=== PATIENT | male | born 1960 | race Caucasian/White ===

== ENCOUNTER 2017-07-19 17:52 | Inpatient (IN) ==
--- NOTE | 2017-07-19 18:38 | Emergency Department Report ---
Medical Clearance HPI - General Chief complaint: Medical Clearance Stated complaint: Medical Clearance for Generations Time Seen by Provider: 07/19/17 18:32 Source: patient Mode of arrival: wheelchair Limitations: no limitations - History of Present Illness HPI Narrative: 56-year-old male presents to the emergency department with a chief complaint of needing medical clearance for evaluation for generations. Patient has been acting inappropriately sexually toward staff at his skilled nursing. Patient denies homicidal/suicidal ideation or plan. Patient denies self injury or self-harm. Patient denies any pain or discomfort. Patient has 0 complaints at this time. Patient symptoms have been persistent for the past several days at his care facility. No exacerbating or remitting factors. Home medications: Home Medications Medication Instructions Recorded Confirmed Aspirin *EC* [Ecotrin] 1 tab PO DAILY 07/19/17 07/19/17 Atorvastatin Calcium 20 mg PO 1800 07/19/17 07/19/17 Bisacodyl Supp [Dulcolax] 10 mg RECTALLY PRN PRN 07/19/17 07/19/17 Cholecalciferol [Vit. D-3] 1 tab PO DAILY 07/19/17 07/19/17 Clopidogrel Bisulfate [Clopidogrel] 75 mg PO DAILY 07/19/17 07/19/17 Docusate Sodium [Colace] 1 cap PO BID 07/19/17 07/19/17 Finasteride [Proscar] 5 mg PO 1800 07/19/17 07/19/17 Furosemide [Lasix] 1 tab PO DAILY 07/19/17 07/19/17 Gabapentin 300 mg PO BID 07/19/17 07/19/17 Hydrocodone/Acetaminophen 1 tab PO Q4H PRN 07/19/17 07/19/17 [Hydrocodon-Acetaminophen 5-325] Isosorbide Mononitrate ER [Imdur] 30 mg PO DAILY 07/19/17 07/19/17 Levothyroxine Sodium 125 mcg PO 0630 07/19/17 07/19/17 Losartan Potassium 25 mg PO DAILY 07/19/17 07/19/17 Mirabegron [Myrbetriq] 50 mg PO DAILY 07/19/17 07/19/17 Multivitamin [One Daily 1 each PO DAILY 07/19/17 07/19/17 Multivitamin] Ofloxacin [Ocuflox] 1 drop LEFT EYE TID 07/19/17 07/19/17 Polyethylene Glycol 3350 [Miralax] 17 gm PO DAILY 07/19/17 07/19/17 Potassium Chloride [K-Tab ER] 20 meq PO DAILY 07/19/17 07/19/17 Tamsulosin [Flomax] 0.4 mg PO 1800 07/19/17 07/19/17 Thiamine HCl 100 mg PO DAILY 07/19/17 07/19/17 raNITIdine HCl [Ranitidine HCl] 150 mg PO 1800 07/19/17 07/19/17 Allergies/Adverse reactions: Allergies Allergy/AdvReac Type Severity Reaction Status Date / Time No Known Allergies Allergy Verified 07/19/17 18:04 Review of Systems Constitutional: Denies: fever, chills Eyes: Denies: eye pain, vision change ENT: Denies: ear pain, throat pain Cardiovascular: Denies: chest pain, palpitations Respiratory: Denies: cough, dyspnea Gastrointestinal: Denies: abdominal pain, nausea, vomiting, diarrhea Genitourinary: Denies: urgency, dysuria Musculoskeletal: Denies: back pain, arthralgia Integumentary: Denies: erythema, rash Neurological: Denies: headache, numbness Psychiatric: Denies: anxiety, depression, suicidal thoughts, homicidal thoughts Endocrine: Denies: fatigue, heat or cold intolerance Hematological/Lymphatic: Denies: easy bleeding, easy bruising Allergic/Immunologic: Denies: facial swelling, urticaria PFSH Below knee amputation, cataracts Surgical History: Below knee amputation, cataract surgery Family History: Reviewed and noncontributory - Social History Smoking status: Never smoker Substance use type: does not use Alcohol intake frequency: does not drink Physical Exam - Limitations Limitations: no limitations - General General appearance: alert, in no apparent distress - Normal Exams: Head:: Normocephalic without trauma Eyes:: Pupils are PERRLA w/ EOMI, No scleral icterus, irritation, or foreign bodies noted ENMT:: No facial trauma, nasal exudates, pharyngeal erythema, or exudates are noted Dental: No fractured, loose, or missing teeth noted Neck:: Full range of motion, without adenopathy, JVD, bruits or thyromegaly Chest/Respirations:: Clear all feliciano, with good airflow, and symmetry bilaterally Cardiovascular:: Regular rate and rhythm, without murmur or gallop, Pulses 2+ all extremities, capillary refill, <2 seconds all extremities Abdomen:: Bowel sounds positive, soft, non-tender, non-distended, no hepatosplenomegaly, masses or bruits noted Lymphatic:: No lymphadenopathy, or lymphedema noted Musculoskeletal:: No tenderness, or deformity noted, good range of motion, all extremities Integumentary:: No rashes, hives, or bruising noted, hair and nails, without abnormality Neurological:: Patient is alert, and oriented, cranial nerves, motor/sensory/ cerebellar, exams w/o gross deficits, to observation Psychiatric:: Patient exhibits, appropriate attention, emotion and affect Course Vital Signs Temperature 97.7 F 07/19/17 18:04 Pulse Rate 100 07/19/17 18:04 Respiratory Rate 16 07/19/17 18:04 Blood Pressure 130/61 07/19/17 18:04 Pulse Oximetry 95 07/19/17 18:04 Temperature 97.0 F 07/19/17 19:31 Pulse Rate 95 07/19/17 19:31 Respiratory Rate 20 07/19/17 19:31 Blood Pressure 121/60 07/19/17 19:31 Pulse Oximetry 96 07/19/17 19:31 Medical Clearance - [facility] Narrative Medical decision making narrative: Patient is discussed with Malachi from [facility] [place] who asked that if we will inspect the patient's eyes and stump and if both do not exhibit any sign of infection then the physician in [facility] [place] will complete the medical clearance evaluation as emergency department is busy. Stump and eyes appear normal. Patient is accepted at [facility] [place]. Medical clearance will be performed and the [facility] [place] unit. Patient is transferred to [facility] at this time. - Differential Diagnosis Differential Diagnosis Narrative: Metabolic disorder, behavioral disorder, depression, anxiety Disposition Clinical Impression: BEHAVIORAL DISTURBANCE Disposition: 66 To [facility] Condition: Stable Time of Disposition: 18:32 (Admit. [facility]. ) - Seen By: physician
--- OUTSIDE RECORDS SUMMARY | 2017-07-19 19:18 | External Medical Summary | Continuity of Care Document ---
:1960 Author Organization [facility] Care Team Providers Name Role Phone ERINN PADILLA MD Unavailable Unavailable Insurance Providers Payer Name Policy Number Subscriber Name Relationship Medicare A And B [id number] BrittaErinn 18 Self / Same As Patient [facility] [id number] Erinn Callejas 18 Self / Same As Patient Advance Directives Directive Response Recorded Date/Time Advanced Directives Yes 03/07/17 12:17pm Type Durable Power of Consumer Experience Consultant 03/07/17 12:17pm Chief Complaint and Reason for Visit Chief Complaint Cardiac Complaint Reason for Visit Dyspnea Problems Active Problems Medical Problem Onset Date Status Congestive heart failure Unknown Acute Dyspnea 03/07/2017 Acute Medications Current Home Medications Medication Dose Units Route Directions Days/Qty Instructions Start Date Aripiprazole 5 Mg 2.5 Mg ORAL Bedtime 12/29/16 Aspirin 81 Mg 81 Mg ORAL Daily 12/29/16 Bisacodyl 10 Mg 10 Mg RECTAL Bedtime 12/29/16 Cholecalciferol 1,000 Unit ORAL Daily 12/29/16 1,000 Unit Clopidogrel 75 Mg ORAL Daily 12/29/16 Bisulfate 75 Mg Tamsulosin Hcl 0.4 0.4 Mg ORAL Twice A Day 12/29/16 Mg Isosorbide Dinitrate 60 Mg ORAL Daily@0712/29/16 40 Mg Levothyroxine Sodium 100 Mcg ORAL Daily@0712/29/16 100 Mcg Losartan Potassium 50 Mg ORAL Daily 12/29/16 (Cozaar) 50 Mg Multivitamin 1 Each 1 Tab ORAL Daily 12/29/16 Polyethylene Glycol 17 Gm ORAL Daily 12/29/16 3350 17 Gm Potassium Chloride 20 Meq ORAL Daily@1700 12/29/16 20 Meq Thiamine Hcl 100 Mg 100 Mg ORAL Daily 12/29/16 Tramadol Hcl 100 Mg 200 Mg ORAL Daily 12/29/16 Ranitidine Hcl 300 300 Mg ORAL Bedtime 12/29/16 Mg Sulfamethoxazole/Tri 1 Tab ORAL Twice A Day 14 Days 12/29/16 methoprim (Bactrim Ds 800MG/160MG) 1 Each Carvedilol (Coreg) 12.5 Mg ORAL Twice A Day 12/29/16 12.5 Mg With Meals Docusate Sodium 100 100 Mg ORAL Twice A Day 12/29/16 Mg Gabapentin 300 Mg ORAL Twice A Day 12/29/16 (Neurontin) 300 Mg Arginine/Glutamine/C 1 Each ORAL Twice A Day 12/29/16 alcium Hmb 1 Each Cephalexin 500 Mg 500 Mg ORAL Twice A Day 10 Days 12/29/16 Furosemide 20 Mg 20 Mg ORAL Bid@0800,1200 12/29/16 Ascorbic Acid 500 Mg 500 Mg ORAL Twice A Day 12/29/16 Acetaminophen/Hydroc 1 Tab ORAL Every 4HRS as 12/29/16 odone Bitart 1 Each needed for Pain Social History Query Response Start Date Stop Date Smoking Status Former smoker Hospital Discharge Instructions No hospital discharge instructions. Plan of Care Discharge Date 03/07/17 2:13pm Disposition 01 HOME OR SELF-CARE Condition at Discharge Stable Instructions/Education Provided Shortness of Breath (Dyspnea) (DC) Prescriptions See Medication Section Referrals ERINN PADILLA MD - Additional Instructions/Education Some of your test results may not be complete prior to your leaving the Emergency Department. The Emergency Department is not authorized to give test results over the phone. Please contact the doctor's office listed in this packet of information for your final results. Follow up with your primary care physician or return to the Emergency Department for worsening or worrisome symptoms. * Emergency Department phone number: [phone], x [phone]* MEDICAL RECORD If you need copies of your X-rays, call [phone]. If you need copies of your medical record, including lab results, a signed authorization for release of records will be required. A telephone call for release of Health Information is not allowed. BILLING Billing can sometimes be confusing and frustrating. To help avoid confusion in the future, please take a moment to acquaint yourself with the billing parties for services. SERVICE BILLING [facility] Emergency Room Services [facility] Physician Services [facility] X-rays [place] [facility] Patients will receive bills for services from the appropriate provider. If you have any questions about your [facility] bill, our staff will be happy to assist you. Please call [phone], and ask for the billing department. THANK YOU for choosing [facility] as your emergency care provider! Care Plan and Goals ~~Discharge Care Plan~~ Problem: Breathing difficulty Goal: Able to breathe without shortness of air and perform usual activities. Instructions: Take medication(s) as directed. Follow physician discharge instructions. Follow up with primary care physician as directed. Use inhalers as needed. Functional Status No functional status results. Allergies, Adverse Reactions, Alerts No known allergies. Immunizations No immunization records. Vital Signs Acute Vital Signs Vital Response Date/Time Pulse 107 bpm 03/07/2017 3:20pm Respirations 14 03/07/2017 3:20pm Height 5 ft 6 in Weight 168 lb Body Mass Index 27.0 kg/m^2 Results Laboratory Results Test Name Result Units Flags Reference Collection Result Comments Date/Time Date/Time White Blood Count 9.01 10^3uL 4.0-11.0 03/07/2017 03/07/2017 12:25pm 1:07pm Red Blood Count 4.38 10^6uL L 4.50-5.50 03/07/2017 03/07/2017 12:25pm 1:07pm Hemoglobin 13.5 g/dL 13.5-17.0 03/07/2017 03/07/2017 12:25pm 1:07pm Hematocrit 40.30 % 39.00-50.00 03/07/2017 03/07/2017 12:25pm 1:07pm Mean Corpuscular 92 FL 80-100 03/07/2017 03/07/2017 Volume 12:25pm 1:07pm Mean Corpuscular 30.8 PG 26.0-34.0 03/07/2017 03/07/2017 Hemoglobin 12:25pm 1:07pm Mean Corpuscular 33.5 g/dL 31.0-37.0 03/07/2017 03/07/2017 Hemoglobin Concent 12:25pm 1:07pm Red Cell 16.0 % H 11.8-15.6 03/07/2017 03/07/2017 Distribution Width 12:25pm 1:07pm Platelet Count 181 10^3uL 150-450 03/07/2017 03/07/2017 12:25pm 1:07pm Mean Platelet 10.4 FL H 6.0-9.5 03/07/2017 03/07/2017 Volume 12:25pm 1:07pm Neutrophils (%) 59 % 51-67 03/07/2017 03/07/2017 (Auto) 12:25pm 1:07pm Lymphocytes (%) 20 % 20-46 03/07/2017 03/07/2017 (Auto) 12:25pm 1:07pm Monocytes (%) 15 % H 3-11 03/07/2017 03/07/2017 (Auto) 12:25pm 1:07pm Eosinophils (%) 4 % 0-4 03/07/2017 03/07/2017 (Auto) 12:25pm 1:07pm Basophils (%) 1 % 0-2 03/07/2017 03/07/2017 (Auto) 12:25pm 1:07pm Neutrophils # 5.3 X10^3 03/07/2017 03/07/2017 (Auto) 12:25pm 1:07pm Lymphocytes # 1.8 X10^3 03/07/2017 03/07/2017 (Auto) 12:25pm 1:07pm Monocytes # (Auto) 1.4 X10^3 03/07/2017 03/07/2017 12:25pm 1:07pm Eosinophils # 0.4 10^3uL 03/07/2017 03/07/2017 (Auto) 12:25pm 1:07pm Basophils # (Auto) 0.1 10^3uL 03/07/2017 03/07/2017 12:25pm 1:07pm Sodium Level 139 mmol/L 135-150 03/07/2017 03/07/2017 12:25pm 1:16pm Potassium Level 4.5 mmol/L 3.5-5.1 03/07/2017 03/07/2017 12:25pm 1:16pm Chloride Level 100 mmol/L 98-108 03/07/2017 03/07/2017 12:25pm 1:16pm Carbon Dioxide 24 mmol/L 22-29 03/07/2017 03/07/2017 Level 12:25pm 1:16pm Anion Gap 19.3 MEQ/L H 3-15 03/07/2017 03/07/2017 12:25pm 1:16pm Blood Urea Nitrogen 26 mg/dL H 7-18 03/07/2017 03/07/2017 12:25pm 1:16pm Creatinine 1.51 mg/dL H 0.8-1.5 03/07/2017 03/07/2017 12:25pm 1:16pm BUN/Creatinine 17 10-03/07/2017 03/07/2017 Ratio 12:25pm 1:16pm Estimat Glomerular 58.3 03/07/2017 03/07/2017 Filtration Rate 12:25pm 1:16pm Estimated GFR 48.2 03/07/2017 03/07/2017 (Non- 12:25pm 1:16pm [place] Glucose Level 92 mg/dL 70-110 03/07/2017 03/07/2017 12:25pm 1:16pm Calculated 273 mosm/L L 280-300 03/07/2017 03/07/2017 Osmolality 12:25pm 1:16pm Calcium Level 9.3 mg/dL 8.8-10.8 03/07/2017 03/07/2017 12:25pm 1:16pm Calcium/Ionized 4.0 mg/dL 3.8-4.6 03/07/2017 03/07/2017 Calcium Ratio 12:25pm 1:16pm Total Bilirubin 0.7 mg/dL 0.1-1.0 03/07/2017 03/07/2017 12:25pm 1:16pm Alkaline 97 U/L 38-126 03/07/2017 03/07/2017 Phosphatase 12:25pm 1:16pm Aspartate Amino 30 U/L 15-37 03/07/2017 03/07/2017 Transf (AST/SGOT) 12:25pm 1:16pm Alanine 36 U/L 30-65 03/07/2017 03/07/2017 Aminotransferase 12:25pm 1:16pm (ALT/SGPT) Troponin I 0.080 ng/mL 0.010-0.080 03/07/2017 03/07/2017 12:25pm 1:29pm Total Protein 7.4 g/dL 6.4-8.5 03/07/2017 03/07/2017 12:25pm 1:16pm Albumin 4.2 g/dL 3.4-5.0 03/07/2017 03/07/2017 12:25pm 1:16pm Albumin/Globulin 1.312 1.1-1.8 03/07/2017 03/07/2017 Ratio 12:25pm 1:16pm Procedures No known history of procedures. Encounters Encounter Location Arrival/Admit Date Discharge/Depart Date Attending Provider Departed Aramis 03/07/17 12:06pm 03/07/17 2:13pm KELLY PAZ Emergency Room [facility] Recent Diagnosis
--- OUTSIDE RECORDS SUMMARY | 2017-07-19 19:19 | External Medical Summary | Continuity Of Care Document ---
:1960 Author Organization [facility] Address [address] [place] [address] Phone Care Team Providers Name Role Phone ARIANA CONTRERAS DO Unavailable AISHA HAILE MD Attending Provider OTIS HICKS MD Consulting Provider Results Lab Results Visit/Account #[id number] (December 29, 2016 12:11pm - January 01, 2017 7: 05pm) Test Result Date/Time 92309-4: COMPLETE BLOOD COUNT WITH DIFF WHITE BLOOD COUNT(4.0-11.0 10E3/UL) 10.7 10E3/UL December 29, 2016 3:15pm 7.7 10E3/UL December 31, 2016 5:27am 9.0 10E3/UL January 01, 2017 6:33am RED BLOOD COUNT(4.50-5.90 10E6/UL) 3.62 10E6/UL December 29, 2016 3:15pm 3.81 10E6/UL December 31, 2016 5:27am 4.07 10E6/UL January 01, 2017 6:33am HEMOGLOBIN(13.5-17.5 G/DL) 11.0 G/DL December 29, 2016 3:15pm 11.4 G/DL December 31, 2016 5:27am 12.0 G/DL January 01, 2017 6:33am HEMATOCRIT(41.0-53.0 %) 34.5 % December 29, 2016 3:15pm 36.1 % December 31, 2016 5:27am 38.5 % January 01, 2017 6:33am MEAN CORPUSCULAR VOLUME(82.0-100.0 FL) 95.3 FL December 29, 2016 3:15pm 94.8 FL December 31, 2016 5:27am 94.6 FL January 01, 2017 6:33am 70331-3: MEAN CORPUSCULAR HEMOGLOBIN(26.0-34.0 PG) 30.4 PG December 29, 2016 3:15pm 29.9 PG December 31, 2016 5:27am 29.5 PG January 01, 2017 6:33am MEAN CORPUSCULAR HGB CONC(31.5-36.5 G/DL) 31.9 G/DL December 29, 2016 3:15pm 31.6 G/DL December 31, 2016 5:27am 31.2 G/DL January 01, 2017 6:33am RED CELL DISTRIBUTION WIDTH(11.5-14.5 %) 19.3 % December 29, 2016 3:15pm 19.1 % December 31, 2016 5:27am 19.1 % January 01, 2017 6:33am 777-3: PLATELET COUNT(150-450 10E3/UL) 185 10E3/UL December 29, 2016 3:15pm 133 10E3/UL December 31, 2016 5:27am 154 10E3/UL January 01, 2017 6:33am MEAN PLATELET VOLUME(8.2-12.4 FL) 9.3 FL December 29, 2016 3:15pm 9.2 FL December 31, 2016 5:27am 9.5 FL January 01, 2017 6:33am 770-8: NEUTROPHILS % (AUTO)(40-70 %) 85 % December 29, 2016 3:15pm 59 % December 31, 2016 5:27am 53 % January 01, 2017 6:33am LYMPHOCYTES % (AUTO)(15-45 %) 7 % December 29, 2016 3:15pm 18 % December 31, 2016 5:27am 25 % January 01, 2017 6:33am 5905-5: MONOCYTES % (AUTO)(2-10 %) 3 % December 29, 2016 3:15pm 10 % December 31, 2016 5:27am 11 % January 01, 2017 6:33am 713-8: EOSINOPHILS % (AUTO)(0-6 %) 5 % December 29, 2016 3:15pm 12 % December 31, 2016 5:27am 10 % January 01, 2017 6:33am 706-2: BASOPHILS % (AUTO)(0-1 %) 0 % December 29, 2016 3:15pm 0 % December 31, 2016 5:27am 1 % January 01, 2017 6:33am 27407-3: IMMATURE GRANS % (AUTO)(0-0 %) 0 % December 29, 2016 3:15pm 1 % December 31, 2016 5:27am 1 % January 01, 2017 6:33am NUCLEATED RBCS (AUTO)(0-0 %) 0 % December 29, 2016 3:15pm 0 % December 31, 2016 5:27am 0 % January 01, 2017 6:33am 751-8: NEUTROPHILS # (AUTO)(2.5-7.5 10E3/UL) 9.1 10E3/UL December 29, 2016 3: 15pm 4.5 10E3/UL December 31, 2016 5:27am 4.8 10E3/UL January 01, 2017 6:33am 49447-2: LYMPHOCYTES # (AUTO)(1.0-4.0 10E3/UL) 0.7 10E3/UL December 29, 2016 3:15pm 1.4 10E3/UL December 31, 2016 5:27am 2.2 10E3/UL January 01, 2017 6:33am 742-7: MONOCYTES # (AUTO)(0.2-0.8 10E3/UL) 0.3 10E3/UL December 29, 2016 3: 15pm 0.8 10E3/UL December 31, 2016 5:27am 1.0 10E3/UL January 01, 2017 6:33am 711-2: EOSINOPHILS # (AUTO)(0.0-0.4 10E3/UL) 0.6 10E3/UL December 29, 2016 3: 15pm 0.9 10E3/UL December 31, 2016 5:27am 0.9 10E3/UL January 01, 2017 6:33am 704-7: BASOPHILS # (AUTO)(0.0-0.2 10E3/UL) 0.0 10E3/UL December 29, 2016 3: 15pm 0.0 10E3/UL December 31, 2016 5:27am 0.1 10E3/UL January 01, 2017 6:33am IMMATURE GRANS # (AUTO)(0.0-0.0 10E3/UL) 0.0 10E3/UL December 29, 2016 3:15pm 0.1 10E3/UL December 31, 2016 5:27am 0.1 10E3/UL January 01, 2017 6:33am DIFF TYPE AUTOMATED December 29, 2016 3:15pm AUTOMATED December 31, 2016 5:27am AUTOMATED January 01, 2017 6:33am UA WITH SCREEN FOR CULTURE 5778-6: COLOR,URINE LIGHT YELLOW December 30, 2016 10:54am 05378-9: CLARITY,URINE CLEAR December 30, 2016 10:54am GLUCOSE, URINE(NEGATIVE MG/DL) NEGATIVE MG/DL December 30, 2016 10:54am URINE BILIRUBIN(NEGATIVE) NEGATIVE December 30, 2016 10:54am KETONES,URINE(NEGATIVE MG/DL) NEGATIVE MG/DL December 30, 2016 10:54am URINE SPECIFIC GRAVITY(1.001-1.035) 1.013 December 30, 2016 10:54am 31767-5: URINE BLOOD(NEGATIVE) NEGATIVE December 30, 2016 10:54am 2756-5: URINE PH(5.0-9.0) 6.0 December 30, 2016 10:54am URINE PROTEIN(Less than 20 MG/DL) TRACE MG/DL December 30, 2016 10:54am 37065-0: URINE UROBILINOGEN(0.2-1.0 MG/DL) 0.2-1.0 MG/DL December 30, 2016 10 :54am URINE NITRITE(NEGATIVE) NEGATIVE December 30, 2016 10:54am 5799-2: LEUKOCYTE ESTERASE ,URINE(NEGATIVE) NEGATIVE December 30, 2016 10: 54am URINE RBCS(0-3 /HPF) 0-3 /HPF December 30, 2016 10:54am URINE WBCS(0-3 /HPF) 0-3 /HPF December 30, 2016 10:54am URINE EPITHELIAL CELLS(0-3 /HPF) 0-3 /HPF December 30, 2016 10:54am URINE HYALINE CASTS(0-3 /LPF) 0-3 /LPF December 30, 2016 10:54am URINE BACTERIA(NEGATIVE /HPF) NEGATIVE /HPF December 30, 2016 10:54am 630-4: URINE CULTURE NOT INDICATED December 30, 2016 10:54am URINE MICROSCOPIC REQUIRED YES December 30, 2016 10:54am 71455-2: COMPLETE METABOLIC PROFILE GLUCOSE(70-110 MG/DL) 86 MG/DL December 29, 2016 3:15pm BLOOD UREA NITROGEN(6-20 MG/DL) 32 MG/DL December 29, 2016 3:15pm CREATININE(0.50-1.20 MG/DL) 1.79 MG/DL December 29, 2016 3:15pm 12387-7: EST GLOMERULAR FILTRATION RATE(Greater than or equal to 60) 40 December 29, 2016 3:15pm Result Comments: If the patient is of -[place] descent/extraction multiply the eGFR value by 1.212 to obtain the actual eGFR. >=60 mg/dL Normal 30-59 mg/dL Moderate Kidney Disease 15-29 mg/dL Severe Kidney Disease <15 mg/dL Kidney Failure BUN CREATININE RATIO(10.0-20.0 RATIO) 18.0 RATIO December 29, 2016 3:15pm SODIUM(135-145 MMOL/L) 132 MMOL/L December 29, 2016 3:15pm POTASSIUM(3.6-5.0 MMOL/L) 4.1 MMOL/L December 29, 2016 3:15pm CHLORIDE(101-111 MMOL/L) 96 MMOL/L December 29, 2016 3:15pm CO2(21-31 MMOL/L) 24 MMOL/L December 29, 2016 3:15pm ANION GAP(8-18) 16 December 29, 2016 3:15pm OSMO CALCULATED(270.0-290.0) 270.7 December 29, 2016 3:15pm CALCIUM(8.5-10.5 MG/DL) 8.7 MG/DL December 29, 2016 3:15pm BILIRUBIN,TOTAL(0.1-1.2 MG/DL) 0.9 MG/DL December 29, 2016 3:15pm ALKALINE PHOSPHATASE(42-121 IU/L) 101 IU/L December 29, 2016 3:15pm ASPARTATE AMINO TRANSFERASE(10-42 IU/L) 51 IU/L December 29, 2016 3:15pm ALANINE AMINOTRANSFERASE(10-60 IU/L) 113 IU/L December 29, 2016 3:15pm TOTAL PROTEIN(6.4-8.2 G/DL) 8.0 G/DL December 29, 2016 3:15pm ALBUMIN(3.5-5.5 G/DL) 3.7 G/DL December 29, 2016 3:15pm GLOBULIN(2.4-3.6) 4.3 December 29, 2016 3:15pm ALBUMIN/GLOBULIN RATIO(0.9-1.8 RATIO) 0.9 RATIO December 29, 2016 3:15pm BASIC METABOLIC PANEL GLUCOSE(70-110 MG/DL) 94 MG/DL December 30, 2016 3:12am 110 MG/DL December 31, 2016 5:27am 82 MG/DL January 01, 2017 6:33am BLOOD UREA NITROGEN(6-20 MG/DL) 35 MG/DL December 30, 2016 3:12am 34 MG/DL December 31, 2016 5:27am 42 MG/DL January 01, 2017 6:33am CREATININE(0.50-1.20 MG/DL) 1.73 MG/DL December 30, 2016 3:12am 1.49 MG/DL December 31, 2016 5:27am 1.62 MG/DL January 01, 2017 6:33am 14738-3: EST GLOMERULAR FILTRATION RATE(Greater than or equal to 60) 41 December 30, 2016 3:12am Result Comments: If the patient is of -[place] descent/extraction multiply the eGFR value by 1.212 to obtain the actual eGFR. >=60 mg/dL Normal 30-59 mg/dL Moderate Kidney Disease 15-29 mg/dL Severe Kidney Disease <15 mg/dL Kidney Failure 49 December 31, 2016 5:27am Result Comments: If the patient is of -[place] descent/extraction multiply the eGFR value by 1.212 to obtain the actual eGFR. >=60 mg/dL Normal 30-59 mg/dL Moderate Kidney Disease 15-29 mg/dL Severe Kidney Disease <15 mg/dL Kidney Failure 44 January 01, 2017 6:33am Result Comments: If the patient is of -[place] descent/extraction multiply the eGFR value by 1.212 to obtain the actual eGFR. >=60 mg/dL Normal 30-59 mg/dL Moderate Kidney Disease 15-29 mg/dL Severe Kidney Disease <15 mg/dL Kidney Failure BUN CREATININE RATIO(10.0-20.0 RATIO) 20.0 RATIO December 30, 2016 3:12am 23.0 RATIO December 31, 2016 5:27am 26.0 RATIO January 01, 2017 6:33am SODIUM(135-145 MMOL/L) 133 MMOL/L December 30, 2016 3:12am 131 MMOL/L December 31, 2016 5:27am 131 MMOL/L January 01, 2017 6:33am POTASSIUM(3.6-5.0 MMOL/L) 4.2 MMOL/L December 30, 2016 3:12am 4.7 MMOL/L December 31, 2016 5:27am 4.6 MMOL/L January 01, 2017 6:33am CHLORIDE(101-111 MMOL/L) 97 MMOL/L December 30, 2016 3:12am 97 MMOL/L December 31, 2016 5:27am 93 MMOL/L January 01, 2017 6:33am CO2(21-31 MMOL/L) 26 MMOL/L December 30, 2016 3:12am 28 MMOL/L December 31, 2016 5:27am 30 MMOL/L January 01, 2017 6:33am ANION GAP(8-18) 14 December 30, 2016 3:12am 11 December 31, 2016 5:27am 13 January 01, 2017 6:33am OSMO CALCULATED(270.0-290.0) 274.1 December 30, 2016 3:12am 270.9 December 31, 2016 5:27am 272.2 January 01, 2017 6:33am CALCIUM(8.5-10.5 MG/DL) 8.5 MG/DL December 30, 2016 3:12am 8.6 MG/DL December 31, 2016 5:27am 9.1 MG/DL January 01, 2017 6:33am 62646-3: MAGNESIUM 37900-8: MAGNESIUM(1.8-2.5 MG/DL) 1.9 MG/DL December 31, 2016 5:27am 20676-6: [place] I 13864-7: CARDIAC TROPONIN I(0.01-0.04 NG/ML) 0.47 NG/ML December 29, 2016 3: 15pm Result Comments: REFERENCE RANGES: NEGATIVE < 0.04 NG/ML POSSIBLE MYCARDIAL INVOLVEMENT >/=0.04 NG/ML INTERPRET TROPONIN I RESULT IN LIGHT OF THE TOTAL CLINICAL PRESENTATION INCLUDING CLINICAL HISTORY. ANY CONDITION RESULTING IN MYOCARDIAL INJURY CAN POTENTIALLY ELEVATE TROPONIN I LEVELS ABOVE EXPECTED NORMAL RANGES. NOTE NEW REFERENCE RANGE 0.39 NG/ML December 29, 2016 8:54pm Result Comments: REFERENCE RANGES: NEGATIVE < 0.04 NG/ML POSSIBLE MYCARDIAL INVOLVEMENT >/=0.04 NG/ML INTERPRET TROPONIN I RESULT IN LIGHT OF THE TOTAL CLINICAL PRESENTATION INCLUDING CLINICAL HISTORY. ANY CONDITION RESULTING IN MYOCARDIAL INJURY CAN POTENTIALLY ELEVATE TROPONIN I LEVELS ABOVE EXPECTED NORMAL RANGES. NOTE NEW REFERENCE RANGE 0.37 NG/ML December 30, 2016 3:12am Result Comments: REFERENCE RANGES: NEGATIVE < 0.04 NG/ML POSSIBLE MYCARDIAL INVOLVEMENT >/=0.04 NG/ML INTERPRET TROPONIN I RESULT IN LIGHT OF THE TOTAL CLINICAL PRESENTATION INCLUDING CLINICAL HISTORY. ANY CONDITION RESULTING IN MYOCARDIAL INJURY CAN POTENTIALLY ELEVATE TROPONIN I LEVELS ABOVE EXPECTED NORMAL RANGES. NOTE NEW REFERENCE RANGE 30963-7: BETA NATRIURETIC PEPTIDE 49147-5: BETA NATRIURETIC PEPTIDE(0-100 PG/ML) 1892 PG/ML December 29, 2016 3 :15pm 88115-4: LIPID PROFILE TRIGLYCERIDES(35-160 MG/DL) 81 MG/DL December 30, 2016 3:12am CHOLESTEROL(0-200 MG/DL) 114 MG/DL December 30, 2016 3:12am LDL CHOLESTEROL,DIRECT(0-99 MG/DL) 75 MG/DL December 30, 2016 3:12am VLDL CHOLESTEROL(1-53 MG/DL) 16 MG/DL December 30, 2016 3:12am HDL CHOLESTEROL(29-71 MG/DL) 25 MG/DL December 30, 2016 3:12am CHOL/HDL RATIO(0.0-4.4 RATIO) 4.6 RATIO December 30, 2016 3:12am C REACTIVE PROTEIN C REACTIVE PROTEIN(5.0-10.0 MG/L) 119.5 MG/L December 30, 2016 3:12am FREE T4 FREE T4(0.58-1.64 NG/DL) 0.69 NG/DL December 30, 2016 3:12am THYROID STIMULATING HORMONE THYROID STIMULATING HORMONE(0.340-5.600 uIU/ML) 21.570 uIU/ML December 30, 2016 3:12am 59545-9: AMMONIA 43747-8: AMMONIA(10-35 uMOL/L) 21 uMOL/L December 31, 2016 5:27am 4092-3: VANCOMYCIN,TROUGH 4092-3: VANCOMYCIN,TROUGH(5.0-10.0 UG/ML) 26.9 UG/ML January 01, 2017 3:32pm Result Comments: For serious infections the IDSA recommends a target vancomycin trough level of 15-20 ug/ml. VANCOMYCIN,RANDOM VANCOMYCIN,RANDOM(UG/ML) 18.5 UG/ML December 31, 2016 5:27am ALCOHOL ALCOHOL(0.0-5.0 MG/DL) Less than 5.0 MG/DL December 29, 2016 3:15pm DRUGS OF ABUSE, URINE 11888-4: OPIATE SCREEN,URINE(NEGATIVE) PRESUMPTIVE POSITIVE December 30, 2016 10:54am 85358-6: BARBITURATES SCREEN, URINE(NEGATIVE) NEGATIVE December 30, 2016 10: 54am 00246-9: AMPHETAMINE SCREEN,URINE(NEGATIVE) NEGATIVE December 30, 2016 10: 54am BENZODIAZEPINES SCREEN,URINE(NEGATIVE) NEGATIVE December 30, 2016 10:54am COCAINE SCREEN, URINE(NEGATIVE) NEGATIVE December 30, 2016 10:54am CANNABINOID SCREEN,URINE(NEGATIVE) NEGATIVE December 30, 2016 10:54am Microbiology Results Visit/Account #[id number] (December 29, 2016 12:11pm - January 01, 2017 7: 05pm) Procedure Result BLOOD CULTURE BLOOD CULTURE Result Instance On December 29, 2016 3:15pm Source: BLOOD Special Result Comments: No growth Result Instance On December 29, 2016 3:26pm Source: BLOOD Special Result Comments: No growth Allergies and Adverse Reactions Allergies and Adverse Reactions Patient Unit Number: [id number] Agent Type Reaction Severity Status NO KNOWN ALLERGIES Drug Allergy Unknown Unknown Active Problem List Problem List Visit/Account #[id number] (December 29, 2016 12:11pm - January 01, 2017 7: 05pm) Acute Problems: Code/Condition Comments Documented Start Documented Resolved Code(s) Date Date Acute kidney injury ICD10: N17.9 Acute kidney injury ICD9: 584.9 Acute kidney injury SNOMED: [id number] Acute kidney injury Chronic Problems: Cardiomyopathy ICD10: I42.9 Cardiomyopathy ICD9: 425.4 Cardiomyopathy SNOMED: [id number] Cardiomyopathy Patient Unit Number: [id number] Chronic Problems: Code/Condition Comments Documented Start Documented Code(s) Date Resolved Date Atherosclerosis of left lower extremity with gangrene ICD10: I70.262 Atherosclerosis of left lower extremity with gangrene ICD9: 440.24 Atherosclerosis of left lower extremity with gangrene SNOMED: [id number] Atherosclerosis of left lower extremity with gangrene Plan of Care Plan Of Care Visit/Account #[id number] (December 29, 2016 12:11pm - January 01, 2017 7: 05pm) Patient Instructions Instructions Anemia DI for Heart Failure DI for Cardiomyopathy Atorvastatin Isosorbide Furosemide Losartan Vital Signs Vital Signs Visit/Account #[id number] (December 29, 2016 12:11pm - January 01, 2017 7: 05pm) Sign First Result Last Result Code(s) Blood Pressure 101/ 72 mm[Hg] On December 29, 2016 2:40pm 91/ 75 mm[Hg] On January 01, 2017 6:17pm 8480-6 BP Systolic Heart Rate/Pulse Pulse Rate (adult): 110 /min On December 29, 2016 2:40pm Pulse Rate (adult): 97 /min On January 01, 2017 6:17pm 8867-4 Heart Rate 8893-0 Pulse rate Respiratory Rate Respiratory Rate: 20 /min On December 29, 2016 2:40pm Respiratory Rate: 20 /min On January 01, 2017 6:17pm 9279-1 Respiratory rate Temperature in Fahrenheit Temperature (Fahrenheit): 99.8 [degF] On December 29, 2016 2:40pm Temperature (Fahrenheit): 97.0 [degF] On January 01, 2017 6: 17pm 8310-5 Body Temperature Functional Status Functional and Cognitive Status No Functional Status Data Medications Home Medications - Medications that the patient was taking prior to arrival at the hospital Visit/Account #[id number] (December 29, 2016 12:11pm - January 01, 2017 7: 05pm) Medication Route Sig/Schedule Precondition/Indication Comments/ Instructions Codes ECOTRIN(ASPIRIN) 81 MG TABLET.DR ORAL DAILY ECOTRIN (ASPIRIN) NDC: 22676870560 Dose: 81 MG COZAAR(LOSARTAN POTASSIUM) 50 MG TABLET ORAL DAILY Losartan Potassium 50 MG Oral Tablet [Cozaar] (RxNorm): 892387 Dose: 50 MG COZAAR (LOSARTAN POTASSIUM) NDC: 83571245505 Isordil(ISOSORBIDE DINITRATE) 40 MG TABLET ORAL 30 MIN BEFORE BKFST Isosorbide Dinitrate 40 MG Oral Tablet [Isordil] (RxNorm): 994289 Dose: 60 MG Isordil (ISOSORBIDE DINITRATE) NDC: 73040225011 PLAVIX(CLOPIDOGREL BISULFATE) 75 MG TAB ORAL DAILY clopidogrel 75 MG Oral Tablet [Plavix] (RxNorm): 828931 Dose: 75 MG PLAVIX (CLOPIDOGREL BISULFATE) NDC: 03743852309 SYNTHROID(LEVOTHYROXINE SODIUM) 0.1 MG TABLET ORAL 60 MIN BEFORE BKFST Levothyroxine Sodium 0.1 MG Oral Tablet [Synthroid] (RxNorm): 541566 Dose: 0.1 MG SYNTHROID (LEVOTHYROXINE SODIUM) NDC: 46482142122 Tramadol HCl ER(TraMADol HCL) 100 MG CPBP.25.75 ORAL DAILY 24 HR tramadol hydrochloride 100 MG Extended Release Oral Capsule (RxNorm): 3663952 Dose: 200 MG Tramadol HCl ER (TraMADol HCL) NDC: 05800160902 Vitamin D3(CHOLECALCIFEROL (VITAMIN D3)) 1000 UNIT CAPSULE ORAL DAILY Vitamin D3 (CHOLECALCIFEROL (VITAMIN D3)) NDC: 61757387124 Dose: 1000 UNIT Zantac(RaNITIdine HCL) 300 MG TABLET ORAL AT BEDTIME Ranitidine 300 MG Oral Tablet (RxNorm): 615214 Dose: 300 MG Zantac (RaNITIdine HCL) NDC: 28294347572 ABILIFY(ARIPiprazole) 5 MG TAB ORAL AT BEDTIME aripiprazole 5 MG Oral Tablet [Abilify] (RxNorm): 499746 Dose: 2.5 MG ABILIFY (ARIPiprazole) NDC: 47928408502 FLOMAX(TAMSULOSIN HCL) 0.4 MG CAP.ER.24H ORAL DAILY Tamsulosin hydrochloride 0.4 MG Oral Capsule [Flomax] (RxNorm): 625143 Dose: 0.4 MG FLOMAX (TAMSULOSIN HCL) NDC: 25175389470 VITAMIN B1(THIAMINE) 100 MG TABLET ORAL DAILY VITAMIN B1 (THIAMINE) NDC : 68405387166 Dose: 100 MG Vitamin C 500 Mg/15 Ml Liquid(VIT C/ASCORBATE CA/ASCORB SOD) 500 MG/15 ML LIQUID ORAL TWICE A DAY Vitamin C 500 Mg/15 Ml Liquid (VIT C/ASCORBATE CA /ASCORB SOD) NDC: 18497864635 Dose: 500 MG Jose(NUTRITIONAL SUPPLEMENT/FIBER) 1 PKT POWD.PACK ORAL TWICE A DAY Jose (NUTRITIONAL SUPPLEMENT/FIBER) NDC: 86798503436 Dose: 1 PKT DULCOLAX SUPP(BISACODYL) 10 MG SUPP.RECT RECTALLY DAILY Bisacodyl 10 MG Rectal Suppository [Dulcolax] (RxNorm): 330060 Dose: 10 MG DULCOLAX SUPP (BISACODYL) NDC: 00721929677 Coreg(CARVEDILOL) 12.5 MG TAB ORAL WITH BREAKFAST & SUPPER carvedilol 12.5 MG Oral Tablet [Coreg] (RxNorm): 800069 Dose: 12.5 MG Coreg (CARVEDILOL) NDC: 98665801691 COLACE(DOCUSATE SODIUM) 100 MG CAPSULE ORAL TWICE A DAY Docusate Sodium 100 MG Oral Capsule [Colace] (RxNorm): 2382787 Dose: 100 MG COLACE (DOCUSATE SODIUM) NDC: 42651243079 Neurontin(GABAPENTIN) 300 MG CAP ORAL TWICE A DAY gabapentin 300 MG Oral Capsule [Neurontin] (RxNorm): 050956 Dose: 300 MG Neurontin (GABAPENTIN) NDC: 50035598579 Glycolax(POLYETHYLENE GLYCOL) 17 GM POWDER ORAL DAILY POLYETHYLENE GLYCOL 3350 142 MG/ML Oral Solution [Miralax] (RxNorm): 875172 Dose: 17 GM Glycolax (POLYETHYLENE GLYCOL) NDC: 17356099428 DULCOLAX SUPP(BISACODYL) 10 MG SUPP.RECT RECTALLY DAILY Bisacodyl 10 MG Rectal Suppository [Dulcolax] (RxNorm): 692853 Dose: 10 MG DULCOLAX SUPP (BISACODYL) NDC: 60413672213 COREG(CARVEDILOL) 12.5 MG TAB ORAL WITH BREAKFAST & SUPPER carvedilol 12.5 MG Oral Tablet [Coreg] (RxNorm): 797224 Dose: 12.5 MG COREG (CARVEDILOL) NDC: 22787027877 COLACE(DOCUSATE SODIUM) 100 MG CAPSULE ORAL TWICE A DAY Docusate Sodium 100 MG Oral Capsule (RxNorm): 7982099 Dose: 100 MG COLACE (DOCUSATE SODIUM) NDC: 10133952449 GABAPENTIN(GABAPENTIN) 300 MG CAPSULE ORAL TWICE A DAY gabapentin 300 MG Oral Capsule (RxNorm): 429227 Dose: 300 MG GABAPENTIN (GABAPENTIN) NDC: 78313376018 Glycolax(POLYETHYLENE GLYCOL) 17 GM POWDER ORAL DAILY POLYETHYLENE GLYCOL 3350 142 MG/ML Oral Solution [Miralax] (RxNorm): 683186 Dose: 17 GM Glycolax (POLYETHYLENE GLYCOL) NDC: 84978930202 MULTIVITAMIN WITH MINERALS(MULTIVITAMINS/MINERALS) 1 TAB TABLET ORAL DAILY MULTIVITAMIN WITH MINERALS (MULTIVITAMINS/MINERALS) NDC: 43992995025 Dose: 1 TAB POTASSIUM CHLORIDE(POTASSIUM CHLORIDE) 20 MEQ TAB.ER.PRT ORAL DAILY Microencapsulated Potassium Chloride 20 MEQ Extended Release Oral Tablet (RxNorm ): 4688560 Dose: 20 MEQ POTASSIUM CHLORIDE (POTASSIUM CHLORIDE) NDC: 23506658346 Cephalexin(CEPHALEXIN MONOHYDRATE) 500 MG TABLET ORAL TWICE A DAY Cephalexin 500 MG Oral Tablet (RxNorm): 573255 Dose: 500 MG Cephalexin (CEPHALEXIN MONOHYDRATE) NDC: 66255481961 LASIX(FUROSEMIDE) 20 MG TABLET ORAL TWICE A DAY Furosemide 20 MG Oral Tablet [Lasix] (RxNorm): 372645 Dose: 20 MG LASIX (FUROSEMIDE) NDC: 09120444076 ASCORBIC ACID(ASCORBIC ACID) 250 MG TABLET ORAL TWICE A DAY Ascorbic Acid 250 MG Oral Tablet (RxNorm): 124194 Dose: 250 MG ASCORBIC ACID (ASCORBIC ACID) NDC: 67788601791 NORCO 5-325 TABLET(HYDROcodone BIT/ACETAMINOPHEN) 1 EACH TABLET ORAL Q4H PAIN Acetaminophen 325 MG / Hydrocodone Bitartrate 5 MG Oral Tablet (RxNorm) : 166692 Dose: 1 TAB NORCO 5-325 TABLET (HYDROcodone BIT/ACETAMINOPHEN) NDC: 89926673127 Lasix(FUROSEMIDE) 40 MG TAB ORAL DAILY Lasix (FUROSEMIDE) NDC: 51865086883 Dose: 40 MG COZAAR(LOSARTAN POTASSIUM) 25 MG TAB ORAL DAILY COZAAR (LOSARTAN POTASSIUM) NDC: 74806981863 Dose: 25 MG IMDUR ER(ISOSORBIDE MONONITRATE) 30 MG TAB ORAL DAILY 24 HR Isosorbide Mononitrate 30 MG Extended Release Oral Tablet (RxNorm): 565184 Dose: 30 MG IMDUR ER (ISOSORBIDE MONONITRATE) NDC: 42025816895 LIPITOR(ATORVASTATIN) 20 MG TAB ORAL AT BEDTIME atorvastatin 20 MG Oral Tablet [Lipitor] (RxNorm): 490916 Dose: 20 MG LIPITOR (ATORVASTATIN) NDC: 68193254119 Inpatient/Ordered Medications - Medications administered during hospital visit Visit/Account #[id number] (December 29, 2016 12:11pm - January 01, 2017 7: 05pm) Medication Route Sig/Schedule Precondition/Indication Comments/ Instructions Codes LASIX(FUROSEMIDE) 40 MG TAB ORAL BID@, Furosemide 40 MG Oral Tablet (RxNorm): 059385 Dose: 40 MG LASIX (FUROSEMIDE) NDC: 84301006579 ALDACTONE(SPIRONOLACTONE) 25 MG TAB ORAL DAILY Spironolactone 25 MG Oral Tablet (RxNorm): 372855 Dose: 12.5 MG ALDACTONE (SPIRONOLACTONE) NDC: 39181683291 COREG(CARVEDILOL) 3.125 MG TAB ORAL WITH BREAKFAST & SUPPER carvedilol 3.125 MG Oral Tablet [Coreg] (RxNorm): 890492 Dose: 3.125 MG COREG (CARVEDILOL) NDC: 57545993645 ECOTRIN(ASPIRIN) 81 MG TAB ORAL DAILY Aspirin 81 MG Delayed Release Oral Tablet (RxNorm): 539326 Dose: 81 MG ECOTRIN (ASPIRIN) NDC: 24335579939 PLAVIX(CLOPIDOGREL BISULFATE) 75 MG TAB ORAL DAILY clopidogrel 75 MG Oral Tablet [Plavix] (RxNorm): 490990 Dose: 75 MG PLAVIX (CLOPIDOGREL BISULFATE) NDC: 25776783435 SYNTHROID(LEVOTHYROXINE SODIUM) 0.1 MG TAB ORAL DAILY@06 Label Comments: Levothyroxine Sodium 0.1 MG Oral Tablet (RxNorm): 317576 Dose: 0.1 MG 0.1 RQ=999 MCG SYNTHROID (LEVOTHYROXINE SODIUM) NDC: 33674684887 MIRALAX(POLYETHYLENE GLYCOL) 17 GM POWDER ORAL DAILY Label Comments: POLYETHYLENE GLYCOL 3350 142 MG/ML Oral Solution [Miralax] (RxNorm): 247133 Dose: 17 GM DISSOLVE IN 8 OZ OF WATER MIRALAX (POLYETHYLENE GLYCOL) NDC: 41102242172 FLOMAX(TAMSULOSIN HCL) 0.4 MG CAP ORAL DAILY@17 Label Comments: Tamsulosin hydrochloride 0.4 MG Oral Capsule (RxNorm): 259975 Dose: 0.4 MG MAY INCREASE FALL RISK FLOMAX (TAMSULOSIN HCL) NDC: 11983393011 VITAMIN B1(THIAMINE HCL) 100 MG TAB ORAL DAILY Thiamine 100 MG Oral Tablet (RxNorm): 315994 Dose: 100 MG VITAMIN B1 (THIAMINE HCL) NDC: 35647605299 VITAMIN D(CHOLECALCIFEROL) 1000 UNIT TAB ORAL DAILY Cholecalciferol 1000 UNT Oral Tablet (RxNorm): 608248 Dose: 1000 UNIT VITAMIN D (CHOLECALCIFEROL) NDC: 52031458079 LOVENOX(ENOXAPARIN) 60 MG/0.6 ML INJECTION SUBCUTANEOUSLY NOW Label Comments: 0.6 ML Enoxaparin sodium 100 MG/ML Prefilled Syringe [Lovenox] ( RxNorm): 385344 Dose: 0.6 ML INJECT SC INTO ABDOMINAL WALL ONLY. DOSED AT 1 MG/KG BASED ON PT WEIGHT OF 64.4 KG AND LOVENOX (ENOXAPARIN ) NDC: 96357418486 ROUNDED PER PROTOCOL. COLACE(DOCUSATE SODIUM) 100 MG CAP ORAL TWICE A DAY Docusate Sodium 100 MG Oral Capsule (RxNorm): 8657660 Dose: 100 MG COLACE (DOCUSATE SODIUM) NDC: 54201252286 NORCO 5-325(HYDROcodone BIT/ACETAMINOPHEN) 1 TAB TAB ORAL Q4H PRN Reason: MODERATE PAIN Label Comments: Acetaminophen 325 MG / Hydrocodone Bitartrate 5 MG Oral Tablet (RxNorm): 360131 Dose: 0 TAB <<may be substituted for 5/500>> REC MAX DAILY DOSE ACETAMINOPHEN: 4000 MG/24 HR NORCO 5-325 ( HYDROcodone BIT/ACETAMINOPHEN) NDC: 41390853011 MAY INCREASE FALL RISK Special Dose Instructions: 1-2 TABS LOPRESSOR INJ(METOPROLOL TARTRATE) 5 MG/5 ML INJECTION INTRAVEN NOW Label Comments: 5 ML Metoprolol Tartrate 1 MG/ML Injection (RxNorm): 936986 Dose: 5 ML MAY INCREASE FALL RISK LOPRESSOR INJ (METOPROLOL TARTRATE) NDC: 59230636787 PEPCID(FAMOTIDINE) 40 MG TAB ORAL AT BEDTIME Label Comments: Famotidine 40 MG Oral Tablet (RxNorm): 767060 Dose: 40 MG FORMULARY SUBSTITUTION OF ZANTAC 300MG PEPCID (FAMOTIDINE) NDC: 51041268170 ABILIFY(ARIPiprazole) 5 MG TAB ORAL AT BEDTIME Label Comments: aripiprazole 5 MG Oral Tablet [Abilify] (RxNorm): 697121 Dose: 2.5 MG MAY INCREASE FALL RISK ABILIFY (ARIPiprazole) NDC: 25891704848 COREG(CARVEDILOL) 6.25 MG TAB ORAL WITH BREAKFAST & SUPPER carvedilol 6.25 MG Oral Tablet [Coreg] (RxNorm): 232848 Dose: 6.25 MG COREG (CARVEDILOL) NDC: 83724883523 LASIX(FUROSEMIDE) 40 MG TAB ORAL DAILY Furosemide 40 MG Oral Tablet ( RxNorm): 893340 Dose: 40 MG LASIX (FUROSEMIDE) NDC: 21813105505 COZAAR(LOSARTAN POTASSIUM) 25 MG TAB ORAL DAILY Label Comments: Losartan Potassium 25 MG Oral Tablet (RxNorm): 692558 Dose: 25 MG MAY INCREASE FALL RISK COZAAR (LOSARTAN POTASSIUM) NDC: 34734453639 IMDUR-ER(ISOSORBIDE MONONITRATE) 30 MG TAB ORAL DAILY 24 HR Isosorbide Mononitrate 30 MG Extended Release Oral Tablet (RxNorm): 016722 Dose: 30 MG IMDUR-ER (ISOSORBIDE MONONITRATE) NDC: 98437451613 LIPITOR(ATORVASTATIN) 20 MG TAB ORAL AT BEDTIME Label Comments: atorvastatin 20 MG Oral Tablet [Lipitor] (RxNorm): 299989 Dose: 20 MG TERATOGENIC. WOMEN SHOULD NOT HANDLE OR CRUSH. LIPITOR (ATORVASTATIN) NDC: 90415879600 LOVENOX(ENOXAPARIN) 30 MG/0.3 ML INJECTION SUBCUTANEOUSLY DAILY@06 Label Comments: 0.3 ML Enoxaparin sodium 100 MG/ML Prefilled Syringe [Lovenox] ( RxNorm): 085590 Dose: 0.3 ML INJECT SC INTO ABDOMINAL WALL ONLY. LOVENOX (ENOXAPARIN) NDC: 40863216998 IV Medication INTRAVEN BOWEN (Rate: 200 MLS/HR Duration: 1 HR) Clinical Indication: ABX non-surgical pt Label Comments: Carriers: REFRIGERATE Carriers: 200 ML Vancomycin 5 MG/ML Injection (RxNorm): 2916316 VANCOCIN 1 GM/200 ML PM(VANCOMYCIN/DEXTROSE,ISO-OSM) 1 GM/200 ML INJECTION VANCOCIN 1 GM/200 ML PM (VANCOMYCIN/DEXTROSE,ISO-OSM) NDC: 76943353302 Dose: 200 ML IV Medication INTRAVEN Q12H (Rate: 250 MLS/HR Duration: 1 HR) Clinical Indication: ABX non-surgical pt Label Comments: Additives: REFRIGERATE Additives: Expires 24 HRS after preparation Vancomycin 1000 MG Injection (RxNorm): 8049388 VANCOCIN(VANCOMYCIN HCL) 1000 MG INJECTION VANCOCIN (VANCOMYCIN HCL) NDC: 18815215938 Dose: 750 MG Carriers: Carriers: 250 ML Sodium Chloride 9 MG/ML Injection (RxNorm): 5817183 SODIUM CHLORIDE 250 ML INJECTION Dose: 250 ML (SODIUM CHLORIDE) NDC: 26428466569 LOVENOX(ENOXAPARIN) 40 MG/0.4 ML INJECTION SUBCUTANEOUSLY DAILY@06 Label Comments: 0.4 ML Enoxaparin sodium 100 MG/ML Prefilled Syringe [Lovenox] ( RxNorm): 061507 Dose: 0.4 ML INJECT SC INTO ABDOMINAL WALL ONLY. LOVENOX (ENOXAPARIN) NDC: 61646875647 IV Medication INTRAVEN Q12H (Rate: 250 MLS/HR Duration: 1 HR) Clinical Indication: ABX non-surgical pt Label Comments: Additives: REFRIGERATE Additives: Expires 24 HRS after preparation Vancomycin 1000 MG Injection (RxNorm): 5676986 VANCOCIN(VANCOMYCIN HCL) 1000 MG INJECTION VANCOCIN (VANCOMYCIN HCL) NDC: 64682127922 Dose: 750 MG Carriers: Carriers: 250 ML Sodium Chloride 9 MG/ML Injection (RxNorm): 2324353 SODIUM CHLORIDE 250 ML INJECTION Dose: 250 ML (SODIUM CHLORIDE) NDC: 62445161237 Discharge Medications - Medications that patient should continue to take. Review with physician Visit/Account #[id number] (December 29, 2016 12:11pm - January 01, 2017 7: 05pm) Medication Route Sig/Schedule Precondition/Indication Comments/ Instructions Codes ECOTRIN(ASPIRIN) 81 MG TABLET. ORAL DAILY ECOTRIN (ASPIRIN) NDC: 82138494014 Dose: 81 MG PLAVIX(CLOPIDOGREL BISULFATE) 75 MG TAB ORAL DAILY clopidogrel 75 MG Oral Tablet [Plavix] (RxNorm): 390844 Dose: 75 MG PLAVIX (CLOPIDOGREL BISULFATE) NDC: 64835584459 SYNTHROID(LEVOTHYROXINE SODIUM) 0.1 MG TABLET ORAL 60 MIN BEFORE BKFST Levothyroxine Sodium 0.1 MG Oral Tablet [Synthroid] (RxNorm): 182974 Dose: 0.1 MG SYNTHROID (LEVOTHYROXINE SODIUM) NDC: 31555268511 Tramadol HCl ER(TraMADol HCL) 100 MG CPBP.25.75 ORAL DAILY 24 HR tramadol hydrochloride 100 MG Extended Release Oral Capsule (RxNorm): 0581079 Dose: 200 MG Tramadol HCl ER (TraMADol HCL) NDC: 63429746843 Vitamin D3(CHOLECALCIFEROL (VITAMIN D3)) 1000 UNIT CAPSULE ORAL DAILY Vitamin D3 (CHOLECALCIFEROL (VITAMIN D3)) NDC: 69571057021 Dose: 1000 UNIT Zantac(RaNITIdine HCL) 300 MG TABLET ORAL AT BEDTIME Ranitidine 300 MG Oral Tablet (RxNorm): 657997 Dose: 300 MG Zantac (RaNITIdine HCL) NDC: 93226143402 ABILIFY(ARIPiprazole) 5 MG TAB ORAL AT BEDTIME aripiprazole 5 MG Oral Tablet [Abilify] (RxNorm): 643952 Dose: 2.5 MG ABILIFY (ARIPiprazole) NDC: 11308480406 FLOMAX(TAMSULOSIN HCL) 0.4 MG CAP.ER.24H ORAL DAILY Tamsulosin hydrochloride 0.4 MG Oral Capsule [Flomax] (RxNorm): 336528 Dose: 0.4 MG FLOMAX (TAMSULOSIN HCL) NDC: 78805771271 VITAMIN B1(THIAMINE) 100 MG TABLET ORAL DAILY VITAMIN B1 (THIAMINE) NDC : 89106788219 Dose: 100 MG Jose(NUTRITIONAL SUPPLEMENT/FIBER) 1 PKT POWD.PACK ORAL TWICE A DAY Jose (NUTRITIONAL SUPPLEMENT/FIBER) NDC: 86665705891 Dose: 1 PKT DULCOLAX SUPP(BISACODYL) 10 MG SUPP.RECT RECTALLY DAILY Bisacodyl 10 MG Rectal Suppository [Dulcolax] (RxNorm): 912101 Dose: 10 MG DULCOLAX SUPP (BISACODYL) NDC: 66842056426 COLACE(DOCUSATE SODIUM) 100 MG CAPSULE ORAL TWICE A DAY Docusate Sodium 100 MG Oral Capsule (RxNorm): 2610284 Dose: 100 MG COLACE (DOCUSATE SODIUM) NDC: 60984661826 GABAPENTIN(GABAPENTIN) 300 MG CAPSULE ORAL TWICE A DAY gabapentin 300 MG Oral Capsule (RxNorm): 986984 Dose: 300 MG GABAPENTIN (GABAPENTIN) NDC: 06896045140 Glycolax(POLYETHYLENE GLYCOL) 17 GM POWDER ORAL DAILY POLYETHYLENE GLYCOL 3350 142 MG/ML Oral Solution [Miralax] (RxNorm): 788927 Dose: 17 GM Glycolax (POLYETHYLENE GLYCOL) NDC: 39608870224 MULTIVITAMIN WITH MINERALS(MULTIVITAMINS/MINERALS) 1 TAB TABLET ORAL DAILY MULTIVITAMIN WITH MINERALS (MULTIVITAMINS/MINERALS) NDC: 53789490086 Dose: 1 TAB POTASSIUM CHLORIDE(POTASSIUM CHLORIDE) 20 MEQ TAB.ER.PRT ORAL DAILY Microencapsulated Potassium Chloride 20 MEQ Extended Release Oral Tablet (RxNorm ): 2250211 Dose: 20 MEQ POTASSIUM CHLORIDE (POTASSIUM CHLORIDE) NDC: 64978648372 ASCORBIC ACID(ASCORBIC ACID) 250 MG TABLET ORAL TWICE A DAY Ascorbic Acid 250 MG Oral Tablet (RxNorm): 923328 Dose: 250 MG ASCORBIC ACID (ASCORBIC ACID) NDC: 28016697542 NORCO 5-325 TABLET(HYDROcodone BIT/ACETAMINOPHEN) 1 EACH TABLET ORAL Q4H PAIN Acetaminophen 325 MG / Hydrocodone Bitartrate 5 MG Oral Tablet (RxNorm) : 611555 Dose: 1 TAB NORCO 5-325 TABLET (HYDROcodone BIT/ACETAMINOPHEN) NDC: 66810229085 Lasix(FUROSEMIDE) 40 MG TAB ORAL DAILY Lasix (FUROSEMIDE) NDC: 22917494806 Dose: 40 MG COZAAR(LOSARTAN POTASSIUM) 25 MG TAB ORAL DAILY COZAAR (LOSARTAN POTASSIUM) NDC: 98620408504 Dose: 25 MG IMDUR ER(ISOSORBIDE MONONITRATE) 30 MG TAB ORAL DAILY 24 HR Isosorbide Mononitrate 30 MG Extended Release Oral Tablet (RxNorm): 283845 Dose: 30 MG IMDUR ER (ISOSORBIDE MONONITRATE) NDC: 03611614280 LIPITOR(ATORVASTATIN) 20 MG TAB ORAL AT BEDTIME atorvastatin 20 MG Oral Tablet [Lipitor] (RxNorm): 688608 Dose: 20 MG LIPITOR (ATORVASTATIN) [facility]: [id number] History Of Encounters Encounters Visit/Account #[id number] (December 29, 2016 12:11pm - January 01, 2017 7: 05pm) Account Status Physican Of Reason For Visit Diagnosis Start Date/Time Stop Date/Time Record Visit IN AISHA HAILE MD SEPSIS Not Available Dec 29, 2016 12:11pm Jan 01, 2017 7:05pm History of Procedures Procedure List No procedures recorded. Discharge Instructions Discharge Instructions Visit/Account #[id number] (December 29, 2016 12:11pm - January 01, 2017 7: 05pm) DISCHARGE INSTRUCTIONS Physician Documentation PROVIDER INSTRUCTIONS Discharge Diet Low Salt, As Tolerated Discharge Activity/Weight Bearing Status As tolerated Equipment/Supplies Wheelchair Other Discharge Instructions Weigh patient every morning before breakfast and call Dr. Stevens if 2 pounds over his USUAL AM weight. He made need extra diuretic to avoid volume overload. Discharge Diet Low Salt, As Tolerated Equipment/Supplies Wheelchair Discharge Activity/Weight Bearing Status As tolerated Other Discharge Instructions Weigh patient every morning before breakfast and call Dr. Stevens if 2 pounds over his USUAL AM weight. He made need extra diuretic to avoid volume overload. CARE MANAGEMENT/HOME HEALTH Care Management shelter and PT and OT WOUND/INCISION/CATHETER CARE Incision/Wound Care See printed orders in packet. REASON TO CALL PROVIDER Notify Physician if: Fever over 100.5 degrees by mouth, increased shortness of breath or AM weight 2 pounds or more over USUAL morning weight. FOLLOW UP APPOINTMENTS Follow Up Appointment Date/Time: Please make follow up appt. with Dr. Stevens within the next 2 weeks. [phone]. Social History Social History No Social History Data. Immunizations Immunizations Patient Unit Number: [id number] Immunizations No immunizations recorded.
--- OUTSIDE RECORDS SUMMARY | 2017-07-19 19:19 | External Medical Summary | Continuity of Care Document ---
:1960 Author Organization [facility] Care Team Providers Name Role Phone ERINN PADILLA MD Unavailable Unavailable Insurance Providers Payer Name Policy Number Subscriber Name Relationship Medicare A And B [id number] BrittaErinn 18 Self / Same As Patient Advance Directives Directive Response Recorded Date/Time Advanced Directives Unknown 12/29/16 8:41am Type Durable Power of Financial Analyst Accountant 12/29/16 8:41am Chief Complaint and Reason for Visit Chief Complaint Genitourinary Complaint Reason for Visit Congestive heart failure Problems Active Problems Medical Problem Onset Date Status Congestive heart failure Unknown Acute Medications Current Home Medications Medication Dose [...] Response Start Date Stop Date Smoking Status Current every day smoker Hospital Discharge Instructions No hospital discharge instructions. Plan of Care Discharge Date 12/29/16 1:35pm Disposition 02 XFER SHT-TRM HOSP - ACUTE Condition at Discharge Stable Prescriptions See Medication Section Referrals ERINN PADILLA [...] worrisome symptoms. * Emergency Department phone number: [phone], x [phone]* MEDICAL RECORD If you need copies of your X-rays, call [phone] x [phone]. If you need copies of [...] services. SERVICE BILLING [facility] Emergency Room Services [facility] Physician Services [facility] X-rays [place] [facility] Patients will receive bills for services from the appropriate provider. If you have any questions about your [facility] bill, our staff will be happy to assist you. Please call [phone], and ask for the billing department. THANK YOU for choosing [facility] as your emergency care provider! Care Plan [...] Signs Acute Vital Signs Vital Response Date/Time Temperature (Fahrenheit) 98.2 12/29/2016 8:41am Pulse 124 bpm 12/29/2016 8:41am Respirations 20 12/29/2016 8:41am Height 5 ft 6 in Weight 146 lb Body Mass Index 23.0 kg/m^2 Results Laboratory Results Test Name Result Units Flags Reference Collection Result Comments Date/Time Date/Time White Blood Count 11.93 10^3uL H 4.0-11.0 12/29/2016 12/29/2016 9:20am 10:25am Red Blood Count 3.27 10^6uL L 4.50-5.50 12/29/2016 12/29/2016 9:20am 10:25am Hemoglobin 10.0 g/dL L 13.5-17.0 12/29/2016 12/29/2016 9:20am 10:25am Hematocrit 29.90 % L 39.00-50.00 12/29/2016 12/29/2016 9:20am 10:25am Mean Corpuscular 91 FL 80-100 12/29/2016 12/29/2016 Volume 9:20am 10:25am Mean Corpuscular 30.6 PG 26.0-34.0 12/29/2016 12/29/2016 Hemoglobin 9:20am 10:25am Mean Corpuscular 33.4 g/dL 31.0-37.0 12/29/2016 12/29/2016 Hemoglobin Concent 9:20am 10:25am Red Cell 18.6 % H 11.8-15.6 12/29/2016 12/29/2016 Distribution Width 9:20am 10:25am Platelet Count 188 10^3uL 150-450 12/29/2016 12/29/2016 9:20am 10:25am Mean Platelet 9.2 FL 6.0-9.5 12/29/2016 12/29/2016 Volume 9:20am 10:25am Differential Total 100 12/29/2016 12/29/2016 Cells Counted 9:20am 11:04am Segmented 81 % H 51-67 12/29/2016 12/29/2016 Neutrophils % 9:20am 11:04am Band Neutrophils % 4 % 0-6 12/29/2016 12/29/2016 9:20am 11:04am Lymphocytes % 2 % L 20-46 12/29/2016 12/29/2016 (Manual) 9:20am 11:04am Monocytes % 5 % 3-11 12/29/2016 12/29/2016 (Manual) 9:20am 11:04am Eosinophils % 8 % H 0-4 12/29/2016 12/29/2016 (Manual) 9:20am 11:04am Basophils % 0 % 0-2 12/29/2016 12/29/2016 (Manual) 9:20am 11:04am Metamyelocytes % 0 % 0-1 12/29/2016 12/29/2016 9:20am 11:04am Neutrophils # 9.7 # 12/29/2016 12/29/2016 9:20am 11:04am Absolute Band 0.4 # 12/29/2016 12/29/2016 Neutrophils 9:20am 11:04am Lymphocytes # 0.2 # 12/29/2016 12/29/2016 9:20am 11:04am Monocytes # 0.6 # 12/29/2016 12/29/2016 9:20am 11:04am Eosinophils # 0.9 # 12/29/2016 12/29/2016 9:20am 11:04am Basophils # 0.0 # 12/29/2016 12/29/2016 (Manual) 9:20am 11:04am Blood Morphology SEE NORMAL 12/29/2016 12/29/2016 Comment REFERENCE 9:20am 11:04am Polychromasia SLIGHT 12/29/2016 12/29/2016 9:20am 11:04am Anisocytosis MODERATE 12/29/2016 12/29/2016 9:20am 11:04am Prothrombin Time 16.2 SEC H 10.0-12.5 12/29/2016 12/29/2016 9:20am 10:24am Prothromb Time 1.5 H 0.8-1.4 12/29/2016 12/29/2016 International 9:20am 10:24am Ratio D-Dimer 4413 ng/mL *H 0-500 12/29/2016 12/29/2016 Results called to TYRESE Gu RN 9:20am 10:24am who read back the results. Called by Shayy Nowak at 1023 Volume Urine 10 mL 12/29/2016 12/29/2016 Centrifuged 9:22am 11:08am Urine Collection CATHETER 12/29/2016 12/29/2016 Type 9:22am 11:08am Urine Color Yellow 12/29/2016 12/29/2016 9:22am 9:48am Urine Clarity Clear 12/29/2016 12/29/2016 9:22am 9:48am Urine pH 7.0 5.0 - 8.0 12/29/2016 12/29/2016 9:22am 9:48am Urine Specific 1.020 1.005-1.030 12/29/2016 12/29/2016 [place] 9:22am 9:48am Urine Protein 1+ H Negative 12/29/2016 12/29/2016 9:22am 9:48am Urine Glucose (UA) Negative Negative 12/29/2016 12/29/2016 9:22am 9:48am Urine Blood Negative Negative 12/29/2016 12/29/2016 9:22am 9:48am Urine Ketones Negative Negative 12/29/2016 12/29/2016 9:22am 9:48am Urine Nitrite Negative Negative 12/29/2016 12/29/2016 9:22am 9:48am Urine Bilirubin Negative Negative 12/29/2016 12/29/2016 9:22am 9:48am Urine Urobilinogen 0.2 mg/dL 0.2-1.0 12/29/2016 12/29/2016 9:22am 9:48am Urine Leukocyte Negative Negative 12/29/2016 12/29/2016 Esterase 9:22am 9:48am Urine Microscopic 0-2 /HPF 12/29/2016 12/29/2016 RBC 9:22am 11:08am Urine WBC 0-2 /HPF 12/29/2016 12/29/2016 9:22am 11:08am Urine Bacteria None Seen /HPF 12/29/2016 12/29/2016 9:22am 11:08am Urine Mucus 1+ 12/29/2016 12/29/2016 9:22am 11:08am Sodium Level 138 mmol/L 135-150 12/29/2016 12/29/2016 9:20am 10:26am Potassium Level 4.8 mmol/L 3.5-5.1 12/29/2016 12/29/2016 9:20am 10:26am Chloride Level 102 mmol/L 98-108 12/29/2016 12/29/2016 9:20am 10:26am Carbon Dioxide 24 mmol/L 22-29 12/29/2016 12/29/2016 Level 9:20am 10:26am Anion Gap 17.1 MEQ/L H 3-15 12/29/2016 12/29/2016 9:20am 10:26am Blood Urea 35 mg/dL H 7-18 12/29/2016 12/29/2016 Nitrogen 9:20am 10:26am Creatinine 1.60 mg/dL H 0.8-1.5 12/29/2016 12/29/2016 9:20am 10:26am BUN/Creatinine 22 H 10-20 12/29/2016 12/29/2016 Ratio 9:20am 10:26am Estimat Glomerular 54.6 12/29/2016 12/29/2016 Filtration Rate 9:20am 10:26am Estimated GFR 45.1 12/29/2016 12/29/2016 (Non- 9:20am 10:26am [place] Glucose Level 88 mg/dL 70-110 12/29/2016 12/29/2016 9:20am 10:26am Calculated 274 mosm/L L 280-300 12/29/2016 12/29/2016 Osmolality 9:20am 10:26am Calcium Level 8.6 mg/dL L 8.8-10.8 12/29/2016 12/29/2016 9:20am 10:26am Calcium/Ionized 3.6 mg/dL L 3.8-4.6 12/29/2016 12/29/2016 Calcium Ratio 9:20am 10:26am Total Bilirubin 0.6 mg/dL 0.1-1.0 12/29/2016 12/29/2016 9:20am 10:26am Alkaline 120 U/L 38-126 12/29/2016 12/29/2016 Phosphatase 9:20am 10:26am Aspartate Amino 61 U/L H 15-37 12/29/2016 12/29/2016 Transf (AST/SGOT) 9:20am 10:26am Alanine 141 U/L H 30-65 12/29/2016 12/29/2016 Aminotransferase 9:20am 10:26am (ALT/SGPT) Total Creatine 63 U/L 55-170 12/29/2016 12/29/2016 Kinase 9:20am 10:26am Creatine Kinase MB 1.6 ng/mL 0.0-6.0 12/29/2016 12/29/2016 9:20am 10:55am Troponin I 0.478 ng/mL *H 0.010-0.080 12/29/2016 12/29/2016 Results called to TYRESE Gu RN 9:20am 10:55am who read back the results. Called by Shayy Nowak at 1054 RV-Thc-U-Type 84082 pg/mL H 0-125 12/29/2016 12/29/2016 Natriuretic 9:20am 10:55am <300 ng/mL - HF unlikely Peptide Age <50 years, NT-proBNP >450 pg/mL - HF Likely Age 50-75 yrs, NT-proBNP >900 pg/mL - HF Likely Age >75 yrs, NT-proBNP >1800 - HF likely Total Protein 7.6 g/dL 6.4-8.5 12/29/2016 12/29/2016 9:20am 10:26am Albumin 3.7 g/dL 3.4-5.0 12/29/2016 12/29/2016 9:20am 10:26am Albumin/Globulin 0.948 L 1.1-1.8 12/29/2016 12/29/2016 Ratio 9:20am 10:26am Thyroid 12.60 uIU/mL H 0.46-4.68 12/29/2016 12/29/2016 Stimulating 9:20am 10:55am Hormone (TSH) C-Reactive Protein 6.70 mg/dL H 0.0-0.9 12/29/2016 12/29/2016 9:20am 10:26am Lactic Acid Level 1.0 mmol/L 0.7-2.1 12/29/2016 12/29/2016 9:20am 10:25am Adenovirus (PCR) Negative Negative 12/29/2016 12/29/2016 9:35am 11:23am Coronavirus Type Negative Negative 12/29/2016 12/29/2016 229E (PCR) 9:35am 11:23am Coronavirus Type Negative Negative 12/29/2016 12/29/2016 HKU1 (PCR) 9:35am 11:23am Coronavirus Type Negative Negative 12/29/2016 12/29/2016 NL63 (PCR) 9:35am 11:23am Coronavirus Type Negative Negative 12/29/2016 12/29/2016 OC43 (PCR) 9:35am 11:23am Human Negative Negative 12/29/2016 12/29/2016 Metapneumovirus 9:35am 11:23am (PCR) Enterovirus/Rhinov Negative Negative 12/29/2016 12/29/2016 irus (PCR) 9:35am 11:23am Influenza Type A Negative Negative 12/29/2016 12/29/2016 (H1) (PCR) 9:35am 11:23am Influenza Virus Negative Negative 12/29/2016 12/29/2016 Type B (PCR) 9:35am 11:23am Parainfluenza Type Negative Negative 12/29/2016 12/29/2016 1 (PCR) 9:35am 11:23am Parainfluenza Type Negative Negative 12/29/2016 12/29/2016 2 (PCR) 9:35am 11:23am Parainfluenza Type Negative Negative 12/29/2016 12/29/2016 3 (PCR) 9:35am 11:23am Parainfluenza Type Negative Negative 12/29/2016 12/29/2016 4 (PCR) 9:35am 11:23am Respiratory Negative Negative 12/29/2016 12/29/2016 Syncytial Virus 9:35am 11:23am (PCR) Bordetella Negative Negative 12/29/2016 12/29/2016 parapertussis DNA 9:35am 11:23am (PCR) Chlamydophila Negative Negative 12/29/2016 12/29/2016 pneumoniae (PCR) 9:35am 11:23am Mycoplasma Negative Negative 12/29/2016 12/29/2016 pneumoniae (PCR) 9:35am 11:23am Procedures No known history of procedures. Encounters Encounter Location Arrival/Admit Date Discharge/Depart Date Attending Provider Departed [facility] 12/29/16 8:42am 12/29/16 1:35pm RICK, Emergency Room [facility] KIRSTEN Newman DO Registered Self 12/29/16 8:40am R[facility] KIRSTEN Newman DO Recent Diagnosis
[2017-07-19] MEDS ORDERED: BISACODYL 10 MG SUPPOSITORY RECTALLY PRN (20:32)
[2017-07-19] MEDS: HYDROCODONE/APAP 5mg/325mg TABLET PO PRN (20:48)
[2017-07-19] MEDS: OFLOXACIN 0.3% LEFT EYE SCH (21:00)
[2017-07-19] MEDS: EYE LEFT EYE SCH (21:00)
[2017-07-19] MEDS ORDERED: HALOPERIDOL 0.5 MG TABLET PO PRN (21:03)
[2017-07-19] MEDS ORDERED: LORazepam 0.5 MG TABLET PO PRN (21:03)
[2017-07-19] MEDS ORDERED: HALOPERIDOL 5 MG/ML INJECTION IM PRN (21:03)
[2017-07-19] MEDS: DOCUSATE SODIUM 100 MG CAPSULE PO SCH (21:30)
[2017-07-19] MEDS: GABAPENTIN 300 MG CAPSULE PO SCH (21:30)
[2017-07-20 01:20] VITALS: BMI 31.6
[2017-07-20] MEDS ORDERED: LEVOTHYROXINE 125 MCG TABLET PO SCH (06:30)
[2017-07-20] MEDS: DOCUSATE SODIUM 100 MG CAPSULE PO SCH ×2 (08:52→20:14)
[2017-07-20] MEDS: ASPIRIN *EC* 81 MG TABLET PO SCH (08:53)
[2017-07-20] MEDS: LOSARTAN 50 MG TABLET PO SCH (08:53)
[2017-07-20] MEDS: POLYETHYL GLYCOL 3350 17gm PACKET PO SCH (08:55)
[2017-07-20] MEDS: GABAPENTIN 300 MG CAPSULE PO SCH ×2 (08:55→20:14)
[2017-07-20] MEDS: OFLOXACIN 0.3% LEFT EYE SCH ×3 (08:56→20:14)
[2017-07-20] MEDS: EYE LEFT EYE SCH ×10 (08:56→20:15)
[2017-07-20] MEDS: PREDNISOLONE 1% LEFT EYE SCH ×4 (08:56→20:14)
[2017-07-20] MEDS: MULTI-VITAMIN PLAIN TABLET PO SCH (08:57)
[2017-07-20] MEDS ORDERED: ISOSORBIDE MONONITRATE ER 30 MG TABLET PO SCH (09:00)
[2017-07-20] MEDS: DICLOFENAC 0.1% LEFT EYE SCH ×3 (09:00→20:15)
[2017-07-20] MEDS: MIRABEGRON 25mg TABLET PO SCH (09:01)
[2017-07-20] MEDS: CLOPIDOGREL 75 MG TABLET PO SCH (09:01)
[2017-07-20] MEDS: FUROSEMIDE 40 MG TABLET PO SCH (09:02)
--- NOTE | 2017-07-20 09:28 | History & Physical Report ---
History of Present Illness Date: 07/20/17 Chief complaint: Increased behaviors HPI: Jhonatan is a pleasant 56 year old male with a known history of schizophrenia. He currently resides in [place], [place] at [facility]. He has resided there since December 2016. At baseline Johnatan is a very pleasant gentleman, however, it's reported by staff that recently over the past week he has had increase in strange behaviors. He has been talking with another female resident about getting in having sexual intercourse. On 07/16/17 he was found sitting on the edge of the female residents bed in the middle of the night. These behaviors were concerning and patient was sent for medical and psychiatric evaluation and treatment. He was seen in the emergency room last evening for medical clearance. CBC was normal. Chemistry panel reviewed. Sodium 140, potassium 3.9, BUN 24, creatinine 1.7 and glucose 143, otherwise unremarkable. TSH was found to be elevated at 11.5. Did contact correction facility report that patient creatinine is chronically elevated. Creatinine from April 2017 was 1.8. Urinalysis was obtained that was unremarkable. Once medically cleared. Patient was accepted to the [facility] for further psychiatric evaluation and treatment. He did undergo left cataract removal on 07/16/17 in the left eye. He has had no difficulty since that time. LLE stump was examined by nurse this morning just prior to my examination. She reports stump looks good without any skin concerns , erythema or open areas. Review of Systems Comprehensive ROS: completed and no additional positive findings except those as stated Review of systems: Jhonatan denies entire ROS during examination [facility] Patient Stated Medical History Hypertension COPD History of renal disease Sleep apnea Schizophrenia Depression History of CVA Cataracts Surgical History: Left above the knee amputation. cataract surgery- Left () Family History: Unknown - Social History Smoking status: Former smoker (quit 1 yr ago) Substance use type: does not use Alcohol intake frequency: does not drink Housing: correction Social history: Currently resides at [facility] facility Primary care provider, Dr. Mirza Stevens Medications Home Medications Medication Instructions Recorded Confirmed Type Aspirin *EC* [Ecotrin] 1 tab PO DAILY 07/19/17 07/19/17 History Atorvastatin Calcium 20 mg PO 1800 07/19/17 07/19/17 History Bisacodyl Supp [Dulcolax] 10 mg RECTALLY PRN PRN 07/19/17 07/19/17 History Cholecalciferol [Vit. D-3] 1 tab PO DAILY 07/19/17 07/19/17 History Clopidogrel Bisulfate [Clopidogrel] 75 mg PO DAILY 07/19/17 07/19/17 History Diclofenac [Voltaren] 1 drop LEFT EYE TID 07/19/17 07/19/17 History Docusate Sodium [Colace] 1 cap PO BID 07/19/17 07/19/17 History Finasteride [Proscar] 5 mg PO 1800 07/19/17 07/19/17 History Furosemide [Lasix] 1 tab PO DAILY 07/19/17 07/19/17 History Gabapentin 300 mg PO BID 07/19/17 07/19/17 History Hydrocodone/Acetaminophen 1 tab PO Q4H PRN 07/19/17 07/19/17 History [Hydrocodon-Acetaminophen 5-325] Isosorbide Mononitrate ER [Imdur] 30 mg PO DAILY 07/19/17 07/19/17 History Levothyroxine Sodium 125 mcg PO 0630 07/19/17 07/19/17 History Losartan Potassium 25 mg PO DAILY 07/19/17 07/19/17 History Mirabegron [Myrbetriq] 50 mg PO DAILY 07/19/17 07/19/17 History Multivitamin [One Daily 1 each PO DAILY 07/19/17 07/19/17 History Multivitamin] Nystatin Powder [Mycostatin] 1 applic TOP PRN PRN 07/19/17 07/19/17 History Ofloxacin [Ocuflox] 1 drop LEFT EYE TID 07/19/17 07/19/17 History Polyethylene Glycol 3350 [Miralax] 17 gm PO DAILY 07/19/17 07/19/17 History Potassium Chloride [K-Tab ER] 20 meq PO DAILY 07/19/17 07/19/17 History Sween 24 1 applic TOP DAILY 07/19/17 07/19/17 History Tamsulosin [Flomax] 0.4 mg PO 1800 07/19/17 07/19/17 History Thiamine HCl 100 mg PO DAILY 07/19/17 07/19/17 History Triple Antibiotic Ointment TOP BID 07/19/17 History prednisoLONE acetate [Prednisolone 1 drop LEFT EYE QID 07/19/17 07/19/17 History Acetate] raNITIdine HCl [Ranitidine HCl] 150 mg PO 1800 07/19/17 07/19/17 History Allergies Allergy/AdvReac Type Severity Reaction Status Date / Time No Known Allergies Allergy Verified 07/19/17 18:04 Exam Vital Signs: Temperature 98.0 F 07/20/17 08:00 Pulse Rate 104 H 07/20/17 08:00 Respiratory Rate 18 07/20/17 08:00 Blood Pressure 128/63 07/20/17 08:00 Pulse Oximetry 94 07/20/17 08:00 Height/Weight/BMI: Height 1.73 m Weight 94.3 kg Body Mass Index 31.6 - Constitutional Present: no acute distress, well nourished, well developed - Routine HEENT Exam Eye: Present: EOMI. Absent: conjunctivae pink, periorbital ecchymosis, periorbital swelling, periorbital tenderness ENT: Present: mucous membranes moist, dentition normal - Routine Neck Exam Present: full ROM - Routine Respiratory Exam Present: CTA bilaterally. Absent: wheezes - Routine Cardiovascular Exam Present: RRR, S1, S2. Absent: murmur - Routine Abdominal Exam Present: soft, normoactive bowel sounds, non distended. Absent: tenderness - Routine Extremities Exam Present: normal capillary refill Comments: LLE- stump was evaluated by nursing staff. Just prior to my examination. Nurse reports no skin conditions or concerns. No erythema, open areas or drainage. Left lower extremity prosthetic intact. - Routine Back/Spine/Pelvis Exam Back/Spine: Present: full ROM - Routine Skin Exam Present: intact, dry, warm - Routine Neurological Exam Present: alert, oriented X3, CN II-XII intact, moving all extremities - Routine Psychiatric Exam Present: normal affect, normal thought process Results - Labs CBC & Chem 7: 07/19/17 22:18 07/19/17 22:18 Assessment and Plan (1) Abnormal behavior Current visit: Yes Status: Acute Resuscitation Status: Full Code Assessment and Plan: Impression Abnormal behaviors Schizophrenia Major depressive disorder Recent cataract surgery Hypertension Hypothyroidism hyperlipidemia BPH Chronic renal disease COPD [place] Plan Agree with admission to [facility] unit under the care of Dr. Freire for further psychiatric evaluation and treatment. Recommend continuing eyedrops as ordered. Given recent cataract surgery. Did review her extensive old records. Patient does have chronic renal disease and this appears to be his baseline creatinine. Creatinine in April was 1.8. Will continue to follow. Nursing staff did report patient had difficulty voiding this morning. He does have known history of BPH. Bladder scan as needed. Continue on chronic Flomax and finasteride. Given elevation in TSH recommend increased Levothyroxine dose to 150mcg daily. This can be followed in the outpatient setting. Monitor blood pressure and continue on current regimen of Cozaar Overall patient appears to be medically stable. Recommend patient participate in unit activities. The hospitalist services will continue to follow patient medical management, stay on the [facility] unit. At time of discharge his medical care will return to primary care provider in [place], Dr. Mirza Stevens Sepsis Assessment - Evaluation Sepsis screening result: No Definite Risk Hospital Course Summary Disclaimer: The visit summary below is not to be considered part of the above Progress Note. Hospital Course: 07/20/17 - Initial admission Impression Abnormal behaviors Schizophrenia Major depressive disorder Recent cataract surgery Hypertension Hypothyroidism hyperlipidemia BPH Chronic renal disease COPD [place] Plan Agree with admission to [facility] unit under the care of Dr. Freire for further psychiatric evaluation and treatment. Recommend continuing eyedrops as ordered. Given recent cataract surgery. Did review her extensive old records. Patient does have chronic renal disease and this appears to be his baseline creatinine. Creatinine in April was 1.8. Will continue to follow. Nursing staff did report patient had difficulty voiding this morning. He does have known history of BPH. Bladder scan as needed. Continue on chronic Flomax and finasteride. Given elevation in TSH recommend increased Levothyroxine dose to 150mcg daily. This can be followed in the outpatient setting. Monitor blood pressure and continue on current regimen of Cozaar Overall patient appears to be medically stable. Recommend patient participate in unit activities. The hospitalist services will continue to follow patient medical management, stay on the [facility] unit. At time of discharge his medical care will return to primary care provider in [place], Dr. Mirza Stevens
[2017-07-20] MEDS ORDERED: INHALER ASSIST DEVICE (Optichamber) MC ONE (09:59)
[2017-07-20] MEDS: [UNRECOGNIZED DRUG - OTHER] TOP SCH (10:12)
[2017-07-20] MEDS: VITAMINS A TOP SCH (10:12)
--- NOTE | 2017-07-20 11:52 | 24 Hour Neuropsychiatic Eval ---
Date of Admission: 07/19/17 18:50 Chief complaint: "My thyroid is bad" History of Present Illness: HPI: 56 Y/O CM sent from [facility] for increasing bizarre behavior. PT reportedly had been talking to a female peer about getting and having intercourse. Staff reportedly the pt was seen in the middle of the night sitting on this residents bed. On face to face the pt states he is doing well. He states he does not remember being in a peers room and had no intention of harming anyone. He voices no concerns at this time. STRESSORS: Pt states staff at the senior living are accusing him of "touching" a peer which is stressful. PSYCH ROS: Pt states his mood is stable. He denies feeling depressed. He reports sleeping well and having a good appetite. He denies jonathan or psychosis. PT scored a 15 on the SLUMS. PAST PSYCH: Pt states he has never seen a psychiatrist and has never tried to harm himself. He carries a dx of Schizophrenia and MDD. [facility] Patient Stated Medical History Cerebrovascular Accident Yes Cataracts Yes Hypertension Yes Chronic Obstructive Pulmonary Yes Disease (COPD) Sleep Apnea Yes Other Respiratory Yes: HX ARDS Hx Renal Disease Yes Depression Yes Schizophrenia Yes Surgical History: Left above the knee amputation. cataract surgery- Left () - Social History Smoking status: Former smoker (quit 1 yr ago) Review of Systems - Musculoskeletal Musculoskeletal: Present: abnormal gait - Neurological Neurological: Present: abnormal gait - Psychiatric Psychiatric: Present: behavioral changes Mental Status Exam Vitals: Last Vital Signs Temp 98.0 F 07/20/17 08:00 Pulse 104 H 07/20/17 08:00 Resp 18 07/20/17 09:36 BP 128/63 07/20/17 08:00 Pulse Ox 94 07/20/17 08:00 Height: 1.73 m Weight: 94.3 kg - Mental Status Exam Muscle Strength/Tone: Normal Dressing: Casual Grooming: Good Attitude: Cooperative Motor Activity: Retardation Eye Contact: Fair Speech: Slowed Volume: Soft Rhythm: Dysarthric Orientation: Oriented to person, Oriented to place Mood: Neutral Affect: Relaxed Rate of Thoughts: Delayed Thought Organization: [place] Associations: Intact Abstract Reasoning: Poor abstract reasoning Thought Content: Normal Perception/Psychotic: Perception Normal Language: Naming Impaired Fund of Knowledge: Poor fund of knowledge Memory: Poor-immediate Suicidal Ideation: None Homicidal Ideation: None Insight: Poor Judgement: Poor Impulse Control: Poor - Laboratory Result Diagrams: 07/19/17 22:18 07/19/17 22:18 Laboratory Results - last 24 hr 07/19/17 07/19/17 07/20/17 22:18 22:18 03:21 WBC 8.0 RBC 4.58 Hgb 14.6 Hct 44.1 MCV 96.3 MCH 31.9 MCHC 33.1 RDW Std Deviation 49.6 Plt Count 132 MPV 10.4 Immature Gran % (Auto) 0.4 Neut % (Auto) 63.8 Lymph % (Auto) 24.7 [place] % (Auto) 8.0 Eos % (Auto) 2.6 Baso % (Auto) 0.5 Neut # 5.1 Lymph # 2.0 [place] # 0.6 Eos # 0.2 Baso # 0.0 Abs Immat Gran (auto) 0.03 Turbidity < 20 Sodium 140 Potassium 3.7 Chloride 102 Carbon Dioxide 26 Anion Gap 12 BUN 24.0 H Creatinine 1.7 H GFR Calculation 42 BUN/Creatinine Ratio 14 Glucose 143 H Calculated Osmolality 275 Calcium 9.0 Total Bilirubin 0.60 Icterus Index < 2 AST 28 ALT 46 Alkaline Phosphatase 99 Total Protein 7.3 Albumin 4.3 Globulin 3.0 Albumin/Globulin Ratio 1.4 Prealbumin 33.2 TSH 11.50 H Specimen Hemolysis < 15 Ur Collection Type Urine, clean catch Urine Color Yellow Urine Clarity Clear Urine pH 6.[address] [place] 1.015 Urine Protein Negative Urine Glucose (UA) Negative Urine Ketones Negative Urine Occult Blood Negative Urine Nitrate Negative Urine Bilirubin Negative Urine Urobilinogen 0.2 Ur Leukocyte Esterase Negative Urinalysis Comment Microscopic not ind. Assessment and Plan (1) Major neurocognitive disorder Problem details: with behavioral disturbance Current visit: Yes Status: Acute Continue to evaluate and stabilize. Will restart Abilify 5mg daily. Collateral from family
[2017-07-20] MEDS: HYDROCODONE/APAP 5mg/325mg TABLET PO PRN ×2 (12:39→17:00)
[2017-07-20] MEDS: FINASTERIDE 5 MG TABLET PO SCH (17:00)
[2017-07-20] MEDS: RANITIDINE 150 MG TABLET PO SCH (17:00)
[2017-07-20] MEDS: ATORVASTATIN 20 MG TABLET PO SCH (17:00)
[2017-07-20] MEDS: TAMSULOSIN 0.4 MG CAPSULE PO SCH (17:00)
[2017-07-21] MEDS: ISOSORBIDE MONONITRATE ER 30 MG TABLET PO SCH (06:12)
[2017-07-21] MEDS: LEVOTHYROXINE 150 MCG TABLET PO SCH (06:13)
[2017-07-21] MEDS: VITAMINS A TOP SCH (08:14)
[2017-07-21] MEDS: [UNRECOGNIZED DRUG - OTHER] TOP SCH (08:14)
[2017-07-21] MEDS: MIRABEGRON 25mg TABLET PO SCH (08:23)
[2017-07-21] MEDS: ARIPiprazole 5 MG TABLET PO SCH (08:23)
[2017-07-21] MEDS: ASPIRIN *EC* 81 MG TABLET PO SCH (08:23)
[2017-07-21] MEDS: GABAPENTIN 300 MG CAPSULE PO SCH ×2 (08:23→20:12)
[2017-07-21] MEDS: FUROSEMIDE 40 MG TABLET PO SCH (08:23)
[2017-07-21] MEDS: CLOPIDOGREL 75 MG TABLET PO SCH (08:23)
[2017-07-21] MEDS: DOCUSATE SODIUM 100 MG CAPSULE PO SCH ×2 (08:23→20:13)
[2017-07-21] MEDS: MULTI-VITAMIN PLAIN TABLET PO SCH (08:23)
[2017-07-21] MEDS: LOSARTAN 50 MG TABLET PO SCH (08:24)
[2017-07-21] MEDS: EYE LEFT EYE SCH ×10 (08:25→20:16)
[2017-07-21] MEDS: PREDNISOLONE 1% LEFT EYE SCH ×4 (08:25→20:13)
[2017-07-21] MEDS: POLYETHYL GLYCOL 3350 17gm PACKET PO SCH (08:25)
[2017-07-21] MEDS: OFLOXACIN 0.3% LEFT EYE SCH ×3 (08:26→20:16)
[2017-07-21] MEDS: DICLOFENAC 0.1% LEFT EYE SCH ×3 (08:27→20:15)
--- NOTE | 2017-07-21 10:34 | Neuropsych Progress Note ---
[facility] Subjective Date: 07/21/17 - Sujective/Severity of Illness Medications: Acetaminophen/Hydrocodone Bitart ([place] 5/325) 1 tab PO Q4H PRN PRN Reason: Pain Last Admin: 07/20/17 17:00 Dose: 1 tab Aripiprazole (Abilify) 5 mg PO DAILY [facility] Last Admin: 07/21/17 08:23 Dose: 5 mg Aspirin (Ecotrin) 81 mg PO DAILY [facility] Last Admin: 07/21/17 08:23 Dose: 81 mg Atorvastatin Calcium (Lipitor) 20 mg PO 1800 [facility] Last Admin: 07/20/17 17:00 Dose: 20 mg Bisacodyl (Dulcolax) 10 mg RECTALLY PRN PRN PRN Reason: Constipation Budesonide/Formoterol Fumarate (Symbicort Inhaler) 2 puff ORAL INH RTBID [facility] Last Admin: 07/21/17 06:44 Dose: 2 puff Cholecalciferol (Vit. D-3) 1,000 unit PO DAILY [facility] Last Admin: 07/21/17 08:23 Dose: 1,000 unit Clopidogrel Bisulfate (Plavix) 75 mg PO DAILY [facility] Last Admin: 07/21/17 08:23 Dose: 75 mg Diclofenac Sodium (Voltaren) 1 drop LEFT EYE TID [facility] Stop: 07/31/17 21:00 Last Admin: 07/21/17 08:27 Dose: 1 drop Docusate Sodium (Colace) 100 mg PO BID [facility] Last Admin: 07/21/17 08:23 Dose: 100 mg Finasteride (Proscar) 5 mg PO 1800 [facility] Last Admin: 07/20/17 17:00 Dose: 5 mg Furosemide (Lasix) 40 mg PO DAILY [facility] Last Admin: 07/21/17 08:23 Dose: 40 mg Gabapentin (Neurontin) 300 mg PO BID [facility] Last Admin: 07/21/17 08:23 Dose: 300 mg Haloperidol (Haldol) 0.5 mg PO Q6H PRN PRN Reason: Extreme agitation Haloperidol Lactate (Haldol) 0.5 mg IM Q6H PRN PRN Reason: Extreme agitation Isosorbide Mononitrate (Imdur) 30 mg PO ACB [facility] Last Admin: 07/21/17 06:12 Dose: 30 mg Levothyroxine Sodium (Synthroid) 150 mcg PO ACB [facility] Last Admin: 07/21/17 06:13 Dose: 150 mcg Lorazepam (Ativan) 0.5 mg PO Q6H PRN PRN Reason: Extreme agitation Lorazepam (Ativan Inj) 0.5 mg IM Q6H PRN PRN Reason: Extreme agitation Losartan Potassium (Cozaar) 25 mg PO DAILY [facility] Last Admin: 07/21/17 08:24 Dose: 25 mg Mirabegron (Myrbetriq) 50 mg PO DAILY [facility] Last Admin: 07/21/17 08:23 Dose: 50 mg Multivitamins (Theragran) 1 tab PO DAILY [facility] Last Admin: 07/21/17 08:23 Dose: 1 tab Nystatin (Mycostatin) 1 applic TP PRN PRN PRN Reason: Rash Ofloxacin (Ocuflox) 1 drop LEFT EYE TID [facility] Last Admin: 07/21/17 08:26 Dose: 1 drop Polyethylene Glycol (Miralax) 17 gm PO DAILY [facility] Last Admin: 07/21/17 08:25 Dose: 17 gm Potassium Chloride (K-Dur) 20 meq PO WB [facility] Last Admin: 07/21/17 08:23 Dose: 20 meq Prednisolone Acetate (Pred Forte) 1 drop LEFT EYE QID [facility] Stop: 07/30/17 21:00 Last Admin: 07/21/17 08:25 Dose: 1 drop Ranitidine HCl (Zantac) 150 mg PO 1800 [facility] Last Admin: 07/20/17 17:00 Dose: 150 mg Tamsulosin HCl (Flomax) 0.4 mg PO 1800 [facility] Last Admin: 07/20/17 17:00 Dose: 0.4 mg Thiamine HCl (Vitamin B-1) 100 mg PO DAILY [facility] Last Admin: 07/21/17 08:23 Dose: 100 mg Vitamin A/Vitamin D (Sween Cream) 1 applic TOP DAILY [facility] Last Admin: 07/21/17 08:14 Dose: 1 applic Subjective: Pt seen and chart examined. Nursing reports pt is doing well. Sleeping well and has a good appetite. no behaviors noted. On face to face the pt states he is doing well. mood is stable. Denies any S/I or psychosis. Tolerating meds Start Time: 10:00 Stop Time: 10:15 Mental Status Exam Vitals: Last Vital Signs Temp 97.6 F 07/21/17 08:57 Pulse 100 07/21/17 08:57 Resp 18 07/21/17 08:57 BP 129/66 07/21/17 08:57 Pulse Ox 93 07/21/17 08:57 Height: 1.73 m Weight: 94.3 kg - Mental Status Exam Muscle Strength/Tone: Normal Dressing: Casual Grooming: Good Attitude: Cooperative Motor Activity: Retardation Eye Contact: Fair Speech: Slowed Volume: Soft Rhythm: Dysarthric Orientation: Oriented to person, Oriented to place Mood: Neutral Rate of Thoughts: Delayed Thought Organization: [place] Associations: Intact Abstract Reasoning: Poor abstract reasoning Thought Content: Normal Perception/Psychotic: Perception Normal Language: Naming Impaired Fund of Knowledge: Poor fund of knowledge Memory: Poor-immediate Suicidal Ideation: None Homicidal Ideation: None Insight: Poor Judgement: Poor Impulse Control: Poor - Laboratory Result Diagrams: 07/19/17 22:18 07/19/17 22:18 Laboratory Results - last 24 hr 07/19/17 07/21/17 22:18 07:07 Hemoglobin A1c 5.3 L RPR Non-reactive Assessment and Plan (1) Major neurocognitive disorder Problem details: with behavioral disturbance Current visit: Yes Status: Acute Hospital Course Summary Disclaimer: The visit summary below is not to be considered part of the above Progress Note. Hospital Course: 07/20/17 - Initial admission Impression Abnormal behaviors Schizophrenia Major depressive disorder Recent cataract surgery Hypertension Hypothyroidism hyperlipidemia BPH Chronic renal disease COPD [place] Plan Agree with admission to [facility] under the care of Dr. Freire for further psychiatric evaluation and treatment. Recommend continuing eyedrops as ordered. Given recent cataract surgery. Did review her extensive old records. Patient does have chronic renal disease and this appears to be his baseline creatinine. Creatinine in April was 1.8. Will continue to follow. Nursing staff did report patient had difficulty voiding this morning. He does have known history of BPH. Bladder scan as needed. Continue on chronic Flomax and finasteride. Given elevation in TSH recommend increased Levothyroxine dose to 150mcg daily. This can be followed in the outpatient setting. Monitor blood pressure and continue on current regimen of Cozaar Overall patient appears to be medically stable. Recommend patient participate in unit activities. The hospitalist services will continue to follow patient medical management, stay on the [facility] unit. At time of discharge his medical care will return to primary care provider in [place], [place], Dr. Mirza Stevens 07/21/17 10:34 Pt doing well. Continue current care
[2017-07-21] MEDS ORDERED: ALBUTEROL 2.5mg/3ml (0.083%) NEB AEROSOL PRN (15:38)
--- NOTE | 2017-07-21 15:48 | Progress Note ---
<Alena Lucio - Last Filed: 07/21/17 15:44> Subjective: Mirza is seen today in follow up visit. He is up in the common area with his parents working a puzzle. RN reports that he is requesting a breathing treatment. Mirza tells me immediately "I can't breath!" He denies any chest pain or SOA. His eyes are tearing. He is not overly SOA on visible exam. He denies fever or chills. His mother reports that he does not appear ill over the last several days. Reports that we need to "be sure he doesn't have fluid around his heart." Neither pt nor his parents were not able to give me a reliable history. I have reviewed the records sent from the [facility]. There is a history of cardiomyopathy, but no formal HF diagnosis. He is on Lasix and Losartan- BNP on Jun 21 was 1071. He is not on a beta-clarita. EKG is abnormal with widened complex on admission- I am unclear if this is acute of chronic. He is not on breathing tx. at the [facility] that I can find. Unfortunately, the records sent were minimal, so unclear on past cardiac history. Objective Vital signs: Temperature 97.6 F 07/21/17 08:57 Pulse Rate 100 07/21/17 08:57 Respiratory Rate 18 07/21/17 08:57 Blood Pressure 129/66 07/21/17 08:57 Pulse Oximetry 93 07/21/17 08:57 Height/Weight/BMI: Height 1.73 m Weight 94.3 kg Body Mass Index 31.6 Comments: Abnormal EKG with wide QRS. - Constitutional Present: moderate distress, well nourished, well developed, cooperative - Routine HEENT Exam Head: Present: normocephalic, atraumatic Eye: Present: EOMI, PERRL, normal accommodation (Tearing bilateral eyes (recent cataract surgery)) ENT: Present: mucous membranes moist - Routine Respiratory Exam Present: dyspnea (Mild-mod SOA at rest.), wheezes, crackles (Scattered wheezes and crackles throughout. ) - Routine Cardiovascular Exam Present: RRR, S1, S2, no murmur - Routine Abdominal Exam Present: soft, non distended, non tender - Routine Extremities Exam Present: no edema, non tender, amputation (Left leg.) - Routine Musculoskeletal Exam Musculoskeletal: Present: no tenderness, no erythema, moving extremities well - Routine Skin Exam Present: intact, dry, warm - Routine Neurological Exam Present: alert, moving all extremities - Routine Psychiatric Exam Present: cooperative. Absent: good insight, good judgment Results - Labs CBC & Chem 7: 07/19/17 22:18 07/19/17 22:18 Assessment and Plan (1) Abnormal behavior Current visit: Yes Status: Acute DVT Prophylaxis: SCD's Resuscitation Status: Full Code Assessment and Plan: Impression Abnormal behaviors Schizophrenia Major depressive disorder Recent cataract surgery Hypertension Hypothyroidism hyperlipidemia BPH Chronic renal disease (baseline 1.8) COPD SABAS PVD Fluid overload, Cardiomyopathy, Likely HF. Left BKA amputation Acute respiratory distress. Plan 07/21/17 Patient appears in acute fluid overload. Obtain stat CXR, EKG, and BNP now. Give metolazone, KCL x 1 now to diurese. Other differential could be an acute viral illness- May need to add steroids if does not appear to be fluid. Add nebulizer tx. Continue Symbicort. CKD, Baseline 1.7- continue current meds. Monitor on Losartan and KCL. Continue Lasix. Order Echo for Saturday AM. Synthroid was increased due to TSH of 11. It was noted to be 24.54 on 06/21/17. Plan to recheck in 4 weeks for stability with increase in Synthroid dosing. Repeat labs in AM. - Time spent with patient 25 - 35 minutes Sepsis Assessment - Evaluation Sepsis screening result: No Definite Risk Hospital Course Summary Disclaimer: The visit summary below is not to be considered part of the above Progress Note. Hospital Course: 07/20/17 - Initial admission Impression Abnormal behaviors Schizophrenia Major depressive disorder Recent cataract surgery Hypertension Hypothyroidism hyperlipidemia BPH Chronic renal disease COPD SABAS PVD Plan Agree with admission to [facility] under the care of Dr. Freire for further psychiatric evaluation and treatment. Recommend continuing eyedrops as ordered. Given recent cataract surgery. Did review her extensive old records. Patient does have chronic renal disease and this appears to be his baseline creatinine. Creatinine in April was 1.8. Will continue to follow. Nursing staff did report patient had difficulty voiding this morning. He does have known history of BPH. Bladder scan as needed. Continue on chronic Flomax and finasteride. Given elevation in TSH recommend increased Levothyroxine dose to 150mcg daily. This can be followed in the outpatient setting. Monitor blood pressure and continue on current regimen of Cozaar Overall patient appears to be medically stable. Recommend patient participate in unit activities. The hospitalist services will continue to follow patient medical management, stay on the [facility]. At time of discharge his medical care will return to primary care provider in [place], [place], Dr. Mirza Stevens 07/21/17 10:34 Pt doing well. Continue current care 07/21/17 15:57 Patient appears in acute fluid overload. Obtain stat CXR, EKG, and BNP now. Give metolazone, KCL x 1 now to kaee. Other differential could be an acute viral illness- May need to add steroids if does not appear to be fluid. Add nebulizer tx. Continue Symbicort. CKD, Baseline 1.7- continue current meds. Monitor on Losartan and KCL. Continue Lasix. Order Echo for Saturday AM. Synthroid was increased due to TSH of 11. It was noted to be 24.54 on 06/21/17. Plan to recheck in 4 weeks for stability with increase in Synthroid dosing. Repeat labs in AM. <Julia Gomez - Last Filed: 07/21/17 17:23> Objective Vital signs: Temperature 97.8 F 07/21/17 16:00 Pulse Rate 80 07/21/17 16:00 Respiratory Rate 16 07/21/17 16:10 Blood Pressure 142/56 H 07/21/17 16:00 Pulse Oximetry 97 07/21/17 16:10 Height/Weight/BMI: Height 1.73 m Weight 94.3 kg Body Mass Index 31.6 Results - Labs CBC & Chem 7: 07/19/17 22:18 07/21/17 16:11 Assessment and Plan (1) Abnormal behavior Current visit: Yes Status: Acute Assessment and Plan: 07/21/2017-I reviewed this chart, the patient history, and the BIOLOGICAL PLANT OPERATOR's/PA's documented findings as above. We discussed and formulated the assessment and plan as above with the additions below.-Dr. Gomez The patient is seen at approximately 5 PM. He states he felt "weird" and "short of breath" this afternoon but those symptoms are gone now. He denies having any pain associated with the shortness of breath. He denies any chest pain. He states he is feeling okay now. He did get a breathing treatment and was given a dose of Zaroxolyn. Lab today shows a BNP of 950 which is decreased. BUN and creatinine are stable. Chest x-ray on my read looks fairly clear. There may be some mild pulmonary vascular congestion. Right base is not well seen on this chest x-ray. EKG on admission shows sinus rhythm with occasional PVCs. Possible left atrial enlargement. Markedly left axis deviation. And left bundle branch block. EKG today shows markedly left axis deviation. Right bundle branch block. Septal myocardial infarction, probably old. In market T-wave abnormality, consider lateral ischemia. On exam, the patient is in no acute distress. Neck is supple without JVD. Chest reveals some scattered expiratory wheezes. Cardiovascular reveals a regular rate and rhythm without murmur. Abdomen is soft and nontender. Extremities reveal a left [id number] amputation. Right lower extremity is free of edema. Skin is warm and dry and without rashes. Impression Dyspnea of uncertain etiology-resolved after breathing treatment and Zaroxolyn 1 Cardiomyopathy-notes in the chart showed the family has stated he has "one third " of his heart History of stroke COPD Hypertension EKG with with changes since admission, possible lateral ischemia but no chest discomfort Probable history of underlying coronary artery disease Chronic kidney disease is stable with creatinine of 1.6 today. Plan We'll check a troponin now and every 6 hours 2. The patient is already on aspirin, Plavix, Lipitor, isosorbide, and losartan. He is on daily Lasix. He received a one-time dose Zaroxolyn today. May need cardiology consultation. Await troponin. Recheck basic metabolic profile in the morning. Hospital Course Summary Disclaimer: The visit summary below is not to be considered part of the above Progress Note.
[2017-07-21] MEDS: RANITIDINE 150 MG TABLET PO SCH (18:08)
[2017-07-21] MEDS: ATORVASTATIN 20 MG TABLET PO SCH (18:08)
[2017-07-21] MEDS: TAMSULOSIN 0.4 MG CAPSULE PO SCH (18:08)
[2017-07-21] MEDS: FINASTERIDE 5 MG TABLET PO SCH (18:08)
[2017-07-21] MEDS: HYDROCODONE/APAP 5mg/325mg TABLET PO PRN (18:12)
[2017-07-22] MEDS: ISOSORBIDE MONONITRATE ER 30 MG TABLET PO SCH (07:03)
[2017-07-22] MEDS: LEVOTHYROXINE 150 MCG TABLET PO SCH (07:03)
[2017-07-22] MEDS: FUROSEMIDE 40 MG TABLET PO SCH (08:54)
[2017-07-22] MEDS: GABAPENTIN 300 MG CAPSULE PO SCH ×2 (08:54→20:39)
[2017-07-22] MEDS: ARIPiprazole 5 MG TABLET PO SCH (08:55)
[2017-07-22] MEDS: MIRABEGRON 25mg TABLET PO SCH (08:55)
[2017-07-22] MEDS: CLOPIDOGREL 75 MG TABLET PO SCH (08:55)
[2017-07-22] MEDS: ASPIRIN *EC* 81 MG TABLET PO SCH (08:55)
[2017-07-22] MEDS: MULTI-VITAMIN PLAIN TABLET PO SCH (08:55)
[2017-07-22] MEDS: DOCUSATE SODIUM 100 MG CAPSULE PO SCH ×2 (08:55→20:39)
[2017-07-22] MEDS: POLYETHYL GLYCOL 3350 17gm PACKET PO SCH (08:57)
--- NOTE | 2017-07-22 08:57 | Progress Note ---
<Jia Romero V - Last Filed: 07/22/17 08:43> Subjective: Jhonatan is seen this morning in follow up while in bed. He is initially sleeping with C-pap on however he easily awakens and removes it. He states that he is no longer feeling short of breath and he is "much better" today. Denies having chest pain, dizziness, shortness of breath or other pain. Room air sats 93-94%. Vitals otherwise normal. Stump without erythema or skin concerns. Objective Vital signs: Temperature 97.9 F 07/21/17 19:30 Pulse Rate 89 07/21/17 19:30 Respiratory Rate 16 07/21/17 19:46 Blood Pressure 135/67 07/21/17 19:30 Pulse Oximetry 94 07/21/17 19:30 Height/Weight/BMI: Height 1.73 m Weight 94.3 kg Body Mass Index 31.6 - Constitutional Present: no acute distress, well nourished, well developed - Routine HEENT Exam Eye: Present: EOMI ENT: Present: mucous membranes moist, dentition normal - Routine Respiratory Exam Present: CTA bilaterally. Absent: wheezes - Routine Cardiovascular Exam Present: RRR, S1, S2. Absent: murmur - Routine Abdominal Exam Present: soft, normoactive bowel sounds, non distended. Absent: tenderness - Routine Extremities Exam Present: normal capillary refill - Routine Back/Spine/Pelvis Exam Back/Spine: Present: full ROM - Routine Skin Exam Present: intact, dry, warm Comments: Stump without any breakdown or concerns - Routine Neurological Exam Present: alert, oriented X3, CN II-XII intact, moving all extremities - Routine Lymphatic Exam Lymphatic: Absent: adenopathy - Routine Psychiatric Exam Present: normal affect Results - Labs CBC & Chem 7: 07/22/17 04:34 07/22/17 04:34 Assessment and Plan (1) Abnormal behavior Current visit: Yes Status: Acute Assessment and Plan: 07/22/17 Impression Dyspnea of uncertain etiology-resolved after breathing treatment and Zaroxolyn 1 Cardiomyopathy-notes in the chart showed the family has stated he has "one third " of his heart History of stroke COPD Hypertension EKG with with changes since admission, possible lateral ischemia but no chest discomfort Probable history of underlying coronary artery disease Chronic kidney disease is stable (baseline Blow Molder 1.6-1.8) Plan Serial troponins yesterday remained negative. Jhonatan has no complaints of chest pain or shortness of breath today He continues on chronic meds including- Aspirin, Plavix, Lipitor, isosorbide, and losartan. Continue on daily Lasix. Will ask nursing staff to weight patient daily without prosthetic leg for weight consistency CKD- Blow Molder is at baseline. Continue to follow closely Will discuss further with attending, Dr Gomez Sepsis Assessment - Evaluation Sepsis screening result: No Definite Risk Hospital Course Summary Disclaimer: The visit summary below is not to be considered part of the above Progress Note. Hospital Course: 07/20/17 - Initial admission Impression Abnormal behaviors Schizophrenia Major depressive disorder Recent cataract surgery Hypertension Hypothyroidism hyperlipidemia BPH Chronic renal disease COPD SABAS PVD Plan Agree with admission to [facility] under the care of Dr. Freire for further psychiatric evaluation and treatment. Recommend continuing eyedrops as ordered. Given recent cataract surgery. Did review her extensive old records. Patient does have chronic renal disease and this appears to be his baseline creatinine. Creatinine in April was 1.8. Will continue to follow. Nursing staff did report patient had difficulty voiding this morning. He does have known history of BPH. Bladder scan as needed. Continue on chronic Flomax and finasteride. Given elevation in TSH recommend increased Levothyroxine dose to 150mcg daily. This can be followed in the outpatient setting. Monitor blood pressure and continue on current regimen of Cozaar Overall patient appears to be medically stable. Recommend patient participate in unit activities. The hospitalist services will continue to follow patient medical management, stay on the [facility]. At time of discharge his medical care will return to primary care provider in [place], [place], Dr. Mirza Stevens 07/21/17 10:34 Pt doing well. Continue current care 07/21/17 15:57 Patient appears in acute fluid overload. Obtain stat CXR, EKG, and BNP now. Give metolazone, KCL x 1 now to shobha. Other differential could be an acute viral illness- May need to add steroids if does not appear to be fluid. Add nebulizer tx. Continue Symbicort. CKD, Baseline 1.7- continue current meds. Monitor on Losartan and KCL. Continue Lasix. Order Echo for Saturday AM. Synthroid was increased due to TSH of 11. It was noted to be 24.54 on 06/21/17. Plan to recheck in 4 weeks for stability with increase in Synthroid dosing. Repeat labs in AM. 07/22/17 Plan Serial troponins yesterday remained negative. Jhonatan has no complaints of chest pain or shortness of breath today He continues on chronic meds including- Aspirin, Plavix, Lipitor, isosorbide, and losartan. Continue on daily Lasix. Will ask nursing staff to weight patient daily without prosthetic leg for weight consistency CKD- Blow Molder is at baseline. Continue to follow closely Will discuss further with attending, Dr Gomez <Julia Gomez - Last Filed: 07/22/17 15:21> Objective Vital signs: Temperature 97.4 F 07/22/17 08:00 Pulse Rate 89 07/22/17 08:00 Respiratory Rate 18 07/22/17 09:47 Blood Pressure 135/65 07/22/17 08:00 Pulse Oximetry 93 07/22/17 08:00 Height/Weight/BMI: Height 1.73 m Weight 94.3 kg Body Mass Index 31.6 Results - Labs CBC & Chem 7: 07/22/17 04:34 07/22/17 04:34 Assessment and Plan (1) Abnormal behavior Current visit: Yes Status: Acute Assessment and Plan: 07/22/2017-I reviewed this chart, the patient history, and the FOREIGN CLERK's/PA's documented findings as above. We discussed and formulated the assessment and plan as above with the additions below.-Dr. Gomez Patient states that he's feeling fine today. He states that he hasn't had any shortness of breath since the episode yesterday that resolved after her breathing treatment and a one-time dose of Zaroxolyn. He never had any chest pain. He states he slept fine with his usual CPAP last night. He denies any problems with dysphagia and denies any choking or coughing after he eats or drinks. He states he was not aware that he had any kidney problems until today. On exam he is alert and in no acute distress. He has mild slurred speech which is chronic. Chest reveals some mild coarse breath sounds. Cardiovascular reveals a regular rate and rhythm. Abdomen is soft, obese and nontender with positive bowel sounds. Right lower extremity is free of edema. He has a AMBER hose on. He has a left [id number] amputation. Continue with current medications. The patient was encouraged to let his nurses know if he should feel poorly in any way and especially if he has shortness of breath or chest discomfort. Dr. Stahl's nurse practitioner was notified of consult today regarding probable cardiomyopathy and changes on EKG. Troponins were negative 3. We'll likely get an echocardiogram tomorrow. Hospital Course Summary Disclaimer: The visit summary below is not to be considered part of the above Progress Note.
[2017-07-22] MEDS: OFLOXACIN 0.3% LEFT EYE SCH ×3 (09:00→20:39)
[2017-07-22] MEDS: [UNRECOGNIZED DRUG - OTHER] TOP SCH ×2 (09:00→22:15)
[2017-07-22] MEDS: EYE LEFT EYE SCH ×10 (09:00→20:41)
[2017-07-22] MEDS: PREDNISOLONE 1% LEFT EYE SCH ×4 (09:00→20:40)
[2017-07-22] MEDS: VITAMINS A TOP SCH ×2 (09:00→22:15)
[2017-07-22] MEDS: DICLOFENAC 0.1% LEFT EYE SCH ×3 (09:01→20:41)
[2017-07-22] MEDS: LOSARTAN 50 MG TABLET PO SCH (09:17)
--- NOTE | 2017-07-22 10:20 | Neuropsych Progress Note ---
[facility] Subjective Date: 07/22/17 - Sujective/Severity of Illness Medications: Acetaminophen/Hydrocodone Bitart (Birney 5/325) 1 tab PO Q4H PRN PRN Reason: Pain Last Admin: 07/21/17 18:12 Dose: 1 tab Albuterol Sulfate (Proventil Neb (0.083%)) 2.5 mg AEROSOL Q4H PRN PRN Reason: Shortness of air Last Admin: 07/21/17 16:10 Dose: 2.5 mg Aripiprazole (Abilify) 5 mg PO DAILY [facility] Last Admin: 07/22/17 08:55 Dose: 5 mg Aspirin (Ecotrin) 81 mg PO DAILY [facility] Last Admin: 07/22/17 08:55 Dose: 81 mg Atorvastatin Calcium (Lipitor) 20 mg PO 1800 [facility] Last Admin: 07/21/17 18:08 Dose: 20 mg Bisacodyl (Dulcolax) 10 mg RECTALLY PRN PRN PRN Reason: Constipation Budesonide/Formoterol Fumarate (Symbicort Inhaler) 2 puff ORAL INH RTBID [facility] Last Admin: 07/22/17 09:49 Dose: 2 puff Cholecalciferol (Vit. D-3) 1,000 unit PO DAILY [facility] Last Admin: 07/22/17 08:55 Dose: 1,000 unit Clopidogrel Bisulfate (Plavix) 75 mg PO DAILY [facility] Last Admin: 07/22/17 08:55 Dose: 75 mg Diclofenac Sodium (Voltaren) 1 drop LEFT EYE TID [facility] Stop: 07/31/17 21:00 Last Admin: 07/22/17 09:01 Dose: 1 drop Docusate Sodium (Colace) 100 mg PO BID [facility] Last Admin: 07/22/17 08:55 Dose: 100 mg Finasteride (Proscar) 5 mg PO 1800 [facility] Last Admin: 07/21/17 18:08 Dose: 5 mg Furosemide (Lasix) 40 mg PO DAILY [facility] Last Admin: 07/22/17 08:54 Dose: 40 mg Gabapentin (Neurontin) 300 mg PO BID [facility] Last Admin: 07/22/17 08:54 Dose: 300 mg Haloperidol (Haldol) 0.5 mg PO Q6H PRN PRN Reason: Extreme agitation Haloperidol Lactate (Haldol) 0.5 mg IM Q6H PRN PRN Reason: Extreme agitation Isosorbide Mononitrate (Imdur) 30 mg PO ACB [facility] Last Admin: 07/22/17 07:03 Dose: 30 mg Levothyroxine Sodium (Synthroid) 150 mcg PO ACB [facility] Last Admin: 07/22/17 07:03 Dose: 150 mcg Lorazepam (Ativan) 0.5 mg PO Q6H PRN PRN Reason: Extreme agitation Lorazepam (Ativan Inj) 0.5 mg IM Q6H PRN PRN Reason: Extreme agitation Losartan Potassium (Cozaar) 25 mg PO DAILY [facility] Last Admin: 07/22/17 09:17 Dose: 25 mg Mirabegron (Myrbetriq) 50 mg PO DAILY [facility] Last Admin: 07/22/17 08:55 Dose: 50 mg Multivitamins (Theragran) 1 tab PO DAILY [facility] Last Admin: 07/22/17 08:55 Dose: 1 tab Nystatin (Mycostatin) 1 applic TP PRN PRN PRN Reason: Rash Ofloxacin (Ocuflox) 1 drop LEFT EYE TID [facility] Last Admin: 07/22/17 09:00 Dose: 1 drop Polyethylene Glycol (Miralax) 17 gm PO DAILY [facility] Last Admin: 07/22/17 08:57 Dose: 17 gm Potassium Chloride (K-Dur) 20 meq PO WB [facility] Last Admin: 07/22/17 08:54 Dose: 20 meq Prednisolone Acetate (Pred Forte) 1 drop LEFT EYE QID [facility] Stop: 07/30/17 21:00 Last Admin: 07/22/17 09:00 Dose: 1 drop Ranitidine HCl (Zantac) 150 mg PO 1800 [facility] Last Admin: 07/21/17 18:08 Dose: 150 mg Tamsulosin HCl (Flomax) 0.4 mg PO 1800 [facility] Last Admin: 07/21/17 18:08 Dose: 0.4 mg Thiamine HCl (Vitamin B-1) 100 mg PO DAILY [facility] Last Admin: 07/22/17 08:55 Dose: 100 mg Vitamin A/Vitamin D (Sween Cream) 1 applic TOP DAILY [facility] Last Admin: 07/22/17 09:00 Dose: 1 applic Subjective: Pt seen and chart examined. Nursing reports pt is doing well. Sleeping well and has a good appetite. no behaviors noted. On face to face the pt states he is doing well. mood is stable and denies any S/I or psychosis. Tolerating meds. Spoke to patients mother who is concerned about weight gain with Abilify. She denies the pt has any hx of psychotic illness. Does report a hx of some PTSD from past trauma Start Time: 10:15 Stop Time: 10:30 Mental Status Exam Vitals: Last Vital Signs Temp 97.4 F 07/22/17 08:00 Pulse 89 07/22/17 08:00 Resp 18 07/22/17 09:47 BP 135/65 07/22/17 08:00 Pulse Ox 93 07/22/17 08:00 Height: 1.73 m Weight: 94.3 kg - Mental Status Exam Muscle Strength/Tone: Normal Dressing: Casual Grooming: Good Attitude: Cooperative Motor Activity: Retardation Eye Contact: Fair Speech: Slowed Volume: Soft Rhythm: Dysarthric Orientation: Oriented to person, Oriented to place Mood: Neutral Rate of Thoughts: Delayed Thought Organization: [place] Associations: Intact Abstract Reasoning: Poor abstract reasoning Thought Content: Normal Perception/Psychotic: Perception Normal Language: Naming Impaired Fund of Knowledge: Poor fund of knowledge Memory: Poor-immediate Suicidal Ideation: None Homicidal Ideation: None Insight: Poor Judgement: Poor Impulse Control: Poor - Laboratory Result Diagrams: 07/22/17 04:34 07/22/17 04:34 Laboratory Results - last 24 hr 07/19/17 07/21/17 07/21/17 22:18 16:10 16:11 WBC RBC Hgb Hct MCV MCH MCHC RDW Std Deviation Plt Count MPV Immature Gran % (Auto) Neut % (Auto) Lymph % (Auto) [place] % (Auto) Eos % (Auto) Baso % (Auto) Neut # Lymph # [place] # Eos # Baso # Abs Immat Gran (auto) Turbidity < 20 Sodium 142 Potassium 4.4 D Chloride 100 Carbon Dioxide 28 Anion Gap 14 BUN 27.0 H Creatinine 1.6 H GFR Calculation 45 BUN/Creatinine Ratio 17 Glucose 100 Calculated Osmolality 278 Calcium 9.4 Icterus Index < 2 Troponin I 0.085 B-Natriuretic Peptide 950 H Vitamin B12 429 Folate 9.7 Specimen Hemolysis < 15 < 15 07/21/17 07/22/17 07/22/17 21:56 04:34 04:34 WBC 8.5 RBC 4.69 Hgb 15.2 Hct 45.1 MCV 96.2 MCH 32.4 MCHC 33.7 RDW Std Deviation 50.2 Plt Count 141 MPV 10.6 Immature Gran % (Auto) 0.5 Neut % (Auto) 57.6 Lymph % (Auto) 26.4 [place] % (Auto) 11.3 H Eos % (Auto) 3.3 Baso % (Auto) 0.9 Neut # 4.9 Lymph # 2.2 P[place] # 1.0 H Eos # 0.3 Baso # 0.1 Abs Immat Gran (auto) 0.04 H Turbidity < 20 Sodium 140 Potassium 4.5 Chloride 100 Carbon Dioxide 26 Anion Gap 14 BUN 29.0 H Creatinine 1.7 H D GFR Calculation 42 BUN/Creatinine Ratio 17 Glucose 88 Calculated Osmolality 274 Calcium 9.4 Icterus Index < 2 Troponin I 0.087 0.088 B-Natriuretic Peptide 1070 H Vitamin B12 Folate Specimen Hemolysis < 15 < 15 Assessment and Plan (1) Major neurocognitive disorder Problem details: with behavioral disturbance Current visit: Yes Status: Acute Hospital Course Summary Disclaimer: The visit summary below is not to be considered part of the above Progress Note. Hospital Course: 07/20/17 - Initial admission Impression Abnormal behaviors Schizophrenia Major depressive disorder Recent cataract surgery Hypertension Hypothyroidism hyperlipidemia BPH Chronic renal disease COPD [place] [facility] Plan Agree with admission to [facility] under the care of Dr. Freire for further psychiatric evaluation and treatment. Recommend continuing eyedrops as ordered. Given recent cataract surgery. Did review her extensive old records. Patient does have chronic renal disease and this appears to be his baseline creatinine. Creatinine in April was 1.8. Will continue to follow. Nursing staff did report patient had difficulty voiding this morning. He does have known history of BPH. Bladder scan as needed. Continue on chronic Flomax and finasteride. Given elevation in TSH recommend increased Levothyroxine dose to 150mcg daily. This can be followed in the outpatient setting. Monitor blood pressure and continue on current regimen of Cozaar Overall patient appears to be medically stable. Recommend patient participate in unit activities. The hospitalist services will continue to follow patient medical management, stay on the [facility] unit. At time of discharge his medical care will return to primary care provider in [place], [place], Dr. Mirza Stevens 07/21/17 10:34 Pt doing well. Continue current care 07/21/17 15:57 Patient appears in acute fluid overload. Obtain stat CXR, EKG, and BNP now. Give metolazone, KCL x 1 now to diurese. Other differential could be an acute viral illness- May need to add steroids if does not appear to be fluid. Add nebulizer tx. Continue Symbicort. CKD, Baseline 1.7- continue current meds. Monitor on Losartan and KCL. Continue Lasix. Order Echo for Saturday AM. Synthroid was increased due to TSH of 11. It was noted to be 24.54 on 06/21/17. Plan to recheck in 4 weeks for stability with increase in Synthroid dosing. Repeat labs in AM. 07/22/17 Plan Serial troponins yesterday remained negative. Jhonatan has no complaints of chest pain or shortness of breath today He continues on chronic meds including- Aspirin, Plavix, Lipitor, isosorbide, and losartan. Continue on daily Lasix. Will ask nursing staff to weight patient daily without prosthetic leg for weight consistency CKD- Biomed Tech is at baseline. Continue to follow closely Will discuss further with attending, Dr Gomez 07/22/17 10:19 D/C [facility] due to concern for weight gain and no clear indication for it
--- NOTE | 2017-07-22 13:23 | Cardiology Consult Note ---
History of Present Illness Consult date: 07/22/17 <Amber Birmingham R 07/22/17 13:23> Requesting physician: Julia Gomez <Amber Birmingham 07/22/17 13:23> Chief complaint: Dyspnea <Amber Birmingham R 07/22/17 18:42> History of present illness: CC: Dyspnea/cardiomyopathy/EKG Changes Mr. Callejas is a 56-year-old male with a h/o schizophrenia who was recently admitted to the [facility] unit on 07/20/17 after increased behaviors that included sexual remarks towards female residents at [facility] where he has resided since December of 2016. Prior to his admission to [facility] he was sent to the ER for medical clearance were he was found to have a Cr. of 1.7 that was later found to be chronic with a baseline of 1.8. His TSH was also elevated at 11.5 and UA unremarkable. After being medically cleared he was admitted to [facility] for further psychiatric evaluation and treatment. Besides schizophrenia and hypothyroidism & CKD he also has a h/o stroke, COPD, HTN, cardiomyopathy, CAD with PCI, & PAD with LLE AKA. Yesterday had increased SOA with no SOA that was improved with his scheduled Lasix and a one time dose of metolazone. His CXR showed no acute cardiopulmonary abnormalities. At the time of his increased SOA an EKG was also obtained that showed possible ischemic changes from his admission EKG and troponins were drawn that have so far been negative. His medical history is limited d/t poor historian on patient and family reports and limited records from his facility. Though we are able to piece together some hx based on patient 's medications and what he and family are able to report. Patient states that he has had a coronary stent with one HC, but that he is unsure of what printed circuit boards inspector he has followed with in the past. D/t his extensive cardiac hx and changes on his EKG, we were consulted for cardiac evaluation and work up. Today denies any SOA, CP/pressure, diaphoresis, N/V. <Amber Birmingham 07/22/17 18:42> Review of Systems - Constitutional Constitutional: Absent: daytime sleepiness, fever(s), weakness <Amber Birmingham 07/22/17 18:42> - EENMT Eyes: Absent: blurry vision, other (Recent cataract removal) <Ecton, 07/22/17 18:42> - Cardiovascular Cardiovascular: Present: heart murmur. Absent: chest pain, palpitations, syncope, dyspnea on exertion, orthopnea, edema <[place]on, 07/22/17 18:42 > Vascular: Present: intermittent claudication <Ecton, 07/22/17 18:42> Cardiovascular Comments: L AKA <[place]on, 07/22/17 18:42> - Respiratory Respiratory: Absent: cough, dyspnea, dyspnea on exertion, wheezing, chest congestion <[place]on, 07/22/17 18:42> - Gastrointestinal Gastrointestinal: Absent: abdominal pain, change in bowel habits, dysphagia, nausea, vomiting <Ecton, 07/22/17 18:42> - Genitourinary Genitourinary: Absent: difficulty urinating, dysuria, flank pain <E[place]on, 07/22/17 18:42> - Integumentary/Breasts Integumentary: Absent: erythema, rash <Ecton, 07/22/17 18:42> - Neurological Neurological: Absent: dizziness, vertigo, weakness <E[place]on, 07/22/17 18:47> - Psychiatric Psychiatric: Present: behavioral changes <Ecton, 07/22/17 18:42> PFS Patient Stated Medical History Cerebrovascular Accident Yes Cataracts Yes Hypertension Yes Chronic Obstructive Pulmonary Yes Disease (COPD) Sleep Apnea Yes Other Respiratory Yes: HX ARDS Hx Renal Disease Yes Depression Yes Schizophrenia Yes <Jose C Stahl - 07/24/17 16:12> Patient Stated Medical History Cerebrovascular Accident Yes Cataracts Yes Hypertension Yes Chronic Obstructive Pulmonary Yes Disease (COPD) Sleep Apnea Yes Other Respiratory Yes: HX ARDS Hx Renal Disease Yes Depression Yes Schizophrenia Yes <Ecton, 07/22/17 18:42> Surgical History: Left above the knee amputation. cataract surgery- Left () <Ecton, 07/22/17 13:23> Family History: Patient does not know. <[place]cton, 07/22/17 18:42> - Social History Smoking status: Former smoker (quit 1 yr ago) <Amber Birmingham 07/22/17 13:23> Substance use type: does not use <Amber Birmingham 07/22/17 18:42> Alcohol intake frequency: does not drink <Amber Birmingham 07/22/17 18:42> Housing: correction <Amber Birmingham 07/22/17 18:42> Household members: caregiver, other <Amber Birmingham 07/22/17 18:42> service: No <Amber Birmingham 07/22/17 18:42> Current occupational status: disabled <Amber Birmingham 07/22/17 18:42> Current occupational exposures/hazards: No <Amber Birmingham 07/22/17 18:42> Does patient use chewing tobacco?: No <Amber Birmingham 07/22/17 18:42> Current residence: [place] <Amber Birmingham 07/22/17 18:42> Social history: Currently resides at [facility] Primary care provider, Dr. Mirza Stevens <Amber Birmingham 07/22/17 18:42> Medications Home Medications Medication Instructions Recorded Confirmed Type Aspirin *EC* [Ecotrin] 1 tab PO DAILY 07/19/17 07/19/17 History Atorvastatin Calcium 20 mg PO 1800 07/19/17 07/19/17 History Bisacodyl Supp [Dulcolax] 10 mg RECTALLY PRN PRN 07/19/17 07/19/17 History Cholecalciferol [Vit. D-3] 1 tab PO DAILY 07/19/17 07/19/17 History Clopidogrel Bisulfate [Clopidogrel] 75 mg PO DAILY 07/19/17 07/19/17 History Diclofenac [Voltaren] 1 drop LEFT EYE TID 07/19/17 07/19/17 History Docusate Sodium [Colace] 1 cap PO BID 07/19/17 07/19/17 History Finasteride [Proscar] 5 mg PO 1800 07/19/17 07/19/17 History Furosemide [Lasix] 1 tab PO DAILY 07/19/17 07/19/17 History Gabapentin 300 mg PO BID 07/19/17 07/19/17 History Hydrocodone/Acetaminophen 1 tab PO Q4H PRN 07/19/17 07/19/17 History [Hydrocodon-Acetaminophen 5-325] Isosorbide Mononitrate ER [Imdur] 30 mg PO DAILY 07/19/17 07/19/17 History Levothyroxine Sodium 125 mcg PO 0630 07/19/17 07/19/17 History Losartan Potassium 25 mg PO DAILY 07/19/17 07/19/17 History Mirabegron [Myrbetriq] 50 mg PO DAILY 07/19/17 07/19/17 History Multivitamin [One Daily 1 each PO DAILY 07/19/17 07/19/17 History Multivitamin] Nystatin Powder [Mycostatin] 1 applic TOP PRN PRN 07/19/17 07/19/17 History Ofloxacin [Ocuflox] 1 drop LEFT EYE TID 07/19/17 07/19/17 History Polyethylene Glycol 3350 [Miralax] 17 gm PO DAILY 07/19/17 07/19/17 History Potassium Chloride [K-Tab ER] 20 meq PO DAILY 07/19/17 07/19/17 History Sween 24 1 applic TOP DAILY 07/19/17 07/19/17 History Tamsulosin [Flomax] 0.4 mg PO 1800 07/19/17 07/19/17 History Thiamine HCl 100 mg PO DAILY 07/19/17 07/19/17 History Triple Antibiotic Ointment TOP BID 07/19/17 History prednisoLONE acetate [Prednisolone 1 drop LEFT EYE QID 07/19/17 07/19/17 History Acetate] raNITIdine HCl [Ranitidine HCl] 150 mg PO 1800 07/19/17 07/19/17 History <Jose C Stahl - 07/24/17 16:12> Allergies Allergy/AdvReac Type Severity Reaction Status Date / Time No Known Allergies Allergy Verified 07/19/17 18:04 <Jose C Stahl - 07/24/17 16:12> Exam Vital signs: Temperature 97.6 F 07/24/17 09:03 Pulse Rate 88 07/24/17 09:03 Respiratory Rate 16 07/24/17 11:17 Blood Pressure 106/54 07/24/17 09:03 Pulse Oximetry 93 07/24/17 09:03 <Jose C Stahl - 07/24/17 16:12> Temperature 97.4 F 07/22/17 08:00 Pulse Rate 89 07/22/17 08:00 Respiratory Rate 18 07/22/17 09:47 Blood Pressure 135/65 07/22/17 08:00 Pulse Oximetry 93 07/22/17 08:00 <Ecton, R 07/22/17 18:42> - Constitutional no acute distress, cooperative <Ecton, 07/22/17 18:42> - Routine HEENT Exam Head: Present: normocephalic <Ecton, 07/22/17 18:42> Eye: Present: EOMI <[place]on, 07/22/17 18:42> ENT: Present: mucous membranes moist <Ecton, 07/22/17 18:42> - Routine Neck Exam Absent: JVD, carotid bruit, lymphadenopathy <Ecton, 07/22/17 18:42> - Routine Respiratory Exam Present: CTA bilaterally. Absent: dyspnea, rhonchi, wheezes, crackles <Ecton, 07/22/17 18:42> - Routine Cardiovascular Exam Present: RRR, murmur (I/). Absent: gallop, rubs, JVD <Ecton, 07/22 18:42> - Routine Abdominal Exam Present: soft, normoactive bowel sounds, non distended, non tender <Ecton, 07/22/17 18:42> - Routine Extremities Exam Present: no edema (L AKA) <Ecton, 07/22/17 18:42> - Routine Skin Exam Present: intact, dry, warm. Absent: erythema, rash <Ecton, 07/22/17 18:42> - Routine Neurological Exam Present: alert, normal speech <[facility], 07/22/17 18:42> - Routine Psychiatric Exam Present: cooperative. Absent: normal thought process, good insight, good judgment <EctonAmber 07/22/17 18:47> Results 07/22/17 04:34 07/22/17 04:34 <Jose C Stahl - 07/24/17 16:12> Intake and Output 07/24/17 07/24/17 07/24/17 06:59 14:59 22:59 Other: Urine Appearance Clear Clear Urine Color Yellow Yellow Urine Odor Normal Normal Stool Color Brown Stool Consistency Soft Size of Bowel Movement Moderate # Voids 1 1 # Bowel Movements 1 <Veronica Stahlin - 07/24/17 16:12> Cardiac Enzymes 07/21/17 07/21/17 07/21/17 Range/Units 16:10 16:11 21:56 Troponin I 0.085 0.087 (0-0.12) ng/ml B-Natriuretic Peptide 950 H (0-175) pg/mL 07/22/17 Range/Units 04:34 Troponin I 0.088 (0-0.12) ng/ml B-Natriuretic Peptide 1070 H (0-175) pg/mL Coagulation 07/21/17 07/22/17 Range/Units 16:11 04:34 B-Natriuretic Peptide 950 H 1070 H (0-175) pg/mL CBC 07/22/17 Range/Units 04:34 WBC 8.5 (4.5-11.0) T/MM3 RBC 4.69 (4.50-5.90) M/MM3 Hgb 15.2 (13.5-17.5) GM/DL Hct 45.1 (41-53) % Plt Count 141 (130-400) T/MM3 Neut # 4.9 (1.8-7.7) T/MM3 Lymph # 2.2 (1-4.8) T/MM3 Piatt # 1.0 H (0-0.8) T/MM3 Eos # 0.3 (0-0.5) T/MM3 Baso # 0.1 (0-0.2) T/MM3 Comprehensive Metabolic Panel 07/21/17 07/22/17 Range/Units 16:11 04:34 Sodium 142 140 (134-144) MEQ/L Potassium 4.4 D 4.5 (3.6-5) MEQ/L Chloride 100 100 (98-107) MEQ/L Carbon Dioxide 28 26 (22-30) MEQ/L BUN 27.0 H 29.0 H (9-20) MG/DL Creatinine 1.6 H 1.7 H D (0.8-1.5) MG/DL Glucose 100 88 (75-110) MG/DL Calcium 9.4 9.4 (8.4-10.2) MG/DL Intake and Output 09/03/17 09/04/17 09/04/17 22:59 06:59 14:59 Output Total 251 / 251 Balance -251 / -251 Output: Urine 251 / 251 Other: Urine Appearance Clear Clear Clear Urine Color Yellow Yellow Pale Urine Odor Normal Normal Normal Stool Color Brown Stool Consistency Soft Size of Bowel Movement Moderate # Voids 1 1 1 # Bowel Movements 1 <ChazAmber perez R - 07/22/17 18:42> - Imaging and Cardiology Imaging & Cardiology Narrative: 07/22/17 18:03 Date of Exam: 07/21/17 Ordering Provider: Alena Lucio APRN Type of Exam(s): XR chest 1V Reason for Exam(s): SOA Indication: SOA PROCEDURE: XR chest 1V: Encounter: Initial Comparison: None FINDINGS: Left costophrenic angle is excluded from the [id number]. The lungs are clear. There is no abnormal airspace opacity, pleural effusion or pneumothorax identified. The heart size, pulmonary vasculature and mediastinum are within normal limits. No significant skeletal abnormality is seen. IMPRESSION: No acute cardiopulmonary abnormality. . 07/22/17 18:09 EKG 07/19: SR 80's RBBB EKG 07/21: SR 79 RBBB <Amber Birmingham R - 07/22/17 18:42> Assessment and Plan (1) Abnormal behavior Current visit: Yes Status: Acute (2) Major neurocognitive disorder Problem details: with behavioral disturbance Current visit: Yes Status: Acute (3) Hypothyroidism Current visit: Yes Status: Acute (4) History of stroke Current visit: Yes Status: Acute (5) Cardiomyopathy Current visit: Yes Status: Acute (6) COPD (chronic obstructive pulmonary disease) Current visit: Yes Status: Acute (7) HTN (hypertension) Current visit: Yes Status: Acute (8) CAD (coronary artery disease) Current visit: Yes Status: Acute (9) CKD (chronic kidney disease) Current visit: Yes Status: Acute (10) PAD (peripheral artery disease) Current visit: Yes Status: Acute (11) Hyperlipidemia Current visit: Yes Status: Acute (12) Acute dyspnea Current visit: Yes Status: Acute (13) Abnormal EKG Current visit: Yes Status: Acute <Jose C Stahl - 07/24/17 16:12> (1) Abnormal EKG Current visit: Yes Status: Acute EKG 07/19: SR 80's RBBB and EKG 07/21: SR 79 RBBB which had showed some possible T wave changes/ischemic changes. Troponins negative x3. Discussed and reviewed EKG 's with Dr. Stahl. Noted no changes between EKG's and that both only showed NSR with RBBB. (2) Acute dyspnea Current visit: Yes Status: Acute CXR stable. No noted increased edema. Improved with extra diuresing. Con't daily lasix and breathing tx. Ordering Echo tomorrow. (3) Cardiomyopathy Current visit: Yes Status: Acute BNP 07/22:1070. Con't current medication regimen statin, ASA, Imdur, Imdur & Cozaar. Echo ordered for tomorrow. (4) History of stroke Current visit: Yes Status: Acute Con't Plavix and ASA. (5) COPD (chronic obstructive pulmonary disease) Current visit: Yes Status: Acute Attending managing. On RA with scheduled albuterol neb tx and Symbicort. (6) Hypothyroidism Current visit: Yes Status: Acute TSH 07/19/17: 11. 50. Con't Synthroid 150mcg daily. Attending managing. (7) HTN (hypertension) Current visit: Yes Status: Acute BP's stable. Con't Cozaar 25mg daily. (8) CAD (coronary artery disease) Current visit: Yes Status: Acute S/p stent. Con't statin, ASA, Plavix & ARB. No BB, will con't to hold d/t COPD and recent respiratory distress. (9) CKD (chronic kidney disease) Current visit: Yes Status: Acute Last known baseline 1.8. Today's lab Cr. 1.7, BUN 29.0, K+4.5. Will add Mag to AM lab. Con't to monitor with daily lasix 40mg daily. (10) PAD (peripheral artery disease) Current visit: Yes Status: Acute Con't statin, ASA and Plavix. (11) Hyperlipidemia Current visit: Yes Status: Acute Con't Atorvastatin 20mg daily and daily ASA 81mg daily. (12) Abnormal behavior Current visit: Yes Status: Acute Improving. Treated for MDD and Schizophrenia per medical team. (13) Major neurocognitive disorder Problem details: with behavioral disturbance Current visit: Yes Status: Acute Treated for MDD and Schizophrenia per medical team. <Amber Birmingham R - 07/22/17 19:36> - Attestation Attestation Narrative: 07/24/17 16:12 Recommendation After examining the patient I agree with the above assessment. I am involved in the formulation of the patient's plan of care. <Jose C Stahl - 07/24/17 16:12> Hospital Course Summary Disclaimer: The visit summary below is not to be considered part of the above Progress Note. <Jose C Stahl - 07/24/17 16:12> The visit summary below is not to be considered part of the above Progress Note. <Amber Birmingham R - 07/22/17 13:23> Hospital Course: 07/20/17 - Initial admission Impression Abnormal behaviors Schizophrenia Major depressive disorder Recent cataract surgery Hypertension Hypothyroidism hyperlipidemia BPH Chronic renal disease COPD SABAS PVD Plan Agree with admission to [facility] under the care of Dr. Freire for further psychiatric evaluation and treatment. Recommend continuing eyedrops as ordered. Given recent cataract surgery. Did review her extensive old records. Patient does have chronic renal disease and this appears to be his baseline creatinine. Creatinine in April was 1.8. Will continue to follow. Nursing staff did report patient had difficulty voiding this morning. He does have known history of BPH. Bladder scan as needed. Continue on chronic Flomax and finasteride. Given elevation in TSH recommend increased Levothyroxine dose to 150mcg daily. This can be followed in the outpatient setting. Monitor blood pressure and continue on current regimen of Cozaar Overall patient appears to be medically stable. Recommend patient participate in unit activities. The hospitalist services will continue to follow patient medical management, stay on the [facility] unit. At time of discharge his medical care will return to primary care provider in [place] Dr. James Larzalere 07/21/17 10:34 Pt doing well. Continue current care 07/21/17 15:57 Patient appears in acute fluid overload. Obtain stat CXR, EKG, and BNP now. Give metolazone, KCL x 1 now to diurese. Other differential could be an acute viral illness- May need to add steroids if does not appear to be fluid. Add nebulizer tx. Continue Symbicort. CKD, Baseline 1.7- continue current meds. Monitor on Losartan and KCL. Continue Lasix. Order Echo for Saturday AM. Synthroid was increased due to TSH of 11. It was noted to be 24.54 on 06/21/17. Plan to recheck in 4 weeks for stability with increase in Synthroid dosing. Repeat labs in AM. 07/22/17 Plan Serial troponins yesterday remained negative. Jhonatan has no complaints of chest pain or shortness of breath today He continues on chronic meds including- Aspirin, Plavix, Lipitor, isosorbide, and losartan. Continue on daily Lasix. Will ask nursing staff to weight patient daily without prosthetic leg for weight consistency CKD- [employer] is at baseline. Continue to follow closely Will discuss further with attending, Dr Gomez 07/22/17 10:19 D/C Abilifporfirio due to concern for weight gain and no clear indication for it <Amber Birmingham R - 07/22/17 13:23> Sepsis Assessment - Evaluation Sepsis screening result: No Definite Risk <Amber Birmingham - 07/22/17 13:23>
--- NOTE | 2017-07-22 17:26 | XRay Report ---
Indication: SOA PROCEDURE: XR chest 1V: Encounter: Initial Comparison: None FINDINGS: Left costophrenic angle is excluded from the [id number]. The lungs are clear. There is no abnormal airspace opacity, pleural effusion or pneumothorax identified. The heart size, pulmonary vasculature and mediastinum are within normal limits. No significant skeletal abnormality is seen. IMPRESSION: No acute cardiopulmonary abnormality. .
[2017-07-22] MEDS: RANITIDINE 150 MG TABLET PO SCH (17:35)
[2017-07-22] MEDS: ATORVASTATIN 20 MG TABLET PO SCH (17:35)
[2017-07-22] MEDS: TAMSULOSIN 0.4 MG CAPSULE PO SCH (17:35)
[2017-07-22] MEDS: FINASTERIDE 5 MG TABLET PO SCH (17:35)
[2017-07-23] MEDS: LEVOTHYROXINE 150 MCG TABLET PO SCH (06:17)
[2017-07-23] MEDS: ISOSORBIDE MONONITRATE ER 30 MG TABLET PO SCH (06:17)
[2017-07-23] MEDS: MULTI-VITAMIN PLAIN TABLET PO SCH (10:03)
[2017-07-23] MEDS: DOCUSATE SODIUM 100 MG CAPSULE PO SCH ×2 (10:03→20:01)
[2017-07-23] MEDS: ASPIRIN *EC* 81 MG TABLET PO SCH (10:04)
[2017-07-23] MEDS: GABAPENTIN 300 MG CAPSULE PO SCH ×2 (10:04→20:01)
[2017-07-23] MEDS: MIRABEGRON 25mg TABLET PO SCH (10:04)
[2017-07-23] MEDS: LOSARTAN 50 MG TABLET PO SCH (10:05)
[2017-07-23] MEDS: OFLOXACIN 0.3% LEFT EYE SCH ×3 (10:06→20:01)
[2017-07-23] MEDS: EYE LEFT EYE SCH ×10 (10:06→20:02)
[2017-07-23] MEDS: DICLOFENAC 0.1% LEFT EYE SCH ×3 (10:08→20:02)
[2017-07-23] MEDS: POLYETHYL GLYCOL 3350 17gm PACKET PO SCH (10:08)
[2017-07-23] MEDS: PREDNISOLONE 1% LEFT EYE SCH ×4 (10:09→20:01)
[2017-07-23] MEDS: CLOPIDOGREL 75 MG TABLET PO SCH (10:09)
[2017-07-23] MEDS: [UNRECOGNIZED DRUG - OTHER] TOP SCH (10:10)
[2017-07-23] MEDS: VITAMINS A TOP SCH (10:10)
[2017-07-23] MEDS: FUROSEMIDE 40 MG TABLET PO SCH (10:14)
[2017-07-23] MEDS: BENZOCAINE 20% ORAL GEL (Max Strength) MM PRN ×2 (14:52→20:22)
--- NOTE | 2017-07-23 15:12 | Progress Note ---
Subjective: Jhonatan is seen this morning following request from the nursing staff. He has a area on the right lateral tongue that is uncomfortable. He reports it started last evening. He does use C-pap at night however does not feel this has affected the sore area. Otherwise he has no complaints of chest pain or shortness of breath. Objective Vital signs: Temperature 98.9 F 07/23/17 10:00 Pulse Rate 95 07/23/17 10:00 Respiratory Rate 22 07/23/17 10:00 Blood Pressure 127/65 07/23/17 10:00 Pulse Oximetry 100 07/23/17 10:00 Height/Weight/BMI: Height 1.73 m Weight 94.3 kg Body Mass Index 31.6 - Constitutional Present: well nourished, well developed - Routine HEENT Exam Eye: Present: EOMI ENT: Present: mucous membranes moist, dentition normal Comments: Small raised area of erythema to left lateral tongue. - Routine Respiratory Exam Present: CTA bilaterally. Absent: wheezes - Routine Cardiovascular Exam Present: RRR, S1, S2. Absent: murmur - Routine Abdominal Exam Present: soft, normoactive bowel sounds, non distended. Absent: tenderness - Routine Extremities Exam Present: normal capillary refill - Routine Skin Exam Present: dry, warm - Routine Neurological Exam Present: alert, oriented X3, CN II-XII intact - Routine Lymphatic Exam Lymphatic: Absent: adenopathy - Routine Psychiatric Exam Present: normal affect Results - Labs CBC & Chem 7: 07/22/17 04:34 07/22/17 04:34 Assessment and Plan (1) Abnormal behavior Current visit: Yes Status: Acute Assessment and Plan: 07/23/2017 Impression Dyspnea of uncertain etiology-resolved after breathing treatment and Zaroxolyn 1 Cardiomyopathy-notes in the chart showed the family has stated he has "one third " of his heart History of stroke COPD Hypertension EKG with with changes since admission, possible lateral ischemia but no chest discomfort Probable history of underlying coronary artery disease Chronic kidney disease is stable (baseline Nurse Discharge Planner 1.6-1.8) Plan- Will continue to monitor sore to right lateral tongue. Did order topical benzocaine to use for discomfort. Monitor for evidence of infection. No further episodes of dyspnea, or other cardiac concerns. Patient did have an echocardiogram that is pending. Cardiology read. Continue current medication regimen statin, ASA, Imdur, Imdur & Cozaar. Continue Lasix for gently Diuresis Encourage patient to participate in unit activities and provide a safe environment Sepsis Assessment - Evaluation Sepsis screening result: No Definite Risk Hospital Course Summary Disclaimer: The visit summary below is not to be considered part of the above Progress Note. Hospital Course: 07/20/17 - Initial admission Impression Abnormal behaviors Schizophrenia Major depressive disorder Recent cataract surgery Hypertension Hypothyroidism hyperlipidemia BPH Chronic renal disease COPD SABAS PVD Plan Agree with admission to [facility] under the care of Dr. Freire for further psychiatric evaluation and treatment. Recommend continuing eyedrops as ordered. Given recent cataract surgery. Did review her extensive old records. Patient does have chronic renal disease and this appears to be his baseline creatinine. Creatinine in April was 1.8. Will continue to follow. Nursing staff did report patient had difficulty voiding this morning. He does have known history of BPH. Bladder scan as needed. Continue on chronic Flomax and finasteride. Given elevation in TSH recommend increased Levothyroxine dose to 150mcg daily. This can be followed in the outpatient setting. Monitor blood pressure and continue on current regimen of Cozaar Overall patient appears to be medically stable. Recommend patient participate in unit activities. The hospitalist services will continue to follow patient medical management, stay on the [facility] unit. At time of discharge his medical care will return to primary care provider in [place], [place], Dr. Mirza Stevens 07/21/17 10:34 Pt doing well. Continue current care 07/21/17 15:57 Patient appears in acute fluid overload. Obtain stat CXR, EKG, and BNP now. Give metolazone, KCL x 1 now to diurese. Other differential could be an acute viral illness- May need to add steroids if does not appear to be fluid. Add nebulizer tx. Continue Symbicort. CKD, Baseline 1.7- continue current meds. Monitor on Losartan and KCL. Continue Lasix. Order Echo for Saturday AM. Synthroid was increased due to TSH of 11. It was noted to be 24.54 on 06/21/17. Plan to recheck in 4 weeks for stability with increase in Synthroid dosing. Repeat labs in AM. 07/22/17 Plan Serial troponins yesterday remained negative. Jhonatan has no complaints of chest pain or shortness of breath today He continues on chronic meds including- Aspirin, Plavix, Lipitor, isosorbide, and losartan. Continue on daily Lasix. Will ask nursing staff to weight patient daily without prosthetic leg for weight consistency CKD- Nurse Discharge Planner is at baseline. Continue to follow closely Will discuss further with attending, Dr Gomez 07/22/17 10:19 D/C Abilify due to concern for weight gain and no clear indication for it
--- NOTE | 2017-07-23 15:38 | Cardiology Progress Note ---
Subjective Principal diagnosis: abnormal EKG, acute dyspnea <Kylee Richards 07/23/17 15 :38> Interval history: Mirza is seen in follow up for his abnormal EKG and acute dyspnea <Kylee Richards 07/24/17 14:27> Exam Vital signs: Temperature 97.4 F 07/25/17 08:16 Pulse Rate 101 H 07/25/17 08:16 Respiratory Rate 20 07/25/17 08:16 Blood Pressure 131/66 07/25/17 08:16 Pulse Oximetry 93 07/25/17 08:16 <Jose C Stahl - 07/26/17 13:39> Temperature 98.9 F 07/23/17 10:00 Pulse Rate 95 07/23/17 10:00 Respiratory Rate 22 07/23/17 10:00 Blood Pressure 127/65 07/23/17 10:00 Pulse Oximetry 100 07/23/17 10:00 <Kylee Richards 07/23/17 15:38> - Constitutional no acute distress, well nourished, cooperative <Kylee Richards 07/24/17 14: 57> - Routine HEENT Exam Head: Present: normocephalic <Kylee Richarsd 07/24/17 14:57> ENT: Present: mucous membranes moist <SusieKylee 07/24/17 14:57> - Routine Neck Exam Absent: JVD, carotid bruit <SusieKylee 07/24/17 14:57> - Routine Chest/Breast/Axilla Exam Chest wall: Absent: tenderness <SusieKylee Newman 07/24/17 14:57> - Routine Respiratory Exam Present: CTA bilaterally. Absent: rales, wheezes <SusieKylee Newman 07/24/17 14:57> - Routine Cardiovascular Exam Present: RRR, no murmur <SusieKylee 07/24/17 14:57> - Routine Abdominal Exam Present: soft, normoactive bowel sounds <SusieKylee Newman 07/24/17 14:57> - Routine Extremities Exam Present: no edema <SusieKylee Trent 07/24/17 14:57> - Routine Skin Exam Present: intact, dry, warm <SusieKylee salomon Trent - 07/24/17 14:57> - Routine Neurological Exam Present: alert, oriented X3 <Kylee Richards - 07/24/17 14:57> - Routine Psychiatric Exam Present: normal affect, normal thought process <Kylee Richards - 07/24/17 14: 57> Progress Note-A&P (1) Abnormal behavior Status: Acute (2) Major neurocognitive disorder Problem details: with behavioral disturbance Status: Acute (3) Hypothyroidism Status: Acute (4) History of stroke Status: Acute (5) Cardiomyopathy Status: Acute (6) COPD (chronic obstructive pulmonary disease) Status: Acute (7) HTN (hypertension) Status: Acute (8) CAD (coronary artery disease) Status: Acute (9) CKD (chronic kidney disease) Status: Acute (10) PAD (peripheral artery disease) Status: Acute (11) Hyperlipidemia Status: Acute (12) Acute dyspnea Status: Acute (13) Abnormal EKG Status: Acute <Jose C Stahl - 07/26/17 13:39> (1) Acute dyspnea Status: Acute Assessment and plan: CXR stable. No noted increased edema. Improved with extra diuresing. Con't daily lasix and breathing tx. Ordering Echo tomorrow. (2) Cardiomyopathy Status: Acute Assessment and plan: BNP 07/22:1070. Con't current medication regimen statin, ASA, Imdur, Imdur & Cozaar. Echo report below. Date of Exam: 07/23/17 Type of Exam(s): US echo doppler complete DATE OF PROCEDURE July 23, 2017 This is a two-dimensional echo with spectral Doppler, color-flow and M-mode. It was obtained in a patient with cardiomyopathy. Left atrium is dilated. Left ventricular end-diastolic dimension is increased. Left ventricular wall thickness is increased. LV systolic function is reduced with septal and anterior akinesia with ejection fraction of 25%-30%. Right atrium is normal. Right ventricle is normal. Aortic root dimension is normal. Mitral valve is morphologically normal with mild mitral regurgitation. Aortic valve is a trileaflet structure with [id number] aortic insufficiency. Tricuspid valve shows mild tricuspid regurgitation with normal estimated pulmonary artery systolic pressure of 26. Pulmonary valve shows trace of pulmonary insufficiency. There is no pericardial effusion. IMPRESSION 1. Left ventricular dilation. 2. Left atrial dilation. 3. Concentric left ventricular hypertrophy. 4. Wall motion abnormalities as described above with ejection fraction of about 25%-30%. 5. Mild mitral regurgitation. 6. Efik-jk-ycxcgiwr aortic insufficiency. 7. Mild tricuspid regurgitation with normal estimated pulmonary artery systolic pressure of 26. 8. Trace of pulmonary insufficiency. (3) COPD (chronic obstructive pulmonary disease) Status: Acute Assessment and plan: Attending managing. On RA with scheduled albuterol neb tx and Symbicort. (4) History of stroke Status: Acute Assessment and plan: Con't Plavix and ASA. (5) Hypothyroidism Status: Acute (6) HTN (hypertension) Status: Acute Assessment and plan: BP's stable. Con't Cozaar 25mg daily. (7) CAD (coronary artery disease) Status: Acute Assessment and plan: S/p stent. Con't statin, ASA, Plavix & ARB. No BB, will con't to hold d/t COPD and recent respiratory distress. (8) CKD (chronic kidney disease) Status: Acute Assessment and plan: Last known baseline 1.8. Yesterday Cr. 1.7, BUN 29.0, K+4.5. Will add Mag to AM lab. Con't to monitor with daily lasix 40mg daily. (9) PAD (peripheral artery disease) Status: Acute (10) Hyperlipidemia Status: Acute (11) Abnormal behavior Status: Acute (12) Major neurocognitive disorder Problem details: with behavioral disturbance Status: Acute (13) Abnormal EKG Status: Acute Assessment and plan: EKG 07/19: SR 80's RBBB and EKG 07/21: SR 79 RBBB which had showed some possible T wave changes/ischemic changes. Troponins negative x3. Discussed and reviewed EKG 's with Dr. Stahl. Noted no changes between EKG's and that both only showed NSR with RBBB. <Kylee Richards - 07/26/17 13:30> - Time Spent With Patient Total time spent is greater than 50% in coordination of care (as documented) at patient's floor/unit and/or counseling patient: <Jose C Stahl - 07/26/17 13:39> Total time spent is greater than 50% in coordination of care (as documented) at patient's floor/unit and/or counseling patient: <Kylee Richards - 07/23/17 15:38> less than 15 minutes <Kylee Richards - 07/26/17 13:31> - Attestation Attestation Narrative: Recommendation After examining the patient I agree with the above assessment. I am involved in the formulation of the patient's plan of care. <Jose C Stahl - 07/26/17 13:39> Sepsis Assessment - Evaluation Sepsis screening result: No Definite Risk <Kylee Richards - 07/23/17 15:38> Hospital Course Summary Disclaimer: The visit summary below is not to be considered part of the above Progress Note. <Jose C Stahl - 07/26/17 13:39> The visit summary below is not to be considered part of the above Progress Note. <Kylee Richards - 07/23/17 15:38> Hospital Course: 07/20/17 - Initial admission Impression Abnormal behaviors Schizophrenia Major depressive disorder Recent cataract surgery Hypertension Hypothyroidism hyperlipidemia BPH Chronic renal disease COPD SABAS PVD Plan Agree with admission to [facility] under the care of Dr. Freire for further psychiatric evaluation and treatment. Recommend continuing eyedrops as ordered. Given recent cataract surgery. Did review her extensive old records. Patient does have chronic renal disease and this appears to be his baseline creatinine. Creatinine in April was 1.8. Will continue to follow. Nursing staff did report patient had difficulty voiding this morning. He does have known history of BPH. Bladder scan as needed. Continue on chronic Flomax and finasteride. Given elevation in TSH recommend increased Levothyroxine dose to 150mcg daily. This can be followed in the outpatient setting. Monitor blood pressure and continue on current regimen of Cozaar Overall patient appears to be medically stable. Recommend patient participate in unit activities. The hospitalist services will continue to follow patient medical management, stay on the [facility] unit. At time of discharge his medical care will return to primary care provider in [place], Dr. Mirza Stevens 07/21/17 10:34 Pt doing well. Continue current care 07/21/17 15:57 Patient appears in acute fluid overload. Obtain stat CXR, EKG, and BNP now. Give metolazone, KCL x 1 now to diurese. Other differential could be an acute viral illness- May need to add steroids if does not appear to be fluid. Add nebulizer tx. Continue Symbicort. CKD, Baseline 1.7- continue current meds. Monitor on Losartan and KCL. Continue Lasix. Order Echo for Saturday AM. Synthroid was increased due to TSH of 11. It was noted to be 24.54 on 06/21/17. Plan to recheck in 4 weeks for stability with increase in Synthroid dosing. Repeat labs in AM. 07/22/17 Plan Serial troponins yesterday remained negative. Jhonatan has no complaints of chest pain or shortness of breath today He continues on chronic meds including- Aspirin, Plavix, Lipitor, isosorbide, and losartan. Continue on daily Lasix. Will ask nursing staff to weight patient daily without prosthetic leg for weight consistency CKD- [place] Bander is at baseline. Continue to follow closely Will discuss further with attending, Dr Gomez 07/22/17 10:19 D/C Abilify due to concern for weight gain and no clear indication for it 07/23/17 Cardiology EKG 07/19: SR 80's RBBB and EKG 07/21: SR 79 RBBB which had showed some possible T wave changes/ischemic changes. Troponins negative x3. Discussed and reviewed EKG 's with Dr. Stahl. Noted no changes between EKG's and that both only showed NSR with RBBB. Acute dyspnea: CXR stable. No noted increased edema. Improved with extra diuresing. Con't daily lasix and breathing tx. Ordering Echo tomorrow. Cardiomyopathy BNP 07/22:1070. Con't current medication regimen statin, ASA, Imdur, Imdur & Cozaar. See Echo report HTN BP's stable. Con't Cozaar 25mg daily. CAD (coronary artery disease) S/p stent. Con't statin, ASA, Plavix & ARB. No BB, will con't to hold d/t COPD and recent respiratory distress. PAD (peripheral artery disease) Con't statin, ASA and Plavix. Hyperlipidemia Con't Atorvastatin 20mg daily and daily ASA 81mg daily. <Kylee Richards - 07/24/17 14:27>
--- NOTE | 2017-07-23 17:11 | Neuropsych Progress Note ---
[facility] Subjective Date: 07/23/17 - Sujective/Severity of Illness Medications: Acetaminophen/Hydrocodone Bitart ([place] 5/325) 1 tab PO Q4H PRN PRN Reason: Pain Last Admin: 07/21/17 18:12 Dose: 1 tab Albuterol Sulfate (Proventil Neb (0.083%)) 2.5 mg AEROSOL Q4H PRN PRN Reason: Shortness of air Last Admin: 07/21/17 16:10 Dose: 2.5 mg Aspirin (Ecotrin) 81 mg PO DAILY [facility] Last Admin: 07/23/17 10:04 Dose: 81 mg Atorvastatin Calcium (Lipitor) 20 mg PO 1800 [facility] Last Admin: 07/22/17 17:35 Dose: 20 mg Benzocaine (Orajel) 1 applic MM QID PRN PRN Reason: Pain Last Admin: 07/23/17 14:52 Dose: 1 applic Bisacodyl (Dulcolax) 10 mg RECTALLY PRN PRN PRN Reason: Constipation Budesonide/Formoterol Fumarate (Symbicort Inhaler) 2 puff ORAL INH RTBID [facility] Last Admin: 07/23/17 10:42 Dose: 2 puff Cholecalciferol (Vit. D-3) 1,000 unit PO DAILY [facility] Last Admin: 07/23/17 10:03 Dose: 1,000 unit Clopidogrel Bisulfate (Plavix) 75 mg PO DAILY [facility] Last Admin: 07/23/17 10:09 Dose: 75 mg Diclofenac Sodium (Voltaren) 1 drop LEFT EYE TID [facility] Stop: 07/31/17 21:00 Last Admin: 07/23/17 14:52 Dose: 1 drop Docusate Sodium (Colace) 100 mg PO BID [facility] Last Admin: 07/23/17 10:03 Dose: 100 mg Finasteride (Proscar) 5 mg PO 1800 [facility] Last Admin: 07/22/17 17:35 Dose: 5 mg Furosemide (Lasix) 40 mg PO DAILY [facility] Last Admin: 07/23/17 10:14 Dose: 40 mg Gabapentin (Neurontin) 300 mg PO BID [facility] Last Admin: 07/23/17 10:04 Dose: 300 mg Haloperidol (Haldol) 0.5 mg PO Q6H PRN PRN Reason: Extreme agitation Haloperidol Lactate (Haldol) 0.5 mg IM Q6H PRN PRN Reason: Extreme agitation Isosorbide Mononitrate (Imdur) 30 mg PO ACB [facility] Last Admin: 07/23/17 06:17 Dose: 30 mg Levothyroxine Sodium (Synthroid) 150 mcg PO ACB [facility] Last Admin: 07/23/17 06:17 Dose: 150 mcg Lorazepam (Ativan) 0.5 mg PO Q6H PRN PRN Reason: Extreme agitation Lorazepam (Ativan Inj) 0.5 mg IM Q6H PRN PRN Reason: Extreme agitation Losartan Potassium (Cozaar) 25 mg PO DAILY [facility] Last Admin: 07/23/17 10:05 Dose: 25 mg Mirabegron (Myrbetriq) 50 mg PO DAILY [facility] Last Admin: 07/23/17 10:04 Dose: 50 mg Multivitamins (Theragran) 1 tab PO DAILY [facility] Last Admin: 07/23/17 10:03 Dose: 1 tab Nystatin (Mycostatin) 1 applic TP PRN PRN PRN Reason: Rash Ofloxacin (Ocuflox) 1 drop LEFT EYE TID [facility] Last Admin: 07/23/17 14:50 Dose: 1 drop Polyethylene Glycol (Miralax) 17 gm PO DAILY [facility] Last Admin: 07/23/17 10:08 Dose: 17 gm Potassium Chloride (K-Dur) 20 meq PO WB [facility] Last Admin: 07/23/17 10:04 Dose: 20 meq Prednisolone Acetate (Pred Forte) 1 drop LEFT EYE QID [facility] Stop: 07/30/17 21:00 Last Admin: 07/23/17 17:08 Dose: 1 drop Ranitidine HCl (Zantac) 150 mg PO 1800 [facility] Last Admin: 07/22/17 17:35 Dose: 150 mg Tamsulosin HCl (Flomax) 0.4 mg PO 1800 [facility] Last Admin: 07/22/17 17:35 Dose: 0.4 mg Thiamine HCl (Vitamin B-1) 100 mg PO DAILY [facility] Last Admin: 07/23/17 10:04 Dose: 100 mg Vitamin A/Vitamin D (Sween Cream) 1 applic TOP DAILY [facility] Last Admin: 07/23/17 10:10 Dose: 1 applic Subjective: Pt seen and chart examined. Nursing reports pt is doing well. Sleeping well and has a good appetite. No behaviors noted. On face to face the pt states he is doing well. Mood stable. Denies S/I or psychosis. Tolerating meds Start Time: 16:30 Stop Time: 16:45 Mental Status Exam Vitals: Last Vital Signs Temp 97.8 F 07/23/17 15:56 Pulse 91 07/23/17 15:56 Resp 20 07/23/17 15:56 BP 123/63 07/23/17 15:56 Pulse Ox 96 07/23/17 15:56 Height: 1.73 m Weight: 94.3 kg - Mental Status Exam Muscle Strength/Tone: Normal Dressing: Casual Grooming: Good Attitude: Cooperative Motor Activity: Retardation Eye Contact: Fair Speech: Slowed Volume: Soft Rhythm: Dysarthric Orientation: Oriented to person, Oriented to place Mood: Neutral Rate of Thoughts: Delayed Thought Organization: [place] Associations: Intact Abstract Reasoning: Poor abstract reasoning Thought Content: Normal Perception/Psychotic: Perception Normal Language: Naming Impaired Fund of Knowledge: Poor fund of knowledge Memory: Poor-immediate Suicidal Ideation: None Homicidal Ideation: None Insight: Poor Judgement: Poor Impulse Control: Poor - Laboratory Result Diagrams: 07/22/17 04:34 07/22/17 04:34 Laboratory Results - last 24 hr 07/19/17 07/23/17 22:18 07:05 Magnesium 2.2 Triglycerides 498 H Cholesterol 160 LDL Cholesterol, Calc 34.4 L VLDL Cholesterol 99.6 H HDL Cholesterol 26 L Cholesterol/HDL Ratio 6.2 H Assessment and Plan (1) Major neurocognitive disorder Problem details: with behavioral disturbance Current visit: Yes Status: Acute Hospital Course Summary Disclaimer: The visit summary below is not to be considered part of the above Progress Note. Hospital Course: 07/20/17 - Initial admission Impression Abnormal behaviors Schizophrenia Major depressive disorder Recent cataract surgery Hypertension Hypothyroidism hyperlipidemia BPH Chronic renal disease COPD [place] PVD Plan Agree with admission to [facility] under the care of Dr. Freire for further psychiatric evaluation and treatment. Recommend continuing eyedrops as ordered. Given recent cataract surgery. Did review her extensive old records. Patient does have chronic renal disease and this appears to be his baseline creatinine. Creatinine in April was 1.8. Will continue to follow. Nursing staff did report patient had difficulty voiding this morning. He does have known history of BPH. Bladder scan as needed. Continue on chronic Flomax and finasteride. Given elevation in TSH recommend increased Levothyroxine dose to 150mcg daily. This can be followed in the outpatient setting. Monitor blood pressure and continue on current regimen of Cozaar Overall patient appears to be medically stable. Recommend patient participate in unit activities. The hospitalist services will continue to follow patient medical management, stay on the [facility] unit. At time of discharge his medical care will return to primary care provider in [place], [place], Dr. Mirza Stevens 07/21/17 10:34 Pt doing well. Continue current care 07/21/17 15:57 Patient appears in acute fluid overload. Obtain stat CXR, EKG, and BNP now. Give metolazone, KCL x 1 now to diurese. Other differential could be an acute viral illness- May need to add steroids if does not appear to be fluid. Add nebulizer tx. Continue Symbicort. CKD, Baseline 1.7- continue current meds. Monitor on Losartan and KCL. Continue Lasix. Order Echo for Saturday AM. Synthroid was increased due to TSH of 11. It was noted to be 24.54 on 06/21/17. Plan to recheck in 4 weeks for stability with increase in Synthroid dosing. Repeat labs in AM. 07/22/17 Plan Serial troponins yesterday remained negative. Jhonatan has no complaints of chest pain or shortness of breath today He continues on chronic meds including- Aspirin, Plavix, Lipitor, isosorbide, and losartan. Continue on daily Lasix. Will ask nursing staff to weight patient daily without prosthetic leg for weight consistency CKD- [employer] is at baseline. Continue to follow closely Will discuss further with attending, Dr Gomez 07/22/17 10:19 D/C Abilify due to concern for weight gain and no clear indication for it 07/23/17 17:10 Will continue to monitor as Abilify has been stopped
--- NOTE | 2017-07-23 17:25 | Echocardiogram ---
DATE OF PROCEDURE July 23, 2017 This is a two-dimensional echo with spectral Doppler, color-flow and M-mode. It was obtained in a patient with cardiomyopathy. Left atrium is dilated. Left ventricular end-diastolic dimension is increased. Left ventricular wall thickness is increased. LV systolic function is reduced with septal and anterior akinesia with ejection fraction of 25%-30%. Right atrium is normal. Right ventricle is normal. Aortic root dimension is normal. Mitral valve is morphologically normal with mild mitral regurgitation. Aortic valve is a trileaflet structure with [id number]-[id number]-[id number] aortic insufficiency. Tricuspid valve shows mild tricuspid regurgitation with normal estimated pulmonary artery systolic pressure of 26. Pulmonary valve shows trace of pulmonary insufficiency. There is no pericardial effusion. IMPRESSION 1. Left ventricular dilation. 2. Left atrial dilation. 3. Concentric left ventricular hypertrophy. 4. Wall motion abnormalities as described above with ejection fraction of about 25%-30%. 5. Mild mitral regurgitation. 6. Kfri-wk-utcvompn aortic insufficiency. 7. Mild tricuspid regurgitation with normal estimated pulmonary artery systolic pressure of 26. 8. Trace of pulmonary insufficiency. MTDD
[2017-07-23] MEDS: TAMSULOSIN 0.4 MG CAPSULE PO SCH (17:48)
[2017-07-23] MEDS: RANITIDINE 150 MG TABLET PO SCH (17:48)
[2017-07-23] MEDS: FINASTERIDE 5 MG TABLET PO SCH (17:48)
[2017-07-23] MEDS: ATORVASTATIN 20 MG TABLET PO SCH (17:48)
[2017-07-24] MEDS: BENZOCAINE 20% ORAL GEL (Max Strength) MM PRN (06:00)
[2017-07-24] MEDS: ISOSORBIDE MONONITRATE ER 30 MG TABLET PO SCH (06:00)
[2017-07-24] MEDS: LEVOTHYROXINE 150 MCG TABLET PO SCH (06:00)
[2017-07-24] MEDS: GABAPENTIN 300 MG CAPSULE PO SCH ×2 (08:53→20:05)
[2017-07-24] MEDS: POLYETHYL GLYCOL 3350 17gm PACKET PO SCH (08:53)
[2017-07-24] MEDS: DOCUSATE SODIUM 100 MG CAPSULE PO SCH ×2 (08:53→20:05)
[2017-07-24] MEDS: LOSARTAN 50 MG TABLET PO SCH (08:54)
[2017-07-24] MEDS: MULTI-VITAMIN PLAIN TABLET PO SCH (08:54)
[2017-07-24] MEDS: CLOPIDOGREL 75 MG TABLET PO SCH (08:54)
[2017-07-24] MEDS: MIRABEGRON 25mg TABLET PO SCH (08:54)
[2017-07-24] MEDS: FUROSEMIDE 40 MG TABLET PO SCH (08:54)
[2017-07-24] MEDS: ASPIRIN *EC* 81 MG TABLET PO SCH (08:54)
[2017-07-24] MEDS: EYE LEFT EYE SCH ×10 (08:55→20:06)
[2017-07-24] MEDS: PREDNISOLONE 1% LEFT EYE SCH ×4 (08:55→20:05)
[2017-07-24] MEDS: OFLOXACIN 0.3% LEFT EYE SCH ×3 (08:55→20:05)
[2017-07-24] MEDS: DICLOFENAC 0.1% LEFT EYE SCH ×3 (08:56→20:06)
[2017-07-24] MEDS: [UNRECOGNIZED DRUG - OTHER] TOP SCH (08:56)
[2017-07-24] MEDS: VITAMINS A TOP SCH (08:56)
[2017-07-24] MEDS: RANITIDINE 150 MG TABLET PO SCH (17:01)
[2017-07-24] MEDS: FINASTERIDE 5 MG TABLET PO SCH (17:01)
[2017-07-24] MEDS: TAMSULOSIN 0.4 MG CAPSULE PO SCH (17:01)
[2017-07-24] MEDS: ATORVASTATIN 20 MG TABLET PO SCH (17:01)
--- NOTE | 2017-07-24 17:13 | Neuropsych Progress Note ---
[facility] Subjective Date: 07/24/17 - Sujective/Severity of Illness Medications: Acetaminophen/Hydrocodone Bitart ([place] 5/325) 1 tab PO Q4H PRN PRN Reason: Pain Last Admin: 07/21/17 18:12 Dose: 1 tab Albuterol Sulfate (Proventil Neb (0.083%)) 2.5 mg AEROSOL Q4H PRN PRN Reason: Shortness of air Last Admin: 07/21/17 16:10 Dose: 2.5 mg Aspirin (Ecotrin) 81 mg PO DAILY [facility] Last Admin: 07/24/17 08:54 Dose: 81 mg Atorvastatin Calcium (Lipitor) 20 mg PO 1800 [facility] Last Admin: 07/24/17 17:01 Dose: 20 mg Benzocaine (Orajel) 1 applic MM QID PRN PRN Reason: Pain Last Admin: 07/24/17 06:00 Dose: 1 applic Bisacodyl (Dulcolax) 10 mg RECTALLY PRN PRN PRN Reason: Constipation Budesonide/Formoterol Fumarate (Symbicort Inhaler) 2 puff ORAL INH RTBID [facility] Last Admin: 07/23/17 19:45 Dose: 2 puff Cholecalciferol (Vit. D-3) 1,000 unit PO DAILY [facility] Last Admin: 07/24/17 08:54 Dose: 1,000 unit Clopidogrel Bisulfate (Plavix) 75 mg PO DAILY [facility] Last Admin: 07/24/17 08:54 Dose: 75 mg Diclofenac Sodium (Voltaren) 1 drop LEFT EYE TID [facility] Stop: 07/31/17 21:00 Last Admin: 07/24/17 14:56 Dose: 1 drop Docusate Sodium (Colace) 100 mg PO BID [facility] Last Admin: 07/24/17 08:53 Dose: 100 mg Finasteride (Proscar) 5 mg PO 1800 [facility] Last Admin: 07/24/17 17:01 Dose: 5 mg Furosemide (Lasix) 40 mg PO DAILY [facility] Last Admin: 07/24/17 08:54 Dose: 40 mg Gabapentin (Neurontin) 300 mg PO BID [facility] Last Admin: 07/24/17 08:53 Dose: 300 mg Haloperidol (Haldol) 0.5 mg PO Q6H PRN PRN Reason: Extreme agitation Haloperidol Lactate (Haldol) 0.5 mg IM Q6H PRN PRN Reason: Extreme agitation Isosorbide Mononitrate (Imdur) 30 mg PO ACB [facility] Last Admin: 07/24/17 06:00 Dose: 30 mg Levothyroxine Sodium (Synthroid) 150 mcg PO ACB [facility] Last Admin: 07/24/17 06:00 Dose: 150 mcg Lorazepam (Ativan) 0.5 mg PO Q6H PRN PRN Reason: Extreme agitation Lorazepam (Ativan Inj) 0.5 mg IM Q6H PRN PRN Reason: Extreme agitation Losartan Potassium (Cozaar) 25 mg PO DAILY [facility] Last Admin: 07/24/17 08:54 Dose: 25 mg Mirabegron (Myrbetriq) 50 mg PO DAILY [facility] Last Admin: 07/24/17 08:54 Dose: 50 mg Multivitamins (Theragran) 1 tab PO DAILY [facility] Last Admin: 07/24/17 08:54 Dose: 1 tab Nystatin (Mycostatin) 1 applic TP PRN PRN PRN Reason: Rash Ofloxacin (Ocuflox) 1 drop LEFT EYE TID [facility] Last Admin: 07/24/17 14:55 Dose: 1 drop Polyethylene Glycol (Miralax) 17 gm PO DAILY [facility] Last Admin: 07/24/17 08:53 Dose: 17 gm Potassium Chloride (K-Dur) 20 meq PO WB [facility] Last Admin: 07/24/17 08:54 Dose: 20 meq Prednisolone Acetate (Pred Forte) 1 drop LEFT EYE QID [facility] Stop: 07/30/17 21:00 Last Admin: 07/24/17 17:00 Dose: 1 drop Ranitidine HCl (Zantac) 150 mg PO 1800 [facility] Last Admin: 07/24/17 17:01 Dose: 150 mg Tamsulosin HCl (Flomax) 0.4 mg PO 1800 [facility] Last Admin: 07/24/17 17:01 Dose: 0.4 mg Thiamine HCl (Vitamin B-1) 100 mg PO DAILY [facility] Last Admin: 07/24/17 08:53 Dose: 100 mg Vitamin A/Vitamin D (Sween Cream) 1 applic TOP DAILY [facility] Last Admin: 07/24/17 08:56 Dose: 1 applic Subjective: Pt seen and chart examined. Nursing reports pt is doing well. Sleeping well and has a good appetite. No behaviors noted. On face to face the pt states he is doing well. He reports his mood is stable and he denies any S/I. Denies psychotic symptoms. Tolerating meds. Feels safe for D/C Start Time: 17:00 Stop Time: 17:15 Mental Status Exam Vitals: Last Vital Signs Temp 97.9 F 07/24/17 16:12 Pulse 92 07/24/17 16:12 Resp 16 07/24/17 16:12 BP 117/62 07/24/17 16:12 Pulse Ox 94 07/24/17 16:12 Height: 1.73 m Weight: 94.1 kg - Mental Status Exam Muscle Strength/Tone: Normal Dressing: Casual Grooming: Good Attitude: Cooperative Motor Activity: Retardation Eye Contact: Fair Speech: Slowed Volume: Soft Rhythm: Dysarthric Orientation: Oriented to person, Oriented to place Mood: Neutral Rate of Thoughts: Delayed Thought Organization: [place] Associations: Intact Abstract Reasoning: Poor abstract reasoning Thought Content: Normal Perception/Psychotic: Perception Normal Language: Naming Impaired Fund of Knowledge: Poor fund of knowledge Memory: Poor-immediate Suicidal Ideation: None Homicidal Ideation: None Insight: Poor Judgement: Poor Impulse Control: Poor - Laboratory Result Diagrams: 07/22/17 04:34 07/22/17 04:34 Assessment and Plan (1) Major neurocognitive disorder Problem details: with behavioral disturbance Current visit: Yes Status: Acute Hospital Course Summary Disclaimer: The visit summary below is not to be considered part of the above Progress Note. Hospital Course: 07/20/17 - Initial admission Impression Abnormal behaviors Schizophrenia Major depressive disorder Recent cataract surgery Hypertension Hypothyroidism hyperlipidemia BPH Chronic renal disease COPD S[place] PVD Plan Agree with admission to [facility] under the care of Dr. Freire for further psychiatric evaluation and treatment. Recommend continuing eyedrops as ordered. Given recent cataract surgery. Did review her extensive old records. Patient does have chronic renal disease and this appears to be his baseline creatinine. Creatinine in April was 1.8. Will continue to follow. Nursing staff did report patient had difficulty voiding this morning. He does have known history of BPH. Bladder scan as needed. Continue on chronic Flomax and finasteride. Given elevation in TSH recommend increased Levothyroxine dose to 150mcg daily. This can be followed in the outpatient setting. Monitor blood pressure and continue on current regimen of Cozaar Overall patient appears to be medically stable. Recommend patient participate in unit activities. The hospitalist services will continue to follow patient medical management, stay on the [facility] unit. At time of discharge his medical care will return to primary care provider in [place], Dr. Mirza Stevens 07/21/17 10:34 Pt doing well. Continue current care 07/21/17 15:57 Patient appears in acute fluid overload. Obtain stat CXR, EKG, and BNP now. Give metolazone, KCL x 1 now to diurese. Other differential could be an acute viral illness- May need to add steroids if does not appear to be fluid. Add nebulizer tx. Continue Symbicort. CKD, Baseline 1.7- continue current meds. Monitor on Losartan and KCL. Continue Lasix. Order Echo for Saturday AM. Synthroid was increased due to TSH of 11. It was noted to be 24.54 on 06/21/17. Plan to recheck in 4 weeks for stability with increase in Synthroid dosing. Repeat labs in AM. 07/22/17 Plan Serial troponins yesterday remained negative. Jhonatan has no complaints of chest pain or shortness of breath today He continues on chronic meds including- Aspirin, Plavix, Lipitor, isosorbide, and losartan. Continue on daily Lasix. 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 Continue to follow closely Will discuss further with attending, Dr Gomez 07/22/17 10:19 D/C Abilify due to concern for weight gain and no clear indication for it 07/23/17 Cardiology EKG 07/19: SR 80's RBBB and EKG 07/21: SR 79 RBBB which had showed some possible T wave changes/ischemic changes. Troponins negative x3. Discussed and reviewed EKG 's with Dr. Stahl. Noted no changes between EKG's and that both only showed NSR with RBBB. Acute dyspnea: CXR stable. No noted increased edema. Improved with extra diuresing. Con't daily lasix and breathing tx. Ordering Echo tomorrow. Cardiomyopathy BNP 07/22:1070. Con't current medication regimen statin, ASA, Imdur, Imdur & Cozaar. See Echo report HTN BP's stable. Con't Cozaar 25mg daily. CAD (coronary artery disease) S/p stent. Con't statin, ASA, Plavix & ARB. No BB, will con't to hold d/t COPD and recent respiratory distress. PAD (peripheral artery disease) Con't statin, ASA and Plavix. Hyperlipidemia Con't Atorvastatin 20mg daily and daily ASA 81mg daily. 07/24/17 17:12 PT doing well. Plan D/C for tomorrow
--- NOTE | 2017-07-24 17:21 | Discharge Instructions ---
Discharge Plan - Med Rec/Dispo Referrals/Follow Up: Mirza Stevens MD [Family Provider] - (Dr. Alber Stevens on [address] [place] [address]) Additional Instructions: Discharge Diagnosis: PTSD. Major Neurocognitive Disorder with Behavioral Disturbance Reasons for Admission: Demonstrating increased sexual behaviors, and symptoms of depression. IN CASE OF PSYCHIATRIC EMERGENCY, CONTACT [facility] STAFF AT [phone] ( available 24 hrs daily) Prescriptions: No Action Bisacodyl Supp [Dulcolax] 10 mg RECTALLY PRN PRN PRN Reason: Constipation Gabapentin 300 mg PO BID raNITIdine HCl [Ranitidine HCl] 150 mg PO 1800 Thiamine HCl 100 mg PO DAILY Levothyroxine Sodium 125 mcg PO 0630 Potassium Chloride [K-Tab ER] 20 meq PO DAILY Multivitamin [One Daily Multivitamin] 1 each PO DAILY Losartan Potassium 25 mg PO DAILY Furosemide [Lasix] 1 tab PO DAILY Tamsulosin [Flomax] 0.4 mg PO 1800 Cholecalciferol [Vit. D-3] 1 tab PO DAILY Atorvastatin Calcium 20 mg PO 1800 prednisoLONE acetate [Prednisolone Acetate] 1 drop LEFT EYE QID Diclofenac [Voltaren] 1 drop LEFT EYE TID Sween 24 1 applic TOP DAILY Triple Antibiotic Ointment TOP BID Hydrocodone/Acetaminophen [Hydrocodon-Acetaminophen 5-325] 1 tab PO Q4H PRN PRN Reason: Pain Ofloxacin [Ocuflox] 1 drop LEFT EYE TID Docusate Sodium [Colace] 1 cap PO BID Finasteride [Proscar] 5 mg PO 1800 Polyethylene Glycol 3350 [Miralax] 17 gm PO DAILY Mirabegron [Myrbetriq] 50 mg PO DAILY Isosorbide Mononitrate ER [Imdur] 30 mg PO DAILY Clopidogrel Bisulfate [Clopidogrel] 75 mg PO DAILY Aspirin *EC* [Ecotrin] 1 tab PO DAILY Nystatin Powder [Mycostatin] 1 applic TOP PRN PRN PRN Reason: Rash
--- NOTE | 2017-07-24 17:29 | Discharge Instructions ---
Discharge Plan - Med Rec/Dispo Referrals/Follow Up: Mirza Stevens MD [Family Provider] - (Dr. Alber Stevens on [address] [place] [address]) Additional Instructions: Discharge Diagnosis: PTSD. Major Neurocognitive Disorder with Behavioral Disturbance Reasons for Admission: Demonstrating increased sexual behaviors, and symptoms of depression. IN CASE OF PSYCHIATRIC EMERGENCY, CONTACT GENERATIONS STAFF AT [phone] ( available 24 hrs daily) Prescriptions: No Action Bisacodyl Supp [Dulcolax] 10 mg RECTALLY PRN PRN PRN Reason: Constipation Gabapentin 300 mg PO BID raNITIdine HCl [Ranitidine HCl] 150 mg PO 1800 Thiamine HCl 100 mg PO DAILY Levothyroxine Sodium 125 mcg PO 0630 Potassium Chloride [K-Tab ER] 20 meq PO DAILY Multivitamin [One Daily Multivitamin] 1 each PO DAILY Losartan Potassium 25 mg PO DAILY Furosemide [Lasix] 1 tab PO DAILY Tamsulosin [Flomax] 0.4 mg PO 1800 Cholecalciferol [Vit. D-3] 1 tab PO DAILY Atorvastatin Calcium 20 mg PO 1800 prednisoLONE acetate [Prednisolone Acetate] 1 drop LEFT EYE QID Diclofenac [Voltaren] 1 drop LEFT EYE TID Sween 24 1 applic TOP DAILY Triple Antibiotic Ointment TOP BID Hydrocodone/Acetaminophen [Hydrocodon-Acetaminophen 5-325] 1 tab PO Q4H PRN PRN Reason: Pain Ofloxacin [Ocuflox] 1 drop LEFT EYE TID Docusate Sodium [Colace] 1 cap PO BID Finasteride [Proscar] 5 mg PO 1800 Polyethylene Glycol 3350 [Miralax] 17 gm PO DAILY Mirabegron [Myrbetriq] 50 mg PO DAILY Isosorbide Mononitrate ER [Imdur] 30 mg PO DAILY Clopidogrel Bisulfate [Clopidogrel] 75 mg PO DAILY Aspirin *EC* [Ecotrin] 1 tab PO DAILY Nystatin Powder [Mycostatin] 1 applic TOP PRN PRN PRN Reason: Rash Discharge Instructions/Outpatient Orders: Final Provider Discharge Instructions Location: Determined By Patient - Disposition 04 To [facility] Home/Facility
--- NOTE | 2017-07-24 17:34 | Extended Care Facility Orders ---
Admission Orders Admit to:: Other Allergies/Adverse Reactions: Allergies No Known Allergies Allergy (Verified 07/19/17 18:04) Admitting Diagnosis: Unspec neuro cognitive disorder w/behavior disturb Admitting Physician: Deni Freire MD Attending Physician: Deni Freire MD Code Status: Full Code Anticiapted Length of Stay: greater than 30 days Rehab Potential: fair Rehab Prognosis: fair Diet: 07/20/17 Breakfast Regular Diet [DIET] Diet Modifications: 2000 Calories Other Diet Modifiers: CALCOUNT May use Facility Protocol or Standing Orders: Yes May have flu vaccine: Yes Evaluations/Treatment: as needed [facility] Certification: I certify that SNF services are required to be given on an Inpatient basis because of the patients need for ch[facility] care on a continuing basis for the condition(s) for which he/she received inpatient hospital services prior to his/her transfer to the SNF. SNF inpatient care is necessary for the following reasons Indication for [facility]: Not Applicable - Additional Information In Event of Arrest: Start CPR,call 911,send patient to the ER Resident is Aware of Diagnosis: Yes Referrals: Mirza Stevens MD [Family Provider] - (Dr. Alber Stevens on [address] [place] [address])
[2017-07-24 20:08] VITALS: RESP 20; O2SAT 93
[2017-07-25] MEDS: BENZOCAINE 20% ORAL GEL (Max Strength) MM PRN ×2 (03:00→04:48)
[2017-07-25] MEDS: LEVOTHYROXINE 150 MCG TABLET PO SCH (06:22)
[2017-07-25] MEDS: ISOSORBIDE MONONITRATE ER 30 MG TABLET PO SCH (06:22)
[2017-07-25] MEDS: DOCUSATE SODIUM 100 MG CAPSULE PO SCH (08:15)
[2017-07-25] MEDS: LOSARTAN 50 MG TABLET PO SCH (08:15)
[2017-07-25] MEDS: FUROSEMIDE 40 MG TABLET PO SCH (08:16)
[2017-07-25] MEDS: POLYETHYL GLYCOL 3350 17gm PACKET PO SCH (08:16)
[2017-07-25] MEDS: GABAPENTIN 300 MG CAPSULE PO SCH (08:16)
[2017-07-25] MEDS: MIRABEGRON 25mg TABLET PO SCH (08:16)
[2017-07-25] MEDS: ASPIRIN *EC* 81 MG TABLET PO SCH (08:16)
[2017-07-25 08:17] VITALS: BP 131/66; PULSE 101; TEMP 97.4
[2017-07-25] MEDS: PREDNISOLONE 1% LEFT EYE SCH ×2 (08:17→13:18)
[2017-07-25] MEDS: EYE LEFT EYE SCH ×4 (08:17→13:18)
[2017-07-25] MEDS: CLOPIDOGREL 75 MG TABLET PO SCH (08:17)
[2017-07-25] MEDS: OFLOXACIN 0.3% LEFT EYE SCH (08:17)
[2017-07-25] MEDS: [UNRECOGNIZED DRUG - OTHER] TOP SCH (08:18)
[2017-07-25] MEDS: VITAMINS A TOP SCH (08:18)
[2017-07-25] MEDS: MULTI-VITAMIN PLAIN TABLET PO SCH (08:18)
[2017-07-25] MEDS: DICLOFENAC 0.1% LEFT EYE SCH (08:19)
--- NOTE | 2017-07-25 11:04 | Discharge Instructions ---
Discharge Plan - Med Rec/Dispo Referrals/Follow Up: Lizzette Wilson [Provider Group] (Patient will be seen on rounds for Mental Health follow-up. ) Mirza Stevens MD [Family Provider] - (Dr. Alber Stevens on 08/05/17 at 11:00 am for Hosp. follow-up. [facility] [place] [address]) Additional Instructions: Discharge Diagnosis: PTSD. Major Neurocognitive Disorder with Behavioral Disturbance Reasons for Admission: Demonstrating increased sexual behaviors, and symptoms of depression. IN CASE OF PSYCHIATRIC EMERGENCY, CONTACT GENERATIONS STAFF AT [phone] ( available 24 hrs daily) Medical Consultation/follow up recommendations: 1. TSH was 11 (improving from previous, which was 24) - continue Synthroid at routine dose and f/u with PCP for a recheck/further adjustments. 2. He was dyspneic initially and responded well to nebulized albuterol. Echo showed an EF of 25-30%, LVH, mild valvular disease. Please f/u with risk investigator. 3. Albuterol was added PRN to his med list. 4. He continues on ofloxacin eye drops tid - please f/u with PCP regarding duration. Prescriptions: New Albuterol Neb (0.083%) [Proventil Neb (0.083%)] 2.5 mg AEROSOL Q4H PRN neb PRN Reason: Shortness Of Air Continue Bisacodyl Supp [Dulcolax] 10 mg RECTALLY PRN PRN PRN Reason: Constipation Gabapentin 300 mg PO BID raNITIdine HCl [Ranitidine HCl] 150 mg PO 1800 Thiamine HCl 100 mg PO DAILY Levothyroxine Sodium 125 mcg PO 0630 Potassium Chloride [K-Tab ER] 20 meq PO DAILY Multivitamin [One Daily Multivitamin] 1 each PO DAILY Losartan Potassium 25 mg PO DAILY Furosemide [Lasix] 1 tab PO DAILY Tamsulosin [Flomax] 0.4 mg PO 1800 Cholecalciferol [Vit. D-3] 1 tab PO DAILY Atorvastatin Calcium 20 mg PO 1800 prednisoLONE acetate [Prednisolone Acetate] 1 drop LEFT EYE QID Diclofenac [Voltaren] 1 drop LEFT EYE TID Sween 24 1 applic TOP DAILY Triple Antibiotic Ointment TOP BID Hydrocodone/Acetaminophen [Hydrocodon-Acetaminophen 5-325] 1 tab PO Q4H PRN PRN Reason: Pain Ofloxacin [Ocuflox] 1 drop LEFT EYE TID Docusate Sodium [Colace] 1 cap PO BID Finasteride [Proscar] 5 mg PO 1800 Polyethylene Glycol 3350 [Miralax] 17 gm PO DAILY Mirabegron [Myrbetriq] 50 mg PO DAILY Isosorbide Mononitrate ER [Imdur] 30 mg PO DAILY Clopidogrel Bisulfate [Clopidogrel] 75 mg PO DAILY Aspirin *EC* [Ecotrin] 1 tab PO DAILY Nystatin Powder [Mycostatin] 1 applic TOP PRN PRN PRN Reason: Rash Discharge Instructions/Outpatient Orders: Final Provider Discharge Instructions Location: Determined By Patient - Disposition 04 To [facility] Home/Facility
--- NOTE | 2017-08-26 11:59 | Neuropsychiatric Disch Summary ---
Discharge Information Date of admission: 07/19/17 18:50 Attending Physician: Deni Freire MD Primary care physician: Mirza Stevens MD Consults: 07/22/17 10:33 Physician Consult [CONS] Routine Consulting Provider: Jose C Stahl Reason For Exam: abnormal ekg, probable cardiomyopathy Ordering Provider has Notified Regulatory Compliance Manager: Yes Comment: INSTRUCTOR OF EDUCATION notified - Discharge Diagnosis (1) Major neurocognitive disorder Status: Acute - Laboratory Labs: 07/22/17 04:34 07/22/17 04:34 Date of Admission: 07/19/17 18:50 History of Present Illness: HPI: 56 Y/O CM sent from [facility] for increasing bizarre behavior. PT reportedly had been talking to a female peer about getting and having intercourse. Staff reportedly the pt was seen in the middle of the night sitting on this residents bed. On face to face the pt states he is doing well. He states he does not remember being in a peers room and had no intention of harming anyone. He voices no concerns at this time. STRESSORS: Pt states staff at the [facility] are accusing him of "touching" a peer which is stressful. PSYCH ROS: Pt states his mood is stable. He denies feeling depressed. He reports sleeping well and having a good appetite. He denies jonathan or psychosis. PT scored a 15 on the SLUMS. PAST PSYCH: Pt states he has never seen a psychiatrist and has never tried to harm himself. He carries a dx of Schizophrenia and MDD. Hospital Course This is a general summary of the patient's hospital course. For more details refer to the complete medical record. Hospital course: 07/20/17 - Initial admission Impression Abnormal behaviors Schizophrenia Major depressive disorder Recent cataract surgery Hypertension Hypothyroidism hyperlipidemia BPH Chronic renal disease COPD SABAS PVD Plan Agree with admission to [facility] under the care of Dr. Freire for further psychiatric evaluation and treatment. Recommend continuing eyedrops as ordered. Given recent cataract surgery. Did review her extensive old records. Patient does have chronic renal disease and this appears to be his baseline creatinine. Creatinine in April was 1.8. Will continue to follow. Nursing staff did report patient had difficulty voiding this morning. He does have known history of BPH. Bladder scan as needed. Continue on chronic Flomax and finasteride. Given elevation in TSH recommend increased Levothyroxine dose to 150mcg daily. This can be followed in the outpatient setting. Monitor blood pressure and continue on current regimen of Cozaar Overall patient appears to be medically stable. Recommend patient participate in unit activities. The hospitalist services will continue to follow patient medical management, stay on the [facility] unit. At time of discharge his medical care will return to primary care provider in [place], [place], Dr. Mirza Stevens 07/21/17 10:34 Pt doing well. Continue current care 07/21/17 15:57 Patient appears in acute fluid overload. Obtain stat CXR, EKG, and BNP now. Give metolazone, KCL x 1 now to diurese. Other differential could be an acute viral illness- May need to add steroids if does not appear to be fluid. Add nebulizer tx. Continue Symbicort. CKD, Baseline 1.7- continue current meds. Monitor on Losartan and KCL. Continue Lasix. Order Echo for Saturday AM. Synthroid was increased due to TSH of 11. It was noted to be 24.54 on 06/21/17. Plan to recheck in 4 weeks for stability with increase in Synthroid dosing. Repeat labs in AM. 07/22/17 Plan Serial troponins yesterday remained negative. Jhonatan has no complaints of chest pain or shortness of breath today He continues on chronic meds including- Aspirin, Plavix, Lipitor, isosorbide, and losartan. Continue on daily Lasix. 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 Continue to follow closely Will discuss further with attending, Dr Gomez 07/22/17 10:19 D/C Abilify due to concern for weight gain and no clear indication for it 07/23/17 Cardiology EKG 07/19: SR 80's RBBB and EKG 07/21: SR 79 RBBB which had showed some possible T wave changes/ischemic changes. Troponins negative x3. Discussed and reviewed EKG 's with Dr. Stahl. Noted no changes between EKG's and that both only showed NSR with RBBB. Acute dyspnea: CXR stable. No noted increased edema. Improved with extra diuresing. Con't daily lasix and breathing tx. Ordering Echo tomorrow. Cardiomyopathy BNP 07/22:1070. Con't current medication regimen statin, ASA, Imdur, Imdur & Cozaar. See Echo report HTN BP's stable. Con't Cozaar 25mg daily. CAD (coronary artery disease) S/p stent. Con't statin, ASA, Plavix & ARB. No BB, will con't to hold d/t COPD and recent respiratory distress. PAD (peripheral artery disease) Con't statin, ASA and Plavix. Hyperlipidemia Con't Atorvastatin 20mg daily and daily ASA 81mg daily. Time spent with patient: less than 15 minutes Discharge Plan - Med Rec/Dispo Referrals/Follow Up: Lizzette Wilson [Provider Group] (Patient will be seen on rounds for Mental Health follow-up. ) Mirza Stevens MD [Family Provider] - (Dr. Alber Stevens on 08/05/17 at 11:00 am for Hosp. follow-up. [address] [place] [address]) Additional Instructions: Discharge Diagnosis: PTSD. Major Neurocognitive Disorder with Behavioral Disturbance Reasons for Admission: Demonstrating increased sexual behaviors, and symptoms of depression. IN CASE OF PSYCHIATRIC EMERGENCY, CONTACT GENERATIONS STAFF AT [phone] ( available 24 hrs daily) Medical Consultation/follow up recommendations: 1. TSH was 11 (improving from previous, which was 24) - continue Synthroid at routine dose and f/u with PCP for a recheck/further adjustments. 2. He was dyspneic initially and responded well to nebulized albuterol. Echo showed an EF of 25-30%, LVH, mild valvular disease. Please f/u with press feeder broomcorn. 3. Albuterol was added PRN to his med list. 4. He continues on ofloxacin eye drops tid - please f/u with PCP regarding duration. Prescriptions: New Albuterol Neb (0.083%) [Proventil Neb (0.083%)] 2.5 mg AEROSOL Q4H PRN neb PRN Reason: Shortness Of Air Continue Bisacodyl Supp [Dulcolax] 10 mg RECTALLY PRN PRN PRN Reason: Constipation Gabapentin 300 mg PO BID raNITIdine HCl [Ranitidine HCl] 150 mg PO 1800 Thiamine HCl 100 mg PO DAILY Levothyroxine Sodium 125 mcg PO 0630 Potassium Chloride [K-Tab ER] 20 meq PO DAILY Multivitamin [One Daily Multivitamin] 1 each PO DAILY Losartan Potassium 25 mg PO DAILY Furosemide [Lasix] 1 tab PO DAILY Tamsulosin [Flomax] 0.4 mg PO 1800 Cholecalciferol [Vit. D-3] 1 tab PO DAILY Atorvastatin Calcium 20 mg PO 1800 prednisoLONE acetate [Prednisolone Acetate] 1 drop LEFT EYE QID Diclofenac [Voltaren] 1 drop LEFT EYE TID Sween 24 1 applic TOP DAILY Triple Antibiotic Ointment TOP BID Hydrocodone/Acetaminophen [Hydrocodon-Acetaminophen 5-325] 1 tab PO Q4H PRN PRN Reason: Pain Ofloxacin [Ocuflox] 1 drop LEFT EYE TID Docusate Sodium [Colace] 1 cap PO BID Finasteride [Proscar] 5 mg PO 1800 Polyethylene Glycol 3350 [Miralax] 17 gm PO DAILY Mirabegron [Myrbetriq] 50 mg PO DAILY Isosorbide Mononitrate ER [Imdur] 30 mg PO DAILY Clopidogrel Bisulfate [Clopidogrel] 75 mg PO DAILY Aspirin *EC* [Ecotrin] 1 tab PO DAILY Nystatin Powder [Mycostatin] 1 applic TOP PRN PRN PRN Reason: Rash Discharge Instructions/Outpatient Orders: Final Provider Discharge Instructions Location: Determined By Patient - Disposition 04 To [facility] Home/Facility
== END 2017-07-25 14:00 | DRG 885 ==
LOC: ED 17:52 → GEN 18:45
PROVIDERS: ADMIT Psychiatry & Neurology Psychiatry; ATTEND Psychiatry & Neurology Psychiatry

== ENCOUNTER 2018-03-06 12:14 | Inpatient (IN) ==
[2018-03-06 14:26] VITALS: BMI 35.0
[2018-03-06] MEDS ORDERED: ADENOSINE 6mg/2ml INJECTION IVP ONE ×2 (16:02→16:06)
[2018-03-06] MEDS ORDERED: HEPARIN - PHARMACY CONSULT MC ONE (16:17)
--- NOTE | 2018-03-06 16:29 | XRay Report ---
Indication: Rapid response PROCEDURE: XR chest 1V: Encounter: Initial Comparison: July 21, 2017 Findings: Hazy airspace opacities in both lungs, greater on the right. No lobar consolidation. No pneumothorax seen on this supine view. Cardiac silhouette is mildly enlarged. Mediastinal contours are grossly stable. Impression: 1. Mild pulmonary edema. 2. Mild enlargement of the cardiac silhouette could be due to cardiomegaly or pericardial effusion. .
--- NOTE | 2018-03-06 16:34 | Cardiology History & Physical ---
History of Present Illness Chief complaint: SOA HPI: Mirza is a 57 year old male who is known to Dr. Stahl's practice with a history of schizophrenia who resides at [facility]. He reports respiratory distress and severe SOA which he woke up with yesterday. He states he has been telling the staff and no one would believe him until today. He reports dizziness and near syncope but denies chest pain or pressure, palpitations, N/V. His history is gathered from patient's medications and what he and family are able to report. He states that he has had a coronary stent with one , but that he is unsure of what chair he has followed with in the past. Besides schizophrenia and hypothyroidism & CKD he also has a h/o stroke, COPD, HTN, cardiomyopathy, CAD with PCI, & PAD with SHANNON ANDUJAR. He is examined in his room on the Surgical unit where he is in mild distress, on O2 at 4L/NC, c/o SOA. He denies chest pain or palpitations despite HR in the 130-140s on monitor. Radial pulse is about half of rate of the rate on the monitor. He denies recent illness, fever chills, sore throat, cough, N/V/D, dysuria. Review of Systems - Constitutional Constitutional: Present: as per HPI - EENMT Eyes: Absent: change in vision Balance: Absent: vertigo Mouth/Throat: Present: as per HPI - Cardiovascular Cardiovascular: Present: dyspnea on exertion, orthopnea, edema. Absent: chest pain, palpitations Vascular: Present: pedal edema - Respiratory Respiratory: Present: dyspnea. Absent: cough - Gastrointestinal Gastrointestinal: Present: as per HPI. Absent: abdominal pain - Genitourinary Genitourinary: Present: as per HPI - Integumentary/Breasts Integumentary: Absent: rash - Neurological Neurological: Absent: dizziness - Endocrine Endocrine: Absent: palpitations PFSH Patient Stated Medical History Cerebrovascular Accident Yes: 5 years ago Cataracts Yes Dental Problems Yes Heart Murmur Yes Hypertension Yes Myocardial Infarction Yes Bronchitis Yes Chronic Obstructive Pulmonary Yes Disease (COPD) Sleep Apnea Yes Other Respiratory Yes: HX ARDS Gastroesophageal Reflux Yes Disease Hx Benign Prostatic Yes Hyperplasia Hx Renal Disease Yes Cellulitis Yes: left lower leg Other Infectious Yes: gangrene left lower leg Blood Transfusions Yes Depression Yes Schizophrenia Yes Surgical History: Left above the knee amputation. cataract surgery- Left () Family History: Mother - [place] - Social History Smoking status: Former smoker Substance use type: does not use Alcohol intake frequency: does not drink Housing: [facility]pc Household members: caregiver, other service: No Current occupational status: disabled Current occupational exposures/hazards: No Does patient use chewing tobacco?: No Current residence: [facility] Medications Home Medications Medication Instructions Recorded Confirmed Type Aspirin *EC* [Ecotrin] 1 tab PO DAILY 07/19/17 03/06/18 History Atorvastatin Calcium 20 mg PO 1800 07/19/17 03/06/18 History Clopidogrel Bisulfate [Clopidogrel] 75 mg PO DAILY 07/19/17 03/06/18 History Docusate Sodium [Colace] 1 cap PO BID 07/19/17 03/06/18 History Finasteride [Proscar] 5 mg PO 1800 07/19/17 03/06/18 History Furosemide [Lasix 40 mg Tab] 1 tab PO DAILY 07/19/17 03/06/18 History Gabapentin 300 mg PO BID 07/19/17 03/06/18 History Isosorbide Mononitrate ER [Imdur] 30 mg PO DAILY 07/19/17 03/06/18 History Levothyroxine Sodium 125 mcg PO [id number]@0630 07/19/17 03/06/18 History Losartan Potassium 25 mg PO DAILY 07/19/17 03/06/18 History Mirabegron [Myrbetriq] 50 mg PO DAILY 07/19/17 03/06/18 History Multivitamin [One Daily 1 each PO DAILY 07/19/17 03/06/18 History Multivitamin] Polyethylene Glycol 3350 [Miralax] 17 gm PO DAILY 07/19/17 03/06/18 History Potassium Chloride [K-Tab ER] 20 meq PO DAILY 07/19/17 03/06/18 History Tamsulosin [Flomax] 0.4 mg PO 1800 07/19/17 03/06/18 History raNITIdine HCl [Ranitidine HCl] 150 mg PO 1800 07/19/17 03/06/18 History Acetaminophen [Tylenol] 325 mg PO Q4H PRN 03/06/18 03/06/18 History Budesonide/Formoterol Fumarate 2 puff INH BID 03/06/18 03/06/18 History [Symbicort 160-4.5 Mcg Inhaler] Levothyroxine Tab [Synthroid] 250 mcg PO [id number]@0630 03/06/18 03/06/18 History Allergies Allergy/AdvReac Type Severity Reaction Status Date / Time No Known Allergies Allergy Verified 07/19/17 18:04 Exam Vital signs: Temperature 98.1 F 03/06/18 14:30 Pulse Rate 137 H 03/06/18 14:30 Respiratory Rate 24 03/06/18 14:30 Blood Pressure 123/76 03/06/18 14:30 Pulse Oximetry 97 03/06/18 14:30 - Constitutional mild distress, obese, cooperative - Routine HEENT Exam Head: Present: normocephalic ENT: Present: mucous membranes dry - Routine Neck Exam Absent: carotid bruit - Routine Chest/Breast/Axilla Exam Chest wall: Absent: tenderness - Routine Respiratory Exam Present: dyspnea, rales (bibasilar), diminished air movement. Absent: wheezes - Routine Cardiovascular Exam Present: RRR, no murmur - Routine Abdominal Exam Present: soft, normoactive bowel sounds - Routine Extremities Exam Present: edema - Routine Skin Exam Present: intact, dry, warm - Routine Neurological Exam Present: alert, oriented X3 - Routine Psychiatric Exam Present: normal affect Results 03/10/18 07:11 03/10/18 07:11 Cardiac Enzymes 03/06/18 Range/Units 15:02 Troponin I 0.239 H (0-0.12) ng/ml Intake and Output 03/06/18 03/06/18 03/06/18 06:59 14:59 22:59 Other: Weight 230 lb 9.656 oz Patient Weight 03/07/18 06:59 Weight 230 lb 9.656 oz - Imaging and Cardiology Imaging & Cardiology Narrative: Date of Exam: 03/06/18 Ordering Provider: Jose C Stahl MD Type of Exam(s): XR chest 1V Reason for Exam(s): Rapid response Indication: Rapid response PROCEDURE: XR chest 1V: Encounter: Initial Comparison: July 21, 2017 Findings: Hazy airspace opacities in both lungs, greater on the right. No lobar consolidation. No pneumothorax seen on this supine view. Cardiac silhouette is mildly enlarged. Mediastinal contours are grossly stable. Impression: 1. Mild pulmonary edema. 2. Mild enlargement of the cardiac silhouette could be due to cardiomegaly or pericardial effusion. 03/07/18 10:16 EKG interpretations - Dysrhythmias Sinus rhythms and dysrhythmias: sinus tachycardia (HR 172) - Blocks, axis, hypertrophy, ST abn AV and intraventricular conduction: left bundle branch block (fixed/intermittent , complete/incomplete) Hospital Course This is a general summary of the patient's hospital course. For more details refer to the complete medical record. Time spent with patient: 25 - 35 minutes Resuscitation Status: Full Code Assessment and Plan - Attestation Attestation Narrative: 03/10/18 16:25 Recommendation After examining the patient I agree with the above assessment. I am involved in the formulation of the patient's plan of care. - Assessment and Plan (1) NSTEMI (non-ST elevated myocardial infarction) Current visit: Yes Status: Acute Trend troponin 1) 0.239, 2) 0.236, 3)0.320 (2) SVT (supraventricular tachycardia) Current visit: Yes Status: Acute Amiodarone bolus and drip - EKG in am - Heparin drip (3) Acute dyspnea Current visit: Yes Status: Acute Presented from [facility] on 4l/NC - reduced to 3L/NC by RN - Reported acute dyspnea but O2 sats stable - Chest xray shows mild pulmonary edema - Bumex 3mg IVP then 0.5mg/ hr drip (4) Acute systolic CHF (congestive heart failure) Current visit: Yes Status: Acute Stat Echo: EF 10-15%, severe MR/ TR - Chest xray shows mild pulmonary edema - Bumex 3mg IVP then 0.5mg/ hr drip - BNP 95059 (5) Cardiomyopathy Current visit: No Status: Chronic Stat Echo: EF 10-15%, severe MR/ TR (6) HTN (hypertension) Current visit: No Status: Chronic (7) CAD (coronary artery disease) Current visit: No Status: Chronic (8) CKD (chronic kidney disease) Current visit: No Status: Chronic BUN 28/SCr 1.98 (base line 1.8) (9) Hyperlipidemia Current visit: No Status: Acute
[2018-03-06] MEDS: BUMETANIDE DRIP 25 MG in CONTAINER,EMPTY 100 ML IV SCH (17:04)
[2018-03-06] MEDS ORDERED: HEPARIN 1,000unit/ml INJECTION 10ml IVP ONE ×2 (17:04→22:04)
[2018-03-06] MEDS ORDERED: HEPARIN DRIP 20,000 UNIT/500 ML BAG IV SCH (17:05)
[2018-03-06] MEDS ORDERED: AMIODARONE 150 MG in NS 100 ML IV ONE (18:20)
[2018-03-06] MEDS ORDERED: ACETAMINOPHEN 325 MG TABLET PO PRN (18:27)
[2018-03-06] MEDS ORDERED: ONDANSETRON 4 MG/2 ML INJECTION IVP PRN (18:28)
[2018-03-06] MEDS ORDERED: AMIODARONE 450 MG in NS 250ml 250 ML IV SCH (18:30)
--- NOTE | 2018-03-06 18:49 | Pharmacy Consult ---
Pharmacy Consult-Heparin - Laboratory Information Heparin Plt Count 161 T/MM3 (130-400) 03/06/18 17:26 APTT Cancelled 03/06/18 17:30 - Consult Information HEPARIN CONSULT (Initial): Dx: Increased troponin Baseline PTT = Result drawn after heparin bolus given. Baseline platelet count = 161 T/mm3. PTT Target Range = 50-75 Will give Heparin Bolus of 6,000units, start Heparin Drip at 1200 units/hr (30ml /hr). Heparin 20,000 units in D5W 500ml. We will continue to monitor and make adjustments accordingly. Thank you.
[2018-03-07] MEDS: AMIODARONE 900 MG in NS 500ml 500 ML IV SCH (02:11)
[2018-03-07] MEDS: MIRABEGRON 25mg TABLET PO SCH (08:36)
[2018-03-07] MEDS: ASPIRIN *EC* 81 MG TABLET PO SCH (08:36)
[2018-03-07] MEDS: CLOPIDOGREL 75 MG TABLET PO SCH (08:36)
[2018-03-07] MEDS ORDERED: HEPARIN 1,000unit/ml INJECTION 10ml IVP ONE (09:00)
[2018-03-07] MEDS ORDERED: HEPARIN DRIP 20,000 UNIT/500 ML BAG IV SCH (09:00)
--- NOTE | 2018-03-07 09:00 | Pharmacy Consult ---
Pharmacy Consult-Heparin - Laboratory Information Heparin Plt Count 183 T/MM3 (130-400) 03/07/18 03:20 APTT 38.2 SEC (24-36) H 03/07/18 06:38 - Consult Information HEPARIN CONSULT (Recurring): PTT = 38.2 Sec. Platelet count = 183 T/mm3. Will adjust Heparin Drip to 1400 units/hr (35 ml/hr). Will recheck PTT and adjust regimen as needed. Thank you.
--- NOTE | 2018-03-07 10:39 | Cardiology Progress Note ---
<Kylee Richards M - Last Filed: 03/07/18 17:08> Subjective Principal diagnosis: SCHF, NSTEMI Interval history: Mirza is seen in follow up for SCHF and NSTEMI. He is in his room in CCU, on 2L/ NC, in no distress. He was transferred after rapid response was called due to VT / VF seen by RN on telemetry. With Dr. Stahl at the bedside he was given 6mg Adenosine, followed by 12mg Adenosine, sedated with Versed and Fentanyl and cardioverted with 360J into ST, HR 120-130s. He does not recall the episode and asks if his heart stopped. He denies chest pain, palpitations, dizziness or nausea. Exam Vital signs: Temperature 98.4 F 03/07/18 08:00 Pulse Rate 107 H 03/07/18 08:00 Respiratory Rate 27 H 03/07/18 08:00 Blood Pressure 115/64 03/07/18 08:00 Pulse Oximetry 98 03/07/18 08:00 Inpatient Medications: Generic Name Dose Route Start Last Admin Trade Name Freq PRN Reason Stop Dose Admin Acetaminophen 650 mg 03/06/18 18:27 Tylenol PO Q5H PRN Pain Aspirin 81 mg 03/07/18 09:00 03/07/18 08:36 Ecotrin PO 81 mg DAILY WILLAM Administration Clopidogrel Bisulfate 75 mg 03/07/18 09:00 03/07/18 08:36 Plavix PO 75 mg DAILY WILLAM Administration Bumetanide 25 mg/ IV Solution 100 mls @ 2 mls/hr 03/06/18 16:15 03/07/18 10: 00 IV 2 mls/hr Q24H WILLAM Infusion Amiodarone HCl 900 mg/ Sodium 500 mls @ 16.66 mls/hr 03/07/18 00:31 03/07/18 08:40 Chloride IV Infused .Q24H WILLAM Infusion 0.5 MG/MIN Heparin Sodium (Porcine) 20,000 unit in 500 mls @ 35 mls/hr 03/07/18 09:00 09:19 Heparin Drip IV Not Given .[id number] WILLAM Protocol 1,400 UNIT/HR Mirabegron 50 mg 03/07/18 09:00 03/07/18 08:36 Myrbetriq PO 50 mg DAILY WILLAM Administration Ondansetron HCl 4 mg 03/06/18 18:28 Zofran IVP Q6H PRN Nausea &/or vomiting Tramadol HCl 50 mg 03/06/18 18:28 Ultram PO Q6H PRN Pain Discontinued Medications Generic Name Dose Route Start Last Admin Trade Name Freq PRN Reason Stop Dose Admin Adenosine 6 mg 03/06/18 16:02 03/06/18 16:02 Adenocard IVP 03/06/18 16:03 6 mg O ONE Administration Adenosine 12 mg 03/06/18 16:06 03/06/18 16:06 Adenocard IVP 03/06/18 16:07 12 mg O ONE Administration Bumetanide 1 mg 03/06/18 16:09 03/06/18 18:08 Bumex 1 Mg/4 Ml Inj. IVP 03/06/18 16:10 1 mg O ONE Administration Bumetanide 1 mg 03/06/18 16:10 03/06/18 18:09 Bumex 1 Mg/4 Ml Inj. IVP 03/06/18 16:11 1 mg O ONE Administration Bumetanide 1 mg 03/06/18 16:11 03/06/18 16:11 Bumex 1 Mg/4 Ml Inj. IVP 03/06/18 16:12 1 mg O ONE Administration Heparin Sodium (Beef Lung) 6,000 unit 03/06/18 17:04 03/06/18 17:22 Heparin Bolus IVP 03/06/18 17:05 6,000 unit O ONE Administration Heparin Sodium (Beef Lung) 5,000 unit 03/06/18 22:04 03/06/18 22:10 Heparin Bolus IVP 03/06/18 22:05 5,000 unit O ONE Administration Heparin Sodium (Beef Lung) 2,000 unit 03/07/18 09:00 03/07/18 09:21 Heparin Bolus IVP 03/07/18 09:01 2,000 unit O ONE Administration Heparin Sodium (Porcine) 1 each 03/06/18 16:17 Pharmacy Consult - Heparin MC 03/06/18 16:18 ONE TIME ONE Heparin Sodium (Porcine) 20,000 unit in 500 mls @ 30 mls/hr 03/06/18 17:05 10:00 Heparin Drip IV 1,400 unit/hr .[id number] WILLAM 35 mls/hr Protocol Titration 1,200 UNIT/HR Amiodarone HCl 450 mg/ Sodium 250 mls @ 33.33 mls/hr 03/06/18 18:30 03/07/18 02:11 Chloride IV 03/07/18 00:30 Infused .[id number] WILLAM Infusion 1 MG/MIN Amiodarone HCl 150 mg/ Sodium 103 mls @ 618 mls/hr 03/06/18 18:20 03/06/18 19 :59 Chloride IV 03/06/18 18:29 Infused O ONE Infusion - Constitutional no acute distress, obese, cooperative - Routine HEENT Exam Head: Present: normocephalic ENT: Present: mucous membranes dry - Routine Neck Exam Absent: JVD, carotid bruit - Routine Chest/Breast/Axilla Exam Chest wall: Absent: tenderness - Routine Respiratory Exam Present: CTA bilaterally. Absent: dyspnea, rales, crackles - Routine Cardiovascular Exam Present: RRR, tachycardia - Routine Abdominal Exam Present: soft, normoactive bowel sounds - Routine Extremities Exam Present: edema - Routine Skin Exam Present: intact, dry, warm - Routine Psychiatric Exam Present: normal affect - Urinary Catheter Management Urethral Cath placed during this visit: yes Insertion date: 03/06/18 Insertion time: 16:15 Results 03/07/18 03:20 03/07/18 03:20 Cardiac Enzymes 03/06/18 03/06/18 03/07/18 Range/Units 15:02 21:00 03:20 Troponin I 0.239 H 0.236 H 0.320 H (0-0.12) ng/ml Coagulation 03/06/18 03/06/18 03/06/18 Range/Units 17:26 17:30 21:29 APTT 129.0 H* Cancelled 29.3 (24-36) SEC 03/07/18 Range/Units 06:38 APTT 38.2 H (24-36) SEC CBC 03/06/18 03/07/18 Range/Units 17:26 03:20 WBC 13.1 H (4.5-11.0) T/MM3 RBC 4.37 L (4.50-5.90) M/MM3 Hgb 14.3 (13.5-17.5) GM/DL Hct 44.0 (41-53) % Plt Count 161 183 (130-400) T/MM3 Comprehensive Metabolic Panel 03/07/18 Range/Units 03:20 Sodium 145 H (134-144) MEQ/L Potassium 4.5 (3.6-5) MEQ/L Chloride 103 (98-107) MEQ/L Carbon Dioxide 27 (22-30) MEQ/L BUN 36.0 H (9-20) MG/DL Creatinine 2.2 H (0.8-1.5) mg/dL Glucose 118 H (75-110) MG/DL Calcium 9.1 (8.4-10.2) MG/DL Intake and Output 03/06/18 03/07/18 03/07/18 22:59 06:59 14:59 Intake Total 663.253 / 105.511 2091.998 / 1090.998 528.116 / 528.116 Output Total 1430 / 1430 1074 / 1074 525 / 525 Balance -766.747 / -766.747 16.998 / 16.998 3.116 / 3.116 Intake: IV 183.253 / 183.253 490.998 / 490.998 178.116 / 178.116 Amiodarone 150 mg In Ns 100 ml 103 / 103 @ 618 mls/hr IV O ONE Rx#: [id number] Amiodarone 450 mg In NS 250ml 33.886 / 33.886 172.76 / 172.76 250 ml @ 1 MG/MIN 33.33 mls/hr IV .[id number] [facility] Rx#:[id number] Amiodarone 900 mg In NS 500ml 63.738 / 63.738 44.533 / 44.533 500 ml @ 0.5 MG/MIN 16.66 mls/ hr IV .Q24H WILLAM Rx#:[id number] Bumetanide Drip 25 mg In 7.867 / 7.867 18.000 / 18.000 8 / 8 Container,Empty 100 ml @ 2 mls/ hr IV Q24H [facility] Rx#:[id number] Heparin Drip 20,000 unit In 500 38.5 / 38.5 236.5 / 236.5 125.583 / 125.583 ml @ 1,200 UNIT/HR 30 mls/hr IV .[id number] WILLAM Rx#:[id number] Oral 480 / 480 600 / 600 350 / 350 Output: Urine Amount (Catheter) 1430 / 1430 1074 / 1074 525 / 525 Other: Urine Appearance Clear Clear Clear Urine Color Pale Yellow Pale Yellow Yellow Weight 220 lb 10.923 oz Patient Weight 03/08/18 06:59 Weight 220 lb 10.923 oz - Imaging and Cardiology Echo: pending Assessment and Plan - Assessment and Plan (1) V-tach Current visit: Yes Status: Acute (2) NSTEMI (non-ST elevated myocardial infarction) Current visit: Yes Status: Acute (3) SVT (supraventricular tachycardia) Current visit: Yes Status: Acute (4) Acute dyspnea Current visit: Yes Status: Acute (5) Acute systolic CHF (congestive heart failure) Current visit: Yes Status: Acute (6) Cardiomyopathy Current visit: No Status: Chronic (7) HTN (hypertension) Current visit: No Status: Chronic (8) CAD (coronary artery disease) Current visit: No Status: Chronic (9) CKD (chronic kidney disease) Current visit: No Status: Chronic (10) Hyperlipidemia Current visit: No Status: Acute - Assessment and Plan 03/06/18 NSTEMI (non-ST elevated myocardial infarction) - Trend troponin 1) 0.239, 2) 0.236, 3)0.320 VT/ SVT (supraventricular tachycardia) - Amiodarone bolus and drip - EKG in am - Heparin drip Acute dyspnea - Presented from [facility] on 4l/NC - reduced to 3L/NC by RN - Reported acute dyspnea but O2 sats stable - Chest xray shows mild pulmonary edema - Bumex 3mg IVP then 0.5mg/ hr drip Acute systolic CHF (congestive heart failure) - Stat Echo: EF 10-15%, severe MR/ TR - Chest xray shows mild pulmonary edema - Bumex 3mg IVP then 0.5mg/ hr drip - BNP [id number] Cardiomyopathy - Stat Echo: EF 10-15%, severe MR/ TR HTN (hypertension) CAD (coronary artery disease) CKD (chronic kidney disease) - BUN 28/SCr 1.98 (base line 1.8) Hyperlipidemia 03/07/18 - Continue Aspirin and Plavix - Resume home ARB - Add Coreg 3.125mg po BID - Continue home Atorvastatin - Left heart cath today due to sustained VTach - Will need BiV/ICD placement on Saturday Hospital Course Summary Disclaimer: The visit summary below is not to be considered part of the above Progress Note. <Jose C tSahl - Last Filed: 03/11/18 16:08> Exam Vital signs: Temperature 96.4 F L 03/11/18 15:31 Pulse Rate 98 03/11/18 15:31 Respiratory Rate 39 H 03/11/18 14:30 Blood Pressure 116/71 03/11/18 15:31 Pulse Oximetry 97 03/11/18 15:31 Inpatient Medications: Generic Name Dose Route Start Last Admin Trade Name Freq PRN Reason Stop Dose Admin Acetaminophen 325 - 650 mg 03/07/18 14:20 03/08/18 22:12 Tylenol PO 325 mg Q5H PRN Administration Pain Hydrocodone Bitart/Acetaminophen 1 - 2 tab 03/07/18 14:20 03/09/18 19:33 [place] 5/325 PO 1 tab Q5H PRN Administration Pain Al Hydroxide/Mg Hydroxide 30 ml 03/07/18 14:20 Maalox Plus PO Q3H PRN Indigestion Albuterol/Ipratropium 3 ml 03/10/18 11:00 03/11/18 10:37 Duoneb AEROSOL 3 ml RTQID WILLAM Administration Amiodarone HCl 200 mg 03/08/18 21:25 03/11/18 09:00 Pacerone PO 200 mg BID WILLAM Administration Aspirin 81 mg 03/07/18 09:00 03/11/18 09:00 Ecotrin PO 81 mg DAILY WILLAM Administration Atorvastatin Calcium 20 mg 03/08/18 21:00 03/10/18 20:14 Lipitor PO 20 mg HS WILLAM Administration Atropine Sulfate 0.5 mg 03/07/18 14:20 Atropine IVP Q5M PRN Bradycardia Bisacodyl 5 - 10 mg 03/07/18 14:20 Dulcolax PO DAILY PRN Constipation Bisacodyl 10 mg 03/07/18 14:20 Dulcolax RECTALLY DAILY PRN Constipation Budesonide/Formoterol Fumarate 2 puff 03/07/18 12:39 03/11/18 13:06 Symbicort Inhaler ORAL INH 2 puff BID WILLAM Administration Carvedilol 6.25 mg 03/10/18 16:37 03/11/18 08:59 Coreg PO 6.25 mg BIDWM WILLAM Administration Clopidogrel Bisulfate 75 mg 03/07/18 09:00 03/11/18 08:59 Plavix PO 75 mg DAILY [facility] Administration Docusate Sodium 100 mg 03/07/18 21:00 03/11/18 09:00 Colace PO 100 mg BID WILLAM Administration Docusate Sodium 100 mg 03/07/18 12:50 Colace PO BID PRN Heparin Sodium (Porcine) 5,000 units 03/11/18 09:00 03/11/18 09:00 Heparin Sq SQ 5,000 units Q12HR [facility] Administration Levothyroxine Sodium 250 mcg 03/08/18 06:30 03/09/18 06:09 Synthroid PO 250 mcg SUSA@0630 [facility] Administration Levothyroxine Sodium 125 mcg 03/10/18 06:30 03/11/18 05:46 Synthroid PO 125 mcg MOTUWETHFR@0630 [facility] Administration Lorazepam 0.5 - 1 mg 03/07/18 14:20 03/10/18 22:56 Ativan PO 1 mg Q4H PRN Administration Anxiety Lorazepam 0.5 - 1 mg 03/07/18 14:20 03/10/18 02:59 Ativan Inj IVP 0.5 mg Q4H PRN Administration Anxiety Magnesium Hydroxide 30 ml 03/07/18 14:20 Mom PO DAILY PRN Constipation Metoclopramide HCl 5 - 10 mg 03/07/18 14:20 Reglan IVP Q6H PRN Nausea &/or vomiting Minocycline HCl 100 mg 03/11/18 21:00 Minocin PO 03/18/18 20:59 BID [facility] Morphine Sulfate 2 - 4 mg 03/07/18 14:20 Morphine Sulfate Inj IVP Q5M PRN Angina Nitroglycerin 0.4 mg 03/07/18 14:20 Nitrostat SL Q5M PRN Angina Ondansetron HCl 4 mg 03/07/18 14:20 Zofran IVP Q6H PRN Nausea &/or vomiting Potassium Chloride 20 meq 03/09/18 14:33 03/11/18 08:59 K-Dur 20 Meq Tablet PO 20 meq WB [facility] Administration Promethazine HCl 12.5 - 25 mg 03/07/18 14:20 Phenergan Inj IVP Q6HR PRN Nausea &/or vomiting Ranitidine HCl 150 mg 03/07/18 18:00 03/10/18 20:15 Zantac PO 150 mg 1800 WILLAM Administration Sodium Chloride 10 - 80 ml 03/09/18 14:34 03/10/18 07:52 Iv Flush IV 20 ml PRN PRN Administration Flushing Sodium Chloride 10 ml 03/10/18 20:02 Iv Flush IV PRN PRN Flushing Tramadol HCl 50 mg 03/06/18 18:28 Ultram PO Q6H PRN Pain Discontinued Medications Generic Name Dose Route Start Last Admin Trade Name Freq PRN Reason Stop Dose Admin Acetaminophen 650 mg 03/06/18 18:27 Tylenol PO Q5H PRN Pain Adenosine 6 mg 03/06/18 16:02 03/06/18 16:02 Adenocard IVP 03/06/18 16:03 6 mg O ONE Administration Adenosine 12 mg 03/06/18 16:06 03/06/18 16:06 Adenocard IVP 03/06/18 16:07 12 mg O ONE Administration Atorvastatin Calcium 20 mg 03/07/18 18:00 03/10/18 21:34 Lipitor PO Not Given 1800 WILLAM Budesonide/Formoterol Fumarate 2 puff 03/07/18 21:00 Symbicort Inhaler ORAL INH BID WILLAM Bumetanide 1 mg 03/06/18 16:09 03/06/18 18:08 Bumex 1 Mg/4 Ml Inj. IVP 03/06/18 16:10 1 mg O ONE Administration Bumetanide 1 mg 03/06/18 16:10 03/06/18 18:09 Bumex 1 Mg/4 Ml Inj. IVP 03/06/18 16:11 1 mg O ONE Administration Bumetanide 1 mg 03/06/18 16:11 03/06/18 16:11 Bumex 1 Mg/4 Ml Inj. IVP 03/06/18 16:12 1 mg O ONE Administration Bumetanide 2 mg 03/07/18 21:00 03/10/18 21:33 Bumex 1 Mg/4 Ml Inj. IVP Not Given QID WILLAM Bumetanide 2 mg 03/08/18 15:00 03/09/18 04:06 Bumex 1 Mg/4 Ml Inj. IVP Not Given Q6HR WILLAM Bumetanide 1 mg 03/09/18 09:00 03/10/18 08:16 Bumex 1 Mg/4 Ml Inj. IVP 1 mg BID WILLAM Administration Bumetanide 1 mg 03/09/18 14:33 03/09/18 15:41 Bumex 1 Mg/4 Ml Inj. IVP 03/09/18 14:34 1 mg O ONE Administration Bumetanide 2 mg 03/10/18 16:07 03/10/18 20:15 Bumex 1 Mg Tab PO 2 mg [id number] WILLAM Administration Carvedilol 3.125 mg 03/07/18 10:53 03/10/18 07:52 Coreg PO 3.125 mg BIDWM WILLAM Administration Device 1 each 03/07/18 12:57 03/07/18 12:[address] [facility] 03/07/18 12:58 1 each O ONE Administration Heparin Sodium (Beef Lung) 6,000 unit 03/06/18 17:04 03/06/18 17:22 Heparin Bolus IVP 03/06/18 17:05 6,000 unit O ONE Administration Heparin Sodium (Beef Lung) 5,000 unit 03/06/18 22:04 03/06/18 22:10 Heparin Bolus IVP 03/06/18 22:05 5,000 unit O ONE Administration Heparin Sodium (Beef Lung) 2,000 unit 03/07/18 09:00 03/07/18 09:21 Heparin Bolus IVP 03/07/18 09:01 2,000 unit O ONE Administration Heparin Sodium (Porcine) 1 each 03/06/18 16:17 Pharmacy Consult - Heparin 03/06/18 16:18 ONE TIME ONE Heparin Sodium (Porcine) 5,000 units 03/09/18 09:00 03/09/18 21:31 Heparin Sq SQ 5,000 units Q12HR [facility] Administration Bumetanide 25 mg/ IV Solution 100 mls @ 2 mls/hr 03/06/18 16:15 03/07/18 18: 19 IV Not Given Q24H [facility] Heparin Sodium (Porcine) 20,000 unit in 500 mls @ 30 mls/hr 03/06/18 17:05 14:00 Heparin Drip IV Infused .[id number] [facility] Titration Protocol 1,200 UNIT/HR Amiodarone HCl 900 mg/ Sodium 500 mls @ 16.66 mls/hr 03/07/18 00:31 03/08/18 12:41 Chloride IV Not Given .Q24H WILLAM 0.5 MG/MIN Amiodarone HCl 450 mg/ Sodium 250 mls @ 33.33 mls/hr 03/06/18 18:30 03/07/18 02:11 Chloride IV 03/07/18 00:30 Infused .Q7H31M WILLAM Infusion 1 MG/MIN Amiodarone HCl 150 mg/ Sodium 103 mls @ 618 mls/hr 03/06/18 18:20 03/06/18 19 :59 Chloride IV 03/06/18 18:29 Infused O ONE Infusion Heparin Sodium (Porcine) 20,000 unit in 500 mls @ 35 mls/hr 03/07/18 09:00 09:19 Heparin Drip IV Not Given .[id number] WILLAM Protocol 1,400 UNIT/HR Sodium Chloride 1,000 mls @ 50 mls/hr 03/07/18 14:30 03/08/18 06:17 Normal Saline IV 03/08/18 00:30 50 mls/hr .Q20H WILLAM Infusion Cefazolin Sodium 1 g/ Sodium 100 mls @ 200 mls/hr 03/11/18 01:00 03/11/18 09: 37 Chloride IV 03/11/18 09:29 Infused Q8HR WILLAM Infusion Losartan Potassium 25 mg 03/07/18 11:00 03/08/18 12:50 Cozaar PO 25 mg DAILY WILLAM Administration Magnesium Hydroxide 30 ml 03/07/18 12:50 Mom PO DAILY PRN Constipation Mirabegron 50 mg 03/07/18 09:00 03/08/18 08:38 Myrbetriq PO 50 mg DAILY WILLAM Administration Morphine Sulfate 2 - 4 mg 03/07/18 14:20 Morphine Sulfate Inj IVP 03/08/18 14:19 Q2H PRN Pain Ondansetron HCl 4 mg 03/06/18 18:28 Zofran IVP Q6H PRN Nausea &/or vomiting Pharmacy Consult 1 each 03/11/18 15:34 Pharmacy Consult - Fall Risk 03/11/18 15:35 ONE TIME ONE Potassium Chloride 20 meq 03/08/18 21:23 03/08/18 22:08 K-Dur 20 Meq Tablet PO 03/08/18 21:24 20 meq O ONE Administration Tamsulosin HCl 0.4 mg 03/07/18 18:00 03/08/18 19:04 Flomax PO 0.4 mg 1800 WILLAM Administration - Urinary Catheter Management Urethral Cath placed during this visit: no Results 03/11/18 04:44 03/11/18 04:43 CBC 03/11/18 Range/Units 04:44 WBC 14.5 H (4.5-11.0) T/MM3 RBC 3.88 L (4.50-5.90) M/MM3 Hgb 12.8 L (13.5-17.5) GM/DL Hct 39.0 L (41-53) % Plt Count 140 (130-400) T/MM3 Neut # (Auto) Not performed Lymph # (Auto) Not performed Alfalfa # (Auto) Not performed Eos # (Auto) Not performed Baso # (Auto) Not performed Comprehensive Metabolic Panel 03/11/18 Range/Units 04:43 Sodium 137 (134-144) MEQ/L Potassium 4.3 (3.6-5) MEQ/L Chloride 96 L (98-107) MEQ/L Carbon Dioxide 27 (22-30) MEQ/L BUN 59.0 H* (9-20) MG/DL Creatinine 2.5 H D (0.8-1.5) mg/dL Glucose 133 H (75-110) MG/DL Calcium 8.7 (8.4-10.2) MG/DL Intake and Output 03/11/18 03/11/18 03/11/18 06:59 14:59 22:59 Intake Total 300 / 300 340 / 340 0 / 0 Output Total 302 / 302 299 / 299 Balance -2 / -2 41 / 41 0 / 0 Intake: IV 100 / 100 100 / 100 Cefazolin 1 g In Ns 100 ml @ 100 / 100 100 / 100 200 mls/hr IV Q8HR WILLAM Rx#: [id number] Oral 200 / 200 240 / 240 0 / 0 Output: Urine Amount (Catheter) 302 / 302 299 / 299 Other: Urine Appearance Clear Clear Urine Color Straw Straw Weight 94.3 kg Patient Weight 03/12/18 06:59 Weight 94.3 kg Assessment and Plan - Assessment and Plan (1) Cardiomyopathy Current visit: Yes Status: Chronic (2) HTN (hypertension) Current visit: Yes Status: Chronic (3) CAD (coronary artery disease) Current visit: Yes Status: Chronic (4) CKD (chronic kidney disease) Current visit: Yes Status: Chronic (5) Hyperlipidemia Current visit: Yes Status: Chronic (6) Acute dyspnea Current visit: No Status: Acute (7) Acute systolic CHF (congestive heart failure) Current visit: Yes Status: Acute (8) SVT (supraventricular tachycardia) Current visit: No Status: Acute (9) NSTEMI (non-ST elevated myocardial infarction) Current visit: Yes Status: Acute - Attestation Attestation Narrative: 03/11/18 16:08 Recommendation After examining the patient I agree with the above assessment. I am involved in the formulation of the patient's plan of care. Hospital Course Summary Disclaimer: The visit summary below is not to be considered part of the above Progress Note.
--- NOTE | 2018-03-07 11:46 | DC Cardioversion ---
DATE OF PROCEDURE March 06, 2018 The patient is a 57-year-old gentleman with cardiomyopathy who developed arrhythmias and this afternoon he decompensated with ventricular tachycardia and was referred for cardioversion. Due to the emergent nature of the procedure consent was not obtained. PROCEDURE 1. DC cardioversion of ventricular tachycardia into sinus. TECHNIQUE Conscious sedation was performed using Versed and fentanyl. Anterolateral Zoll pads were applied. 360 joules of energy was delivered and the patient converted from ventricular tachycardia into sinus tachycardia. He tolerated the procedure well with no complications. IMPRESSION 1. Successful DC cardioversion of ventricular tachycardia into sinus tachycardia. MTDD
--- NOTE | 2018-03-07 11:50 | Echocardiogram ---
DATE OF PROCEDURE March 06, 2018 This is a two-dimensional echo with spectral Doppler, color-flow and M-mode. It was obtained in a patient with congestive heart failure and ventricular tachycardia. Left atrium is dilated. Left ventricle is dilated. Left ventricle wall thickness is normal. LV systolic function is reduced with severe global hypokinesia with ejection fraction of about 10-15%. Right atrium is dilated. Right ventricle is normal. Aortic root dimension is normal. Mitral valve is morphologically normal with moderate to severe mitral regurgitation. Aortic valve is a trileaflet structure with mild aortic insufficiency and no stenosis. Tricuspid valve shows moderate to severe tricuspid regurgitation with estimated pulmonary artery systolic pressure of 62. Pulmonary valve shows mild pulmonary insufficiency. There is no pericardial effusion. IMPRESSION 1. Severe global hypokinesia with ejection fraction of 10-15%. 2. Biatrial dilation. 3. Right ventricular dilation. 4. Moderate to severe mitral regurgitation. 5. Moderate to severe tricuspid regurgitation with estimated pulmonary artery systolic pressure of 62. 6. Mild aortic insufficiency. 7. Mild pulmonary insufficiency. MTDD
[2018-03-07] MEDS: CARVEDILOL 3.125 MG TABLET PO SCH ×2 (12:25→18:11)
[2018-03-07] MEDS: LOSARTAN 50 MG TABLET PO SCH (12:25)
[2018-03-07] MEDS ORDERED: DOCUSATE SODIUM 100 MG CAPSULE PO PRN (12:50)
[2018-03-07] MEDS ORDERED: INHALER ASSIST DEVICE (Optichamber) MC ONE (12:57)
[2018-03-07] MEDS ORDERED: Verapamil 5 MG/2 ML VIAL ONE (13:27)
[2018-03-07] MEDS ORDERED: MIDAZOLAM 2mg/2ml INJECTION ONE (13:27)
[2018-03-07] MEDS ORDERED: FentaNYL 250 MCG/5 ML INJECTION ONE (13:28)
[2018-03-07] MEDS ORDERED: NITROGLYCERIN 50MG INJECTION IV ONE (13:28)
[2018-03-07] MEDS ORDERED: HEPARIN 1,000unit/ml INJECTION 10ml ONE (13:28)
[2018-03-07] MEDS ORDERED: NS 1,000 ML ONE (13:33)
[2018-03-07] MEDS ORDERED: HEPARIN 1,000 UNITS/500 ML PREMIX (*CVL ONLY*) IV ONE (14:04)
[2018-03-07] MEDS ORDERED: LIDOCAINE 1% (10mg/ml) 30ml SDV INJ ONE (14:05)
[2018-03-07] MEDS ORDERED: MAG-AL + SIM ORAL LIQUID 30ml PO PRN (14:20)
[2018-03-07] MEDS ORDERED: ATROPINE 1 MG/ML INJECTION IVP PRN (14:20)
[2018-03-07] MEDS ORDERED: METOCLOPRAMIDE 10mg/2ml INJECTION IVP PRN (14:20)
[2018-03-07] MEDS ORDERED: NITROGLYCERIN 0.4 MG SUBLINGUAL TABLET SL PRN (14:20)
[2018-03-07] MEDS ORDERED: BISACODYL 10 MG SUPPOSITORY RECTALLY PRN (14:20)
[2018-03-07] MEDS ORDERED: PROMETHAZINE 25 MG INJECTION IVP PRN (14:20)
[2018-03-07] MEDS ORDERED: MORPHINE SULFATE 4mg INJECTION IVP PRN ×2 (14:20)
[2018-03-07] MEDS ORDERED: NS 1,000 ML IV SCH (14:30)
[2018-03-07] MEDS ORDERED: FentaNYL 100 MCG/2 ML INJECTION IVP ONE (16:00)
--- NOTE | 2018-03-07 16:27 | Cardiac Catheterization Report ---
DATE OF PROCEDURE March 07, 2018 INDICATIONS The patient is a 57-year-old gentleman who was admitted with congestive heart failure and had sustained ventricular tachycardia requiring resuscitation and was referred for further evaluation by cardiac catheterization and possible intervention. INFORMED CONSENT Informed consent was obtained after explaining the procedure and the potential risks to the patient and mother who is the DPOA, who agreed to proceed with the procedure. PROCEDURE 1. Left heart catheterization. 2. Coronary angiography. 3. Measurement of the LVEDP by crossing the aortic valve and placing catheter in left ventricular cavity. TECHNIQUE He was prepped and draped in the usual sterile techniques. Conscious sedation was performed using Versed and fentanyl. 1% lidocaine was used for local anesthesia. Using modified Seldinger technique, arterial access was obtained into the right radial artery with placement of a 6-Czech arterial sheath. 3000 units of heparin, 300 mcg of nitroglycerin, and 2.5 mg of verapamil were given through the arterial sheath. Left ventricular end-diastolic pressure was 24 and there was no gradient across the aortic valve. CORONARY ANGIOGRAPHY Left main was free of significant lesions. Left anterior descending artery had minor irregularities but no significant lesions with calcification of the LAD and diagonals. Two diagonals were coming off of the LAD with calcification and no significant stenosis. Left circumflex artery had calcification with 30% proximal stenosis. Right coronary artery had minor irregularities but no significant lesions. The patient tolerated the procedure well with no complications. IMPRESSION 1. Mild coronary artery disease as described above. PLAN Continue medical management. CELESTINE
[2018-03-07] MEDS: RANITIDINE 150 MG TABLET PO SCH (18:10)
[2018-03-07] MEDS: TAMSULOSIN 0.4 MG CAPSULE PO SCH (18:10)
[2018-03-07] MEDS: ATORVASTATIN 20 MG TABLET PO SCH (18:11)
[2018-03-07] MEDS: BUMETANIDE DRIP 25 MG in CONTAINER,EMPTY 100 ML IV SCH ×2 (18:18→18:19)
[2018-03-07] MEDS: DOCUSATE SODIUM 100 MG CAPSULE PO SCH (21:04)
[2018-03-08] MEDS: LEVOTHYROXINE 125 MCG TABLET PO SCH (07:26)
[2018-03-08] MEDS: MIRABEGRON 25mg TABLET PO SCH (08:38)
[2018-03-08] MEDS: ASPIRIN *EC* 81 MG TABLET PO SCH (08:39)
[2018-03-08] MEDS: CLOPIDOGREL 75 MG TABLET PO SCH (08:39)
[2018-03-08] MEDS: CARVEDILOL 3.125 MG TABLET PO SCH ×2 (08:39→17:39)
[2018-03-08] MEDS: AMIODARONE 900 MG in NS 500ml 500 ML IV SCH (12:41)
[2018-03-08] MEDS: LOSARTAN 50 MG TABLET PO SCH (12:50)
[2018-03-08] MEDS: HYDROCODONE/APAP 5mg/325mg TABLET PO PRN ×2 (16:09→16:58)
[2018-03-08] MEDS: DOCUSATE SODIUM 100 MG CAPSULE PO SCH ×2 (16:17→20:50)
[2018-03-08] MEDS: TAMSULOSIN 0.4 MG CAPSULE PO SCH (19:04)
[2018-03-08] MEDS: RANITIDINE 150 MG TABLET PO SCH (19:04)
--- NOTE | 2018-03-08 21:11 | Cardiology Progress Note ---
<Pam Simental L - Last Filed: 03/08/18 21:46> Subjective Principal diagnosis: SCHF, NSTEMI Interval history: Mirza is seen in follow up for NSTEMI, SVT, sustained VT. He required cardioversion at bedside. Exam Vital signs: Temperature 98.1 F 03/08/18 12:00 Pulse Rate 98 03/08/18 15:00 Respiratory Rate 20 03/08/18 19:48 Blood Pressure 102/58 03/08/18 15:00 Pulse Oximetry 94 03/08/18 15:00 Inpatient Medications: Generic Name Dose Route Start Last Admin Trade Name Freq PRN Reason Stop Dose Admin Acetaminophen 650 mg 03/06/18 18:27 Tylenol PO Q5H PRN Pain Acetaminophen 325 - 650 mg 03/07/18 14:20 Tylenol PO Q5H PRN Pain Hydrocodone Bitart/Acetaminophen 1 - 2 tab 03/07/18 14:20 03/08/18 16:58 [place] 5/325 PO 1 tab Q5H PRN Administration Pain Al Hydroxide/Mg Hydroxide 30 ml 03/07/18 14:20 Maalox Plus PO Q3H PRN Indigestion Aspirin 81 mg 03/07/18 09:00 03/08/18 08:39 Ecotrin PO 81 mg DAILY WILLAM Administration Atorvastatin Calcium 20 mg 03/08/18 21:00 Lipitor PO HS WILLAM Atropine Sulfate 0.5 mg 03/07/18 14:20 Atropine IVP Q5M PRN Bradycardia Bisacodyl 5 - 10 mg 03/07/18 14:20 Dulcolax PO DAILY PRN Constipation Bisacodyl 10 mg 03/07/18 14:20 Dulcolax RECTALLY DAILY PRN Constipation Budesonide/Formoterol Fumarate 2 puff 03/07/18 12:39 03/08/18 19:47 Symbicort Inhaler ORAL INH 2 puff BID WILLAM Administration Bumetanide 2 mg 03/08/18 15:00 03/08/18 15:40 Bumex 1 Mg/4 Ml Inj. IVP 2 mg Q6HR WILLAM Administration Carvedilol 3.125 mg 03/07/18 10:53 03/08/18 17:39 Coreg PO 3.125 mg BIDWM WILLAM Administration Clopidogrel Bisulfate 75 mg 03/07/18 09:00 03/08/18 08:39 Plavix PO 75 mg DAILY WILLAM Administration Docusate Sodium 100 mg 03/07/18 21:00 03/08/18 20:50 Colace PO 100 mg BID WILLAM Administration Docusate Sodium 100 mg 03/07/18 12:50 Colace PO BID PRN Amiodarone HCl 900 mg/ Sodium 500 mls @ 16.66 mls/hr 03/07/18 00:31 03/08/18 12:41 Chloride IV Not Given .Q24H WILLAM 0.5 MG/MIN Levothyroxine Sodium 250 mcg 03/08/18 06:30 03/08/18 07:26 Synthroid PO 250 mcg SUSA@0630 WILLAM Administration Levothyroxine Sodium 125 mcg 03/10/18 06:30 Synthroid PO MOTUWETHFR@0630 WILLAM Lorazepam 0.5 - 1 mg 03/07/18 14:20 Ativan PO Q4H PRN Anxiety Lorazepam 0.5 - 1 mg 03/07/18 14:20 Ativan Inj IVP Q4H PRN Anxiety Losartan Potassium 25 mg 03/07/18 11:00 03/08/18 12:50 Cozaar PO 25 mg DAILY [facility] Administration Magnesium Hydroxide 30 ml 03/07/18 12:50 Mom PO DAILY PRN Constipation Magnesium Hydroxide 30 ml 03/07/18 14:20 Mom PO DAILY PRN Constipation Metoclopramide HCl 5 - 10 mg 03/07/18 14:20 Reglan IVP Q6H PRN Nausea &/or vomiting Mirabegron 50 mg 03/07/18 09:00 03/08/18 08:38 Myrbetriq PO 50 mg DAILY [facility] Administration Morphine Sulfate 2 - 4 mg 03/07/18 14:20 Morphine Sulfate Inj IVP Q5M PRN Angina Nitroglycerin 0.4 mg 03/07/18 14:20 Nitrostat SL Q5M PRN Angina Ondansetron HCl 4 mg 03/06/18 18:28 Zofran IVP Q6H PRN Nausea &/or vomiting Ondansetron HCl 4 mg 03/07/18 14:20 Zofran IVP Q6H PRN Nausea &/or vomiting Promethazine HCl 12.5 - 25 mg 03/07/18 14:20 Phenergan Inj IVP Q6HR PRN Nausea &/or vomiting Ranitidine HCl 150 mg 03/07/18 18:00 03/08/18 19:04 Zantac PO 150 mg 1800 WILLAM Administration Tamsulosin HCl 0.4 mg 03/07/18 18:00 03/08/18 19:04 Flomax PO 0.4 mg 1800 WILLAM Administration Tramadol HCl 50 mg 03/06/18 18:28 Ultram PO Q6H PRN Pain Discontinued Medications Generic Name Dose Route Start Last Admin Trade Name Freq PRN Reason Stop Dose Admin Adenosine 6 mg 03/06/18 16:02 03/06/18 16:02 Adenocard IVP 03/06/18 16:03 6 mg O ONE Administration Adenosine 12 mg 03/06/18 16:06 03/06/18 16:06 Adenocard IVP 03/06/18 16:07 12 mg O ONE Administration Atorvastatin Calcium 20 mg 03/07/18 18:00 03/07/18 18:11 Lipitor PO 20 mg 1800 WILLAM Administration Budesonide/Formoterol Fumarate 2 puff 03/07/18 21:00 Symbicort Inhaler ORAL INH BID WILLAM Bumetanide 1 mg 03/06/18 16:09 03/06/18 18:08 Bumex 1 Mg/4 Ml Inj. IVP 03/06/18 16:10 1 mg O ONE Administration Bumetanide 1 mg 03/06/18 16:10 03/06/18 18:09 Bumex 1 Mg/4 Ml Inj. IVP 03/06/18 16:11 1 mg O ONE Administration Bumetanide 1 mg 03/06/18 16:11 03/06/18 16:11 Bumex 1 Mg/4 Ml Inj. IVP 03/06/18 16:12 1 mg O ONE Administration Bumetanide 2 mg 03/07/18 21:00 03/08/18 08:35 Bumex 1 Mg/4 Ml Inj. IVP 2 mg QID WILLAM Administration Device 1 each 03/07/18 12:57 03/07/18 12:59 Optichamber MC 03/07/18 12:58 1 each O ONE Administration Heparin Sodium (Beef Lung) 6,000 unit 03/06/18 17:04 03/06/18 17:22 Heparin Bolus IVP 03/06/18 17:05 6,000 unit O ONE Administration Heparin Sodium (Beef Lung) 5,000 unit 03/06/18 22:04 03/06/18 22:10 Heparin Bolus IVP 03/06/18 22:05 5,000 unit O ONE Administration Heparin Sodium (Beef Lung) 2,000 unit 03/07/18 09:00 03/07/18 09:21 Heparin Bolus IVP 03/07/18 09:01 2,000 unit O ONE Administration Heparin Sodium (Porcine) 1 each 03/06/18 16:17 Pharmacy Consult - Heparin 03/06/18 16:18 ONE TIME ONE Bumetanide 25 mg/ IV Solution 100 mls @ 2 mls/hr 03/06/18 16:15 03/07/18 18: 19 IV Not Given Q24H WILLAM Heparin Sodium (Porcine) 20,000 unit in 500 mls @ 30 mls/hr 03/06/18 17:05 14:00 Heparin Drip IV Infused .[id number] WILLAM Titration Protocol 1,200 UNIT/HR Amiodarone HCl 450 mg/ Sodium 250 mls @ 33.33 mls/hr 03/06/18 18:30 03/07/18 02:11 Chloride IV 03/07/18 00:30 Infused .[id number] WILLAM Infusion 1 MG/MIN Amiodarone HCl 150 mg/ Sodium 103 mls @ 618 mls/hr 03/06/18 18:20 03/06/18 19 :59 Chloride IV 03/06/18 18:29 Infused O ONE Infusion Heparin Sodium (Porcine) 20,000 unit in 500 mls @ 35 mls/hr 03/07/18 09:00 09:19 Heparin Drip IV Not Given .[id number] WILLAM Protocol 1,400 UNIT/HR Sodium Chloride 1,000 mls @ 50 mls/hr 03/07/18 14:30 03/08/18 06:17 Normal Saline IV 03/08/18 00:30 50 mls/hr .Q20H WILLAM Infusion Morphine Sulfate 2 - 4 mg 03/07/18 14:20 Morphine Sulfate Inj IVP 03/08/18 14:19 Q2H PRN Pain - Routine HEENT Exam Head: Present: normocephalic Eye: Present: conjunctivae pink ENT: Present: mucous membranes moist - Routine Neck Exam Present: supple. Absent: carotid bruit - Routine Respiratory Exam Present: crackles - Routine Cardiovascular Exam Present: RRR, murmur (II/IV), tachycardia - Routine Abdominal Exam Present: soft, normoactive bowel sounds, non tender - Routine Extremities Exam Present: edema (3+ pitting), normal capillary refill, amputation (left AKA) - Routine Back/Spine/Pelvis Exam Back/Spine: Present: full ROM - Routine Skin Exam Present: intact, warm - Routine Neurological Exam Present: alert, oriented X3 - Urinary Catheter Management Urethral Cath placed during this visit: yes Insertion date: 03/06/18 Insertion time: 16:15 Results 03/08/18 04:34 03/08/18 04:34 CBC 03/08/18 Range/Units 04:34 WBC 11.8 H (4.5-11.0) T/MM3 RBC 4.13 L (4.50-5.90) M/MM3 Hgb 13.8 (13.5-17.5) GM/DL Hct 40.5 L (41-53) % Plt Count 145 (130-400) T/MM3 Neut # (Auto) 8.7 H (1.8-7.7) T/MM3 Lymph # (Auto) 1.8 (1-4.8) T/MM3 [place] # (Auto) 0.8 (0-0.8) T/MM3 Eos # (Auto) 0.4 (0-0.5) T/MM3 Baso # (Auto) 0.1 (0-0.2) T/MM3 Comprehensive Metabolic Panel 03/08/18 Range/Units 04:34 Sodium 141 (134-144) MEQ/L Potassium 3.4 L D (3.6-5) MEQ/L Chloride 100 (98-107) MEQ/L Carbon Dioxide 29 (22-30) MEQ/L BUN 38.0 H (9-20) MG/DL Creatinine 2.1 H (0.8-1.5) mg/dL Glucose 101 (75-110) MG/DL Calcium 8.5 (8.4-10.2) MG/DL Intake and Output 03/08/18 03/08/18 03/08/18 06:59 14:59 22:59 Intake Total 414.167 / 414.167 420 / 420 190 / 190 Output Total 910 / 910 1229 / 1229 375 / 375 Balance -495.833 / -495.833 -809 / -809 -185 / -185 Intake: IV 414.167 / 414.167 Ns 1,000 ml @ 50 mls/hr IV . 414.167 / 414.167 Q20H WILLAM Rx#:[id number] Oral 420 / 420 190 / 190 Output: Urine Amount (Catheter) 910 / 910 1229 / 1229 375 / 375 Other: Urine Appearance Clear Urine Color Pale Pale Yellow Yellow Weight 94.5 kg Patient Weight 03/09/18 06:59 Weight 94.5 kg - Imaging and Cardiology Echo: report reviewed Cardiac cath: report reviewed EKG results: image reviewed Imaging & Cardiology Narrative: ECHO IMPRESSION 1. Severe global hypokinesia with ejection fraction of 10-15%. 2. Biatrial dilation. 3. Right ventricular dilation. 4. Moderate to severe mitral regurgitation. 5. Moderate to severe tricuspid regurgitation with estimated pulmonary artery systolic pressure of 62. 6. Mild aortic insufficiency. 7. Mild pulmonary insufficiency. Assessment and Plan - Assessment and Plan (1) Cardiomyopathy Current visit: No Status: Chronic (2) HTN (hypertension) Current visit: No Status: Chronic (3) CAD (coronary artery disease) Current visit: No Status: Chronic (4) CKD (chronic kidney disease) Current visit: No Status: Chronic (5) Hyperlipidemia Current visit: No Status: Acute (6) Acute dyspnea Current visit: Yes Status: Acute (7) Acute systolic CHF (congestive heart failure) Current visit: Yes Status: Acute (8) SVT (supraventricular tachycardia) Current visit: Yes Status: Acute (9) NSTEMI (non-ST elevated myocardial infarction) Current visit: Yes Status: Acute (10) V-tach Current visit: Yes Status: Acute - Assessment and Plan 03/06/18 NSTEMI (non-ST elevated myocardial infarction) - Trend troponin 1) 0.239, 2) 0.236, 3)0.320 VT/ SVT (supraventricular tachycardia) - Amiodarone bolus and drip - EKG in am - Heparin drip Acute dyspnea - Presented from [facility] on 4l/NC - reduced to 3L/NC by RN - Reported acute dyspnea but O2 sats stable - Chest xray shows mild pulmonary edema - Bumex 3mg IVP then 0.5mg/ hr drip Acute systolic CHF (congestive heart failure) - Stat Echo: EF 10-15%, severe MR/ TR - Chest xray shows mild pulmonary edema - Bumex 3mg IVP then 0.5mg/ hr drip - BNP [id number] Cardiomyopathy - Stat Echo: EF 10-15%, severe MR/ TR HTN (hypertension) CAD (coronary artery disease) CKD (chronic kidney disease) - BUN 28/SCr 1.98 (base line 1.8) Hyperlipidemia 03/07/18 - Continue Aspirin and Plavix - Resume home ARB - Add Coreg 3.125mg po BID - Continue home Atorvastatin - Left heart cath today due to sustained VTach - Will need BiV/ICD placement on Saturday03/08/18 -continue Coreg 3.125mg bid, has maintained SR on tele today - PO amiodarone 200mg bid - Decrease bumex to 1mg IV bid, start in AM - K 3.4 today, replace with low dose due to elevated Cr and ARB, 20meq once - DC losartan due to hypotension and elevated Cr - bp borderline to hypotensive today, monitor closely - plan primary prevention device implant Saturday - repeat cxr, bnp, cmp and cbc in AM Hospital Course Summary Disclaimer: The visit summary below is not to be considered part of the above Progress Note. <Jose C Stahl - Last Filed: 03/12/18 08:09> Exam Vital signs: Temperature 96.5 F L 03/11/18 19:45 Pulse Rate 95 03/12/18 04:00 Respiratory Rate 22 03/12/18 03:06 Blood Pressure 104/71 03/12/18 03:06 Pulse Oximetry 97 03/12/18 03:06 Inpatient Medications: Generic Name Dose Route Start Last Admin Trade Name Freq PRN Reason Stop Dose Admin Acetaminophen 325 - 650 mg 03/07/18 14:20 03/08/18 22:12 Tylenol PO 325 mg Q5H PRN Administration Pain Hydrocodone Bitart/Acetaminophen 1 - 2 tab 03/07/18 14:20 03/11/18 19:26 [place] 5/325 PO 1 tab Q5H PRN Administration Pain Al Hydroxide/Mg Hydroxide 30 ml 03/07/18 14:20 Maalox Plus PO Q3H PRN Indigestion Albuterol Sulfate 2.5 mg 03/12/18 02:04 03/12/18 02:06 Proventil Neb (0.083%) AEROSOL 2.5 mg Q2HR PRN Administration Albuterol/Ipratropium 3 ml 03/10/18 11:00 03/12/18 07:50 Duoneb AEROSOL 3 ml RTQID WILLAM Administration Amiodarone HCl 200 mg 03/08/18 21:25 03/11/18 20:22 Pacerone PO 200 mg BID WILLAM Administration Aspirin 81 mg 03/07/18 09:00 03/11/18 09:00 Ecotrin PO 81 mg DAILY WILLAM Administration Atorvastatin Calcium 20 mg 03/08/18 21:00 03/11/18 21:39 Lipitor PO 20 mg HS WILLAM Administration Atropine Sulfate 0.5 mg 03/07/18 14:20 Atropine IVP Q5M PRN Bradycardia Bisacodyl 5 - 10 mg 03/07/18 14:20 Dulcolax PO DAILY PRN Constipation Bisacodyl 10 mg 03/07/18 14:20 Dulcolax RECTALLY DAILY PRN Constipation Budesonide/Formoterol Fumarate 2 puff 03/07/18 12:39 03/11/18 20:43 Symbicort Inhaler ORAL INH 2 puff BID [facility] Administration Carvedilol 6.25 mg 03/10/18 16:37 03/11/18 19:24 Coreg PO 6.25 mg BIDWM WILLAM Administration Clopidogrel Bisulfate 75 mg 03/07/18 09:00 03/11/18 08:59 Plavix PO 75 mg DAILY WILLAM Administration Docusate Sodium 100 mg 03/07/18 21:00 03/11/18 20:22 Colace PO 100 mg BID WILLAM Administration Docusate Sodium 100 mg 03/07/18 12:50 Colace PO BID PRN Heparin Sodium (Porcine) 5,000 units 03/11/18 09:00 03/11/18 20:22 Heparin Sq SQ 5,000 units Q12HR WILLAM Administration Levothyroxine Sodium 250 mcg 03/08/18 06:30 03/09/18 06:09 Synthroid PO 250 mcg SUSA@0630 WILLAM Administration Levothyroxine Sodium 125 mcg 03/10/18 06:30 03/12/18 06:07 Synthroid PO 125 mcg MOTUWETHFR@0630 WILLAM Administration Lorazepam 0.5 - 1 mg 03/07/18 14:20 03/10/18 22:56 Ativan PO 1 mg Q4H PRN Administration Anxiety Lorazepam 0.5 - 1 mg 03/07/18 14:20 03/12/18 03:30 Ativan Inj IVP 0.5 mg Q4H PRN Administration Anxiety Magnesium Hydroxide 30 ml 03/07/18 14:20 Mom PO DAILY PRN Constipation Metoclopramide HCl 5 - 10 mg 03/07/18 14:20 Reglan IVP Q6H PRN Nausea &/or vomiting Minocycline HCl 100 mg 03/11/18 21:00 03/11/18 20:22 Minocin PO 03/18/18 20:59 100 mg BID WILLAM Administration Morphine Sulfate 2 - 4 mg 03/07/18 14:20 Morphine Sulfate Inj IVP Q5M PRN Angina Nitroglycerin 0.4 mg 03/07/18 14:20 Nitrostat SL Q5M PRN Angina Ondansetron HCl 4 mg 03/07/18 14:20 Zofran IVP Q6H PRN Nausea &/or vomiting Promethazine HCl 12.5 - 25 mg 03/07/18 14:20 Phenergan Inj IVP Q6HR PRN Nausea &/or vomiting Ranitidine HCl 150 mg 03/07/18 18:00 03/11/18 19:24 Zantac PO 150 mg 1800 WILLAM Administration Sodium Chloride 10 - 80 ml 03/09/18 14:34 03/10/18 07:52 Iv Flush IV 20 ml PRN PRN Administration [place] Sodium Chloride 10 ml 03/10/18 20:02 Iv Flush IV PRN PRN [place] Tramadol HCl 50 mg 03/06/18 18:28 Ultram PO Q6H PRN Pain Discontinued Medications Generic Name Dose Route Start Last Admin Trade Name Freq PRN Reason Stop Dose Admin Acetaminophen 650 mg 03/06/18 18:27 Tylenol PO Q5H PRN Pain Adenosine 6 mg 03/06/18 16:02 03/06/18 16:02 Adenocard IVP 03/06/18 16:03 6 mg O ONE Administration Adenosine 12 mg 03/06/18 16:06 03/06/18 16:06 Adenocard IVP 03/06/18 16:07 12 mg O ONE Administration Atorvastatin Calcium 20 mg 03/07/18 18:00 03/10/18 21:34 Lipitor PO Not Given 1800 WILLAM Budesonide/Formoterol Fumarate 2 puff 03/07/18 21:00 Symbicort Inhaler ORAL INH BID WILLAM Bumetanide 1 mg 03/06/18 16:09 03/06/18 18:08 Bumex 1 Mg/4 Ml Inj. IVP 03/06/18 16:10 1 mg O ONE Administration Bumetanide 1 mg 03/06/18 16:10 03/06/18 18:09 Bumex 1 Mg/4 Ml Inj. IVP 03/06/18 16:11 1 mg O ONE Administration Bumetanide 1 mg 03/06/18 16:11 03/06/18 16:11 Bumex 1 Mg/4 Ml Inj. IVP 03/06/18 16:12 1 mg O ONE Administration Bumetanide 2 mg 03/07/18 21:00 03/10/18 21:33 Bumex 1 Mg/4 Ml Inj. IVP Not Given QID [facility] Bumetanide 2 mg 03/08/18 15:00 03/09/18 04:06 Bumex 1 Mg/4 Ml Inj. IVP Not Given Q6HR [facility] Bumetanide 1 mg 03/09/18 09:00 03/10/18 08:16 Bumex 1 Mg/4 Ml Inj. IVP 1 mg BID WILLAM Administration Bumetanide 1 mg 03/09/18 14:33 03/09/18 15:41 Bumex 1 Mg/4 Ml Inj. IVP 03/09/18 14:34 1 mg O ONE Administration Bumetanide 2 mg 03/10/18 16:07 03/10/18 20:15 Bumex 1 Mg Tab PO 2 mg [id number] WILLAM Administration Carvedilol 3.125 mg 03/07/18 10:53 03/10/18 07:52 Coreg PO 3.125 mg BIDWM [facility] Administration Device 1 each 03/07/18 12:57 03/07/18 12:59 Optichamber MC 03/07/18 12:58 1 each O ONE Administration Heparin Sodium (Beef Lung) 6,000 unit 03/06/18 17:04 03/06/18 17:22 Heparin Bolus IVP 03/06/18 17:05 6,000 unit O ONE Administration Heparin Sodium (Beef Lung) 5,000 unit 03/06/18 22:04 03/06/18 22:10 Heparin Bolus IVP 03/06/18 22:05 5,000 unit O ONE Administration Heparin Sodium (Beef Lung) 2,000 unit 03/07/18 09:00 03/07/18 09:21 Heparin Bolus IVP 03/07/18 09:01 2,000 unit O ONE Administration Heparin Sodium (Porcine) 1 each 03/06/18 16:17 Pharmacy Consult - Heparin 03/06/18 16:18 ONE TIME ONE Heparin Sodium (Porcine) 5,000 units 03/09/18 09:00 03/09/18 21:31 Heparin Sq SQ 5,000 units Q12HR WILLAM Administration Bumetanide 25 mg/ IV Solution 100 mls @ 2 mls/hr 03/06/18 16:15 03/07/18 18: 19 IV Not Given Q24H WILLAM Heparin Sodium (Porcine) 20,000 unit in 500 mls @ 30 mls/hr 03/06/18 17:05 14:00 Heparin Drip IV Infused .[id number] WILLAM Titration Protocol 1,200 UNIT/HR Amiodarone HCl 900 mg/ Sodium 500 mls @ 16.66 mls/hr 03/07/18 00:31 03/08/18 12:41 Chloride IV Not Given .Q24H WILLAM 0.5 MG/MIN Amiodarone HCl 450 mg/ Sodium 250 mls @ 33.33 mls/hr 03/06/18 18:30 03/07/18 02:11 Chloride IV 03/07/18 00:30 Infused .[id number] WILLAM Infusion 1 MG/MIN Amiodarone HCl 150 mg/ Sodium 103 mls @ 618 mls/hr 03/06/18 18:20 03/06/18 19 :59 Chloride IV 03/06/18 18:29 Infused O ONE Infusion Heparin Sodium (Porcine) 20,000 unit in 500 mls @ 35 mls/hr 03/07/18 09:00 09:19 Heparin Drip IV Not Given .[id number] WILLAM Protocol 1,400 UNIT/HR Sodium Chloride 1,000 mls @ 50 mls/hr 03/07/18 14:30 03/08/18 06:17 Normal Saline IV 03/08/18 00:30 50 mls/hr .Q20H WILLAM Infusion Cefazolin Sodium 1 g/ Sodium 100 mls @ 200 mls/hr 03/11/18 01:00 03/11/18 09: 37 Chloride IV 03/11/18 09:29 Infused Q8HR WILLAM Infusion Losartan Potassium 25 mg 03/07/18 11:00 03/08/18 12:50 Cozaar PO 25 mg DAILY WILLAM Administration Magnesium Hydroxide 30 ml 03/07/18 12:50 Mom PO DAILY PRN Constipation Mirabegron 50 mg 03/07/18 09:00 03/08/18 08:38 Myrbetriq PO 50 mg DAILY WILLAM Administration Morphine Sulfate 2 - 4 mg 03/07/18 14:20 Morphine Sulfate Inj IVP 03/08/18 14:19 Q2H PRN Pain Ondansetron HCl 4 mg 03/06/18 18:28 Zofran IVP Q6H PRN Nausea &/or vomiting Pharmacy Consult 1 each 03/11/18 15:34 Pharmacy Consult - Fall Risk 03/11/18 15:35 ONE TIME ONE Potassium Chloride 20 meq 03/08/18 21:23 03/08/18 22:08 K-Dur 20 Meq Tablet PO 03/08/18 21:24 20 meq O ONE Administration Potassium Chloride 20 meq 03/09/18 14:33 03/11/18 08:59 K-Dur 20 Meq Tablet PO 20 meq WB WILLAM Administration Tamsulosin HCl 0.4 mg 03/07/18 18:00 03/08/18 19:04 Flomax PO 0.4 mg 1800 WILLAM Administration - Urinary Catheter Management Urethral Cath placed during this visit: no Results 03/12/18 04:22 03/12/18 04:22 CBC 03/12/18 Range/Units 04:22 WBC 19.1 H (4.5-11.0) T/MM3 RBC 3.94 L (4.50-5.90) M/MM3 Hgb 12.9 L (13.5-17.5) GM/DL Hct 39.4 L (41-53) % Plt Count 146 (130-400) T/MM3 Comprehensive Metabolic Panel 03/12/18 Range/Units 04:22 Sodium 136 (134-144) MEQ/L Potassium 5.2 H D (3.6-5) MEQ/L Chloride 95 L (98-107) MEQ/L Carbon Dioxide 24 (22-30) MEQ/L BUN 84.0 H* (9-20) MG/DL Creatinine 3.3 H D (0.8-1.5) mg/dL Glucose 124 H (75-110) MG/DL Calcium 8.7 (8.4-10.2) MG/DL Intake and Output 03/11/18 03/12/18 03/12/18 22:59 06:59 14:59 Intake Total 410 / 410 290 / 290 Output Total 100 / 100 175 / 175 Balance 310 / 310 115 / 115 Intake: Oral 410 / 410 290 / 290 Output: Urine Amount (Catheter) 100 / 100 175 / 175 Other: Urine Appearance Cloudy Clear Urine Color Straw Dark Yellow Urine Odor Normal Assessment and Plan - Assessment and Plan (1) Cardiomyopathy Current visit: Yes Status: Chronic (2) HTN (hypertension) Current visit: Yes Status: Chronic (3) CAD (coronary artery disease) Current visit: Yes Status: Chronic (4) CKD (chronic kidney disease) Current visit: Yes Status: Chronic (5) Hyperlipidemia Current visit: Yes Status: Chronic (6) Acute dyspnea Current visit: No Status: Acute (7) Acute systolic CHF (congestive heart failure) Current visit: Yes Status: Acute (8) SVT (supraventricular tachycardia) Current visit: No Status: Acute (9) NSTEMI (non-ST elevated myocardial infarction) Current visit: Yes Status: Acute - Attestation Attestation Narrative: Patient was examined by my PRESCHOOL DIRECTORReagan and the findings and clinical results of diagnostics were discussed and together we agreed on the plan of care. I agree with the plan of care. Hospital Course Summary Disclaimer: The visit summary below is not to be considered part of the above Progress Note.
[2018-03-08] MEDS: AMIODARONE 200 MG TABLET PO SCH (22:08)
[2018-03-08] MEDS: ATORVASTATIN 20 MG TABLET PO SCH (22:09)
[2018-03-08] MEDS: ACETAMINOPHEN 325 MG TABLET PO PRN (22:12)
[2018-03-09] MEDS: LEVOTHYROXINE 125 MCG TABLET PO SCH (06:09)
--- NOTE | 2018-03-09 07:25 | Cardiology Progress Note ---
<Pam Simental - Last Filed: 03/09/18 14:45> Subjective Principal diagnosis: SCHF, NSTEMI Interval history: Mirza is seen in follow up for NSTEMI, SVT, sustained VT. He required cardioversion at bedside. He is upright in bed today with his parents at bedside. He reports feeling well , dyspnea better from admission but about the same as yesterday. Parents report a noticeable reduction in his right LE edema. Denies palpitations. Pt admits drinking 6-12 beers almost daily prior to one year ago when he went to live at the facility he was admitted from. Discussed with him contributing factor of ETOH and cardiomyopathy, educated to continue ETOH cessation. Exam Vital signs: Temperature 98.4 F 03/09/18 00:00 Pulse Rate 96 03/09/18 04:00 Respiratory Rate 17 03/09/18 03:30 Blood Pressure 86/54 03/09/18 03:29 Pulse Oximetry 92 03/09/18 03:30 Inpatient Medications: Generic Name Dose Route Start Last Admin Trade Name Freq PRN Reason Stop Dose Admin Acetaminophen 650 mg 03/06/18 18:27 Tylenol PO Q5H PRN Pain Acetaminophen 325 - 650 mg 03/07/18 14:20 03/08/18 22:12 Tylenol PO 325 mg Q5H PRN Administration Pain Hydrocodone Bitart/Acetaminophen 1 - 2 tab 03/07/18 14:20 03/08/18 16:58 [place] 5/325 PO 1 tab Q5H PRN Administration Pain Al Hydroxide/Mg Hydroxide 30 ml 03/07/18 14:20 Maalox Plus PO Q3H PRN Indigestion Amiodarone HCl 200 mg 03/08/18 21:25 03/08/18 22:08 Pacerone PO 200 mg BID [facility] Administration Aspirin 81 mg 03/07/18 09:00 03/08/18 08:39 Ecotrin PO 81 mg DAILY [facility] Administration Atorvastatin Calcium 20 mg 03/08/18 21:00 03/08/18 22:09 Lipitor PO 20 mg HS [facility] Administration Atropine Sulfate 0.5 mg 03/07/18 14:20 Atropine IVP Q5M PRN Bradycardia Bisacodyl 5 - 10 mg 03/07/18 14:20 Dulcolax PO DAILY PRN Constipation Bisacodyl 10 mg 03/07/18 14:20 Dulcolax RECTALLY DAILY PRN Constipation Budesonide/Formoterol Fumarate 2 puff 03/07/18 12:39 03/08/18 19:47 Symbicort Inhaler ORAL INH 2 puff BID [facility] Administration Bumetanide 2 mg 03/08/18 15:00 03/09/18 04:06 Bumex 1 Mg/4 Ml Inj. IVP Not Given Q6HR [facility] Bumetanide 1 mg 03/09/18 09:00 Bumex 1 Mg/4 Ml Inj. IVP BID [facility] Carvedilol 3.125 mg 03/07/18 10:53 03/08/18 17:39 Coreg PO 3.125 mg BIDWM [facility] Administration Clopidogrel Bisulfate 75 mg 03/07/18 09:00 03/08/18 08:39 Plavix PO 75 mg DAILY [facility] Administration Docusate Sodium 100 mg 03/07/18 21:00 03/08/18 20:50 Colace PO 100 mg BID [facility] Administration Docusate Sodium 100 mg 03/07/18 12:50 Colace PO BID PRN Heparin Sodium (Porcine) 5,000 units 03/09/18 09:00 Heparin Sq SQ Q12HR [facility] Levothyroxine Sodium 250 mcg 03/08/18 06:30 03/09/18 06:09 Synthroid PO 250 mcg SUSA@0630 [facility] Administration Levothyroxine Sodium 125 mcg 03/10/18 06:30 Synthroid PO MOTUWETHFR@0630 [facility] Lorazepam 0.5 - 1 mg 03/07/18 14:20 Ativan PO Q4H PRN Anxiety Lorazepam 0.5 - 1 mg 03/07/18 14:20 Ativan Inj IVP Q4H PRN Anxiety Magnesium Hydroxide 30 ml 03/07/18 12:50 Mom PO DAILY PRN Constipation Magnesium Hydroxide 30 ml 03/07/18 14:20 Mom PO DAILY PRN Constipation Metoclopramide HCl 5 - 10 mg 03/07/18 14:20 Reglan IVP Q6H PRN Nausea &/or vomiting Mirabegron 50 mg 03/07/18 09:00 03/08/18 08:38 Myrbetriq PO 50 mg DAILY [facility] Administration Morphine Sulfate 2 - 4 mg 03/07/18 14:20 Morphine Sulfate Inj IVP Q5M PRN Angina Nitroglycerin 0.4 mg 03/07/18 14:20 Nitrostat SL Q5M PRN Angina Ondansetron HCl 4 mg 03/06/18 18:28 Zofran IVP Q6H PRN Nausea &/or vomiting Ondansetron HCl 4 mg 03/07/18 14:20 Zofran IVP Q6H PRN Nausea &/or vomiting Promethazine HCl 12.5 - 25 mg 03/07/18 14:20 Phenergan Inj IVP Q6HR PRN Nausea &/or vomiting Ranitidine HCl 150 mg 03/07/18 18:00 03/08/18 19:04 Zantac PO 150 mg 1800 [facility] Administration Tamsulosin HCl 0.4 mg 03/07/18 18:00 03/08/18 19:04 Flomax PO 0.4 mg 1800 [facility] Administration Tramadol HCl 50 mg 03/06/18 18:28 Ultram PO Q6H PRN Pain Discontinued Medications Generic Name Dose Route Start Last Admin Trade Name Freq PRN Reason Stop Dose Admin Adenosine 6 mg 03/06/18 16:02 03/06/18 16:02 Adenocard IVP 03/06/18 16:03 6 mg O ONE Administration Adenosine 12 mg 03/06/18 16:06 03/06/18 16:06 Adenocard IVP 03/06/18 16:07 12 mg O ONE Administration Atorvastatin Calcium 20 mg 03/07/18 18:00 03/07/18 18:11 Lipitor PO 20 mg 1800 [facility] Administration Budesonide/Formoterol Fumarate 2 puff 03/07/18 21:00 Symbicort Inhaler ORAL INH BID [facility] Bumetanide 1 mg 03/06/18 16:09 03/06/18 18:08 Bumex 1 Mg/4 Ml Inj. IVP 03/06/18 16:10 1 mg O ONE Administration Bumetanide 1 mg 03/06/18 16:10 03/06/18 18:09 Bumex 1 Mg/4 Ml Inj. IVP 03/06/18 16:11 1 mg O ONE Administration Bumetanide 1 mg 03/06/18 16:11 03/06/18 16:11 Bumex 1 Mg/4 Ml Inj. IVP 03/06/18 16:12 1 mg O ONE Administration Bumetanide 2 mg 03/07/18 21:00 03/08/18 08:35 Bumex 1 Mg/4 Ml Inj. IVP 2 mg QID [facility] Administration Device 1 each 03/07/18 12:57 03/07/18 12:[facility] 03/07/18 12:58 1 each O ONE Administration Heparin Sodium (Beef Lung) 6,000 unit 03/06/18 17:04 03/06/18 17:22 Heparin Bolus IVP 03/06/18 17:05 6,000 unit O ONE Administration Heparin Sodium (Beef Lung) 5,000 unit 03/06/18 22:04 03/06/18 22:10 Heparin Bolus IVP 03/06/18 22:05 5,000 unit O ONE Administration Heparin Sodium (Beef Lung) 2,000 unit 03/07/18 09:00 03/07/18 09:21 Heparin Bolus IVP 03/07/18 09:01 2,000 unit O ONE Administration Heparin Sodium (Porcine) 1 each 03/06/18 16:17 Pharmacy Consult - Heparin 03/06/18 16:18 ONE TIME ONE Bumetanide 25 mg/ IV Solution 100 mls @ 2 mls/hr 03/06/18 16:15 03/07/18 18: 19 IV Not Given Q24H [facility] Heparin Sodium (Porcine) 20,000 unit in 500 mls @ 30 mls/hr 03/06/18 17:05 14:00 Heparin Drip IV Infused .[id number] [facility] Titration Protocol 1,200 UNIT/HR Amiodarone HCl 900 mg/ Sodium 500 mls @ 16.66 mls/hr 03/07/18 00:31 03/08/18 12:41 Chloride IV Not Given .Q24H [facility] 0.5 MG/MIN Amiodarone HCl 450 mg/ Sodium 250 mls @ 33.33 mls/hr 03/06/18 18:30 03/07/18 02:11 Chloride IV 03/07/18 00:30 Infused .[id number] [facility] Infusion 1 MG/MIN Amiodarone HCl 150 mg/ Sodium 103 mls @ 618 mls/hr 03/06/18 18:20 03/06/18 19 :59 Chloride IV 03/06/18 18:29 Infused O ONE Infusion Heparin Sodium (Porcine) 20,000 unit in 500 mls @ 35 mls/hr 03/07/18 09:00 09:19 Heparin Drip IV Not Given .[id number] [facility] Protocol 1,400 UNIT/HR Sodium Chloride 1,000 mls @ 50 mls/hr 03/07/18 14:30 03/08/18 06:17 Normal Saline IV 03/08/18 00:30 50 mls/hr .Q20H [facility] Infusion Losartan Potassium 25 mg 03/07/18 11:00 03/08/18 12:50 Cozaar PO 25 mg DAILY [facility] Administration Morphine Sulfate 2 - 4 mg 03/07/18 14:20 Morphine Sulfate Inj IVP 03/08/18 14:19 Q2H PRN Pain Potassium Chloride 20 meq 03/08/18 21:23 03/08/18 22:08 K-Dur 20 Meq Tablet PO 03/08/18 21:24 20 meq O ONE Administration - Constitutional no acute distress - Routine HEENT Exam Head: Present: normocephalic, atraumatic Eye: Present: PERRL, conjunctivae pink ENT: Present: mucous membranes moist (poor dentation) - Routine Neck Exam Absent: carotid bruit, thyromegaly - Routine Respiratory Exam Present: accessory muscle use, CTA bilaterally - Routine Cardiovascular Exam Present: RRR, no murmur - Routine Abdominal Exam Present: soft, normoactive bowel sounds, distended - Routine Extremities Exam Present: edema (1+ RLE) - Routine Skin Exam Present: intact, dry - Routine Neurological Exam Present: alert, oriented X3, facial asymmetry - Routine Psychiatric Exam Present: normal affect, cooperative - Urinary Catheter Management Urethral Cath placed during this visit: yes Insertion date: 03/06/18 Insertion time: 16:15 Results 03/09/18 04:23 03/09/18 04:23 Cardiac Enzymes 03/09/18 Range/Units 04:23 AST 77 H D (17-59) U/L Troponin I 0.412 H (0-0.12) ng/ml CBC 03/09/18 Range/Units 04:23 WBC 11.6 H (4.5-11.0) T/MM3 RBC 4.20 L (4.50-5.90) M/MM3 Hgb 13.8 (13.5-17.5) GM/DL Hct 41.5 (41-53) % Plt Count 126 L (130-400) T/MM3 Neut # (Auto) 8.4 H (1.8-7.7) T/MM3 Lymph # (Auto) 1.6 (1-4.8) T/MM3 Frontier # (Auto) 1.1 H (0-0.8) T/MM3 Eos # (Auto) 0.5 (0-0.5) T/MM3 Baso # (Auto) 0.1 (0-0.2) T/MM3 Comprehensive Metabolic Panel 03/09/18 Range/Units 04:23 Sodium 140 (134-144) MEQ/L Potassium 3.7 (3.6-5) MEQ/L Chloride 98 (98-107) MEQ/L Carbon Dioxide 28 (22-30) MEQ/L BUN 47.0 H (9-20) MG/DL Creatinine 2.3 H D (0.8-1.5) mg/dL Glucose 111 H (75-110) MG/DL Calcium 8.6 (8.4-10.2) MG/DL AST 77 H D (17-59) U/L ALT 189 H (1-50) U/L Alkaline Phosphatase 91 (38-126) U/L Total Protein 6.5 (6.3-8.2) g/dL Albumin 3.8 (3.5-5.0) g/dL Intake and Output 03/08/18 03/09/18 03/09/18 22:59 06:59 14:59 Intake Total 430 / 430 60 / 60 Output Total 511 / 511 196 / 196 Balance -81 / -81 -136 / -136 Intake: Oral 430 / 430 60 / 60 Output: Urine Amount (Catheter) 511 / 511 196 / 196 Other: Urine Appearance Clear Clear Urine Color Yellow Yellow Assessment and Plan - Assessment and Plan (1) Cardiomyopathy Current visit: No Status: Chronic (2) HTN (hypertension) Current visit: No Status: Chronic (3) CAD (coronary artery disease) Current visit: No Status: Chronic (4) CKD (chronic kidney disease) Current visit: No Status: Chronic (5) Hyperlipidemia Current visit: No Status: Acute (6) Acute dyspnea Current visit: Yes Status: Acute (7) Acute systolic CHF (congestive heart failure) Current visit: Yes Status: Acute (8) SVT (supraventricular tachycardia) Current visit: Yes Status: Acute (9) NSTEMI (non-ST elevated myocardial infarction) Current visit: Yes Status: Acute (10) V-tach Current visit: Yes Status: Acute (11) 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 on 4l/NC - reduced to 3L/NC by RN - Reported acute dyspnea but O2 sats stable - Chest xray shows mild pulmonary edema - Bumex 3mg IVP then 0.5mg/ hr drip Acute systolic CHF (congestive heart failure) - Stat Echo: EF 10-15%, severe MR/ TR - Chest xray shows mild pulmonary edema - Bumex 3mg IVP then 0.5mg/ hr drip - BNP 00436 Cardiomyopathy - Stat Echo: EF 10-15%, severe MR/ TR HTN (hypertension) CAD (coronary artery disease) CKD (chronic kidney disease) - BUN 28/SCr 1.98 (base line 1.8) Hyperlipidemia 03/07/18 - Continue Aspirin and Plavix - Resume home ARB - Add Coreg 3.125mg po BID - Continue home Atorvastatin - Left heart cath today due to sustained VTach - Will need BiV/ICD placement on Saturday03/08/18 -continue Coreg 3.125mg bid, has maintained SR on tele today - PO amiodarone 200mg bid - Decrease bumex to 1mg IV bid, start in AM - K 3.4 today, replace with low dose due to elevated Cr and ARB, 20meq once - DC losartan due to hypotension and elevated Cr - bp borderline to hypotensive today, monitor closely - plan primary prevention device implant Saturday - repeat cxr, bnp, cmp and cbc in AM 03/09/18 Continue Coreg 3.125mg bid, Amiodarone 200mg bid No more VT or PVC's seen on tele, maintained SR restart ARB when bp improved Increase bumex to 1mg IV TID, UO down today, BP stable, pt needs further diuresis, monitor pressures K replaced 20meq x1 03/08, will order 20meq daily Chest xray today shows continued mild pulmonary vascular congestion BNP today 6210, improved from [address]608 on admission coronaries with nonobstructive disease on cath Saturday, pt admits heavy ETOH consumption 6-12 beers daily for many years prior to one year ago. Device implant tomorrow afternoon, bi-v AICD; hold sq heparin after today's PM dose; pt verbalizes understanding of procedure and need creatinine up today 2.4, continue to monitor closely Hospital Course Summary Disclaimer: The visit summary below is not to be considered part of the above Progress Note. <Jose C Stahl - Last Filed: 03/12/18 08:10> Exam Vital signs: Temperature 96.5 F L 03/11/18 19:45 Pulse Rate 95 03/12/18 04:00 Respiratory Rate 22 03/12/18 03:06 Blood Pressure 104/71 03/12/18 03:06 Pulse Oximetry 97 03/12/18 03:06 Inpatient Medications: Generic Name Dose Route Start Last Admin Trade Name Freq PRN Reason Stop Dose Admin Acetaminophen 325 - 650 mg 03/07/18 14:20 03/08/18 22:12 Tylenol PO 325 mg Q5H PRN Administration Pain Hydrocodone Bitart/Acetaminophen 1 - 2 tab 03/07/18 14:20 03/11/18 19:26 [place] 5/325 PO 1 tab Q5H PRN Administration Pain Al Hydroxide/Mg Hydroxide 30 ml 03/07/18 14:20 Maalox Plus PO Q3H PRN Indigestion Albuterol Sulfate 2.5 mg 03/12/18 02:04 03/12/18 02:06 Proventil Neb (0.083%) AEROSOL 2.5 mg Q2HR PRN Administration Albuterol/Ipratropium 3 ml 03/10/18 11:00 03/12/18 07:50 Duoneb AEROSOL 3 ml RTQID [facility] Administration Amiodarone HCl 200 mg 03/08/18 21:25 03/11/18 20:22 Pacerone PO 200 mg BID [facility] Administration Aspirin 81 mg 03/07/18 09:00 03/11/18 09:00 Ecotrin PO 81 mg DAILY [facility] Administration Atorvastatin Calcium 20 mg 03/08/18 21:00 03/11/18 21:39 Lipitor PO 20 mg HS [facility] Administration Atropine Sulfate 0.5 mg 03/07/18 14:20 Atropine IVP Q5M PRN Bradycardia Bisacodyl 5 - 10 mg 03/07/18 14:20 Dulcolax PO DAILY PRN Constipation Bisacodyl 10 mg 03/07/18 14:20 Dulcolax RECTALLY DAILY PRN Constipation Budesonide/Formoterol Fumarate 2 puff 03/07/18 12:39 03/11/18 20:43 Symbicort Inhaler ORAL INH 2 puff BID [facility] Administration Carvedilol 6.25 mg 03/10/18 16:37 03/11/18 19:24 Coreg PO 6.25 mg BIDWM [facility] Administration Clopidogrel Bisulfate 75 mg 03/07/18 09:00 03/11/18 08:59 Plavix PO 75 mg DAILY [facility] Administration Docusate Sodium 100 mg 03/07/18 21:00 03/11/18 20:22 Colace PO 100 mg BID [facility] Administration Docusate Sodium 100 mg 03/07/18 12:50 Colace PO BID PRN Heparin Sodium (Porcine) 5,000 units 03/11/18 09:00 03/11/18 20:22 Heparin Sq SQ 5,000 units Q12HR [facility] Administration Levothyroxine Sodium 250 mcg 03/08/18 06:30 03/09/18 06:09 Synthroid PO 250 mcg SUSA@0630 [facility] Administration Levothyroxine Sodium 125 mcg 03/10/18 06:30 03/12/18 06:07 Synthroid PO 125 mcg MOTUWETHFR@0630 [facility] Administration Lorazepam 0.5 - 1 mg 03/07/18 14:20 03/10/18 22:56 Ativan PO 1 mg Q4H PRN Administration Anxiety Lorazepam 0.5 - 1 mg 03/07/18 14:20 03/12/18 03:30 Ativan Inj IVP 0.5 mg Q4H PRN Administration Anxiety Magnesium Hydroxide 30 ml 03/07/18 14:20 Mom PO DAILY PRN Constipation Metoclopramide HCl 5 - 10 mg 03/07/18 14:20 Reglan IVP Q6H PRN Nausea &/or vomiting Minocycline HCl 100 mg 03/11/18 21:00 03/11/18 20:22 Minocin PO 03/18/18 20:59 100 mg BID [facility] Administration Morphine Sulfate 2 - 4 mg 03/07/18 14:20 Morphine Sulfate Inj IVP Q5M PRN Angina Nitroglycerin 0.4 mg 03/07/18 14:20 Nitrostat SL Q5M PRN Angina Ondansetron HCl 4 mg 03/07/18 14:20 Zofran IVP Q6H PRN Nausea &/or vomiting Promethazine HCl 12.5 - 25 mg 03/07/18 14:20 Phenergan Inj IVP Q6HR PRN Nausea &/or vomiting Ranitidine HCl 150 mg 03/07/18 18:00 03/11/18 19:24 Zantac PO 150 mg 1800 [facility] Administration Sodium Chloride 10 - 80 ml 03/09/18 14:34 03/10/18 07:52 Iv Flush IV 20 ml PRN PRN Administration Flushing Sodium Chloride 10 ml 03/10/18 20:02 Iv Flush IV PRN PRN Flushing Tramadol HCl 50 mg 03/06/18 18:28 Ultram PO Q6H PRN Pain Discontinued Medications Generic Name Dose Route Start Last Admin Trade Name Freq PRN Reason Stop Dose Admin Acetaminophen 650 mg 03/06/18 18:27 Tylenol PO Q5H PRN Pain Adenosine 6 mg 03/06/18 16:02 03/06/18 16:02 Adenocard IVP 03/06/18 16:03 6 mg O ONE Administration Adenosine 12 mg 03/06/18 16:06 03/06/18 16:06 Adenocard IVP 03/06/18 16:07 12 mg O ONE Administration Atorvastatin Calcium 20 mg 03/07/18 18:00 03/10/18 21:34 Lipitor PO Not Given 1800 [facility] Budesonide/Formoterol Fumarate 2 puff 03/07/18 21:00 Symbicort Inhaler ORAL INH BID [facility] Bumetanide 1 mg 03/06/18 16:09 03/06/18 18:08 Bumex 1 Mg/4 Ml Inj. IVP 03/06/18 16:10 1 mg O ONE Administration Bumetanide 1 mg 03/06/18 16:10 03/06/18 18:09 Bumex 1 Mg/4 Ml Inj. IVP 03/06/18 16:11 1 mg O ONE Administration Bumetanide 1 mg 03/06/18 16:11 03/06/18 16:11 Bumex 1 Mg/4 Ml Inj. IVP 03/06/18 16:12 1 mg O ONE Administration Bumetanide 2 mg 03/07/18 21:00 03/10/18 21:33 Bumex 1 Mg/4 Ml Inj. IVP Not Given QID [facility] Bumetanide 2 mg 03/08/18 15:00 03/09/18 04:06 Bumex 1 Mg/4 Ml Inj. IVP Not Given Q6HR [facility] Bumetanide 1 mg 03/09/18 09:00 03/10/18 08:16 Bumex 1 Mg/4 Ml Inj. IVP 1 mg BID [facility] Administration Bumetanide 1 mg 03/09/18 14:33 03/09/18 15:41 Bumex 1 Mg/4 Ml Inj. IVP 03/09/18 14:34 1 mg O ONE Administration Bumetanide 2 mg 03/10/18 16:07 03/10/18 20:15 Bumex 1 Mg Tab PO 2 mg [id number] [facility] Administration Carvedilol 3.125 mg 03/07/18 10:53 03/10/18 07:52 Coreg PO 3.125 mg BIDWM [facility] Administration Device 1 each 03/07/18 12:57 03/07/18 12:59 Optichamber 03/07/18 12:58 1 each O ONE Administration Heparin Sodium (Beef Lung) 6,000 unit 03/06/18 17:04 03/06/18 17:22 Heparin Bolus IVP 03/06/18 17:05 6,000 unit O ONE Administration Heparin Sodium (Beef Lung) 5,000 unit 03/06/18 22:04 03/06/18 22:10 Heparin Bolus IVP 03/06/18 22:05 5,000 unit O ONE Administration Heparin Sodium (Beef Lung) 2,000 unit 03/07/18 09:00 03/07/18 09:21 Heparin Bolus IVP 03/07/18 09:01 2,000 unit O ONE Administration Heparin Sodium (Porcine) 1 each 03/06/18 16:17 Pharmacy Consult - Heparin 03/06/18 16:18 ONE TIME ONE Heparin Sodium (Porcine) 5,000 units 03/09/18 09:00 03/09/18 21:31 Heparin Sq SQ 5,000 units Q12HR [facility] Administration Bumetanide 25 mg/ IV Solution 100 mls @ 2 mls/hr 03/06/18 16:15 03/07/18 18: 19 IV Not Given Q24H [facility] Heparin Sodium (Porcine) 20,000 unit in 500 mls @ 30 mls/hr 03/06/18 17:05 14:00 Heparin Drip IV Infused .[id number] [facility] Titration Protocol 1,200 UNIT/HR Amiodarone HCl 900 mg/ Sodium 500 mls @ 16.66 mls/hr 03/07/18 00:31 03/08/18 12:41 Chloride IV Not Given .Q24H [facility] 0.5 MG/MIN Amiodarone HCl 450 mg/ Sodium 250 mls @ 33.33 mls/hr 03/06/18 18:30 03/07/18 02:11 Chloride IV 03/07/18 00:30 Infused .[id number] [facility] Infusion 1 MG/MIN Amiodarone HCl 150 mg/ Sodium 103 mls @ 618 mls/hr 03/06/18 18:20 03/06/18 19 :59 Chloride IV 03/06/18 18:29 Infused O ONE Infusion Heparin Sodium (Porcine) 20,000 unit in 500 mls @ 35 mls/hr 03/07/18 09:00 09:19 Heparin Drip IV Not Given .[id number] [facility] Protocol 1,400 UNIT/HR Sodium Chloride 1,000 mls @ 50 mls/hr 03/07/18 14:30 03/08/18 06:17 Normal Saline IV 03/08/18 00:30 50 mls/hr .Q20H [facility] Infusion Cefazolin Sodium 1 g/ Sodium 100 mls @ 200 mls/hr 03/11/18 01:00 03/11/18 09: 37 Chloride IV 03/11/18 09:29 Infused Q8HR [facility] Infusion Losartan Potassium 25 mg 03/07/18 11:00 03/08/18 12:50 Cozaar PO 25 mg DAILY [facility] Administration Magnesium Hydroxide 30 ml 03/07/18 12:50 Mom PO DAILY PRN Constipation Mirabegron 50 mg 03/07/18 09:00 03/08/18 08:38 Myrbetriq PO 50 mg DAILY [facility] Administration Morphine Sulfate 2 - 4 mg 03/07/18 14:20 Morphine Sulfate Inj IVP 03/08/18 14:19 Q2H PRN Pain Ondansetron HCl 4 mg 03/06/18 18:28 Zofran IVP Q6H PRN Nausea &/or vomiting Pharmacy Consult 1 each 03/11/18 15:34 Pharmacy Consult - Fall Risk 03/11/18 15:35 ONE TIME ONE Potassium Chloride 20 meq 03/08/18 21:23 03/08/18 22:08 K-Dur 20 Meq Tablet PO 03/08/18 21:24 20 meq O ONE Administration Potassium Chloride 20 meq 03/09/18 14:33 03/11/18 08:59 K-Dur 20 Meq Tablet PO 20 meq WB [facility] Administration Tamsulosin HCl 0.4 mg 03/07/18 18:00 03/08/18 19:04 Flomax PO 0.4 mg 1800 [facility] Administration - Urinary Catheter Management Urethral Cath placed during this visit: no Results 03/12/18 04:22 03/12/18 04:22 CBC 03/12/18 Range/Units 04:22 WBC 19.1 H (4.5-11.0) T/MM3 RBC 3.94 L (4.50-5.90) M/MM3 Hgb 12.9 L (13.5-17.5) GM/DL Hct 39.4 L (41-53) % Plt Count 146 (130-400) T/MM3 Comprehensive Metabolic Panel 03/12/18 Range/Units 04:22 Sodium 136 (134-144) MEQ/L Potassium 5.2 H D (3.6-5) MEQ/L Chloride 95 L (98-107) MEQ/L Carbon Dioxide 24 (22-30) MEQ/L BUN 84.0 H* (9-20) MG/DL Creatinine 3.3 H D (0.8-1.5) mg/dL Glucose 124 H (75-110) MG/DL Calcium 8.7 (8.4-10.2) MG/DL Intake and Output 03/11/18 03/12/18 03/12/18 22:59 06:59 14:59 Intake Total 410 / 410 290 / 290 Output Total 100 / 100 175 / 175 Balance 310 / 310 115 / 115 Intake: Oral 410 / 410 290 / 290 Output: Urine Amount (Catheter) 100 / 100 175 / 175 Other: Urine Appearance Cloudy Clear Urine Color Straw Dark Yellow Urine Odor Normal Assessment and Plan - Assessment and Plan (1) Cardiomyopathy Current visit: Yes Status: Chronic (2) HTN (hypertension) Current visit: Yes Status: Chronic (3) CAD (coronary artery disease) Current visit: Yes Status: Chronic (4) CKD (chronic kidney disease) Current visit: Yes Status: Chronic (5) Hyperlipidemia Current visit: Yes Status: Chronic (6) Acute dyspnea Current visit: No Status: Acute (7) Acute systolic CHF (congestive heart failure) Current visit: Yes Status: Acute (8) SVT (supraventricular tachycardia) Current visit: No Status: Acute (9) NSTEMI (non-ST elevated myocardial infarction) Current visit: Yes Status: Acute - Attestation Attestation Narrative: 03/12/18 08:10 Patient was examined by my CUSTOMER ACCOUNT SPECIALISTReagan and the findings and clinical results of diagnostics were discussed and together we agreed on the plan of care. I agree with the plan of care. Hospital Course Summary Disclaimer: The visit summary below is not to be considered part of the above Progress Note.
[2018-03-09] MEDS: CARVEDILOL 3.125 MG TABLET PO SCH ×2 (09:59→18:07)
[2018-03-09] MEDS: AMIODARONE 200 MG TABLET PO SCH ×2 (10:00→21:32)
[2018-03-09] MEDS: ASPIRIN *EC* 81 MG TABLET PO SCH (10:00)
[2018-03-09] MEDS: HEPARIN SUB-Q 5,000units/0.5ml INJECTION SQ SCH ×2 (10:01→21:31)
[2018-03-09] MEDS: DOCUSATE SODIUM 100 MG CAPSULE PO SCH ×2 (10:01→22:05)
[2018-03-09] MEDS: CLOPIDOGREL 75 MG TABLET PO SCH (10:04)
--- NOTE | 2018-03-09 10:07 | XRay Report ---
INDICATION: chf PROCEDURE: CHEST 2-VIEWS UPRIGHT (PA & LAT) Encounter: Initial COMPARISON: March 06, 2018 FINDINGS: Small pleural effusions with bibasilar airspace opacities. No pneumothorax. Upper lobes are clear. Cardiac silhouette remains mild to moderately enlarged. Mediastinal contours are stable. Pulmonary vascularity appears slightly prominent. Impression: Stable chest with findings of mild pulmonary edema/CHF. .
[2018-03-09] MEDS: RANITIDINE 150 MG TABLET PO SCH (18:07)
[2018-03-09] MEDS: HYDROCODONE/APAP 5mg/325mg TABLET PO PRN (19:33)
[2018-03-09] MEDS: SALINE FLUSH 10ml SYRINGE IV PRN (21:32)
[2018-03-09] MEDS: ATORVASTATIN 20 MG TABLET PO SCH (21:32)
[2018-03-10] MEDS: LEVOTHYROXINE 125 MCG TABLET PO SCH (05:33)
[2018-03-10] MEDS: CARVEDILOL 3.125 MG TABLET PO SCH (07:52)
[2018-03-10] MEDS: SALINE FLUSH 10ml SYRINGE IV PRN (07:52)
[2018-03-10] MEDS: AMIODARONE 200 MG TABLET PO SCH ×2 (08:16→20:14)
[2018-03-10] MEDS: CLOPIDOGREL 75 MG TABLET PO SCH (08:16)
[2018-03-10] MEDS: ASPIRIN *EC* 81 MG TABLET PO SCH (08:16)
[2018-03-10] MEDS: DOCUSATE SODIUM 100 MG CAPSULE PO SCH ×2 (08:16→20:14)
--- NOTE | 2018-03-10 10:02 | Consult Note ---
Consult Information - Data of Consult Consult date: 03/10/18 Requesting Physician: Jose C Stahl MD Primary Care Provider: Mirza Stevens MD - Consult Narrative Reason for consult: Leukocytosis History of present illness: Mirza is a 57 yr old male with a known history of NSTEMI and SVT. He was admitted on 03/06 under the care of Dr. Stahl and had a successful cardioversion. He has known severe cardiomyopathy with an EF of 10% and is scheduled for pacemaker/defibrillator placement later today by Dr. Stahl. He has had persistent leukocytosis since admission. Given his continued elevated white count and tachycardia, he did meet sepsis criteria. The hospitalist services were consulted for medical evaluation and treatment. Morning labs are reviewed, white count 16.3, 82% neutrophils. Electrolytes are normal, BUN is 48 and creatinine of 2.2. ProBNP is elevated at 9080. He does continue to be tachycardic at approximately 112, and respiration rate 40, he is afebrile, blood pressure normal 114/73. He is seen this morning for initial consultation. He is in moderate amount of respiratory distress and currently on BiPAP. He is alert and does attempt to answer some questions however, has a significant amount of conversational dyspnea. He did does deny having any pain on examination. Existing comorbidities include the following- , severe cardiomyopathy, COPD, hypertension, schizophrenia, depression, cataracts, history of renal disease, history of CVA, former alcohol use, former tobacco dependence Past Medical History Medical History Updates: Hypertension. COPD. History of renal disease. Sleep apnea. Schizophrenia. Depression. History of CVA. Cataracts Surgical History: Left above the knee amputation. cataract surgery- Left (). Cardiac catheterization Family History: Unable to Obtain - Social History Smoking status: Former smoker Substance use type: does not use Alcohol intake: former Housing: [facility] Current residence: [facility] Social history: Currently resides at [facility] Primary care provider, Dr. Mirza Stevens Review of Systems Review of systems: Difficult to obtain a complete ROS due to respiratory distress. He does deny pain Medications Home Medications Medication Instructions Recorded Confirmed Type Aspirin *EC* [Ecotrin] 1 tab PO DAILY 07/19/17 03/06/18 History Atorvastatin Calcium 20 mg PO 1800 07/19/17 03/06/18 History Clopidogrel Bisulfate [Clopidogrel] 75 mg PO DAILY 07/19/17 03/06/18 History Docusate Sodium [Colace] 1 cap PO BID 07/19/17 03/06/18 History Finasteride [Proscar] 5 mg PO 1800 07/19/17 03/06/18 History Furosemide [Lasix 40 mg Tab] 1 tab PO DAILY 07/19/17 03/06/18 History Gabapentin 300 mg PO BID 07/19/17 03/06/18 History Isosorbide Mononitrate ER [Imdur] 30 mg PO DAILY 07/19/17 03/06/18 History Levothyroxine Sodium 125 mcg PO MOTUWETHFR@0630 07/19/17 03/06/18 History Losartan Potassium 25 mg PO DAILY 07/19/17 03/06/18 History Mirabegron [Myrbetriq] 50 mg PO DAILY 07/19/17 03/06/18 History Multivitamin [One Daily 1 each PO DAILY 07/19/17 03/06/18 History Multivitamin] Polyethylene Glycol 3350 [Miralax] 17 gm PO DAILY 07/19/17 03/06/18 History Potassium Chloride [K-Tab ER] 20 meq PO DAILY 07/19/17 03/06/18 History Tamsulosin [Flomax] 0.4 mg PO 1800 07/19/17 03/06/18 History raNITIdine HCl [Ranitidine HCl] 150 mg PO 1800 07/19/17 03/06/18 History Acetaminophen [Tylenol] 325 mg PO Q4H PRN 03/06/18 03/06/18 History Budesonide/Formoterol Fumarate 2 puff INH BID 03/06/18 03/06/18 History [Symbicort 160-4.5 Mcg Inhaler] Levothyroxine Tab [Synthroid] 250 mcg PO SUSA@0630 03/06/18 03/06/18 History Allergies Allergy/AdvReac Type Severity Reaction Status Date / Time No Known Allergies Allergy Verified 07/19/17 18:04 Exam Vital Signs: Temperature 97.9 F 03/10/18 08:00 Pulse Rate 112 H 03/10/18 08:00 Respiratory Rate 16 03/10/18 08:40 Blood Pressure 114/73 03/10/18 08:00 Pulse Oximetry 92 03/10/18 08:00 Telemetry Rhythm: Sinus Rhythm Height/Weight/BMI: Height 1.73 m Weight 94.3 kg Body Mass Index 35.0 - Constitutional Present: moderate distress, well nourished, well developed - Routine HEENT Exam Eye: Present: EOMI ENT: Present: mucous membranes moist, dentition normal - Routine Respiratory Exam Present: diminished air movement. Absent: wheezes - Routine Cardiovascular Exam Present: RRR, S1, S2, tachycardia. Absent: murmur - Routine Abdominal Exam Present: soft, non distended, distended. Absent: normoactive bowel sounds ( hypoactive), tenderness - Routine Extremities Exam Present: pulses intact (JAYNE) Comments: AKA- LLE - Routine Skin Exam Present: intact, dry, warm - Routine Neurological Exam Present: alert, CN II-XII intact, moving all extremities - Routine Psychiatric Exam Present: cooperative Results - Labs CBC & Chem 7: 03/10/18 07:11 03/10/18 07:11 Assessment and Plan (1) Leukocytosis Current visit: Yes Status: Acute Assessment and Plan: Impression Leukocytosis Tachycardia Elevated LFTs Cardiomyopathy- with acute systolic failure Non-STEMI V. tach hyperlipidemia Hypertension Coronary artery disease Schizophrenia Depression History of CVA Plan Continued cardiology care as per Dr. Stahl, planning for pacemaker/ defibrillator placement later today. Patient doesn't meet nursing sepsis criteria. Given tachycardia, tachypnea and leukocytosis. All 3 of these may be multifactorial including severe cardiomyopathy and respiratory distress. Will obtain UA, Lactate and Blood cultures, Chest Xray to rule out infectious etiology Given respiratory distress will consult pulmonary, Dr Gibbs for evaluation and recommendations Monitor renal function- known CKD- Mri Special Procedures Technologist 2.2 (Baseline Mri Special Procedures Technologist 1.6) Continues on scheduled Bumex for diuresis- Monitor renal function Appreciate medical consultation. Will continue to follow patient. At time if discharge medical care is to return to PCP in Dr Hilda Self Case discussed with attending, Dr Serna DVT Prophylaxis: SCD's Resuscitation Status: Full Code - Time spent with patient Time with patient PN: 35 minutes - Physician Narrative Physician: Jj Serna MD Narrative: Date: 03/10/18 Time: 0 Have independently interviewed and examined pt. Chart reviewed. Case discussed with my EAR MOLD LABORATORY TECHNICIAN. Above care plan developed with my supervision; agree with above. Breathing more short-using BiPAP for assistance at my interview. Does note congestion. No pain with breathing. Denies ab pain or nausea. Lungs: decreased CV: regular AB: soft distention, bs decreased Plan: UA without evidence for infection. CXR showing pulmonary prominence but no definitive infiltrate. BiPAP for respiratory support. Monitor white count. Do not see obvious infection at this time. Would hold on antibiotics. Hospital Course Summary Disclaimer: The visit summary below is not to be considered part of the above Progress Note. Hospital Course: Impression Leukocytosis Tachycardia Elevated LFTs Cardiomyopathy- with acute systolic failure Non-STEMI V. tach hyperlipidemia Hypertension Coronary artery disease Schizophrenia Depression History of CVA Plan Continued cardiology care as per Dr. Stahl, planning for pacemaker/ defibrillator placement later today. Patient doesn't meet nursing sepsis criteria. Given tachycardia, tachypnea and leukocytosis. All 3 of these may be multifactorial including severe cardiomyopathy and respiratory distress. Will obtain UA, Lactate and Blood cultures, Chest Xray to rule out infectious etiology Given respiratory distress will consult pulmonary, Dr Gibbs for evaluation and recommendations Monitor renal function- known CKD- Mri Special Procedures Technologist 2.2 (Baseline Mri Special Procedures Technologist 1.6) Continues on scheduled Bumex for diuresis- Monitor renal function Appreciate medical consultation. Will continue to follow patient. At time if discharge medical care is to return to PCP in Dr Hilda Self Case discussed with attending, Dr Serna
--- NOTE | 2018-03-10 11:03 | XRay Report ---
Indication: tachypnea PROCEDURE: XR chest 1V: Encounter: Initial Comparison: 03/09/2018 Findings: There is cardiomegaly and pulmonary vascular congestion with mild interstitial pulmonary edema in the mid to lower lung feliciano bilaterally. There is some inferior medial left basilar atelectasis versus small pleural effusion. Impression: Mild CHF with possible inferomedial left basilar atelectasis versus pleural effusion. .
[2018-03-10] MEDS: ALBUTEROL/IPRATROPIUM 2.5mg-0.5mg/3ml NEB AEROSOL SCH ×3 (11:28→21:34)
[2018-03-10] MEDS: LORazepam 0.5 MG TABLET PO PRN ×3 (12:35→22:56)
[2018-03-10] MEDS ORDERED: BUMETANIDE 1 MG TABLET PO SCH (16:07)
[2018-03-10] MEDS ORDERED: CEFAZOLIN 1 G INJECTION ONE (17:13)
[2018-03-10] MEDS ORDERED: LIDOCAINE 1% (10mg/ml) 30ml SDV INJ ONE (17:14)
[2018-03-10] MEDS ORDERED: MIDAZOLAM 2mg/2ml INJECTION ONE (17:14)
[2018-03-10] MEDS ORDERED: SALINE FLUSH 10ml SYRINGE ONE (17:14)
[2018-03-10] MEDS ORDERED: FentaNYL 250 MCG/5 ML INJECTION ONE (17:14)
[2018-03-10] MEDS ORDERED: BACITRACIN 50,000 UNIT INJECTION ONE (17:15)
[2018-03-10] MEDS ORDERED: NS 1,000 ML ONE (17:33)
[2018-03-10] MEDS ORDERED: SALINE FLUSH 10ml SYRINGE IV PRN (20:02)
[2018-03-10] MEDS: CARVEDILOL 6.25 MG TABLET PO SCH (20:14)
[2018-03-10] MEDS: ATORVASTATIN 20 MG TABLET PO SCH ×2 (20:14→21:34)
[2018-03-10] MEDS: RANITIDINE 150 MG TABLET PO SCH (20:15)
--- NOTE | 2018-03-10 21:44 | Pulmonology Consult Note ---
<KristanAmber D - Last Filed: 03/10/18 23:08> History of Present Illness Consult date: 03/10/18 Requesting physician: Jj Serna Reason for consult: dyspnea, COPD Chief complaint: SOB History of present illness: This is a 57 yo male with a history of schizophrenia who resides at [facility], CKD, stroke, COPD, HTN, cardiomyopathy, CAD with PCI, & PAD with LLE AKA. Per report he complained of respiratory distress and severe SOA when he woke up on the day prior to admit. He apperrently had been telling the staff and no one would believe him until the day of admit. Complained of dizziness and near syncope but denies chest pain or pressure, palpitations, N/ V. He have an did have a stat echo performed which showed his EF to be 10-15% with severe MR/TR. He underwent a HC with no new stent placements. Unfortunately he was also noted to be in sustain V tach and required cardioversion. Today he is requiring his Cpap to help with respiratory distress and remains tachycardic and tachypnic. We have been consulted for his respiratory issues and appreciate the consult. Review of Systems ROS unobtainable: other Review of systems: Pt on Cpap, unable to answer questions. Pertinent positives noted in the HPI. [facility] Patient Stated Medical History Cerebrovascular Accident Yes: 5 years ago Cataracts Yes Dental Problems Yes Heart Murmur Yes Hypertension Yes Myocardial Infarction Yes Bronchitis Yes Chronic Obstructive Pulmonary Yes Disease (COPD) Sleep Apnea Yes Other Respiratory Yes: HX ARDS Gastroesophageal Reflux Yes Disease Hx Benign Prostatic Yes Hyperplasia Hx Renal Disease Yes Cellulitis Yes: left lower leg Other Infectious Yes: gangrene left lower leg Blood Transfusions Yes Depression Yes Schizophrenia Yes Medical History Updates: Hypertension. COPD. History of renal disease. Sleep apnea. Schizophrenia. Depression. History of CVA. Cataracts Surgical History: Left above the knee amputation. cataract surgery- Left (). Cardiac catheterization - Social History Smoking status: Former smoker Substance use type: does not use Alcohol intake: former Alcohol intake frequency: does not drink Housing: long-term Household members: caregiver, other service: No Current occupational status: disabled Current occupational exposures/hazards: No Does patient use chewing tobacco?: No Current residence[place] Medications Home Medications Medication Instructions Recorded Confirmed Type Aspirin *EC* [Ecotrin] 1 tab PO DAILY 07/19/17 03/06/18 History Atorvastatin Calcium 20 mg PO 1800 07/19/17 03/06/18 History Clopidogrel Bisulfate [Clopidogrel] 75 mg PO DAILY 07/19/17 03/06/18 History Docusate Sodium [Colace] 1 cap PO BID 07/19/17 03/06/18 History Finasteride [Proscar] 5 mg PO 1800 07/19/17 03/06/18 History Furosemide [Lasix 40 mg Tab] 1 tab PO DAILY 07/19/17 03/06/18 History Gabapentin 300 mg PO BID 07/19/17 03/06/18 History Isosorbide Mononitrate ER [Imdur] 30 mg PO DAILY 07/19/17 03/06/18 History Levothyroxine Sodium 125 mcg PO MOTUWETHFR@0630 07/19/17 03/06/18 History Losartan Potassium 25 mg PO DAILY 07/19/17 03/06/18 History Mirabegron [Myrbetriq] 50 mg PO DAILY 07/19/17 03/06/18 History Multivitamin [One Daily 1 each PO DAILY 07/19/17 03/06/18 History Multivitamin] Polyethylene Glycol 3350 [Miralax] 17 gm PO DAILY 07/19/17 03/06/18 History Potassium Chloride [K-Tab ER] 20 meq PO DAILY 07/19/17 03/06/18 History Tamsulosin [Flomax] 0.4 mg PO 1800 07/19/17 03/06/18 History raNITIdine HCl [Ranitidine HCl] 150 mg PO 1800 07/19/17 03/06/18 History Acetaminophen [Tylenol] 325 mg PO Q4H PRN 03/06/18 03/06/18 History Budesonide/Formoterol Fumarate 2 puff INH BID 03/06/18 03/06/18 History [Symbicort 160-4.5 Mcg Inhaler] Levothyroxine Tab [Synthroid] 250 mcg PO SUSA@0630 03/06/18 03/06/18 History Allergies Allergy/AdvReac Type Severity Reaction Status Date / Time No Known Allergies Allergy Verified 07/19/17 18:04 Exam Vital signs: Temperature 98.0 F 03/10/18 16:00 Pulse Rate 107 H 03/10/18 16:00 Respiratory Rate 18 03/10/18 21:27 Blood Pressure 120/77 03/10/18 16:00 Pulse Oximetry 97 03/10/18 16:00 - Constitutional mild distress, morbidly obese - Routine HEENT Exam Head: Present: normocephalic, atraumatic Eye: Present: EOMI, PERRL - Routine Neck Exam Present: supple, full ROM, trachea midline - Routine Respiratory Exam Present: decreased breath sounds, wheezes. Absent: patient mechanically ventilated - Routine Cardiovascular Exam Present: S1, S2, no murmur, tachycardia - Routine Abdominal Exam Present: soft, normoactive bowel sounds - Routine Extremities Exam Present: edema, non tender, full ROM - Routine Back/Spine/Pelvis Exam Back/Spine: Present: full ROM - Routine Skin Exam Present: intact, dry - Routine Neurological Exam Present: alert, oriented X3, CN II-XII intact - Routine Psychiatric Exam Present: normal affect, normal thought process Results - Laboratory Findings CBC and BMP: 03/10/18 07:11 03/10/18 07:11 PT/INR, D-dimer INR 1.15 (0.92-1.18) 03/09/18 15:22 Abnormal lab findings: Abnormal Labs 03/06/18 03/06/18 03/06/18 15:02 17:26 21:00 WBC RBC Hct MCV RDW Std Deviation Plt Count Neut % (Auto) Lymph % (Auto) [place] % (Auto) Neut # (Auto) [place] # (Auto) Neutrophils % (Manual) Lymphocytes % (Manual) Neutrophils # (Manual) Monocytes # (Manual) Basophils # (Manual) APTT 129.0 H* Sodium Potassium Chloride BUN Creatinine Glucose Calculated Osmolality AST ALT Troponin I 0.239 H 0.236 H NT-Pro-B Natriuret Pep Ur Specific [place] Urine Occult Blood 03/07/18 03/07/18 03/07/18 03:20 03:20 03:20 WBC 13.1 H RBC 4.37 L Hct MCV 101.1 H RDW Std Deviation 58.0 H Plt Count Neut % (Auto) Lymph % (Auto) [place] % (Auto) Neut # (Auto) [place] # (Auto) Neutrophils % (Manual) Lymphocytes % (Manual) Neutrophils # (Manual) Monocytes # (Manual) Basophils # (Manual) APTT Sodium 145 H Potassium Chloride BUN 36.0 H Creatinine 2.2 H Glucose 118 H Calculated Osmolality 288 H AST 236 H ALT 156 H Troponin I 0.320 H NT-Pro-B Natriuret Pep Ur Specific [place] Urine Occult Blood 03/07/18 03/08/18 03/08/18 06:38 04:34 04:34 WBC 11.8 H RBC 4.13 L Hct 40.5 L MCV RDW Std Deviation 56.3 H Plt Count Neut % (Auto) 73.5 H Lymph % (Auto) 15.6 L [place] % (Auto) Neut # (Auto) 8.7 H [place] # (Auto) Neutrophils % (Manual) Lymphocytes % (Manual) Neutrophils # (Manual) Monocytes # (Manual) Basophils # (Manual) APTT 38.2 H Sodium Potassium 3.4 L D Chloride BUN 38.0 H Creatinine 2.1 H Glucose Calculated Osmolality AST ALT Troponin I NT-Pro-B Natriuret Pep Ur Specific [place] Urine Occult Blood 03/09/18 03/09/18 03/09/18 04:23 04:23 15:22 WBC 11.6 H 14.7 H RBC 4.20 L 4.41 L Hct MCV RDW Std Deviation 56.6 H 55.5 H Plt Count 126 L 127 L Neut % (Auto) 72.7 H Lymph % (Auto) 13.5 L [place] % (Auto) 9.1 H Neut # (Auto) 8.4 H [place] # (Auto) 1.1 H Neutrophils % (Manual) 82.0 H Lymphocytes % (Manual) 11.0 L Neutrophils # (Manual) 12.1 H Monocytes # (Manual) Basophils # (Manual) 0.3 H APTT Sodium Potassium Chloride BUN 47.0 H Creatinine 2.3 H D Glucose 111 H Calculated Osmolality 282 H AST 77 H D ALT 189 H Troponin I 0.412 H NT-Pro-B Natriuret Pep 6210 H Ur Specific [place] Urine Occult Blood 03/09/18 03/10/18 03/10/18 15:22 07:11 07:11 WBC 16.3 H RBC 4.13 L Hct MCV RDW Std Deviation 57.0 H Plt Count Neut % (Auto) Lymph % (Auto) [place] % (Auto) Neut # (Auto) [place] # (Auto) Neutrophils % (Manual) 82.0 H Lymphocytes % (Manual) 10.0 L Neutrophils # (Manual) 13.4 H Monocytes # (Manual) 1.3 H Basophils # (Manual) APTT Sodium Potassium Chloride 97 L BUN 46.0 H 48.0 H Creatinine 2.2 H 2.2 H Glucose 116 H Calculated Osmolality 282 H AST 65 H ALT 175 H Troponin I NT-Pro-B Natriuret Pep 9080 H Ur Specific [place] Urine Occult Blood 03/10/18 09:16 WBC RBC Hct MCV RDW Std Deviation Plt Count Neut % (Auto) Lymph % (Auto) [place] % (Auto) Neut # (Auto) [place] # (Auto) Neutrophils % (Manual) Lymphocytes % (Manual) Neutrophils # (Manual) Monocytes # (Manual) Basophils # (Manual) APTT Sodium Potassium Chloride BUN Creatinine Glucose Calculated Osmolality AST ALT Troponin I NT-Pro-B Natriuret Pep Ur Specific [place] 1.010 L Urine Occult Blood 1+ A - Diagnostic Findings Chest x-ray: image reviewed (pending today, CXR 03/09: cardiomegaly with vscular congestion.) Assessment and Plan - Assessment and Plan Acute Hypoxic respiratory Failure COPD Pulmonary edema Nonischemic Cardiomyopathy/systolic HF EF 10-15% VHD svere MR/TR Vtach NSTEM JIMMIE on CKD (Baseline Tumor Registrar 1.6) Plan: Pt currently on home Cpap [id number] with 4L O2 bled in, when off cpap he is noted to have more respiratory distress. Will switch him to hospital bipap for respiratory distress likely secondary to pulmonary edema. On bumex 1 mg BID, will check CXR, may benefit from increased diuresis vs dobutamine gtt 2/2 JIMMIE and pulmonary edema, Pro BNP 9000. Awaiting AICD today per Dr. Stahl. Hospitalist consulted for possible sepsis, tachycardic and tachypnic, WBC 16, afebrile, multifactoral and likely secondary to cardiopulmonary precesses, hospitalist checking UA, Lactate and Blood cultures. Will continue to follow closely. Is a full code. - Time Spent With Patient Total time spent is greater than 50% in coordination of care (as documented) at patient's floor/unit and/or counseling patient: 25 - 35 minutes <Jeremie Gibbs - Last Filed: 03/11/18 14:14> [facility] Patient Stated Medical History Cerebrovascular Accident Yes: 5 years ago Cataracts Yes Dental Problems Yes Heart Murmur Yes Hypertension Yes Myocardial Infarction Yes Bronchitis Yes Chronic Obstructive Pulmonary Yes Disease (COPD) Sleep Apnea Yes Other Respiratory Yes: HX ARDS Gastroesophageal Reflux Yes Disease Hx Benign Prostatic Yes Hyperplasia Hx Renal Disease Yes Cellulitis Yes: left lower leg Other Infectious Yes: gangrene left lower leg Blood Transfusions Yes Depression Yes Schizophrenia Yes Exam Vital signs: Temperature 96.7 F L 03/11/18 12:02 Pulse Rate 99 03/11/18 12:00 Respiratory Rate 23 03/11/18 10:37 Blood Pressure 116/75 03/11/18 10:30 Pulse Oximetry 97 03/11/18 12:02 Results - Laboratory Findings CBC and BMP: 03/11/18 04:44 03/11/18 04:43 ABG ABG pH 7.422 (7.350-7.450) 03/11/18 08:13 ABG pCO2 34 MMHG (34.0-45.0) 03/11/18 08:13 ABG pO2 103.7 MMHG (80.0-100.0) H 03/11/18 08:13 ABG O2 Saturation 98.2 % (95.0-98.0) H 03/11/18 08:13 PT/INR, D-dimer INR 1.15 (0.92-1.18) 03/09/18 15:22 Abnormal lab findings: Abnormal Labs 03/06/18 03/06/18 03/06/18 15:02 17:26 21:00 WBC RBC Hgb Hct MCV RDW Std Deviation Plt Count Neut % (Auto) Lymph % (Auto) [place] % (Auto) Neut # (Auto) [place] # (Auto) Neutrophils % (Manual) Lymphocytes % (Manual) Monocytes % (Manual) Neutrophils # (Manual) Monocytes # (Manual) Basophils # (Manual) APTT 129.0 H* ABG pO2 ABG O2 Saturation Sodium Potassium Chloride BUN Creatinine Glucose Calculated Osmolality AST ALT Troponin I 0.239 H 0.236 H NT-Pro-B Natriuret Pep Ur Specific [place] Urine Occult Blood 03/07/18 03/07/18 03/07/18 03:20 03:20 03:20 WBC 13.1 H RBC 4.37 L Hgb Hct MCV 101.1 H RDW Std Deviation 58.0 H Plt Count Neut % (Auto) Lymph % (Auto) [place] % (Auto) Neut # (Auto) [place] # (Auto) Neutrophils % (Manual) Lymphocytes % (Manual) Monocytes % (Manual) Neutrophils # (Manual) Monocytes # (Manual) Basophils # (Manual) APTT ABG pO2 ABG O2 Saturation Sodium 145 H Potassium Chloride BUN 36.0 H Creatinine 2.2 H Glucose 118 H Calculated Osmolality 288 H AST 236 H ALT 156 H Troponin I 0.320 H NT-Pro-B Natriuret Pep Ur Specific [place] Urine Occult Blood 03/07/18 03/08/18 03/08/18 06:38 04:34 04:34 WBC 11.8 H RBC 4.13 L Hgb Hct 40.5 L MCV RDW Std Deviation 56.3 H Plt Count Neut % (Auto) 73.5 H Lymph % (Auto) 15.6 L [place] % (Auto) Neut # (Auto) 8.7 H [place] # (Auto) Neutrophils % (Manual) Lymphocytes % (Manual) Monocytes % (Manual) Neutrophils # (Manual) Monocytes # (Manual) Basophils # (Manual) APTT 38.2 H ABG pO2 ABG O2 Saturation Sodium Potassium 3.4 L D Chloride BUN 38.0 H Creatinine 2.1 H Glucose Calculated Osmolality AST ALT Troponin I NT-Pro-B Natriuret Pep Ur Specific [place] Urine Occult Blood 03/09/18 03/09/18 03/09/18 04:23 04:23 15:22 WBC 11.6 H 14.7 H RBC 4.20 L 4.41 L Hgb Hct MCV RDW Std Deviation 56.6 H 55.5 H Plt Count 126 L 127 L Neut % (Auto) 72.7 H Lymph % (Auto) 13.5 L [place] % (Auto) 9.1 H Neut # (Auto) 8.4 H [place] # (Auto) 1.1 H Neutrophils % (Manual) 82.0 H Lymphocytes % (Manual) 11.0 L Monocytes % (Manual) Neutrophils # (Manual) 12.1 H Monocytes # (Manual) Basophils # (Manual) 0.3 H APTT ABG pO2 ABG O2 Saturation Sodium Potassium Chloride BUN 47.0 H Creatinine 2.3 H D Glucose 111 H Calculated Osmolality 282 H AST 77 H D ALT 189 H Troponin I 0.412 H NT-Pro-B Natriuret Pep 6210 H Ur Specific [place] Urine Occult Blood 03/09/18 03/10/18 03/10/18 15:22 07:11 07:11 WBC 16.3 H RBC 4.13 L Hgb Hct MCV RDW Std Deviation 57.0 H Plt Count Neut % (Auto) Lymph % (Auto) [place] % (Auto) Neut # (Auto) [place] # (Auto) Neutrophils % (Manual) 82.0 H Lymphocytes % (Manual) 10.0 L Monocytes % (Manual) Neutrophils # (Manual) 13.4 H Monocytes # (Manual) 1.3 H Basophils # (Manual) APTT ABG pO2 ABG O2 Saturation Sodium Potassium Chloride 97 L BUN 46.0 H 48.0 H Creatinine 2.2 H 2.2 H Glucose 116 H Calculated Osmolality 282 H AST 65 H ALT 175 H Troponin I NT-Pro-B Natriuret Pep 9080 H Ur Specific [place] Urine Occult Blood 03/10/18 03/11/18 03/11/18 09:16 04:43 04:44 WBC 14.5 H RBC 3.88 L Hgb 12.8 L Hct 39.0 L MCV 100.5 H RDW Std Deviation 57.3 H Plt Count Neut % (Auto) Lymph % (Auto) [place] % (Auto) Neut # (Auto) [place] # (Auto) Neutrophils % (Manual) 73.0 H Lymphocytes % (Manual) 16.0 L Monocytes % (Manual) 10.0 H Neutrophils # (Manual) 10.6 H Monocytes # (Manual) 1.5 H Basophils # (Manual) APTT ABG pO2 ABG O2 Saturation Sodium Potassium Chloride 96 L BUN 59.0 H* Creatinine 2.5 H D Glucose 133 H Calculated Osmolality 283 H AST ALT Troponin I NT-Pro-B Natriuret Pep Ur Specific [place] 1.010 L Urine Occult Blood 1+ A 03/11/18 08:13 WBC RBC Hgb Hct MCV RDW Std Deviation Plt Count Neut % (Auto) Lymph % (Auto) [place] % (Auto) Neut # (Auto) [place] # (Auto) Neutrophils % (Manual) Lymphocytes % (Manual) Monocytes % (Manual) Neutrophils # (Manual) Monocytes # (Manual) Basophils # (Manual) APTT ABG pO2 103.7 H ABG O2 Saturation 98.2 H Sodium Potassium Chloride BUN Creatinine Glucose Calculated Osmolality AST ALT Troponin I NT-Pro-B Natriuret Pep Ur Specific [place] Urine Occult Blood Assessment and Plan (1) Acute respiratory failure with hypoxemia Status: Acute Assessment and plan: Pt currently on home Cpap [id number] with 4L O2 bled in, when off cpap he is noted to have more respiratory distress. He seems to be improved on hospital bipap 10/22, rate 12, Fio2 30%. He will use this for respiratory distress likely secondary to pulmonary edema. Hopefully once improved we can transition back to CPAP. Currently he is on bumex 1 mg BID, Had AICD today per Dr. Stahl. Current Visit: Yes (2) COPD (chronic obstructive pulmonary disease) Status: Acute Assessment and plan: Budesonide/formoterol BID (Symbicort), neb albuterol/iprat as needed O2 to keep sat > 90% Current Visit: Yes - Time Spent With Patient Total time spent is greater than 50% in coordination of care (as documented) at patient's floor/unit and/or counseling patient:
[2018-03-11] MEDS: CEFAZOLIN 1 G in NS 100 ML IV SCH ×2 (01:10→09:07)
[2018-03-11] MEDS: LEVOTHYROXINE 125 MCG TABLET PO SCH (05:46)
[2018-03-11] MEDS: ALBUTEROL/IPRATROPIUM 2.5mg-0.5mg/3ml NEB AEROSOL SCH ×4 (07:02→20:00)
--- NOTE | 2018-03-11 08:55 | XRay Report ---
Indication: PPM PROCEDURE: XR chest 1V: Encounter: Initial Comparison: March 10, 2018 Findings: New left-sided dual-lead cardiac pacemaker defibrillator with right atrial and right ventricular leads. No evidence of lead fracture. Continued mild interstitial prominence. No new or worsening consolidation. No pneumothorax. Heart size and mediastinal contours are stable. Impression: New left pacemaker without evidence of pneumothorax. .
--- NOTE | 2018-03-11 08:56 | XRay Report ---
Indication: congestion PROCEDURE: XR chest 1V: Encounter: Initial Comparison: March 10, 2018 at 2033 Findings: Left dual-lead cardiac pacemaker appears stable in position. Lungs are stable with mild interstitial prominence and hazy basilar opacities but no visible pneumothorax. Cardiomediastinal contours are stable. Impression: No pneumothorax. Mild pulmonary vascular congestion or edema. .
[2018-03-11] MEDS: CARVEDILOL 6.25 MG TABLET PO SCH ×2 (08:59→19:24)
[2018-03-11] MEDS: CLOPIDOGREL 75 MG TABLET PO SCH (08:59)
[2018-03-11] MEDS: HEPARIN SUB-Q 5,000units/0.5ml INJECTION SQ SCH ×2 (09:00→20:22)
[2018-03-11] MEDS: AMIODARONE 200 MG TABLET PO SCH ×2 (09:00→20:22)
[2018-03-11] MEDS: DOCUSATE SODIUM 100 MG CAPSULE PO SCH ×2 (09:00→20:22)
[2018-03-11] MEDS: ASPIRIN *EC* 81 MG TABLET PO SCH (09:00)
--- NOTE | 2018-03-11 09:51 | Cardiology Progress Note ---
<TereSammie K - Last Filed: 03/11/18 10:23> Subjective Principal diagnosis: SCHF, NSTEMI Interval history: Mirza is seen in follow up for NSTEMI, SVT, and sustained VT that required cardioversion at bedside. He is upright in bed today with bipap in place. He reports feeling well, denies SOB and palpitations. Exam Vital signs: Temperature 98.0 F 03/10/18 16:00 Pulse Rate 99 03/11/18 08:00 Respiratory Rate 26 H 03/11/18 07:03 Blood Pressure 100/56 03/11/18 06:20 Pulse Oximetry 95 03/11/18 07:03 Inpatient Medications: Generic Name Dose Route Start Last Admin Trade Name Freq PRN Reason Stop Dose Admin Acetaminophen 325 - 650 mg 03/07/18 14:20 03/08/18 22:12 Tylenol PO 325 mg Q5H PRN Administration Pain Hydrocodone Bitart/Acetaminophen 1 - 2 tab 03/07/18 14:20 03/09/18 19:33 Mcbrides 5/325 PO 1 tab Q5H PRN Administration Pain Al Hydroxide/Mg Hydroxide 30 ml 03/07/18 14:20 Maalox Plus PO Q3H PRN Indigestion Albuterol/Ipratropium 3 ml 03/10/18 11:00 03/11/18 07:02 Duoneb AEROSOL 3 ml RTQID WILLAM Administration Amiodarone HCl 200 mg 03/08/18 21:25 03/11/18 09:00 Pacerone PO 200 mg BID WILLAM Administration Aspirin 81 mg 03/07/18 09:00 03/11/18 09:00 Ecotrin PO 81 mg DAILY WILLAM Administration Atorvastatin Calcium 20 mg 03/08/18 21:00 03/10/18 20:14 Lipitor PO 20 mg HS WILLAM Administration Atropine Sulfate 0.5 mg 03/07/18 14:20 Atropine IVP Q5M PRN Bradycardia Bisacodyl 5 - 10 mg 03/07/18 14:20 Dulcolax PO DAILY PRN Constipation Bisacodyl 10 mg 03/07/18 14:20 Dulcolax RECTALLY DAILY PRN Constipation Budesonide/Formoterol Fumarate 2 puff 03/07/18 12:39 03/10/18 21:27 Symbicort Inhaler ORAL INH 2 puff BID WILLAM Administration Carvedilol 6.25 mg 03/10/18 16:37 03/11/18 08:59 Coreg PO 6.25 mg BIDWM WILLAM Administration Clopidogrel Bisulfate 75 mg 03/07/18 09:00 03/11/18 08:59 Plavix PO 75 mg DAILY WILLAM Administration Docusate Sodium 100 mg 03/07/18 21:00 03/11/18 09:00 Colace PO 100 mg BID WILLAM Administration Docusate Sodium 100 mg 03/07/18 12:50 Colace PO BID PRN Heparin Sodium (Porcine) 5,000 units 03/11/18 09:00 03/11/18 09:00 Heparin Sq SQ 5,000 units Q12HR WILLAM Administration Levothyroxine Sodium 250 mcg 03/08/18 06:30 03/09/18 06:09 Synthroid PO 250 mcg SUSA@0630 [facility] Administration Levothyroxine Sodium 125 mcg 03/10/18 06:30 03/11/18 05:46 Synthroid PO 125 mcg MOTUWETHFR@0630 [facility] Administration Lorazepam 0.5 - 1 mg 03/07/18 14:20 03/10/18 22:56 Ativan PO 1 mg Q4H PRN Administration Anxiety Lorazepam 0.5 - 1 mg 03/07/18 14:20 03/10/18 02:59 Ativan Inj IVP 0.5 mg Q4H PRN Administration Anxiety Magnesium Hydroxide 30 ml 03/07/18 14:20 Mom PO DAILY PRN Constipation Metoclopramide HCl 5 - 10 mg 03/07/18 14:20 Reglan IVP Q6H PRN Nausea &/or vomiting Minocycline HCl 100 mg 03/11/18 21:00 Minocin PO 03/18/18 20:59 BID [facility] Morphine Sulfate 2 - 4 mg 03/07/18 14:20 Morphine Sulfate Inj IVP Q5M PRN Angina Nitroglycerin 0.4 mg 03/07/18 14:20 Nitrostat SL Q5M PRN Angina Ondansetron HCl 4 mg 03/07/18 14:20 Zofran IVP Q6H PRN Nausea &/or vomiting Potassium Chloride 20 meq 03/09/18 14:33 03/11/18 08:59 K-Dur 20 Meq Tablet PO 20 meq WB [facility] Administration Promethazine HCl 12.5 - 25 mg 03/07/18 14:20 Phenergan Inj IVP Q6HR PRN Nausea &/or vomiting Ranitidine HCl 150 mg 03/07/18 18:00 03/10/18 20:15 Zantac PO 150 mg 1800 WILLAM Administration Sodium Chloride 10 - 80 ml 03/09/18 14:34 03/10/18 07:52 Iv Flush IV 20 ml PRN PRN Administration Flushing Sodium Chloride 10 ml 03/10/18 20:02 Iv Flush IV PRN PRN Flushing Tramadol HCl 50 mg 03/06/18 18:28 Ultram PO Q6H PRN Pain Discontinued Medications Generic Name Dose Route Start Last Admin Trade Name Freq PRN Reason Stop Dose Admin Acetaminophen 650 mg 03/06/18 18:27 Tylenol PO Q5H PRN Pain Adenosine 6 mg 03/06/18 16:02 03/06/18 16:02 Adenocard IVP 03/06/18 16:03 6 mg O ONE Administration Adenosine 12 mg 03/06/18 16:06 03/06/18 16:06 Adenocard IVP 03/06/18 16:07 12 mg O ONE Administration Atorvastatin Calcium 20 mg 03/07/18 18:00 03/10/18 21:34 Lipitor PO Not Given 1800 WILLAM Budesonide/Formoterol Fumarate 2 puff 03/07/18 21:00 Symbicort Inhaler ORAL INH BID WILLAM Bumetanide 1 mg 03/06/18 16:09 03/06/18 18:08 Bumex 1 Mg/4 Ml Inj. IVP 03/06/18 16:10 1 mg O ONE Administration Bumetanide 1 mg 03/06/18 16:10 03/06/18 18:09 Bumex 1 Mg/4 Ml Inj. IVP 03/06/18 16:11 1 mg O ONE Administration Bumetanide 1 mg 03/06/18 16:11 03/06/18 16:11 Bumex 1 Mg/4 Ml Inj. IVP 03/06/18 16:12 1 mg O ONE Administration Bumetanide 2 mg 03/07/18 21:00 03/10/18 21:33 Bumex 1 Mg/4 Ml Inj. IVP Not Given QID WILLAM Bumetanide 2 mg 03/08/18 15:00 03/09/18 04:06 Bumex 1 Mg/4 Ml Inj. IVP Not Given Q6HR WILLAM Bumetanide 1 mg 03/09/18 09:00 03/10/18 08:16 Bumex 1 Mg/4 Ml Inj. IVP 1 mg BID WILLAM Administration Bumetanide 1 mg 03/09/18 14:33 03/09/18 15:41 Bumex 1 Mg/4 Ml Inj. IVP 03/09/18 14:34 1 mg O ONE Administration Bumetanide 2 mg 03/10/18 16:07 03/10/18 20:15 Bumex 1 Mg Tab PO 2 mg [id number] WILLAM Administration Carvedilol 3.125 mg 03/07/18 10:53 03/10/18 07:52 Coreg PO 3.125 mg BIDWM WILLAM Administration Device 1 each 03/07/18 12:57 03/07/18 12:59 Optichamber 03/07/18 12:58 1 each O ONE Administration Heparin Sodium (Beef Lung) 6,000 unit 03/06/18 17:04 03/06/18 17:22 Heparin Bolus IVP 03/06/18 17:05 6,000 unit O ONE Administration Heparin Sodium (Beef Lung) 5,000 unit 03/06/18 22:04 03/06/18 22:10 Heparin Bolus IVP 03/06/18 22:05 5,000 unit O ONE Administration Heparin Sodium (Beef Lung) 2,000 unit 03/07/18 09:00 03/07/18 09:21 Heparin Bolus IVP 03/07/18 09:01 2,000 unit O ONE Administration Heparin Sodium (Porcine) 1 each 03/06/18 16:17 Pharmacy Consult - Heparin 03/06/18 16:18 ONE TIME ONE Heparin Sodium (Porcine) 5,000 units 03/09/18 09:00 03/09/18 21:31 Heparin Sq SQ 5,000 units Q12HR WILLAM Administration Bumetanide 25 mg/ IV Solution 100 mls @ 2 mls/hr 03/06/18 16:15 03/07/18 18: 19 IV Not Given Q24H [facility] Heparin Sodium (Porcine) 20,000 unit in 500 mls @ 30 mls/hr 03/06/18 17:05 14:00 Heparin Drip IV Infused .[id number] WILLAM Titration Protocol 1,200 UNIT/HR Amiodarone HCl 900 mg/ Sodium 500 mls @ 16.66 mls/hr 03/07/18 00:31 03/08/18 12:41 Chloride IV Not Given .Q24H WILLAM 0.5 MG/MIN Amiodarone HCl 450 mg/ Sodium 250 mls @ 33.33 mls/hr 03/06/18 18:30 03/07/18 02:11 Chloride IV 03/07/18 00:30 Infused .[id number] WILLAM Infusion 1 MG/MIN Amiodarone HCl 150 mg/ Sodium 103 mls @ 618 mls/hr 03/06/18 18:20 03/06/18 19 :59 Chloride IV 03/06/18 18:29 Infused O ONE Infusion Heparin Sodium (Porcine) 20,000 unit in 500 mls @ 35 mls/hr 03/07/18 09:00 09:19 Heparin Drip IV Not Given .[id number] WILLAM Protocol 1,400 UNIT/HR Sodium Chloride 1,000 mls @ 50 mls/hr 03/07/18 14:30 03/08/18 06:17 Normal Saline IV 03/08/18 00:30 50 mls/hr .Q20H WILLAM Infusion Cefazolin Sodium 1 g/ Sodium 100 mls @ 200 mls/hr 03/11/18 01:00 03/11/18 09: 07 Chloride IV 03/11/18 09:29 200 mls/hr Q8HR WILLAM Administration Losartan Potassium 25 mg 03/07/18 11:00 03/08/18 12:50 Cozaar PO 25 mg DAILY WILLAM Administration Magnesium Hydroxide 30 ml 03/07/18 12:50 Mom PO DAILY PRN Constipation Mirabegron 50 mg 03/07/18 09:00 03/08/18 08:38 Myrbetriq PO 50 mg DAILY WILLAM Administration Morphine Sulfate 2 - 4 mg 03/07/18 14:20 Morphine Sulfate Inj IVP 03/08/18 14:19 Q2H PRN Pain Ondansetron HCl 4 mg 03/06/18 18:28 Zofran IVP Q6H PRN Nausea &/or vomiting Potassium Chloride 20 meq 03/08/18 21:23 03/08/18 22:08 K-Dur 20 Meq Tablet PO 03/08/18 21:24 20 meq O ONE Administration Tamsulosin HCl 0.4 mg 03/07/18 18:00 03/08/18 19:04 Flomax PO 0.4 mg 1800 WILLAM Administration - Constitutional no acute distress, well nourished, well developed, cooperative - Routine HEENT Exam Head: Present: normocephalic, atraumatic Eye: Present: EOMI, PERRL ENT: Present: mucous membranes moist - Routine Neck Exam Present: trachea midline. Absent: JVD, carotid bruit - Routine Chest/Breast/Axilla Exam Chest wall: Present: pacemaker. Absent: tenderness - Routine Respiratory Exam Present: CTA bilaterally - Routine Cardiovascular Exam Present: RRR. Absent: no murmur, JVD - Routine Abdominal Exam Present: soft, normoactive bowel sounds, non tender, distended - Routine Extremities Exam Present: edema, amputation (LLE AKA) Comments: RLE - Routine Skin Exam Present: dry, warm - Routine Neurological Exam Present: alert, oriented X3, moving all extremities - Routine Psychiatric Exam Present: normal affect, cooperative. Absent: good judgment - Urinary Catheter Management Urethral Cath placed during this visit: yes Urethral indwelling: Yes Reason for continuing: Physician Order to NOT Remove Catheter at This Time Insertion date: 03/06/18 Insertion time: 16:15 Results 03/11/18 04:44 03/11/18 04:43 CBC 03/11/18 Range/Units 04:44 WBC 14.5 H (4.5-11.0) T/MM3 RBC 3.88 L (4.50-5.90) M/MM3 Hgb 12.8 L (13.5-17.5) GM/DL Hct 39.0 L (41-53) % Plt Count 140 (130-400) T/MM3 Neut # (Auto) Not performed Lymph # (Auto) Not performed [place] # (Auto) Not performed Eos # (Auto) Not performed Baso # (Auto) Not performed Comprehensive Metabolic Panel 03/11/18 Range/Units 04:43 Sodium 137 (134-144) MEQ/L Potassium 4.3 (3.6-5) MEQ/L Chloride 96 L (98-107) MEQ/L Carbon Dioxide 27 (22-30) MEQ/L BUN 59.0 H* (9-20) MG/DL Creatinine 2.5 H D (0.8-1.5) mg/dL Glucose 133 H (75-110) MG/DL Calcium 8.7 (8.4-10.2) MG/DL Intake and Output 03/10/18 03/11/18 03/11/18 22:59 06:59 14:59 Intake Total 810 / 810 300 / 300 Output Total 329 / 329 302 / 302 140 / 140 Balance 481 / 481 -2 / -2 -140 / -140 Intake: IV 100 / 100 Cefazolin 1 g In Ns 100 ml @ 100 / 100 200 mls/hr IV Q8HR [facility] Rx#: [id number] Oral 810 / 810 200 / 200 Output: Urine Amount (Catheter) 329 / 329 302 / 302 140 / 140 Other: Urine Appearance Clear Clear Clear Urine Color Straw Straw Straw Assessment and Plan - Assessment and Plan (1) Cardiomyopathy Current visit: Yes Status: Chronic (2) HTN (hypertension) Current visit: Yes Status: Chronic (3) CAD (coronary artery disease) Current visit: Yes Status: Chronic (4) CKD (chronic kidney disease) Current visit: Yes Status: Chronic (5) Hyperlipidemia Current visit: Yes Status: Chronic (6) Acute dyspnea Current visit: No Status: Acute (7) Acute systolic CHF (congestive heart failure) Current visit: Yes Status: Acute (8) SVT (supraventricular tachycardia) Current visit: No Status: Acute (9) NSTEMI (non-ST elevated myocardial infarction) Current visit: Yes Status: Acute - Assessment and Plan NSTEMI (non-ST elevated myocardial infarction) - Trend troponin 1) 0.239, 2) 0.236, 3)0.320 VT/ SVT (supraventricular tachycardia) - Continue amiodarone 200 mg PO BID - EKG in am - SQ Heparin - Bi-V AICD implanted yesterday - EKG: SR with 1st degree AVB, LAE, and LBBB Acute dyspnea - Presented from [facility] on 4l/NC - RCAT, on bipap this am - Chest xray today shows no pneumothorax. Mild pulmonary vascular congestion or edema. Acute systolic CHF (congestive heart failure) - Echo: EF 10-15%, severe MR/TR - Chest xray today shows mild pulmonary vascular congestion or edema - Cr up to 2.5, BUN 59 - BNP 9080 today (6210 yesterday) - Will hold diuretics today and resume tomorrow - Pt admits heavy ETOH consumption 6-12 beers daily for many years prior to one year ago. Cardiomyopathy - Echo: EF 10-15%, severe MR/ TR HTN (hypertension) - Continue Coreg 6.25 mg BID CAD (coronary artery disease) - Heart cath on Saturday revealed coronaries with nonobstructive disease - Continue ASA and BB - Continue Plavix d/t to stent in RLE CKD (chronic kidney disease) - BUN 59/SCr 2.5 (base line 1.8) - Will hold diuresis today, plan to resume tomorrow - Potassium 4.3 Hyperlipidemia - Continue Statin Hospital Course Summary Disclaimer: The visit summary below is not to be considered part of the above Progress Note. Hospital Course: Impression Leukocytosis Tachycardia Elevated LFTs Cardiomyopathy- with acute systolic failure Non-STEMI V. tach hyperlipidemia Hypertension Coronary artery disease Schizophrenia Depression History of CVA Plan Continued cardiology care as per Dr. Stahl, planning for pacemaker/ defibrillator placement later today. Patient doesn't meet nursing sepsis criteria. Given tachycardia, tachypnea and leukocytosis. All 3 of these may be multifactorial including severe cardiomyopathy and respiratory distress. Will obtain UA, Lactate and Blood cultures, Chest Xray to rule out infectious etiology Given respiratory distress will consult pulmonary, Dr Gibbs for evaluation and recommendations Monitor renal function- known CKD- Shoe Sticks Repairer 2.2 (Baseline Shoe Sticks Repairer 1.6) Continues on scheduled Bumex for diuresis- Monitor renal function Appreciate medical consultation. Will continue to follow patient. At time if discharge medical care is to return to PCP in Dr Hilda Self Case discussed with attending, Dr Serna <Jose C Stahl - Last Filed: 03/12/18 08:20> Exam Vital signs: Temperature 96.5 F L 03/11/18 19:45 Pulse Rate 95 03/12/18 04:00 Respiratory Rate 29 H 03/12/18 07:50 Blood Pressure 104/71 03/12/18 03:06 Pulse Oximetry 99 03/12/18 07:50 Inpatient Medications: Generic Name Dose Route Start Last Admin Trade Name Freq PRN Reason Stop Dose Admin Acetaminophen 325 - 650 mg 03/07/18 14:20 03/08/18 22:12 Tylenol PO 325 mg Q5H PRN Administration Pain Hydrocodone Bitart/Acetaminophen 1 - 2 tab 03/07/18 14:20 03/11/18 19:26 Mcbrides 5/325 PO 1 tab Q5H PRN Administration Pain Al Hydroxide/Mg Hydroxide 30 ml 03/07/18 14:20 Maalox Plus PO Q3H PRN Indigestion Albuterol Sulfate 2.5 mg 03/12/18 02:04 03/12/18 02:06 Proventil Neb (0.083%) AEROSOL 2.5 mg Q2HR PRN Administration Albuterol/Ipratropium 3 ml 03/10/18 11:00 03/12/18 07:50 Duoneb AEROSOL 3 ml RTQID WILLAM Administration Amiodarone HCl 200 mg 03/08/18 21:25 03/11/18 20:22 Pacerone PO 200 mg BID WILLAM Administration Aspirin 81 mg 03/07/18 09:00 03/11/18 09:00 Ecotrin PO 81 mg DAILY WILLAM Administration Atorvastatin Calcium 20 mg 03/08/18 21:00 03/11/18 21:39 Lipitor PO 20 mg HS WILLAM Administration Atropine Sulfate 0.5 mg 03/07/18 14:20 Atropine IVP Q5M PRN Bradycardia Bisacodyl 5 - 10 mg 03/07/18 14:20 Dulcolax PO DAILY PRN Constipation Bisacodyl 10 mg 03/07/18 14:20 Dulcolax RECTALLY DAILY PRN Constipation Budesonide/Formoterol Fumarate 2 puff 03/07/18 12:39 03/12/18 08:17 Symbicort Inhaler ORAL INH 2 puff BID [facility] Administration Carvedilol 6.25 mg 03/10/18 16:37 03/11/18 19:24 Coreg PO 6.25 mg BIDWM [facility] Administration Clopidogrel Bisulfate 75 mg 03/07/18 09:00 03/11/18 08:59 Plavix PO 75 mg DAILY WILLAM Administration Docusate Sodium 100 mg 03/07/18 21:00 03/11/18 20:22 Colace PO 100 mg BID WILLAM Administration Docusate Sodium 100 mg 03/07/18 12:50 Colace PO BID PRN Heparin Sodium (Porcine) 5,000 units 03/11/18 09:00 03/11/18 20:22 Heparin Sq SQ 5,000 units Q12HR WILLAM Administration Levothyroxine Sodium 250 mcg 03/08/18 06:30 03/09/18 06:09 Synthroid PO 250 mcg SUSA@0630 [facility] Administration Levothyroxine Sodium 125 mcg 03/10/18 06:30 03/12/18 06:07 Synthroid PO 125 mcg MOTUWETHFR@0630 [facility] Administration Lorazepam 0.5 - 1 mg 03/07/18 14:20 03/10/18 22:56 Ativan PO 1 mg Q4H PRN Administration Anxiety Lorazepam 0.5 - 1 mg 03/07/18 14:20 03/12/18 03:30 Ativan Inj IVP 0.5 mg Q4H PRN Administration Anxiety Magnesium Hydroxide 30 ml 03/07/18 14:20 Mom PO DAILY PRN Constipation Metoclopramide HCl 5 - 10 mg 03/07/18 14:20 Reglan IVP Q6H PRN Nausea &/or vomiting Minocycline HCl 100 mg 03/11/18 21:00 03/11/18 20:22 Minocin PO 03/18/18 20:59 100 mg BID [facility] Administration Morphine Sulfate 2 - 4 mg 03/07/18 14:20 Morphine Sulfate Inj IVP Q5M PRN Angina Nitroglycerin 0.4 mg 03/07/18 14:20 Nitrostat SL Q5M PRN Angina Ondansetron HCl 4 mg 03/07/18 14:20 Zofran IVP Q6H PRN Nausea &/or vomiting Promethazine HCl 12.5 - 25 mg 03/07/18 14:20 Phenergan Inj IVP Q6HR PRN Nausea &/or vomiting Ranitidine HCl 150 mg 03/07/18 18:00 03/11/18 19:24 Zantac PO 150 mg 1800 [facility] Administration Sodium Chloride 10 - 80 ml 03/09/18 14:34 03/10/18 07:52 Iv Flush IV 20 ml PRN PRN Administration Flushing Sodium Chloride 10 ml 03/10/18 20:02 Iv Flush IV PRN PRN Flushing Tramadol HCl 50 mg 03/06/18 18:28 Ultram PO Q6H PRN Pain Discontinued Medications Generic Name Dose Route Start Last Admin Trade Name Freq PRN Reason Stop Dose Admin Acetaminophen 650 mg 03/06/18 18:27 Tylenol PO Q5H PRN Pain Adenosine 6 mg 03/06/18 16:02 03/06/18 16:02 Adenocard IVP 03/06/18 16:03 6 mg O ONE Administration Adenosine 12 mg 03/06/18 16:06 03/06/18 16:06 Adenocard IVP 03/06/18 16:07 12 mg O ONE Administration Atorvastatin Calcium 20 mg 03/07/18 18:00 03/10/18 21:34 Lipitor PO Not Given 1800 WILLAM Budesonide/Formoterol Fumarate 2 puff 03/07/18 21:00 Symbicort Inhaler ORAL INH BID WILLAM Bumetanide 1 mg 03/06/18 16:09 03/06/18 18:08 Bumex 1 Mg/4 Ml Inj. IVP 03/06/18 16:10 1 mg O ONE Administration Bumetanide 1 mg 03/06/18 16:10 03/06/18 18:09 Bumex 1 Mg/4 Ml Inj. IVP 03/06/18 16:11 1 mg O ONE Administration Bumetanide 1 mg 03/06/18 16:11 03/06/18 16:11 Bumex 1 Mg/4 Ml Inj. IVP 03/06/18 16:12 1 mg O ONE Administration Bumetanide 2 mg 03/07/18 21:00 03/10/18 21:33 Bumex 1 Mg/4 Ml Inj. IVP Not Given QID WILLAM Bumetanide 2 mg 03/08/18 15:00 03/09/18 04:06 Bumex 1 Mg/4 Ml Inj. IVP Not Given Q6HR WILLAM Bumetanide 1 mg 03/09/18 09:00 03/10/18 08:16 Bumex 1 Mg/4 Ml Inj. IVP 1 mg BID WILLAM Administration Bumetanide 1 mg 03/09/18 14:33 03/09/18 15:41 Bumex 1 Mg/4 Ml Inj. IVP 03/09/18 14:34 1 mg O ONE Administration Bumetanide 2 mg 03/10/18 16:07 03/10/18 20:15 Bumex 1 Mg Tab PO 2 mg [id number] WILLAM Administration Carvedilol 3.125 mg 03/07/18 10:53 03/10/18 07:52 Coreg PO 3.125 mg BIDWM WILLAM Administration Device 1 each 03/07/18 12:57 03/07/18 12:59 Optichamber 03/07/18 12:58 1 each O ONE Administration Heparin Sodium (Beef Lung) 6,000 unit 03/06/18 17:04 03/06/18 17:22 Heparin Bolus IVP 03/06/18 17:05 6,000 unit O ONE Administration Heparin Sodium (Beef Lung) 5,000 unit 03/06/18 22:04 03/06/18 22:10 Heparin Bolus IVP 03/06/18 22:05 5,000 unit O ONE Administration Heparin Sodium (Beef Lung) 2,000 unit 03/07/18 09:00 03/07/18 09:21 Heparin Bolus IVP 03/07/18 09:01 2,000 unit O ONE Administration Heparin Sodium (Porcine) 1 each 03/06/18 16:17 Pharmacy Consult - Heparin 03/06/18 16:18 ONE TIME ONE Heparin Sodium (Porcine) 5,000 units 03/09/18 09:00 03/09/18 21:31 Heparin Sq SQ 5,000 units Q12HR WILLAM Administration Bumetanide 25 mg/ IV Solution 100 mls @ 2 mls/hr 03/06/18 16:15 03/07/18 18: 19 IV Not Given Q24H [facility] Heparin Sodium (Porcine) 20,000 unit in 500 mls @ 30 mls/hr 03/06/18 17:05 14:00 Heparin Drip IV Infused .[id number] WILLAM Titration Protocol 1,200 UNIT/HR Amiodarone HCl 900 mg/ Sodium 500 mls @ 16.66 mls/hr 03/07/18 00:31 03/08/18 12:41 Chloride IV Not Given .Q24H WILLAM 0.5 MG/MIN Amiodarone HCl 450 mg/ Sodium 250 mls @ 33.33 mls/hr 03/06/18 18:30 03/07/18 02:11 Chloride IV 03/07/18 00:30 Infused .[id number] WILLAM Infusion 1 MG/MIN Amiodarone HCl 150 mg/ Sodium 103 mls @ 618 mls/hr 03/06/18 18:20 03/06/18 19 :59 Chloride IV 03/06/18 18:29 Infused O ONE Infusion Heparin Sodium (Porcine) 20,000 unit in 500 mls @ 35 mls/hr 03/07/18 09:00 09:19 Heparin Drip IV Not Given .[id number] WILLAM Protocol 1,400 UNIT/HR Sodium Chloride 1,000 mls @ 50 mls/hr 03/07/18 14:30 03/08/18 06:17 Normal Saline IV 03/08/18 00:30 50 mls/hr .Q20H WILLAM Infusion Cefazolin Sodium 1 g/ Sodium 100 mls @ 200 mls/hr 03/11/18 01:00 03/11/18 09: 37 Chloride IV 03/11/18 09:29 Infused Q8HR WILLAM Infusion Losartan Potassium 25 mg 03/07/18 11:00 03/08/18 12:50 Cozaar PO 25 mg DAILY WILLAM Administration Magnesium Hydroxide 30 ml 03/07/18 12:50 Mom PO DAILY PRN Constipation Mirabegron 50 mg 03/07/18 09:00 03/08/18 08:38 Myrbetriq PO 50 mg DAILY WILLAM Administration Morphine Sulfate 2 - 4 mg 03/07/18 14:20 Morphine Sulfate Inj IVP 03/08/18 14:19 Q2H PRN Pain Ondansetron HCl 4 mg 03/06/18 18:28 Zofran IVP Q6H PRN Nausea &/or vomiting Pharmacy Consult 1 each 03/11/18 15:34 Pharmacy Consult - Fall Risk 03/11/18 15:35 ONE TIME ONE Potassium Chloride 20 meq 03/08/18 21:23 03/08/18 22:08 K-Dur 20 Meq Tablet PO 03/08/18 21:24 20 meq O ONE Administration Potassium Chloride 20 meq 03/09/18 14:33 03/11/18 08:59 K-Dur 20 Meq Tablet PO 20 meq WB WILLAM Administration Tamsulosin HCl 0.4 mg 03/07/18 18:00 03/08/18 19:04 Flomax PO 0.4 mg 1800 WILLAM Administration - Urinary Catheter Management Urethral Cath placed during this visit: no Results 03/12/18 04:22 03/12/18 04:22 CBC 03/12/18 Range/Units 04:22 WBC 19.1 H (4.5-11.0) T/MM3 RBC 3.94 L (4.50-5.90) M/MM3 Hgb 12.9 L (13.5-17.5) GM/DL Hct 39.4 L (41-53) % Plt Count 146 (130-400) T/MM3 Comprehensive Metabolic Panel 03/12/18 Range/Units 04:22 Sodium 136 (134-144) MEQ/L Potassium 5.2 H D (3.6-5) MEQ/L Chloride 95 L (98-107) MEQ/L Carbon Dioxide 24 (22-30) MEQ/L BUN 84.0 H* (9-20) MG/DL Creatinine 3.3 H D (0.8-1.5) mg/dL Glucose 124 H (75-110) MG/DL Calcium 8.7 (8.4-10.2) MG/DL Intake and Output 03/11/18 03/12/18 03/12/18 22:59 06:59 14:59 Intake Total 410 / 410 290 / 290 Output Total 100 / 100 175 / 175 Balance 310 / 310 115 / 115 Intake: Oral 410 / 410 290 / 290 Output: Urine Amount (Catheter) 100 / 100 175 / 175 Other: Urine Appearance Cloudy Clear Urine Color Straw Dark Yellow Urine Odor Normal Assessment and Plan - Assessment and Plan (1) Cardiomyopathy Current visit: Yes Status: Chronic (2) HTN (hypertension) Current visit: Yes Status: Chronic (3) CAD (coronary artery disease) Current visit: Yes Status: Chronic (4) CKD (chronic kidney disease) Current visit: Yes Status: Chronic (5) Hyperlipidemia Current visit: Yes Status: Chronic (6) Acute dyspnea Current visit: No Status: Acute (7) Acute systolic CHF (congestive heart failure) Current visit: Yes Status: Acute (8) SVT (supraventricular tachycardia) Current visit: No Status: Acute (9) NSTEMI (non-ST elevated myocardial infarction) Current visit: Yes Status: Acute - Attestation Attestation Narrative: 03/12/18 08:20 Recommendation After examining the patient I agree with the above assessment. I am involved in the formulation of the patient's plan of care. Hospital Course Summary Disclaimer: The visit summary below is not to be considered part of the above Progress Note.
[2018-03-11] MEDS ORDERED: FALL RISK - PHARMACY CONSULT MC ONE (15:34)
--- NOTE | 2018-03-11 17:49 | Progress Note ---
- Date 03/11/18 Subjective: F/U: Leukocytosis Resting in bed this evening wearing CPAP. Easily awakened. Breathing fair-some SOA but not congested. Sore at Defibrillator site. Oral drive decreased. No nausea or ab pain. Last stool 2 days ago. Objective Vital signs: Temperature 96.4 F L 03/11/18 15:31 Pulse Rate 98 03/11/18 15:31 Respiratory Rate 24 03/11/18 16:33 Blood Pressure 126/46 03/11/18 16:09 Pulse Oximetry 95 03/11/18 16:09 Height/Weight/BMI: Height 1.73 m Weight 94.3 kg Body Mass Index 35.0 - Constitutional Present: well nourished, well developed, obese, somnolent - Routine HEENT Exam Head: Present: normocephalic, atraumatic - Routine Respiratory Exam Present: decreased breath sounds. Absent: respiratory distress - Routine Cardiovascular Exam Present: RRR - Routine Abdominal Exam Present: soft, non distended, non tender. Absent: normoactive bowel sounds ( Decreased ) - Routine Exam Comments: Flores in place - Routine Extremities Exam Present: edema, pulses intact. Absent: cyanosis, clubbing - Routine Musculoskeletal Exam Musculoskeletal: Present: no clubbing or cyanosis - Routine Skin Exam Present: dry, warm - Routine Neurological Exam Present: moving all extremities, vision grossly intact, hearing grossly intact - Routine Psychiatric Exam Comments: Somnolent Results - Labs CBC & Chem 7: 03/11/18 04:44 03/11/18 04:43 - ABG Interpretation ABG results: 03/11/18 08:13 ABG pH 7.422 ABG pCO2 34 ABG pO2 103.7 H ABG HCO3 22.3 ABG Total CO2 23.3 ABG O2 Saturation 98.2 H ABG Base Excess -1.6 Assessment and Plan (1) Leukocytosis Current visit: Yes Status: Acute Assessment and Plan: Impression Leukocytosis Tachycardia Elevated LFTs Cardiomyopathy- with acute systolic failure Non-STEMI V. tach - ICD placed 03/10 Hyperlipidemia Hypertension Coronary artery disease Stage III CKD Schizophrenia Depression History of CVA Plan Will continue with Flores to DD secondary to elevation of creatinine. BiPAP/CPAP for respiratory support. Stop potassium with elevation of creatinine and increase potassium levels. Diuretics on hold by cardiology. Recheck BMP in am secondary to CKD/medication use. Recheck CBC in am due to leukocytosis and anemia. DVT Prophylaxis: SCD's, SQ Heparin Resuscitation Status: Full Code - Physician Narrative Physician: Jj Serna MD Narrative: Date: 03/11/18 Time: 1745 Hospital Course Summary Disclaimer: The visit summary below is not to be considered part of the above Progress Note. Hospital Course: Impression Leukocytosis Tachycardia Elevated LFTs Cardiomyopathy- with acute systolic failure Non-STEMI V. tach hyperlipidemia Hypertension Coronary artery disease Schizophrenia Depression History of CVA Plan Continued cardiology care as per Dr. Stahl, planning for pacemaker/ defibrillator placement later today. Patient doesn't meet nursing sepsis criteria. Given tachycardia, tachypnea and leukocytosis. All 3 of these may be multifactorial including severe cardiomyopathy and respiratory distress. Will obtain UA, Lactate and Blood cultures, Chest Xray to rule out infectious etiology Given respiratory distress will consult pulmonary, Dr Gibbs for evaluation and recommendations Monitor renal function- known CKD- Brand Protection Manager 2.2 (Baseline Brand Protection Manager 1.6) Continues on scheduled Bumex for diuresis- Monitor renal function Appreciate medical consultation. Will continue to follow patient. At time if discharge medical care is to return to PCP in Dr Hilda Self Case discussed with attending, Dr Serna
[2018-03-11] MEDS: RANITIDINE 150 MG TABLET PO SCH (19:24)
[2018-03-11] MEDS: HYDROCODONE/APAP 5mg/325mg TABLET PO PRN (19:26)
[2018-03-11] MEDS: MINOCYCLINE 100 MG CAPSULE PO SCH (20:22)
[2018-03-11] MEDS: ATORVASTATIN 20 MG TABLET PO SCH (21:39)
[2018-03-12] MEDS ORDERED: ALBUTEROL 2.5mg/3ml (0.083%) NEB AEROSOL PRN (02:04)
[2018-03-12] MEDS: LEVOTHYROXINE 125 MCG TABLET PO SCH (06:07)
[2018-03-12] MEDS: ALBUTEROL/IPRATROPIUM 2.5mg-0.5mg/3ml NEB AEROSOL SCH ×4 (07:50→20:05)
--- NOTE | 2018-03-12 08:16 | Progress Note ---
- Date 03/12/18 Subjective: F-U: NSTEMI, SVT, and sustained VT that required cardioversion at bedside. S/p AICD placed by Dr. Stahl on 03/10. Mr. Callejas is seen sitting in bed this morning. Patient reports he's having some pain at his defibrillator site and in his abdomen. Appetite is good. Didn' t sleep very well last night. Patient's talks throughout exam, mostly hard to understand. Denies chest pain or shortness of breath. Objective Vital signs: Temperature 96.5 F L 03/11/18 19:45 Pulse Rate 95 03/12/18 04:00 Respiratory Rate 29 H 03/12/18 07:50 Blood Pressure 104/71 03/12/18 03:06 Pulse Oximetry 99 03/12/18 07:50 Height/Weight/BMI: Height 1.73 m Weight 94.3 kg Body Mass Index 35.0 - Constitutional Present: no acute distress, well nourished, well developed - Routine HEENT Exam Head: Present: normocephalic, atraumatic - Routine Respiratory Exam Present: decreased breath sounds, CTA bilaterally. Absent: respiratory distress , wheezes - Routine Cardiovascular Exam Present: RRR, no murmur Comments: Surgical site left upper chest with diffuse ecchymosis superiorly. Mild tenderness inferior to device. No evidence of infection. Left arm in sling. - Routine Abdominal Exam Present: soft, non distended, non tender. Absent: normoactive bowel sounds ( decreased) - Routine Exam Comments: Flores - Routine Extremities Exam Present: edema, normal capillary refill Comments: Left above-knee amputation. - Routine Skin Exam Present: dry, warm - Routine Neurological Exam Present: alert - Routine Lymphatic Exam Lymphatic: Absent: adenopathy - Routine Psychiatric Exam Present: normal affect, cooperative Results - Labs CBC & Chem 7: 03/12/18 04:22 03/12/18 09:57 - ABG Interpretation ABG results: 03/11/18 08:13 ABG pH 7.422 ABG pCO2 34 ABG pO2 103.7 H ABG HCO3 22.3 ABG Total CO2 23.3 ABG O2 Saturation 98.2 H ABG Base Excess -1.6 Assessment and Plan (1) Leukocytosis Current visit: Yes Status: Acute Assessment and Plan: Impression Leukocytosis Tachycardia Elevated LFTs Cardiomyopathy- with acute systolic failure Non-STEMI V. tach - ICD placed 03/10 Hyperlipidemia Hypertension Coronary artery disease Stage III CKD Schizophrenia Depression History of CVA Plan Will continue with Flores to DD secondary to elevation of creatinine. Diuretics on hold by cardiology. Cr 2.5-->3.3, BUN 59-->84. Check renal US. Potassium was DC'd yesterday with elevation of creatinine and increase potassium levels. Potassium increased to 5.2 today. WBC 14.5-->19.1. Differential wasn't ordered on original order. Lab contacted and will run diff. Recheck BMP in am secondary to CKD/medication use. Recheck CBC in am due to leukocytosis and anemia. BiPAP/CPAP for respiratory support. DVT Prophylaxis: SCD's Resuscitation Status: Full Code - Physician Narrative Physician: Jj Serna MD Narrative: Date: 03/12/18 Time: 1640 Have independently interviewed and examined pt. Chart reviewed. Case discussed with my PA. Above care plan developed with my supervision; agree with above. Resting in bed on BiPAP, easily aroused. Breathing fair-does feel short of breath. BiPAP helping. No nausea or ab pain. Does feel itchy. Chest wall sore where ICD was placed. Lungs: decreased, upper airway noises and scattered crackles. CV: regular AB: soft Obese nt decreased BS Plan: IVF and dopamine started by cardiology secondary to heart failure and worsening renal status. Continue BiPAP to help respiratory support. Will recheck CXR to follow pulmonary edema. Potential need for dialysis raised if having refractory pulmonary edema or hypernatremia. Hospital Course Summary Disclaimer: The visit summary below is not to be considered part of the above Progress Note.
[2018-03-12] MEDS: CARVEDILOL 6.25 MG TABLET PO SCH ×2 (08:37→18:09)
[2018-03-12] MEDS: DOCUSATE SODIUM 100 MG CAPSULE PO SCH ×2 (08:39→20:34)
[2018-03-12] MEDS: CLOPIDOGREL 75 MG TABLET PO SCH (08:39)
[2018-03-12] MEDS: MINOCYCLINE 100 MG CAPSULE PO SCH ×2 (08:39→20:34)
[2018-03-12] MEDS: HEPARIN SUB-Q 5,000units/0.5ml INJECTION SQ SCH ×2 (08:40→20:35)
[2018-03-12] MEDS: ASPIRIN *EC* 81 MG TABLET PO SCH (08:40)
[2018-03-12] MEDS: ACETAMINOPHEN 325 MG TABLET PO PRN (08:54)
[2018-03-12] MEDS: AMIODARONE 200 MG TABLET PO SCH ×2 (08:55→20:35)
--- NOTE | 2018-03-12 09:43 | Pulmonology Progress Note ---
Subjective Principal diagnosis: SCHF, NSTEMI Interval history: Pt in chair, states his breathing is doing better but having pain to his AICD site. Used the hospital bipap last noc and avni well, on 5L per NC and + cough with minimal sputum noted. Exam Vital signs: Temperature 96.6 F L 03/12/18 08:59 Pulse Rate 90 03/12/18 08:59 Respiratory Rate 22 03/12/18 08:59 Blood Pressure 124/80 03/12/18 08:59 Pulse Oximetry 96 03/12/18 08:59 Inpatient Medications: Generic Name Dose Route Start Last Admin Trade Name Freq PRN Reason Stop Dose Admin Acetaminophen 325 - 650 mg 03/07/18 14:20 03/12/18 08:54 Tylenol PO 650 mg Q5H PRN Administration Pain Hydrocodone Bitart/Acetaminophen 1 - 2 tab 03/07/18 14:20 03/11/18 19:26 [place] 5/325 PO 1 tab Q5H PRN Administration Pain Al Hydroxide/Mg Hydroxide 30 ml 03/07/18 14:20 Maalox Plus PO Q3H PRN Indigestion Albuterol Sulfate 2.5 mg 03/12/18 02:04 03/12/18 02:06 Proventil Neb (0.083%) AEROSOL 2.5 mg Q2HR PRN Administration Albuterol/Ipratropium 3 ml 03/10/18 11:00 03/12/18 07:50 Duoneb AEROSOL 3 ml RTQID WILLAM Administration Amiodarone HCl 200 mg 03/08/18 21:25 03/12/18 08:55 Pacerone PO 200 mg BID WILLAM Administration Aspirin 81 mg 03/07/18 09:00 03/12/18 08:40 Ecotrin PO 81 mg DAILY WILLAM Administration Atorvastatin Calcium 20 mg 03/08/18 21:00 03/11/18 21:39 Lipitor PO 20 mg HS WILLAM Administration Atropine Sulfate 0.5 mg 03/07/18 14:20 Atropine IVP Q5M PRN Bradycardia Bisacodyl 5 - 10 mg 03/07/18 14:20 Dulcolax PO DAILY PRN Constipation Bisacodyl 10 mg 03/07/18 14:20 Dulcolax RECTALLY DAILY PRN Constipation Budesonide/Formoterol Fumarate 2 puff 03/07/18 12:39 03/12/18 08:17 Symbicort Inhaler ORAL INH 2 puff BID [facility] Administration Carvedilol 6.25 mg 03/10/18 16:37 03/12/18 08:37 Coreg PO 6.25 mg BIDWM [facility] Administration Clopidogrel Bisulfate 75 mg 03/07/18 09:00 03/12/18 08:39 Plavix PO 75 mg DAILY [facility] Administration Docusate Sodium 100 mg 03/07/18 21:00 03/12/18 08:39 Colace PO 100 mg BID WILLAM Administration Docusate Sodium 100 mg 03/07/18 12:50 Colace PO BID PRN Heparin Sodium (Porcine) 5,000 units 03/11/18 09:00 03/12/18 08:40 Heparin Sq SQ 5,000 units Q12HR [facility] Administration Levothyroxine Sodium 250 mcg 03/08/18 06:30 03/09/18 06:09 Synthroid PO 250 mcg SUSA@0630 [facility] Administration Levothyroxine Sodium 125 mcg 03/10/18 06:30 03/12/18 06:07 Synthroid PO 125 mcg MOTUWETHFR@0630 [facility] Administration Lorazepam 0.5 - 1 mg 03/07/18 14:20 03/10/18 22:56 Ativan PO 1 mg Q4H PRN Administration Anxiety Lorazepam 0.5 - 1 mg 03/07/18 14:20 03/12/18 03:30 Ativan Inj IVP 0.5 mg Q4H PRN Administration Anxiety Magnesium Hydroxide 30 ml 03/07/18 14:20 Mom PO DAILY PRN Constipation Metoclopramide HCl 5 - 10 mg 03/07/18 14:20 Reglan IVP Q6H PRN Nausea &/or vomiting Minocycline HCl 100 mg 03/11/18 21:00 03/12/18 08:39 Minocin PO 03/18/18 20:59 100 mg BID [facility] Administration Morphine Sulfate 2 - 4 mg 03/07/18 14:20 Morphine Sulfate Inj IVP Q5M PRN Angina Nitroglycerin 0.4 mg 03/07/18 14:20 Nitrostat SL Q5M PRN Angina Ondansetron HCl 4 mg 03/07/18 14:20 Zofran IVP Q6H PRN Nausea &/or vomiting Promethazine HCl 12.5 - 25 mg 04/20/18 14:20 Phenergan Inj IVP Q6HR PRN Nausea &/or vomiting Ranitidine HCl 150 mg 03/07/18 18:00 03/11/18 19:24 Zantac PO 150 mg 1800 WILLAM Administration Sodium Chloride 10 - 80 ml 03/09/18 14:34 03/10/18 07:52 Iv Flush IV 20 ml PRN PRN Administration Flushing Sodium Chloride 10 ml 03/10/18 20:02 Iv Flush IV PRN PRN Flushing Tramadol HCl 50 mg 03/06/18 18:28 Ultram PO Q6H PRN Pain Discontinued Medications Generic Name Dose Route Start Last Admin Trade Name Freq PRN Reason Stop Dose Admin Acetaminophen 650 mg 03/06/18 18:27 Tylenol PO Q5H PRN Pain Adenosine 6 mg 03/06/18 16:02 03/06/18 16:02 Adenocard IVP 03/06/18 16:03 6 mg O ONE Administration Adenosine 12 mg 03/06/18 16:06 03/06/18 16:06 Adenocard IVP 03/06/18 16:07 12 mg O ONE Administration Atorvastatin Calcium 20 mg 03/07/18 18:00 03/10/18 21:34 Lipitor PO Not Given 1800 WILLAM Budesonide/Formoterol Fumarate 2 puff 03/07/18 21:00 Symbicort Inhaler ORAL INH BID WILLAM Bumetanide 1 mg 03/06/18 16:09 03/06/18 18:08 Bumex 1 Mg/4 Ml Inj. IVP 03/06/18 16:10 1 mg O ONE Administration Bumetanide 1 mg 03/06/18 16:10 03/06/18 18:09 Bumex 1 Mg/4 Ml Inj. IVP 03/06/18 16:11 1 mg O ONE Administration Bumetanide 1 mg 03/06/18 16:11 03/06/18 16:11 Bumex 1 Mg/4 Ml Inj. IVP 03/06/18 16:12 1 mg O ONE Administration Bumetanide 2 mg 03/07/18 21:00 03/10/18 21:33 Bumex 1 Mg/4 Ml Inj. IVP Not Given QID WILLAM Bumetanide 2 mg 03/08/18 15:00 03/09/18 04:06 Bumex 1 Mg/4 Ml Inj. IVP Not Given Q6HR WILLAM Bumetanide 1 mg 03/09/18 09:00 03/10/18 08:16 Bumex 1 Mg/4 Ml Inj. IVP 1 mg BID WILLAM Administration Bumetanide 1 mg 03/09/18 14:33 03/09/18 15:41 Bumex 1 Mg/4 Ml Inj. IVP 03/09/18 14:34 1 mg O ONE Administration Bumetanide 2 mg 03/10/18 16:07 03/10/18 20:15 Bumex 1 Mg Tab PO 2 mg [id number] WILLAM Administration Carvedilol 3.125 mg 03/07/18 10:53 03/10/18 07:52 Coreg PO 3.125 mg BIDWM WILLAM Administration Device 1 each 03/07/18 12:57 03/07/18 12:59 [facility] 03/07/18 12:58 1 each O ONE Administration Heparin Sodium (Beef Lung) 6,000 unit 03/06/18 17:04 03/06/18 17:22 Heparin Bolus IVP 03/06/18 17:05 6,000 unit O ONE Administration Heparin Sodium (Beef Lung) 5,000 unit 03/06/18 22:04 03/06/18 22:10 Heparin Bolus IVP 03/06/18 22:05 5,000 unit O ONE Administration Heparin Sodium (Beef Lung) 2,000 unit 03/07/18 09:00 03/07/18 09:21 Heparin Bolus IVP 03/07/18 09:01 2,000 unit O ONE Administration Heparin Sodium (Porcine) 1 each 03/06/18 16:17 Pharmacy Consult - Heparin 03/06/18 16:18 ONE TIME ONE Heparin Sodium (Porcine) 5,000 units 03/09/18 09:00 03/09/18 21:31 Heparin Sq SQ 5,000 units Q12HR WILLAM Administration Bumetanide 25 mg/ IV Solution 100 mls @ 2 mls/hr 03/06/18 16:15 03/07/18 18: 19 IV Not Given Q24H WILLAM Heparin Sodium (Porcine) 20,000 unit in 500 mls @ 30 mls/hr 03/06/18 17:05 14:00 Heparin Drip IV Infused .[id number] WILLAM Titration Protocol 1,200 UNIT/HR Amiodarone HCl 900 mg/ Sodium 500 mls @ 16.66 mls/hr 03/07/18 00:31 03/08/18 12:41 Chloride IV Not Given .Q24H WILLAM 0.5 MG/MIN Amiodarone HCl 450 mg/ Sodium 250 mls @ 33.33 mls/hr 03/06/18 18:30 03/07/18 02:11 Chloride IV 03/07/18 00:30 Infused .[id number] WILLAM Infusion 1 MG/MIN Amiodarone HCl 150 mg/ Sodium 103 mls @ 618 mls/hr 03/06/18 18:20 03/06/18 19 :59 Chloride IV 03/06/18 18:29 Infused O ONE Infusion Heparin Sodium (Porcine) 20,000 unit in 500 mls @ 35 mls/hr 03/07/18 09:00 09:19 Heparin Drip IV Not Given .[id number] WILLAM Protocol 1,400 UNIT/HR Sodium Chloride 1,000 mls @ 50 mls/hr 03/07/18 14:30 03/08/18 06:17 Normal Saline IV 03/08/18 00:30 50 mls/hr .Q20H WILLAM Infusion Cefazolin Sodium 1 g/ Sodium 100 mls @ 200 mls/hr 03/11/18 01:00 03/11/18 09: 37 Chloride IV 03/11/18 09:29 Infused Q8HR WILLAM Infusion Losartan Potassium 25 mg 03/07/18 11:00 03/08/18 12:50 Cozaar PO 25 mg DAILY WILLAM Administration Magnesium Hydroxide 30 ml 03/07/18 12:50 Mom PO DAILY PRN Constipation Mirabegron 50 mg 03/07/18 09:00 03/08/18 08:38 Myrbetriq PO 50 mg DAILY WILLAM Administration Morphine Sulfate 2 - 4 mg 03/07/18 14:20 Morphine Sulfate Inj IVP 03/08/18 14:19 Q2H PRN Pain Ondansetron HCl 4 mg 03/06/18 18:28 Zofran IVP Q6H PRN Nausea &/or vomiting Pharmacy Consult 1 each 03/11/18 15:34 Pharmacy Consult - Fall Risk 03/11/18 15:35 ONE TIME ONE Potassium Chloride 20 meq 03/08/18 21:23 03/08/18 22:08 K-Dur 20 Meq Tablet PO 03/08/18 21:24 20 meq O ONE Administration Potassium Chloride 20 meq 03/09/18 14:33 03/11/18 08:59 K-Dur 20 Meq Tablet PO 20 meq WB WILLAM Administration Tamsulosin HCl 0.4 mg 03/07/18 18:00 03/08/18 19:04 Flomax PO 0.4 mg 1800 WILLAM Administration - Constitutional no acute distress, obese, cooperative - Routine HEENT Exam Head: Present: normocephalic, atraumatic Eye: Present: EOMI, PERRL - Routine Neck Exam Present: supple, full ROM, trachea midline - Routine Respiratory Exam Present: decreased breath sounds, rhonchi. Absent: accessory muscle use - Routine Cardiovascular Exam Present: RRR, S1, S2, no murmur - Routine Abdominal Exam Present: soft, normoactive bowel sounds - Routine Extremities Exam Present: no edema, non tender, full ROM. Absent: cyanosis, clubbing, edema Comments: LE amputation - Routine Back/Spine/Pelvis Exam Back/Spine: Present: full ROM - Routine Skin Exam Present: intact, dry - Routine Neurological Exam Present: alert, oriented X3, CN II-XII intact - Routine Psychiatric Exam Present: normal affect, cooperative - Urinary Catheter Management Urethral Cath placed during this visit: yes Urethral indwelling: Yes Insertion date: 03/06/18 Insertion time: 16:15 Results - Laboratory Findings Laboratory: Laboratory Results - last 48 hr 03/10/18 03/10/18 03/11/18 09:47 14:07 04:43 WBC RBC Hgb Hct MCV MCH MCHC RDW Std Deviation Plt Count MPV Immature Gran % (Auto) Neut % (Auto) Lymph % (Auto) [place] % (Auto) Eos % (Auto) Baso % (Auto) Neut # (Auto) Lymph # (Auto) [place] # (Auto) Eos # (Auto) Baso # (Auto) Abs Immat Gran (auto) Neutrophils % (Manual) Lymphocytes % (Manual) Monocytes % (Manual) Basophils % (Manual) Neutrophils # (Manual) Lymphocytes # (Manual) Monocytes # (Manual) Basophils # (Manual) Polychromasia Anisocytosis RBC Morph Comment Sample Site Alveolar Air PO2 ABG pH ABG pCO2 ABG pO2 ABG HCO3 ABG Total CO2 ABG O2 Saturation ABG Base Excess Modified [place] Test A-a Gradient a/A Ratio O2 Delivery Method Vent Rate FiO2 Tidal Volume Turbidity < 20 Sodium 137 Potassium 4.3 Chloride 96 L Carbon Dioxide 27 Anion Gap 14 BUN 59.0 H* Creatinine 2.5 H D GFR Calculation 27 BUN/Creatinine Ratio 24 Glucose 133 H Calculated Osmolality 283 H Calcium 8.7 Magnesium Icterus Index < 2 Plasma Lactate 1.4 1.5 Specimen Hemolysis < 15 03/11/18 03/11/18 03/12/18 04:44 08:13 04:22 WBC 14.5 H 19.1 H RBC 3.88 L 3.94 L Hgb 12.8 L 12.9 L Hct 39.0 L 39.4 L MCV 100.5 H 100.0 MCH 33.0 32.7 MCHC 32.8 32.7 RDW Std Deviation 57.3 H 56.5 H Plt Count 140 146 MPV 11.2 11.3 Immature Gran % (Auto) Not performed Neut % (Auto) Not performed Lymph % (Auto) Not performed [place] % (Auto) Not performed Eos % (Auto) Not performed Baso % (Auto) Not performed Neut # (Auto) Not performed Lymph # (Auto) Not performed [place] # (Auto) Not performed Eos # (Auto) Not performed Baso # (Auto) Not performed Abs Immat Gran (auto) Not performed Neutrophils % (Manual) 73.0 H Lymphocytes % (Manual) 16.0 L Monocytes % (Manual) 10.0 H Basophils % (Manual) 1.0 Neutrophils # (Manual) 10.6 H Lymphocytes # (Manual) 2.3 Monocytes # (Manual) 1.5 H Basophils # (Manual) 0.1 Polychromasia 1+ Anisocytosis 1+ RBC Morph Comment Abnormal Sample Site R radial Alveolar Air PO2 166.1 ABG pH 7.422 ABG pCO2 34 ABG pO2 103.7 H ABG HCO3 22.3 ABG Total CO2 23.3 ABG O2 Saturation 98.2 H ABG Base Excess -1.6 Modified [place] Test Positive A-a Gradient 62.5 a/A Ratio 62.4 O2 Delivery Method Bipap Vent Rate 30 FiO2 30 Tidal Volume 513 Turbidity Sodium Potassium Chloride Carbon Dioxide Anion Gap BUN Creatinine GFR Calculation BUN/Creatinine Ratio Glucose Calculated Osmolality Calcium Magnesium Icterus Index Plasma Lactate Specimen Hemolysis 03/12/18 04:22 WBC RBC Hgb Hct MCV MCH MCHC RDW Std Deviation Plt Count MPV Immature Gran % (Auto) Neut % (Auto) Lymph % (Auto) [place] % (Auto) Eos % (Auto) Baso % (Auto) Neut # (Auto) Lymph # (Auto) [place] # (Auto) Eos # (Auto) Baso # (Auto) Abs Immat Gran (auto) Neutrophils % (Manual) Lymphocytes % (Manual) Monocytes % (Manual) Basophils % (Manual) Neutrophils # (Manual) Lymphocytes # (Manual) Monocytes # (Manual) Basophils # (Manual) Polychromasia Anisocytosis RBC Morph Comment Sample Site Alveolar Air PO2 ABG pH ABG pCO2 ABG pO2 ABG HCO3 ABG Total CO2 ABG O2 Saturation ABG Base Excess Modified [place] Test A-a Gradient a/A Ratio O2 Delivery Method Vent Rate FiO2 Tidal Volume Turbidity < 20 Sodium 136 Potassium 5.2 H D Chloride 95 L Carbon Dioxide 24 Anion Gap 17 H BUN 84.0 H* Creatinine 3.3 H D GFR Calculation 19 BUN/Creatinine Ratio 26 Glucose 124 H Calculated Osmolality 289 H Calcium 8.7 Magnesium 2.5 H D Icterus Index < 2 Plasma Lactate Specimen Hemolysis < 15 Assessment and Plan - Assessment and Plan Acute Hypoxic respiratory Failure COPD Pulmonary edema Nonischemic Cardiomyopathy/systolic HF EF 10-15% VHD svere MR/TR Vtach NSTEM JIMMIE on CKD (Baseline Ballistics Tester 1.6) Plan: Pt currently on O2 at 5L per NC, avni. Using hospital bipap qhs and respiratory distress likely secondary to pulmonary edema, f16, 14/5, Vt 600. Off bumex at this time, Cr 3.3 this am per primary. S/P AICD per Dr. Stahl, site c/d/i, WBC up slightly, afebrile, BC's NTD, follow closely. Cont on Bt's with symbicort BID and A/A QID. - Time Spent With Patient Total time spent is greater than 50% in coordination of care (as documented) at patient's floor/unit and/or counseling patient: less than 15 minutes
[2018-03-12] MEDS ORDERED: DOPamine PREMIX 400 MG/250 ML BAG IV PRN (09:46)
[2018-03-12] MEDS ORDERED: NS 1,000 ML IV SCH (10:00)
--- NOTE | 2018-03-12 10:36 | Ultrasound Report ---
Indication: JIMMIE PROCEDURE: US renal BI: Encounter: Initial Comparison: None Technique: Grayscale and color Doppler sonographic imaging of both kidneys was performed. FINDINGS: Visualization of the left kidney was limited due to body habitus and acoustic shadowing. No gross hydronephrosis or renal mass. The right kidney measures 8.9 cm in length, and the left kidney measures 9.8 cm in length. IMPRESSION: No hydronephrosis. .
[2018-03-12] MEDS: TRAMADOL 50 MG TABLET PO PRN ×2 (10:55→22:41)
[2018-03-12] MEDS: SALINE FLUSH 10ml SYRINGE IV PRN (10:56)
--- NOTE | 2018-03-12 11:23 | Cardiology Progress Note ---
<Sammie Carranza K - Last Filed: 03/12/18 13:31> Subjective Principal diagnosis: SCHF, NSTEMI Interval history: Mirza is seen in follow up for NSTEMI, SVT, and sustained VT that required cardioversion at bedside. Pt is sitting up in bed, awake and alert, O2 5L per NC, denies chest pain or pressure, palpitations, or shortness of breath. Exam Vital signs: Temperature 96.6 F L 03/12/18 08:59 Pulse Rate 90 03/12/18 08:59 Respiratory Rate 22 03/12/18 08:59 Blood Pressure 124/80 03/12/18 08:59 Pulse Oximetry 96 03/12/18 08:59 Inpatient Medications: Generic Name Dose Route Start Last Admin Trade Name Freq PRN Reason Stop Dose Admin Acetaminophen 325 - 650 mg 03/07/18 14:20 03/12/18 08:54 Tylenol PO 650 mg Q5H PRN Administration Pain Hydrocodone Bitart/Acetaminophen 1 - 2 tab 03/07/18 14:20 03/11/18 19:26 Amorita 5/325 PO 1 tab Q5H PRN Administration Pain Al Hydroxide/Mg Hydroxide 30 ml 03/07/18 14:20 Maalox Plus PO Q3H PRN Indigestion Albuterol Sulfate 2.5 mg 03/12/18 02:04 03/12/18 02:06 Proventil Neb (0.083%) AEROSOL 2.5 mg Q2HR PRN Administration Albuterol/Ipratropium 3 ml 03/10/18 11:00 03/12/18 07:50 Duoneb AEROSOL 3 ml RTQID WILLAM Administration Amiodarone HCl 200 mg 03/08/18 21:25 03/12/18 08:55 Pacerone PO 200 mg BID WILLAM Administration Aspirin 81 mg 03/07/18 09:00 03/12/18 08:40 Ecotrin PO 81 mg DAILY WILLAM Administration Atorvastatin Calcium 20 mg 03/08/18 21:00 03/11/18 21:39 Lipitor PO 20 mg HS WILLAM Administration Atropine Sulfate 0.5 mg 03/07/18 14:20 Atropine IVP Q5M PRN Bradycardia Bisacodyl 5 - 10 mg 03/07/18 14:20 Dulcolax PO DAILY PRN Constipation Bisacodyl 10 mg 03/07/18 14:20 Dulcolax RECTALLY DAILY PRN Constipation Budesonide/Formoterol Fumarate 2 puff 03/07/18 12:39 03/12/18 08:17 Symbicort Inhaler ORAL INH 2 puff BID WILLAM Administration Carvedilol 6.25 mg 03/10/18 16:37 03/12/18 08:37 Coreg PO 6.25 mg BIDWM WILLAM Administration Clopidogrel Bisulfate 75 mg 03/07/18 09:00 03/12/18 08:39 Plavix PO 75 mg DAILY WILLAM Administration Docusate Sodium 100 mg 03/07/18 21:00 03/12/18 08:39 Colace PO 100 mg BID WILLAM Administration Docusate Sodium 100 mg 03/07/18 12:50 Colace PO BID PRN Heparin Sodium (Porcine) 5,000 units 03/11/18 09:00 03/12/18 08:40 Heparin Sq SQ 5,000 units Q12HR WILLAM Administration Sodium Chloride 1,000 mls @ 75 mls/hr 03/12/18 10:00 03/12/18 10:55 Normal Saline IV 03/12/18 23:19 75 mls/hr .[id number] WILLAM Administration Dopamine HCl/Dextrose 400 mg in 250 mls @ 7.073 mls/hr 03/12/18 11:15 Dopamine Drip IV .Q24H WILLAM Protocol 2 MCG/KG/MIN Levothyroxine Sodium 250 mcg 03/08/18 06:30 03/09/18 06:09 Synthroid PO 250 mcg SUSA@0630 WILLAM Administration Levothyroxine Sodium 125 mcg 03/10/18 06:30 03/12/18 06:07 Synthroid PO 125 mcg MOTUWETHFR@0630 WILLAM Administration Lorazepam 0.5 - 1 mg 03/07/18 14:20 03/10/18 22:56 Ativan PO 1 mg Q4H PRN Administration Anxiety Lorazepam 0.5 - 1 mg 03/07/18 14:20 03/12/18 03:30 Ativan Inj IVP 0.5 mg Q4H PRN Administration Anxiety Magnesium Hydroxide 30 ml 03/07/18 14:20 Mom PO DAILY PRN Constipation Metoclopramide HCl 5 - 10 mg 03/07/18 14:20 Reglan IVP Q6H PRN Nausea &/or vomiting Minocycline HCl 100 mg 03/11/18 21:00 03/12/18 08:39 Minocin PO 03/18/18 20:59 100 mg BID WILLAM Administration Morphine Sulfate 2 - 4 mg 03/07/18 14:20 Morphine Sulfate Inj IVP Q5M PRN Angina Nitroglycerin 0.4 mg 03/07/18 14:20 Nitrostat SL Q5M PRN Angina Ondansetron HCl 4 mg 03/07/18 14:20 Zofran IVP Q6H PRN Nausea &/or vomiting Promethazine HCl 12.5 - 25 mg 03/07/18 14:20 Phenergan Inj IVP Q6HR PRN Nausea &/or vomiting Ranitidine HCl 150 mg 03/07/18 18:00 03/11/18 19:24 Zantac PO 150 mg 1800 WILLAM Administration Sodium Chloride 10 - 80 ml 03/09/18 14:34 03/12/18 10:56 Iv Flush IV 10 ml PRN PRN Administration Flushing Sodium Chloride 10 ml 03/10/18 20:02 Iv Flush IV PRN PRN Flushing Tramadol HCl 50 mg 03/06/18 18:28 03/12/18 10:55 Ultram PO 50 mg Q6H PRN Administration Pain Discontinued Medications Generic Name Dose Route Start Last Admin Trade Name Freq PRN Reason Stop Dose Admin Acetaminophen 650 mg 03/06/18 18:27 Tylenol PO Q5H PRN Pain Adenosine 6 mg 03/06/18 16:02 03/06/18 16:02 Adenocard IVP 03/06/18 16:03 6 mg O ONE Administration Adenosine 12 mg 03/06/18 16:06 03/06/18 16:06 Adenocard IVP 03/06/18 16:07 12 mg O ONE Administration Atorvastatin Calcium 20 mg 03/07/18 18:00 03/10/18 21:34 Lipitor PO Not Given 1800 [facility] Budesonide/Formoterol Fumarate 2 puff 03/07/18 21:00 Symbicort Inhaler ORAL INH BID WILLAM Bumetanide 1 mg 03/06/18 16:09 03/06/18 18:08 Bumex 1 Mg/4 Ml Inj. IVP 03/06/18 16:10 1 mg O ONE Administration Bumetanide 1 mg 03/06/18 16:10 03/06/18 18:09 Bumex 1 Mg/4 Ml Inj. IVP 03/06/18 16:11 1 mg O ONE Administration Bumetanide 1 mg 03/06/18 16:11 03/06/18 16:11 Bumex 1 Mg/4 Ml Inj. IVP 03/06/18 16:12 1 mg O ONE Administration Bumetanide 2 mg 03/07/18 21:00 03/10/18 21:33 Bumex 1 Mg/4 Ml Inj. IVP Not Given QID [facility] Bumetanide 2 mg 03/08/18 15:00 03/09/18 04:06 Bumex 1 Mg/4 Ml Inj. IVP Not Given Q6HR [facility] Bumetanide 1 mg 03/09/18 09:00 03/10/18 08:16 Bumex 1 Mg/4 Ml Inj. IVP 1 mg BID WILLAM Administration Bumetanide 1 mg 03/09/18 14:33 03/09/18 15:41 Bumex 1 Mg/4 Ml Inj. IVP 03/09/18 14:34 1 mg O ONE Administration Bumetanide 2 mg 03/10/18 16:07 03/10/18 20:15 Bumex 1 Mg Tab PO 2 mg [id number] [facility] Administration Carvedilol 3.125 mg 03/07/18 10:53 03/10/18 07:52 Coreg PO 3.125 mg BIDWM [facility] Administration Device 1 each 03/07/18 12:57 03/07/18 12:[facility] 03/07/18 12:58 1 each O ONE Administration Heparin Sodium (Beef Lung) 6,000 unit 03/06/18 17:04 03/06/18 17:22 Heparin Bolus IVP 03/06/18 17:05 6,000 unit O ONE Administration Heparin Sodium (Beef Lung) 5,000 unit 03/06/18 22:04 03/06/18 22:10 Heparin Bolus IVP 03/06/18 22:05 5,000 unit O ONE Administration Heparin Sodium (Beef Lung) 2,000 unit 03/07/18 09:00 03/07/18 09:21 Heparin Bolus IVP 03/07/18 09:01 2,000 unit O ONE Administration Heparin Sodium (Porcine) 1 each 03/06/18 16:17 Pharmacy Consult - Heparin 03/06/18 16:18 ONE TIME ONE Heparin Sodium (Porcine) 5,000 units 03/09/18 09:00 03/09/18 21:31 Heparin Sq SQ 5,000 units Q12HR WILLAM Administration Bumetanide 25 mg/ IV Solution 100 mls @ 2 mls/hr 03/06/18 16:15 03/07/18 18: 19 IV Not Given Q24H WILLAM Heparin Sodium (Porcine) 20,000 unit in 500 mls @ 30 mls/hr 03/06/18 17:05 14:00 Heparin Drip IV Infused .[id number] WILLAM Titration Protocol 1,200 UNIT/HR Amiodarone HCl 900 mg/ Sodium 500 mls @ 16.66 mls/hr 03/07/18 00:31 03/08/18 12:41 Chloride IV Not Given .Q24H WILLAM 0.5 MG/MIN Amiodarone HCl 450 mg/ Sodium 250 mls @ 33.33 mls/hr 03/06/18 18:30 03/07/18 02:11 Chloride IV 03/07/18 00:30 Infused .[id number] WILLAM Infusion 1 MG/MIN Amiodarone HCl 150 mg/ Sodium 103 mls @ 618 mls/hr 03/06/18 18:20 03/06/18 19 :59 Chloride IV 03/06/18 18:29 Infused O ONE Infusion Heparin Sodium (Porcine) 20,000 unit in 500 mls @ 35 mls/hr 03/07/18 09:00 09:19 Heparin Drip IV Not Given .[id number] WILLAM Protocol 1,400 UNIT/HR Sodium Chloride 1,000 mls @ 50 mls/hr 03/07/18 14:30 03/08/18 06:17 Normal Saline IV 03/08/18 00:30 50 mls/hr .Q20H WILLAM Infusion Cefazolin Sodium 1 g/ Sodium 100 mls @ 200 mls/hr 03/11/18 01:00 03/11/18 09: 37 Chloride IV 03/11/18 09:29 Infused Q8HR WILLAM Infusion Dopamine HCl/Dextrose 400 mg in 250 mls @ 7.073 mls/hr 03/12/18 09:46 Dopamine Drip IV .Q24H PRN Protocol 2 MCG/KG/MIN Losartan Potassium 25 mg 03/07/18 11:00 03/08/18 12:50 Cozaar PO 25 mg DAILY WILLAM Administration Magnesium Hydroxide 30 ml 03/07/18 12:50 Mom PO DAILY PRN Constipation Mirabegron 50 mg 03/07/18 09:00 03/08/18 08:38 Myrbetriq PO 50 mg DAILY WILLAM Administration Morphine Sulfate 2 - 4 mg 03/07/18 14:20 Morphine Sulfate Inj IVP 03/08/18 14:19 Q2H PRN Pain Ondansetron HCl 4 mg 03/06/18 18:28 Zofran IVP Q6H PRN Nausea &/or vomiting Pharmacy Consult 1 each 03/11/18 15:34 Pharmacy Consult - Fall Risk 03/11/18 15:35 ONE TIME ONE Potassium Chloride 20 meq 03/08/18 21:23 03/08/18 22:08 K-Dur 20 Meq Tablet PO 03/08/18 21:24 20 meq O ONE Administration Potassium Chloride 20 meq 03/09/18 14:33 03/11/18 08:59 K-Dur 20 Meq Tablet PO 20 meq WB WILLAM Administration Tamsulosin HCl 0.4 mg 03/07/18 18:00 03/08/18 19:04 Flomax PO 0.4 mg 1800 WILLAM Administration - Constitutional no acute distress, well nourished, well developed, cooperative - Routine HEENT Exam Head: Present: normocephalic, atraumatic Eye: Present: EOMI, PERRL, conjunctivae pink ENT: Present: mucous membranes moist - Routine Chest/Breast/Axilla Exam Chest wall: Present: tenderness (at AICD inplantation site), pacemaker - Routine Respiratory Exam Present: accessory muscle use, decreased breath sounds. Absent: rales, wheezes - Routine Cardiovascular Exam Present: RRR, S1, S2. Absent: JVD - Routine Abdominal Exam Present: soft, normoactive bowel sounds, non tender, distended - Routine Extremities Exam Present: edema (mild to RLE), amputation (L AKA) - Routine Skin Exam Present: intact, dry, warm, wounds. Absent: rash Comments: AICD incision clean and dry, edges well approximated, steri-strips in place. No redness, swelling or drainage noted. - Routine Neurological Exam Present: alert, oriented X3 - Routine Psychiatric Exam Present: normal affect. Absent: good insight, good judgment - Urinary Catheter Management Urethral Cath placed during this visit: yes Urethral indwelling: Yes Insertion date: 03/06/18 Insertion time: 16:15 Results 03/12/18 04:22 03/12/18 09:57 CBC 03/12/18 03/12/18 Range/Units 04:22 04:22 WBC 19.1 H Cancelled (4.5-11.0) T/MM3 RBC 3.94 L Cancelled (4.50-5.90) M/MM3 Hgb 12.9 L Cancelled (13.5-17.5) GM/DL Hct 39.4 L Cancelled (41-53) % Plt Count 146 Cancelled (130-400) T/MM3 Comprehensive Metabolic Panel 03/12/18 03/12/18 Range/Units 04:22 09:57 Sodium 136 135 (134-144) MEQ/L Potassium 5.2 H D 5.2 H (3.6-5) MEQ/L Chloride 95 L 96 L (98-107) MEQ/L Carbon Dioxide 24 23 (22-30) MEQ/L BUN 84.0 H* 91.0 H* (9-20) MG/DL Creatinine 3.3 H D 3.5 H D (0.8-1.5) mg/dL Glucose 124 H 157 H (75-110) MG/DL Calcium 8.7 8.8 (8.4-10.2) MG/DL Intake and Output 03/11/18 03/12/18 03/12/18 22:59 06:59 14:59 Intake Total 410 / 410 290 / 290 240 / 240 Output Total 100 / 100 175 / 175 75 / 75 Balance 310 / 310 115 / 115 165 / 165 Intake: Oral 410 / 410 290 / 290 240 / 240 Output: Urine Amount (Catheter) 100 / 100 175 / 175 75 / 75 Other: Urine Appearance Cloudy Clear Clear Urine Color Straw Dark Yellow Straw Urine Odor Normal Normal Weight 94.1 kg Patient Weight 03/13/18 06:59 Weight 94.1 kg - Imaging and Cardiology EKG results: image reviewed - EKG Interpretation EKG: no acute changes EKG shows: tachycardia Assessment and Plan - Assessment and Plan (1) Cardiomyopathy Current visit: Yes Status: Chronic (2) HTN (hypertension) Current visit: Yes Status: Chronic (3) CAD (coronary artery disease) Current visit: Yes Status: Chronic (4) CKD (chronic kidney disease) Current visit: Yes Status: Chronic (5) Hyperlipidemia Current visit: Yes Status: Chronic (6) Acute dyspnea Current visit: No Status: Acute (7) Acute systolic CHF (congestive heart failure) Current visit: Yes Status: Acute (8) SVT (supraventricular tachycardia) Current visit: No Status: Acute (9) NSTEMI (non-ST elevated myocardial infarction) Current visit: Yes Status: Acute - Assessment and Plan NSTEMI (non-ST elevated myocardial infarction) - Troponin 1) 0.239, 2) 0.236, 3)0.320 4.)0.412 - WBC trending up VT/ SVT (supraventricular tachycardia) - Continue amiodarone 200 mg PO BID - EKG in am - Bi-V AICD in place - EKG: Sinus Tachycardia, no acute changes - Monitor on tele Acute dyspnea - Presented from [facility] on 4l/NC - RCAT, on 4L per NC this am - CXR no pneumothorax. Mild pulmonary vascular congestion or edema. Acute systolic CHF (congestive heart failure) - Echo: EF 10-15%, severe MR/TR - CXR: mild pulmonary vascular congestion or edema - Cr up to 3.5, BUN 91 - BNP 9080 - Will continue to hold diuresis - Pt admits heavy ETOH consumption 6-12 beers daily for many years prior to one year ago. - Will initiate NS 75 mL/hr x 10 hours - Start dopamine gtt to help perfuse kidneys Cardiomyopathy - Echo: EF 10-15%, severe MR/ TR HTN (hypertension) - Continue Coreg 6.25 mg BID CAD (coronary artery disease) - Heart cath on 03/07/18 revealed coronaries with nonobstructive disease - Continue ASA, BB and statin - Continue Plavix d/t to stent in RLE CKD (chronic kidney disease) - BUN increased to 91/SCr 3.5 (base line 1.6) - Will continue to hold diuresis - Potassium 5.2 - Renal U/S indicated no hydronephrosis or renal mass Hyperlipidemia - Continue Statin Ppx: SQ Heparin PO Ranitidine Hospital Course Summary Disclaimer: The visit summary below is not to be considered part of the above Progress Note. Hospital Course: Impression Leukocytosis Tachycardia Elevated LFTs Cardiomyopathy- with acute systolic failure Non-STEMI V. tach hyperlipidemia Hypertension Coronary artery disease Schizophrenia Depression History of CVA Plan Continued cardiology care as per Dr. Stahl, planning for pacemaker/ defibrillator placement later today. Patient doesn't meet nursing sepsis criteria. Given tachycardia, tachypnea and leukocytosis. All 3 of these may be multifactorial including severe cardiomyopathy and respiratory distress. Will obtain UA, Lactate and Blood cultures, Chest Xray to rule out infectious etiology Given respiratory distress will consult pulmonary, Dr Gibbs for evaluation and recommendations Monitor renal function- known CKD- Salt Washer 2.2 (Baseline Salt Washer 1.6) Continues on scheduled Bumex for diuresis- Monitor renal function Appreciate medical consultation. Will continue to follow patient. At time if discharge medical care is to return to PCP in Dr Hilda Self Case discussed with attending, Dr Serna <Jose C Stahl - Last Filed: 03/14/18 13:17> Exam Vital signs: Temperature 95.3 F L 03/14/18 13:06 Pulse Rate 88 03/14/18 13:06 Respiratory Rate 18 03/14/18 13:06 Blood Pressure 106/67 03/14/18 13:06 Pulse Oximetry 90 03/14/18 13:06 Inpatient Medications: Generic Name Dose Route Start Last Admin Trade Name Freq PRN Reason Stop Dose Admin Acetaminophen 325 - 650 mg 03/07/18 14:20 03/14/18 09:24 Tylenol PO 650 mg Q5H PRN Administration Pain Hydrocodone Bitart/Acetaminophen 1 - 2 tab 03/07/18 14:20 03/14/18 06:23 Amorita 5/325 PO 1 tab Q5H PRN Administration Pain Al Hydroxide/Mg Hydroxide 30 ml 03/07/18 14:20 Maalox Plus PO Q3H PRN Indigestion Albuterol Sulfate 2.5 mg 03/12/18 02:04 03/12/18 02:06 Proventil Neb (0.083%) AEROSOL 2.5 mg Q2HR PRN Administration Albuterol/Ipratropium 3 ml 03/10/18 11:00 03/14/18 11:16 Duoneb AEROSOL 3 ml RTQID WILLAM Administration Amiodarone HCl 200 mg 03/08/18 21:25 03/14/18 09:28 Pacerone PO 200 mg BID WILLAM Administration Aspirin 81 mg 03/07/18 09:00 03/14/18 09:24 Ecotrin PO 81 mg DAILY WILLAM Administration Atorvastatin Calcium 20 mg 03/08/18 21:00 03/13/18 21:21 Lipitor PO 20 mg HS WILLAM Administration Atropine Sulfate 0.5 mg 03/07/18 14:20 Atropine IVP Q5M PRN Bradycardia Bisacodyl 5 - 10 mg 03/07/18 14:20 03/14/18 09:24 Dulcolax PO 5 mg DAILY PRN Administration Constipation Bisacodyl 10 mg 03/07/18 14:20 Dulcolax RECTALLY DAILY PRN Constipation Budesonide/Formoterol Fumarate 2 puff 03/07/18 12:39 03/14/18 09:36 Symbicort Inhaler ORAL INH 2 puff BID WILLAM Administration Carvedilol 3.125 mg 03/14/18 09:00 03/14/18 09:29 Coreg PO Not Given BIDWM WILLAM Clopidogrel Bisulfate 75 mg 03/07/18 09:00 03/14/18 09:25 Plavix PO 75 mg DAILY [facility] Administration Docusate Sodium 100 mg 03/07/18 21:00 03/14/18 09:26 Colace PO 100 mg BID WILLAM Administration Docusate Sodium 100 mg 03/07/18 12:50 Colace PO BID PRN Piperacillin Sod/Tazobactam 100 mls @ 200 mls/hr 03/14/18 08:15 03/14/18 09: 55 Sod 2.25 gm/ Sodium Chloride IV Infused Q8H WILLAM Infusion Sodium Chloride 1,000 mls @ 125 mls/hr 03/14/18 08:15 03/14/18 11:38 Normal Saline IV 03/14/18 16:14 125 mls/hr .Q8H WILLAM Infusion Levothyroxine Sodium 250 mcg 03/08/18 06:30 03/09/18 06:09 Synthroid PO 250 mcg SUSA@0630 WILLAM Administration Levothyroxine Sodium 125 mcg 03/10/18 06:30 03/14/18 05:38 Synthroid PO 125 mcg MOTUWETHFR@0630 WILLAM Administration Lorazepam 0.5 - 1 mg 03/07/18 14:20 03/12/18 14:43 Ativan PO 0.5 mg Q4H PRN Administration Anxiety Lorazepam 0.5 - 1 mg 03/07/18 14:20 03/12/18 03:30 Ativan Inj IVP 0.5 mg Q4H PRN Administration Anxiety Magnesium Hydroxide 30 ml 03/07/18 14:20 Mom PO DAILY PRN Constipation Metoclopramide HCl 5 - 10 mg 03/07/18 14:20 03/13/18 01:47 Reglan IVP 10 mg Q6H PRN Administration Nausea &/or vomiting Minocycline HCl 100 mg 03/11/18 21:00 03/14/18 09:25 Minocin PO 03/18/18 20:59 100 mg BID WILLAM Administration Morphine Sulfate 2 - 4 mg 03/07/18 14:20 Morphine Sulfate Inj IVP Q5M PRN Angina Nitroglycerin 0.4 mg 03/07/18 14:20 Nitrostat SL Q5M PRN Angina Ondansetron HCl 4 mg 03/07/18 14:20 Zofran IVP Q6H PRN Nausea &/or vomiting Promethazine HCl 12.5 - 25 mg 03/07/18 14:20 Phenergan Inj IVP Q6HR PRN Nausea &/or vomiting Ranitidine HCl 150 mg 03/07/18 18:00 03/13/18 18:03 Zantac PO 150 mg 1800 WILLAM Administration Sodium Chloride 10 - 80 ml 03/09/18 14:34 03/12/18 10:56 Iv Flush IV 10 ml PRN PRN Administration Flushing Sodium Chloride 10 ml 03/10/18 20:02 Iv Flush IV PRN PRN Flushing Tramadol HCl 50 mg 03/06/18 18:28 03/13/18 14:30 Ultram PO 50 mg Q6H PRN Administration Pain Discontinued Medications Generic Name Dose Route Start Last Admin Trade Name Freq PRN Reason Stop Dose Admin Acetaminophen 650 mg 03/06/18 18:27 Tylenol PO Q5H PRN Pain Adenosine 6 mg 03/06/18 16:02 03/06/18 16:02 Adenocard IVP 03/06/18 16:03 6 mg O ONE Administration Adenosine 12 mg 03/06/18 16:06 03/06/18 16:06 Adenocard IVP 03/06/18 16:07 12 mg O ONE Administration Atorvastatin Calcium 20 mg 03/07/18 18:00 03/10/18 21:34 Lipitor PO Not Given 1800 WILLAM Budesonide/Formoterol Fumarate 2 puff 03/07/18 21:00 Symbicort Inhaler ORAL INH BID WILLAM Bumetanide 1 mg 03/06/18 16:09 03/06/18 18:08 Bumex 1 Mg/4 Ml Inj. IVP 03/06/18 16:10 1 mg O ONE Administration Bumetanide 1 mg 03/06/18 16:10 03/06/18 18:09 Bumex 1 Mg/4 Ml Inj. IVP 03/06/18 16:11 1 mg O ONE Administration Bumetanide 1 mg 03/06/18 16:11 03/06/18 16:11 Bumex 1 Mg/4 Ml Inj. IVP 03/06/18 16:12 1 mg O ONE Administration Bumetanide 2 mg 03/07/18 21:00 03/10/18 21:33 Bumex 1 Mg/4 Ml Inj. IVP Not Given QID WILLAM Bumetanide 2 mg 03/08/18 15:00 03/09/18 04:06 Bumex 1 Mg/4 Ml Inj. IVP Not Given Q6HR WILLAM Bumetanide 1 mg 03/09/18 09:00 03/10/18 08:16 Bumex 1 Mg/4 Ml Inj. IVP 1 mg BID WILLAM Administration Bumetanide 1 mg 03/09/18 14:33 03/09/18 15:41 Bumex 1 Mg/4 Ml Inj. IVP 03/09/18 14:34 1 mg O ONE Administration Bumetanide 2 mg 03/10/18 16:07 03/10/18 20:15 Bumex 1 Mg Tab PO 2 mg [id number] WILLAM Administration Carvedilol 3.125 mg 03/07/18 10:53 03/10/18 07:52 Coreg PO 3.125 mg BIDWM WILLAM Administration Carvedilol 6.25 mg 03/10/18 16:37 03/13/18 09:29 Coreg PO 6.25 mg BIDWM WILLAM Administration Device 1 each 03/07/18 12:57 03/07/18 12:59 Optichamber 03/07/18 12:58 1 each O ONE Administration Heparin Sodium (Beef Lung) 6,000 unit 03/06/18 17:04 03/06/18 17:22 Heparin Bolus IVP 03/06/18 17:05 6,000 unit O ONE Administration Heparin Sodium (Beef Lung) 5,000 unit 03/06/18 22:04 03/06/18 22:10 Heparin Bolus IVP 03/06/18 22:05 5,000 unit O ONE Administration Heparin Sodium (Beef Lung) 2,000 unit 03/07/18 09:00 03/07/18 09:21 Heparin Bolus IVP 03/07/18 09:01 2,000 unit O ONE Administration Heparin Sodium (Porcine) 1 each 03/06/18 16:17 Pharmacy Consult - Heparin 03/06/18 16:18 ONE TIME ONE Heparin Sodium (Porcine) 5,000 units 03/09/18 09:00 03/09/18 21:31 Heparin Sq SQ 5,000 units Q12HR WILLAM Administration Heparin Sodium (Porcine) 5,000 units 03/11/18 09:00 03/14/18 09:26 Heparin Sq SQ 5,000 units Q12HR WILLAM Administration Bumetanide 25 mg/ IV Solution 100 mls @ 2 mls/hr 03/06/18 16:15 03/07/18 18: 19 IV Not Given Q24H WILLAM Heparin Sodium (Porcine) 20,000 unit in 500 mls @ 30 mls/hr 03/06/18 17:05 14:00 Heparin Drip IV Infused .[id number] WILLAM Titration Protocol 1,200 UNIT/HR Amiodarone HCl 900 mg/ Sodium 500 mls @ 16.66 mls/hr 03/07/18 00:31 03/08/18 12:41 Chloride IV Not Given .Q24H WILLAM 0.5 MG/MIN Amiodarone HCl 450 mg/ Sodium 250 mls @ 33.33 mls/hr 03/06/18 18:30 03/07/18 02:11 Chloride IV 03/07/18 00:30 Infused .[id number] WILLAM Infusion 1 MG/MIN Amiodarone HCl 150 mg/ Sodium 103 mls @ 618 mls/hr 03/06/18 18:20 03/06/18 19 :59 Chloride IV 03/06/18 18:29 Infused O ONE Infusion Heparin Sodium (Porcine) 20,000 unit in 500 mls @ 35 mls/hr 03/07/18 09:00 09:19 Heparin Drip IV Not Given .[id number] WILLAM Protocol 1,400 UNIT/HR Sodium Chloride 1,000 mls @ 50 mls/hr 03/07/18 14:30 03/08/18 06:17 Normal Saline IV 03/08/18 00:30 50 mls/hr .Q20H WILLAM Infusion Cefazolin Sodium 1 g/ Sodium 100 mls @ 200 mls/hr 03/11/18 01:00 03/11/18 09: 37 Chloride IV 03/11/18 09:29 Infused Q8HR WILLAM Infusion Dopamine HCl/Dextrose 400 mg in 250 mls @ 7.073 mls/hr 03/12/18 09:46 Dopamine Drip IV .Q24H PRN Protocol 2 MCG/KG/MIN Sodium Chloride 1,000 mls @ 75 mls/hr 03/12/18 10:00 03/13/18 00:44 Normal Saline IV 03/12/18 23:19 Infused .[id number] WILLAM Infusion Dopamine HCl/Dextrose 400 mg in 250 mls @ 7.073 mls/hr 03/12/18 11:15 16:06 Dopamine Drip IV Not Given .Q24H WILLAM Protocol 2 MCG/KG/MIN Vancomycin HCl 1,000 mg/ 250 mls @ 250 mls/hr 03/14/18 08:05 03/14/18 11:38 Sodium Chloride IV 03/14/18 08:06 Infused O ONE Infusion Losartan Potassium 25 mg 03/07/18 11:00 03/08/18 12:50 Cozaar PO 25 mg DAILY WILLAM Administration Magnesium Hydroxide 30 ml 03/07/18 12:50 Mom PO DAILY PRN Constipation Mirabegron 50 mg 03/07/18 09:00 03/08/18 08:38 Myrbetriq PO 50 mg DAILY WILLAM Administration Morphine Sulfate 2 - 4 mg 03/07/18 14:20 Morphine Sulfate Inj IVP 03/08/18 14:19 Q2H PRN Pain Ondansetron HCl 4 mg 03/06/18 18:28 Zofran IVP Q6H PRN Nausea &/or vomiting Pharmacy Consult 1 each 03/11/18 15:34 Pharmacy Consult - Fall Risk 03/11/18 15:35 ONE TIME ONE Potassium Chloride 20 meq 03/08/18 21:23 03/08/18 22:08 K-Dur 20 Meq Tablet PO 03/08/18 21:24 20 meq O ONE Administration Potassium Chloride 20 meq 03/09/18 14:33 03/11/18 08:59 K-Dur 20 Meq Tablet PO 20 meq WB WILLAM Administration Tamsulosin HCl 0.4 mg 03/07/18 18:00 03/08/18 19:04 Flomax PO 0.4 mg 1800 WILLAM Administration - Urinary Catheter Management Urethral Cath placed during this visit: no Results 03/14/18 06:43 03/14/18 06:43 CBC 03/14/18 Range/Units 06:43 WBC 17.4 H (4.5-11.0) T/MM3 RBC 3.98 L (4.50-5.90) M/MM3 Hgb 13.1 L (13.5-17.5) GM/DL Hct 39.7 L (41-53) % Plt Count 89 L (130-400) T/MM3 Neut # (Auto) Not performed Lymph # (Auto) Not performed Dodge # (Auto) Not performed Eos # (Auto) Not performed Baso # (Auto) Not performed Comprehensive Metabolic Panel 03/14/18 Range/Units 06:43 Sodium 134 (134-144) MEQ/L Potassium 4.6 (3.6-5) MEQ/L Chloride 96 L (98-107) MEQ/L Carbon Dioxide 23 (22-30) MEQ/L BUN 118.0 H* (9-20) MG/DL Creatinine 3.8 H D (0.8-1.5) mg/dL Glucose 115 H (75-110) MG/DL Calcium 8.6 (8.4-10.2) MG/DL Intake and Output 03/13/18 03/14/18 03/14/18 22:59 06:59 14:59 Intake Total 330 / 330 300 / 300 502.083 / 502.083 Output Total 150 / 150 250 / 250 150 / 150 Balance 180 / 180 50 / 50 352.083 / 352.083 Intake: IV 502.083 / 502.083 Ns 1,000 ml @ 125 mls/hr IV . 152.083 / 152.083 Q8H WILLAM Rx#:[id number] Piperacillin/Tazobactam 2.25 gm 100 / 100 In Ns 100 ml @ 200 mls/hr IV Q8H WILLAM Rx#:[id number] Vancomycin 1,000 mg In NS 250ml 250 / 250 250 ml @ 250 mls/hr IV O ONE Rx#:[id number] Oral 330 / 330 300 / 300 Output: Urine 150 / 150 Urine Amount (Catheter) 150 / 150 100 / 100 150 / 150 Other: Urine Appearance Cloudy Urine Color Straw Light Dark Urine Odor Normal # Bowel Movements 0 Weight 100.4 kg Patient Weight 03/15/18 06:59 Weight 100.4 kg Assessment and Plan - Assessment and Plan (1) Cardiomyopathy Current visit: Yes Status: Chronic (2) HTN (hypertension) Current visit: Yes Status: Chronic (3) CAD (coronary artery disease) Current visit: Yes Status: Chronic (4) CKD (chronic kidney disease) Current visit: Yes Status: Chronic (5) Hyperlipidemia Current visit: Yes Status: Chronic (6) Acute dyspnea Current visit: No Status: Acute (7) Acute systolic CHF (congestive heart failure) Current visit: Yes Status: Acute (8) SVT (supraventricular tachycardia) Current visit: No Status: Acute (9) NSTEMI (non-ST elevated myocardial infarction) Current visit: Yes Status: Acute (10) Acute renal failure superimposed on chronic kidney disease Current visit: Yes Status: Acute - Attestation Attestation Narrative: 03/14/18 13:17 Recommendation After examining the patient I agree with the above assessment. I am involved in the formulation of the patient's plan of care. Hospital Course Summary Disclaimer: The visit summary below is not to be considered part of the above Progress Note.
[2018-03-12] MEDS: DOPamine PREMIX 400 MG/250 ML BAG IV SCH (11:37)
[2018-03-12] MEDS: LORazepam 0.5 MG TABLET PO PRN (14:43)
[2018-03-12] MEDS: RANITIDINE 150 MG TABLET PO SCH (18:08)
[2018-03-12] MEDS: ATORVASTATIN 20 MG TABLET PO SCH (20:34)
[2018-03-13] MEDS: HYDROCODONE/APAP 5mg/325mg TABLET PO PRN ×3 (01:38→18:03)
[2018-03-13] MEDS: LEVOTHYROXINE 125 MCG TABLET PO SCH (05:43)
[2018-03-13] MEDS: ALBUTEROL/IPRATROPIUM 2.5mg-0.5mg/3ml NEB AEROSOL SCH ×4 (07:28→19:23)
--- NOTE | 2018-03-13 08:50 | XRay Report ---
Indication: F/U Pulmonary edema PROCEDURE: XR chest 1V: Encounter: Initial Comparison: March 11, 2018 Findings: Hazy airspace opacities in the lung bases are stable. Trace effusions. No pneumothorax. Heart size and mediastinal contours are stable. Left pacemaker defibrillator. Pulmonary vascular congestion is improved. Impression: Improving edema with residual basilar airspace disease. .
[2018-03-13] MEDS: CLOPIDOGREL 75 MG TABLET PO SCH (09:27)
[2018-03-13] MEDS: HEPARIN SUB-Q 5,000units/0.5ml INJECTION SQ SCH ×2 (09:27→21:26)
[2018-03-13] MEDS: CARVEDILOL 6.25 MG TABLET PO SCH (09:29)
[2018-03-13] MEDS: AMIODARONE 200 MG TABLET PO SCH ×2 (09:29→21:21)
[2018-03-13] MEDS: DOCUSATE SODIUM 100 MG CAPSULE PO SCH ×2 (09:29→21:21)
[2018-03-13] MEDS: ASPIRIN *EC* 81 MG TABLET PO SCH (09:29)
[2018-03-13] MEDS: MINOCYCLINE 100 MG CAPSULE PO SCH ×2 (09:35→21:22)
--- NOTE | 2018-03-13 10:15 | Cardiology Progress Note ---
<Sammie Carranza K - Last Filed: 03/13/18 14:09> Subjective Principal diagnosis: SCHF, NSTEMI Interval history: Mirza is seen in follow up for NSTEMI, SVT, and sustained VT that required cardioversion at bedside. Pt is lying in bed, bi-pap in place. Pt easily aroused, denies chest pain or pressure, some tenderness to chest wall where ICD was placed. Denies shortness of breath. Exam Vital signs: Temperature 96.5 F L 03/13/18 07:51 Pulse Rate 93 03/13/18 08:14 Respiratory Rate 20 03/13/18 07:51 Blood Pressure 108/66 03/13/18 07:51 Pulse Oximetry 99 03/13/18 07:51 Inpatient Medications: Generic Name Dose Route Start Last Admin Trade Name Freq PRN Reason Stop Dose Admin Acetaminophen 325 - 650 mg 03/07/18 14:20 03/12/18 08:54 Tylenol PO 650 mg Q5H PRN Administration Pain Hydrocodone Bitart/Acetaminophen 1 - 2 tab 03/07/18 14:20 03/13/18 09:28 Volin 5/325 PO 1 tab Q5H PRN Administration Pain Al Hydroxide/Mg Hydroxide 30 ml 03/07/18 14:20 Maalox Plus PO Q3H PRN Indigestion Albuterol Sulfate 2.5 mg 03/12/18 02:04 03/12/18 02:06 Proventil Neb (0.083%) AEROSOL 2.5 mg Q2HR PRN Administration Albuterol/Ipratropium 3 ml 03/10/18 11:00 03/13/18 07:28 Duoneb AEROSOL 3 ml RTQID [facility] Administration Amiodarone HCl 200 mg 03/08/18 21:25 03/13/18 09:29 Pacerone PO 200 mg BID WILLAM Administration Aspirin 81 mg 03/07/18 09:00 03/13/18 09:29 Ecotrin PO 81 mg DAILY WILL[facility] Administration Atorvastatin Calcium 20 mg 03/08/18 21:00 03/12/18 20:34 Lipitor PO 20 mg HS WILLAM Administration Atropine Sulfate 0.5 mg 03/07/18 14:20 Atropine IVP Q5M PRN Bradycardia Bisacodyl 5 - 10 mg 03/07/18 14:20 Dulcolax PO DAILY PRN Constipation Bisacodyl 10 mg 03/07/18 14:20 Dulcolax RECTALLY DAILY PRN Constipation Budesonide/Formoterol Fumarate 2 puff 03/07/18 12:39 03/12/18 20:05 Symbicort Inhaler ORAL INH 2 puff BID [facility] Administration Carvedilol 6.25 mg 03/10/18 16:37 03/13/18 09:29 Coreg PO 6.25 mg BIDWM WILLAM Administration Clopidogrel Bisulfate 75 mg 03/07/18 09:00 03/13/18 09:27 Plavix PO 75 mg DAILY [facility] Administration Docusate Sodium 100 mg 03/07/18 21:00 03/13/18 09:29 Colace PO 100 mg BID [facility] Administration Docusate Sodium 100 mg 03/07/18 12:50 Colace PO BID PRN Heparin Sodium (Porcine) 5,000 units 03/11/18 09:00 03/13/18 09:27 Heparin Sq SQ 5,000 units Q12HR [facility] Administration Dopamine HCl/Dextrose 400 mg in 250 mls @ 7.073 mls/hr 03/12/18 11:15 11:37 Dopamine Drip IV 2 mcg/kg/min .Q24H [facility] 7.073 mls/hr Protocol Administration 2 MCG/KG/MIN Levothyroxine Sodium 250 mcg 03/08/18 06:30 03/09/18 06:09 Synthroid PO 250 mcg SUSA@0630 [facility] Administration Levothyroxine Sodium 125 mcg 03/10/18 06:30 03/13/18 05:43 Synthroid PO 125 mcg MOTUWETHFR@0630 [facility] Administration Lorazepam 0.5 - 1 mg 03/07/18 14:20 03/12/18 14:43 Ativan PO 0.5 mg Q4H PRN Administration Anxiety Lorazepam 0.5 - 1 mg 03/07/18 14:20 03/12/18 03:30 Ativan Inj IVP 0.5 mg Q4H PRN Administration Anxiety Magnesium Hydroxide 30 ml 03/07/18 14:20 Mom PO DAILY PRN Constipation Metoclopramide HCl 5 - 10 mg 03/07/18 14:20 03/13/18 01:47 Reglan IVP 10 mg Q6H PRN Administration Nausea &/or vomiting Minocycline HCl 100 mg 03/11/18 21:00 03/13/18 09:35 Minocin PO 03/18/18 20:59 100 mg BID [facility] Administration Morphine Sulfate 2 - 4 mg 03/07/18 14:20 Morphine Sulfate Inj IVP Q5M PRN Angina Nitroglycerin 0.4 mg 03/07/18 14:20 Nitrostat SL Q5M PRN Angina Ondansetron HCl 4 mg 03/07/18 14:20 Zofran IVP Q6H PRN Nausea &/or vomiting Promethazine HCl 12.5 - 25 mg 03/07/18 14:20 Phenergan Inj IVP Q6HR PRN Nausea &/or vomiting Ranitidine HCl 150 mg 03/07/18 18:00 03/12/18 18:08 Zantac PO 150 mg 1800 [facility] Administration Sodium Chloride 10 - 80 ml 03/09/18 14:34 03/12/18 10:56 Iv Flush IV 10 ml PRN PRN Administration Flushing Sodium Chloride 10 ml 03/10/18 20:02 Iv Flush IV PRN PRN Flushing Tramadol HCl 50 mg 03/06/18 18:28 03/12/18 22:41 Ultram PO 50 mg Q6H PRN Administration Pain Discontinued Medications Generic Name Dose Route Start Last Admin Trade Name Freq PRN Reason Stop Dose Admin Acetaminophen 650 mg 03/06/18 18:27 Tylenol PO Q5H PRN Pain Adenosine 6 mg 03/06/18 16:02 03/06/18 16:02 Adenocard IVP 03/06/18 16:03 6 mg O ONE Administration Adenosine 12 mg 03/06/18 16:06 03/06/18 16:06 Adenocard IVP 03/06/18 16:07 12 mg O ONE Administration Atorvastatin Calcium 20 mg 03/07/18 18:00 03/10/18 21:34 Lipitor PO Not Given 1800 [facility] Budesonide/Formoterol Fumarate 2 puff 03/07/18 21:00 Symbicort Inhaler ORAL INH BID [facility] Bumetanide 1 mg 03/06/18 16:09 03/06/18 18:08 Bumex 1 Mg/4 Ml Inj. IVP 03/06/18 16:10 1 mg O ONE Administration Bumetanide 1 mg 03/06/18 16:10 03/06/18 18:09 Bumex 1 Mg/4 Ml Inj. IVP 03/06/18 16:11 1 mg O ONE Administration Bumetanide 1 mg 03/06/18 16:11 03/06/18 16:11 Bumex 1 Mg/4 Ml Inj. IVP 03/06/18 16:12 1 mg O ONE Administration Bumetanide 2 mg 03/07/18 21:00 03/10/18 21:33 Bumex 1 Mg/4 Ml Inj. IVP Not Given QID [facility] Bumetanide 2 mg 03/08/18 15:00 03/09/18 04:06 Bumex 1 Mg/4 Ml Inj. IVP Not Given Q6HR [facility] Bumetanide 1 mg 03/09/18 09:00 03/10/18 08:16 Bumex 1 Mg/4 Ml Inj. IVP 1 mg BID [facility] Administration Bumetanide 1 mg 03/09/18 14:33 03/09/18 15:41 Bumex 1 Mg/4 Ml Inj. IVP 03/09/18 14:34 1 mg O ONE Administration Bumetanide 2 mg 03/10/18 16:07 03/10/18 20:15 Bumex 1 Mg Tab PO 2 mg [id number] [facility] Administration Carvedilol 3.125 mg 03/07/18 10:53 03/10/18 07:52 Coreg PO 3.125 mg BIDWM [facility] Administration Device 1 each 03/07/18 12:57 03/07/18 12:59 Optichamber 03/07/18 12:58 1 each O ONE Administration Heparin Sodium (Beef Lung) 6,000 unit 03/06/18 17:04 03/06/18 17:22 Heparin Bolus IVP 03/06/18 17:05 6,000 unit O ONE Administration Heparin Sodium (Beef Lung) 5,000 unit 03/06/18 22:04 03/06/18 22:10 Heparin Bolus IVP 03/06/18 22:05 5,000 unit O ONE Administration Heparin Sodium (Beef Lung) 2,000 unit 03/07/18 09:00 03/07/18 09:21 Heparin Bolus IVP 03/07/18 09:01 2,000 unit O ONE Administration Heparin Sodium (Porcine) 1 each 03/06/18 16:17 Pharmacy Consult - Heparin 03/06/18 16:18 ONE TIME ONE Heparin Sodium (Porcine) 5,000 units 03/09/18 09:00 03/09/18 21:31 Heparin Sq SQ 5,000 units Q12HR [facility] Administration Bumetanide 25 mg/ IV Solution 100 mls @ 2 mls/hr 03/06/18 16:15 03/07/18 18: 19 IV Not Given Q24H [facility] Heparin Sodium (Porcine) 20,000 unit in 500 mls @ 30 mls/hr 03/06/18 17:05 14:00 Heparin Drip IV Infused .[id number] [facility] Titration Protocol 1,200 UNIT/HR Amiodarone HCl 900 mg/ Sodium 500 mls @ 16.66 mls/hr 03/07/18 00:31 03/08/18 12:41 Chloride IV Not Given .Q24H [facility] 0.5 MG/MIN Amiodarone HCl 450 mg/ Sodium 250 mls @ 33.33 mls/hr 03/06/18 18:30 03/07/18 02:11 Chloride IV 03/07/18 00:30 Infused .[id number] [facility] Infusion 1 MG/MIN Amiodarone HCl 150 mg/ Sodium 103 mls @ 618 mls/hr 03/06/18 18:20 03/06/18 19 :59 Chloride IV 03/06/18 18:29 Infused O ONE Infusion Heparin Sodium (Porcine) 20,000 unit in 500 mls @ 35 mls/hr 03/07/18 09:00 09:19 Heparin Drip IV Not Given .[id number] [facility] Protocol 1,400 UNIT/HR Sodium Chloride 1,000 mls @ 50 mls/hr 03/07/18 14:30 03/08/18 06:17 Normal Saline IV 03/08/18 00:30 50 mls/hr .Q20H [facility] Infusion Cefazolin Sodium 1 g/ Sodium 100 mls @ 200 mls/hr 03/11/18 01:00 03/11/18 09: 37 Chloride IV 03/11/18 09:29 Infused Q8HR [facility] Infusion Dopamine HCl/Dextrose 400 mg in 250 mls @ 7.073 mls/hr 03/12/18 09:46 Dopamine Drip IV .Q24H PRN Protocol 2 MCG/KG/MIN Sodium Chloride 1,000 mls @ 75 mls/hr 03/12/18 10:00 03/13/18 00:44 Normal Saline IV 03/12/18 23:19 Infused .[id number] [facility] Infusion Losartan Potassium 25 mg 03/07/18 11:00 03/08/18 12:50 Cozaar PO 25 mg DAILY [facility] Administration Magnesium Hydroxide 30 ml 03/07/18 12:50 Mom PO DAILY PRN Constipation Mirabegron 50 mg 03/07/18 09:00 03/08/18 08:38 Myrbetriq PO 50 mg DAILY [facility] Administration Morphine Sulfate 2 - 4 mg 03/07/18 14:20 Morphine Sulfate Inj IVP 03/08/18 14:19 Q2H PRN Pain Ondansetron HCl 4 mg 03/06/18 18:28 Zofran IVP Q6H PRN Nausea &/or vomiting Pharmacy Consult 1 each 03/11/18 15:34 Pharmacy Consult - Fall Risk 03/11/18 15:35 ONE TIME ONE Potassium Chloride 20 meq 03/08/18 21:23 03/08/18 22:08 K-Dur 20 Meq Tablet PO 03/08/18 21:24 20 meq O ONE Administration Potassium Chloride 20 meq 03/09/18 14:33 03/11/18 08:59 K-Dur 20 Meq Tablet PO 20 meq WB WILLAM Administration Tamsulosin HCl 0.4 mg 03/07/18 18:00 03/08/18 19:04 Flomax PO 0.4 mg 1800 WILL[facility] Administration - Constitutional no acute distress, obese, cooperative - Routine HEENT Exam Head: Present: normocephalic, atraumatic Eye: Present: EOMI, PERRL, conjunctivae pink ENT: Present: mucous membranes moist - Routine Neck Exam Present: trachea midline. Absent: JVD, carotid bruit - Routine Chest/Breast/Axilla Exam Chest wall: Present: tenderness (At site of ICD placement), pacemaker - Routine Respiratory Exam Present: decreased breath sounds, crackles Comments: On Bi-pap - Routine Cardiovascular Exam Present: RRR, S1, S2. Absent: no murmur, JVD - Routine Abdominal Exam Present: soft, distended Comments: Hypoactive BS - Routine Extremities Exam Present: edema (trace to RLE), pulses intact (weak), normal capillary refill, amputation (Left AKA) - Routine Skin Exam Present: intact, dry, warm. Absent: rash - Routine Neurological Exam Present: alert, oriented X3, moving all extremities - Routine Psychiatric Exam Present: normal affect, cooperative. Absent: good judgment - Urinary Catheter Management Urethral Cath placed during this visit: yes Urethral indwelling: Yes Insertion date: 03/06/18 Insertion time: 16:15 Results 03/13/18 04:10 03/13/18 04:10 CBC 03/13/18 Range/Units 04:10 WBC 18.3 H (4.5-11.0) T/MM3 RBC 3.89 L (4.50-5.90) M/MM3 Hgb 13.1 L (13.5-17.5) GM/DL Hct 39.2 L (41-53) % Plt Count 125 L (130-400) T/MM3 Neut # (Auto) Not performed Lymph # (Auto) Not performed [place] # (Auto) Not performed Eos # (Auto) Not performed Baso # (Auto) Not performed Comprehensive Metabolic Panel 03/12/18 03/13/18 Range/Units 09:57 04:10 Sodium 135 136 (134-144) MEQ/L Potassium 5.2 H 4.2 D (3.6-5) MEQ/L Chloride 96 L 98 (98-107) MEQ/L Carbon Dioxide 23 19 L (22-30) MEQ/L BUN 91.0 H* 100.0 H* (9-20) MG/DL Creatinine 3.5 H D 3.1 H D (0.8-1.5) mg/dL Glucose 157 H 138 H (75-110) MG/DL Calcium 8.8 8.6 (8.4-10.2) MG/DL Intake and Output 03/12/18 03/13/18 03/13/18 22:59 06:59 14:59 Intake Total 1280 / 1280 430 / 430 Output Total 225 / 225 425 / 425 Balance -225 / -225 855 / 855 430 / 430 Intake: IV 1000 / 1000 Ns 1,000 ml @ 75 mls/hr IV . 1000 / 1000 [id number] WILL[facility] Rx#:[id number] Oral 280 / 280 430 / 430 Output: Urine Amount (Catheter) 225 / 225 425 / 425 Other: Urine Appearance Clear Clear Urine Color Yellow Dark Urine Odor Normal Stool Color Brown Stool Consistency Soft Size of Bowel Movement Smear # Bowel Movements 1 Weight 100.3 kg Patient Weight 03/14/18 06:59 Weight 100.3 kg - Imaging and Cardiology EKG results: image reviewed - EKG Interpretation EKG: sinus rhythm EKG shows: tachycardia (LBBB, left axis deviation, occasional supraventricular premature complexes) Assessment and Plan - Assessment and Plan (1) Cardiomyopathy Current visit: Yes Status: Chronic (2) HTN (hypertension) Current visit: Yes Status: Chronic (3) CAD (coronary artery disease) Current visit: Yes Status: Chronic (4) CKD (chronic kidney disease) Current visit: Yes Status: Chronic (5) Acute renal failure superimposed on chronic kidney disease Current visit: Yes Status: Acute (6) Hyperlipidemia Current visit: Yes Status: Chronic (7) Acute dyspnea Current visit: No Status: Acute (8) Acute systolic CHF (congestive heart failure) Current visit: Yes Status: Acute (9) SVT (supraventricular tachycardia) Current visit: No Status: Acute (10) NSTEMI (non-ST elevated myocardial infarction) Current visit: Yes Status: Acute - Assessment and Plan 03/13/2018 NSTEMI (non-ST elevated myocardial infarction) - Troponin 1) 0.239, 2) 0.236, 3)0.320 4.)0.412 - Likely demand 2/2 respiratory failure/pulmonary edema VT/ SVT (supraventricular tachycardia) - Continue amiodarone 200 mg PO BID - EKG in am - Bi-V AICD in place - EKG: Sinus Tachycardia with LBBB, left axis deviation and supraventricular premature complexes - Monitor on tele Acute dyspnea - Presented from [facility] on 4l/NC - RCAT, continues to need bi-pap intermittently - CXR no pneumothorax. Mild pulmonary vascular congestion or edema. Acute systolic CHF (congestive heart failure) - Echo: EF 10-15%, severe MR/TR - CXR: mild pulmonary vascular congestion or edema - Cr 3.5 yesterday/3.1 today, BUN 91 yesterday/100 today - BNP 9080 - Will continue to hold diuresis - Pt admits heavy ETOH consumption 6-12 beers daily for many years prior to one year ago. - Will initiate NS 75 mL/hr x 10 hours - Will d/c dopamine gtt - Flores to monitor I&O - + FB today - Unable to start JAGDISH/ARB d/t hypotension/CKD Cardiomyopathy - Echo: EF 10-15%, severe MR/ TR - Continue medical therapy - Bi-V AICD in place HTN (hypertension) - Continue Coreg 6.25 mg BID CAD (coronary artery disease) - Heart cath on 03/07/18 revealed coronaries with nonobstructive disease - Continue ASA, BB and statin - Continue Plavix d/t to stent in RLE Acute Renal Failure - BUN 100, Cr 3.1 - Renal U/S indicated no hydronephrosis or renal mass CKD (chronic kidney disease) - Baseline Cr 1.6) - Will continue to hold diuresis - Potassium 4.2 - Mg 2.7 Hyperlipidemia - Continue Statin Ppx: SQ Heparin PO Ranitidine 03/12/2018 NSTEMI (non-ST elevated myocardial infarction) - Troponin 1) 0.239, 2) 0.236, 3)0.320 4.)0.412 - WBC trending up VT/ SVT (supraventricular tachycardia) - Continue amiodarone 200 mg PO BID - EKG in am - Bi-V AICD in place - EKG: Sinus Tachycardia, no acute changes - Monitor on tele Acute dyspnea - Presented from [facility] on 4l/NC - RCAT, on 4L per [place] this am - CXR no pneumothorax. Mild pulmonary vascular congestion or edema. Acute systolic CHF (congestive heart failure) - Echo: EF 10-15%, severe MR/TR - CXR: mild pulmonary vascular congestion or edema - Cr up to 3.5, BUN 91 - BNP 9080 - Will continue to hold diuresis - Pt admits heavy ETOH consumption 6-12 beers daily for many years prior to one year ago. - Will initiate NS 75 mL/hr x 10 hours - Start dopamine gtt to help perfuse kidneys Cardiomyopathy - Echo: EF 10-15%, severe MR/ TR HTN (hypertension) - Continue Coreg 6.25 mg BID CAD (coronary artery disease) - Heart cath on 03/07/18 revealed coronaries with nonobstructive disease - Continue ASA, BB and statin - Continue Plavix d/t to stent in RLE CKD (chronic kidney disease) - BUN increased to 91/SCr 3.5 (base line 1.6) - Will continue to hold diuresis - Potassium 5.2 - Renal U/S indicated no hydronephrosis or renal mass Hyperlipidemia - Continue Statin Ppx: SQ Heparin PO Ranitidine Hospital Course Summary Disclaimer: The visit summary below is not to be considered part of the above Progress Note. Hospital Course: Impression Leukocytosis Tachycardia Elevated LFTs Cardiomyopathy- with acute systolic failure Non-STEMI V. tach hyperlipidemia Hypertension Coronary artery disease Schizophrenia Depression History of CVA Plan Continued cardiology care as per Dr. Stahl, planning for pacemaker/ defibrillator placement later today. Patient doesn't meet nursing sepsis criteria. Given tachycardia, tachypnea and leukocytosis. All 3 of these may be multifactorial including severe cardiomyopathy and respiratory distress. Will obtain UA, Lactate and Blood cultures, Chest Xray to rule out infectious etiology Given respiratory distress will consult pulmonary, Dr Gibbs for evaluation and recommendations Monitor renal function- known CKD- Wood Router 2.2 (Baseline [place] Router 1.6) Continues on scheduled Bumex for diuresis- Monitor renal function Appreciate medical consultation. Will continue to follow patient. At time if discharge medical care is to return to PCP in Dr Hilda Self Case discussed with attending, Dr Serna <Jose C Stahl - Last Filed: 03/14/18 14:44> Exam Vital signs: Temperature 95.3 F L 03/14/18 13:06 Pulse Rate 88 03/14/18 13:06 Respiratory Rate 18 03/14/18 13:06 Blood Pressure 106/67 03/14/18 13:06 Pulse Oximetry 90 03/14/18 13:06 Inpatient Medications: Generic Name Dose Route Start Last Admin Trade Name Freq PRN Reason Stop Dose Admin Acetaminophen 325 - 650 mg 03/07/18 14:20 03/14/18 09:24 Tylenol PO 650 mg Q5H PRN Administration Pain Hydrocodone Bitart/Acetaminophen 1 - 2 tab 03/07/18 14:20 03/14/18 06:23 Volin 5/325 PO 1 tab Q5H PRN Administration Pain Al Hydroxide/Mg Hydroxide 30 ml 03/07/18 14:20 Maalox Plus PO Q3H PRN Indigestion Albuterol Sulfate 2.5 mg 03/12/18 02:04 03/12/18 02:06 Proventil Neb (0.083%) AEROSOL 2.5 mg Q2HR PRN Administration Albuterol/Ipratropium 3 ml 03/10/18 11:00 03/14/18 11:16 Duoneb AEROSOL 3 ml RTQID WILLAM Administration Amiodarone HCl 200 mg 03/08/18 21:25 03/14/18 09:28 Pacerone PO 200 mg BID WILLAM Administration Aspirin 81 mg 03/07/18 09:00 03/14/18 09:24 Ecotrin PO 81 mg DAILY [facility] Administration Atorvastatin Calcium 20 mg 03/08/18 21:00 03/13/18 21:21 Lipitor PO 20 mg HS WILLAM Administration Atropine Sulfate 0.5 mg 03/07/18 14:20 Atropine IVP Q5M PRN Bradycardia Bisacodyl 5 - 10 mg 03/07/18 14:20 03/14/18 09:24 Dulcolax PO 5 mg DAILY PRN Administration Constipation Bisacodyl 10 mg 03/07/18 14:20 Dulcolax RECTALLY DAILY PRN Constipation Budesonide/Formoterol Fumarate 2 puff 03/07/18 12:39 03/14/18 09:36 Symbicort Inhaler ORAL INH 2 puff BID [facility] Administration Carvedilol 3.125 mg 03/14/18 09:00 03/14/18 09:29 Coreg PO Not Given BIDWM [facility] Clopidogrel Bisulfate 75 mg 03/07/18 09:00 03/14/18 09:25 Plavix PO 75 mg DAILY [facility] Administration Docusate Sodium 100 mg 03/07/18 21:00 03/14/18 09:26 Colace PO 100 mg BID [facility] Administration Docusate Sodium 100 mg 03/07/18 12:50 Colace PO BID PRN Piperacillin Sod/Tazobactam 100 mls @ 200 mls/hr 03/14/18 08:15 03/14/18 09: 55 Sod 2.25 gm/ Sodium Chloride IV Infused Q8H [facility] Infusion Sodium Chloride 1,000 mls @ 125 mls/hr 03/14/18 08:15 03/14/18 11:38 Normal Saline IV 03/14/18 16:14 125 mls/hr .Q8H [facility] Infusion Levothyroxine Sodium 250 mcg 03/08/18 06:30 03/09/18 06:09 Synthroid PO 250 mcg SUSA@0630 [facility] Administration Levothyroxine Sodium 125 mcg 03/10/18 06:30 03/14/18 05:38 Synthroid PO 125 mcg MOTUWETHFR@0630 [facility] Administration Lorazepam 0.5 - 1 mg 03/07/18 14:20 03/12/18 14:43 Ativan PO 0.5 mg Q4H PRN Administration Anxiety Lorazepam 0.5 - 1 mg 03/07/18 14:20 03/12/18 03:30 Ativan Inj IVP 0.5 mg Q4H PRN Administration Anxiety Magnesium Hydroxide 30 ml 03/07/18 14:20 Mom PO DAILY PRN Constipation Metoclopramide HCl 5 - 10 mg 03/07/18 14:20 03/13/18 01:47 Reglan IVP 10 mg Q6H PRN Administration Nausea &/or vomiting Minocycline HCl 100 mg 03/11/18 21:00 03/14/18 09:25 Minocin PO 03/18/18 20:59 100 mg BID WILL[facility] Administration Morphine Sulfate 2 - 4 mg 03/07/18 14:20 Morphine Sulfate Inj IVP Q5M PRN Angina Nitroglycerin 0.4 mg 03/07/18 14:20 Nitrostat SL Q5M PRN Angina Ondansetron HCl 4 mg 03/07/18 14:20 Zofran IVP Q6H PRN Nausea &/or vomiting Promethazine HCl 12.5 - 25 mg 03/07/18 14:20 Phenergan Inj IVP Q6HR PRN Nausea &/or vomiting Ranitidine HCl 150 mg 03/07/18 18:00 03/13/18 18:03 Zantac PO 150 mg 1800 [facility] Administration Sodium Chloride 10 - 80 ml 03/09/18 14:34 03/12/18 10:56 Iv Flush IV 10 ml PRN PRN Administration Flushing Sodium Chloride 10 ml 03/10/18 20:02 Iv Flush IV PRN PRN Flushing Tramadol HCl 50 mg 03/06/18 18:28 03/14/18 14:39 Ultram PO 50 mg Q6H PRN Administration Pain Discontinued Medications Generic Name Dose Route Start Last Admin Trade Name Freq PRN Reason Stop Dose Admin Acetaminophen 650 mg 03/06/18 18:27 Tylenol PO Q5H PRN Pain Adenosine 6 mg 03/06/18 16:02 03/06/18 16:02 Adenocard IVP 03/06/18 16:03 6 mg O ONE Administration Adenosine 12 mg 03/06/18 16:06 03/06/18 16:06 Adenocard IVP 03/06/18 16:07 12 mg O ONE Administration Atorvastatin Calcium 20 mg 03/07/18 18:00 03/10/18 21:34 Lipitor PO Not Given 1800 [facility] Budesonide/Formoterol Fumarate 2 puff 03/07/18 21:00 Symbicort Inhaler ORAL INH BID [facility] Bumetanide 1 mg 03/06/18 16:09 03/06/18 18:08 Bumex 1 Mg/4 Ml Inj. IVP 03/06/18 16:10 1 mg O ONE Administration Bumetanide 1 mg 03/06/18 16:10 03/06/18 18:09 Bumex 1 Mg/4 Ml Inj. IVP 03/06/18 16:11 1 mg O ONE Administration Bumetanide 1 mg 03/06/18 16:11 03/06/18 16:11 Bumex 1 Mg/4 Ml Inj. IVP 03/06/18 16:12 1 mg O ONE Administration Bumetanide 2 mg 03/07/18 21:00 03/10/18 21:33 Bumex 1 Mg/4 Ml Inj. IVP Not Given QID [facility] Bumetanide 2 mg 03/08/18 15:00 03/09/18 04:06 Bumex 1 Mg/4 Ml Inj. IVP Not Given Q6HR [facility] Bumetanide 1 mg 03/09/18 09:00 03/10/18 08:16 Bumex 1 Mg/4 Ml Inj. IVP 1 mg BID [facility] Administration Bumetanide 1 mg 03/09/18 14:33 03/09/18 15:41 Bumex 1 Mg/4 Ml Inj. IVP 03/09/18 14:34 1 mg O ONE Administration Bumetanide 2 mg 03/10/18 16:07 03/10/18 20:15 Bumex 1 Mg Tab PO 2 mg [id number] [facility] Administration Carvedilol 3.125 mg 03/07/18 10:53 03/10/18 07:52 Coreg PO 3.125 mg BIDWM [facility] Administration Carvedilol 6.25 mg 03/10/18 16:37 03/13/18 09:29 Coreg PO 6.25 mg BIDWM [facility] Administration Device 1 each 03/07/18 12:57 03/07/18 12:59 Optichamber 03/07/18 12:58 1 each O ONE Administration Heparin Sodium (Beef Lung) 6,000 unit 03/06/18 17:04 03/06/18 17:22 Heparin Bolus IVP 03/06/18 17:05 6,000 unit O ONE Administration Heparin Sodium (Beef Lung) 5,000 unit 03/06/18 22:04 03/06/18 22:10 Heparin Bolus IVP 03/06/18 22:05 5,000 unit O ONE Administration Heparin Sodium (Beef Lung) 2,000 unit 03/07/18 09:00 03/07/18 09:21 Heparin Bolus IVP 03/07/18 09:01 2,000 unit O ONE Administration Heparin Sodium (Porcine) 1 each 03/06/18 16:17 Pharmacy Consult - Heparin 03/06/18 16:18 ONE TIME ONE Heparin Sodium (Porcine) 5,000 units 03/09/18 09:00 03/09/18 21:31 Heparin Sq SQ 5,000 units Q12HR [facility] Administration Heparin Sodium (Porcine) 5,000 units 03/11/18 09:00 03/14/18 09:26 Heparin Sq SQ 5,000 units Q12HR [facility] Administration Bumetanide 25 mg/ IV Solution 100 mls @ 2 mls/hr 03/06/18 16:15 03/07/18 18: 19 IV Not Given Q24H [facility] Heparin Sodium (Porcine) 20,000 unit in 500 mls @ 30 mls/hr 03/06/18 17:05 14:00 Heparin Drip IV Infused .[id number] [facility] Titration Protocol 1,200 UNIT/HR Amiodarone HCl 900 mg/ Sodium 500 mls @ 16.66 mls/hr 03/07/18 00:31 03/08/18 12:41 Chloride IV Not Given .Q24H [facility] 0.5 MG/MIN Amiodarone HCl 450 mg/ Sodium 250 mls @ 33.33 mls/hr 03/06/18 18:30 03/07/18 02:11 Chloride IV 03/07/18 00:30 Infused .[id number] [facility] Infusion 1 MG/MIN Amiodarone HCl 150 mg/ Sodium 103 mls @ 618 mls/hr 03/06/18 18:20 03/06/18 19 :59 Chloride IV 03/06/18 18:29 Infused O ONE Infusion Heparin Sodium (Porcine) 20,000 unit in 500 mls @ 35 mls/hr 03/07/18 09:00 09:19 Heparin Drip IV Not Given .[id number] [facility] Protocol 1,400 UNIT/HR Sodium Chloride 1,000 mls @ 50 mls/hr 03/07/18 14:30 03/08/18 06:17 Normal Saline IV 03/08/18 00:30 50 mls/hr .Q20H [facility] Infusion Cefazolin Sodium 1 g/ Sodium 100 mls @ 200 mls/hr 03/11/18 01:00 03/11/18 09: 37 Chloride IV 03/11/18 09:29 Infused Q8HR [facility] Infusion Dopamine HCl/Dextrose 400 mg in 250 mls @ 7.073 mls/hr 03/12/18 09:46 Dopamine Drip IV .Q24H PRN Protocol 2 MCG/KG/MIN Sodium Chloride 1,000 mls @ 75 mls/hr 03/12/18 10:00 03/13/18 00:44 Normal Saline IV 03/12/18 23:19 Infused .[id number] WILLAM Infusion Dopamine HCl/Dextrose 400 mg in 250 mls @ 7.073 mls/hr 03/12/18 11:15 16:06 Dopamine Drip IV Not Given .Q24H WILLAM Protocol 2 MCG/KG/MIN Vancomycin HCl 1,000 mg/ 250 mls @ 250 mls/hr 03/14/18 08:05 03/14/18 11:38 Sodium Chloride IV 03/14/18 08:06 Infused O ONE Infusion Losartan Potassium 25 mg 03/07/18 11:00 03/08/18 12:50 Cozaar PO 25 mg DAILY WILLAM Administration Magnesium Hydroxide 30 ml 03/07/18 12:50 Mom PO DAILY PRN Constipation Mirabegron 50 mg 03/07/18 09:00 03/08/18 08:38 Myrbetriq PO 50 mg DAILY WILLAM Administration Morphine Sulfate 2 - 4 mg 03/07/18 14:20 Morphine Sulfate Inj IVP 03/08/18 14:19 Q2H PRN Pain Ondansetron HCl 4 mg 03/06/18 18:28 Zofran IVP Q6H PRN Nausea &/or vomiting Pharmacy Consult 1 each 03/11/18 15:34 Pharmacy Consult - Fall Risk 03/11/18 15:35 ONE TIME ONE Potassium Chloride 20 meq 03/08/18 21:23 03/08/18 22:08 K-Dur 20 Meq Tablet PO 03/08/18 21:24 20 meq O ONE Administration Potassium Chloride 20 meq 03/09/18 14:33 03/11/18 08:59 K-Dur 20 Meq Tablet PO 20 meq WB WILLAM Administration Tamsulosin HCl 0.4 mg 03/07/18 18:00 03/08/18 19:04 Flomax PO 0.4 mg 1800 WILLAM Administration - Urinary Catheter Management Urethral Cath placed during this visit: no Results 03/14/18 06:43 03/14/18 06:43 CBC 03/14/18 Range/Units 06:43 WBC 17.4 H (4.5-11.0) T/MM3 RBC 3.98 L (4.50-5.90) M/MM3 Hgb 13.1 L (13.5-17.5) GM/DL Hct 39.7 L (41-53) % Plt Count 89 L (130-400) T/MM3 Neut # (Auto) Not performed Lymph # (Auto) Not performed [place] # (Auto) Not performed Eos # (Auto) Not performed Baso # (Auto) Not performed Comprehensive Metabolic Panel 03/14/18 Range/Units 06:43 Sodium 134 (134-144) MEQ/L Potassium 4.6 (3.6-5) MEQ/L Chloride 96 L (98-107) MEQ/L Carbon Dioxide 23 (22-30) MEQ/L BUN 118.0 H* (9-20) MG/DL Creatinine 3.8 H D (0.8-1.5) mg/dL Glucose 115 H (75-110) MG/DL Calcium 8.6 (8.4-10.2) MG/DL Intake and Output 03/13/18 03/14/18 03/14/18 22:59 06:59 14:59 Intake Total 330 / 330 300 / 300 502.083 / 502.083 Output Total 150 / 150 250 / 250 150 / 150 Balance 180 / 180 50 / 50 352.083 / 352.083 Intake: IV 502.083 / 502.083 Ns 1,000 ml @ 125 mls/hr IV . 152.083 / 152.083 Q8H WILLAM Rx#:[id number] Piperacillin/Tazobactam 2.25 gm 100 / 100 In Ns 100 ml @ 200 mls/hr IV Q8H WILLAM Rx#:[id number] Vancomycin 1,000 mg In NS 250ml 250 / 250 250 ml @ 250 mls/hr IV O ONE Rx#:[id number] Oral 330 / 330 300 / 300 Output: Urine 150 / 150 Urine Amount (Catheter) 150 / 150 100 / 100 150 / 150 Other: Urine Appearance Cloudy Urine Color Straw Light Dark Urine Odor Normal # Bowel Movements 0 Weight 100.4 kg Patient Weight 03/15/18 06:59 Weight 100.4 kg Assessment and Plan - Assessment and Plan (1) Cardiomyopathy Current visit: Yes Status: Chronic (2) HTN (hypertension) Current visit: Yes Status: Chronic (3) CAD (coronary artery disease) Current visit: Yes Status: Chronic (4) CKD (chronic kidney disease) Current visit: Yes Status: Chronic (5) Hyperlipidemia Current visit: Yes Status: Chronic (6) Acute dyspnea Current visit: No Status: Acute (7) Acute systolic CHF (congestive heart failure) Current visit: Yes Status: Acute (8) SVT (supraventricular tachycardia) Current visit: No Status: Acute (9) NSTEMI (non-ST elevated myocardial infarction) Current visit: Yes Status: Acute (10) Acute renal failure superimposed on chronic kidney disease Current visit: Yes Status: Acute - Attestation Attestation Narrative: 03/14/18 14:44 Recommendation After examining the patient I agree with the above assessment. I am involved in the formulation of the patient's plan of care. Hospital Course Summary Disclaimer: The visit summary below is not to be considered part of the above Progress Note.
--- NOTE | 2018-03-13 10:39 | Progress Note ---
- Date 03/13/18 Subjective: Mirza is a 57 yr old male with a known history of NSTEMI and SVT. He was admitted on 03/06 under the care of Dr. Stahl and had a successful cardioversion. He has known severe cardiomyopathy with an EF of 10% and is scheduled for pacemaker/defibrillator placement later today by Dr. Stahl. He has had persistent leukocytosis since admission. Given his continued elevated white count and tachycardia, he did meet sepsis criteria. The hospitalist services were consulted on 03/13/18 for medical evaluation and treatment. Morning labs are reviewed, white count 16.3, 82% neutrophils. Electrolytes are normal, BUN is 48 and creatinine of 2.2. ProBNP is elevated at 9080. He does continue to be tachycardic at approximately 112, and respiration rate 40, he is afebrile, blood pressure normal 114/73. He is in moderate amount of respiratory distress and currently on BiPAP. He is alert and does attempt to answer some questions however, has a significant amount of conversational dyspnea. He did does deny having any pain on examination. Existing comorbidities include the following- , severe cardiomyopathy, COPD, hypertension, schizophrenia, depression, cataracts, history of renal disease, history of CVA, former alcohol use, former tobacco dependence When seen by me this am, he is able to speak in complete sentences, he is difficult to understand at times. He is on 5 liters via [place]. He complains of pain in the ppm site. He denies feeling SOA to me. He denies CP. He denies N/V. He states his bowels are not moving. He states he does not walk because "they have not taught me yet". I am not sure the ROS is reliable. Objective Vital signs: Temperature 96.5 F L 03/13/18 07:51 Pulse Rate 93 03/13/18 08:14 Respiratory Rate 20 03/13/18 07:51 Blood Pressure 108/66 03/13/18 07:51 Pulse Oximetry 99 03/13/18 07:51 Height/Weight/BMI: Height 1.73 m Weight 100.3 kg Body Mass Index 35.0 Comments: Gen: alert. NAD Skin: warm and dry HEENT: NC/AT PERRL, EOMI, Sclera, lids and conjunctiva wnl, MMM, OP clear, poor dentition Neck: supple. No JVD, Carotids 2+ without bruits. Lungs: Diminished. No rales, rhonchi, wheezes. CV: regular. No murmur, rub or gallop Abd: soft. NT/ND, +hypoactive BS MS: No edema. Good strength and ROM. Neuro: No focal deficit Psy: flat affect Results - Labs CBC & Chem 7: 03/13/18 04:10 03/13/18 04:10 Assessment and Plan (1) Leukocytosis Current visit: Yes Status: Acute Assessment and Plan: Leukocytosis -Slight downward trend today -Urine unremarkable, CXR without infiltrate/PNA -No fevers -Mild left shift, no bands -Unsure etiology of his leukocytosis -Blood cx drawn and are pending -Repeat labs in am. Acute Dyspnea-Appears improved -Presented to [facility] on 4 liters via [place] -Up to 5 presently -Requiring BiPAP -Dr. Gibbs consulted Mild acidosis with +AG -Check ABG -May need Bipap more often than at [facility] -Check lactate VT/SVT S/P cardioversion -Bi V ICD placed on 03/10/18 -On amiodarone 200mg BID -On Beta clarita Elevated LFTs -Trending down Severe, Dilated, Non ischemic Cardiomyopathy -EF 10-15% with severe MR -Pt admits heavy ETOH consumption 6-12 beers daily for many years prior to one year ago. -On Coreg -Not on JAGDISH I or ARB likely due to low normal BP and acute on CKD -Bi V ICD placed Systolic Heart failure -BNP elevated over 9000 -Symptoms appear improved -CXR mild edema-Improved. Hyperlipidemia -On a statin Hypertension -Low normal at present on Coreg 6.25mg BID. NSTEMI -HC showing minimal CAD -Likely Type 2 -On ASA and plavix, statin, BBL Mild thrombocytopenia -This has been variable -Repeat in am, may have to dc heparin PAD -H/O stent to RLE - On plavix and ASA Stage III CKD -Creatinine slightly better this am. Still not at baseline (1.6). -Avoid nephrotoxic medications and contrast dye -Avoid hypotension -On low dose dopamine -Continue to hold diuresis for now -Urine output still marginal, continue to follow -Encourage po intake -Renal U/S unremarkable -Repeat labs in am including phos Hyperkalemia -resolved Schizophrenia -resides in [place], will go back there on discharge Depression History of CVA Ppx: SQ Heparin PO Ranitidine - Physician Narrative Narrative: Date: 03/13/18 Time: 1035 Hospital Course Summary Disclaimer: The visit summary below is not to be considered part of the above Progress Note. Hospital Course: Impression Leukocytosis Tachycardia Elevated LFTs Cardiomyopathy- with acute systolic failure Non-STEMI V. tach hyperlipidemia Hypertension Coronary artery disease Schizophrenia Depression History of CVA Plan Continued cardiology care as per Dr. Stahl, planning for pacemaker/ defibrillator placement later today. Patient doesn't meet nursing sepsis criteria. Given tachycardia, tachypnea and leukocytosis. All 3 of these may be multifactorial including severe cardiomyopathy and respiratory distress. Will obtain UA, Lactate and Blood cultures, Chest Xray to rule out infectious etiology Given respiratory distress will consult pulmonary, Dr Gibbs for evaluation and recommendations Monitor renal function- known CKD- Slab Worker 2.2 (Baseline Slab Worker 1.6) Continues on scheduled Bumex for diuresis- Monitor renal function Appreciate medical consultation. Will continue to follow patient. At time if discharge medical care is to return to PCP in Dr Hilda Self Case discussed with attending, Dr Serna
--- NOTE | 2018-03-13 13:06 | Pulmonology Progress Note ---
Subjective Principal diagnosis: SCHF, NSTEMI Interval history: using BIPAP IPAP 14, EPAP 5, rate 16, FIO2 30%. comfortable with no complaints Exam Vital signs: Temperature 95.4 F L 03/13/18 11:54 Pulse Rate 84 03/13/18 11:54 Respiratory Rate 20 03/13/18 11:54 Blood Pressure 116/69 03/13/18 11:54 Pulse Oximetry 99 03/13/18 11:54 Inpatient Medications: Generic Name Dose Route Start Last Admin Trade Name Freq PRN Reason Stop Dose Admin Acetaminophen 325 - 650 mg 03/07/18 14:20 03/12/18 08:54 Tylenol PO 650 mg Q5H PRN Administration Pain Hydrocodone Bitart/Acetaminophen 1 - 2 tab 03/07/18 14:20 03/13/18 09:28 [place] 5/325 PO 1 tab Q5H PRN Administration Pain Al Hydroxide/Mg Hydroxide 30 ml 03/07/18 14:20 Maalox Plus PO Q3H PRN Indigestion Albuterol Sulfate 2.5 mg 03/12/18 02:04 03/12/18 02:06 Proventil Neb (0.083%) AEROSOL 2.5 mg Q2HR PRN Administration Albuterol/Ipratropium 3 ml 03/10/18 11:00 03/13/18 11:21 Duoneb AEROSOL 3 ml RTQID WILLAM Administration Amiodarone HCl 200 mg 03/08/18 21:25 03/13/18 09:29 Pacerone PO 200 mg BID WILLAM Administration Aspirin 81 mg 03/07/18 09:00 03/13/18 09:29 Ecotrin PO 81 mg DAILY WILLAM Administration Atorvastatin Calcium 20 mg 03/08/18 21:00 03/12/18 20:34 Lipitor PO 20 mg HS WILLAM Administration Atropine Sulfate 0.5 mg 03/07/18 14:20 Atropine IVP Q5M PRN Bradycardia Bisacodyl 5 - 10 mg 03/07/18 14:20 Dulcolax PO DAILY PRN Constipation Bisacodyl 10 mg 03/07/18 14:20 Dulcolax RECTALLY DAILY PRN Constipation Budesonide/Formoterol Fumarate 2 puff 03/07/18 12:39 03/12/18 20:05 Symbicort Inhaler ORAL INH 2 puff BID WILLAM Administration Carvedilol 6.25 mg 03/10/18 16:37 03/13/18 09:29 Coreg PO 6.25 mg BIDWM WILLAM Administration Clopidogrel Bisulfate 75 mg 03/07/18 09:00 03/13/18 09:27 Plavix PO 75 mg DAILY WILLAM Administration Docusate Sodium 100 mg 03/07/18 21:00 03/13/18 09:29 Colace PO 100 mg BID WILLAM Administration Docusate Sodium 100 mg 03/07/18 12:50 Colace PO BID PRN Heparin Sodium (Porcine) 5,000 units 03/11/18 09:00 03/13/18 09:27 Heparin Sq SQ 5,000 units Q12HR WILLAM Administration Dopamine HCl/Dextrose 400 mg in 250 mls @ 7.073 mls/hr 03/12/18 11:15 11:37 Dopamine Drip IV 2 mcg/kg/min .Q24H WILLAM 7.073 mls/hr Protocol Administration 2 MCG/KG/MIN Levothyroxine Sodium 250 mcg 03/08/18 06:30 03/09/18 06:09 Synthroid PO 250 mcg SUSA@0630 WILLAM Administration Levothyroxine Sodium 125 mcg 03/10/18 06:30 03/13/18 05:43 Synthroid PO 125 mcg MOTUWETHFR@0630 [facility] Administration Lorazepam 0.5 - 1 mg 03/07/18 14:20 03/12/18 14:43 Ativan PO 0.5 mg Q4H PRN Administration Anxiety Lorazepam 0.5 - 1 mg 03/07/18 14:20 03/12/18 03:30 Ativan Inj IVP 0.5 mg Q4H PRN Administration Anxiety Magnesium Hydroxide 30 ml 03/07/18 14:20 Mom PO DAILY PRN Constipation Metoclopramide HCl 5 - 10 mg 03/07/18 14:20 03/13/18 01:47 Reglan IVP 10 mg Q6H PRN Administration Nausea &/or vomiting Minocycline HCl 100 mg 03/11/18 21:00 03/13/18 09:35 Minocin PO 03/18/18 20:59 100 mg BID WILLAM Administration Morphine Sulfate 2 - 4 mg 03/07/18 14:20 Morphine Sulfate Inj IVP Q5M PRN Angina Nitroglycerin 0.4 mg 04/20/18 14:20 Nitrostat SL Q5M PRN Angina Ondansetron HCl 4 mg 03/07/18 14:20 Zofran IVP Q6H PRN Nausea &/or vomiting Promethazine HCl 12.5 - 25 mg 03/07/18 14:20 Phenergan Inj IVP Q6HR PRN Nausea &/or vomiting Ranitidine HCl 150 mg 03/07/18 18:00 03/12/18 18:08 Zantac PO 150 mg 1800 WILLAM Administration Sodium Chloride 10 - 80 ml 03/09/18 14:34 03/12/18 10:56 Iv Flush IV 10 ml PRN PRN Administration [place]ushing Sodium Chloride 10 ml 03/10/18 20:02 Iv Flush IV PRN PRN [place] Tramadol HCl 50 mg 03/06/18 18:28 03/12/18 22:41 Ultram PO 50 mg Q6H PRN Administration Pain Discontinued Medications Generic Name Dose Route Start Last Admin Trade Name Freq PRN Reason Stop Dose Admin Acetaminophen 650 mg 03/06/18 18:27 Tylenol PO Q5H PRN Pain Adenosine 6 mg 03/06/18 16:02 03/06/18 16:02 Adenocard IVP 03/06/18 16:03 6 mg O ONE Administration Adenosine 12 mg 03/06/18 16:06 03/06/18 16:06 Adenocard IVP 03/06/18 16:07 12 mg O ONE Administration Atorvastatin Calcium 20 mg 03/07/18 18:00 03/10/18 21:34 Lipitor PO Not Given 1800 [facility] Budesonide/Formoterol Fumarate 2 puff 03/07/18 21:00 Symbicort Inhaler ORAL INH BID [facility] Bumetanide 1 mg 03/06/18 16:09 03/06/18 18:08 Bumex 1 Mg/4 Ml Inj. IVP 03/06/18 16:10 1 mg O ONE Administration Bumetanide 1 mg 03/06/18 16:10 03/06/18 18:09 Bumex 1 Mg/4 Ml Inj. IVP 03/06/18 16:11 1 mg O ONE Administration Bumetanide 1 mg 03/06/18 16:11 03/06/18 16:11 Bumex 1 Mg/4 Ml Inj. IVP 03/06/18 16:12 1 mg O ONE Administration Bumetanide 2 mg 03/07/18 21:00 03/10/18 21:33 Bumex 1 Mg/4 Ml Inj. IVP Not Given QID [facility] Bumetanide 2 mg 03/08/18 15:00 03/09/18 04:06 Bumex 1 Mg/4 Ml Inj. IVP Not Given Q6HR [facility] Bumetanide 1 mg 03/09/18 09:00 03/10/18 08:16 Bumex 1 Mg/4 Ml Inj. IVP 1 mg BID WILLAM Administration Bumetanide 1 mg 03/09/18 14:33 03/09/18 15:41 Bumex 1 Mg/4 Ml Inj. IVP 03/09/18 14:34 1 mg O ONE Administration Bumetanide 2 mg 03/10/18 16:07 03/10/18 20:15 Bumex 1 Mg Tab PO 2 mg [id number] WILLAM Administration Carvedilol 3.125 mg 03/07/18 10:53 03/10/18 07:52 Coreg PO 3.125 mg BIDWM [facility] Administration Device 1 each 03/07/18 12:57 03/07/18 12:59 Optichamber 03/07/18 12:58 1 each O ONE Administration Heparin Sodium (Beef Lung) 6,000 unit 03/06/18 17:04 03/06/18 17:22 Heparin Bolus IVP 03/06/18 17:05 6,000 unit O ONE Administration Heparin Sodium (Beef Lung) 5,000 unit 03/06/18 22:04 03/06/18 22:10 Heparin Bolus IVP 03/06/18 22:05 5,000 unit O ONE Administration Heparin Sodium (Beef Lung) 2,000 unit 03/07/18 09:00 03/07/18 09:21 Heparin Bolus IVP 03/07/18 09:01 2,000 unit O ONE Administration Heparin Sodium (Porcine) 1 each 03/06/18 16:17 Pharmacy Consult - Heparin 03/06/18 16:18 ONE TIME ONE Heparin Sodium (Porcine) 5,000 units 03/09/18 09:00 03/09/18 21:31 Heparin Sq SQ 5,000 units Q12HR [facility] Administration Bumetanide 25 mg/ IV Solution 100 mls @ 2 mls/hr 03/06/18 16:15 03/07/18 18: 19 IV Not Given Q24H WILLAM Heparin Sodium (Porcine) 20,000 unit in 500 mls @ 30 mls/hr 03/06/18 17:05 14:00 Heparin Drip IV Infused .[id number] WILLAM Titration Protocol 1,200 UNIT/HR Amiodarone HCl 900 mg/ Sodium 500 mls @ 16.66 mls/hr 03/07/18 00:31 03/08/18 12:41 Chloride IV Not Given .Q24H WILLAM 0.5 MG/MIN Amiodarone HCl 450 mg/ Sodium 250 mls @ 33.33 mls/hr 03/06/18 18:30 03/07/18 02:11 Chloride IV 03/07/18 00:30 Infused .[id number] WILLAM Infusion 1 MG/MIN Amiodarone HCl 150 mg/ Sodium 103 mls @ 618 mls/hr 03/06/18 18:20 03/06/18 19 :59 Chloride IV 03/06/18 18:29 Infused O ONE Infusion Heparin Sodium (Porcine) 20,000 unit in 500 mls @ 35 mls/hr 03/07/18 09:00 09:19 Heparin Drip IV Not Given .[id number] WILLAM Protocol 1,400 UNIT/HR Sodium Chloride 1,000 mls @ 50 mls/hr 03/07/18 14:30 03/08/18 06:17 Normal Saline IV 03/08/18 00:30 50 mls/hr .Q20H WILLAM Infusion Cefazolin Sodium 1 g/ Sodium 100 mls @ 200 mls/hr 03/11/18 01:00 03/11/18 09: 37 Chloride IV 03/11/18 09:29 Infused Q8HR WILLAM Infusion Dopamine HCl/Dextrose 400 mg in 250 mls @ 7.073 mls/hr 03/12/18 09:46 Dopamine Drip IV .Q24H PRN Protocol 2 MCG/KG/MIN Sodium Chloride 1,000 mls @ 75 mls/hr 03/12/18 10:00 03/13/18 00:44 Normal Saline IV 03/12/18 23:19 Infused .[id number] WILLAM Infusion Losartan Potassium 25 mg 03/07/18 11:00 03/08/18 12:50 Cozaar PO 25 mg DAILY WILLAM Administration Magnesium Hydroxide 30 ml 03/07/18 12:50 Mom PO DAILY PRN Constipation Mirabegron 50 mg 03/07/18 09:00 03/08/18 08:38 Myrbetriq PO 50 mg DAILY WILLAM Administration Morphine Sulfate 2 - 4 mg 03/07/18 14:20 Morphine Sulfate Inj IVP 03/08/18 14:19 Q2H PRN Pain Ondansetron HCl 4 mg 03/06/18 18:28 Zofran IVP Q6H PRN Nausea &/or vomiting Pharmacy Consult 1 each 03/11/18 15:34 Pharmacy Consult - Fall Risk 03/11/18 15:35 ONE TIME ONE Potassium Chloride 20 meq 03/08/18 21:23 03/08/18 22:08 K-Dur 20 Meq Tablet PO 03/08/18 21:24 20 meq O ONE Administration Potassium Chloride 20 meq 03/09/18 14:33 03/11/18 08:59 K-Dur 20 Meq Tablet PO 20 meq WB WILLAM Administration Tamsulosin HCl 0.4 mg 03/07/18 18:00 03/08/18 19:04 Flomax PO 0.4 mg 1800 WILLAM Administration - Constitutional no acute distress - Routine HEENT Exam Head: Present: normocephalic, atraumatic Eye: Present: EOMI ENT: Present: mucous membranes moist - Routine Neck Exam Present: supple - Routine Respiratory Exam Present: decreased breath sounds, CTA bilaterally - Routine Cardiovascular Exam Present: RRR - Routine Abdominal Exam Present: soft - Urinary Catheter Management Urethral Cath placed during this visit: yes Urethral indwelling: Yes Insertion date: 03/06/18 Insertion time: 16:15 Results - Laboratory Findings Laboratory: Laboratory Results - last 48 hr 03/12/18 03/12/18 03/12/18 04:22 04:22 04:22 WBC 19.1 H Cancelled Corrected WBC Aqu[employer]orer Cancelled RBC 3.94 L Cancelled Hgb 12.9 L Cancelled Hct 39.4 L Cancelled MCV 100.0 Cancelled MCH 32.7 Cancelled MCHC 32.7 Cancelled RDW Std Deviation 56.5 H Cancelled Plt Count 146 Cancelled MPV 11.3 Cancelled Immature Gran % (Auto) Neut % (Auto) Lymph % (Auto) [place] % (Auto) Eos % (Auto) Baso % (Auto) Neut # (Auto) Lymph # (Auto) [place] # (Auto) Eos # (Auto) Baso # (Auto) Abs Immat Gran (auto) Neutrophils % (Manual) 78.0 H Cancelled Band Neutrophils % 4.0 Cancelled Lymphocytes % (Manual) 11.0 L Cancelled Reactive Lymphs % [employer] Cancelled Monocytes % (Manual) 7.0 Cancelled Eosinophils % (Manual) [employer]orer Cancelled Basophils % (Manual) Aqu[employer]orer Cancelled Metamyelocytes % [employer]orer Cancelled Myelocytes % [employer]orer Cancelled Promyelocytes % [employer]orer Cancelled Blast Cells % [employer]orer Cancelled Neutrophils # (Manual) 14.9 H Cancelled Band Neutrophils # 0.8 Cancelled Lymphocytes # (Manual) 2.1 Cancelled Abs React Lymphs (Man) Aqu[employer]orer Cancelled Monocytes # (Manual) 1.3 H Cancelled Eosinophils # (Manual) Aqu[employer]orer Cancelled Basophils # (Manual) Aquatic [employer]orer Cancelled Metamyelocytes # Aquatic [employer] Laborer Cancelled Myelocytes # [employer]orer Cancelled Promyelocytes # Aqu[employer]orer Cancelled Plasma Cell # (Manual) Aquatic [employer]orer Cancelled Nucleated RBCs [employer] Cancelled Hypersegmented Neuts [employer] Cancelled Hyposegmented Neuts [employer]orer Cancelled Hypogranular Neuts [employer]orer Cancelled Prolymphocytes [employer]orer Cancelled Blast Cells # Aquatic [employer] Laborer Cancelled Plasma Cells [employer]orer Cancelled Smudge Cells [employer]orer Cancelled Toxic Granulation [employer]orer Cancelled Toxic Vacuolation [employer]orer Cancelled Dohle Bodies [employer] Cancelled Giselle Rods [employer] Cancelled Clumped Platelets [employer]orer Cancelled Giant Platelets [employer] Cancelled Dimorphic RBCs [employer] Cancelled Polychromasia [employer] Cancelled Hypochromasia [employer]orer Cancelled Poikilocytosis [employer]orer Cancelled Basophilic Stippling [employer]atic [employer]orer Cancelled Anisocytosis 1+ Cancelled Microcytosis [employer]orer Cancelled Macrocytosis [employer]orer Cancelled Spherocytes [employer]orer Cancelled Pappenheimer Bodies [employer]orer Cancelled Sickle Cells [employer]orer Cancelled Target Cells [employer]orer Cancelled Tear Drop Cells [employer]orer Cancelled Ovalocytes [employer]orer Cancelled Stomatocytes [employer] Cancelled Helmet Cells [employer] Cancelled [place] Bodies Aquatic [employer]orer Cancelled [place] Rings Aquatic [employer]orer Cancelled Sylvie Cells [employer] Cancelled Crenated Cell [employer]orer Cancelled Acanthocytes (Spur) [employer]orer Cancelled Rouleaux [employer]orer Cancelled Schistocytes [employer]orer Cancelled RBC Morph Comment Abnormal Cancelled Turbidity < 20 Sodium 136 Potassium 5.2 H D Chloride 95 L Carbon Dioxide 24 Anion Gap 17 H BUN 84.0 H* Creatinine 3.3 H D GFR Calculation 19 BUN/Creatinine Ratio 26 Glucose 124 H Calculated Osmolality 289 H Calcium 8.7 Phosphorus Magnesium 2.5 H D Icterus Index < 2 Specimen Hemolysis < 15 03/12/18 03/13/18 03/13/18 09:57 04:10 04:10 WBC 18.3 H Corrected WBC RBC 3.89 L Hgb 13.1 L Hct 39.2 L MCV 100.8 H MCH 33.7 MCHC 33.4 RDW Std Deviation 58.7 H Plt Count 125 L MPV 11.5 Immature Gran % (Auto) Not performed Neut % (Auto) Not performed Lymph % (Auto) Not performed [place] % (Auto) Not performed Eos % (Auto) Not performed Baso % (Auto) Not performed Neut # (Auto) Not performed Lymph # (Auto) Not performed [place] # (Auto) Not performed Eos # (Auto) Not performed Baso # (Auto) Not performed Abs Immat Gran (auto) Not performed Neutrophils % (Manual) 80.0 H Band Neutrophils % 4.0 Lymphocytes % (Manual) 8.0 L Reactive Lymphs % Monocytes % (Manual) 8.0 Eosinophils % (Manual) Basophils % (Manual) Metamyelocytes % Myelocytes % Promyelocytes % Blast Cells % Neutrophils # (Manual) 14.6 H Band Neutrophils # 0.7 Lymphocytes # (Manual) 1.5 Abs React Lymphs (Man) Monocytes # (Manual) 1.5 H Eosinophils # (Manual) Basophils # (Manual) Metamyelocytes # Myelocytes # Promyelocytes # Plasma Cell # (Manual) Nucleated RBCs Hypersegmented Neuts Hyposegmented Neuts Hypogranular Neuts Prolymphocytes Blast Cells # Plasma Cells Smudge Cells Toxic Granulation Toxic Vacuolation Dohle Bodies Giselle Rods Clumped Platelets Giant Platelets Dimorphic RBCs Polychromasia Hypochromasia Poikilocytosis 2+ Basophilic Stippling Anisocytosis 2+ Microcytosis Macrocytosis Spherocytes Pappenheimer Bodies Sickle Cells Target Cells Tear Drop Cells Ovalocytes Stomatocytes Helmet Cells [place] Bodies [place] Rings [place] Cells Crenated Cell Acanthocytes (Spur) Rouleaux Schistocytes 1+ RBC Morph Comment Abnormal Turbidity < 20 < 20 Sodium 135 136 Potassium 5.2 H 4.2 D Chloride 96 L 98 Carbon Dioxide 23 19 L Anion Gap 16 H 19 H BUN 91.0 H* 100.0 H* Creatinine 3.5 H D 3.1 H D GFR Calculation 18 21 BUN/Creatinine Ratio 26 32 H Glucose 157 H 138 H Calculated Osmolality 291 H 295 H Calcium 8.8 8.6 Phosphorus 5.9 H Magnesium 2.7 H Icterus Index < 2 < 2 Specimen Hemolysis 31 H 16 - Diagnostic Findings Chest x-ray: report reviewed, image reviewed Assessment and Plan (1) Acute respiratory failure with hypoxemia Status: Acute Assessment and plan: He seems to be improved on hospital bipap 14/, rate 12, Fio2 30%. He will use this for respiratory distress likely secondary to pulmonary edema. Hopefully once improved we can transition back to CPAP (has at home). 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
[2018-03-13] MEDS: TRAMADOL 50 MG TABLET PO PRN (14:30)
[2018-03-13] MEDS: DOPamine PREMIX 400 MG/250 ML BAG IV SCH (16:06)
[2018-03-13] MEDS: RANITIDINE 150 MG TABLET PO SCH (18:03)
[2018-03-13] MEDS: ATORVASTATIN 20 MG TABLET PO SCH (21:21)
[2018-03-14] MEDS: LEVOTHYROXINE 125 MCG TABLET PO SCH (05:38)
[2018-03-14] MEDS: HYDROCODONE/APAP 5mg/325mg TABLET PO PRN (06:23)
[2018-03-14] MEDS: ALBUTEROL/IPRATROPIUM 2.5mg-0.5mg/3ml NEB AEROSOL SCH ×4 (07:43→18:50)
[2018-03-14] MEDS ORDERED: NS 1,000 ML IV SCH ×2 (08:15→15:06)
--- NOTE | 2018-03-14 08:26 | XRay Report ---
INDICATION: Hypoxia PROCEDURE: CHEST 2-VIEWS UPRIGHT (PA & LAT) Encounter: Initial COMPARISON: March 13, 2018 FINDINGS: Stable hazy airspace disease in the right lung base. No new or worsening airspace consolidation. No pneumothorax or significant pleural effusion. Cardiac silhouette is moderately enlarged but unchanged. Mediastinal contours are stable. Left dual lead pacemaker defibrillator. Overlying monitoring leads. Pulmonary vascularity appears normal. Impression: Resolved pulmonary edema. Stable right lower lobe airspace disease. .
--- NOTE | 2018-03-14 09:08 | Pulmonology Progress Note ---
Subjective Principal diagnosis: SCHF, NSTEMI Interval history: Pt in bed, does complain of some SOB, on the bipap. Family at bedside. Exam Vital signs: Temperature 98.2 F 03/14/18 07:33 Pulse Rate 86 03/14/18 07:33 Respiratory Rate 17 03/14/18 07:43 Blood Pressure 143/62 H 03/14/18 07:33 Pulse Oximetry 95 03/14/18 07:43 Inpatient Medications: Generic Name Dose Route Start Last Admin Trade Name Freq PRN Reason Stop Dose Admin Acetaminophen 325 - 650 mg 03/07/18 14:20 03/12/18 08:54 Tylenol PO 650 mg Q5H PRN Administration Pain Hydrocodone Bitart/Acetaminophen 1 - 2 tab 03/07/18 14:20 03/14/18 06:23 [place] 5/325 PO 1 tab Q5H PRN Administration Pain Al Hydroxide/Mg Hydroxide 30 ml 03/07/18 14:20 Maalox Plus PO Q3H PRN Indigestion Albuterol Sulfate 2.5 mg 03/12/18 02:04 03/12/18 02:06 Proventil Neb (0.083%) AEROSOL 2.5 mg Q2HR PRN Administration Albuterol/Ipratropium 3 ml 03/10/18 11:00 03/14/18 07:43 Duoneb AEROSOL 3 ml RTQID WILLAM Administration Amiodarone HCl 200 mg 03/08/18 21:25 03/13/18 21:21 Pacerone PO 200 mg BID WILLAM Administration Aspirin 81 mg 03/07/18 09:00 03/13/18 09:29 Ecotrin PO 81 mg DAILY WILLAM Administration Atorvastatin Calcium 20 mg 03/08/18 21:00 03/13/18 21:21 Lipitor PO 20 mg HS WILLAM Administration Atropine Sulfate 0.5 mg 03/07/18 14:20 Atropine IVP Q5M PRN Bradycardia Bisacodyl 5 - 10 mg 03/07/18 14:20 Dulcolax PO DAILY PRN Constipation Bisacodyl 10 mg 03/07/18 14:20 Dulcolax RECTALLY DAILY PRN Constipation Budesonide/Formoterol Fumarate 2 puff 03/07/18 12:39 03/13/18 19:20 Symbicort Inhaler ORAL INH Not Given BID [facility] Carvedilol 3.125 mg 03/14/18 09:00 Coreg PO BIDWM [facility] Clopidogrel Bisulfate 75 mg 03/07/18 09:00 03/13/18 09:27 Plavix PO 75 mg DAILY [facility] Administration Docusate Sodium 100 mg 03/07/18 21:00 03/13/18 21:21 Colace PO 100 mg BID [facility] Administration Docusate Sodium 100 mg 03/07/18 12:50 Colace PO BID PRN Heparin Sodium (Porcine) 5,000 units 03/11/18 09:00 03/13/18 21:26 Heparin Sq SQ 5,000 units Q12HR [facility] Administration Piperacillin Sod/Tazobactam 100 mls @ 200 mls/hr 03/14/18 08:15 Sod 2.25 gm/ Sodium Chloride IV Q8H [facility] Sodium Chloride 1,000 mls @ 125 mls/hr 03/14/18 08:15 Normal Saline IV 03/14/18 16:14 .Q8H [facility] Levothyroxine Sodium 250 mcg 03/08/18 06:30 03/09/18 06:09 Synthroid PO 250 mcg SUSA@0630 [facility] Administration Levothyroxine Sodium 125 mcg 03/10/18 06:30 03/14/18 05:38 Synthroid PO 125 mcg MOTUWETHFR@0630 [facility] Administration Lorazepam 0.5 - 1 mg 03/07/18 14:20 03/12/18 14:43 Ativan PO 0.5 mg Q4H PRN Administration Anxiety Lorazepam 0.5 - 1 mg 03/07/18 14:20 03/12/18 03:30 Ativan Inj IVP 0.5 mg Q4H PRN Administration Anxiety Magnesium Hydroxide 30 ml 03/07/18 14:20 Mom PO DAILY PRN Constipation Metoclopramide HCl 5 - 10 mg 03/07/18 14:20 03/13/18 01:47 Reglan IVP 10 mg Q6H PRN Administration Nausea &/or vomiting Minocycline HCl 100 mg 03/11/18 21:00 03/13/18 21:22 Minocin PO 03/18/18 20:59 100 mg BID [facility] Administration Morphine Sulfate 2 - 4 mg 03/07/18 14:20 Morphine Sulfate Inj IVP Q5M PRN Angina Nitroglycerin 0.4 mg 03/07/18 14:20 Nitrostat SL Q5M PRN Angina Ondansetron HCl 4 mg 03/07/18 14:20 Zofran IVP Q6H PRN Nausea &/or vomiting Promethazine HCl 12.5 - 25 mg 03/07/18 14:20 Phenergan Inj IVP Q6HR PRN Nausea &/or vomiting Ranitidine HCl 150 mg 03/07/18 18:00 03/13/18 18:03 Zantac PO 150 mg 1800 WILLAM Administration Sodium Chloride 10 - 80 ml 03/09/18 14:34 03/12/18 10:56 Iv Flush IV 10 ml PRN PRN Administration Flushing Sodium Chloride 10 ml 03/10/18 20:02 Iv Flush IV PRN PRN Flushing Tramadol HCl 50 mg 03/06/18 18:28 03/13/18 14:30 Ultram PO 50 mg Q6H PRN Administration Pain Discontinued Medications Generic Name Dose Route Start Last Admin Trade Name Freq PRN Reason Stop Dose Admin Acetaminophen 650 mg 03/06/18 18:27 Tylenol PO Q5H PRN Pain Adenosine 6 mg 03/06/18 16:02 03/06/18 16:02 Adenocard IVP 03/06/18 16:03 6 mg O ONE Administration Adenosine 12 mg 03/06/18 16:06 03/06/18 16:06 Adenocard IVP 03/06/18 16:07 12 mg O ONE Administration Atorvastatin Calcium 20 mg 03/07/18 18:00 03/10/18 21:34 Lipitor PO Not Given 1800 [facility] Budesonide/Formoterol Fumarate 2 puff 03/07/18 21:00 Symbicort Inhaler ORAL INH BID [facility] Bumetanide 1 mg 03/06/18 16:09 03/06/18 18:08 Bumex 1 Mg/4 Ml Inj. IVP 03/06/18 16:10 1 mg O ONE Administration Bumetanide 1 mg 03/06/18 16:10 03/06/18 18:09 Bumex 1 Mg/4 Ml Inj. IVP 03/06/18 16:11 1 mg O ONE Administration Bumetanide 1 mg 03/06/18 16:11 03/06/18 16:11 Bumex 1 Mg/4 Ml Inj. IVP 03/06/18 16:12 1 mg O ONE Administration Bumetanide 2 mg 03/07/18 21:00 03/10/18 21:33 Bumex 1 Mg/4 Ml Inj. IVP Not Given QID [facility] Bumetanide 2 mg 03/08/18 15:00 03/09/18 04:06 Bumex 1 Mg/4 Ml Inj. IVP Not Given Q6HR [facility] Bumetanide 1 mg 03/09/18 09:00 03/10/18 08:16 Bumex 1 Mg/4 Ml Inj. IVP 1 mg BID WILLAM Administration Bumetanide 1 mg 03/09/18 14:33 03/09/18 15:41 Bumex 1 Mg/4 Ml Inj. IVP 03/09/18 14:34 1 mg O ONE Administration Bumetanide 2 mg 03/10/18 16:07 03/10/18 20:15 Bumex 1 Mg Tab PO 2 mg [id number] WILLAM Administration Carvedilol 3.125 mg 03/07/18 10:53 03/10/18 07:52 Coreg PO 3.125 mg BIDWM WILLAM Administration Carvedilol 6.25 mg 03/10/18 16:37 03/13/18 09:29 Coreg PO 6.25 mg BIDWM WILLAM Administration Device 1 each 03/07/18 12:57 03/07/18 12:59 Optichamber 03/07/18 12:58 1 each O ONE Administration Heparin Sodium (Beef Lung) 6,000 unit 03/06/18 17:04 03/06/18 17:22 Heparin Bolus IVP 03/06/18 17:05 6,000 unit O ONE Administration Heparin Sodium (Beef Lung) 5,000 unit 03/06/18 22:04 03/06/18 22:10 Heparin Bolus IVP 03/06/18 22:05 5,000 unit O ONE Administration Heparin Sodium (Beef Lung) 2,000 unit 03/07/18 09:00 03/07/18 09:21 Heparin Bolus IVP 03/07/18 09:01 2,000 unit O ONE Administration Heparin Sodium (Porcine) 1 each 03/06/18 16:17 Pharmacy Consult - Heparin 03/06/18 16:18 ONE TIME ONE Heparin Sodium (Porcine) 5,000 units 03/09/18 09:00 03/09/18 21:31 Heparin Sq SQ 5,000 units Q12HR WILLAM Administration Bumetanide 25 mg/ IV Solution 100 mls @ 2 mls/hr 03/06/18 16:15 03/07/18 18: 19 IV Not Given Q24H WILLAM Heparin Sodium (Porcine) 20,000 unit in 500 mls @ 30 mls/hr 03/06/18 17:05 14:00 Heparin Drip IV Infused .[id number] WILLAM Titration Protocol 1,200 UNIT/HR Amiodarone HCl 900 mg/ Sodium 500 mls @ 16.66 mls/hr 03/07/18 00:31 03/08/18 12:41 Chloride IV Not Given .Q24H WILLAM 0.5 MG/MIN Amiodarone HCl 450 mg/ Sodium 250 mls @ 33.33 mls/hr 03/06/18 18:30 03/07/18 02:11 Chloride IV 03/07/18 00:30 Infused .[id number] WILLAM Infusion 1 MG/MIN Amiodarone HCl 150 mg/ Sodium 103 mls @ 618 mls/hr 03/06/18 18:20 03/06/18 19 :59 Chloride IV 03/06/18 18:29 Infused O ONE Infusion Heparin Sodium (Porcine) 20,000 unit in 500 mls @ 35 mls/hr 03/07/18 09:00 09:19 Heparin Drip IV Not Given .[id number] WILLAM Protocol 1,400 UNIT/HR Sodium Chloride 1,000 mls @ 50 mls/hr 03/07/18 14:30 03/08/18 06:17 Normal Saline IV 03/08/18 00:30 50 mls/hr .Q20H WILLAM Infusion Cefazolin Sodium 1 g/ Sodium 100 mls @ 200 mls/hr 03/11/18 01:00 03/11/18 09: 37 Chloride IV 03/11/18 09:29 Infused Q8HR WILLAM Infusion Dopamine HCl/Dextrose 400 mg in 250 mls @ 7.073 mls/hr 03/12/18 09:46 Dopamine Drip IV .Q24H PRN Protocol 2 MCG/KG/MIN Sodium Chloride 1,000 mls @ 75 mls/hr 03/12/18 10:00 03/13/18 00:44 Normal Saline IV 03/12/18 23:19 Infused .[id number] WILLAM Infusion Dopamine HCl/Dextrose 400 mg in 250 mls @ 7.073 mls/hr 03/12/18 11:15 16:06 Dopamine Drip IV Not Given .Q24H WILLAM Protocol 2 MCG/KG/MIN Vancomycin HCl 1,000 mg/ 250 mls @ 250 mls/hr 03/14/18 08:05 Sodium Chloride IV 03/14/18 08:06 O ONE Losartan Potassium 25 mg 03/07/18 11:00 03/08/18 12:50 Cozaar PO 25 mg DAILY WILLAM Administration Magnesium Hydroxide 30 ml 03/07/18 12:50 Mom PO DAILY PRN Constipation Mirabegron 50 mg 03/07/18 09:00 03/08/18 08:38 Myrbetriq PO 50 mg DAILY WILLAM Administration Morphine Sulfate 2 - 4 mg 03/07/18 14:20 Morphine Sulfate Inj IVP 03/08/18 14:19 Q2H PRN Pain Ondansetron HCl 4 mg 03/06/18 18:28 Zofran IVP Q6H PRN Nausea &/or vomiting Pharmacy Consult 1 each 03/11/18 15:34 Pharmacy Consult - Fall Risk [facility] 03/11/18 15:35 ONE TIME ONE Potassium Chloride 20 meq 03/08/18 21:23 03/08/18 22:08 K-Dur 20 Meq Tablet PO 03/08/18 21:24 20 meq O ONE Administration Potassium Chloride 20 meq 03/09/18 14:33 03/11/18 08:59 K-Dur 20 Meq Tablet PO 20 meq WB WILLAM Administration Tamsulosin HCl 0.4 mg 03/07/18 18:00 03/08/18 19:04 Flomax PO 0.4 mg 1800 WILLAM Administration - Constitutional mild distress, obese, cooperative - Routine HEENT Exam Head: Present: normocephalic, atraumatic Eye: Present: EOMI, PERRL ENT: Present: mucous membranes moist - Routine Neck Exam Present: supple, full ROM, trachea midline - Routine Respiratory Exam Present: decreased breath sounds. Absent: patient mechanically ventilated - Routine Cardiovascular Exam Present: RRR, S1, S2, no murmur - Routine Abdominal Exam Present: soft, normoactive bowel sounds - Routine Extremities Exam Present: no edema, non tender, full ROM. Absent: cyanosis, clubbing - Routine Back/Spine/Pelvis Exam Back/Spine: Present: full ROM - Routine Skin Exam Present: intact, dry - Routine Neurological Exam Present: alert, CN II-XII intact, moving all extremities - Routine Psychiatric Exam Present: normal affect, cooperative - Urinary Catheter Management Urethral Cath placed during this visit: yes Urethral indwelling: Yes Insertion date: 03/06/18 Insertion time: 16:15 Results - Laboratory Findings Laboratory: Laboratory Results - last 48 hr 03/12/18 03/12/18 03/12/18 04:22 04:22 09:57 WBC 19.1 H Cancelled Corrected WBC E Commerce Director Cancelled RBC 3.94 L Cancelled Hgb 12.9 L Cancelled Hct 39.4 L Cancelled MCV 100.0 Cancelled MCH 32.7 Cancelled MCHC 32.7 Cancelled RDW Std Deviation 56.5 H Cancelled Plt Count 146 Cancelled MPV 11.3 Cancelled Immature Gran % (Auto) Neut % (Auto) Lymph % (Auto) Elk % (Auto) Eos % (Auto) Baso % (Auto) Neut # (Auto) Lymph # (Auto) Elk # (Auto) Eos # (Auto) Baso # (Auto) Abs Immat Gran (auto) Neutrophils % (Manual) 78.0 H Cancelled Band Neutrophils % 4.0 Cancelled Lymphocytes % (Manual) 11.0 L Cancelled Reactive Lymphs % E Commerce Director Cancelled Monocytes % (Manual) 7.0 Cancelled Eosinophils % (Manual) E Commerce Director Cancelled Basophils % (Manual) E Commerce Director Cancelled Metamyelocytes % E Commerce Director Cancelled Myelocytes % E Commerce Director Cancelled Promyelocytes % E Commerce Director Cancelled Blast Cells % E Commerce Director Cancelled Neutrophils # (Manual) 14.9 H Cancelled Band Neutrophils # 0.8 Cancelled Lymphocytes # (Manual) 2.1 Cancelled Abs React Lymphs (Man) E Commerce Director Cancelled Monocytes # (Manual) 1.3 H Cancelled Eosinophils # (Manual) E Commerce Director Cancelled Basophils # (Manual) E Commerce Director Cancelled Metamyelocytes # E Commerce Director Cancelled Myelocytes # E Commerce Director Cancelled Promyelocytes # E Commerce Director Cancelled Plasma Cell # (Manual) E Commerce Director Cancelled Nucleated RBCs E Commerce Director Cancelled Hypersegmented Neuts E Commerce Director Cancelled Hyposegmented Neuts E Commerce Director Cancelled Hypogranular Neuts E Commerce Director Cancelled Prolymphocytes E Commerce Director Cancelled Blast Cells # E Commerce Director Cancelled Plasma Cells E Commerce Director Cancelled Smudge Cells E Commerce Director Cancelled Toxic Granulation E Commerce Director Cancelled Toxic Vacuolation E Commerce Director Cancelled Dohle Bodies E Commerce Director Cancelled Giselle Rods E Commerce Director Cancelled Clumped Platelets E Commerce Director Cancelled Giant Platelets E Commerce Director Cancelled Dimorphic RBCs E Commerce Director Cancelled Polychromasia E Commerce Director Cancelled Hypochromasia E Commerce Director Cancelled Poikilocytosis E Commerce Director Cancelled Basophilic Stippling E Commerce Director Cancelled Anisocytosis 1+ Cancelled Microcytosis E Commerce Director Cancelled Macrocytosis E Commerce Director Cancelled Spherocytes E Commerce Director Cancelled Pappenheimer Bodies E Commerce Director Cancelled Sickle Cells E Commerce Director Cancelled Target Cells E Commerce Director Cancelled Tear Drop Cells E Commerce Director Cancelled Ovalocytes E Commerce Director Cancelled Stomatocytes E Commerce Director Cancelled Helmet Cells E Commerce Director Cancelled [place] Bodies E Commerce Director Cancelled [place] Rings E Commerce Director Cancelled [place] Cells E Commerce Director Cancelled Crenated Cell E Commerce Director Cancelled Acanthocytes (Spur) E Commerce Director Cancelled Rouleaux E Commerce Director Cancelled Schistocytes E Commerce Director Cancelled RBC Morph Comment Abnormal Cancelled Turbidity < 20 Sodium 135 Potassium 5.2 H Chloride 96 L Carbon Dioxide 23 Anion Gap 16 H BUN 91.0 H* Creatinine 3.5 H D GFR Calculation 18 BUN/Creatinine Ratio 26 Glucose 157 H Calculated Osmolality 291 H Calcium 8.8 Phosphorus Magnesium Icterus Index < 2 Plasma Lactate Procalcitonin Specimen Hemolysis 31 H Ur Collection Type Urine Color Urine Clarity Urine pH Ur Specific Mims Urine Protein Urine Glucose (UA) Urine Ketones Urine Occult Blood Urine Nitrate Urine Bilirubin Urine Urobilinogen Ur Leukocyte Esterase Urine RBC Urine WBC Urine Bacteria Ur Culture Indicated? Ur Random Creatinine Ur Random Sodium 03/13/18 03/13/18 03/13/18 04:10 04:10 16:27 WBC 18.3 H Corrected WBC RBC 3.89 L Hgb 13.1 L Hct 39.2 L MCV 100.8 H MCH 33.7 MCHC 33.4 RDW Std Deviation 58.7 H Plt Count 125 L MPV 11.5 Immature Gran % (Auto) Not performed Neut % (Auto) Not performed Lymph % (Auto) Not performed Elk % (Auto) Not performed Eos % (Auto) Not performed Baso % (Auto) Not performed Neut # (Auto) Not performed Lymph # (Auto) Not performed Elk # (Auto) Not performed Eos # (Auto) Not performed Baso # (Auto) Not performed Abs Immat Gran (auto) Not performed Neutrophils % (Manual) 80.0 H Band Neutrophils % 4.0 Lymphocytes % (Manual) 8.0 L Reactive Lymphs % Monocytes % (Manual) 8.0 Eosinophils % (Manual) Basophils % (Manual) Metamyelocytes % Myelocytes % Promyelocytes % Blast Cells % Neutrophils # (Manual) 14.6 H Band Neutrophils # 0.7 Lymphocytes # (Manual) 1.5 Abs React Lymphs (Man) Monocytes # (Manual) 1.5 H Eosinophils # (Manual) Basophils # (Manual) Metamyelocytes # Myelocytes # Promyelocytes # Plasma Cell # (Manual) Nucleated RBCs Hypersegmented Neuts Hyposegmented Neuts Hypogranular Neuts Prolymphocytes Blast Cells # Plasma Cells Smudge Cells Toxic Granulation Toxic Vacuolation Dohle Bodies Giselle Rods Clumped Platelets Giant Platelets Dimorphic RBCs Polychromasia Hypochromasia Poikilocytosis 2+ Basophilic Stippling Anisocytosis 2+ Microcytosis Macrocytosis Spherocytes Pappenheimer Bodies Sickle Cells Target Cells Tear Drop Cells Ovalocytes Stomatocytes Helmet Cells [place] Bodies [place] Rings [place] Cells Crenated Cell Acanthocytes (Spur) Rouleaux Schistocytes 1+ RBC Morph Comment Abnormal Turbidity < 20 Sodium 136 Potassium 4.2 D Chloride 98 Carbon Dioxide 19 L Anion Gap 19 H BUN 100.0 H* Creatinine 3.1 H D GFR Calculation 21 BUN/Creatinine Ratio 32 H Glucose 138 H Calculated Osmolality 295 H Calcium 8.6 Phosphorus 5.9 H Magnesium 2.7 H Icterus Index < 2 Plasma Lactate 2.3 H Procalcitonin Specimen Hemolysis 16 Ur Collection Type Urine Color Urine Clarity Urine pH Ur Specific Mims Urine Protein Urine Glucose (UA) Urine Ketones Urine Occult Blood Urine Nitrate Urine Bilirubin Urine Urobilinogen Ur Leukocyte Esterase Urine RBC Urine WBC Urine Bacteria Ur Culture Indicated? Ur Random Creatinine Ur Random Sodium 03/13/18 03/13/18 03/14/18 17:41 17:41 06:43 WBC 17.4 H Corrected WBC RBC 3.98 L Hgb 13.1 L Hct 39.7 L MCV 99.7 MCH 32.9 MCHC 33.0 RDW Std Deviation 57.6 H Plt Count 89 L MPV 12.3 Immature Gran % (Auto) Not performed Neut % (Auto) Not performed Lymph % (Auto) Not performed Elk % (Auto) Not performed Eos % (Auto) Not performed Baso % (Auto) Not performed Neut # (Auto) Not performed Lymph # (Auto) Not performed Elk # (Auto) Not performed Eos # (Auto) Not performed Baso # (Auto) Not performed Abs Immat Gran (auto) Not performed Neutrophils % (Manual) 90.0 H Band Neutrophils % 2.0 Lymphocytes % (Manual) 5.0 L Reactive Lymphs % Monocytes % (Manual) 3.0 Eosinophils % (Manual) Basophils % (Manual) Metamyelocytes % Myelocytes % Promyelocytes % Blast Cells % Neutrophils # (Manual) 15.7 H Band Neutrophils # 0.3 Lymphocytes # (Manual) 0.9 L Abs React Lymphs (Man) Monocytes # (Manual) 0.5 Eosinophils # (Manual) Basophils # (Manual) Metamyelocytes # Myelocytes # Promyelocytes # Plasma Cell # (Manual) Nucleated RBCs Hypersegmented Neuts Hyposegmented Neuts Hypogranular Neuts Prolymphocytes Blast Cells # Plasma Cells Smudge Cells Toxic Granulation Toxic Vacuolation Dohle Bodies Giselle Rods Clumped Platelets Giant Platelets Dimorphic RBCs Polychromasia 1+ Hypochromasia Poikilocytosis 1+ Basophilic Stippling Anisocytosis 1+ Microcytosis Macrocytosis Spherocytes Pappenheimer Bodies Sickle Cells Target Cells Tear Drop Cells Ovalocytes Stomatocytes Helmet Cells [place] Bodies [place] Rings [place] Cells Crenated Cell Acanthocytes (Spur) Rouleaux Schistocytes RBC Morph Comment Abnormal Turbidity Sodium Potassium Chloride Carbon Dioxide Anion Gap BUN Creatinine GFR Calculation BUN/Creatinine Ratio Glucose Calculated Osmolality Calcium Phosphorus Magnesium Icterus Index Plasma Lactate Procalcitonin Specimen Hemolysis Ur Collection Type Urine, cath mcintyre Urine Color Yellow Urine Clarity Clear Urine pH 5.5 Ur Specific Mims 1.025 Urine Protein 1+ A Urine Glucose (UA) Negative Urine Ketones Negative Urine Occult Blood 3+ A Urine Nitrate Negative Urine Bilirubin Negative Urine Urobilinogen 1.0 Ur Leukocyte Esterase Negative Urine RBC 10-20 H Urine WBC 0-1 Urine Bacteria 2+ H Ur Culture Indicated? Cult not indicated Ur Random Creatinine 196.1 Ur Random Sodium 8 L 03/14/18 03/14/18 06:43 06:43 WBC Corrected WBC RBC Hgb Hct MCV MCH MCHC RDW Std Deviation Plt Count MPV Immature Gran % (Auto) Neut % (Auto) Lymph % (Auto) Elk % (Auto) Eos % (Auto) Baso % (Auto) Neut # (Auto) Lymph # (Auto) Elk # (Auto) Eos # (Auto) Baso # (Auto) Abs Immat Gran (auto) Neutrophils % (Manual) Band Neutrophils % Lymphocytes % (Manual) Reactive Lymphs % Monocytes % (Manual) Eosinophils % (Manual) Basophils % (Manual) Metamyelocytes % Myelocytes % Promyelocytes % Blast Cells % Neutrophils # (Manual) Band Neutrophils # Lymphocytes # (Manual) Abs React Lymphs (Man) Monocytes # (Manual) Eosinophils # (Manual) Basophils # (Manual) Metamyelocytes # Myelocytes # Promyelocytes # Plasma Cell # (Manual) Nucleated RBCs Hypersegmented Neuts Hyposegmented Neuts Hypogranular Neuts Prolymphocytes Blast Cells # Plasma Cells Smudge Cells Toxic Granulation Toxic Vacuolation Dohle Bodies Giselle Rods Clumped Platelets Giant Platelets Dimorphic RBCs Polychromasia Hypochromasia Poikilocytosis Basophilic Stippling Anisocytosis Microcytosis Macrocytosis Spherocytes Pappenheimer Bodies Sickle Cells Target Cells Tear Drop Cells Ovalocytes Stomatocytes Helmet Cells [place] Bodies [place] Rings [place] Cells Crenated Cell Acanthocytes (Spur) Rouleaux Schistocytes RBC Morph Comment Turbidity < 20 Sodium 134 Potassium 4.6 Chloride 96 L Carbon Dioxide 23 Anion Gap 15 BUN 118.0 H* Creatinine 3.8 H D GFR Calculation 17 BUN/Creatinine Ratio 31 H Glucose 115 H Calculated Osmolality 297 H Calcium 8.6 Phosphorus 7.1 H Magnesium 2.9 H Icterus Index < 2 Plasma Lactate 2.1 Procalcitonin 6.26 H* Specimen Hemolysis < 15 Ur Collection Type Urine Color Urine Clarity Urine pH Ur Specific Mims Urine Protein Urine Glucose (UA) Urine Ketones Urine Occult Blood Urine Nitrate Urine Bilirubin Urine Urobilinogen Ur Leukocyte Esterase Urine RBC Urine WBC Urine Bacteria Ur Culture Indicated? Ur Random Creatinine Ur Random Sodium - Diagnostic Findings Chest x-ray: image reviewed (cardiomegaly, improved congestion, ? 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 Cr 3.1>3.8 today, procal 6.2, on vanco and zosyn BC's pending, WBC 18.3>17.4. Hospitalist restarting IVF, bumex still on hold, follow closely as EF on 10-15%. Continue on Bt's with A/A QID and symbicort BID, follow CXR - Time Spent With Patient Total time spent is greater than 50% in coordination of care (as documented) at patient's floor/unit and/or counseling patient: less than 15 minutes
[2018-03-14] MEDS: Bisacodyl EC TAB 5 MG TABLET PO PRN (09:24)
[2018-03-14] MEDS: ACETAMINOPHEN 325 MG TABLET PO PRN ×2 (09:24→21:51)
[2018-03-14] MEDS: ASPIRIN *EC* 81 MG TABLET PO SCH (09:24)
[2018-03-14] MEDS: CLOPIDOGREL 75 MG TABLET PO SCH (09:25)
[2018-03-14] MEDS: PIPERACILLIN/TAZOBACTAM 2.25 GM in NS 100 ML IV SCH ×2 (09:25→16:58)
[2018-03-14] MEDS: MINOCYCLINE 100 MG CAPSULE PO SCH ×2 (09:25→21:39)
[2018-03-14] MEDS: DOCUSATE SODIUM 100 MG CAPSULE PO SCH ×2 (09:26→21:39)
[2018-03-14] MEDS: HEPARIN SUB-Q 5,000units/0.5ml INJECTION SQ SCH (09:26)
[2018-03-14] MEDS: AMIODARONE 200 MG TABLET PO SCH ×2 (09:28→21:39)
[2018-03-14] MEDS: CARVEDILOL 3.125 MG TABLET PO SCH ×2 (09:29→17:26)
--- NOTE | 2018-03-14 09:43 | Progress Note ---
- Date 03/14/18 Subjective: Mirza is a 57 yr old male with a known history of NSTEMI and SVT. He was admitted on 03/06 under the care of Dr. Stahl and had a successful cardioversion. He has known severe cardiomyopathy with an EF of 10% and is scheduled for pacemaker/defibrillator placement later today by Dr. Stahl. He has had persistent leukocytosis since admission. Given his continued elevated white count and tachycardia, he did meet sepsis criteria. The hospitalist services were consulted on 03/13/18 for medical evaluation and treatment. Morning labs are reviewed, white count 16.3, 82% neutrophils. Electrolytes are normal, BUN is 48 and creatinine of 2.2. ProBNP is elevated at 9080. He does continue to be tachycardic at approximately 112, and respiration rate 40, he is afebrile, blood pressure normal 114/73. He is in moderate amount of respiratory distress and currently on BiPAP. He is alert and does attempt to answer some questions however, has a significant amount of conversational dyspnea. He did does deny having any pain on examination. Existing comorbidities include the following- , severe cardiomyopathy, COPD, hypertension, schizophrenia, depression, cataracts, history of renal disease, history of CVA, former alcohol use, former tobacco dependence When seen by me this am, he is on CPAP. He is complaining of buttock pain. SOA and Dyspneic with conversation. He is on 30% with CPAP. 5 liters when on NC. He denies CP. He denies N/V. No BM since , he reports passing gas. Family in room. Flores in place. Objective Vital signs: Temperature 98.2 F 03/14/18 07:33 Pulse Rate 86 03/14/18 07:33 Respiratory Rate 16 03/14/18 09:37 Blood Pressure 143/62 H 03/14/18 07:33 Pulse Oximetry 95 03/14/18 07:43 Height/Weight/BMI: Height 1.73 m Weight 100.4 kg Body Mass Index 35.0 Comments: Gen: alert, pleasant. Skin: warm and dry HEENT: NC/AT PERRL, EOMI, Sclera, lids and conjunctiva wnl, MMM, OP clear, poor dentition Neck: supple. No JVD, Carotids 2+ without bruits. Lungs: Diminished. No rales, rhonchi, wheezes. CV: regular. No murmur, rub or gallop Abd: soft. NT/ND, +hypoactive BS MS: No edema. Reasonable strength, LYLE. Neuro: No focal deficit Psy: pleasant, appropriate mood. Results - Labs CBC & Chem 7: 03/14/18 06:43 03/14/18 06:43 Assessment and Plan (1) Leukocytosis Current visit: Yes Status: Acute Assessment and Plan: Leukocytosis -Slight downward trend again today -Urine unremarkable, CXR today, "stable RLL airspace disease" -No fevers -Mild left shift, no bands -Unsure etiology of his leukocytosis -Blood cx drawn and are pending -Procal up today -Will start zosyn and vanco for now empirically, will de escalate soledad -IVF 1 liter today Acute Dyspnea -Presented to Self on 4 liters via NC -Up to 5 presently -Requiring BiPAP with 30% -Dr. Gibbs consulted Mild acidosis with +AG-->AG normalized today -May need Bipap more often than at noc -Lactate normalized VT/SVT S/P cardioversion -Bi V ICD placed on 03/10/18 -On amiodarone 200mg BID -On Beta clarita-being held for flow BP Elevated LFTs -Trending down-repeat in am Severe, Dilated, Non ischemic Cardiomyopathy -EF 10-15% with severe MR -Pt admits heavy ETOH consumption 6-12 beers daily for many years prior to one year ago. -On Coreg but BP low and having to hold at times -Not on JAGDISH I or ARB likely due to low normal BP and acute on CKD -Bi V ICD placed Systolic Heart failure -BNP elevated over 9000-repeat in am -Symptoms appear improved -CXR mild edema-Improved. Hyperlipidemia -On a statin Hypertension -Low normal at present -Coreg decreased to 3.325mg BID with hold for SBP<100 NSTEMI -HC showing minimal CAD -Likely Type 2 -On ASA and plavix, statin, BBL Mild thrombocytopenia -This has been variable but considerably lower today -Stop heparin, check HIT panel -Repeat in am PAD -H/O stent to RLE - On plavix and ASA Stage III CKD -Creatinine worsening- baseline (1.6). -Avoid nephrotoxic medications and contrast dye -Avoid hypotension, holding Coreg for SBP <100 -Continue to hold diuresis for now, give a liter of IVF -Urine output still marginal, continue to follow -Encourage po intake -Renal U/S unremarkable -Repeat labs in am Hyperkalemia -resolved Schizophrenia -resides in [place], will go back there on discharge Depression History of CVA Ppx: SCDs PO Ranitidine - Physician Narrative Narrative: Date: 03/14/18 Time: 0939 Hospital Course Summary Disclaimer: The visit summary below is not to be considered part of the above Progress Note. Hospital Course: Impression Leukocytosis Tachycardia Elevated LFTs Cardiomyopathy- with acute systolic failure Non-STEMI V. tach hyperlipidemia Hypertension Coronary artery disease Schizophrenia Depression History of CVA Plan Continued cardiology care as per Dr. Stahl, planning for pacemaker/ defibrillator placement later today. Patient doesn't meet nursing sepsis criteria. Given tachycardia, tachypnea and leukocytosis. All 3 of these may be multifactorial including severe cardiomyopathy and respiratory distress. Will obtain UA, Lactate and Blood cultures, Chest Xray to rule out infectious etiology Given respiratory distress will consult pulmonary, Dr Gibbs for evaluation and recommendations Monitor renal function- known CKD- Cosmetician 2.2 (Baseline Cosmetician 1.6) Continues on scheduled Bumex for diuresis- Monitor renal function Appreciate medical consultation. Will continue to follow patient. At time if discharge medical care is to return to PCP in Dr Hilda Self Case discussed with attending, Dr Serna
--- NOTE | 2018-03-14 11:39 | Cardiology Progress Note ---
<Kylee Richards M - Last Filed: 03/14/18 14:27> Subjective Principal diagnosis: SCHF, NSTEMI Interval history: Mirza is seen in follow up for NSTEMI, SVT, and sustained VT that required cardioversion at bedside. He is lying in bed, with parents at the bedside, on bi-pap, c/o dry mouth and asks for Sprite. He denies chest pain or pressure, some tenderness to chest wall where ICD was placed. Denies shortness of breath. Exam Vital signs: Temperature 98.2 F 03/14/18 07:33 Pulse Rate 90 03/14/18 08:46 Respiratory Rate 19 03/14/18 11:17 Blood Pressure 143/62 H 03/14/18 07:33 Pulse Oximetry 93 03/14/18 11:17 Inpatient Medications: Generic Name Dose Route Start Last Admin Trade Name Freq PRN Reason Stop Dose Admin Acetaminophen 325 - 650 mg 03/07/18 14:20 03/14/18 09:24 Tylenol PO 650 mg Q5H PRN Administration Pain Hydrocodone Bitart/Acetaminophen 1 - 2 tab 03/07/18 14:20 03/14/18 06:23 [place] 5/325 PO 1 tab Q5H PRN Administration Pain Al Hydroxide/Mg Hydroxide 30 ml 03/07/18 14:20 Maalox Plus PO Q3H PRN Indigestion Albuterol Sulfate 2.5 mg 03/12/18 02:04 03/12/18 02:06 Proventil Neb (0.083%) AEROSOL 2.5 mg Q2HR PRN Administration Albuterol/Ipratropium 3 ml 03/10/18 11:00 03/14/18 11:16 Duoneb AEROSOL 3 ml RTQID WILLAM Administration Amiodarone HCl 200 mg 03/08/18 21:25 03/14/18 09:28 Pacerone PO 200 mg BID WILLAM Administration Aspirin 81 mg 03/07/18 09:00 03/14/18 09:24 Ecotrin PO 81 mg DAILY WILLAM Administration Atorvastatin Calcium 20 mg 03/08/18 21:00 03/13/18 21:21 Lipitor PO 20 mg HS WILLAM Administration Atropine Sulfate 0.5 mg 03/07/18 14:20 Atropine IVP Q5M PRN Bradycardia Bisacodyl 5 - 10 mg 03/07/18 14:20 03/14/18 09:24 Dulcolax PO 5 mg DAILY PRN Administration Constipation Bisacodyl 10 mg 03/07/18 14:20 Dulcolax RECTALLY DAILY PRN Constipation Budesonide/Formoterol Fumarate 2 puff 03/07/18 12:39 03/14/18 09:36 Symbicort Inhaler ORAL INH 2 puff BID WILLAM Administration Carvedilol 3.125 mg 03/14/18 09:00 03/14/18 09:29 Coreg PO Not Given BIDWM WILLAM Clopidogrel Bisulfate 75 mg 03/07/18 09:00 03/14/18 09:25 Plavix PO 75 mg DAILY WILLAM Administration Docusate Sodium 100 mg 03/07/18 21:00 03/14/18 09:26 Colace PO 100 mg BID WILLAM Administration Docusate Sodium 100 mg 03/07/18 12:50 Colace PO BID PRN Piperacillin Sod/Tazobactam 100 mls @ 200 mls/hr 03/14/18 08:15 03/14/18 09: 55 Sod 2.25 gm/ Sodium Chloride IV Infused Q8H WILLAM Infusion Sodium Chloride 1,000 mls @ 125 mls/hr 03/14/18 08:15 03/14/18 09:55 Normal Saline IV 03/14/18 16:14 125 mls/hr .Q8H WILLAM Infusion Levothyroxine Sodium 250 mcg 03/08/18 06:30 03/09/18 06:09 Synthroid PO 250 mcg SUSA@0630 WILLAM Administration Levothyroxine Sodium 125 mcg 03/10/18 06:30 03/14/18 05:38 Synthroid PO 125 mcg MOTUWETHFR@0630 WILLAM Administration Lorazepam 0.5 - 1 mg 03/07/18 14:20 03/12/18 14:43 Ativan PO 0.5 mg Q4H PRN Administration Anxiety Lorazepam 0.5 - 1 mg 03/07/18 14:20 03/12/18 03:30 Ativan Inj IVP 0.5 mg Q4H PRN Administration Anxiety Magnesium Hydroxide 30 ml 03/07/18 14:20 Mom PO DAILY PRN Constipation Metoclopramide HCl 5 - 10 mg 03/07/18 14:20 03/13/18 01:47 Reglan IVP 10 mg Q6H PRN Administration Nausea &/or vomiting Minocycline HCl 100 mg 03/11/18 21:00 03/14/18 09:25 Minocin PO 03/18/18 20:59 100 mg BID WILLAM Administration Morphine Sulfate 2 - 4 mg 03/07/18 14:20 Morphine Sulfate Inj IVP Q5M PRN Angina Nitroglycerin 0.4 mg 03/07/18 14:20 Nitrostat SL Q5M PRN Angina Ondansetron HCl 4 mg 03/07/18 14:20 Zofran IVP Q6H PRN Nausea &/or vomiting Promethazine HCl 12.5 - 25 mg 03/07/18 14:20 Phenergan Inj IVP Q6HR PRN Nausea &/or vomiting Ranitidine HCl 150 mg 03/07/18 18:00 03/13/18 18:03 Zantac PO 150 mg 1800 WILLAM Administration Sodium Chloride 10 - 80 ml 03/09/18 14:34 03/12/18 10:56 Iv Flush IV 10 ml PRN PRN Administration Flushing Sodium Chloride 10 ml 03/10/18 20:02 Iv Flush IV PRN PRN Flushing Tramadol HCl 50 mg 03/06/18 18:28 03/13/18 14:30 Ultram PO 50 mg Q6H PRN Administration Pain Discontinued Medications Generic Name Dose Route Start Last Admin Trade Name Freq PRN Reason Stop Dose Admin Acetaminophen 650 mg 03/06/18 18:27 Tylenol PO Q5H PRN Pain Adenosine 6 mg 03/06/18 16:02 03/06/18 16:02 Adenocard IVP 03/06/18 16:03 6 mg O ONE Administration Adenosine 12 mg 03/06/18 16:06 03/06/18 16:06 Adenocard IVP 03/06/18 16:07 12 mg O ONE Administration Atorvastatin Calcium 20 mg 03/07/18 18:00 03/10/18 21:34 Lipitor PO Not Given 1800 [facility] Budesonide/Formoterol Fumarate 2 puff 03/07/18 21:00 Symbicort Inhaler ORAL INH BID WILLAM Bumetanide 1 mg 03/06/18 16:09 03/06/18 18:08 Bumex 1 Mg/4 Ml Inj. IVP 03/06/18 16:10 1 mg O ONE Administration Bumetanide 1 mg 03/06/18 16:10 03/06/18 18:09 Bumex 1 Mg/4 Ml Inj. IVP 03/06/18 16:11 1 mg O ONE Administration Bumetanide 1 mg 03/06/18 16:11 03/06/18 16:11 Bumex 1 Mg/4 Ml Inj. IVP 03/06/18 16:12 1 mg O ONE Administration Bumetanide 2 mg 03/07/18 21:00 03/10/18 21:33 Bumex 1 Mg/4 Ml Inj. IVP Not Given QID [facility] Bumetanide 2 mg 03/08/18 15:00 03/09/18 04:06 Bumex 1 Mg/4 Ml Inj. IVP Not Given Q6HR [facility] Bumetanide 1 mg 03/09/18 09:00 03/10/18 08:16 Bumex 1 Mg/4 Ml Inj. IVP 1 mg BID WILLAM Administration Bumetanide 1 mg 03/09/18 14:33 03/09/18 15:41 Bumex 1 Mg/4 Ml Inj. IVP 03/09/18 14:34 1 mg O ONE Administration Bumetanide 2 mg 03/10/18 16:07 03/10/18 20:15 Bumex 1 Mg Tab PO 2 mg [id number] WILLAM Administration Carvedilol 3.125 mg 03/07/18 10:53 03/10/18 07:52 Coreg PO 3.125 mg BIDWM WILLAM Administration Carvedilol 6.25 mg 03/10/18 16:37 03/13/18 09:29 Coreg PO 6.25 mg BIDWM [id number] Administration Device 1 each 03/07/18 12:57 03/07/18 12:[address] [facility] 03/07/18 12:58 1 each O ONE Administration Heparin Sodium (Beef Lung) 6,000 unit 03/06/18 17:04 03/06/18 17:22 Heparin Bolus IVP 03/06/18 17:05 6,000 unit O ONE Administration Heparin Sodium (Beef Lung) 5,000 unit 03/06/18 22:04 03/06/18 22:10 Heparin Bolus IVP 03/06/18 22:05 5,000 unit O ONE Administration Heparin Sodium (Beef Lung) 2,000 unit 03/07/18 09:00 03/07/18 09:21 Heparin Bolus IVP 03/07/18 09:01 2,000 unit O ONE Administration Heparin Sodium (Porcine) 1 each 03/06/18 16:17 Pharmacy Consult - Heparin 03/06/18 16:18 ONE TIME ONE Heparin Sodium (Porcine) 5,000 units 03/09/18 09:00 03/09/18 21:31 Heparin Sq SQ 5,000 units Q12HR WILLAM Administration Heparin Sodium (Porcine) 5,000 units 03/11/18 09:00 03/14/18 09:26 Heparin Sq SQ 5,000 units Q12HR WILLAM Administration Bumetanide 25 mg/ IV Solution 100 mls @ 2 mls/hr 03/06/18 16:15 03/07/18 18: 19 IV Not Given Q24H WILLAM Heparin Sodium (Porcine) 20,000 unit in 500 mls @ 30 mls/hr 03/06/18 17:05 14:00 Heparin Drip IV Infused .[id number] WILLAM Titration Protocol 1,200 UNIT/HR Amiodarone HCl 900 mg/ Sodium 500 mls @ 16.66 mls/hr 03/07/18 00:31 03/08/18 12:41 Chloride IV Not Given .Q24H WILLAM 0.5 MG/MIN Amiodarone HCl 450 mg/ Sodium 250 mls @ 33.33 mls/hr 03/06/18 18:30 03/07/18 02:11 Chloride IV 03/07/18 00:30 Infused .[id number] WILLAM Infusion 1 MG/MIN Amiodarone HCl 150 mg/ Sodium 103 mls @ 618 mls/hr 03/06/18 18:20 03/06/18 19 :59 Chloride IV 03/06/18 18:29 Infused O ONE Infusion Heparin Sodium (Porcine) 20,000 unit in 500 mls @ 35 mls/hr 03/07/18 09:00 09:19 Heparin Drip IV Not Given .[id number] WILLAM Protocol 1,400 UNIT/HR Sodium Chloride 1,000 mls @ 50 mls/hr 03/07/18 14:30 03/08/18 06:17 Normal Saline IV 03/08/18 00:30 50 mls/hr .Q20H WILLAM Infusion Cefazolin Sodium 1 g/ Sodium 100 mls @ 200 mls/hr 03/11/18 01:00 03/11/18 09: 37 Chloride IV 03/11/18 09:29 Infused Q8HR WILLAM Infusion Dopamine HCl/Dextrose 400 mg in 250 mls @ 7.073 mls/hr 03/12/18 09:46 Dopamine Drip IV .Q24H PRN Protocol 2 MCG/KG/MIN Sodium Chloride 1,000 mls @ 75 mls/hr 03/12/18 10:00 03/13/18 00:44 Normal Saline IV 03/12/18 23:19 Infused .[id number] WILLAM Infusion Dopamine HCl/Dextrose 400 mg in 250 mls @ 7.073 mls/hr 03/12/18 11:15 16:06 Dopamine Drip IV Not Given .Q24H WILLAM Protocol 2 MCG/KG/MIN Vancomycin HCl 1,000 mg/ 250 mls @ 250 mls/hr 03/14/18 08:05 03/14/18 10:38 Sodium Chloride IV 03/14/18 08:06 250 mls/hr O ONE Administration Losartan Potassium 25 mg 03/07/18 11:00 03/08/18 12:50 Cozaar PO 25 mg DAILY WILLAM Administration Magnesium Hydroxide 30 ml 03/07/18 12:50 Mom PO DAILY PRN Constipation Mirabegron 50 mg 03/07/18 09:00 03/08/18 08:38 Myrbetriq PO 50 mg DAILY WILLAM Administration Morphine Sulfate 2 - 4 mg 03/07/18 14:20 Morphine Sulfate Inj IVP 03/08/18 14:19 Q2H PRN Pain Ondansetron HCl 4 mg 03/06/18 18:28 Zofran IVP Q6H PRN Nausea &/or vomiting Pharmacy Consult 1 each 03/11/18 15:34 Pharmacy Consult - Fall Risk [facility] 03/11/18 15:35 ONE TIME ONE Potassium Chloride 20 meq 03/08/18 21:23 03/08/18 22:08 K-Dur 20 Meq Tablet PO 03/08/18 21:24 20 meq O ONE Administration Potassium Chloride 20 meq 03/09/18 14:33 03/11/18 08:59 K-Dur 20 Meq Tablet PO 20 meq WB WILLAM Administration Tamsulosin HCl 0.4 mg 03/07/18 18:00 03/08/18 19:04 Flomax PO 0.4 mg 1800 WILLAM Administration - Constitutional mild distress, well nourished, cooperative - Routine HEENT Exam Head: Present: normocephalic ENT: Present: mucous membranes moist - Routine Neck Exam Absent: JVD, carotid bruit - Routine Chest/Breast/Axilla Exam Chest wall: Present: tenderness, pacemaker - Routine Respiratory Exam Present: CTA bilaterally. Absent: rales, wheezes - Routine Cardiovascular Exam Present: RRR, no murmur - Routine Abdominal Exam Present: soft, non tender - Routine Extremities Exam Present: no edema - Routine Skin Exam Present: intact, dry, warm - Routine Neurological Exam Present: alert - Routine Psychiatric Exam Present: normal affect, anxious - Urinary Catheter Management Urethral Cath placed during this visit: yes Urethral indwelling: Yes Insertion date: 03/06/18 Insertion time: 16:15 Results 03/14/18 06:43 03/14/18 06:43 CBC 03/14/18 Range/Units 06:43 WBC 17.4 H (4.5-11.0) T/MM3 RBC 3.98 L (4.50-5.90) M/MM3 Hgb 13.1 L (13.5-17.5) GM/DL Hct 39.7 L (41-53) % Plt Count 89 L (130-400) T/MM3 Neut # (Auto) Not performed Lymph # (Auto) Not performed [place] # (Auto) Not performed Eos # (Auto) Not performed Baso # (Auto) Not performed Comprehensive Metabolic Panel 03/14/18 Range/Units 06:43 Sodium 134 (134-144) MEQ/L Potassium 4.6 (3.6-5) MEQ/L Chloride 96 L (98-107) MEQ/L Carbon Dioxide 23 (22-30) MEQ/L BUN 118.0 H* (9-20) MG/DL Creatinine 3.8 H D (0.8-1.5) mg/dL Glucose 115 H (75-110) MG/DL Calcium 8.6 (8.4-10.2) MG/DL Intake and Output 03/13/18 03/14/18 03/14/18 22:59 06:59 14:59 Intake Total 330 / 330 300 / 300 162.5 / 162.5 Output Total 150 / 150 250 / 250 150 / 150 Balance 180 / 180 50 / 50 12.5 / 12.5 Intake: IV 162.5 / 162.5 Ns 1,000 ml @ 125 mls/hr IV . 62.5 / 62.5 Q8H WILLMA Rx#:[id number] Piperacillin/Tazobactam 2.25 gm 100 / 100 In Ns 100 ml @ 200 mls/hr IV Q8H WILLAM Rx#:[id number] Oral 330 / 330 300 / 300 Output: Urine 150 / 150 Urine Amount (Catheter) 150 / 150 100 / 100 150 / 150 Other: Urine Appearance Cloudy Urine Color Straw Light Dark Urine Odor Normal # Bowel Movements 0 Weight 221 lb 5.506 oz Patient Weight 03/15/18 06:59 Weight 221 lb 5.506 oz - Imaging and Cardiology Imaging & Cardiology Narrative: Date of Exam: 03/14/18 Ordering Provider: Jackeline Rivero MD Type of Exam(s): XR chest 2V Reason for Exam(s): Hypoxia INDICATION: Hypoxia PROCEDURE: CHEST 2-VIEWS UPRIGHT (PA & LAT) Encounter: Initial COMPARISON: March 13, 2018 FINDINGS: Stable hazy airspace disease in the right lung base. No new or worsening airspace consolidation. No pneumothorax or significant pleural effusion. Cardiac silhouette is moderately enlarged but unchanged. Mediastinal contours are stable. Left dual lead pacemaker defibrillator. Overlying monitoring leads. Pulmonary vascularity appears normal. Impression: Resolved pulmonary edema. Stable right lower lobe airspace disease. 03/14/18 11:48 Assessment and Plan - Assessment and Plan (1) Cardiomyopathy Current visit: Yes Status: Chronic (2) HTN (hypertension) Current visit: Yes Status: Chronic (3) CAD (coronary artery disease) Current visit: Yes Status: Chronic (4) CKD (chronic kidney disease) Current visit: Yes Status: Chronic (5) Hyperlipidemia Current visit: Yes Status: Chronic (6) Acute dyspnea Current visit: No Status: Acute (7) Acute systolic CHF (congestive heart failure) Current visit: Yes Status: Acute (8) SVT (supraventricular tachycardia) Current visit: No Status: Acute (9) NSTEMI (non-ST elevated myocardial infarction) Current visit: Yes Status: Acute (10) Acute renal failure superimposed on chronic kidney disease Current visit: Yes Status: Acute - Assessment and Plan 03/12/2018 NSTEMI (non-ST elevated myocardial infarction) - Troponin 1) 0.239, 2) 0.236, 3)0.320 4.)0.412 - WBC trending up VT/ SVT (supraventricular tachycardia) - Continue amiodarone 200 mg PO BID - EKG in am - Bi-V AICD in place - EKG: Sinus Tachycardia, no acute changes - Monitor on tele Acute dyspnea - Presented from [facility] on 4l/NC - RCAT, on 4L per NC this am - CXR no pneumothorax. Mild pulmonary vascular congestion or edema. Acute systolic CHF (congestive heart failure) - Echo: EF 10-15%, severe MR/TR - CXR: mild pulmonary vascular congestion or edema - Cr up to 3.5, BUN 91 - BNP 9080 - Will continue to hold diuresis - Pt admits heavy ETOH consumption 6-12 beers daily for many years prior to one year ago. - Will initiate NS 75 mL/hr x 10 hours - Start dopamine gtt to help perfuse kidneys Cardiomyopathy - Echo: EF 10-15%, severe MR/ TR HTN (hypertension) - Continue Coreg 6.25 mg BID CAD (coronary artery disease) - Heart cath on 03/07/18 revealed coronaries with nonobstructive disease - Continue ASA, BB and statin - Continue Plavix d/t to stent in RLE CKD (chronic kidney disease) - BUN increased to 91/SCr 3.5 (base line 1.6) - Will continue to hold diuresis - Potassium 5.2 - Renal U/S indicated no hydronephrosis or renal mass Hyperlipidemia - Continue Statin Ppx: SQ Heparin PO Ranitidine 03/13/2018 NSTEMI (non-ST elevated myocardial infarction) - Troponin 1) 0.239, 2) 0.236, 3)0.320 4.)0.412 - Likely demand 2/2 respiratory failure/pulmonary edema VT/ SVT (supraventricular tachycardia) - Continue amiodarone 200 mg PO BID - EKG in am - Bi-V AICD in place - EKG: Sinus Tachycardia with LBBB, left axis deviation and supraventricular premature complexes - Monitor on tele Acute dyspnea - Presented from [facility] on 4l/NC - RCAT, continues to need bi-pap intermittently - CXR no pneumothorax. Mild pulmonary vascular congestion or edema. Acute systolic CHF (congestive heart failure) - Echo: EF 10-15%, severe MR/TR - CXR: mild pulmonary vascular congestion or edema - Cr 3.5 yesterday/3.1 today, BUN 91 yesterday/100 today - BNP 9080 - Will continue to hold diuresis - Pt admits heavy ETOH consumption 6-12 beers daily for many years prior to one year ago. - Will initiate NS 75 mL/hr x 10 hours - Will d/c dopamine gtt - Flores to monitor I&O - + FB today - Unable to start JAGDISH/ARB d/t hypotension/CKD Cardiomyopathy - Echo: EF 10-15%, severe MR/ TR - Continue medical therapy - Bi-V AICD in place HTN (hypertension) - Continue Coreg 6.25 mg BID CAD (coronary artery disease) - Heart cath on 03/07/18 revealed coronaries with nonobstructive disease - Continue ASA, BB and statin - Continue Plavix d/t to stent in RLE Acute Renal Failure - BUN 100, Cr 3.1 - Renal U/S indicated no hydronephrosis or renal mass CKD (chronic kidney disease) - Baseline Cr 1.6) - Will continue to hold diuresis - Potassium 4.2 - Mg 2.7 Hyperlipidemia - Continue Statin Ppx: SQ Heparin PO Ranitidine 03/14/18 Dyspnea: CXR: Resolved pulmonary edema. Stable right lower lobe airspace disease. CKD: BUN 118/SCr 3.8 today Transfer to CCU for Milrinone 0.375mcg/kg drip NS at 75mL X 1 liter Hospital Course Summary Disclaimer: The visit summary below is not to be considered part of the above Progress Note. Hospital Course: Impression Leukocytosis Tachycardia Elevated LFTs Cardiomyopathy- with acute systolic failure Non-STEMI V. tach hyperlipidemia Hypertension Coronary artery disease Schizophrenia Depression History of CVA Plan Continued cardiology care as per Dr. Stahl, planning for pacemaker/ defibrillator placement later today. Patient doesn't meet nursing sepsis criteria. Given tachycardia, tachypnea and leukocytosis. All 3 of these may be multifactorial including severe cardiomyopathy and respiratory distress. Will obtain UA, Lactate and Blood cultures, Chest Xray to rule out infectious etiology Given respiratory distress will consult pulmonary, Dr Gibbs for evaluation and recommendations Monitor renal function- known CKD- Siderographer 2.2 (Baseline Siderographer 1.6) Continues on scheduled Bumex for diuresis- Monitor renal function Appreciate medical consultation. Will continue to follow patient. At time if discharge medical care is to return to PCP in Dr Hilda Self Case discussed with attending, Dr Serna <Jose C Stahl - Last Filed: 03/19/18 13:14> Exam Vital signs: Temperature 97.8 F 03/18/18 08:00 Pulse Rate 91 03/18/18 13:00 Respiratory Rate 21 03/18/18 13:00 Blood Pressure 128/75 03/18/18 13:00 Pulse Oximetry 94 03/18/18 13:00 Inpatient Medications: Generic Name Dose Route Start Last Admin Trade Name Freq PRN Reason Stop Dose Admin Acetaminophen 325 - 650 mg 03/07/18 14:20 03/14/18 21:51 Tylenol PO 650 mg Q5H PRN Administration Pain Hydrocodone Bitart/Acetaminophen 1 - 2 tab 03/07/18 14:20 03/17/18 22:37 [place] 5/325 PO 1 tab Q5H PRN Administration Pain Al Hydroxide/Mg Hydroxide 30 ml 03/07/18 14:20 Maalox Plus PO Q3H PRN Indigestion Albuterol Sulfate 2.5 mg 03/12/18 02:04 03/12/18 02:06 Proventil Neb (0.083%) AEROSOL 2.5 mg Q2HR PRN Administration Albuterol/Ipratropium 3 ml 03/10/18 11:00 03/18/18 10:45 Duoneb AEROSOL 2 ml RTQID WILLAM Administration Amiodarone HCl 200 mg 03/08/18 21:25 03/18/18 08:00 Pacerone PO 200 mg BID WILLAM Administration Aspirin 81 mg 03/07/18 09:00 03/18/18 08:00 Ecotrin PO 81 mg DAILY WILLAM Administration Atropine Sulfate 0.5 mg 03/07/18 14:20 Atropine IVP Q5M PRN Bradycardia Bisacodyl 5 - 10 mg 03/07/18 14:20 03/15/18 19:08 Dulcolax PO 5 mg DAILY PRN Administration Constipation Bisacodyl 10 mg 03/07/18 14:20 Dulcolax RECTALLY DAILY PRN Constipation Budesonide/Formoterol Fumarate 2 puff 03/07/18 12:39 03/18/18 10:59 Symbicort Inhaler ORAL INH 2 puff BID WILLAM Administration Carvedilol 3.125 mg 03/18/18 08:17 03/18/18 09:44 Coreg PO 3.125 mg BIDWM WILLAM Administration Clopidogrel Bisulfate 75 mg 03/07/18 09:00 03/18/18 08:00 Plavix PO 75 mg DAILY WILLAM Administration Docusate Sodium 100 mg 03/07/18 21:00 03/18/18 08:01 Colace PO 100 mg BID WILLAM Administration Docusate Sodium 100 mg 03/07/18 12:50 Colace PO BID PRN Heparin Sodium (Porcine) 5,000 units 03/17/18 17:00 03/18/18 08:01 Heparin Sq SQ 5,000 units Q8HR WILLAM Administration Piperacillin Sod/Tazobactam 100 mls @ 200 mls/hr 03/14/18 08:15 03/18/18 08: 31 Sod 2.25 gm/ Sodium Chloride IV Infused Q8H WILLAM Infusion Sodium Chloride 1,000 mls @ 75 mls/hr 03/14/18 15:06 03/14/18 15:40 Normal Saline IV 75 mls/hr .[id number] WILLAM Administration Levothyroxine Sodium 250 mcg 03/08/18 06:30 03/16/18 06:14 Synthroid PO 250 mcg SUSA@0630 WILLAM Administration Levothyroxine Sodium 125 mcg 03/10/18 06:30 03/18/18 09:44 Synthroid PO 125 mcg MOTUWETHFR@0630 WILLAM Administration Lorazepam 0.5 - 1 mg 03/07/18 14:20 03/17/18 22:37 Ativan PO 0.5 mg Q4H PRN Administration Anxiety Lorazepam 0.5 - 1 mg 03/07/18 14:20 03/17/18 02:43 Ativan Inj IVP 0.5 mg Q4H PRN Administration Anxiety Magnesium Hydroxide 30 ml 03/07/18 14:20 03/15/18 20:02 Mom PO 30 ml DAILY PRN Administration Constipation Metoclopramide HCl 5 - 10 mg 03/07/18 14:20 03/13/18 01:47 Reglan IVP 10 mg Q6H PRN Administration Nausea &/or vomiting Minocycline HCl 100 mg 03/11/18 21:00 03/18/18 08:01 Minocin PO 03/18/18 20:59 100 mg BID WILLAM Administration Morphine Sulfate 2 - 4 mg 03/07/18 14:20 Morphine Sulfate Inj IVP Q5M PRN Angina Nitroglycerin 0.4 mg 03/07/18 14:20 Nitrostat SL Q5M PRN Angina Nystatin 5 ml 03/16/18 17:00 03/18/18 08:01 Mycostatin PO 5 ml QID WILLAM Administration Ondansetron HCl 4 mg 03/07/18 14:20 03/17/18 23:37 Zofran IVP 4 mg Q6H PRN Administration Nausea &/or vomiting Polyethylene Glycol 17 gm 03/16/18 09:00 03/18/18 11:18 Miralax PO 17 gm DAILY WILLAM Administration Promethazine HCl 12.5 - 25 mg 03/07/18 14:20 Phenergan Inj IVP Q6HR PRN Nausea &/or vomiting Ranitidine HCl 150 mg 03/07/18 18:00 03/17/18 17:11 Zantac PO 150 mg 1800 WILLAM Administration Sodium Chloride 10 - 80 ml 03/09/18 14:34 03/17/18 02:43 Iv Flush IV 20 ml PRN PRN Administration Flushing Sodium Chloride 10 ml 03/10/18 20:02 Iv Flush IV PRN PRN Flushing Tramadol HCl 50 mg 03/06/18 18:28 03/18/18 01:13 Ultram PO 50 mg Q6H PRN Administration Pain Discontinued Medications Generic Name Dose Route Start Last Admin Trade Name Freq PRN Reason Stop Dose Admin Acetaminophen 650 mg 03/06/18 18:27 Tylenol PO Q5H PRN Pain Adenosine 6 mg 03/06/18 16:02 03/06/18 16:02 Adenocard IVP 03/06/18 16:03 6 mg O ONE Administration Adenosine 12 mg 03/06/18 16:06 03/06/18 16:06 Adenocard IVP 03/06/18 16:07 12 mg O ONE Administration Atorvastatin Calcium 20 mg 03/07/18 18:00 03/10/18 21:34 Lipitor PO Not Given 1800 WILLAM Atorvastatin Calcium 20 mg 03/08/18 21:00 03/15/18 20:02 Lipitor PO 20 mg HS WILLAM Administration Budesonide/Formoterol Fumarate 2 puff 03/07/18 21:00 Symbicort Inhaler ORAL INH BID WILLAM Bumetanide 1 mg 03/06/18 16:09 03/06/18 18:08 Bumex 1 Mg/4 Ml Inj. IVP 03/06/18 16:10 1 mg O ONE Administration Bumetanide 1 mg 03/06/18 16:10 03/06/18 18:09 Bumex 1 Mg/4 Ml Inj. IVP 03/06/18 16:11 1 mg O ONE Administration Bumetanide 1 mg 03/06/18 16:11 03/06/18 16:11 Bumex 1 Mg/4 Ml Inj. IVP 03/06/18 16:12 1 mg O ONE Administration Bumetanide 2 mg 03/07/18 21:00 03/10/18 21:33 Bumex 1 Mg/4 Ml Inj. IVP Not Given QID WILLAM Bumetanide 2 mg 03/08/18 15:00 03/09/18 04:06 Bumex 1 Mg/4 Ml Inj. IVP Not Given Q6HR WILLAM Bumetanide 1 mg 03/09/18 09:00 03/10/18 08:16 Bumex 1 Mg/4 Ml Inj. IVP 1 mg BID WILLAM Administration Bumetanide 1 mg 03/09/18 14:33 03/09/18 15:41 Bumex 1 Mg/4 Ml Inj. IVP 03/09/18 14:34 1 mg O ONE Administration Bumetanide 2 mg 03/10/18 16:07 03/10/18 20:15 Bumex 1 Mg Tab PO 2 mg [id number] WILLAM Administration Carvedilol 3.125 mg 03/07/18 10:53 03/10/18 07:52 Coreg PO 3.125 mg BIDWM WILLAM Administration Carvedilol 6.25 mg 03/10/18 16:37 03/13/18 09:29 Coreg PO 6.25 mg BIDWM WILLAM Administration Carvedilol 3.125 mg 03/14/18 09:00 03/17/18 08:28 Coreg PO 3.125 mg BIDWM WILLAM Administration Device 1 each 03/07/18 12:57 03/07/18 12:59 Optichamber 03/07/18 12:58 1 each O ONE Administration Furosemide 40 mg 03/16/18 18:23 03/16/18 18:25 Lasix 40 Mg/4 Ml IVP 03/16/18 18:24 40 mg O ONE Administration Furosemide 40 mg 03/16/18 19:04 03/16/18 19:05 Lasix 40 Mg/4 Ml IVP 03/16/18 19:05 40 mg O ONE Administration Heparin Sodium (Beef Lung) 6,000 unit 03/06/18 17:04 03/06/18 17:22 Heparin Bolus IVP 03/06/18 17:05 6,000 unit O ONE Administration Heparin Sodium (Beef Lung) 5,000 unit 03/06/18 22:04 03/06/18 22:10 Heparin Bolus IVP 03/06/18 22:05 5,000 unit O ONE Administration Heparin Sodium (Beef Lung) 2,000 unit 03/07/18 09:00 03/07/18 09:21 Heparin Bolus IVP 03/07/18 09:01 2,000 unit O ONE Administration Heparin Sodium (Porcine) 1 each 03/06/18 16:17 Pharmacy Consult - Heparin 03/06/18 16:18 ONE TIME ONE Heparin Sodium (Porcine) 5,000 units 03/09/18 09:00 03/09/18 21:31 Heparin Sq SQ 5,000 units Q12HR WILLAM Administration Heparin Sodium (Porcine) 5,000 units 03/11/18 09:00 03/14/18 09:26 Heparin Sq SQ 5,000 units Q12HR WILLAM Administration Bumetanide 25 mg/ IV Solution 100 mls @ 2 mls/hr 03/06/18 16:15 03/07/18 18: 19 IV Not Given Q24H [facility] Heparin Sodium (Porcine) 20,000 unit in 500 mls @ 30 mls/hr 03/06/18 17:05 14:00 Heparin Drip IV Infused .[id number] WILLAM Titration Protocol 1,200 UNIT/HR Amiodarone HCl 900 mg/ Sodium 500 mls @ 16.66 mls/hr 03/07/18 00:31 03/08/18 12:41 Chloride IV Not Given .Q24H WILLAM 0.5 MG/MIN Amiodarone HCl 450 mg/ Sodium 250 mls @ 33.33 mls/hr 03/06/18 18:30 03/07/18 02:11 Chloride IV 03/07/18 00:30 Infused .Q7H31M WILLAM Infusion 1 MG/MIN Amiodarone HCl 150 mg/ Sodium 103 mls @ 618 mls/hr 03/06/18 18:20 03/06/18 19 :59 Chloride IV 03/06/18 18:29 Infused O ONE Infusion Heparin Sodium (Porcine) 20,000 unit in 500 mls @ 35 mls/hr 03/07/18 09:00 09:19 Heparin Drip IV Not Given .[id number] WILLAM Protocol 1,400 UNIT/HR Sodium Chloride 1,000 mls @ 50 mls/hr 03/07/18 14:30 03/08/18 06:17 Normal Saline IV 03/08/18 00:30 50 mls/hr .Q20H WILLMA Infusion Cefazolin Sodium 1 g/ Sodium 100 mls @ 200 mls/hr 03/11/18 01:00 03/11/18 09: 37 Chloride IV 03/11/18 09:29 Infused Q8HR WILLAM Infusion Dopamine HCl/Dextrose 400 mg in 250 mls @ 7.073 mls/hr 03/12/18 09:46 Dopamine Drip IV .Q24H PRN Protocol 2 MCG/KG/MIN Sodium Chloride 1,000 mls @ 75 mls/hr 03/12/18 10:00 03/13/18 00:44 Normal Saline IV 03/12/18 23:19 Infused .[id number] WILLAM Infusion Dopamine HCl/Dextrose 400 mg in 250 mls @ 7.073 mls/hr 03/12/18 11:15 16:06 Dopamine Drip IV Not Given .Q24H WILLAM Protocol 2 MCG/KG/MIN Vancomycin HCl 1,000 mg/ 250 mls @ 250 mls/hr 03/14/18 08:05 03/14/18 11:38 Sodium Chloride IV 03/14/18 08:06 Infused O ONE Infusion Sodium Chloride 1,000 mls @ 125 mls/hr 03/14/18 08:15 03/14/18 18:24 Normal Saline IV 03/14/18 16:14 Infused .Q8H WILLAM Infusion Milrinone Lactate/Dextrose 20 mg in 100 mls @ 11.295 mls/hr 03/14/18 15:06 03:00 Milrinone Drip Premix IV Infused .Q8H52M WILLAM Infusion Protocol 0.375 MCG/KG/MIN Dopamine HCl/Dextrose 400 mg in 250 mls @ 7.665 mls/hr 03/16/18 15:36 17:50 Dopamine Drip IV Infused .Q24H PRN Titration Protocol 2 MCG/KG/MIN Losartan Potassium 25 mg 03/07/18 11:00 03/08/18 12:50 Cozaar PO 25 mg DAILY WILLAM Administration Magnesium Hydroxide 30 ml 03/07/18 12:50 Mom PO DAILY PRN Constipation Methylprednisolone Sodium Succinate 125 mg 03/16/18 18:29 03/16/18 18:15 Solu-Medrol IVP 03/16/18 18:30 125 mg O ONE Administration Mirabegron 50 mg 03/07/18 09:00 03/08/18 08:38 Myrbetriq PO 50 mg DAILY WILLAM Administration Morphine Sulfate 2 - 4 mg 03/07/18 14:20 Morphine Sulfate Inj IVP 03/08/18 14:19 Q2H PRN Pain Ondansetron HCl 4 mg 03/06/18 18:28 Zofran IVP Q6H PRN Nausea &/or vomiting Pharmacy Consult 1 each 03/11/18 15:34 Pharmacy Consult - Fall Risk [facility] 03/11/18 15:35 ONE TIME ONE Potassium Chloride 20 meq 03/08/18 21:23 03/08/18 22:08 K-Dur 20 Meq Tablet PO 03/08/18 21:24 20 meq O ONE Administration Potassium Chloride 20 meq 03/09/18 14:33 03/11/18 08:59 K-Dur 20 Meq Tablet PO 20 meq WB WILLAM Administration Potassium Chloride 40 meq 03/16/18 08:40 03/16/18 09:03 K-Dur 20 Meq Tablet PO 03/16/18 08:41 40 meq O ONE Administration Tamsulosin HCl 0.4 mg 03/07/18 18:00 03/08/18 19:04 Flomax PO 0.4 mg 1800 WILLAM Administration - Urinary Catheter Management Urethral Cath placed during this visit: no Results 03/19/18 04:08 03/19/18 04:08 Cardiac Enzymes 03/18/18 Range/Units 04:14 AST 103 H D (17-59) U/L CBC 03/18/18 Range/Units 04:14 WBC 19.2 H D (4.5-11.0) T/MM3 RBC 3.64 L (4.50-5.90) M/MM3 Hgb 11.9 L (13.5-17.5) GM/DL Hct 35.7 L (41-53) % Plt Count 105 L (130-400) T/MM3 Neut # (Auto) Not performed Lymph # (Auto) Not performed [place] # (Auto) Not performed Eos # (Auto) Not performed Baso # (Auto) Not performed Comprehensive Metabolic Panel 03/18/18 Range/Units 04:14 Sodium 138 (134-144) MEQ/L Potassium 4.0 (3.6-5) MEQ/L Chloride 96 L (98-107) MEQ/L Carbon Dioxide 30 (22-30) MEQ/L BUN 86.0 H* (9-20) MG/DL Creatinine 2.0 H D (0.8-1.5) mg/dL Glucose 297 H (75-110) MG/DL Calcium 8.5 (8.4-10.2) MG/DL AST 103 H D (17-59) U/L ALT 270 H (1-50) U/L Alkaline Phosphatase 97 (38-126) U/L Total Protein 6.3 (6.3-8.2) g/dL Albumin 3.4 L (3.5-5.0) g/dL Intake and Output 03/17/18 03/18/18 03/18/18 22:59 06:59 14:59 Intake Total 290.594 / 290.594 529.406 / 529.406 570 / 570 Output Total 568 / 568 520 / 520 258 / 258 Balance -277.406 / -277.406 9.406 / 9.406 312 / 312 Intake: IV 170.594 / 170.594 129.406 / 129.406 100 / 100 Milrinone Drip 20 mg In 100 ml 70.594 / 70.594 29.406 / 29.406 @ 0.375 MCG/KG/MIN 11.295 mls/ hr IV .Q8H52M [facility] Rx#:[id number] Piperacillin/Tazobactam 2.25 gm 100 / 100 100 / 100 100 / 100 In Ns 100 ml @ 200 mls/hr IV Q8H WILLAM Rx#:[id number] Oral 120 / 120 400 / 400 470 / 470 Output: Urine Amount (Catheter) 568 / 568 520 / 520 258 / 258 Other: Urine Appearance Sediment Sediment Sediment Urine Color Yellow Yellow Yellow # Incontinent Voids 1 Assessment and Plan - Assessment and Plan (1) Cardiomyopathy Current visit: Yes Status: Chronic (2) HTN (hypertension) Current visit: Yes Status: Chronic (3) CAD (coronary artery disease) Current visit: Yes Status: Chronic (4) CKD (chronic kidney disease) Current visit: Yes Status: Chronic (5) Hyperlipidemia Current visit: Yes Status: Chronic (6) Acute dyspnea Current visit: No Status: Acute (7) Acute systolic CHF (congestive heart failure) Current visit: Yes Status: Acute (8) SVT (supraventricular tachycardia) Current visit: No Status: Acute (9) NSTEMI (non-ST elevated myocardial infarction) Current visit: Yes Status: Acute (10) Acute renal failure superimposed on chronic kidney disease Current visit: Yes Status: Acute - Attestation Attestation Narrative: 03/18/18 13:42 Recommendation After examining the patient I agree with the above assessment. I am involved in the formulation of the patient's plan of care. Hospital Course Summary Disclaimer: The visit summary below is not to be considered part of the above Progress Note.
[2018-03-14] MEDS: TRAMADOL 50 MG TABLET PO PRN (14:39)
--- NOTE | 2018-03-14 16:38 | XRay Report ---
Indication: picc line placement PROCEDURE: XR chest 1V: Encounter: Initial Comparison: March 14, 2018 at 0710 Findings: New right PICC line in place with the tip projecting over the lower SVC. Left pacemaker. No pneumothorax. Stable airspace opacity in the right lower lobe. Cardiomediastinal contours and pulmonary vascularity are unchanged. Impression: New right PICC line tip projects in appropriate position. .
[2018-03-14] MEDS: MILRINONE DRIP 20 MG/100 ML BAG IV SCH ×2 (16:53→22:30)
[2018-03-14] MEDS: RANITIDINE 150 MG TABLET PO SCH (17:26)
[2018-03-14] MEDS: ATORVASTATIN 20 MG TABLET PO SCH (21:39)
[2018-03-14] MEDS: SALINE FLUSH 10ml SYRINGE IV PRN (21:39)
[2018-03-15] MEDS: PIPERACILLIN/TAZOBACTAM 2.25 GM in NS 100 ML IV SCH ×3 (00:05→17:09)
[2018-03-15] MEDS: LEVOTHYROXINE 125 MCG TABLET PO SCH (06:07)
[2018-03-15] MEDS: ALBUTEROL/IPRATROPIUM 2.5mg-0.5mg/3ml NEB AEROSOL SCH ×4 (06:45→18:47)
[2018-03-15] MEDS: MILRINONE DRIP 20 MG/100 ML BAG IV SCH ×2 (07:59→17:37)
--- NOTE | 2018-03-15 08:09 | Progress Note ---
- Date 03/15/18 Subjective: Mirza is a 57 yr old male with a history of schizophrenia and decreased mental capacity who lives resides at [facility]. He is a patient of Dr. Stahl with a history of NSTEMI and SVT. He was admitted on under the care of Dr. Stahl and had a successful cardioversion of his SVT. He has known severe cardiomyopathy with an EF of 10%. He was scheduled for a pacemaker/defibrillator placement on the day of admission. He has had persistent leukocytosis since admission. Given his continued elevated white count and tachycardia, he did meet sepsis criteria. The hospitalist services were consulted on 03/13/18 for medical evaluation and treatment. Pt developed acute on chronic renal insufficiency. He has been hypotensive. He has had poor urine output. He was transferred to ICU on 03/14/18 for a milrinone gtt. When seen this am he is resting comfortably but complains of right lower leg pain. He otherwise thinks he is doing better. He was on CPAP overnight and tolerated it well. This am he is on NC at 6liters. He denies N/V or abdominal pain. He denies increased SOA. He is coughing and it sounds moist. Objective Vital signs: Temperature 97.8 F 03/15/18 07:47 Pulse Rate 76 03/15/18 07:00 Respiratory Rate 23 03/15/18 07:00 Blood Pressure 120/59 03/15/18 06:31 Pulse Oximetry 99 03/15/18 07:00 Height/Weight/BMI: Height 1.73 m Weight 102.3 kg Body Mass Index 35.0 Comments: Gen: awake, alert, and pleasant. Skin: warm and dry HEENT: NC/AT PERRL, EOMI, Sclera, lids and conjunctiva wnl, MMM, OP clear, poor dentition Neck: supple. No JVD, Carotids 2+ without bruits. Lungs: Diminished. coarse BS. No wheezes CV: irregular. Tele shows SR with PACs Abd: soft. NT/ND, +hypoactive BS MS: No edema. Reasonable strength, LYLE. Has a Left AKA, No obvious external issues with the right lower leg. SCDs on that leg. Neuro: No focal deficit Psy: pleasant, appropriate mood. Results - Labs CBC & Chem 7: 03/15/18 03:50 03/15/18 03:50 Assessment and Plan (1) Leukocytosis Current visit: Yes Status: Acute Assessment and Plan: Leukocytosis -Slight downward trend again today -Urine unremarkable, CXR without infiltrate/PNA-repeat this am -Obtain sputum cx -No fevers -Mild left shift, no bands -Unsure etiology of his leukocytosis -Blood cx drawn and are pending -Repeat labs in am. Acute Dyspnea -Presented to [facility] on 4 liters via NC -Up to 6 presently -Requiring BiPAP -Dr. Gibbs consulted -Cough+, check sputum -Repeat CXR Mild acidosis with +AG-resolved. -Check ABG -May need Bipap more often than at noc VT/SVT S/P cardioversion -Bi V ICD placed on 03/10/18 -On amiodarone 200mg BID -On Beta clarita with hold parameters for BP Elevated LFTs -?Shock liver, follow trend Severe, Dilated, Non ischemic Cardiomyopathy -EF 10% with severe MR -Pt admits heavy ETOH consumption 6-12 beers daily for many years prior to one year ago. -On Coreg with hold parameters for BP -Not on JAGDISH I or ARB due to low normal BP and acute on CKD -Bi V ICD placed Systolic Heart failure [place] [address] -CXR - repeat this am Hyperlipidemia -On a statin Hypertension -Low normal at present on Coreg 3.125mg BID with hold parameters for BP NSTEMI -HC showing minimal CAD -Likely Type 2 -On ASA and plavix, statin, BBL Mild thrombocytopenia -trending down -Stop heparin -Check HIT panel PAD -H/O stent to RLE -H/O L AKA -On plavix and ASA Stage III CKD -Creatinine better this am. Still not at baseline (1.6). -Avoid nephrotoxic medications and contrast dye -Diuresis per cardiology -Urine output still marginal, continue to follow -Encourage po intake -Renal U/S unremarkable -Repeat labs in am Hyperkalemia -resolved-now on the low normal side -Replace and follow Schizophrenia -resides in [place], will likely go back there on discharge Depression History of CVA Ppx: SCDs on right LE PO Ranitidine - Physician Narrative Narrative: Date: 03/15/18 Time: 0804 Hospital Course Summary Disclaimer: The visit summary below is not to be considered part of the above Progress Note. Hospital Course: Impression Leukocytosis Tachycardia Elevated LFTs Cardiomyopathy- with acute systolic failure Non-STEMI V. tach hyperlipidemia Hypertension Coronary artery disease Schizophrenia Depression History of CVA Plan Continued cardiology care as per Dr. Stahl, planning for pacemaker/ defibrillator placement later today. Patient doesn't meet nursing sepsis criteria. Given tachycardia, tachypnea and leukocytosis. All 3 of these may be multifactorial including severe cardiomyopathy and respiratory distress. Will obtain UA, Lactate and Blood cultures, Chest Xray to rule out infectious etiology Given respiratory distress will consult pulmonary, Dr Gibbs for evaluation and recommendations Monitor renal function- known CKD- [place] 2.2 (Baseline [place] 1.6) Continues on scheduled Bumex for diuresis- Monitor renal function Appreciate medical consultation. Will continue to follow patient. At time if discharge medical care is to return to PCP in Dr Hilda Self Case discussed with attending, Dr Serna
[2018-03-15] MEDS: AMIODARONE 200 MG TABLET PO SCH ×2 (08:46→20:02)
[2018-03-15] MEDS: CARVEDILOL 3.125 MG TABLET PO SCH ×2 (08:46→17:42)
[2018-03-15] MEDS: CLOPIDOGREL 75 MG TABLET PO SCH (08:46)
[2018-03-15] MEDS: DOCUSATE SODIUM 100 MG CAPSULE PO SCH ×2 (08:47→20:02)
[2018-03-15] MEDS: ASPIRIN *EC* 81 MG TABLET PO SCH (08:47)
[2018-03-15] MEDS: MINOCYCLINE 100 MG CAPSULE PO SCH ×2 (08:48→20:02)
[2018-03-15] MEDS: HYDROCODONE/APAP 5mg/325mg TABLET PO PRN ×2 (15:11→21:03)
[2018-03-15] MEDS: SALINE FLUSH 10ml SYRINGE IV PRN (17:09)
[2018-03-15] MEDS: RANITIDINE 150 MG TABLET PO SCH (19:08)
[2018-03-15] MEDS: Bisacodyl EC TAB 5 MG TABLET PO PRN (19:08)
[2018-03-15] MEDS: ATORVASTATIN 20 MG TABLET PO SCH (20:02)
--- NOTE | 2018-03-15 20:21 | Cardiology Progress Note ---
<FelibertoAntoinette T - Last Filed: 03/16/18 15:37> Subjective Principal diagnosis: SCHF, NSTEMI Interval history: Mirza is seen in follow up for NSTEMI, SVT, and sustained VT that required cardioversion at bedside. He is lying in bed, with parents at the bedside, on NC He denies chest pain or SOB. Exam Vital signs: Temperature 97.9 F 03/15/18 16:00 Pulse Rate 104 H 03/15/18 16:00 Respiratory Rate 16 03/15/18 19:01 Blood Pressure 94/50 03/15/18 16:00 Pulse Oximetry 96 03/15/18 18:53 Inpatient Medications: Generic Name Dose Route Start Last Admin Trade Name Freq PRN Reason Stop Dose Admin Acetaminophen 325 - 650 mg 03/07/18 14:20 03/14/18 21:51 Tylenol PO 650 mg Q5H PRN Administration Pain Hydrocodone Bitart/Acetaminophen 1 - 2 tab 03/07/18 14:20 03/15/18 15:11 [place] 5/325 PO 1 tab Q5H PRN Administration Pain Al Hydroxide/Mg Hydroxide 30 ml 03/07/18 14:20 Maalox Plus PO Q3H PRN Indigestion Albuterol Sulfate 2.5 mg 03/12/18 02:04 03/12/18 02:06 Proventil Neb (0.083%) AEROSOL 2.5 mg Q2HR PRN Administration Albuterol/Ipratropium 3 ml 03/10/18 11:00 03/15/18 18:47 Duoneb AEROSOL 3 ml RTQID WILLAM Administration Amiodarone HCl 200 mg 03/08/18 21:25 03/15/18 20:02 Pacerone PO 200 mg BID WILLAM Administration Aspirin 81 mg 03/07/18 09:00 03/15/18 08:47 Ecotrin PO 81 mg DAILY WILLAM Administration Atorvastatin Calcium 20 mg 03/08/18 21:00 03/15/18 20:02 Lipitor PO 20 mg HS WILLAM Administration Atropine Sulfate 0.5 mg 03/07/18 14:20 Atropine IVP Q5M PRN Bradycardia Bisacodyl 5 - 10 mg 03/07/18 14:20 03/15/18 19:08 Dulcolax PO 5 mg DAILY PRN Administration Constipation Bisacodyl 10 mg 03/07/18 14:20 Dulcolax RECTALLY DAILY PRN Constipation Budesonide/Formoterol Fumarate 2 puff 03/07/18 12:39 03/15/18 18:48 Symbicort Inhaler ORAL INH 2 puff BID WILLAM Administration Carvedilol 3.125 mg 03/14/18 09:00 03/15/18 17:42 Coreg PO 3.125 mg BIDWM WILLAM Administration Clopidogrel Bisulfate 75 mg 03/07/18 09:00 03/15/18 08:46 Plavix PO 75 mg DAILY WILLAM Administration Docusate Sodium 100 mg 03/07/18 21:00 03/15/18 20:02 Colace PO 100 mg BID WILLAM Administration Docusate Sodium 100 mg 03/07/18 12:50 Colace PO BID PRN Piperacillin Sod/Tazobactam 100 mls @ 200 mls/hr 03/14/18 08:15 03/15/18 18: 00 Sod 2.25 gm/ Sodium Chloride IV Infused Q8H WILLAM Infusion Milrinone Lactate/Dextrose 20 mg in 100 mls @ 11.295 mls/hr 03/14/18 15:06 20:00 Milrinone Drip Premix IV 0.37 mcg/kg/min .[id number] WILLAM 11.144 mls/hr Protocol Infusion 0.375 MCG/KG/MIN Sodium Chloride 1,000 mls @ 75 mls/hr 03/14/18 15:06 03/14/18 15:40 Normal Saline IV 75 mls/hr .[id number] WILLAM Administration Levothyroxine Sodium 250 mcg 03/08/18 06:30 03/15/18 06:07 Synthroid PO 250 mcg SUSA@0630 WILLAM Administration Levothyroxine Sodium 125 mcg 03/10/18 06:30 03/14/18 05:38 Synthroid PO 125 mcg MOTUWETHFR@0630 WILLAM Administration Lorazepam 0.5 - 1 mg 03/07/18 14:20 03/12/18 14:43 Ativan PO 0.5 mg Q4H PRN Administration Anxiety Lorazepam 0.5 - 1 mg 03/07/18 14:20 03/12/18 03:30 Ativan Inj IVP 0.5 mg Q4H PRN Administration Anxiety Magnesium Hydroxide 30 ml 03/07/18 14:20 03/15/18 20:02 Mom PO 30 ml DAILY PRN Administration Constipation Metoclopramide HCl 5 - 10 mg 03/07/18 14:20 03/13/18 01:47 Reglan IVP 10 mg Q6H PRN Administration Nausea &/or vomiting Minocycline HCl 100 mg 03/11/18 21:00 03/15/18 20:02 Minocin PO 03/18/18 20:59 100 mg BID WILLAM Administration Morphine Sulfate 2 - 4 mg 03/07/18 14:20 Morphine Sulfate Inj IVP Q5M PRN Angina Nitroglycerin 0.4 mg 03/07/18 14:20 Nitrostat SL Q5M PRN Angina Ondansetron HCl 4 mg 03/07/18 14:20 Zofran IVP Q6H PRN Nausea &/or vomiting Promethazine HCl 12.5 - 25 mg 03/07/18 14:20 Phenergan Inj IVP Q6HR PRN Nausea &/or vomiting Ranitidine HCl 150 mg 03/07/18 18:00 03/15/18 19:08 Zantac PO 150 mg 1800 WILLAM Administration Sodium Chloride 10 - 80 ml 03/09/18 14:34 03/15/18 17:09 Iv Flush IV 30 ml PRN PRN Administration Flushing Sodium Chloride 10 ml 03/10/18 20:02 Iv Flush IV PRN PRN Flushing Tramadol HCl 50 mg 03/06/18 18:28 03/14/18 14:39 Ultram PO 50 mg Q6H PRN Administration Pain Discontinued Medications Generic Name Dose Route Start Last Admin Trade Name Freq PRN Reason Stop Dose Admin Acetaminophen 650 mg 03/06/18 18:27 Tylenol PO Q5H PRN Pain Adenosine 6 mg 03/06/18 16:02 03/06/18 16:02 Adenocard IVP 03/06/18 16:03 6 mg O ONE Administration Adenosine 12 mg 03/06/18 16:06 03/06/18 16:06 Adenocard IVP 03/06/18 16:07 12 mg O ONE Administration Atorvastatin Calcium 20 mg 03/07/18 18:00 03/10/18 21:34 Lipitor PO Not Given 1800 [facility] Budesonide/Formoterol Fumarate 2 puff 03/07/18 21:00 Symbicort Inhaler ORAL INH BID [facility] Bumetanide 1 mg 03/06/18 16:09 03/06/18 18:08 Bumex 1 Mg/4 Ml Inj. IVP 03/06/18 16:10 1 mg O ONE Administration Bumetanide 1 mg 03/06/18 16:10 03/06/18 18:09 Bumex 1 Mg/4 Ml Inj. IVP 03/06/18 16:11 1 mg O ONE Administration Bumetanide 1 mg 03/06/18 16:11 03/06/18 16:11 Bumex 1 Mg/4 Ml Inj. IVP 03/06/18 16:12 1 mg O ONE Administration Bumetanide 2 mg 03/07/18 21:00 03/10/18 21:33 Bumex 1 Mg/4 Ml Inj. IVP Not Given QID WILLAM Bumetanide 2 mg 03/08/18 15:00 03/09/18 04:06 Bumex 1 Mg/4 Ml Inj. IVP Not Given Q6HR WILLAM Bumetanide 1 mg 03/09/18 09:00 03/10/18 08:16 Bumex 1 Mg/4 Ml Inj. IVP 1 mg BID WILLAM Administration Bumetanide 1 mg 03/09/18 14:33 03/09/18 15:41 Bumex 1 Mg/4 Ml Inj. IVP 03/09/18 14:34 1 mg O ONE Administration Bumetanide 2 mg 03/10/18 16:07 03/10/18 20:15 Bumex 1 Mg Tab PO 2 mg [id number] WILLAM Administration Carvedilol 3.125 mg 03/07/18 10:53 03/10/18 07:52 Coreg PO 3.125 mg BIDWM WILLAM Administration Carvedilol 6.25 mg 03/10/18 16:37 03/13/18 09:29 Coreg PO 6.25 mg BIDWM WILLAM Administration Device 1 each 03/07/18 12:57 03/07/18 12:59 Optichamber MC 03/07/18 12:58 1 each O ONE Administration Heparin Sodium (Beef Lung) 6,000 unit 03/06/18 17:04 03/06/18 17:22 Heparin Bolus IVP 03/06/18 17:05 6,000 unit O ONE Administration Heparin Sodium (Beef Lung) 5,000 unit 03/06/18 22:04 03/06/18 22:10 Heparin Bolus IVP 03/06/18 22:05 5,000 unit O ONE Administration Heparin Sodium (Beef Lung) 2,000 unit 03/07/18 09:00 03/07/18 09:21 Heparin Bolus IVP 03/07/18 09:01 2,000 unit O ONE Administration Heparin Sodium (Porcine) 1 each 03/06/18 16:17 Pharmacy Consult - Heparin 03/06/18 16:18 ONE TIME ONE Heparin Sodium (Porcine) 5,000 units 03/09/18 09:00 03/09/18 21:31 Heparin Sq SQ 5,000 units Q12HR WILLAM Administration Heparin Sodium (Porcine) 5,000 units 03/11/18 09:00 03/14/18 09:26 Heparin Sq SQ 5,000 units Q12HR WILLAM Administration Bumetanide 25 mg/ IV Solution 100 mls @ 2 mls/hr 03/06/18 16:15 03/07/18 18: 19 IV Not Given Q24H WILLAM Heparin Sodium (Porcine) 20,000 unit in 500 mls @ 30 mls/hr 03/06/18 17:05 14:00 Heparin Drip IV Infused .[id number] WILLAM Titration Protocol 1,200 UNIT/HR Amiodarone HCl 900 mg/ Sodium 500 mls @ 16.66 mls/hr 03/07/18 00:31 03/08/18 12:41 Chloride IV Not Given .Q24H WILLAM 0.5 MG/MIN Amiodarone HCl 450 mg/ Sodium 250 mls @ 33.33 mls/hr 03/06/18 18:30 03/07/18 02:11 Chloride IV 03/07/18 00:30 Infused .[id number] WILLAM Infusion 1 MG/MIN Amiodarone HCl 150 mg/ Sodium 103 mls @ 618 mls/hr 03/06/18 18:20 03/06/18 19 :59 Chloride IV 03/06/18 18:29 Infused O ONE Infusion Heparin Sodium (Porcine) 20,000 unit in 500 mls @ 35 mls/hr 03/07/18 09:00 09:19 Heparin Drip IV Not Given .[id number] WILLAM Protocol 1,400 UNIT/HR Sodium Chloride 1,000 mls @ 50 mls/hr 03/07/18 14:30 03/08/18 06:17 Normal Saline IV 03/08/18 00:30 50 mls/hr .Q20H WILLAM Infusion Cefazolin Sodium 1 g/ Sodium 100 mls @ 200 mls/hr 03/11/18 01:00 03/11/18 09: 37 Chloride IV 03/11/18 09:29 Infused Q8HR WILLAM Infusion Dopamine HCl/Dextrose 400 mg in 250 mls @ 7.073 mls/hr 03/12/18 09:46 Dopamine Drip IV .Q24H PRN Protocol 2 MCG/KG/MIN Sodium Chloride 1,000 mls @ 75 mls/hr 03/12/18 10:00 03/13/18 00:44 Normal Saline IV 03/12/18 23:19 Infused .[id number] WILLAM Infusion Dopamine HCl/Dextrose 400 mg in 250 mls @ 7.073 mls/hr 03/12/18 11:15 16:06 Dopamine Drip IV Not Given .Q24H WILLAM Protocol 2 MCG/KG/MIN Vancomycin HCl 1,000 mg/ 250 mls @ 250 mls/hr 03/14/18 08:05 03/14/18 11:38 Sodium Chloride IV 03/14/18 08:06 Infused O ONE Infusion Sodium Chloride 1,000 mls @ 125 mls/hr 03/14/18 08:15 03/14/18 18:24 Normal Saline IV 03/14/18 16:14 Infused .Q8H WILLAM Infusion Losartan Potassium 25 mg 03/07/18 11:00 03/08/18 12:50 Cozaar PO 25 mg DAILY WILLAM Administration Magnesium Hydroxide 30 ml 03/07/18 12:50 Mom PO DAILY PRN Constipation Mirabegron 50 mg 03/07/18 09:00 03/08/18 08:38 Myrbetriq PO 50 mg DAILY WILLAM Administration Morphine Sulfate 2 - 4 mg 03/07/18 14:20 Morphine Sulfate Inj IVP 03/08/18 14:19 Q2H PRN Pain Ondansetron HCl 4 mg 03/06/18 18:28 Zofran IVP Q6H PRN Nausea &/or vomiting Pharmacy Consult 1 each 03/11/18 15:34 Pharmacy Consult - Fall Risk 03/11/18 15:35 ONE TIME ONE Potassium Chloride 20 meq 03/08/18 21:23 03/08/18 22:08 K-Dur 20 Meq Tablet PO 03/08/18 21:24 20 meq O ONE Administration Potassium Chloride 20 meq 03/09/18 14:33 03/11/18 08:59 K-Dur 20 Meq Tablet PO 20 meq WB WILLAM Administration Tamsulosin HCl 0.4 mg 03/07/18 18:00 03/08/18 19:04 Flomax PO 0.4 mg 1800 WILLAM Administration - Constitutional no acute distress - Routine Respiratory Exam Present: CTA bilaterally - Routine Cardiovascular Exam Present: RRR - Routine Abdominal Exam Present: soft - Routine Extremities Exam Present: no edema (in right lower leg. SCD's on) Comments: unable to palpate pedal pulses, but right foot warm. LAKA - Routine Skin Exam Present: intact Comments: left upper chest incision well approximated. no redness or swelling. - Routine Neurological Exam Present: alert. Absent: normal speech - Routine Psychiatric Exam Present: normal affect, cooperative - Urinary Catheter Management Urethral Cath placed during this visit: yes Urethral indwelling: Yes Insertion date: 03/06/18 Insertion time: 16:15 Results 03/16/18 03:54 03/16/18 03:54 Cardiac Enzymes 03/15/18 Range/Units 03:50 AST 708 H (17-59) U/L CBC 03/15/18 Range/Units 03:50 WBC 16.5 H (4.5-11.0) T/MM3 RBC 3.69 L (4.50-5.90) M/MM3 Hgb 11.9 L (13.5-17.5) GM/DL Hct 36.2 L (41-53) % Plt Count 73 L (130-400) T/MM3 Neut # (Auto) Not performed Lymph # (Auto) Not performed Powell # (Auto) Not performed Eos # (Auto) Not performed Baso # (Auto) Not performed Comprehensive Metabolic Panel 03/15/18 Range/Units 03:50 Sodium 135 (134-144) MEQ/L Potassium 3.5 L D (3.6-5) MEQ/L Chloride 97 L (98-107) MEQ/L Carbon Dioxide 24 (22-30) MEQ/L BUN 121.0 H* (9-20) MG/DL Creatinine 3.3 H D (0.8-1.5) mg/dL Glucose 114 H (75-110) MG/DL Calcium 7.9 L D (8.4-10.2) MG/DL Unconjugated Bilirubin 0.30 (0.00-1.1) mg/dL AST 708 H (17-59) U/L ALT 568 H (1-50) U/L Alkaline Phosphatase 115 (38-126) U/L Total Protein 5.9 L (6.3-8.2) g/dL Albumin 3.2 L (3.5-5.0) g/dL Intake and Output 03/15/18 03/15/18 03/15/18 06:59 14:59 22:59 Intake Total 304.713 / 711.225 8190.270 / 1241.270 688.949 / 688.949 Output Total 455 / 455 555 / 555 356 / 356 Balance -150.287 / -150.287 686.270 / 686.270 332.949 / 332.949 Intake: IV 184.713 / 184.713 183.270 / 183.270 158.949 / 158.949 Milrinone Drip 20 mg In 100 ml 84.713 / 84.713 83.270 / 83.270 58.949 / 58.949 @ 0.375 MCG/KG/MIN 11.295 mls/ hr IV .[id number] [facility] Rx#:[id number] Piperacillin/Tazobactam 2.25 gm 100 / 100 100 / 100 100 / 100 In Ns 100 ml @ 200 mls/hr IV Q8H [facility] Rx#:[id number] Oral 120 / 120 1058 / 1058 530 / 530 Output: Urine Amount (Catheter) 455 / 455 555 / 555 356 / 356 Other: Urine Appearance Clear Sediment Sediment Urine Color Yellow Yellow Yellow Stool Color Brown Brown Stool Consistency Soft Soft Size of Bowel Movement Smear Small Weight 225 lb 8.526 oz Patient Weight 03/16/18 06:59 Weight 225 lb 8.526 oz - EKG Interpretation EKG: sinus rhythm Assessment and Plan - Assessment and Plan (1) Cardiomyopathy Current visit: Yes Status: Chronic (2) HTN (hypertension) Current visit: Yes Status: Chronic (3) CAD (coronary artery disease) Current visit: Yes Status: Chronic (4) CKD (chronic kidney disease) Current visit: Yes Status: Chronic (5) Hyperlipidemia Current visit: Yes Status: Chronic (6) Acute dyspnea Current visit: No Status: Acute (7) Acute systolic CHF (congestive heart failure) Current visit: Yes Status: Acute (8) SVT (supraventricular tachycardia) Current visit: No Status: Acute (9) NSTEMI (non-ST elevated myocardial infarction) Current visit: Yes Status: Acute (10) Acute renal failure superimposed on chronic kidney disease Current visit: Yes Status: Acute - Assessment and Plan 03/12/2018 NSTEMI (non-ST elevated myocardial infarction) - Troponin 1) 0.239, 2) 0.236, 3)0.320 4.)0.412 - WBC trending up VT/ SVT (supraventricular tachycardia) - Continue amiodarone 200 mg PO BID - EKG in am - Bi-V AICD in place - EKG: Sinus Tachycardia, no acute changes - Monitor on tele Acute dyspnea - Presented from [facility] on 4l/NC - RCAT, on 4L per NC this am - CXR no pneumothorax. Mild pulmonary vascular congestion or edema. Acute systolic CHF (congestive heart failure) - Echo: EF 10-15%, severe MR/TR - CXR: mild pulmonary vascular congestion or edema - Cr up to 3.5, BUN 91 - BNP 9080 - Will continue to hold diuresis - Pt admits heavy ETOH consumption 6-12 beers daily for many years prior to one year ago. - Will initiate NS 75 mL/hr x 10 hours - Start dopamine gtt to help perfuse kidneys Cardiomyopathy - Echo: EF 10-15%, severe MR/ TR HTN (hypertension) - Continue Coreg 6.25 mg BID CAD (coronary artery disease) - Heart cath on 03/07/18 revealed coronaries with nonobstructive disease - Continue ASA, BB and statin - Continue Plavix d/t to stent in RLE CKD (chronic kidney disease) - BUN increased to 91/SCr 3.5 (base line 1.6) - Will continue to hold diuresis - Potassium 5.2 - Renal U/S indicated no hydronephrosis or renal mass Hyperlipidemia - Continue Statin Ppx: SQ Heparin PO Ranitidine 03/13/2018 NSTEMI (non-ST elevated myocardial infarction) - Troponin 1) 0.239, 2) 0.236, 3)0.320 4.)0.412 - Likely demand 2/2 respiratory failure/pulmonary edema VT/ SVT (supraventricular tachycardia) - Continue amiodarone 200 mg PO BID - EKG in am - Bi-V AICD in place - EKG: Sinus Tachycardia with LBBB, left axis deviation and supraventricular premature complexes - Monitor on tele Acute dyspnea - Presented from [facility] on 4l/NC - RCAT, continues to need bi-pap intermittently - CXR no pneumothorax. Mild pulmonary vascular congestion or edema. Acute systolic CHF (congestive heart failure) - Echo: EF 10-15%, severe MR/TR - CXR: mild pulmonary vascular congestion or edema - Cr 3.5 yesterday/3.1 today, BUN 91 yesterday/100 today - BNP 9080 - Will continue to hold diuresis - Pt admits heavy ETOH consumption 6-12 beers daily for many years prior to one year ago. - Will initiate NS 75 mL/hr x 10 hours - Will d/c dopamine gtt - Flores to monitor I&O - + FB today - Unable to start JAGDISH/ARB d/t hypotension/CKD Cardiomyopathy - Echo: EF 10-15%, severe MR/ TR - Continue medical therapy - Bi-V AICD in place HTN (hypertension) - Continue Coreg 6.25 mg BID CAD (coronary artery disease) - Heart cath on 03/07/18 revealed coronaries with nonobstructive disease - Continue ASA, BB and statin - Continue Plavix d/t to stent in RLE Acute Renal Failure - BUN 100, Cr 3.1 - Renal U/S indicated no hydronephrosis or renal mass CKD (chronic kidney disease) - Baseline Cr 1.6) - Will continue to hold diuresis - Potassium 4.2 - Mg 2.7 Hyperlipidemia - Continue Statin Ppx: SQ Heparin PO Ranitidine Schizophrenia Depression History of CVA 03/14/18 Dyspnea: CXR: Resolved pulmonary edema. Stable right lower lobe airspace disease. CKD: BUN 118/SCr 3.8 today Transfer to CCU for Milrinone 0.375mcg/kg drip NS at 75mL X 1 liter 03/15/2018 ASHF:. Cr and BUN decreased. Cont milrinone gtt 0.375. - lungs sounds clear and edema not bad in right leg. - s/p BiV/ICD - incision looks good. he is not pacing. A/CKD: recent Cr 3.8 -> 3.3 today and BUN up to 121 today. no diuretic. Hospital Course Summary Disclaimer: The visit summary below is not to be considered part of the above Progress Note. Hospital Course: Impression Leukocytosis Tachycardia Elevated LFTs Cardiomyopathy- with acute systolic failure Non-STEMI V. tach hyperlipidemia Hypertension Coronary artery disease Schizophrenia Depression History of CVA Plan Continued cardiology care as per Dr. Stahl, planning for pacemaker/ defibrillator placement later today. Patient doesn't meet nursing sepsis criteria. Given tachycardia, tachypnea and leukocytosis. All 3 of these may be multifactorial including severe cardiomyopathy and respiratory distress. Will obtain UA, Lactate and Blood cultures, Chest Xray to rule out infectious etiology Given respiratory distress will consult pulmonary, Dr Gibbs for evaluation and recommendations Monitor renal function- known CKD- Lead Investigator 2.2 (Baseline Lead Investigator 1.6) Continues on scheduled Bumex for diuresis- Monitor renal function Appreciate medical consultation. Will continue to follow patient. At time if discharge medical care is to return to PCP in Dr Hilda Self Case discussed with attending, Dr Serna <Jose C Stahl - Last Filed: 03/18/18 08:04> Exam Vital signs: Temperature 97.6 F 03/18/18 04:00 Pulse Rate 85 03/18/18 07:00 Respiratory Rate 21 03/18/18 07:00 Blood Pressure 145/82 H 03/18/18 07:00 Pulse Oximetry 94 03/18/18 07:00 Inpatient Medications: Generic Name Dose Route Start Last Admin Trade Name Freq PRN Reason Stop Dose Admin Acetaminophen 325 - 650 mg 03/07/18 14:20 03/14/18 21:51 Tylenol PO 650 mg Q5H PRN Administration Pain Hydrocodone Bitart/Acetaminophen 1 - 2 tab 03/07/18 14:20 03/17/18 22:37 [place] 5/325 PO 1 tab Q5H PRN Administration Pain Al Hydroxide/Mg Hydroxide 30 ml 03/07/18 14:20 Maalox Plus PO Q3H PRN Indigestion Albuterol Sulfate 2.5 mg 03/12/18 02:04 03/12/18 02:06 Proventil Neb (0.083%) AEROSOL 2.5 mg Q2HR PRN Administration Albuterol/Ipratropium 3 ml 03/10/18 11:00 03/18/18 06:45 Duoneb AEROSOL 3 ml RTQID WILLAM Administration Amiodarone HCl 200 mg 03/08/18 21:25 03/17/18 21:21 Pacerone PO 200 mg BID WILLAM Administration Aspirin 81 mg 03/07/18 09:00 03/17/18 08:28 Ecotrin PO 81 mg DAILY WILLAM Administration Atropine Sulfate 0.5 mg 03/07/18 14:20 Atropine IVP Q5M PRN Bradycardia Bisacodyl 5 - 10 mg 03/07/18 14:20 03/15/18 19:08 Dulcolax PO 5 mg DAILY PRN Administration Constipation Bisacodyl 10 mg 03/07/18 14:20 Dulcolax RECTALLY DAILY PRN Constipation Budesonide/Formoterol Fumarate 2 puff 03/07/18 12:39 03/17/18 19:08 Symbicort Inhaler ORAL INH 2 puff BID [facility] Administration Clopidogrel Bisulfate 75 mg 03/07/18 09:00 03/17/18 08:28 Plavix PO 75 mg DAILY [facility] Administration Docusate Sodium 100 mg 03/07/18 21:00 03/17/18 21:21 Colace PO 100 mg BID WILLAM Administration Docusate Sodium 100 mg 03/07/18 12:50 Colace PO BID PRN Heparin Sodium (Porcine) 5,000 units 03/17/18 17:00 03/18/18 00:01 Heparin Sq SQ 5,000 units Q8HR [facility] Administration Piperacillin Sod/Tazobactam 100 mls @ 200 mls/hr 03/14/18 08:15 03/18/18 01: 00 Sod 2.25 gm/ Sodium Chloride IV Infused Q8H WILLAM Infusion Sodium Chloride 1,000 mls @ 75 mls/hr 03/14/18 15:06 03/14/18 15:40 Normal Saline IV 75 mls/hr .[id number] WILLAM Administration Levothyroxine Sodium 250 mcg 03/08/18 06:30 03/16/18 06:14 Synthroid PO 250 mcg SUSA@0630 WILLAM Administration Levothyroxine Sodium 125 mcg 03/10/18 06:30 03/17/18 05:46 Synthroid PO 125 mcg MOTUWETHFR@0630 WILLAM Administration Lorazepam 0.5 - 1 mg 03/07/18 14:20 03/17/18 22:37 Ativan PO 0.5 mg Q4H PRN Administration Anxiety Lorazepam 0.5 - 1 mg 03/07/18 14:20 03/17/18 02:43 Ativan Inj IVP 0.5 mg Q4H PRN Administration Anxiety Magnesium Hydroxide 30 ml 03/07/18 14:20 03/15/18 20:02 Mom PO 30 ml DAILY PRN Administration Constipation Metoclopramide HCl 5 - 10 mg 03/07/18 14:20 03/13/18 01:47 Reglan IVP 10 mg Q6H PRN Administration Nausea &/or vomiting Minocycline HCl 100 mg 03/11/18 21:00 03/17/18 21:21 Minocin PO 03/18/18 20:59 100 mg BID WILLAM Administration Morphine Sulfate 2 - 4 mg 03/07/18 14:20 Morphine Sulfate Inj IVP Q5M PRN Angina Nitroglycerin 0.4 mg 03/07/18 14:20 Nitrostat SL Q5M PRN Angina Nystatin 5 ml 03/16/18 17:00 03/17/18 21:21 Mycostatin PO 5 ml QID WILLAM Administration Ondansetron HCl 4 mg 03/07/18 14:20 03/17/18 23:37 Zofran IVP 4 mg Q6H PRN Administration Nausea &/or vomiting Polyethylene Glycol 17 gm 03/16/18 09:00 03/17/18 08:27 Miralax PO 17 gm DAILY WILLAM Administration Promethazine HCl 12.5 - 25 mg 03/07/18 14:20 Phenergan Inj IVP Q6HR PRN Nausea &/or vomiting Ranitidine HCl 150 mg 03/07/18 18:00 03/17/18 17:11 Zantac PO 150 mg 1800 WILLAM Administration Sodium Chloride 10 - 80 ml 03/09/18 14:34 03/17/18 02:43 Iv Flush IV 20 ml PRN PRN Administration Flushing Sodium Chloride 10 ml 03/10/18 20:02 Iv Flush IV PRN PRN Flushing Tramadol HCl 50 mg 03/06/18 18:28 03/18/18 01:13 Ultram PO 50 mg Q6H PRN Administration Pain Discontinued Medications Generic Name Dose Route Start Last Admin Trade Name Freq PRN Reason Stop Dose Admin Acetaminophen 650 mg 03/06/18 18:27 Tylenol PO Q5H PRN Pain Adenosine 6 mg 03/06/18 16:02 03/06/18 16:02 Adenocard IVP 03/06/18 16:03 6 mg O ONE Administration Adenosine 12 mg 03/06/18 16:06 03/06/18 16:06 Adenocard IVP 03/06/18 16:07 12 mg O ONE Administration Atorvastatin Calcium 20 mg 03/07/18 18:00 03/10/18 21:34 Lipitor PO Not Given 1800 WILLAM Atorvastatin Calcium 20 mg 03/08/18 21:00 03/15/18 20:02 Lipitor PO 20 mg HS WILLAM Administration Budesonide/Formoterol Fumarate 2 puff 03/07/18 21:00 Symbicort Inhaler ORAL INH BID WILLAM Bumetanide 1 mg 03/06/18 16:09 03/06/18 18:08 Bumex 1 Mg/4 Ml Inj. IVP 03/06/18 16:10 1 mg O ONE Administration Bumetanide 1 mg 03/06/18 16:10 03/06/18 18:09 Bumex 1 Mg/4 Ml Inj. IVP 03/06/18 16:11 1 mg O ONE Administration Bumetanide 1 mg 03/06/18 16:11 03/06/18 16:11 Bumex 1 Mg/4 Ml Inj. IVP 03/06/18 16:12 1 mg O ONE Administration Bumetanide 2 mg 03/07/18 21:00 03/10/18 21:33 Bumex 1 Mg/4 Ml Inj. IVP Not Given QID [facility] Bumetanide 2 mg 03/08/18 15:00 03/09/18 04:06 Bumex 1 Mg/4 Ml Inj. IVP Not Given Q6HR WILLAM Bumetanide 1 mg 03/09/18 09:00 03/10/18 08:16 Bumex 1 Mg/4 Ml Inj. IVP 1 mg BID WILLAM Administration Bumetanide 1 mg 03/09/18 14:33 03/09/18 15:41 Bumex 1 Mg/4 Ml Inj. IVP 03/09/18 14:34 1 mg O ONE Administration Bumetanide 2 mg 03/10/18 16:07 03/10/18 20:15 Bumex 1 Mg Tab PO 2 mg [id number] WILLAM Administration Carvedilol 3.125 mg 03/07/18 10:53 03/10/18 07:52 Coreg PO 3.125 mg BIDWM WILLAM Administration Carvedilol 6.25 mg 03/10/18 16:37 03/13/18 09:29 Coreg PO 6.25 mg BIDWM WILLAM Administration Carvedilol 3.125 mg 03/14/18 09:00 03/17/18 08:28 Coreg PO 3.125 mg BIDWM WILLAM Administration Device 1 each 03/07/18 12:57 03/07/18 12:59 [facility] 03/07/18 12:58 1 each O ONE Administration Furosemide 40 mg 03/16/18 18:23 03/16/18 18:25 Lasix 40 Mg/4 Ml IVP 03/16/18 18:24 40 mg O ONE Administration Furosemide 40 mg 03/16/18 19:04 03/16/18 19:05 Lasix 40 Mg/4 Ml IVP 03/16/18 19:05 40 mg O ONE Administration Heparin Sodium (Beef Lung) 6,000 unit 03/06/18 17:04 03/06/18 17:22 Heparin Bolus IVP 03/06/18 17:05 6,000 unit O ONE Administration Heparin Sodium (Beef Lung) 5,000 unit 03/06/18 22:04 03/06/18 22:10 Heparin Bolus IVP 03/06/18 22:05 5,000 unit O ONE Administration Heparin Sodium (Beef Lung) 2,000 unit 03/07/18 09:00 03/07/18 09:21 Heparin Bolus IVP 03/07/18 09:01 2,000 unit O ONE Administration Heparin Sodium (Porcine) 1 each 03/06/18 16:17 Pharmacy Consult - Heparin 03/06/18 16:18 ONE TIME ONE Heparin Sodium (Porcine) 5,000 units 03/09/18 09:00 03/09/18 21:31 Heparin Sq SQ 5,000 units Q12HR WILLAM Administration Heparin Sodium (Porcine) 5,000 units 03/11/18 09:00 03/14/18 09:26 Heparin Sq SQ 5,000 units Q12HR WILLAM Administration Bumetanide 25 mg/ IV Solution 100 mls @ 2 mls/hr 03/06/18 16:15 03/07/18 18: 19 IV Not Given Q24H WILLAM Heparin Sodium (Porcine) 20,000 unit in 500 mls @ 30 mls/hr 03/06/18 17:05 14:00 Heparin Drip IV Infused .[id number] WILLAM Titration Protocol 1,200 UNIT/HR Amiodarone HCl 900 mg/ Sodium 500 mls @ 16.66 mls/hr 03/07/18 00:31 03/08/18 12:41 Chloride IV Not Given .Q24H WILLAM 0.5 MG/MIN Amiodarone HCl 450 mg/ Sodium 250 mls @ 33.33 mls/hr 03/06/18 18:30 03/07/18 02:11 Chloride IV 03/07/18 00:30 Infused .Q7H31M WILLAM Infusion 1 MG/MIN Amiodarone HCl 150 mg/ Sodium 103 mls @ 618 mls/hr 03/06/18 18:20 03/06/18 19 :59 Chloride IV 03/06/18 18:29 Infused O ONE Infusion Heparin Sodium (Porcine) 20,000 unit in 500 mls @ 35 mls/hr 03/07/18 09:00 09:19 Heparin Drip IV Not Given .[id number] IWLLAM Protocol 1,400 UNIT/HR Sodium Chloride 1,000 mls @ 50 mls/hr 03/07/18 14:30 03/08/18 06:17 Normal Saline IV 03/08/18 00:30 50 mls/hr .Q20H WILLAM Infusion Cefazolin Sodium 1 g/ Sodium 100 mls @ 200 mls/hr 03/11/18 01:00 03/11/18 09: 37 Chloride IV 03/11/18 09:29 Infused Q8HR WILLAM Infusion Dopamine HCl/Dextrose 400 mg in 250 mls @ 7.073 mls/hr 03/12/18 09:46 Dopamine Drip IV .Q24H PRN Protocol 2 MCG/KG/MIN Sodium Chloride 1,000 mls @ 75 mls/hr 03/12/18 10:00 03/13/18 00:44 Normal Saline IV 03/12/18 23:19 Infused .[id number] WILLAM Infusion Dopamine HCl/Dextrose 400 mg in 250 mls @ 7.073 mls/hr 03/12/18 11:15 16:06 Dopamine Drip IV Not Given .Q24H WILLAM Protocol 2 MCG/KG/MIN Vancomycin HCl 1,000 mg/ 250 mls @ 250 mls/hr 03/14/18 08:05 03/14/18 11:38 Sodium Chloride IV 03/14/18 08:06 Infused O ONE Infusion Sodium Chloride 1,000 mls @ 125 mls/hr 03/14/18 08:15 03/14/18 18:24 Normal Saline IV 03/14/18 16:14 Infused .Q8H WILLAM Infusion Milrinone Lactate/Dextrose 20 mg in 100 mls @ 11.295 mls/hr 03/14/18 15:06 03:00 Milrinone Drip Premix IV Infused .Q8H52M WILLAM Infusion Protocol 0.375 MCG/KG/MIN Dopamine HCl/Dextrose 400 mg in 250 mls @ 7.665 mls/hr 03/16/18 15:36 17:50 Dopamine Drip IV Infused .Q24H PRN Titration Protocol 2 MCG/KG/MIN Losartan Potassium 25 mg 03/07/18 11:00 03/08/18 12:50 Cozaar PO 25 mg DAILY WILLAM Administration Magnesium Hydroxide 30 ml 03/07/18 12:50 Mom PO DAILY PRN Constipation Methylprednisolone Sodium Succinate 125 mg 03/16/18 18:29 03/16/18 18:15 Solu-Medrol IVP 03/16/18 18:30 125 mg O ONE Administration Mirabegron 50 mg 03/07/18 09:00 03/08/18 08:38 Myrbetriq PO 50 mg DAILY WILLAM Administration Morphine Sulfate 2 - 4 mg 03/07/18 14:20 Morphine Sulfate Inj IVP 03/08/18 14:19 Q2H PRN Pain Ondansetron HCl 4 mg 03/06/18 18:28 Zofran IVP Q6H PRN Nausea &/or vomiting Pharmacy Consult 1 each 03/11/18 15:34 Pharmacy Consult - Fall Risk 03/11/18 15:35 ONE TIME ONE Potassium Chloride 20 meq 03/08/18 21:23 03/08/18 22:08 K-Dur 20 Meq Tablet PO 03/08/18 21:24 20 meq O ONE Administration Potassium Chloride 20 meq 03/09/18 14:33 03/11/18 08:59 K-Dur 20 Meq Tablet PO 20 meq WB WILLAM Administration Potassium Chloride 40 meq 03/16/18 08:40 03/16/18 09:03 K-Dur 20 Meq Tablet PO 03/16/18 08:41 40 meq O ONE Administration Tamsulosin HCl 0.4 mg 03/07/18 18:00 03/08/18 19:04 Flomax PO 0.4 mg 1800 WILLAM Administration - Urinary Catheter Management Urethral Cath placed during this visit: no Results 03/18/18 04:14 03/18/18 04:14 Cardiac Enzymes 03/18/18 Range/Units 04:14 AST 103 H D (17-59) U/L CBC 03/18/18 Range/Units 04:14 WBC 19.2 H D (4.5-11.0) T/MM3 RBC 3.64 L (4.50-5.90) M/MM3 Hgb 11.9 L (13.5-17.5) GM/DL Hct 35.7 L (41-53) % Plt Count 105 L (130-400) T/MM3 Neut # (Auto) Not performed Lymph # (Auto) Not performed Powell # (Auto) Not performed Eos # (Auto) Not performed Baso # (Auto) Not performed Comprehensive Metabolic Panel 03/18/18 Range/Units 04:14 Sodium 138 (134-144) MEQ/L Potassium 4.0 (3.6-5) MEQ/L Chloride 96 L (98-107) MEQ/L Carbon Dioxide 30 (22-30) MEQ/L BUN 86.0 H* (9-20) MG/DL Creatinine 2.0 H D (0.8-1.5) mg/dL Glucose 297 H (75-110) MG/DL Calcium 8.5 (8.4-10.2) MG/DL AST 103 H D (17-59) U/L ALT 270 H (1-50) U/L Alkaline Phosphatase 97 (38-126) U/L Total Protein 6.3 (6.3-8.2) g/dL Albumin 3.4 L (3.5-5.0) g/dL Intake and Output 03/17/18 03/18/18 03/18/18 22:59 06:59 14:59 Intake Total 290.594 / 290.594 529.406 / 529.406 Output Total 568 / 568 520 / 520 Balance -277.406 / -277.406 9.406 / 9.406 Intake: IV 170.594 / 170.594 129.406 / 129.406 Milrinone Drip 20 mg In 100 ml 70.594 / 70.594 29.406 / 29.406 @ 0.375 MCG/KG/MIN 11.295 mls/ hr IV .Q8H52M [facility] Rx#:[id number] Piperacillin/Tazobactam 2.25 gm 100 / 100 100 / 100 In Ns 100 ml @ 200 mls/hr IV Q8H WILLAM Rx#:[id number] Oral 120 / 120 400 / 400 Output: Urine Amount (Catheter) 568 / 568 520 / 520 Other: Urine Appearance Sediment Sediment Urine Color Yellow Yellow # Incontinent Voids 1 Assessment and Plan - Assessment and Plan (1) Cardiomyopathy Current visit: Yes Status: Chronic (2) HTN (hypertension) Current visit: Yes Status: Chronic (3) CAD (coronary artery disease) Current visit: Yes Status: Chronic (4) CKD (chronic kidney disease) Current visit: Yes Status: Chronic (5) Hyperlipidemia Current visit: Yes Status: Chronic (6) Acute dyspnea Current visit: No Status: Acute (7) Acute systolic CHF (congestive heart failure) Current visit: Yes Status: Acute (8) SVT (supraventricular tachycardia) Current visit: No Status: Acute (9) NSTEMI (non-ST elevated myocardial infarction) Current visit: Yes Status: Acute (10) Acute renal failure superimposed on chronic kidney disease Current visit: Yes Status: Acute - Attestation Attestation Narrative: 03/18/18 08:04 Recommendation After examining the patient I agree with the above assessment. I am involved in the formulation of the patient's plan of care. Hospital Course Summary Disclaimer: The visit summary below is not to be considered part of the above Progress Note.
[2018-03-16] MEDS: PIPERACILLIN/TAZOBACTAM 2.25 GM in NS 100 ML IV SCH ×4 (00:01→23:52)
[2018-03-16] MEDS: MILRINONE DRIP 20 MG/100 ML BAG IV SCH ×4 (03:48→20:34)
[2018-03-16] MEDS: LEVOTHYROXINE 125 MCG TABLET PO SCH (06:14)
[2018-03-16] MEDS: ALBUTEROL/IPRATROPIUM 2.5mg-0.5mg/3ml NEB AEROSOL SCH ×4 (07:00→18:23)
--- NOTE | 2018-03-16 08:08 | Progress Note ---
- Date 03/16/18 Subjective: Mirza is a 57 yr old male with a history of schizophrenia and decreased mental capacity who lives resides at [facility]. He is a patient of Dr. Stahl with a history of NSTEMI and SVT. He was admitted on under the care of Dr. Stahl and had a successful cardioversion of his SVT. He has known severe cardiomyopathy with an EF of 10%. He was scheduled for a pacemaker/defibrillator placement on the day of admission. He has had persistent leukocytosis since admission. Given his continued elevated white count and tachycardia, he did meet sepsis criteria. The hospitalist services were consulted on 03/13/18 for medical evaluation and treatment. Pt developed acute on chronic renal insufficiency. He has been hypotensive. He has had poor urine output. He was transferred to ICU on 03/14/18 for a milrinone gtt. This morning when seen by me he is not his usually happy self. He is complaining of increasing pain and it's difficult to ascertain exactly where the pain is. He complains of discomfort in his right lower extremity. When palpating his abdomen he moans. When I was checking his left upper extremity he also complains of discomfort. The left upper extremity is more swollen than the right. He is thirsty requesting more water. He denies feeling short of breath. He denies chest pain. He has a Flores in place. He had 2 very small bowel movements yesterday. Objective Vital signs: Temperature 96.6 F L 03/16/18 04:00 Pulse Rate 79 03/16/18 07:00 Respiratory Rate 28 H 03/16/18 07:00 Blood Pressure 93/50 03/16/18 07:00 Pulse Oximetry 99 03/16/18 07:00 Height/Weight/BMI: Height 1.73 m Weight 102.3 kg Body Mass Index 35.0 Comments: Gen: More irritable this morning, falls asleep easily but when awake appears to be in mild distress Skin: warm and dry HEENT: NC/AT PERRL, EOMI, Sclera, lids and conjunctiva wnl, MMM, OP clear, poor dentition Neck: supple. No JVD, Carotids 2+ without bruits. Lungs: Diminished. coarse BS. +rales, No wheezes CV: irregular. Tele shows SR with PACs, he did go into atrial fibrillation last evening but self converted. Rates were between 110 and 130s Abd: Tender to palpation left side greater than right side, mild distention and slightly firm. +hypoactive BS MS: left arm one plus edema. Right lower extremity trace edema. Right lower extremity SCD in place. Reasonable strength, Has a Left AKA, No obvious external issues with the right lower leg. Neuro: No focal deficit Psy: more irritable this morning Results - Labs CBC & Chem 7: 03/16/18 03:54 03/16/18 03:54 Assessment and Plan (1) Leukocytosis Current visit: Yes Status: Acute Assessment and Plan: Leukocytosis -Slight downward trend again today -Urine unremarkable, CXR ?Right lower lobe infiltrate, Increased pulm edema, official report pending -Obtain sputum cx-pending collection -No fevers -Mild left shift, no bands-stable -Unsure etiology of his leukocytosis -Blood cx drawn and are pending -Repeat labs in am. -On Zosyn-continue for now -Procal trending down Acute Dyspnea -Presented to [facility] on 4 liters via NC -Up to 6 presently -Requiring BiPAP-tolerating -Dr. Gibbs consulted -Cough+, check sputum-pending collection Mild acidosis with +AG -resolved. VT/SVT S/P cardioversion -Bi V ICD placed on 03/10/18 -On amiodarone 200mg BID -On Beta clarita with hold parameters for BP PAF -Self converted -On amiodarone Elevated LFTs -?Shock liver -Trending down Severe, Dilated, Non ischemic Cardiomyopathy -EF 10% with severe MR -Pt admits heavy ETOH consumption 6-12 beers daily for many years prior to one year ago. -On Coreg with hold parameters for BP -Not on JAGDISH I or ARB due to low normal BP and acute on CKD -Bi V ICD placed Systolic Heart failure [place] [address] -CXR report pending this am Hyperlipidemia -On a statin-hold for now due to elevated LFTs Hypertension -Low normal at present on Coreg 3.125mg BID with hold parameters for BP NSTEMI -HC showing minimal CAD -Likely Type 2 -On ASA and plavix, statin, BBL Mild thrombocytopenia -stable presently -Off heparin prophylaxis PAD -H/O stent to RLE -H/O L AKA -On plavix and ASA Stage III CKD -Creatinine better this am. Still not at baseline (1.6). -Avoid nephrotoxic medications and contrast dye -Diuresis per cardiology -Urine output still marginal, continue to follow -On fluid restriction -Renal U/S unremarkable -Follow labs Hyperkalemia -resolved-now on the low normal side Hypokalemia -Replace and follow Abdominal distention -Denies nausea -Check KUB -Start daily miralax Schizophrenia -resides in [place], will likely go back there on discharge Depression History of CVA Chronic pain -On tramadol Ppx: SCDs on right LE PO Ranitidine Pt has a poor senior living prognosis. DVT Prophylaxis: SCD's - Physician Narrative Narrative: Date: 03/16/18 Time: 0805 Hospital Course Summary Disclaimer: The visit summary below is not to be considered part of the above Progress Note. Hospital Course: Impression Leukocytosis Tachycardia Elevated LFTs Cardiomyopathy- with acute systolic failure Non-STEMI V. tach hyperlipidemia Hypertension Coronary artery disease Schizophrenia Depression History of CVA Plan Continued cardiology care as per Dr. Stahl, planning for pacemaker/ defibrillator placement later today. Patient doesn't meet nursing sepsis criteria. Given tachycardia, tachypnea and leukocytosis. All 3 of these may be multifactorial including severe cardiomyopathy and respiratory distress. Will obtain UA, Lactate and Blood cultures, Chest Xray to rule out infectious etiology Given respiratory distress will consult pulmonary, Dr Gibbs for evaluation and recommendations Monitor renal function- known CKD- Visual Education Teacher 2.2 (Baseline Visual Education Teacher 1.6) Continues on scheduled Bumex for diuresis- Monitor renal function Appreciate medical consultation. Will continue to follow patient. At time if discharge medical care is to return to PCP in Dr Hilda Self Case discussed with attending, Dr Serna
[2018-03-16] MEDS: HYDROCODONE/APAP 5mg/325mg TABLET PO PRN (08:58)
[2018-03-16] MEDS: SALINE FLUSH 10ml SYRINGE IV PRN ×2 (09:01→16:32)
[2018-03-16] MEDS: POLYETHYL GLYCOL 3350 17gm PACKET PO SCH (09:06)
[2018-03-16] MEDS: CLOPIDOGREL 75 MG TABLET PO SCH (09:07)
[2018-03-16] MEDS: ASPIRIN *EC* 81 MG TABLET PO SCH (09:08)
[2018-03-16] MEDS: AMIODARONE 200 MG TABLET PO SCH ×2 (09:08→22:49)
[2018-03-16] MEDS: DOCUSATE SODIUM 100 MG CAPSULE PO SCH ×2 (09:08→22:48)
[2018-03-16] MEDS: CARVEDILOL 3.125 MG TABLET PO SCH ×2 (09:08→17:40)
[2018-03-16] MEDS: MINOCYCLINE 100 MG CAPSULE PO SCH ×2 (09:10→22:48)
--- NOTE | 2018-03-16 09:56 | XRay Report ---
Indication: Abdominal distention PROCEDURE: XR KUB: Encounter: Initial Comparison: None Findings: Airspace disease in the lower lobes. No gross free air on this supine view. Bowel gas pattern is nonobstructive and nonspecific with gas in small and large bowel to the level of the rectum. Right common iliac artery stent. Impression: Probable ileus. .
--- NOTE | 2018-03-16 10:01 | XRay Report ---
Indication: congestion PROCEDURE: XR chest 1V: Encounter: Initial Comparison: March 15, 2018 Findings: Right PICC line remains in place. Overlying monitoring leads. Left pacemaker. Continued airspace disease in the right lower lobe which appears slightly worsened. No other new or worsening infiltrates. Small effusions. No pneumothorax. Cardiomediastinal contours are stable. Impression: Interval worsening in right basilar airspace disease. .
--- NOTE | 2018-03-16 10:12 | XRay Report ---
Indication: Hypoxia PROCEDURE: XR chest 1V: Encounter: Initial Comparison: March 14, 2018 Findings: Support devices are stable. Persistent right lower lobe airspace disease and interstitial prominence. No pneumothorax. Small effusions. Cardiomediastinal contours are stable. Impression: Stable appearance of the chest with right lower lobe airspace disease and mild to moderate edema. .
--- NOTE | 2018-03-16 13:47 | Pulmonology Progress Note ---
Subjective Principal diagnosis: SCHF, NSTEMI Interval history: Pt back in ICU. now on Milrinone drip. worsening pulmonary edema and renal failure. on BIPAP. he is responsive to questions. Exam Vital signs: Temperature 96.8 F 03/16/18 08:30 Pulse Rate 80 03/16/18 11:30 Respiratory Rate 32 H 03/16/18 11:30 Blood Pressure 108/53 03/16/18 11:30 Pulse Oximetry 95 03/16/18 11:30 Inpatient Medications: Generic Name Dose Route Start Last Admin Trade Name Freq PRN Reason Stop Dose Admin Acetaminophen 325 - 650 mg 03/07/18 14:20 03/14/18 21:51 Tylenol PO 650 mg Q5H PRN Administration Pain Hydrocodone Bitart/Acetaminophen 1 - 2 tab 03/07/18 14:20 03/16/18 08:58 [place] 5/325 PO 1 tab Q5H PRN Administration Pain Al Hydroxide/Mg Hydroxide 30 ml 03/07/18 14:20 Maalox Plus PO Q3H PRN Indigestion Albuterol Sulfate 2.5 mg 03/12/18 02:04 03/12/18 02:06 Proventil Neb (0.083%) AEROSOL 2.5 mg Q2HR PRN Administration Albuterol/Ipratropium 3 ml 03/10/18 11:00 03/16/18 11:20 Duoneb AEROSOL 3 ml RTQID WILLAM Administration Amiodarone HCl 200 mg 03/08/18 21:25 03/16/18 09:08 Pacerone PO 200 mg BID WILLAM Administration Aspirin 81 mg 03/07/18 09:00 03/16/18 09:08 Ecotrin PO 81 mg DAILY WILLAM Administration Atropine Sulfate 0.5 mg 03/07/18 14:20 Atropine IVP Q5M PRN Bradycardia Bisacodyl 5 - 10 mg 03/07/18 14:20 03/15/18 19:08 Dulcolax PO 5 mg DAILY PRN Administration Constipation Bisacodyl 10 mg 03/07/18 14:20 Dulcolax RECTALLY DAILY PRN Constipation Budesonide/Formoterol Fumarate 2 puff 03/07/18 12:39 03/16/18 09:30 Symbicort Inhaler ORAL INH 1 puff BID WILLAM Administration Carvedilol 3.125 mg 03/14/18 09:00 03/16/18 09:08 Coreg PO 3.125 mg BIDWM WILLAM Administration Clopidogrel Bisulfate 75 mg 03/07/18 09:00 03/16/18 09:07 Plavix PO 75 mg DAILY WILLAM Administration Docusate Sodium 100 mg 03/07/18 21:00 03/16/18 09:08 Colace PO 100 mg BID WILLAM Administration Docusate Sodium 100 mg 03/07/18 12:50 Colace PO BID PRN Piperacillin Sod/Tazobactam 100 mls @ 200 mls/hr 03/14/18 08:15 03/16/18 10: 00 Sod 2.25 gm/ Sodium Chloride IV Infused Q8H WILLAM Infusion Milrinone Lactate/Dextrose 20 mg in 100 mls @ 11.295 mls/hr 03/14/18 15:06 11:00 Milrinone Drip Premix IV 0.37 mcg/kg/min .[id number] WILLAM 11.3 mls/hr Protocol Infusion 0.375 MCG/KG/MIN Sodium Chloride 1,000 mls @ 75 mls/hr 03/14/18 15:06 03/14/18 15:40 Normal Saline IV 75 mls/hr .[id number] WILLAM Administration Levothyroxine Sodium 250 mcg 03/08/18 06:30 03/16/18 06:14 Synthroid PO 250 mcg SUSA@0630 WILLAM Administration Levothyroxine Sodium 125 mcg 03/10/18 06:30 03/14/18 05:38 Synthroid PO 125 mcg MOTUWETHFR@0630 WILLAM Administration Lorazepam 0.5 - 1 mg 03/07/18 14:20 03/12/18 14:43 Ativan PO 0.5 mg Q4H PRN Administration Anxiety Lorazepam 0.5 - 1 mg 03/07/18 14:20 03/15/18 22:20 Ativan Inj IVP 1 mg Q4H PRN Administration Anxiety Magnesium Hydroxide 30 ml 03/07/18 14:20 03/15/18 20:02 Mom PO 30 ml DAILY PRN Administration Constipation Metoclopramide HCl 5 - 10 mg 03/07/18 14:20 03/13/18 01:47 Reglan IVP 10 mg Q6H PRN Administration Nausea &/or vomiting Minocycline HCl 100 mg 03/11/18 21:00 03/16/18 09:10 Minocin PO 03/18/18 20:59 100 mg BID WILLAM Administration Morphine Sulfate 2 - 4 mg 03/07/18 14:20 Morphine Sulfate Inj IVP Q5M PRN Angina Nitroglycerin 0.4 mg 03/07/18 14:20 Nitrostat SL Q5M PRN Angina Ondansetron HCl 4 mg 03/07/18 14:20 Zofran IVP Q6H PRN Nausea &/or vomiting Polyethylene Glycol 17 gm 03/16/18 09:00 03/16/18 09:06 Miralax PO 17 gm DAILY WILLAM Administration Promethazine HCl 12.5 - 25 mg 03/07/18 14:20 Phenergan Inj IVP Q6HR PRN Nausea &/or vomiting Ranitidine HCl 150 mg 03/07/18 18:00 03/15/18 19:08 Zantac PO 150 mg 1800 WILLAM Administration Sodium Chloride 10 - 80 ml 03/09/18 14:34 03/16/18 09:01 Iv Flush IV 20 ml PRN PRN Administration Flushing Sodium Chloride 10 ml 03/10/18 20:02 Iv Flush IV PRN PRN Flushing Tramadol HCl 50 mg 03/06/18 18:28 03/14/18 14:39 Ultram PO 50 mg Q6H PRN Administration Pain Discontinued Medications Generic Name Dose Route Start Last Admin Trade Name Freq PRN Reason Stop Dose Admin Acetaminophen 650 mg 03/06/18 18:27 Tylenol PO Q5H PRN Pain Adenosine 6 mg 03/06/18 16:02 03/06/18 16:02 Adenocard IVP 03/06/18 16:03 6 mg O ONE Administration Adenosine 12 mg 03/06/18 16:06 03/06/18 16:06 Adenocard IVP 03/06/18 16:07 12 mg O ONE Administration Atorvastatin Calcium 20 mg 03/07/18 18:00 03/10/18 21:34 Lipitor PO Not Given 1800 WILLAM Atorvastatin Calcium 20 mg 03/08/18 21:00 03/15/18 20:02 Lipitor PO 20 mg HS WILLAM Administration Budesonide/Formoterol Fumarate 2 puff 03/07/18 21:00 Symbicort Inhaler ORAL INH BID [facility] Bumetanide 1 mg 03/06/18 16:09 03/06/18 18:08 Bumex 1 Mg/4 Ml Inj. IVP 03/06/18 16:10 1 mg O ONE Administration Bumetanide 1 mg 03/06/18 16:10 03/06/18 18:09 Bumex 1 Mg/4 Ml Inj. IVP 03/06/18 16:11 1 mg O ONE Administration Bumetanide 1 mg 03/06/18 16:11 03/06/18 16:11 Bumex 1 Mg/4 Ml Inj. IVP 03/06/18 16:12 1 mg O ONE Administration Bumetanide 2 mg 03/07/18 21:00 03/10/18 21:33 Bumex 1 Mg/4 Ml Inj. IVP Not Given QID WILLAM Bumetanide 2 mg 03/08/18 15:00 03/09/18 04:06 Bumex 1 Mg/4 Ml Inj. IVP Not Given Q6HR WILLAM Bumetanide 1 mg 03/09/18 09:00 03/10/18 08:16 Bumex 1 Mg/4 Ml Inj. IVP 1 mg BID WILLAM Administration Bumetanide 1 mg 03/09/18 14:33 03/09/18 15:41 Bumex 1 Mg/4 Ml Inj. IVP 03/09/18 14:34 1 mg O ONE Administration Bumetanide 2 mg 03/10/18 16:07 03/10/18 20:15 Bumex 1 Mg Tab PO 2 mg [id number] WILLAM Administration Carvedilol 3.125 mg 03/07/18 10:53 03/10/18 07:52 Coreg PO 3.125 mg BIDWM WILLAM Administration Carvedilol 6.25 mg 03/10/18 16:37 03/13/18 09:29 Coreg PO 6.25 mg BIDWM WILLAM Administration Device 1 each 03/07/18 12:57 03/07/18 12:59 Optichamber MC 03/07/18 12:58 1 each O ONE Administration Heparin Sodium (Beef Lung) 6,000 unit 03/06/18 17:04 03/06/18 17:22 Heparin Bolus IVP 03/06/18 17:05 6,000 unit O ONE Administration Heparin Sodium (Beef Lung) 5,000 unit 03/06/18 22:04 03/06/18 22:10 Heparin Bolus IVP 03/06/18 22:05 5,000 unit O ONE Administration Heparin Sodium (Beef Lung) 2,000 unit 03/07/18 09:00 03/07/18 09:21 Heparin Bolus IVP 03/07/18 09:01 2,000 unit O ONE Administration Heparin Sodium (Porcine) 1 each 03/06/18 16:17 Pharmacy Consult - Heparin 03/06/18 16:18 ONE TIME ONE Heparin Sodium (Porcine) 5,000 units 03/09/18 09:00 03/09/18 21:31 Heparin Sq SQ 5,000 units Q12HR WILLAM Administration Heparin Sodium (Porcine) 5,000 units 03/11/18 09:00 03/14/18 09:26 Heparin Sq SQ 5,000 units Q12HR WILLAM Administration Bumetanide 25 mg/ IV Solution 100 mls @ 2 mls/hr 03/06/18 16:15 03/07/18 18: 19 IV Not Given Q24H WILLAM Heparin Sodium (Porcine) 20,000 unit in 500 mls @ 30 mls/hr 03/06/18 17:05 14:00 Heparin Drip IV Infused .[id number] WILLAM Titration Protocol 1,200 UNIT/HR Amiodarone HCl 900 mg/ Sodium 500 mls @ 16.66 mls/hr 03/07/18 00:31 03/08/18 12:41 Chloride IV Not Given .Q24H WILLAM 0.5 MG/MIN Amiodarone HCl 450 mg/ Sodium 250 mls @ 33.33 mls/hr 03/06/18 18:30 03/07/18 02:11 Chloride IV 03/07/18 00:30 Infused .[id number] WILLAM Infusion 1 MG/MIN Amiodarone HCl 150 mg/ Sodium 103 mls @ 618 mls/hr 03/06/18 18:20 03/06/18 19 :59 Chloride IV 03/06/18 18:29 Infused O ONE Infusion Heparin Sodium (Porcine) 20,000 unit in 500 mls @ 35 mls/hr 03/07/18 09:00 09:19 Heparin Drip IV Not Given .[id number] WILLAM Protocol 1,400 UNIT/HR Sodium Chloride 1,000 mls @ 50 mls/hr 03/07/18 14:30 03/08/18 06:17 Normal Saline IV 03/08/18 00:30 50 mls/hr .Q20H WILLAM Infusion Cefazolin Sodium 1 g/ Sodium 100 mls @ 200 mls/hr 03/11/18 01:00 03/11/18 09: 37 Chloride IV 03/11/18 09:29 Infused Q8HR WILLAM Infusion Dopamine HCl/Dextrose 400 mg in 250 mls @ 7.073 mls/hr 03/12/18 09:46 Dopamine Drip IV .Q24H PRN Protocol 2 MCG/KG/MIN Sodium Chloride 1,000 mls @ 75 mls/hr 03/12/18 10:00 03/13/18 00:44 Normal Saline IV 03/12/18 23:19 Infused .[id number] WILLAM Infusion Dopamine HCl/Dextrose 400 mg in 250 mls @ 7.073 mls/hr 03/12/18 11:15 16:06 Dopamine Drip IV Not Given .Q24H WILLAM Protocol 2 MCG/KG/MIN Vancomycin HCl 1,000 mg/ 250 mls @ 250 mls/hr 03/14/18 08:05 03/14/18 11:38 Sodium Chloride IV 03/14/18 08:06 Infused O ONE Infusion Sodium Chloride 1,000 mls @ 125 mls/hr 03/14/18 08:15 03/14/18 18:24 Normal Saline IV 03/14/18 16:14 Infused .Q8H WILLAM Infusion Losartan Potassium 25 mg 03/07/18 11:00 03/08/18 12:50 Cozaar PO 25 mg DAILY WILLAM Administration Magnesium Hydroxide 30 ml 03/07/18 12:50 Mom PO DAILY PRN Constipation Mirabegron 50 mg 03/07/18 09:00 03/08/18 08:38 Myrbetriq PO 50 mg DAILY WILLAM Administration Morphine Sulfate 2 - 4 mg 03/07/18 14:20 Morphine Sulfate Inj IVP 03/08/18 14:19 Q2H PRN Pain Ondansetron HCl 4 mg 03/06/18 18:28 Zofran IVP Q6H PRN Nausea &/or vomiting Pharmacy Consult 1 each 03/11/18 15:34 Pharmacy Consult - Fall Risk 03/11/18 15:35 ONE TIME ONE Potassium Chloride 20 meq 03/08/18 21:23 03/08/18 22:08 K-Dur 20 Meq Tablet PO 03/08/18 21:24 20 meq O ONE Administration Potassium Chloride 20 meq 03/09/18 14:33 03/11/18 08:59 K-Dur 20 Meq Tablet PO 20 meq WB WILLAM Administration Potassium Chloride 40 meq 03/16/18 08:40 K-Dur 20 Meq Tablet PO 03/16/18 08:41 O ONE Tamsulosin HCl 0.4 mg 03/07/18 18:00 03/08/18 19:04 Flomax PO 0.4 mg 1800 WILLAM Administration - Constitutional no acute distress - Routine HEENT Exam Head: Present: normocephalic, atraumatic Eye: Present: PERRL. Absent: conjunctival icterus - Routine Neck Exam Present: supple - Routine Respiratory Exam Present: decreased breath sounds. Absent: wheezes - Routine Cardiovascular Exam Present: RRR - Routine Abdominal Exam Present: soft. Absent: guarding - Urinary Catheter Management Urethral Cath placed during this visit: yes Urethral indwelling: Yes Insertion date: 03/06/18 Insertion time: 16:15 Results - Laboratory Findings Laboratory: Laboratory Results - last 48 hr 03/15/18 03/15/18 03/15/18 03:50 03:50 03:50 WBC 16.5 H RBC 3.69 L Hgb 11.9 L Hct 36.2 L MCV 98.1 MCH 32.2 MCHC 32.9 RDW Std Deviation 54.6 H Plt Count 73 L MPV 12.6 H Immature Gran % (Auto) Not performed Neut % (Auto) Not performed Lymph % (Auto) Not performed [place] % (Auto) Not performed Eos % (Auto) Not performed Baso % (Auto) Not performed Neut # (Auto) Not performed Lymph # (Auto) Not performed [place] # (Auto) Not performed Eos # (Auto) Not performed Baso # (Auto) Not performed Abs Immat Gran (auto) Not performed Neutrophils % (Manual) 85.0 H Band Neutrophils % 2.0 Lymphocytes % (Manual) 7.0 L Monocytes % (Manual) 5.0 Eosinophils % (Manual) 1.0 Neutrophils # (Manual) 14.0 H Band Neutrophils # 0.3 Lymphocytes # (Manual) 1.2 Monocytes # (Manual) 0.8 Eosinophils # (Manual) 0.2 Nucleated RBCs 1 Polychromasia 1+ Poikilocytosis 1+ Anisocytosis 1+ Tear Drop Cells 1+ Ovalocytes 1+ RBC Morph Comment Abnormal Turbidity < 20 Sodium 135 Potassium 3.5 L D Chloride 97 L Carbon Dioxide 24 Anion Gap 14 BUN 121.0 H* Creatinine 3.3 H D GFR Calculation 19 BUN/Creatinine Ratio 37 H Glucose 114 H Calculated Osmolality 300 H Calcium 7.9 L D Phosphorus 5.1 H Total Bilirubin 1.10 Conjugated Bilirubin 0.00 Unconjugated Bilirubin 0.30 Icterus Index < 2 AST 708 H ALT 568 H Alkaline Phosphatase 115 NT-Pro-B Natriuret Pep 18112 H Total Protein 5.9 L Albumin 3.2 L Globulin 2.7 Albumin/Globulin Ratio 1.2 Procalcitonin 5.44 H* Specimen Hemolysis < 15 03/16/18 03/16/18 03/16/18 03:54 03:54 03:54 WBC 15.5 H RBC 3.54 L Hgb 11.6 L Hct 34.7 L MCV 98.0 MCH 32.8 MCHC 33.4 RDW Std Deviation 54.6 H Plt Count 87 L MPV 12.1 Immature Gran % (Auto) Not performed Neut % (Auto) Not performed Lymph % (Auto) Not performed [place] % (Auto) Not performed Eos % (Auto) Not performed Baso % (Auto) Not performed Neut # (Auto) Not performed Lymph # (Auto) Not performed [place] # (Auto) Not performed Eos # (Auto) Not performed Baso # (Auto) Not performed Abs Immat Gran (auto) Not performed Neutrophils % (Manual) 85.0 H Band Neutrophils % 2.0 Lymphocytes % (Manual) 5.0 L Monocytes % (Manual) 3.0 Eosinophils % (Manual) 5.0 H Neutrophils # (Manual) 13.2 H Band Neutrophils # 0.3 Lymphocytes # (Manual) 0.8 L Monocytes # (Manual) 0.5 Eosinophils # (Manual) 0.8 H Nucleated RBCs Polychromasia Poikilocytosis Anisocytosis Tear Drop Cells Ovalocytes 1+ RBC Morph Comment Abnormal Turbidity < 20 Sodium 136 Potassium 3.4 L Chloride 97 L Carbon Dioxide 27 Anion Gap 12 BUN 115.0 H* Creatinine 2.8 H D GFR Calculation 24 BUN/Creatinine Ratio 41 H Glucose 123 H Calculated Osmolality 300 H Calcium 7.8 L Phosphorus 4.8 H Total Bilirubin 1.10 Conjugated Bilirubin 0.00 Unconjugated Bilirubin 0.30 Icterus Index < 2 AST 271 H D ALT 396 H Alkaline Phosphatase 103 NT-Pro-B Natriuret Pep Total Protein 5.8 L Albumin 3.0 L Globulin 2.8 Albumin/Globulin Ratio 1.1 Procalcitonin 4.17 H* Specimen Hemolysis < 15 - Diagnostic Findings Chest x-ray: report reviewed, image reviewed Assessment and Plan (1) Acute respiratory failure with hypoxemia Status: Acute Assessment and plan: Still requiring bipap /, rate 12 using BIPAP again due to worsening pulmonary edema, decompensated CHF, renal failure due to cardiorenal syndrome Current Visit: Yes (2) COPD (chronic obstructive pulmonary disease) Status: Acute Assessment and plan: Budesonide/formoterol BID (Symbicort), neb albuterol/iprat as needed O2 to keep sat > 90% Current Visit: Yes - Assessment and Plan Acute Hypoxic respiratory Failure COPD Pulmonary edema Nonischemic Cardiomyopathy/systolic HF EF 10-15% VHD svere MR/TR Vtach NSTEM JIMMIE on CKD (Baseline Ctrs 1.6) - Time Spent With Patient Total time spent is greater than 50% in coordination of care (as documented) at patient's floor/unit and/or counseling patient: less than 15 minutes
--- NOTE | 2018-03-16 14:47 | Cardiology Progress Note ---
<FelibertoAntoinette T - Last Filed: 03/16/18 15:38> Subjective Principal diagnosis: SCHF, NSTEMI Interval history: Mirza is seen in follow up for NSTEMI, SVT, and sustained VT that required cardioversion at bedside. He is lying in bed, with parents at the bedside, on He denies chest pain or SOB. His right lower leg does not appear edematous. He states his right leg and throat hurts. looks like he may have thrush on tongue. Exam Vital signs: Temperature 96.8 F 03/16/18 08:30 Pulse Rate 80 03/16/18 11:30 Respiratory Rate 32 H 03/16/18 11:30 Blood Pressure 108/53 03/16/18 11:30 Pulse Oximetry 95 03/16/18 11:30 Inpatient Medications: Generic Name Dose Route Start Last Admin Trade Name Freq PRN Reason Stop Dose Admin Acetaminophen 325 - 650 mg 03/07/18 14:20 03/14/18 21:51 Tylenol PO 650 mg Q5H PRN Administration Pain Hydrocodone Bitart/Acetaminophen 1 - 2 tab 03/07/18 14:20 03/16/18 08:58 [place] 5/325 PO 1 tab Q5H PRN Administration Pain Al Hydroxide/Mg Hydroxide 30 ml 03/07/18 14:20 Maalox Plus PO Q3H PRN Indigestion Albuterol Sulfate 2.5 mg 03/12/18 02:04 03/12/18 02:06 Proventil Neb (0.083%) AEROSOL 2.5 mg Q2HR PRN Administration Albuterol/Ipratropium 3 ml 03/10/18 11:00 03/16/18 11:20 Duoneb AEROSOL 3 ml RTQID WILLAM Administration Amiodarone HCl 200 mg 03/08/18 21:25 03/16/18 09:08 Pacerone PO 200 mg BID WILLAM Administration Aspirin 81 mg 03/07/18 09:00 03/16/18 09:08 Ecotrin PO 81 mg DAILY WILLAM Administration Atropine Sulfate 0.5 mg 03/07/18 14:20 Atropine IVP Q5M PRN Bradycardia Bisacodyl 5 - 10 mg 03/07/18 14:20 03/15/18 19:08 Dulcolax PO 5 mg DAILY PRN Administration Constipation Bisacodyl 10 mg 03/07/18 14:20 Dulcolax RECTALLY DAILY PRN Constipation Budesonide/Formoterol Fumarate 2 puff 03/07/18 12:39 03/16/18 09:30 Symbicort Inhaler ORAL INH 1 puff BID WILLAM Administration Carvedilol 3.125 mg 03/14/18 09:00 03/16/18 09:08 Coreg PO 3.125 mg BIDWM WILLAM Administration Clopidogrel Bisulfate 75 mg 03/07/18 09:00 03/16/18 09:07 Plavix PO 75 mg DAILY WILLAM Administration Docusate Sodium 100 mg 03/07/18 21:00 03/16/18 09:08 Colace PO 100 mg BID WILLAM Administration Docusate Sodium 100 mg 03/07/18 12:50 Colace PO BID PRN Piperacillin Sod/Tazobactam 100 mls @ 200 mls/hr 03/14/18 08:15 03/16/18 10: 00 Sod 2.25 gm/ Sodium Chloride IV Infused Q8H WILLAM Infusion Milrinone Lactate/Dextrose 20 mg in 100 mls @ 11.295 mls/hr 03/14/18 15:06 14:33 Milrinone Drip Premix IV 0.37 mcg/kg/min .[id number] WILLAM 11.3 mls/hr Protocol Administration 0.375 MCG/KG/MIN Sodium Chloride 1,000 mls @ 75 mls/hr 03/14/18 15:06 03/14/18 15:40 Normal Saline IV 75 mls/hr .[id number] WILLAM Administration Levothyroxine Sodium 250 mcg 03/08/18 06:30 03/16/18 06:14 Synthroid PO 250 mcg SUSA@0630 WILLAM Administration Levothyroxine Sodium 125 mcg 03/10/18 06:30 03/14/18 05:38 Synthroid PO 125 mcg MOTUWETHFR@0630 WILLAM Administration Lorazepam 0.5 - 1 mg 03/07/18 14:20 03/12/18 14:43 Ativan PO 0.5 mg Q4H PRN Administration Anxiety Lorazepam 0.5 - 1 mg 03/07/18 14:20 03/15/18 22:20 Ativan Inj IVP 1 mg Q4H PRN Administration Anxiety Magnesium Hydroxide 30 ml 03/07/18 14:20 03/15/18 20:02 Mom PO 30 ml DAILY PRN Administration Constipation Metoclopramide HCl 5 - 10 mg 03/07/18 14:20 03/13/18 01:47 Reglan IVP 10 mg Q6H PRN Administration Nausea &/or vomiting Minocycline HCl 100 mg 03/11/18 21:00 03/16/18 09:10 Minocin PO 03/18/18 20:59 100 mg BID WILLAM Administration Morphine Sulfate 2 - 4 mg 03/07/18 14:20 Morphine Sulfate Inj IVP Q5M PRN Angina Nitroglycerin 0.4 mg 03/07/18 14:20 Nitrostat SL Q5M PRN Angina Ondansetron HCl 4 mg 03/07/18 14:20 Zofran IVP Q6H PRN Nausea &/or vomiting Polyethylene Glycol 17 gm 03/16/18 09:00 03/16/18 09:06 Miralax PO 17 gm DAILY WILLAM Administration Promethazine HCl 12.5 - 25 mg 03/07/18 14:20 Phenergan Inj IVP Q6HR PRN Nausea &/or vomiting Ranitidine HCl 150 mg 03/07/18 18:00 03/15/18 19:08 Zantac PO 150 mg 1800 WILLAM Administration Sodium Chloride 10 - 80 ml 03/09/18 14:34 03/16/18 09:01 Iv Flush IV 20 ml PRN PRN Administration Flushing Sodium Chloride 10 ml 03/10/18 20:02 Iv Flush IV PRN PRN Flushing Tramadol HCl 50 mg 03/06/18 18:28 03/14/18 14:39 Ultram PO 50 mg Q6H PRN Administration Pain Discontinued Medications Generic Name Dose Route Start Last Admin Trade Name Freq PRN Reason Stop Dose Admin Acetaminophen 650 mg 03/06/18 18:27 Tylenol PO Q5H PRN Pain Adenosine 6 mg 03/06/18 16:02 03/06/18 16:02 Adenocard IVP 03/06/18 16:03 6 mg O ONE Administration Adenosine 12 mg 03/06/18 16:06 03/06/18 16:06 Adenocard IVP 03/06/18 16:07 12 mg O ONE Administration Atorvastatin Calcium 20 mg 03/07/18 18:00 03/10/18 21:34 Lipitor PO Not Given 1800 WILLAM Atorvastatin Calcium 20 mg 03/08/18 21:00 03/15/18 20:02 Lipitor PO 20 mg HS WILLAM Administration Budesonide/Formoterol Fumarate 2 puff 03/07/18 21:00 Symbicort Inhaler ORAL INH BID WILLAM Bumetanide 1 mg 03/06/18 16:09 03/06/18 18:08 Bumex 1 Mg/4 Ml Inj. IVP 03/06/18 16:10 1 mg O ONE Administration Bumetanide 1 mg 03/06/18 16:10 03/06/18 18:09 Bumex 1 Mg/4 Ml Inj. IVP 03/06/18 16:11 1 mg O ONE Administration Bumetanide 1 mg 03/06/18 16:11 03/06/18 16:11 Bumex 1 Mg/4 Ml Inj. IVP 03/06/18 16:12 1 mg O ONE Administration Bumetanide 2 mg 03/07/18 21:00 03/10/18 21:33 Bumex 1 Mg/4 Ml Inj. IVP Not Given QID [facility] Bumetanide 2 mg 03/08/18 15:00 03/09/18 04:06 Bumex 1 Mg/4 Ml Inj. IVP Not Given Q6HR [facility] Bumetanide 1 mg 03/09/18 09:00 03/10/18 08:16 Bumex 1 Mg/4 Ml Inj. IVP 1 mg BID WILLAM Administration Bumetanide 1 mg 03/09/18 14:33 03/09/18 15:41 Bumex 1 Mg/4 Ml Inj. IVP 03/09/18 14:34 1 mg O ONE Administration Bumetanide 2 mg 03/10/18 16:07 03/10/18 20:15 Bumex 1 Mg Tab PO 2 mg [id number] WILLAM Administration Carvedilol 3.125 mg 03/07/18 10:53 03/10/18 07:52 Coreg PO 3.125 mg BIDWM WILLAM Administration Carvedilol 6.25 mg 03/10/18 16:37 03/13/18 09:29 Coreg PO 6.25 mg BIDWM WILLAM Administration Device 1 each 03/07/18 12:57 03/07/18 12:59 Optichamber MC 03/07/18 12:58 1 each O ONE Administration Heparin Sodium (Beef Lung) 6,000 unit 03/06/18 17:04 03/06/18 17:22 Heparin Bolus IVP 03/06/18 17:05 6,000 unit O ONE Administration Heparin Sodium (Beef Lung) 5,000 unit 03/06/18 22:04 03/06/18 22:10 Heparin Bolus IVP 03/06/18 22:05 5,000 unit O ONE Administration Heparin Sodium (Beef Lung) 2,000 unit 03/07/18 09:00 03/07/18 09:21 Heparin Bolus IVP 03/07/18 09:01 2,000 unit O ONE Administration Heparin Sodium (Porcine) 1 each 03/06/18 16:17 Pharmacy Consult - Heparin 03/06/18 16:18 ONE TIME ONE Heparin Sodium (Porcine) 5,000 units 03/09/18 09:00 03/09/18 21:31 Heparin Sq SQ 5,000 units Q12HR WILLAM Administration Heparin Sodium (Porcine) 5,000 units 03/11/18 09:00 03/14/18 09:26 Heparin Sq SQ 5,000 units Q12HR WILLAM Administration Bumetanide 25 mg/ IV Solution 100 mls @ 2 mls/hr 03/06/18 16:15 03/07/18 18: 19 IV Not Given Q24H WILLAM Heparin Sodium (Porcine) 20,000 unit in 500 mls @ 30 mls/hr 03/06/18 17:05 14:00 Heparin Drip IV Infused .[id number] WILLAM Titration Protocol 1,200 UNIT/HR Amiodarone HCl 900 mg/ Sodium 500 mls @ 16.66 mls/hr 03/07/18 00:31 03/08/18 12:41 Chloride IV Not Given .Q24H WILLAM 0.5 MG/MIN Amiodarone HCl 450 mg/ Sodium 250 mls @ 33.33 mls/hr 03/06/18 18:30 03/07/18 02:11 Chloride IV 03/07/18 00:30 Infused .[id number] WILLAM Infusion 1 MG/MIN Amiodarone HCl 150 mg/ Sodium 103 mls @ 618 mls/hr 03/06/18 18:20 03/06/18 19 :59 Chloride IV 03/06/18 18:29 Infused O ONE Infusion Heparin Sodium (Porcine) 20,000 unit in 500 mls @ 35 mls/hr 03/07/18 09:00 09:19 Heparin Drip IV Not Given .[id number] WILLAM Protocol 1,400 UNIT/HR Sodium Chloride 1,000 mls @ 50 mls/hr 03/07/18 14:30 03/08/18 06:17 Normal Saline IV 03/08/18 00:30 50 mls/hr .Q20H WILLAM Infusion Cefazolin Sodium 1 g/ Sodium 100 mls @ 200 mls/hr 03/11/18 01:00 03/11/18 09: 37 Chloride IV 03/11/18 09:29 Infused Q8HR WILLAM Infusion Dopamine HCl/Dextrose 400 mg in 250 mls @ 7.073 mls/hr 03/12/18 09:46 Dopamine Drip IV .Q24H PRN Protocol 2 MCG/KG/MIN Sodium Chloride 1,000 mls @ 75 mls/hr 03/12/18 10:00 03/13/18 00:44 Normal Saline IV 03/12/18 23:19 Infused .[id number] WILLAM Infusion Dopamine HCl/Dextrose 400 mg in 250 mls @ 7.073 mls/hr 03/12/18 11:15 16:06 Dopamine Drip IV Not Given .Q24H WILLAM Protocol 2 MCG/KG/MIN Vancomycin HCl 1,000 mg/ 250 mls @ 250 mls/hr 03/14/18 08:05 03/14/18 11:38 Sodium Chloride IV 03/14/18 08:06 Infused O ONE Infusion Sodium Chloride 1,000 mls @ 125 mls/hr 03/14/18 08:15 03/14/18 18:24 Normal Saline IV 03/14/18 16:14 Infused .Q8H WILLAM Infusion Losartan Potassium 25 mg 03/07/18 11:00 03/08/18 12:50 Cozaar PO 25 mg DAILY WILLAM Administration Magnesium Hydroxide 30 ml 03/07/18 12:50 Mom PO DAILY PRN Constipation Mirabegron 50 mg 03/07/18 09:00 03/08/18 08:38 Myrbetriq PO 50 mg DAILY WILLAM Administration Morphine Sulfate 2 - 4 mg 03/07/18 14:20 Morphine Sulfate Inj IVP 04/21/18 14:19 Q2H PRN Pain Ondansetron HCl 4 mg 03/06/18 18:28 Zofran IVP Q6H PRN Nausea &/or vomiting Pharmacy Consult 1 each 03/11/18 15:34 Pharmacy Consult - Fall Risk MC 03/11/18 15:35 ONE TIME ONE Potassium Chloride 20 meq 03/08/18 21:23 03/08/18 22:08 K-Dur 20 Meq Tablet PO 03/08/18 21:24 20 meq O ONE Administration Potassium Chloride 20 meq 03/09/18 14:33 03/11/18 08:59 K-Dur 20 Meq Tablet PO 20 meq WB WILLAM Administration Potassium Chloride 40 meq 03/16/18 08:40 03/16/18 09:03 K-Dur 20 Meq Tablet PO 03/16/18 08:41 40 meq O ONE Administration Tamsulosin HCl 0.4 mg 03/07/18 18:00 03/08/18 19:04 Flomax PO 0.4 mg 1800 WILLAM Administration - Constitutional no acute distress, well nourished, cooperative - Routine HEENT Exam Head: Present: normocephalic, atraumatic Comments: some redness on face. - Routine Neck Exam Absent: JVD - Routine Respiratory Exam Present: CTA bilaterally - Routine Cardiovascular Exam Present: RRR - Routine Abdominal Exam Present: non tender, distended - Routine Exam Comments: mcintyre - Routine Extremities Exam Present: edema (mild in upper extremities. ), no edema (in right lower leg. ) Comments: unable to palpate pedal pulse in right leg, but foot is warm. no sores. Left AKA - Routine Skin Exam Present: intact, dry - Routine Neurological Exam Present: alert, vision grossly intact, hearing grossly intact He follows directions. But he mumbles. - Routine Psychiatric Exam Present: cooperative. Absent: good insight, good judgment - Urinary Catheter Management Urethral Cath placed during this visit: yes Urethral indwelling: Yes Insertion date: 03/06/18 Insertion time: 16:15 Results 03/16/18 03:54 03/16/18 03:54 Cardiac Enzymes 03/16/18 Range/Units 03:54 AST 271 H D (17-59) U/L CBC 03/16/18 Range/Units 03:54 WBC 15.5 H (4.5-11.0) T/MM3 RBC 3.54 L (4.50-5.90) M/MM3 Hgb 11.6 L (13.5-17.5) GM/DL Hct 34.7 L (41-53) % Plt Count 87 L (130-400) T/MM3 Neut # (Auto) Not performed Lymph # (Auto) Not performed [place] # (Auto) Not performed Eos # (Auto) Not performed Baso # (Auto) Not performed Comprehensive Metabolic Panel 03/16/18 Range/Units 03:54 Sodium 136 (134-144) MEQ/L Potassium 3.4 L (3.6-5) MEQ/L Chloride 97 L (98-107) MEQ/L Carbon Dioxide 27 (22-30) MEQ/L BUN 115.0 H* (9-20) MG/DL Creatinine 2.8 H D (0.8-1.5) mg/dL Glucose 123 H (75-110) MG/DL Calcium 7.8 L (8.4-10.2) MG/DL Unconjugated Bilirubin 0.30 (0.00-1.1) mg/dL AST 271 H D (17-59) U/L ALT 396 H (1-50) U/L Alkaline Phosphatase 103 (38-126) U/L Total Protein 5.8 L (6.3-8.2) g/dL Albumin 3.0 L (3.5-5.0) g/dL Intake and Output 03/15/18 03/16/18 03/16/18 22:59 06:59 14:59 Intake Total 761.549 / 761.549 375.328 / 375.328 605.140 / 605.140 Output Total 561 / 561 370 / 370 324 / 324 Balance 200.549 / 200.549 5.328 / 5.328 281.140 / 281.140 Intake: IV 181.549 / 181.549 175.328 / 175.328 175.140 / 175.140 Milrinone Drip 20 mg In 100 ml 81.549 / 81.549 75.328 / 75.328 75.14 / 75.14 @ 0.375 MCG/KG/MIN 11.295 mls/ hr IV .Q8H52M [facility] Rx#:[id number] Piperacillin/Tazobactam 2.25 gm 100 / 100 100 / 100 100.000 / 100.000 In Ns 100 ml @ 200 mls/hr IV Q8H [facility] Rx#:[id number] Oral 580 / 580 200 / 200 430 / 430 Output: Urine Amount (Catheter) 561 / 561 370 / 370 324 / 324 Other: Urine Appearance Clear Clear Sediment Urine Color Yellow Yellow Bright Yellow Stool Color Brown Brown Brown Stool Consistency Soft Soft Soft Formed Size of Bowel Movement Small Small Large # Bowel Movements 1 1 Weight 225 lb 4.999 oz Patient Weight 03/17/18 06:59 Weight 225 lb 4.999 oz - Imaging and Cardiology Imaging & Cardiology Narrative: 03/16/18 CXR Findings: Right PICC line remains in place. Overlying monitoring leads. Left pacemaker. Continued airspace disease in the right lower lobe which appears slightly worsened. No other new or worsening infiltrates. Small effusions. No pneumothorax. Cardiomediastinal contours are stable. Impression: Interval worsening in right basilar airspace disease. Assessment and Plan - Assessment and Plan (1) Cardiomyopathy Current visit: Yes Status: Chronic (2) HTN (hypertension) Current visit: Yes Status: Chronic (3) CAD (coronary artery disease) Current visit: Yes Status: Chronic (4) CKD (chronic kidney disease) Current visit: Yes Status: Chronic (5) Hyperlipidemia Current visit: Yes Status: Chronic (6) Acute dyspnea Current visit: No Status: Acute (7) Acute systolic CHF (congestive heart failure) Current visit: Yes Status: Acute (8) SVT (supraventricular tachycardia) Current visit: No Status: Acute (9) NSTEMI (non-ST elevated myocardial infarction) Current visit: Yes Status: Acute (10) Acute renal failure superimposed on chronic kidney disease Current visit: Yes Status: Acute - Assessment and Plan 03/12/2018 NSTEMI (non-ST elevated myocardial infarction) - Troponin 1) 0.239, 2) 0.236, 3)0.320 4.)0.412 - WBC trending up VT/ SVT (supraventricular tachycardia) - Continue amiodarone 200 mg PO BID - EKG in am - Bi-V AICD in place - EKG: Sinus Tachycardia, no acute changes - Monitor on tele Acute dyspnea - Presented from [facility] on 4l/NC - RCAT, on 4L per NC this am - CXR no pneumothorax. Mild pulmonary vascular congestion or edema. Acute systolic CHF (congestive heart failure) - Echo: EF 10-15%, severe MR/TR - CXR: mild pulmonary vascular congestion or edema - Cr up to 3.5, BUN 91 - BNP 9080 - Will continue to hold diuresis - Pt admits heavy ETOH consumption 6-12 beers daily for many years prior to one year ago. - Will initiate NS 75 mL/hr x 10 hours - Start dopamine gtt to help perfuse kidneys Cardiomyopathy - Echo: EF 10-15%, severe MR/ TR HTN (hypertension) - Continue Coreg 6.25 mg BID CAD (coronary artery disease) - Heart cath on 03/07/18 revealed coronaries with nonobstructive disease - Continue ASA, BB and statin - Continue Plavix d/t to stent in RLE CKD (chronic kidney disease) - BUN increased to 91/SCr 3.5 (base line 1.6) - Will continue to hold diuresis - Potassium 5.2 - Renal U/S indicated no hydronephrosis or renal mass Hyperlipidemia - Continue Statin Ppx: SQ Heparin PO Ranitidine 03/13/2018 NSTEMI (non-ST elevated myocardial infarction) - Troponin 1) 0.239, 2) 0.236, 3)0.320 4.)0.412 - Likely demand 2/2 respiratory failure/pulmonary edema VT/ SVT (supraventricular tachycardia) - Continue amiodarone 200 mg PO BID - EKG in am - Bi-V AICD in place - EKG: Sinus Tachycardia with LBBB, left axis deviation and supraventricular premature complexes - Monitor on tele Acute dyspnea - Presented from [facility] on 4l/NC - RCAT, continues to need bi-pap intermittently - CXR no pneumothorax. Mild pulmonary vascular congestion or edema. Acute systolic CHF (congestive heart failure) - Echo: EF 10-15%, severe MR/TR - CXR: mild pulmonary vascular congestion or edema - Cr 3.5 yesterday/3.1 today, BUN 91 yesterday/100 today - BNP 9080 - Will continue to hold diuresis - Pt admits heavy ETOH consumption 6-12 beers daily for many years prior to one year ago. - Will initiate NS 75 mL/hr x 10 hours - Will d/c dopamine gtt - Mcintyre to monitor I&O - + FB today - Unable to start JAGDISH/ARB d/t hypotension/CKD Cardiomyopathy - Echo: EF 10-15%, severe MR/ TR - Continue medical therapy - Bi-V AICD in place HTN (hypertension) - Continue Coreg 6.25 mg BID CAD (coronary artery disease) - Heart cath on 03/07/18 revealed coronaries with nonobstructive disease - Continue ASA, BB and statin - Continue Plavix d/t to stent in RLE Acute Renal Failure - BUN 100, Cr 3.1 - Renal U/S indicated no hydronephrosis or renal mass CKD (chronic kidney disease) - Baseline Cr 1.6) - Will continue to hold diuresis - Potassium 4.2 - Mg 2.7 Hyperlipidemia - Continue Statin Ppx: SQ Heparin PO Ranitidine 03/14/18 Dyspnea: CXR: Resolved pulmonary edema. Stable right lower lobe airspace disease. CKD: BUN 118/SCr 3.8 today Transfer to CCU for Milrinone 0.375mcg/kg drip NS at 75mL X 1 liter 03/15/2018 [facility]: CXR: increased pulmonary edema. Cr and BUN decreased. Cont milrinone gtt 0.375. - lungs sounds clear and edema not bad in right leg. - s/p BiV/ICD - incision looks good. he is not pacing. A/CKD: recent Cr 3.8 -> 3.3 today and BUN up to 121 today. no diuretic. 03/16/2018 [facility]: CXR: increased pulmonary edema. Cr and BUN decreased. Cont milrinone gtt 0.375. - lungs sounds clear and edema not bad in right lower leg. - U/O ave 40-60 this morning. U/O 30 ml/hr this afternoon. - add dopamine 2 mcg/kg/min to increase perfusion to kidneys and improve U/ O. - s/p BiV/ICD - incision looks good. he is not paced - Coreg held the last 2 mornings due to low BP. A/CKD: recent Cr 3.8 -> 3.3 -> 2.8 today and BUN down to 115 today. no diuretic. NSTEMI T2 s/p HC: no significant CAD. Cont ASa and Plavix. Thrush: add Nystatin swish and swallow. Hospital Course Summary Disclaimer: The visit summary below is not to be considered part of the above Progress Note. Hospital Course: Impression Leukocytosis Tachycardia Elevated LFTs Cardiomyopathy- with acute systolic failure Non-STEMI V. tach hyperlipidemia Hypertension Coronary artery disease Schizophrenia Depression History of CVA Plan Continued cardiology care as per Dr. Stahl, planning for pacemaker/ defibrillator placement later today. Patient doesn't meet nursing sepsis criteria. Given tachycardia, tachypnea and leukocytosis. All 3 of these may be multifactorial including severe cardiomyopathy and respiratory distress. Will obtain UA, Lactate and Blood cultures, Chest Xray to rule out infectious etiology Given respiratory distress will consult pulmonary, Dr Gibbs for evaluation and recommendations Monitor renal function- known CKD- Energy Conservation Technician 2.2 (Baseline Energy Conservation Technician 1.6) Continues on scheduled Bumex for diuresis- Monitor renal function Appreciate medical consultation. Will continue to follow patient. At time if discharge medical care is to return to PCP in Dr Hilda Self Case discussed with attending, Dr Serna <Jose C Stahl - Last Filed: 03/18/18 08:06> Exam Vital signs: Temperature 97.6 F 03/18/18 04:00 Pulse Rate 85 03/18/18 07:00 Respiratory Rate 21 03/18/18 07:00 Blood Pressure 145/82 H 03/18/18 07:00 Pulse Oximetry 94 03/18/18 07:00 Inpatient Medications: Generic Name Dose Route Start Last Admin Trade Name Freq PRN Reason Stop Dose Admin Acetaminophen 325 - 650 mg 03/07/18 14:20 03/14/18 21:51 Tylenol PO 650 mg Q5H PRN Administration Pain Hydrocodone Bitart/Acetaminophen 1 - 2 tab 03/07/18 14:20 03/17/18 22:37 [place] 5/325 PO 1 tab Q5H PRN Administration Pain Al Hydroxide/Mg Hydroxide 30 ml 03/07/18 14:20 Maalox Plus PO Q3H PRN Indigestion Albuterol Sulfate 2.5 mg 03/12/18 02:04 03/12/18 02:06 Proventil Neb (0.083%) AEROSOL 2.5 mg Q2HR PRN Administration Albuterol/Ipratropium 3 ml 03/10/18 11:00 03/18/18 06:45 Duoneb AEROSOL 3 ml RTQID WILLAM Administration Amiodarone HCl 200 mg 03/08/18 21:25 03/18/18 08:00 Pacerone PO 200 mg BID WILLAM Administration Aspirin 81 mg 03/07/18 09:00 03/18/18 08:00 Ecotrin PO 81 mg DAILY WILLAM Administration Atropine Sulfate 0.5 mg 03/07/18 14:20 Atropine IVP Q5M PRN Bradycardia Bisacodyl 5 - 10 mg 03/07/18 14:20 03/15/18 19:08 Dulcolax PO 5 mg DAILY PRN Administration Constipation Bisacodyl 10 mg 03/07/18 14:20 Dulcolax RECTALLY DAILY PRN Constipation Budesonide/Formoterol Fumarate 2 puff 03/07/18 12:39 03/17/18 19:08 Symbicort Inhaler ORAL INH 2 puff BID WILLAM Administration Clopidogrel Bisulfate 75 mg 03/07/18 09:00 03/18/18 08:00 Plavix PO 75 mg DAILY WILLAM Administration Docusate Sodium 100 mg 03/07/18 21:00 03/18/18 08:01 Colace PO 100 mg BID WILLAM Administration Docusate Sodium 100 mg 03/07/18 12:50 Colace PO BID PRN Heparin Sodium (Porcine) 5,000 units 03/17/18 17:00 03/18/18 08:01 Heparin Sq SQ 5,000 units Q8HR WILLAM Administration Piperacillin Sod/Tazobactam 100 mls @ 200 mls/hr 03/14/18 08:15 03/18/18 08: 01 Sod 2.25 gm/ Sodium Chloride IV 200 mls/hr Q8H WILLAM Administration Sodium Chloride 1,000 mls @ 75 mls/hr 03/14/18 15:06 03/14/18 15:40 Normal Saline IV 75 mls/hr .[id number] WILLAM Administration Levothyroxine Sodium 250 mcg 03/08/18 06:30 03/16/18 06:14 Synthroid PO 250 mcg SUSA@0630 WILLAM Administration Levothyroxine Sodium 125 mcg 03/10/18 06:30 03/17/18 05:46 Synthroid PO 125 mcg MOTUWETHFR@0630 WILLAM Administration Lorazepam 0.5 - 1 mg 03/07/18 14:20 03/17/18 22:37 Ativan PO 0.5 mg Q4H PRN Administration Anxiety Lorazepam 0.5 - 1 mg 03/07/18 14:20 03/17/18 02:43 Ativan Inj IVP 0.5 mg Q4H PRN Administration Anxiety Magnesium Hydroxide 30 ml 03/07/18 14:20 03/15/18 20:02 Mom PO 30 ml DAILY PRN Administration Constipation Metoclopramide HCl 5 - 10 mg 03/07/18 14:20 03/13/18 01:47 Reglan IVP 10 mg Q6H PRN Administration Nausea &/or vomiting Minocycline HCl 100 mg 03/11/18 21:00 03/18/18 08:01 Minocin PO 03/18/18 20:59 100 mg BID WILLAM Administration Morphine Sulfate 2 - 4 mg 03/07/18 14:20 Morphine Sulfate Inj IVP Q5M PRN Angina Nitroglycerin 0.4 mg 03/07/18 14:20 Nitrostat SL Q5M PRN Angina Nystatin 5 ml 03/16/18 17:00 03/18/18 08:01 Mycostatin PO 5 ml QID WILLAM Administration Ondansetron HCl 4 mg 03/07/18 14:20 03/17/18 23:37 Zofran IVP 4 mg Q6H PRN Administration Nausea &/or vomiting Polyethylene Glycol 17 gm 03/16/18 09:00 03/17/18 08:27 Miralax PO 17 gm DAILY WILLAM Administration Promethazine HCl 12.5 - 25 mg 03/07/18 14:20 Phenergan Inj IVP Q6HR PRN Nausea &/or vomiting Ranitidine HCl 150 mg 03/07/18 18:00 03/17/18 17:11 Zantac PO 150 mg 1800 WILLAM Administration Sodium Chloride 10 - 80 ml 03/09/18 14:34 03/17/18 02:43 Iv Flush IV 20 ml PRN PRN Administration Flushing Sodium Chloride 10 ml 03/10/18 20:02 Iv Flush IV PRN PRN Flushing Tramadol HCl 50 mg 03/06/18 18:28 03/18/18 01:13 Ultram PO 50 mg Q6H PRN Administration Pain Discontinued Medications Generic Name Dose Route Start Last Admin Trade Name Freq PRN Reason Stop Dose Admin Acetaminophen 650 mg 03/06/18 18:27 Tylenol PO Q5H PRN Pain Adenosine 6 mg 03/06/18 16:02 03/06/18 16:02 Adenocard IVP 03/06/18 16:03 6 mg O ONE Administration Adenosine 12 mg 03/06/18 16:06 03/06/18 16:06 Adenocard IVP 03/06/18 16:07 12 mg O ONE Administration Atorvastatin Calcium 20 mg 03/07/18 18:00 03/10/18 21:34 Lipitor PO Not Given 1800 WILLAM Atorvastatin Calcium 20 mg 03/08/18 21:00 03/15/18 20:02 Lipitor PO 20 mg HS WILLAM Administration Budesonide/Formoterol Fumarate 2 puff 03/07/18 21:00 Symbicort Inhaler ORAL INH BID WILLAM Bumetanide 1 mg 03/06/18 16:09 03/06/18 18:08 Bumex 1 Mg/4 Ml Inj. IVP 03/06/18 16:10 1 mg O ONE Administration Bumetanide 1 mg 03/06/18 16:10 03/06/18 18:09 Bumex 1 Mg/4 Ml Inj. IVP 03/06/18 16:11 1 mg O ONE Administration Bumetanide 1 mg 03/06/18 16:11 03/06/18 16:11 Bumex 1 Mg/4 Ml Inj. IVP 03/06/18 16:12 1 mg O ONE Administration Bumetanide 2 mg 03/07/18 21:00 03/10/18 21:33 Bumex 1 Mg/4 Ml Inj. IVP Not Given QID WILLAM Bumetanide 2 mg 03/08/18 15:00 03/09/18 04:06 Bumex 1 Mg/4 Ml Inj. IVP Not Given Q6HR WILLAM Bumetanide 1 mg 03/09/18 09:00 03/10/18 08:16 Bumex 1 Mg/4 Ml Inj. IVP 1 mg BID WILLAM Administration Bumetanide 1 mg 03/09/18 14:33 03/09/18 15:41 Bumex 1 Mg/4 Ml Inj. IVP 03/09/18 14:34 1 mg O ONE Administration Bumetanide 2 mg 03/10/18 16:07 03/10/18 20:15 Bumex 1 Mg Tab PO 2 mg [id number] WILLAM Administration Carvedilol 3.125 mg 03/07/18 10:53 03/10/18 07:52 Coreg PO 3.125 mg BIDWM WILLAM Administration Carvedilol 6.25 mg 03/10/18 16:37 03/13/18 09:29 Coreg PO 6.25 mg BIDWM WILLAM Administration Carvedilol 3.125 mg 03/14/18 09:00 03/17/18 08:28 Coreg PO 3.125 mg BIDWM WILLAM Administration Device 1 each 03/07/18 12:57 03/07/18 12:59 [facility] 03/07/18 12:58 1 each O ONE Administration Furosemide 40 mg 03/16/18 18:23 03/16/18 18:25 Lasix 40 Mg/4 Ml IVP 03/16/18 18:24 40 mg O ONE Administration Furosemide 40 mg 03/16/18 19:04 03/16/18 19:05 Lasix 40 Mg/4 Ml IVP 03/16/18 19:05 40 mg O ONE Administration Heparin Sodium (Beef Lung) 6,000 unit 03/06/18 17:04 03/06/18 17:22 Heparin Bolus IVP 03/06/18 17:05 6,000 unit O ONE Administration Heparin Sodium (Beef Lung) 5,000 unit 03/06/18 22:04 03/06/18 22:10 Heparin Bolus IVP 03/06/18 22:05 5,000 unit O ONE Administration Heparin Sodium (Beef Lung) 2,000 unit 03/07/18 09:00 03/07/18 09:21 Heparin Bolus IVP 03/07/18 09:01 2,000 unit O ONE Administration Heparin Sodium (Porcine) 1 each 03/06/18 16:17 Pharmacy Consult - Heparin 03/06/18 16:18 ONE TIME ONE Heparin Sodium (Porcine) 5,000 units 03/09/18 09:00 03/09/18 21:31 Heparin Sq SQ 5,000 units Q12HR WILLAM Administration Heparin Sodium (Porcine) 5,000 units 03/11/18 09:00 03/14/18 09:26 Heparin Sq SQ 5,000 units Q12HR WILLAM Administration Bumetanide 25 mg/ IV Solution 100 mls @ 2 mls/hr 03/06/18 16:15 03/07/18 18: 19 IV Not Given Q24H [facility] Heparin Sodium (Porcine) 20,000 unit in 500 mls @ 30 mls/hr 03/06/18 17:05 14:00 Heparin Drip IV Infused .[id number] WILLAM Titration Protocol 1,200 UNIT/HR Amiodarone HCl 900 mg/ Sodium 500 mls @ 16.66 mls/hr 03/07/18 00:31 03/08/18 12:41 Chloride IV Not Given .Q24H WILLAM 0.5 MG/MIN Amiodarone HCl 450 mg/ Sodium 250 mls @ 33.33 mls/hr 03/06/18 18:30 03/07/18 02:11 Chloride IV 03/07/18 00:30 Infused .[id number] WILLAM Infusion 1 MG/MIN Amiodarone HCl 150 mg/ Sodium 103 mls @ 618 mls/hr 03/06/18 18:20 03/06/18 19 :59 Chloride IV 03/06/18 18:29 Infused O ONE Infusion Heparin Sodium (Porcine) 20,000 unit in 500 mls @ 35 mls/hr 03/07/18 09:00 09:19 Heparin Drip IV Not Given .[id number] WILLAM Protocol 1,400 UNIT/HR Sodium Chloride 1,000 mls @ 50 mls/hr 03/07/18 14:30 03/08/18 06:17 Normal Saline IV 03/08/18 00:30 50 mls/hr .Q20H WILLAM Infusion Cefazolin Sodium 1 g/ Sodium 100 mls @ 200 mls/hr 03/11/18 01:00 03/11/18 09: 37 Chloride IV 03/11/18 09:29 Infused Q8HR WILLAM Infusion Dopamine HCl/Dextrose 400 mg in 250 mls @ 7.073 mls/hr 03/12/18 09:46 Dopamine Drip IV .Q24H PRN Protocol 2 MCG/KG/MIN Sodium Chloride 1,000 mls @ 75 mls/hr 03/12/18 10:00 03/13/18 00:44 Normal Saline IV 03/12/18 23:19 Infused .[id number] WILLAM Infusion Dopamine HCl/Dextrose 400 mg in 250 mls @ 7.073 mls/hr 03/12/18 11:15 16:06 Dopamine Drip IV Not Given .Q24H WILLAM Protocol 2 MCG/KG/MIN Vancomycin HCl 1,000 mg/ 250 mls @ 250 mls/hr 03/14/18 08:05 03/14/18 11:38 Sodium Chloride IV 03/14/18 08:06 Infused O ONE Infusion Sodium Chloride 1,000 mls @ 125 mls/hr 03/14/18 08:15 03/14/18 18:24 Normal Saline IV 03/14/18 16:14 Infused .Q8H WILLAM Infusion Milrinone Lactate/Dextrose 20 mg in 100 mls @ 11.295 mls/hr 03/14/18 15:06 03:00 Milrinone Drip Premix IV Infused .[id number] WILLAM Infusion Protocol 0.375 MCG/KG/MIN Dopamine HCl/Dextrose 400 mg in 250 mls @ 7.665 mls/hr 03/16/18 15:36 17:50 Dopamine Drip IV Infused .Q24H PRN Titration Protocol 2 MCG/KG/MIN Losartan Potassium 25 mg 03/07/18 11:00 03/08/18 12:50 Cozaar PO 25 mg DAILY WILLAM Administration Magnesium Hydroxide 30 ml 03/07/18 12:50 Mom PO DAILY PRN Constipation Methylprednisolone Sodium Succinate 125 mg 03/16/18 18:29 03/16/18 18:15 Solu-Medrol IVP 03/16/18 18:30 125 mg O ONE Administration Mirabegron 50 mg 03/07/18 09:00 03/08/18 08:38 Myrbetriq PO 50 mg DAILY WILLAM Administration Morphine Sulfate 2 - 4 mg 03/07/18 14:20 Morphine Sulfate Inj IVP 03/08/18 14:19 Q2H PRN Pain Ondansetron HCl 4 mg 03/06/18 18:28 Zofran IVP Q6H PRN Nausea &/or vomiting Pharmacy Consult 1 each 03/11/18 15:34 Pharmacy Consult - Fall Risk 03/11/18 15:35 ONE TIME ONE Potassium Chloride 20 meq 03/08/18 21:23 03/08/18 22:08 K-Dur 20 Meq Tablet PO 03/08/18 21:24 20 meq O ONE Administration Potassium Chloride 20 meq 03/09/18 14:33 03/11/18 08:59 K-Dur 20 Meq Tablet PO 20 meq WB WILLAM Administration Potassium Chloride 40 meq 03/16/18 08:40 03/16/18 09:03 K-Dur 20 Meq Tablet PO 03/16/18 08:41 40 meq O ONE Administration Tamsulosin HCl 0.4 mg 03/07/18 18:00 04/21/18 19:04 Flomax PO 0.4 mg 1800 WILLAM Administration - Urinary Catheter Management Urethral Cath placed during this visit: no Results 03/18/18 04:14 03/18/18 04:14 Cardiac Enzymes 03/18/18 Range/Units 04:14 AST 103 H D (17-59) U/L CBC 03/18/18 Range/Units 04:14 WBC 19.2 H D (4.5-11.0) T/MM3 RBC 3.64 L (4.50-5.90) M/MM3 Hgb 11.9 L (13.5-17.5) GM/DL Hct 35.7 L (41-53) % Plt Count 105 L (130-400) T/MM3 Neut # (Auto) Not performed Lymph # (Auto) Not performed [place] # (Auto) Not performed Eos # (Auto) Not performed Baso # (Auto) Not performed Comprehensive Metabolic Panel 03/18/18 Range/Units 04:14 Sodium 138 (134-144) MEQ/L Potassium 4.0 (3.6-5) MEQ/L Chloride 96 L (98-107) MEQ/L Carbon Dioxide 30 (22-30) MEQ/L BUN 86.0 H* (9-20) MG/DL Creatinine 2.0 H D (0.8-1.5) mg/dL Glucose 297 H (75-110) MG/DL Calcium 8.5 (8.4-10.2) MG/DL AST 103 H D (17-59) U/L ALT 270 H (1-50) U/L Alkaline Phosphatase 97 (38-126) U/L Total Protein 6.3 (6.3-8.2) g/dL Albumin 3.4 L (3.5-5.0) g/dL Intake and Output 03/17/18 03/18/18 03/18/18 22:59 06:59 14:59 Intake Total 290.594 / 290.594 529.406 / 529.406 Output Total 568 / 568 520 / 520 Balance -277.406 / -277.406 9.406 / 9.406 Intake: IV 170.594 / 170.594 129.406 / 129.406 Milrinone Drip 20 mg In 100 ml 70.594 / 70.594 29.406 / 29.406 @ 0.375 MCG/KG/MIN 11.295 mls/ hr IV .Q8H52M [facility] Rx#:[id number] Piperacillin/Tazobactam 2.25 gm 100 / 100 100 / 100 In Ns 100 ml @ 200 mls/hr IV Q8H [facility] Rx#:[id number] Oral 120 / 120 400 / 400 Output: Urine Amount (Catheter) 568 / 568 520 / 520 Other: Urine Appearance Sediment Sediment Urine Color Yellow Yellow # Incontinent Voids 1 Assessment and Plan - Assessment and Plan (1) Cardiomyopathy Current visit: Yes Status: Chronic (2) HTN (hypertension) Current visit: Yes Status: Chronic (3) CAD (coronary artery disease) Current visit: Yes Status: Chronic (4) CKD (chronic kidney disease) Current visit: Yes Status: Chronic (5) Hyperlipidemia Current visit: Yes Status: Chronic (6) Acute dyspnea Current visit: No Status: Acute (7) Acute systolic CHF (congestive heart failure) Current visit: Yes Status: Acute (8) SVT (supraventricular tachycardia) Current visit: No Status: Acute (9) NSTEMI (non-ST elevated myocardial infarction) Current visit: Yes Status: Acute (10) Acute renal failure superimposed on chronic kidney disease Current visit: Yes Status: Acute - Attestation Attestation Narrative: 03/18/18 08:06 Recommendation After examining the patient I agree with the above assessment. I am involved in the formulation of the patient's plan of care. Hospital Course Summary Disclaimer: The visit summary below is not to be considered part of the above Progress Note.
[2018-03-16] MEDS ORDERED: DOPamine PREMIX 400 MG/250 ML BAG IV PRN (15:36)
[2018-03-16] MEDS: NYSTATIN 500,000 units/5 ml ORAL LIQUID PO SCH ×2 (16:34→22:50)
[2018-03-16] MEDS: RANITIDINE 150 MG TABLET PO SCH (17:40)
[2018-03-16] MEDS ORDERED: FUROSEMIDE 40 MG/4 ML INJECTION IVP ONE ×2 (18:23→19:04)
[2018-03-16] MEDS ORDERED: METHYLPREDNISOLONE SOD SUCC 125mg/2ml INJECTION IVP ONE (18:29)
[2018-03-17] MEDS: HYDROCODONE/APAP 5mg/325mg TABLET PO PRN ×5 (01:28→22:37)
[2018-03-17] MEDS: SALINE FLUSH 10ml SYRINGE IV PRN (02:43)
[2018-03-17] MEDS: MILRINONE DRIP 20 MG/100 ML BAG IV SCH ×2 (05:33→15:08)
[2018-03-17] MEDS: LEVOTHYROXINE 125 MCG TABLET PO SCH (05:46)
[2018-03-17] MEDS: ALBUTEROL/IPRATROPIUM 2.5mg-0.5mg/3ml NEB AEROSOL SCH ×4 (06:30→18:53)
--- NOTE | 2018-03-17 07:34 | XRay Report ---
EXAM: XR chest 1V LOCATION OF DICTATION: [place] HISTORY: med reaction with wheezes COMPARISON: March 16, 2018 FINDINGS: The heart is mildly enlarged. Left-sided dual-lead pacemaker defibrillator in place. There are diffuse interstitial/opacities within the bilateral lungs. There is no pneumothorax. Right PICC line in place with the tip of the catheter overlying the mid SVC. IMPRESSION: 1. Mild cardiomegaly. 2. Diffuse interstitial/alveolar opacities within the bilateral lungs may be secondary to pulmonary edema or atypical pneumonic infiltrates. Follow-up is recommended. .
[2018-03-17] MEDS: POLYETHYL GLYCOL 3350 17gm PACKET PO SCH (08:27)
[2018-03-17] MEDS: NYSTATIN 500,000 units/5 ml ORAL LIQUID PO SCH ×4 (08:27→21:21)
[2018-03-17] MEDS: CLOPIDOGREL 75 MG TABLET PO SCH (08:28)
[2018-03-17] MEDS: ASPIRIN *EC* 81 MG TABLET PO SCH (08:28)
[2018-03-17] MEDS: MINOCYCLINE 100 MG CAPSULE PO SCH ×2 (08:28→21:21)
[2018-03-17] MEDS: DOCUSATE SODIUM 100 MG CAPSULE PO SCH ×2 (08:28→21:21)
[2018-03-17] MEDS: AMIODARONE 200 MG TABLET PO SCH ×2 (08:28→21:21)
[2018-03-17] MEDS: CARVEDILOL 3.125 MG TABLET PO SCH (08:28)
[2018-03-17] MEDS: PIPERACILLIN/TAZOBACTAM 2.25 GM in NS 100 ML IV SCH ×3 (08:38→23:39)
[2018-03-17] MEDS: LORazepam 0.5 MG TABLET PO PRN ×3 (09:03→22:37)
--- NOTE | 2018-03-17 09:03 | XRay Report ---
EXAM: XR chest 1V LOCATION OF DICTATION: [place] HISTORY: hypoxia COMPARISON: March 16, 2018 FINDINGS: Heart size is upper limits normal. Left-sided pacemaker defibrillator leads in place. Improved aeration within the bilateral lungs with decreasing interstitial/alveolar opacities bilaterally. Mild residual interstitial opacities overlie the lower lung zones. There is no pneumothorax. Right PICC line in place the tip overlying the mid SVC. The osseous structures are within normal limits for the patient's age. IMPRESSION: 1. Improved aeration with decreasing interstitial/opacities bilateral. Mild residual interstitial opacities overlying the lower lung zones. 2. Heart size is upper limits normal. .
--- NOTE | 2018-03-17 09:49 | Pulmonology Progress Note ---
Subjective Principal diagnosis: SCHF, NSTEMI Interval history: Pt in bed, awake and answering some questions, still confused some. + cough with sputum noted, no new issues per staff. Exam Vital signs: Temperature 97.3 F 03/17/18 04:00 Pulse Rate 84 03/17/18 08:00 Respiratory Rate 18 03/17/18 09:26 Blood Pressure 124/59 03/17/18 06:00 Pulse Oximetry 96 03/17/18 06:30 Inpatient Medications: Generic Name Dose Route Start Last Admin Trade Name Freq PRN Reason Stop Dose Admin Acetaminophen 325 - 650 mg 03/07/18 14:20 03/14/18 21:51 Tylenol PO 650 mg Q5H PRN Administration Pain Hydrocodone Bitart/Acetaminophen 1 - 2 tab 03/07/18 14:20 03/17/18 09:02 [place] 5/325 PO 2 tab Q5H PRN Administration Pain Al Hydroxide/Mg Hydroxide 30 ml 03/07/18 14:20 Maalox Plus PO Q3H PRN Indigestion Albuterol Sulfate 2.5 mg 03/12/18 02:04 03/12/18 02:06 Proventil Neb (0.083%) AEROSOL 2.5 mg Q2HR PRN Administration Albuterol/Ipratropium 3 ml 03/10/18 11:00 03/17/18 06:30 Duoneb AEROSOL 3 ml RTQID WILLAM Administration Amiodarone HCl 200 mg 03/08/18 21:25 03/17/18 08:28 Pacerone PO 200 mg BID WILLAM Administration Aspirin 81 mg 03/07/18 09:00 03/17/18 08:28 Ecotrin PO 81 mg DAILY WILLAM Administration Atropine Sulfate 0.5 mg 03/07/18 14:20 Atropine IVP Q5M PRN Bradycardia Bisacodyl 5 - 10 mg 03/07/18 14:20 03/15/18 19:08 Dulcolax PO 5 mg DAILY PRN Administration Constipation Bisacodyl 10 mg 03/07/18 14:20 Dulcolax RECTALLY DAILY PRN Constipation Budesonide/Formoterol Fumarate 2 puff 03/07/18 12:39 03/17/18 09:26 Symbicort Inhaler ORAL INH 2 puff BID WILLAM Administration Carvedilol 3.125 mg 03/14/18 09:00 03/17/18 08:28 Coreg PO 3.125 mg BIDWM WILLAM Administration Clopidogrel Bisulfate 75 mg 03/07/18 09:00 03/17/18 08:28 Plavix PO 75 mg DAILY WILLAM Administration Docusate Sodium 100 mg 03/07/18 21:00 03/17/18 08:28 Colace PO 100 mg BID WILLAM Administration Docusate Sodium 100 mg 03/07/18 12:50 Colace PO BID PRN Piperacillin Sod/Tazobactam 100 mls @ 200 mls/hr 03/14/18 08:15 03/17/18 08: 38 Sod 2.25 gm/ Sodium Chloride IV 200 mls/hr Q8H WILLAM Administration Milrinone Lactate/Dextrose 20 mg in 100 mls @ 11.295 mls/hr 03/14/18 15:06 09:00 Milrinone Drip Premix IV 0.37 mcg/kg/min .Q8H52M WILLAM 11.144 mls/hr Protocol Infusion 0.375 MCG/KG/MIN Sodium Chloride 1,000 mls @ 75 mls/hr 03/14/18 15:06 03/14/18 15:40 Normal Saline IV 75 mls/hr .[id number] WILLAM Administration Levothyroxine Sodium 250 mcg 03/08/18 06:30 03/16/18 06:14 Synthroid PO 250 mcg SUSA@0630 WILLAM Administration Levothyroxine Sodium 125 mcg 03/10/18 06:30 03/17/18 05:46 Synthroid PO 125 mcg MOTUWETHFR@0630 WILLAM Administration Lorazepam 0.5 - 1 mg 03/07/18 14:20 03/17/18 09:03 Ativan PO 0.5 mg Q4H PRN Administration Anxiety Lorazepam 0.5 - 1 mg 03/07/18 14:20 03/17/18 02:43 Ativan Inj IVP 0.5 mg Q4H PRN Administration Anxiety Magnesium Hydroxide 30 ml 03/07/18 14:20 03/15/18 20:02 Mom PO 30 ml DAILY PRN Administration Constipation Metoclopramide HCl 5 - 10 mg 03/07/18 14:20 03/13/18 01:47 Reglan IVP 10 mg Q6H PRN Administration Nausea &/or vomiting Minocycline HCl 100 mg 03/11/18 21:00 03/17/18 08:28 Minocin PO 03/18/18 20:59 100 mg BID WILLAM Administration Morphine Sulfate 2 - 4 mg 03/07/18 14:20 Morphine Sulfate Inj IVP Q5M PRN Angina Nitroglycerin 0.4 mg 03/07/18 14:20 Nitrostat SL Q5M PRN Angina Nystatin 5 ml 03/16/18 17:00 03/17/18 08:27 Mycostatin PO 5 ml QID WILLAM Administration Ondansetron HCl 4 mg 03/07/18 14:20 Zofran IVP Q6H PRN Nausea &/or vomiting Polyethylene Glycol 17 gm 03/16/18 09:00 03/17/18 08:27 Miralax PO 17 gm DAILY WILLAM Administration Promethazine HCl 12.5 - 25 mg 03/07/18 14:20 Phenergan Inj IVP Q6HR PRN Nausea &/or vomiting Ranitidine HCl 150 mg 03/07/18 18:00 03/16/18 17:40 Zantac PO 150 mg 1800 WILLAM Administration Sodium Chloride 10 - 80 ml 03/09/18 14:34 03/17/18 02:43 Iv Flush IV 20 ml PRN PRN Administration Flushing Sodium Chloride 10 ml 03/10/18 20:02 Iv Flush IV PRN PRN Flushing Tramadol HCl 50 mg 03/06/18 18:28 03/14/18 14:39 Ultram PO 50 mg Q6H PRN Administration Pain Discontinued Medications Generic Name Dose Route Start Last Admin Trade Name Freq PRN Reason Stop Dose Admin Acetaminophen 650 mg 03/06/18 18:27 Tylenol PO Q5H PRN Pain Adenosine 6 mg 03/06/18 16:02 03/06/18 16:02 Adenocard IVP 03/06/18 16:03 6 mg O ONE Administration Adenosine 12 mg 03/06/18 16:06 03/06/18 16:06 Adenocard IVP 03/06/18 16:07 12 mg O ONE Administration Atorvastatin Calcium 20 mg 03/07/18 18:00 03/10/18 21:34 Lipitor PO Not Given 1800 WILLAM Atorvastatin Calcium 20 mg 03/08/18 21:00 03/15/18 20:02 Lipitor PO 20 mg HS WILLAM Administration Budesonide/Formoterol Fumarate 2 puff 03/07/18 21:00 Symbicort Inhaler ORAL INH BID WILLAM Bumetanide 1 mg 03/06/18 16:09 03/06/18 18:08 Bumex 1 Mg/4 Ml Inj. IVP 03/06/18 16:10 1 mg O ONE Administration Bumetanide 1 mg 03/06/18 16:10 03/06/18 18:09 Bumex 1 Mg/4 Ml Inj. IVP 03/06/18 16:11 1 mg O ONE Administration Bumetanide 1 mg 03/06/18 16:11 03/06/18 16:11 Bumex 1 Mg/4 Ml Inj. IVP 03/06/18 16:12 1 mg O ONE Administration Bumetanide 2 mg 03/07/18 21:00 03/10/18 21:33 Bumex 1 Mg/4 Ml Inj. IVP Not Given QID WILLAM Bumetanide 2 mg 03/08/18 15:00 03/09/18 04:06 Bumex 1 Mg/4 Ml Inj. IVP Not Given Q6HR WILLAM Bumetanide 1 mg 03/09/18 09:00 03/10/18 08:16 Bumex 1 Mg/4 Ml Inj. IVP 1 mg BID WILLAM Administration Bumetanide 1 mg 03/09/18 14:33 03/09/18 15:41 Bumex 1 Mg/4 Ml Inj. IVP 03/09/18 14:34 1 mg O ONE Administration Bumetanide 2 mg 03/10/18 16:07 03/10/18 20:15 Bumex 1 Mg Tab PO 2 mg [id number] WILLAM Administration Carvedilol 3.125 mg 03/07/18 10:53 03/10/18 07:52 Coreg PO 3.125 mg BIDWM WILLAM Administration Carvedilol 6.25 mg 03/10/18 16:37 03/13/18 09:29 Coreg PO 6.25 mg BIDWM WILLAM Administration Device 1 each 03/07/18 12:57 03/07/18 12:59 Optichamber 03/07/18 12:58 1 each O ONE Administration Furosemide 40 mg 03/16/18 18:23 03/16/18 18:25 Lasix 40 Mg/4 Ml IVP 03/16/18 18:24 40 mg O ONE Administration Furosemide 40 mg 03/16/18 19:04 03/16/18 19:05 Lasix 40 Mg/4 Ml IVP 03/16/18 19:05 40 mg O ONE Administration Heparin Sodium (Beef Lung) 6,000 unit 03/06/18 17:04 03/06/18 17:22 Heparin Bolus IVP 03/06/18 17:05 6,000 unit O ONE Administration Heparin Sodium (Beef Lung) 5,000 unit 03/06/18 22:04 03/06/18 22:10 Heparin Bolus IVP 03/06/18 22:05 5,000 unit O ONE Administration Heparin Sodium (Beef Lung) 2,000 unit 03/07/18 09:00 03/07/18 09:21 Heparin Bolus IVP 03/07/18 09:01 2,000 unit O ONE Administration Heparin Sodium (Porcine) 1 each 03/06/18 16:17 Pharmacy Consult - Heparin 03/06/18 16:18 ONE TIME ONE Heparin Sodium (Porcine) 5,000 units 03/09/18 09:00 03/09/18 21:31 Heparin Sq SQ 5,000 units Q12HR WILLAM Administration Heparin Sodium (Porcine) 5,000 units 03/11/18 09:00 03/14/18 09:26 Heparin Sq SQ 5,000 units Q12HR WILLAM Administration Bumetanide 25 mg/ IV Solution 100 mls @ 2 mls/hr 03/06/18 16:15 03/07/18 18: 19 IV Not Given Q24H WILLAM Heparin Sodium (Porcine) 20,000 unit in 500 mls @ 30 mls/hr 03/06/18 17:05 14:00 Heparin Drip IV Infused .[id number] WILLAM Titration Protocol 1,200 UNIT/HR Amiodarone HCl 900 mg/ Sodium 500 mls @ 16.66 mls/hr 03/07/18 00:31 03/08/18 12:41 Chloride IV Not Given .Q24H WILLAM 0.5 MG/MIN Amiodarone HCl 450 mg/ Sodium 250 mls @ 33.33 mls/hr 03/06/18 18:30 03/07/18 02:11 Chloride IV 03/07/18 00:30 Infused .Q7H31M WILLAM Infusion 1 MG/MIN Amiodarone HCl 150 mg/ Sodium 103 mls @ 618 mls/hr 03/06/18 18:20 03/06/18 19 :59 Chloride IV 03/06/18 18:29 Infused O ONE Infusion Heparin Sodium (Porcine) 20,000 unit in 500 mls @ 35 mls/hr 03/07/18 09:00 09:19 Heparin Drip IV Not Given .[id number] WILLAM Protocol 1,400 UNIT/HR Sodium Chloride 1,000 mls @ 50 mls/hr 03/07/18 14:30 03/08/18 06:17 Normal Saline IV 03/08/18 00:30 50 mls/hr .Q20H WILLAM Infusion Cefazolin Sodium 1 g/ Sodium 100 mls @ 200 mls/hr 03/11/18 01:00 03/11/18 09: 37 Chloride IV 03/11/18 09:29 Infused Q8HR WILLAM Infusion Dopamine HCl/Dextrose 400 mg in 250 mls @ 7.073 mls/hr 03/12/18 09:46 Dopamine Drip IV .Q24H PRN Protocol 2 MCG/KG/MIN Sodium Chloride 1,000 mls @ 75 mls/hr 03/12/18 10:00 03/13/18 00:44 Normal Saline IV 03/12/18 23:19 Infused .[id number] WILLAM Infusion Dopamine HCl/Dextrose 400 mg in 250 mls @ 7.073 mls/hr 03/12/18 11:15 16:06 Dopamine Drip IV Not Given .Q24H WILLAM Protocol 2 MCG/KG/MIN Vancomycin HCl 1,000 mg/ 250 mls @ 250 mls/hr 03/14/18 08:05 03/14/18 11:38 Sodium Chloride IV 03/14/18 08:06 Infused O ONE Infusion Sodium Chloride 1,000 mls @ 125 mls/hr 03/14/18 08:15 03/14/18 18:24 Normal Saline IV 03/14/18 16:14 Infused .Q8H WILLAM Infusion Dopamine HCl/Dextrose 400 mg in 250 mls @ 7.665 mls/hr 03/16/18 15:36 17:50 Dopamine Drip IV Infused .Q24H PRN Titration Protocol 2 MCG/KG/MIN Losartan Potassium 25 mg 03/07/18 11:00 03/08/18 12:50 Cozaar PO 25 mg DAILY WILLAM Administration Magnesium Hydroxide 30 ml 03/07/18 12:50 Mom PO DAILY PRN Constipation Methylprednisolone Sodium Succinate 125 mg 03/16/18 18:29 03/16/18 18:15 Solu-Medrol IVP 03/16/18 18:30 125 mg O ONE Administration Mirabegron 50 mg 03/07/18 09:00 03/08/18 08:38 Myrbetriq PO 50 mg DAILY WILLAM Administration Morphine Sulfate 2 - 4 mg 03/07/18 14:20 Morphine Sulfate Inj IVP 03/08/18 14:19 Q2H PRN Pain Ondansetron HCl 4 mg 03/06/18 18:28 Zofran IVP Q6H PRN Nausea &/or vomiting Pharmacy Consult 1 each 03/11/18 15:34 Pharmacy Consult - Fall Risk MC 03/11/18 15:35 ONE TIME ONE Potassium Chloride 20 meq 03/08/18 21:23 03/08/18 22:08 K-Dur 20 Meq Tablet PO 03/08/18 21:24 20 meq O ONE Administration Potassium Chloride 20 meq 03/09/18 14:33 03/11/18 08:59 K-Dur 20 Meq Tablet PO 20 meq WB WILLAM Administration Potassium Chloride 40 meq 03/16/18 08:40 03/16/18 09:03 K-Dur 20 Meq Tablet PO 03/16/18 08:41 40 meq O ONE Administration Tamsulosin HCl 0.4 mg 03/07/18 18:00 03/08/18 19:04 Flomax PO 0.4 mg 1800 WILLAM Administration - Constitutional no acute distress, obese, cooperative - Routine HEENT Exam Head: Present: normocephalic, atraumatic Eye: Present: EOMI, PERRL ENT: Present: mucous membranes moist - Routine Neck Exam Present: supple, full ROM, trachea midline - Routine Respiratory Exam Present: decreased breath sounds. Absent: accessory muscle use, patient mechanically ventilated, wheezes - Routine Cardiovascular Exam Present: RRR, S1, S2, no murmur - Routine Abdominal Exam Present: soft, normoactive bowel sounds - Routine Extremities Exam Present: no edema, non tender, full ROM. Absent: cyanosis, clubbing - Routine Back/Spine/Pelvis Exam Back/Spine: Present: full ROM - Routine Skin Exam Present: intact, dry - Routine Neurological Exam Present: alert, CN II-XII intact, moving all extremities - Routine Psychiatric Exam Present: cooperative. Absent: suicidal ideation, homicidal ideation, auditory hallucinations, visual hallucinations - Urinary Catheter Management Urethral Cath placed during this visit: yes Urethral indwelling: Yes Reason for continuing: Accurate I&O/Aggressive Diuresis Insertion date: 03/06/18 Insertion time: 16:15 Results - Laboratory Findings Laboratory: Laboratory Results - last 48 hr 03/16/18 03/16/18 03/16/18 03:54 03:54 03:54 WBC 15.5 H RBC 3.54 L Hgb 11.6 L Hct 34.7 L MCV 98.0 MCH 32.8 MCHC 33.4 RDW Std Deviation 54.6 H Plt Count 87 L MPV 12.1 Immature Gran % (Auto) Not performed Neut % (Auto) Not performed Lymph % (Auto) Not performed [place] % (Auto) Not performed Eos % (Auto) Not performed Baso % (Auto) Not performed Neut # (Auto) Not performed Lymph # (Auto) Not performed [place] # (Auto) Not performed Eos # (Auto) Not performed Baso # (Auto) Not performed Abs Immat Gran (auto) Not performed Neutrophils % (Manual) 85.0 H Band Neutrophils % 2.0 Lymphocytes % (Manual) 5.0 L Monocytes % (Manual) 3.0 Eosinophils % (Manual) 5.0 H Neutrophils # (Manual) 13.2 H Band Neutrophils # 0.3 Lymphocytes # (Manual) 0.8 L Monocytes # (Manual) 0.5 Eosinophils # (Manual) 0.8 H Poikilocytosis Anisocytosis Tear Drop Cells Ovalocytes 1+ RBC Morph Comment Abnormal Turbidity < 20 Sodium 136 Potassium 3.4 L Chloride 97 L Carbon Dioxide 27 Anion Gap 12 BUN 115.0 H* Creatinine 2.8 H D GFR Calculation 24 BUN/Creatinine Ratio 41 H Glucose 123 H Calculated Osmolality 300 H Calcium 7.8 L Phosphorus 4.8 H Total Bilirubin 1.10 Conjugated Bilirubin 0.00 Unconjugated Bilirubin 0.30 Icterus Index < 2 AST 271 H D ALT 396 H Alkaline Phosphatase 103 Total Protein 5.8 L Albumin 3.0 L Globulin 2.8 Albumin/Globulin Ratio 1.1 Procalcitonin 4.17 H* Specimen Hemolysis < 15 03/17/18 03/17/18 03/17/18 04:00 04:00 04:00 WBC 11.5 H RBC 3.73 L Hgb 12.2 L Hct 36.3 L MCV 97.3 MCH 32.7 MCHC 33.6 RDW Std Deviation 53.7 H Plt Count 92 L MPV 12.0 Immature Gran % (Auto) Not performed Neut % (Auto) Not performed Lymph % (Auto) Not performed [place] % (Auto) Not performed Eos % (Auto) Not performed Baso % (Auto) Not performed Neut # (Auto) Not performed Lymph # (Auto) Not performed [place] # (Auto) Not performed Eos # (Auto) Not performed Baso # (Auto) Not performed Abs Immat Gran (auto) Not performed Neutrophils % (Manual) 95.0 H Band Neutrophils % 2.0 Lymphocytes % (Manual) 2.0 L Monocytes % (Manual) 1.0 Eosinophils % (Manual) Neutrophils # (Manual) 10.9 H Band Neutrophils # 0.2 Lymphocytes # (Manual) 0.2 L Monocytes # (Manual) 0.1 Eosinophils # (Manual) Poikilocytosis 1+ Anisocytosis 1+ Tear Drop Cells 1+ Ovalocytes 1+ RBC Morph Comment Abnormal Turbidity < 20 Sodium 136 Potassium 3.7 Chloride 96 L Carbon Dioxide 28 Anion Gap 12 BUN 103.0 H* Creatinine 2.5 H D GFR Calculation 27 BUN/Creatinine Ratio 41 H Glucose 240 H Calculated Osmolality 302 H Calcium 8.1 L Phosphorus Total Bilirubin 1.20 Conjugated Bilirubin 0.00 Unconjugated Bilirubin 0.50 Icterus Index < 2 AST 192 H ALT 346 H Alkaline Phosphatase 110 Total Protein 6.3 Albumin 3.4 L Globulin 2.9 Albumin/Globulin Ratio 1.2 Procalcitonin 2.62 H* Specimen Hemolysis < 15 - Diagnostic Findings Chest x-ray: image reviewed (Improving basilar infiltrates with continued cardiomegaly and pulmonary edema) Assessment and Plan - Assessment and Plan Acute Hypoxic respiratory Failure COPD Pulmonary edema Nonischemic Cardiomyopathy/systolic HF EF 10-15% VHD svere MR/TR Vtach NSTEM JIMMIE on CKD (Baseline Message And Delivery Service Pricer 1.6) Plan: Pt currently on O2 at 5L per [place] for breakfast, using bipap f16, 16/6, 35% otherwise. CXR with improving basilar infiltrates but still with congestion noted. WBC improving, afebrile and procal improving 4.15>2.62, on Zosyn. Cont on BT's with A/A QID and symbicort BID no wheezing noted. On milrinone 0.37mncg/ kg, Cr improving with good UOP noted. Continue to follow closely. - Time Spent With Patient Total time spent is greater than 50% in coordination of care (as documented) at patient's floor/unit and/or counseling patient: less than 15 minutes
--- NOTE | 2018-03-17 10:56 | Cardiology Progress Note ---
<Susie,Amy M - Last Filed: 03/17/18 18:17> Subjective Principal diagnosis: SCHF, NSTEMI Interval history: Mirza is seen in follow up for NSTEMI, SVT, and sustained VT that required cardioversion at bedside. He is sleepy and wearing Bi-PAP. C/O thirst and asks for frequent drinks of water. He denies chest pain or pressure, SOA, dizziness or nausea. Exam Vital signs: Temperature 97.3 F 03/17/18 08:00 Pulse Rate 83 03/17/18 09:30 Respiratory Rate 16 03/17/18 10:18 Blood Pressure 136/62 03/17/18 09:00 Pulse Oximetry 95 03/17/18 10:18 Inpatient Medications: Generic Name Dose Route Start Last Admin Trade Name Freq PRN Reason Stop Dose Admin Acetaminophen 325 - 650 mg 03/07/18 14:20 03/14/18 21:51 Tylenol PO 650 mg Q5H PRN Administration Pain Hydrocodone Bitart/Acetaminophen 1 - 2 tab 03/07/18 14:20 03/17/18 09:02 [place] 5/325 PO 2 tab Q5H PRN Administration Pain Al Hydroxide/Mg Hydroxide 30 ml 03/07/18 14:20 Maalox Plus PO Q3H PRN Indigestion Albuterol Sulfate 2.5 mg 03/12/18 02:04 03/12/18 02:06 Proventil Neb (0.083%) AEROSOL 2.5 mg Q2HR PRN Administration Albuterol/Ipratropium 3 ml 03/10/18 11:00 03/17/18 10:17 Duoneb AEROSOL 3 ml RTQID WILLAM Administration Amiodarone HCl 200 mg 03/08/18 21:25 03/17/18 08:28 Pacerone PO 200 mg BID WILLAM Administration Aspirin 81 mg 03/07/18 09:00 03/17/18 08:28 Ecotrin PO 81 mg DAILY WILLAM Administration Atropine Sulfate 0.5 mg 03/07/18 14:20 Atropine IVP Q5M PRN Bradycardia Bisacodyl 5 - 10 mg 03/07/18 14:20 03/15/18 19:08 Dulcolax PO 5 mg DAILY PRN Administration Constipation Bisacodyl 10 mg 03/07/18 14:20 Dulcolax RECTALLY DAILY PRN Constipation Budesonide/Formoterol Fumarate 2 puff 03/07/18 12:39 03/17/18 09:26 Symbicort Inhaler ORAL INH 2 puff BID WILLAM Administration Carvedilol 3.125 mg 03/14/18 09:00 03/17/18 08:28 Coreg PO 3.125 mg BIDWM WILLAM Administration Clopidogrel Bisulfate 75 mg 03/07/18 09:00 03/17/18 08:28 Plavix PO 75 mg DAILY WILLAM Administration Docusate Sodium 100 mg 03/07/18 21:00 03/17/18 08:28 Colace PO 100 mg BID WILLAM Administration Docusate Sodium 100 mg 03/07/18 12:50 Colace PO BID PRN Piperacillin Sod/Tazobactam 100 mls @ 200 mls/hr 03/14/18 08:15 03/17/18 09: 15 Sod 2.25 gm/ Sodium Chloride IV Infused Q8H WILLAM Infusion Milrinone Lactate/Dextrose 20 mg in 100 mls @ 11.295 mls/hr 03/14/18 15:06 10:00 Milrinone Drip Premix IV 0.37 mcg/kg/min .[id number] WILLAM 11.3 mls/hr Protocol Infusion 0.375 MCG/KG/MIN Sodium Chloride 1,000 mls @ 75 mls/hr 03/14/18 15:06 03/14/18 15:40 Normal Saline IV 75 mls/hr .[id number] WILLAM Administration Levothyroxine Sodium 250 mcg 03/08/18 06:30 03/16/18 06:14 Synthroid PO 250 mcg SUSA@0630 WILLAM Administration Levothyroxine Sodium 125 mcg 03/10/18 06:30 03/17/18 05:46 Synthroid PO 125 mcg MOTUWETHFR@0630 WILLAM Administration Lorazepam 0.5 - 1 mg 03/07/18 14:20 03/17/18 09:03 Ativan PO 0.5 mg Q4H PRN Administration Anxiety Lorazepam 0.5 - 1 mg 03/07/18 14:20 03/17/18 02:43 Ativan Inj IVP 0.5 mg Q4H PRN Administration Anxiety Magnesium Hydroxide 30 ml 03/07/18 14:20 03/15/18 20:02 Mom PO 30 ml DAILY PRN Administration Constipation Metoclopramide HCl 5 - 10 mg 03/07/18 14:20 03/13/18 01:47 Reglan IVP 10 mg Q6H PRN Administration Nausea &/or vomiting Minocycline HCl 100 mg 03/11/18 21:00 03/17/18 08:28 Minocin PO 03/18/18 20:59 100 mg BID WILLAM Administration Morphine Sulfate 2 - 4 mg 03/07/18 14:20 Morphine Sulfate Inj IVP Q5M PRN Angina Nitroglycerin 0.4 mg 03/07/18 14:20 Nitrostat SL Q5M PRN Angina Nystatin 5 ml 03/16/18 17:00 03/17/18 08:27 Mycostatin PO 5 ml QID WILLAM Administration Ondansetron HCl 4 mg 03/07/18 14:20 Zofran IVP Q6H PRN Nausea &/or vomiting Polyethylene Glycol 17 gm 03/16/18 09:00 03/17/18 08:27 Miralax PO 17 gm DAILY WILLAM Administration Promethazine HCl 12.5 - 25 mg 03/07/18 14:20 Phenergan Inj IVP Q6HR PRN Nausea &/or vomiting Ranitidine HCl 150 mg 03/07/18 18:00 03/16/18 17:40 Zantac PO 150 mg 1800 WILLAM Administration Sodium Chloride 10 - 80 ml 03/09/18 14:34 03/17/18 02:43 Iv Flush IV 20 ml PRN PRN Administration Flushing Sodium Chloride 10 ml 03/10/18 20:02 Iv Flush IV PRN PRN Flushing Tramadol HCl 50 mg 03/06/18 18:28 03/14/18 14:39 Ultram PO 50 mg Q6H PRN Administration Pain Discontinued Medications Generic Name Dose Route Start Last Admin Trade Name Freq PRN Reason Stop Dose Admin Acetaminophen 650 mg 03/06/18 18:27 Tylenol PO Q5H PRN Pain Adenosine 6 mg 03/06/18 16:02 03/06/18 16:02 Adenocard IVP 03/06/18 16:03 6 mg O ONE Administration Adenosine 12 mg 03/06/18 16:06 03/06/18 16:06 Adenocard IVP 03/06/18 16:07 12 mg O ONE Administration Atorvastatin Calcium 20 mg 03/07/18 18:00 03/10/18 21:34 Lipitor PO Not Given 1800 WILLAM Atorvastatin Calcium 20 mg 03/08/18 21:00 03/15/18 20:02 Lipitor PO 20 mg HS WILLAM Administration Budesonide/Formoterol Fumarate 2 puff 03/07/18 21:00 Symbicort Inhaler ORAL INH BID WILLAM Bumetanide 1 mg 03/06/18 16:09 03/06/18 18:08 Bumex 1 Mg/4 Ml Inj. IVP 03/06/18 16:10 1 mg O ONE Administration Bumetanide 1 mg 03/06/18 16:10 03/06/18 18:09 Bumex 1 Mg/4 Ml Inj. IVP 03/06/18 16:11 1 mg O ONE Administration Bumetanide 1 mg 03/06/18 16:11 03/06/18 16:11 Bumex 1 Mg/4 Ml Inj. IVP 03/06/18 16:12 1 mg O ONE Administration Bumetanide 2 mg 03/07/18 21:00 03/10/18 21:33 Bumex 1 Mg/4 Ml Inj. IVP Not Given QID WILLAM Bumetanide 2 mg 03/08/18 15:00 03/09/18 04:06 Bumex 1 Mg/4 Ml Inj. IVP Not Given Q6HR WILLAM Bumetanide 1 mg 03/09/18 09:00 03/10/18 08:16 Bumex 1 Mg/4 Ml Inj. IVP 1 mg BID WILLAM Administration Bumetanide 1 mg 03/09/18 14:33 03/09/18 15:41 Bumex 1 Mg/4 Ml Inj. IVP 03/09/18 14:34 1 mg O ONE Administration Bumetanide 2 mg 03/10/18 16:07 03/10/18 20:15 Bumex 1 Mg Tab PO 2 mg [id number] WILLAM Administration Carvedilol 3.125 mg 03/07/18 10:53 03/10/18 07:52 Coreg PO 3.125 mg BIDWM WILLAM Administration Carvedilol 6.25 mg 03/10/18 16:37 03/13/18 09:29 Coreg PO 6.25 mg BIDWM WILLAM Administration Device 1 each 03/07/18 12:57 03/07/18 12:59 Optichamber MC 03/07/18 12:58 1 each O ONE Administration Furosemide 40 mg 03/16/18 18:23 03/16/18 18:25 Lasix 40 Mg/4 Ml IVP 03/16/18 18:24 40 mg O ONE Administration Furosemide 40 mg 03/16/18 19:04 03/16/18 19:05 Lasix 40 Mg/4 Ml IVP 03/16/18 19:05 40 mg O ONE Administration Heparin Sodium (Beef Lung) 6,000 unit 03/06/18 17:04 03/06/18 17:22 Heparin Bolus IVP 03/06/18 17:05 6,000 unit O ONE Administration Heparin Sodium (Beef Lung) 5,000 unit 03/06/18 22:04 03/06/18 22:10 Heparin Bolus IVP 03/06/18 22:05 5,000 unit O ONE Administration Heparin Sodium (Beef Lung) 2,000 unit 03/07/18 09:00 03/07/18 09:21 Heparin Bolus IVP 03/07/18 09:01 2,000 unit O ONE Administration Heparin Sodium (Porcine) 1 each 03/06/18 16:17 Pharmacy Consult - Heparin 03/06/18 16:18 ONE TIME ONE Heparin Sodium (Porcine) 5,000 units 03/09/18 09:00 03/09/18 21:31 Heparin Sq SQ 5,000 units Q12HR WILLAM Administration Heparin Sodium (Porcine) 5,000 units 03/11/18 09:00 03/14/18 09:26 Heparin Sq SQ 5,000 units Q12HR WILLAM Administration Bumetanide 25 mg/ IV Solution 100 mls @ 2 mls/hr 03/06/18 16:15 03/07/18 18: 19 IV Not Given Q24H [facility] Heparin Sodium (Porcine) 20,000 unit in 500 mls @ 30 mls/hr 03/06/18 17:05 14:00 Heparin Drip IV Infused .[id number] WILLAM Titration Protocol 1,200 UNIT/HR Amiodarone HCl 900 mg/ Sodium 500 mls @ 16.66 mls/hr 03/07/18 00:31 03/08/18 12:41 Chloride IV Not Given .Q24H WILLAM 0.5 MG/MIN Amiodarone HCl 450 mg/ Sodium 250 mls @ 33.33 mls/hr 03/06/18 18:30 03/07/18 02:11 Chloride IV 03/07/18 00:30 Infused .Q7H31M WILLAM Infusion 1 MG/MIN Amiodarone HCl 150 mg/ Sodium 103 mls @ 618 mls/hr 03/06/18 18:20 03/06/18 19 :59 Chloride IV 03/06/18 18:29 Infused O ONE Infusion Heparin Sodium (Porcine) 20,000 unit in 500 mls @ 35 mls/hr 03/07/18 09:00 09:19 Heparin Drip IV Not Given .[id number] WILLAM Protocol 1,400 UNIT/HR Sodium Chloride 1,000 mls @ 50 mls/hr 03/07/18 14:30 03/08/18 06:17 Normal Saline IV 03/08/18 00:30 50 mls/hr .Q20H WILLAM Infusion Cefazolin Sodium 1 g/ Sodium 100 mls @ 200 mls/hr 03/11/18 01:00 03/11/18 09: 37 Chloride IV 03/11/18 09:29 Infused Q8HR WILLAM Infusion Dopamine HCl/Dextrose 400 mg in 250 mls @ 7.073 mls/hr 03/12/18 09:46 Dopamine Drip IV .Q24H PRN Protocol 2 MCG/KG/MIN Sodium Chloride 1,000 mls @ 75 mls/hr 03/12/18 10:00 03/13/18 00:44 Normal Saline IV 03/12/18 23:19 Infused .[id number] WILLAM Infusion Dopamine HCl/Dextrose 400 mg in 250 mls @ 7.073 mls/hr 03/12/18 11:15 16:06 Dopamine Drip IV Not Given .Q24H WILLAM Protocol 2 MCG/KG/MIN Vancomycin HCl 1,000 mg/ 250 mls @ 250 mls/hr 03/14/18 08:05 03/14/18 11:38 Sodium Chloride IV 03/14/18 08:06 Infused O ONE Infusion Sodium Chloride 1,000 mls @ 125 mls/hr 03/14/18 08:15 03/14/18 18:24 Normal Saline IV 03/14/18 16:14 Infused .Q8H WILLAM Infusion Dopamine HCl/Dextrose 400 mg in 250 mls @ 7.665 mls/hr 03/16/18 15:36 17:50 Dopamine Drip IV Infused .Q24H PRN Titration Protocol 2 MCG/KG/MIN Losartan Potassium 25 mg 03/07/18 11:00 03/08/18 12:50 Cozaar PO 25 mg DAILY WILLAM Administration Magnesium Hydroxide 30 ml 03/07/18 12:50 Mom PO DAILY PRN Constipation Methylprednisolone Sodium Succinate 125 mg 03/16/18 18:29 03/16/18 18:15 Solu-Medrol IVP 03/16/18 18:30 125 mg O ONE Administration Mirabegron 50 mg 03/07/18 09:00 03/08/18 08:38 Myrbetriq PO 50 mg DAILY WILLAM Administration Morphine Sulfate 2 - 4 mg 03/07/18 14:20 Morphine Sulfate Inj IVP 03/08/18 14:19 Q2H PRN Pain Ondansetron HCl 4 mg 03/06/18 18:28 Zofran IVP Q6H PRN Nausea &/or vomiting Pharmacy Consult 1 each 03/11/18 15:34 Pharmacy Consult - Fall Risk 03/11/18 15:35 ONE TIME ONE Potassium Chloride 20 meq 03/08/18 21:23 03/08/18 22:08 K-Dur 20 Meq Tablet PO 03/08/18 21:24 20 meq O ONE Administration Potassium Chloride 20 meq 03/09/18 14:33 03/11/18 08:59 K-Dur 20 Meq Tablet PO 20 meq WB WILLAM Administration Potassium Chloride 40 meq 03/16/18 08:40 03/16/18 09:03 K-Dur 20 Meq Tablet PO 03/16/18 08:41 40 meq O ONE Administration Tamsulosin HCl 0.4 mg 03/07/18 18:00 03/08/18 19:04 Flomax PO 0.4 mg 1800 WILLAM Administration - Constitutional no acute distress, cooperative - Routine HEENT Exam Head: Present: normocephalic ENT: Present: mucous membranes moist - Routine Neck Exam Absent: JVD, carotid bruit - Routine Chest/Breast/Axilla Exam Chest wall: Present: tenderness, pacemaker - Routine Respiratory Exam Present: decreased breath sounds. Absent: accessory muscle use, dyspnea - Routine Cardiovascular Exam Present: no murmur. Absent: JVD - Routine Abdominal Exam Present: soft, non tender - Routine Extremities Exam Present: edema (trace) - Routine Skin Exam Present: intact, dry, warm - Routine Neurological Exam Present: alert - Routine Psychiatric Exam Present: normal affect - Urinary Catheter Management Urethral Cath placed during this visit: yes Urethral indwelling: Yes Insertion date: 03/06/18 Insertion time: 16:15 Results 03/17/18 04:00 03/17/18 04:00 Cardiac Enzymes 03/17/18 Range/Units 04:00 AST 192 H (17-59) U/L CBC 03/17/18 Range/Units 04:00 WBC 11.5 H (4.5-11.0) T/MM3 RBC 3.73 L (4.50-5.90) M/MM3 Hgb 12.2 L (13.5-17.5) GM/DL Hct 36.3 L (41-53) % Plt Count 92 L (130-400) T/MM3 Neut # (Auto) Not performed Lymph # (Auto) Not performed [place] # (Auto) Not performed Eos # (Auto) Not performed Baso # (Auto) Not performed Comprehensive Metabolic Panel 03/17/18 Range/Units 04:00 Sodium 136 (134-144) MEQ/L Potassium 3.7 (3.6-5) MEQ/L Chloride 96 L (98-107) MEQ/L Carbon Dioxide 28 (22-30) MEQ/L BUN 103.0 H* (9-20) MG/DL Creatinine 2.5 H D (0.8-1.5) mg/dL Glucose 240 H (75-110) MG/DL Calcium 8.1 L (8.4-10.2) MG/DL Unconjugated Bilirubin 0.50 (0.00-1.1) mg/dL AST 192 H (17-59) U/L ALT 346 H (1-50) U/L Alkaline Phosphatase 110 (38-126) U/L Total Protein 6.3 (6.3-8.2) g/dL Albumin 3.4 L (3.5-5.0) g/dL Intake and Output 03/16/18 03/17/18 03/17/18 22:59 06:59 14:59 Intake Total 743.634 / 743.634 628.888 / 628.888 145.2 / 145.2 Output Total 813 / 813 1954 / 1954 570 / 570 Balance -69.366 / -69.366 -1326.112 / -1326.112 -424.8 / -424.8 Intake: IV 193.634 / 193.634 188.888 / 188.888 145.2 / 145.2 DOPamine PREMIX 400 mg In 250 9.449 / 9.449 ml @ 2 MCG/KG/MIN 7.665 mls/hr IV .Q24H PRN Rx#:[id number] Milrinone Drip 20 mg In 100 ml 84.185 / 84.185 88.888 / 88.888 45.2 / 45.2 @ 0.375 MCG/KG/MIN 11.295 mls/ hr IV .Q8H52M WILLAM Rx#:[id number] Piperacillin/Tazobactam 2.25 gm 100 / 100 100 / 100 100 / 100 In Ns 100 ml @ 200 mls/hr IV Q8H WILLAM Rx#:[id number] Oral 550 / 550 440 / 440 Output: Urine Amount (Catheter) 813 / 813 1954 / 1954 570 / 570 Other: Urine Appearance Sediment Sediment Cloudy Urine Color Yellow Yellow Yellow Weight 223 lb 5.252 oz Patient Weight 03/18/18 06:59 Weight 223 lb 5.252 oz - Imaging and Cardiology Imaging & Cardiology Narrative: Date of Exam: 03/17/18 Ordering Provider: Jackeline Rivero MD Type of Exam(s): XR chest 1V Reason for Exam(s): hypoxia EXAM: XR chest 1V LOCATION OF DICTATION: [place] HISTORY: hypoxia COMPARISON: March 16, 2018 FINDINGS: Heart size is upper limits normal. Left-sided pacemaker defibrillator leads in place. Improved aeration within the bilateral lungs with decreasing interstitial/alveolar opacities bilaterally. Mild residual interstitial opacities overlie the lower lung zones. There is no pneumothorax. Right PICC line in place the tip overlying the mid SVC. The osseous structures are within normal limits for the patient's age. IMPRESSION: 1. Improved aeration with decreasing interstitial/opacities bilateral. Mild residual interstitial opacities overlying the lower lung zones. 2. Heart size is upper limits normal. 03/17/18 10:50 Assessment and Plan - Assessment and Plan (1) Cardiomyopathy Current visit: Yes Status: Chronic (2) HTN (hypertension) Current visit: Yes Status: Chronic (3) CAD (coronary artery disease) Current visit: Yes Status: Chronic (4) CKD (chronic kidney disease) Current visit: Yes Status: Chronic (5) Hyperlipidemia Current visit: Yes Status: Chronic (6) Acute dyspnea Current visit: No Status: Acute (7) Acute systolic CHF (congestive heart failure) Current visit: Yes Status: Acute (8) SVT (supraventricular tachycardia) Current visit: No Status: Acute (9) NSTEMI (non-ST elevated myocardial infarction) Current visit: Yes Status: Acute (10) Acute renal failure superimposed on chronic kidney disease Current visit: Yes Status: Acute - Assessment and Plan 03/12/2018 NSTEMI (non-ST elevated myocardial infarction) - Troponin 1) 0.239, 2) 0.236, 3)0.320 4.)0.412 - WBC trending up VT/ SVT (supraventricular tachycardia) - Continue amiodarone 200 mg PO BID - EKG in am - Bi-V AICD in place - EKG: Sinus Tachycardia, no acute changes - Monitor on tele Acute dyspnea - Presented from [facility] on 4l/NC - [facility], on 4L per [place] this am - CXR no pneumothorax. Mild pulmonary vascular congestion or edema. Acute systolic CHF (congestive heart failure) - Echo: EF 10-15%, severe MR/TR - CXR: mild pulmonary vascular congestion or edema - Cr up to 3.5, BUN 91 - BNP 9080 - Will continue to hold diuresis - Pt admits heavy ETOH consumption 6-12 beers daily for many years prior to one year ago. - Will initiate NS 75 mL/hr x 10 hours - Start dopamine gtt to help perfuse kidneys Cardiomyopathy - Echo: EF 10-15%, severe MR/ TR HTN (hypertension) - Continue Coreg 6.25 mg BID CAD (coronary artery disease) - Heart cath on 03/07/18 revealed coronaries with nonobstructive disease - Continue ASA, BB and statin - Continue Plavix d/t to stent in RLE CKD (chronic kidney disease) - BUN increased to 91/SCr 3.5 (base line 1.6) - Will continue to hold diuresis - Potassium 5.2 - Renal U/S indicated no hydronephrosis or renal mass Hyperlipidemia - Continue Statin Ppx: SQ Heparin PO Ranitidine 03/13/2018 NSTEMI (non-ST elevated myocardial infarction) - Troponin 1) 0.239, 2) 0.236, 3)0.320 4.)0.412 - Likely demand 2/2 respiratory failure/pulmonary edema VT/ SVT (supraventricular tachycardia) - Continue amiodarone 200 mg PO BID - EKG in am - Bi-V AICD in place - EKG: Sinus Tachycardia with LBBB, left axis deviation and supraventricular premature complexes - Monitor on tele Acute dyspnea - Presented from [facility] on 4l/NC - RCAT, continues to need bi-pap intermittently - CXR no pneumothorax. Mild pulmonary vascular congestion or edema. Acute systolic CHF (congestive heart failure) - Echo: EF 10-15%, severe MR/TR - CXR: mild pulmonary vascular congestion or edema - Cr 3.5 yesterday/3.1 today, BUN 91 yesterday/100 today - BNP 9080 - Will continue to hold diuresis - Pt admits heavy ETOH consumption 6-12 beers daily for many years prior to one year ago. - Will initiate NS 75 mL/hr x 10 hours - Will d/c dopamine gtt - Flores to monitor I&O - + FB today - Unable to start JAGDISH/ARB d/t hypotension/CKD Cardiomyopathy - Echo: EF 10-15%, severe MR/ TR - Continue medical therapy - Bi-V AICD in place HTN (hypertension) - Continue Coreg 6.25 mg BID CAD (coronary artery disease) - Heart cath on 03/07/18 revealed coronaries with nonobstructive disease - Continue ASA, BB and statin - Continue Plavix d/t to stent in RLE Acute Renal Failure - BUN 100, Cr 3.1 - Renal U/S indicated no hydronephrosis or renal mass CKD (chronic kidney disease) - Baseline Cr 1.6) - Will continue to hold diuresis - Potassium 4.2 - Mg 2.7 Hyperlipidemia - Continue Statin Ppx: SQ Heparin PO Ranitidine 03/14/18 Dyspnea: CXR: Resolved pulmonary edema. Stable right lower lobe airspace disease. CKD: BUN 118/SCr 3.8 today Transfer to CCU for Milrinone 0.375mcg/kg drip NS at 75mL X 1 liter 03/15/2018 [facility]: CXR: increased pulmonary edema. Cr and BUN decreased. Cont milrinone gtt 0.375. - lungs sounds clear and edema not bad in right leg. - s/p BiV/ICD - incision looks good. he is not pacing. A/CKD: recent Cr 3.8 -> 3.3 today and BUN up to 121 today. no diuretic. 03/16/2018 [facility]: CXR: increased pulmonary edema. Cr and BUN decreased. Cont milrinone gtt 0.375. - lungs sounds clear and edema not bad in right lower leg. - U/O ave 40-60 this morning. U/O 30 ml/hr this afternoon. - add dopamine 2 mcg/kg/min to increase perfusion to kidneys and improve U/ O. - s/p BiV/ICD - incision looks good. he is not paced - Coreg held the last 2 mornings due to low BP. A/CKD: recent Cr 3.8 -> 3.3 -> 2.8 today and BUN down to 115 today. no diuretic. NSTEMI T2 s/p HC: no significant CAD. Cont ASa and Plavix. Thrush: add Nystatin swish and swallow. 03/17/18 [facility]: CXR: Improved aeration with decreasing interstitial/opacities bilateral. Mild residual interstitial opacities overlying the lower lung zones. - Hold Coreg due to low B/P - BUN/ Cr 103/2.5 today, wean Milrinone over next 8 hours - Heparin 5000 units q8h SQ for DVT Hospital Course Summary Disclaimer: The visit summary below is not to be considered part of the above Progress Note. Hospital Course: Impression Leukocytosis Tachycardia Elevated LFTs Cardiomyopathy- with acute systolic failure Non-STEMI V. tach hyperlipidemia Hypertension Coronary artery disease Schizophrenia Depression History of CVA Plan Continued cardiology care as per Dr. Stahl, planning for pacemaker/ defibrillator placement later today. Patient doesn't meet nursing sepsis criteria. Given tachycardia, tachypnea and leukocytosis. All 3 of these may be multifactorial including severe cardiomyopathy and respiratory distress. Will obtain UA, Lactate and Blood cultures, Chest Xray to rule out infectious etiology Given respiratory distress will consult pulmonary, Dr Gibbs for evaluation and recommendations Monitor renal function- known CKD- [employer] 2.2 (Baseline [employer]opter 1.6) Continues on scheduled Bumex for diuresis- Monitor renal function Appreciate medical consultation. Will continue to follow patient. At time if discharge medical care is to return to PCP in Dr Hilda Self Case discussed with attending, Dr Serna <Jose C Stahl - Last Filed: 03/19/18 13:17> Exam Vital signs: Temperature 96.8 F 03/19/18 07:43 Pulse Rate 85 03/19/18 08:00 Respiratory Rate 18 03/19/18 11:00 Blood Pressure 135/80 03/19/18 07:43 Pulse Oximetry 100 03/19/18 11:00 Inpatient Medications: Generic Name Dose Route Start Last Admin Trade Name Freq PRN Reason Stop Dose Admin Acetaminophen 325 - 650 mg 03/07/18 14:20 03/19/18 04:55 Tylenol PO 650 mg Q5H PRN Administration Pain Hydrocodone Bitart/Acetaminophen 1 - 2 tab 03/07/18 14:20 03/19/18 06:00 [place] 5/325 PO 1 tab Q5H PRN Administration Pain Al Hydroxide/Mg Hydroxide 30 ml 03/07/18 14:20 Maalox Plus PO Q3H PRN Indigestion Albuterol Sulfate 2.5 mg 03/12/18 02:04 03/12/18 02:06 Proventil Neb (0.083%) AEROSOL 2.5 mg Q2HR PRN Administration Albuterol/Ipratropium 3 ml 03/10/18 11:00 03/19/18 11:00 Duoneb AEROSOL 3 ml RTQID WILLAM Administration Amiodarone HCl 200 mg 03/08/18 21:25 03/19/18 09:10 Pacerone PO 200 mg BID WILLAM Administration Aspirin 81 mg 03/07/18 09:00 03/19/18 09:10 Ecotrin PO 81 mg DAILY WILLAM Administration Atropine Sulfate 0.5 mg 03/07/18 14:20 Atropine IVP Q5M PRN Bradycardia Bisacodyl 5 - 10 mg 03/07/18 14:20 03/15/18 19:08 Dulcolax PO 5 mg DAILY PRN Administration Constipation Bisacodyl 10 mg 03/07/18 14:20 Dulcolax RECTALLY DAILY PRN Constipation Budesonide/Formoterol Fumarate 2 puff 03/07/18 12:39 03/19/18 09:19 Symbicort Inhaler ORAL INH 2 puff BID WILLAM Administration Carvedilol 3.125 mg 03/18/18 08:17 03/19/18 09:10 Coreg PO 3.125 mg BIDWM [facility] Administration Clopidogrel Bisulfate 75 mg 03/07/18 09:00 03/19/18 09:10 Plavix PO 75 mg DAILY [facility] Administration Docusate Sodium 100 mg 03/07/18 21:00 03/19/18 09:11 Colace PO Not Given BID WILLAM Docusate Sodium 100 mg 03/07/18 12:50 Colace PO BID PRN Heparin Sodium (Porcine) 5,000 units 03/17/18 17:00 03/19/18 09:11 Heparin Sq SQ 5,000 units Q8HR [facility] Administration Piperacillin Sod/Tazobactam 100 mls @ 200 mls/hr 03/14/18 08:15 03/19/18 09: 40 Sod 2.25 gm/ Sodium Chloride IV Infused Q8H [facility] Infusion Levothyroxine Sodium 250 mcg 03/08/18 06:30 03/16/18 06:14 Synthroid PO 250 mcg SUSA@0630 [facility] Administration Levothyroxine Sodium 125 mcg 03/10/18 06:30 03/19/18 05:57 Synthroid PO 125 mcg MOTUWETHFR@0630 [facility] Administration Lorazepam 0.5 - 1 mg 03/07/18 14:20 03/17/18 22:37 Ativan PO 0.5 mg Q4H PRN Administration Anxiety Lorazepam 0.5 - 1 mg 03/07/18 14:20 03/17/18 02:43 Ativan Inj IVP 0.5 mg Q4H PRN Administration Anxiety Magnesium Hydroxide 30 ml 03/07/18 14:20 03/15/18 20:02 Mom PO 30 ml DAILY PRN Administration Constipation Metoclopramide HCl 5 - 10 mg 03/07/18 14:20 03/13/18 01:47 Reglan IVP 10 mg Q6H PRN Administration Nausea &/or vomiting Morphine Sulfate 2 - 4 mg 03/07/18 14:20 Morphine Sulfate Inj IVP Q5M PRN Angina Nitroglycerin 0.4 mg 03/07/18 14:20 Nitrostat SL Q5M PRN Angina Nystatin 5 ml 03/16/18 17:00 03/19/18 09:11 Mycostatin PO 5 ml QID [facility] Administration Ondansetron HCl 4 mg 03/07/18 14:20 03/17/18 23:37 Zofran IVP 4 mg Q6H PRN Administration Nausea &/or vomiting Polyethylene Glycol 17 gm 03/16/18 09:00 03/19/18 09:11 Miralax PO Not Given DAILY WILLAM Promethazine HCl 12.5 - 25 mg 03/07/18 14:20 Phenergan Inj IVP Q6HR PRN Nausea &/or vomiting Ranitidine HCl 150 mg 03/07/18 18:00 03/19/18 08:57 Zantac PO Not Given 1800 [facility] Sodium Chloride 10 - 80 ml 03/09/18 14:34 03/18/18 20:43 Iv Flush IV 20 ml PRN PRN Administration Flushing Sodium Chloride 10 ml 03/10/18 20:02 Iv Flush IV PRN PRN Flushing Tramadol HCl 50 mg 03/06/18 18:28 03/18/18 01:13 Ultram PO 50 mg Q6H PRN Administration Pain Discontinued Medications Generic Name Dose Route Start Last Admin Trade Name Freq PRN Reason Stop Dose Admin Acetaminophen 650 mg 03/06/18 18:27 Tylenol PO Q5H PRN Pain Adenosine 6 mg 03/06/18 16:02 03/06/18 16:02 Adenocard IVP 03/06/18 16:03 6 mg O ONE Administration Adenosine 12 mg 03/06/18 16:06 03/06/18 16:06 Adenocard IVP 03/06/18 16:07 12 mg O ONE Administration Atorvastatin Calcium 20 mg 03/07/18 18:00 03/10/18 21:34 Lipitor PO Not Given 1800 [facility] Atorvastatin Calcium 20 mg 03/08/18 21:00 03/15/18 20:02 Lipitor PO 20 mg HS WILLMA Administration Budesonide/Formoterol Fumarate 2 puff 03/07/18 21:00 Symbicort Inhaler ORAL INH BID WILLAM Bumetanide 1 mg 03/06/18 16:09 03/06/18 18:08 Bumex 1 Mg/4 Ml Inj. IVP 03/06/18 16:10 1 mg O ONE Administration Bumetanide 1 mg 03/06/18 16:10 03/06/18 18:09 Bumex 1 Mg/4 Ml Inj. IVP 03/06/18 16:11 1 mg O ONE Administration Bumetanide 1 mg 03/06/18 16:11 03/06/18 16:11 Bumex 1 Mg/4 Ml Inj. IVP 03/06/18 16:12 1 mg O ONE Administration Bumetanide 2 mg 03/07/18 21:00 03/10/18 21:33 Bumex 1 Mg/4 Ml Inj. IVP Not Given QID WILLAM Bumetanide 2 mg 03/08/18 15:00 03/09/18 04:06 Bumex 1 Mg/4 Ml Inj. IVP Not Given Q6HR WILLAM Bumetanide 1 mg 03/09/18 09:00 03/10/18 08:16 Bumex 1 Mg/4 Ml Inj. IVP 1 mg BID WILLAM Administration Bumetanide 1 mg 03/09/18 14:33 03/09/18 15:41 Bumex 1 Mg/4 Ml Inj. IVP 03/09/18 14:34 1 mg O ONE Administration Bumetanide 2 mg 03/10/18 16:07 03/10/18 20:15 Bumex 1 Mg Tab PO 2 mg [id number] WILLAM Administration Carvedilol 3.125 mg 03/07/18 10:53 03/10/18 07:52 Coreg PO 3.125 mg BIDWM WILLAM Administration Carvedilol 6.25 mg 03/10/18 16:37 03/13/18 09:29 Coreg PO 6.25 mg BIDWM WILLAM Administration Carvedilol 3.125 mg 03/14/18 09:00 03/17/18 08:28 Coreg PO 3.125 mg BIDWM WILLAM Administration Device 1 each 03/07/18 12:57 03/07/18 12:[facility] 03/07/[facility] 12:58 1 each O ONE Administration Furosemide 40 mg 03/16/18 18:23 03/16/18 18:25 Lasix 40 Mg/4 Ml IVP 03/16/18 18:24 40 mg O ONE Administration Furosemide 40 mg 03/16/18 19:04 03/16/18 19:05 Lasix 40 Mg/4 Ml IVP 03/16/18 19:05 40 mg O ONE Administration Heparin Sodium (Beef Lung) 6,000 unit 03/06/18 17:04 03/06/18 17:22 Heparin Bolus IVP 03/06/18 17:05 6,000 unit O ONE Administration Heparin Sodium (Beef Lung) 5,000 unit 03/06/18 22:04 03/06/18 22:10 Heparin Bolus IVP 03/06/18 22:05 5,000 unit O ONE Administration Heparin Sodium (Beef Lung) 2,000 unit 03/07/18 09:00 03/07/18 09:21 Heparin Bolus IVP 03/07/18 09:01 2,000 unit O ONE Administration Heparin Sodium (Porcine) 1 each 03/06/18 16:17 Pharmacy Consult - Heparin 03/06/18 16:18 ONE TIME ONE Heparin Sodium (Porcine) 5,000 units 03/09/18 09:00 03/09/18 21:31 Heparin Sq SQ 5,000 units Q12HR WILLAM Administration Heparin Sodium (Porcine) 5,000 units 03/11/18 09:00 03/14/18 09:26 Heparin Sq SQ 5,000 units Q12HR WILLAM Administration Bumetanide 25 mg/ IV Solution 100 mls @ 2 mls/hr 03/06/18 16:15 03/07/18 18: 19 IV Not Given Q24H WILLAM Heparin Sodium (Porcine) 20,000 unit in 500 mls @ 30 mls/hr 03/06/18 17:05 14:00 Heparin Drip IV Infused .[id number] WILLAM Titration Protocol 1,200 UNIT/HR Amiodarone HCl 900 mg/ Sodium 500 mls @ 16.66 mls/hr 03/07/18 00:31 03/08/18 12:41 Chloride IV Not Given .Q24H WILLAM 0.5 MG/MIN Amiodarone HCl 450 mg/ Sodium 250 mls @ 33.33 mls/hr 03/06/18 18:30 03/07/18 02:11 Chloride IV 03/07/18 00:30 Infused .[id number] WILLAM Infusion 1 MG/MIN Amiodarone HCl 150 mg/ Sodium 103 mls @ 618 mls/hr 03/06/18 18:20 03/06/18 19 :59 Chloride IV 03/06/18 18:29 Infused O ONE Infusion Heparin Sodium (Porcine) 20,000 unit in 500 mls @ 35 mls/hr 03/07/18 09:00 09:19 Heparin Drip IV Not Given .[id number] WILLAM Protocol 1,400 UNIT/HR Sodium Chloride 1,000 mls @ 50 mls/hr 03/07/18 14:30 03/08/18 06:17 Normal Saline IV 03/08/18 00:30 50 mls/hr .Q20H WILLAM Infusion Cefazolin Sodium 1 g/ Sodium 100 mls @ 200 mls/hr 03/11/18 01:00 03/11/18 09: 37 Chloride IV 03/11/18 09:29 Infused Q8HR WILLAM Infusion Dopamine HCl/Dextrose 400 mg in 250 mls @ 7.073 mls/hr 03/12/18 09:46 Dopamine Drip IV .Q24H PRN Protocol 2 MCG/KG/MIN Sodium Chloride 1,000 mls @ 75 mls/hr 03/12/18 10:00 03/13/18 00:44 Normal Saline IV 03/12/18 23:19 Infused .[id number] WILLAM Infusion Dopamine HCl/Dextrose 400 mg in 250 mls @ 7.073 mls/hr 03/12/18 11:15 16:06 Dopamine Drip IV Not Given .Q24H WILLAM Protocol 2 MCG/KG/MIN Vancomycin HCl 1,000 mg/ 250 mls @ 250 mls/hr 03/14/18 08:05 03/14/18 11:38 Sodium Chloride IV 03/14/18 08:06 Infused O ONE Infusion Sodium Chloride 1,000 mls @ 125 mls/hr 03/14/18 08:15 03/14/18 18:24 Normal Saline IV 03/14/18 16:14 Infused .Q8H WILLAM Infusion Milrinone Lactate/Dextrose 20 mg in 100 mls @ 11.295 mls/hr 03/14/18 15:06 03:00 Milrinone Drip Premix IV Infused .[id number] WILLAM Infusion Protocol 0.375 MCG/KG/MIN Sodium Chloride 1,000 mls @ 75 mls/hr 03/14/18 15:06 03/14/18 15:40 Normal Saline IV 75 mls/hr .[id number] WILLAM Administration Dopamine HCl/Dextrose 400 mg in 250 mls @ 7.665 mls/hr 03/16/18 15:36 17:50 Dopamine Drip IV Infused .Q24H PRN Titration Protocol 2 MCG/KG/MIN Losartan Potassium 25 mg 03/07/18 11:00 03/08/18 12:50 Cozaar PO 25 mg DAILY WILLAM Administration Magnesium Hydroxide 30 ml 03/07/18 12:50 Mom PO DAILY PRN Constipation Methylprednisolone Sodium Succinate 125 mg 03/16/18 18:29 03/16/18 18:15 Solu-Medrol IVP 03/16/18 18:30 125 mg O ONE Administration Minocycline HCl 100 mg 03/11/18 21:00 03/18/18 08:01 Minocin PO 03/18/18 20:59 100 mg BID WILLAM Administration Mirabegron 50 mg 03/07/18 09:00 03/08/18 08:38 Myrbetriq PO 50 mg DAILY WILLAM Administration Morphine Sulfate 2 - 4 mg 03/07/18 14:20 Morphine Sulfate Inj IVP 03/08/18 14:19 Q2H PRN Pain Ondansetron HCl 4 mg 03/06/18 18:28 Zofran IVP Q6H PRN Nausea &/or vomiting Pharmacy Consult 1 each 03/11/18 15:34 Pharmacy Consult - Fall Risk [facility] 03/11/18 15:35 ONE TIME ONE Potassium Chloride 20 meq 03/08/18 21:23 03/08/18 22:08 K-Dur 20 Meq Tablet PO 03/08/18 21:24 20 meq O ONE Administration Potassium Chloride 20 meq 03/09/18 14:33 03/11/18 08:59 K-Dur 20 Meq Tablet PO 20 meq WB WILLAM Administration Potassium Chloride 40 meq 03/16/18 08:40 03/16/18 09:03 K-Dur 20 Meq Tablet PO 03/16/18 08:41 40 meq O ONE Administration Tamsulosin HCl 0.4 mg 03/07/18 18:00 03/08/18 19:04 Flomax PO 0.4 mg 1800 WILLAM Administration - Urinary Catheter Management Urethral Cath placed during this visit: no Results 03/19/18 04:08 03/19/18 04:08 Cardiac Enzymes 03/19/18 Range/Units 04:08 AST 86 H (17-59) U/L CBC 03/19/18 Range/Units 04:08 WBC 17.8 H (4.5-11.0) T/MM3 RBC 4.25 L (4.50-5.90) M/MM3 Hgb 13.7 D (13.5-17.5) GM/DL Hct 42.4 D (41-53) % Plt Count 99 L (130-400) T/MM3 Neut # (Auto) Not performed Lymph # (Auto) Not performed [place] # (Auto) Not performed Eos # (Auto) Not performed Baso # (Auto) Not performed Comprehensive Metabolic Panel 03/19/18 Range/Units 04:08 Sodium 139 (134-144) MEQ/L Potassium 4.6 (3.6-5) MEQ/L Chloride 98 (98-107) MEQ/L Carbon Dioxide 29 (22-30) MEQ/L BUN 83.0 H* (9-20) MG/DL Creatinine 2.3 H D (0.8-1.5) mg/dL Glucose 100 (75-110) MG/DL Calcium 8.5 (8.4-10.2) MG/DL AST 86 H (17-59) U/L ALT 237 H (1-50) U/L Alkaline Phosphatase 87 (38-126) U/L Total Protein 6.5 (6.3-8.2) g/dL Albumin 3.4 L (3.5-5.0) g/dL Intake and Output 03/18/18 03/19/18 03/19/18 22:59 06:59 14:59 Intake Total 700 / 700 320 / 320 460 / 460 Output Total 500 / 500 400 / 400 Balance 200 / 200 -80 / -80 460 / 460 Intake: IV 100 / 100 100 / 100 100 / 100 Piperacillin/Tazobactam 2.25 gm 100 / 100 100 / 100 100 / 100 In Ns 100 ml @ 200 mls/hr IV Q8H [facility] Rx#:[id number] Oral 600 / 600 220 / 220 360 / 360 Output: Urine Amount (Catheter) 500 / 500 400 / 400 Other: Urine Appearance Cloudy Cloudy Urine Color Dark Dark Yellow Stool Color Brown Brown Stool Consistency Soft Soft Size of Bowel Movement Large Small # Bowel Movements 1 Weight 103.6 kg Patient Weight 03/20/18 06:59 Weight 103.6 kg Assessment and Plan - Assessment and Plan (1) Cardiomyopathy Current visit: Yes Status: Chronic (2) HTN (hypertension) Current visit: Yes Status: Chronic (3) CAD (coronary artery disease) Current visit: Yes Status: Chronic (4) CKD (chronic kidney disease) Current visit: Yes Status: Chronic (5) Hyperlipidemia Current visit: Yes Status: Chronic (6) Acute dyspnea Current visit: No Status: Acute (7) Acute systolic CHF (congestive heart failure) Current visit: Yes Status: Acute (8) SVT (supraventricular tachycardia) Current visit: No Status: Acute (9) NSTEMI (non-ST elevated myocardial infarction) Current visit: Yes Status: Acute (10) Acute renal failure superimposed on chronic kidney disease Current visit: Yes Status: Acute - Attestation Attestation Narrative: 03/19/18 13:17 Recommendation After examining the patient I agree with the above assessment. I am involved in the formulation of the patient's plan of care. Hospital Course Summary Disclaimer: The visit summary below is not to be considered part of the above Progress Note.
--- NOTE | 2018-03-17 16:08 | Progress Note ---
- Date 03/17/18 Subjective: F/U: Acute resp failure, pulm edema, pneumonia Resting in bed with BiPAP. Feels thirsty, want a drink of water. Breathing fair- needing BiPAP for support. Tolerating BiPAP. Notes some SOA/congestion. No pain with breathing. No nausea or ab pain. Had large stool yesterday; one incontinent stool today. Objective Vital signs: Temperature 97.3 F 03/17/18 15:30 Pulse Rate 77 03/17/18 15:30 Respiratory Rate 19 03/17/18 15:30 Blood Pressure 130/71 03/17/18 15:00 Pulse Oximetry 96 03/17/18 15:30 Height/Weight/BMI: Height 1.73 m Weight 101.3 kg Body Mass Index 35.0 - Constitutional Present: moderate distress, well nourished, well developed, obese, cooperative - Routine HEENT Exam Head: Present: normocephalic, atraumatic Eye: Present: EOMI, PERRL - Routine Respiratory Exam Present: decreased breath sounds, rhonchi, crackles, distant breath sounds - Routine Cardiovascular Exam Present: RRR - Routine Abdominal Exam Present: soft, non tender. Absent: normoactive bowel sounds (Decreased ) - Routine Extremities Exam Present: edema (+2 LE). Absent: cyanosis, clubbing - Routine Musculoskeletal Exam Musculoskeletal: Present: no clubbing or cyanosis - Routine Skin Exam Present: dry, warm, wounds (ICD wound covered with steri-strips and dry) - Routine Neurological Exam Present: alert, moving all extremities, vision grossly intact, hearing grossly intact - Routine Psychiatric Exam Present: cooperative Results - Labs CBC & Chem 7: 03/17/18 04:00 03/17/18 04:00 Microbiology Results: Microbiology 03/16/18 17:44 Sputum, Expectorated Gram Stain - Final 03/16/18 17:44 Sputum, Expectorated Sputum Culture - Preliminary Culture Initiated - Results Pending 03/14/18 08:17 Peripheral/Iv Start Blood Culture - Preliminary No Growth After 3 Days 03/10/18 09:48 Peripheral/Iv Start Gram Stain - Final Not performed 03/10/18 09:48 Peripheral/Iv Start Blood Culture - Final No Growth After 5 Days 03/10/18 09:47 Peripheral/Iv Start Gram Stain - Final Not performed 03/10/18 09:47 Peripheral/Iv Start Blood Culture - Final No Growth After 5 Days Assessment and Plan (1) Leukocytosis Current visit: Yes Status: Acute Assessment and Plan: Assessment Suspect pneumonia - infiltrate on CXR decreasing Leukocytosis Pulmonary edema Acute Dyspnea/Hypoxic respiratory failure - tolerating BiPAP Mild acidosis with +AG - resolved. VT/SVT S/P cardioversion -Bi V ICD placed on 03/10/18 -On amiodarone 200mg BID, On Beta clarita with hold parameters for BP PAF - Self converted Elevated LFTs Severe, Dilated, Non ischemic Cardiomyopathy -EF 10% with severe MR -Pt admits heavy ETOH consumption 6-12 beers daily for many years prior to one year ago. -On Coreg with hold parameters for BP -Not on JAGDISH I or ARB due to low normal BP and acute on CKD -Bi V ICD placed Systolic Heart failure Hyperlipidemia -On a statin-hold for now due to elevated LFTs Hypertension NSTEMI - Likely Type 2 Mild thrombocytopenia (Not POA) PAD Acute Kidney injury - improving Stage III CKD Hyperkalemia (Not POA) Hypokalemia (Not POA) Thrush Abdominal distention - ileus vs constipation Schizophrenia Depression History of CVA Chronic pain Obesity Plan Continue with Zosyn for pulmonary coverage. Continue Neb treatments and BiPAP for respiratory support. Renal status improving - creatinine decreasing and weight/urine output improving. Cardiac care and medications as per cardiology. Will recheck CBC in am to to resolving leukocytosis/pneumonia. Will recheck CMP in am due to JIMMIE and elevated LFTs. Case discussed with pt's mother. Time spent with patient care 25 minutes. DVT Prophylaxis: SCD's Resuscitation Status: Full Code - Time spent with patient Time with patient PN: 25 minutes - Physician Narrative Physician: Jj Serna MD Narrative: Date: 03/17/18 Time: 160 Hospital Course Summary Disclaimer: The visit summary below is not to be considered part of the above Progress Note. Hospital Course: Impression Leukocytosis Tachycardia Elevated LFTs Cardiomyopathy- with acute systolic failure Non-STEMI V. tach hyperlipidemia Hypertension Coronary artery disease Schizophrenia Depression History of CVA Plan Continued cardiology care as per Dr. Stahl, planning for pacemaker/ defibrillator placement later today. Patient doesn't meet nursing sepsis criteria. Given tachycardia, tachypnea and leukocytosis. All 3 of these may be multifactorial including severe cardiomyopathy and respiratory distress. Will obtain UA, Lactate and Blood cultures, Chest Xray to rule out infectious etiology Given respiratory distress will consult pulmonary, Dr Gibbs for evaluation and recommendations Monitor renal function- known CKD- Inspector Bicycle 2.2 (Baseline Inspector Bicycle 1.6) Continues on scheduled Bumex for diuresis- Monitor renal function Appreciate medical consultation. Will continue to follow patient. At time if discharge medical care is to return to PCP in Dr Hilda Self Case discussed with attending, Dr Serna
[2018-03-17] MEDS: HEPARIN SUB-Q 5,000units/0.5ml INJECTION SQ SCH (17:11)
[2018-03-17] MEDS: RANITIDINE 150 MG TABLET PO SCH (17:11)
[2018-03-17] MEDS: ONDANSETRON 4 MG/2 ML INJECTION IVP PRN ×2 (18:25→23:37)
[2018-03-18] MEDS: HEPARIN SUB-Q 5,000units/0.5ml INJECTION SQ SCH ×3 (00:01→17:15)
[2018-03-18] MEDS: TRAMADOL 50 MG TABLET PO PRN (01:13)
[2018-03-18] MEDS: ALBUTEROL/IPRATROPIUM 2.5mg-0.5mg/3ml NEB AEROSOL SCH ×4 (06:45→20:04)
[2018-03-18] MEDS: ASPIRIN *EC* 81 MG TABLET PO SCH (08:00)
[2018-03-18] MEDS: AMIODARONE 200 MG TABLET PO SCH ×2 (08:00→20:41)
[2018-03-18] MEDS: CLOPIDOGREL 75 MG TABLET PO SCH (08:00)
[2018-03-18] MEDS: DOCUSATE SODIUM 100 MG CAPSULE PO SCH ×2 (08:01→20:42)
[2018-03-18] MEDS: NYSTATIN 500,000 units/5 ml ORAL LIQUID PO SCH ×3 (08:01→20:43)
[2018-03-18] MEDS: MINOCYCLINE 100 MG CAPSULE PO SCH (08:01)
[2018-03-18] MEDS: PIPERACILLIN/TAZOBACTAM 2.25 GM in NS 100 ML IV SCH ×2 (08:01→17:10)
[2018-03-18] MEDS: CARVEDILOL 3.125 MG TABLET PO SCH (09:44)
[2018-03-18] MEDS: LEVOTHYROXINE 125 MCG TABLET PO SCH (09:44)
--- NOTE | 2018-03-18 09:55 | XRay Report ---
Indication: infiltrates PROCEDURE: XR chest 1V: Encounter: Initial Comparison: March 17, 2018 Findings: Support devices are stable. Slightly improved airspace consolidation in the right lung base. No new or worsening airspace disease. No pneumothorax or significant effusion. Heart size and mediastinal contours are stable. Pulmonary vascularity is stable. Impression: Slightly improved aeration of the right lung base. .
--- NOTE | 2018-03-18 10:14 | Cardiology Progress Note ---
<Kylee Richards - Last Filed: 03/19/18 12:00> Subjective Principal diagnosis: SCHF, NSTEMI Interval history: Mirza is seen in follow up for NSTEMI, SVT, and sustained VT that required cardioversion at bedside. He is awake and alert, states he's doing better today , asks about going home. He denies chest pain or pressure, SOA, dizziness or nausea. Exam Vital signs: Temperature 97.6 F 03/18/18 04:00 Pulse Rate 87 03/18/18 08:00 Respiratory Rate 21 03/18/18 07:00 Blood Pressure 145/82 H 03/18/18 07:00 Pulse Oximetry 94 03/18/18 07:00 Inpatient Medications: Generic Name Dose Route Start Last Admin Trade Name Freq PRN Reason Stop Dose Admin Acetaminophen 325 - 650 mg 03/07/18 14:20 03/14/18 21:51 Tylenol PO 650 mg Q5H PRN Administration Pain Hydrocodone Bitart/Acetaminophen 1 - 2 tab 03/07/18 14:20 03/17/18 22:37 [place] 5/325 PO 1 tab Q5H PRN Administration Pain Al Hydroxide/Mg Hydroxide 30 ml 03/07/18 14:20 Maalox Plus PO Q3H PRN Indigestion Albuterol Sulfate 2.5 mg 03/12/18 02:04 03/12/18 02:06 Proventil Neb (0.083%) AEROSOL 2.5 mg Q2HR PRN Administration Albuterol/Ipratropium 3 ml 03/10/18 11:00 03/18/18 06:45 Duoneb AEROSOL 3 ml RTQID WILLAM Administration Amiodarone HCl 200 mg 03/08/18 21:25 03/18/18 08:00 Pacerone PO 200 mg BID WILLAM Administration Aspirin 81 mg 03/07/18 09:00 03/18/18 08:00 Ecotrin PO 81 mg DAILY WILLAM Administration Atropine Sulfate 0.5 mg 03/07/18 14:20 Atropine IVP Q5M PRN Bradycardia Bisacodyl 5 - 10 mg 03/07/18 14:20 03/15/18 19:08 Dulcolax PO 5 mg DAILY PRN Administration Constipation Bisacodyl 10 mg 03/07/18 14:20 Dulcolax RECTALLY DAILY PRN Constipation Budesonide/Formoterol Fumarate 2 puff 03/07/18 12:39 03/17/18 19:08 Symbicort Inhaler ORAL INH 2 puff BID WILLAM Administration Carvedilol 3.125 mg 03/18/18 08:17 03/18/18 09:44 Coreg PO 3.125 mg BIDWM WILLAM Administration Clopidogrel Bisulfate 75 mg 03/07/18 09:00 03/18/18 08:00 Plavix PO 75 mg DAILY WILLAM Administration Docusate Sodium 100 mg 03/07/18 21:00 03/18/18 08:01 Colace PO 100 mg BID WILLAM Administration Docusate Sodium 100 mg 03/07/18 12:50 Colace PO BID PRN Heparin Sodium (Porcine) 5,000 units 03/17/18 17:00 03/18/18 08:01 Heparin Sq SQ 5,000 units Q8HR WILLAM Administration Piperacillin Sod/Tazobactam 100 mls @ 200 mls/hr 03/14/18 08:15 03/18/18 08: 01 Sod 2.25 gm/ Sodium Chloride IV 200 mls/hr Q8H WILLAM Administration Sodium Chloride 1,000 mls @ 75 mls/hr 03/14/18 15:06 03/14/18 15:40 Normal Saline IV 75 mls/hr .[id number] WILLAM Administration Levothyroxine Sodium 250 mcg 03/08/18 06:30 03/16/18 06:14 Synthroid PO 250 mcg SUSA@0630 WILLAM Administration Levothyroxine Sodium 125 mcg 03/10/18 06:30 03/18/18 09:44 Synthroid PO 125 mcg MOTUWETHFR@0630 WILLAM Administration Lorazepam 0.5 - 1 mg 03/07/18 14:20 03/17/18 22:37 Ativan PO 0.5 mg Q4H PRN Administration Anxiety Lorazepam 0.5 - 1 mg 03/07/18 14:20 03/17/18 02:43 Ativan Inj IVP 0.5 mg Q4H PRN Administration Anxiety Magnesium Hydroxide 30 ml 03/07/18 14:20 03/15/18 20:02 Mom PO 30 ml DAILY PRN Administration Constipation Metoclopramide HCl 5 - 10 mg 03/07/18 14:20 03/13/18 01:47 Reglan IVP 10 mg Q6H PRN Administration Nausea &/or vomiting Minocycline HCl 100 mg 03/11/18 21:00 03/18/18 08:01 Minocin PO 03/18/18 20:59 100 mg BID WILLAM Administration Morphine Sulfate 2 - 4 mg 03/07/18 14:20 Morphine Sulfate Inj IVP Q5M PRN Angina Nitroglycerin 0.4 mg 03/07/18 14:20 Nitrostat SL Q5M PRN Angina Nystatin 5 ml 03/16/18 17:00 03/18/18 08:01 Mycostatin PO 5 ml QID WILLAM Administration Ondansetron HCl 4 mg 03/07/18 14:20 03/17/18 23:37 Zofran IVP 4 mg Q6H PRN Administration Nausea &/or vomiting Polyethylene Glycol 17 gm 03/16/18 09:00 03/17/18 08:27 Miralax PO 17 gm DAILY WILLAM Administration Promethazine HCl 12.5 - 25 mg 03/07/18 14:20 Phenergan Inj IVP Q6HR PRN Nausea &/or vomiting Ranitidine HCl 150 mg 03/07/18 18:00 03/17/18 17:11 Zantac PO 150 mg 1800 WILLAM Administration Sodium Chloride 10 - 80 ml 03/09/18 14:34 03/17/18 02:43 Iv Flush IV 20 ml PRN PRN Administration Flushing Sodium Chloride 10 ml 03/10/18 20:02 Iv Flush IV PRN PRN Flushing Tramadol HCl 50 mg 03/06/18 18:28 03/18/18 01:13 Ultram PO 50 mg Q6H PRN Administration Pain Discontinued Medications Generic Name Dose Route Start Last Admin Trade Name Freq PRN Reason Stop Dose Admin Acetaminophen 650 mg 03/06/18 18:27 Tylenol PO Q5H PRN Pain Adenosine 6 mg 03/06/18 16:02 03/06/18 16:02 Adenocard IVP 03/06/18 16:03 6 mg O ONE Administration Adenosine 12 mg 03/06/18 16:06 03/06/18 16:06 Adenocard IVP 03/06/18 16:07 12 mg O ONE Administration Atorvastatin Calcium 20 mg 03/07/18 18:00 03/10/18 21:34 Lipitor PO Not Given 1800 WILLAM Atorvastatin Calcium 20 mg 03/08/18 21:00 03/15/18 20:02 Lipitor PO 20 mg HS WILLAM Administration Budesonide/Formoterol Fumarate 2 puff 03/07/18 21:00 Symbicort Inhaler ORAL INH BID WILLAM Bumetanide 1 mg 03/06/18 16:09 03/06/18 18:08 Bumex 1 Mg/4 Ml Inj. IVP 03/06/18 16:10 1 mg O ONE Administration Bumetanide 1 mg 03/06/18 16:10 03/06/18 18:09 Bumex 1 Mg/4 Ml Inj. IVP 03/06/18 16:11 1 mg O ONE Administration Bumetanide 1 mg 03/06/18 16:11 03/06/18 16:11 Bumex 1 Mg/4 Ml Inj. IVP 03/06/18 16:12 1 mg O ONE Administration Bumetanide 2 mg 03/07/18 21:00 03/10/18 21:33 Bumex 1 Mg/4 Ml Inj. IVP Not Given QID WLILAM Bumetanide 2 mg 03/08/18 15:00 03/09/18 04:06 Bumex 1 Mg/4 Ml Inj. IVP Not Given Q6HR WILLAM Bumetanide 1 mg 03/09/18 09:00 03/10/18 08:16 Bumex 1 Mg/4 Ml Inj. IVP 1 mg BID WILLAM Administration Bumetanide 1 mg 03/09/18 14:33 03/09/18 15:41 Bumex 1 Mg/4 Ml Inj. IVP 03/09/18 14:34 1 mg O ONE Administration Bumetanide 2 mg 03/10/18 16:07 03/10/18 20:15 Bumex 1 Mg Tab PO 2 mg [id number] WILLAM Administration Carvedilol 3.125 mg 03/07/18 10:53 03/10/18 07:52 Coreg PO 3.125 mg BIDWM WILLAM Administration Carvedilol 6.25 mg 03/10/18 16:37 03/13/18 09:29 Coreg PO 6.25 mg BIDWM WILLAM Administration Carvedilol 3.125 mg 03/14/18 09:00 03/17/18 08:28 Coreg PO 3.125 mg BIDWM WILLAM Administration Device 1 each 03/07/18 12:57 03/07/18 12:59 [facility] 03/07/18 12:58 1 each O ONE Administration Furosemide 40 mg 03/16/18 18:23 03/16/18 18:25 Lasix 40 Mg/4 Ml IVP 03/16/18 18:24 40 mg O ONE Administration Furosemide 40 mg 03/16/18 19:04 03/16/18 19:05 Lasix 40 Mg/4 Ml IVP 03/16/18 19:05 40 mg O ONE Administration Heparin Sodium (Beef Lung) 6,000 unit 03/06/18 17:04 03/06/18 17:22 Heparin Bolus IVP 03/06/18 17:05 6,000 unit O ONE Administration Heparin Sodium (Beef Lung) 5,000 unit 03/06/18 22:04 03/06/18 22:10 Heparin Bolus IVP 03/06/18 22:05 5,000 unit O ONE Administration Heparin Sodium (Beef Lung) 2,000 unit 03/07/18 09:00 03/07/18 09:21 Heparin Bolus IVP 03/07/18 09:01 2,000 unit O ONE Administration Heparin Sodium (Porcine) 1 each 03/06/18 16:17 Pharmacy Consult - Heparin 03/06/18 16:18 ONE TIME ONE Heparin Sodium (Porcine) 5,000 units 03/09/18 09:00 03/09/18 21:31 Heparin Sq SQ 5,000 units Q12HR WILLAM Administration Heparin Sodium (Porcine) 5,000 units 03/11/18 09:00 03/14/18 09:26 Heparin Sq SQ 5,000 units Q12HR WILLAM Administration Bumetanide 25 mg/ IV Solution 100 mls @ 2 mls/hr 03/06/18 16:15 03/07/18 18: 19 IV Not Given Q24H [facility] Heparin Sodium (Porcine) 20,000 unit in 500 mls @ 30 mls/hr 03/06/18 17:05 14:00 Heparin Drip IV Infused .[id number] WILLAM Titration Protocol 1,200 UNIT/HR Amiodarone HCl 900 mg/ Sodium 500 mls @ 16.66 mls/hr 03/07/18 00:31 03/08/18 12:41 Chloride IV Not Given .Q24H WILLAM 0.5 MG/MIN Amiodarone HCl 450 mg/ Sodium 250 mls @ 33.33 mls/hr 03/06/18 18:30 03/07/18 02:11 Chloride IV 03/07/18 00:30 Infused .[id number] WILLAM Infusion 1 MG/MIN Amiodarone HCl 150 mg/ Sodium 103 mls @ 618 mls/hr 03/06/18 18:20 03/06/18 19 :59 Chloride IV 03/06/18 18:29 Infused O ONE Infusion Heparin Sodium (Porcine) 20,000 unit in 500 mls @ 35 mls/hr 03/07/18 09:00 09:19 Heparin Drip IV Not Given .[id number] WILLAM Protocol 1,400 UNIT/HR Sodium Chloride 1,000 mls @ 50 mls/hr 03/07/18 14:30 03/08/18 06:17 Normal Saline IV 03/08/18 00:30 50 mls/hr .Q20H WILLAM Infusion Cefazolin Sodium 1 g/ Sodium 100 mls @ 200 mls/hr 03/11/18 01:00 03/11/18 09: 37 Chloride IV 03/11/18 09:29 Infused Q8HR WILLAM Infusion Dopamine HCl/Dextrose 400 mg in 250 mls @ 7.073 mls/hr 03/12/18 09:46 Dopamine Drip IV .Q24H PRN Protocol 2 MCG/KG/MIN Sodium Chloride 1,000 mls @ 75 mls/hr 03/12/18 10:00 03/13/18 00:44 Normal Saline IV 03/12/18 23:19 Infused .[id number] WILLAM Infusion Dopamine HCl/Dextrose 400 mg in 250 mls @ 7.073 mls/hr 03/12/18 11:15 16:06 Dopamine Drip IV Not Given .Q24H WILLAM Protocol 2 MCG/KG/MIN Vancomycin HCl 1,000 mg/ 250 mls @ 250 mls/hr 03/14/18 08:05 03/14/18 11:38 Sodium Chloride IV 03/14/18 08:06 Infused O ONE Infusion Sodium Chloride 1,000 mls @ 125 mls/hr 03/14/18 08:15 03/14/18 18:24 Normal Saline IV 03/14/18 16:14 Infused .Q8H WILLAM Infusion Milrinone Lactate/Dextrose 20 mg in 100 mls @ 11.295 mls/hr 03/14/18 15:06 03:00 Milrinone Drip Premix IV Infused .Q8H52M WILLAM Infusion Protocol 0.375 MCG/KG/MIN Dopamine HCl/Dextrose 400 mg in 250 mls @ 7.665 mls/hr 03/16/18 15:36 17:50 Dopamine Drip IV Infused .Q24H PRN Titration Protocol 2 MCG/KG/MIN Losartan Potassium 25 mg 03/07/18 11:00 03/08/18 12:50 Cozaar PO 25 mg DAILY WILLAM Administration Magnesium Hydroxide 30 ml 03/07/18 12:50 Mom PO DAILY PRN Constipation Methylprednisolone Sodium Succinate 125 mg 03/16/18 18:29 03/16/18 18:15 Solu-Medrol IVP 03/16/18 18:30 125 mg O ONE Administration Mirabegron 50 mg 03/07/18 09:00 03/08/18 08:38 Myrbetriq PO 50 mg DAILY WILLAM Administration Morphine Sulfate 2 - 4 mg 03/07/18 14:20 Morphine Sulfate Inj IVP 03/08/18 14:19 Q2H PRN Pain Ondansetron HCl 4 mg 03/06/18 18:28 Zofran IVP Q6H PRN Nausea &/or vomiting Pharmacy Consult 1 each 03/11/18 15:34 Pharmacy Consult - Fall Risk 03/11/18 15:35 ONE TIME ONE Potassium Chloride 20 meq 03/08/18 21:23 03/08/18 22:08 K-Dur 20 Meq Tablet PO 03/08/18 21:24 20 meq O ONE Administration Potassium Chloride 20 meq 03/09/18 14:33 03/11/18 08:59 K-Dur 20 Meq Tablet PO 20 meq WB WILLAM Administration Potassium Chloride 40 meq 03/16/18 08:40 03/16/18 09:03 K-Dur 20 Meq Tablet PO 03/16/18 08:41 40 meq O ONE Administration Tamsulosin HCl 0.4 mg 03/07/18 18:00 03/08/18 19:04 Flomax PO 0.4 mg 1800 WILLAM Administration - Constitutional no acute distress, well nourished, cooperative - Routine HEENT Exam Head: Present: normocephalic ENT: Present: mucous membranes dry - Routine Neck Exam Absent: JVD, carotid bruit - Routine Chest/Breast/Axilla Exam Chest wall: Present: tenderness, pacemaker - Routine Respiratory Exam Present: decreased breath sounds. Absent: dyspnea - Routine Cardiovascular Exam Present: RRR, no murmur - Routine Abdominal Exam Present: soft, non tender - Routine Extremities Exam Present: edema - Routine Skin Exam Present: intact, dry, warm - Routine Neurological Exam Present: alert, oriented X3 - Routine Psychiatric Exam Present: normal affect, normal thought process - Urinary Catheter Management Urethral Cath placed during this visit: yes Urethral indwelling: Yes Insertion date: 03/06/18 Insertion time: 16:15 Results 03/18/18 04:14 03/18/18 04:14 Cardiac Enzymes 03/18/18 Range/Units 04:14 AST 103 H D (17-59) U/L CBC 03/18/18 Range/Units 04:14 WBC 19.2 H D (4.5-11.0) T/MM3 RBC 3.64 L (4.50-5.90) M/MM3 Hgb 11.9 L (13.5-17.5) GM/DL Hct 35.7 L (41-53) % Plt Count 105 L (130-400) T/MM3 Neut # (Auto) Not performed Lymph # (Auto) Not performed Gove # (Auto) Not performed Eos # (Auto) Not performed Baso # (Auto) Not performed Comprehensive Metabolic Panel 03/18/18 Range/Units 04:14 Sodium 138 (134-144) MEQ/L Potassium 4.0 (3.6-5) MEQ/L Chloride 96 L (98-107) MEQ/L Carbon Dioxide 30 (22-30) MEQ/L BUN 86.0 H* (9-20) MG/DL Creatinine 2.0 H D (0.8-1.5) mg/dL Glucose 297 H (75-110) MG/DL Calcium 8.5 (8.4-10.2) MG/DL AST 103 H D (17-59) U/L ALT 270 H (1-50) U/L Alkaline Phosphatase 97 (38-126) U/L Total Protein 6.3 (6.3-8.2) g/dL Albumin 3.4 L (3.5-5.0) g/dL Intake and Output 04/30/18 05/01/18 05/01/18 22:59 06:59 14:59 Intake Total 290.594 / 290.594 529.406 / 529.406 Output Total 568 / 568 520 / 520 185 / 185 Balance -277.406 / -277.406 9.406 / 9.406 -185 / -185 Intake: IV 170.594 / 170.594 129.406 / 129.406 Milrinone Drip 20 mg In 100 ml 70.594 / 70.594 29.406 / 29.406 @ 0.375 MCG/KG/MIN 11.295 mls/ hr IV .Q8H52M [facility] Rx#:[id number] Piperacillin/Tazobactam 2.25 gm 100 / 100 100 / 100 In Ns 100 ml @ 200 mls/hr IV Q8H [facility] Rx#:[id number] Oral 120 / 120 400 / 400 Output: Urine Amount (Catheter) 568 / 568 520 / 520 185 / 185 Other: Urine Appearance Sediment Sediment Sediment Urine Color Yellow Yellow Yellow # Incontinent Voids 1 - Imaging and Cardiology Imaging & Cardiology Narrative: Date of Exam: 03/18/18 Ordering Provider: Amber Rushing APRN Type of Exam(s): XR chest 1V Reason for Exam(s): infiltrates Indication: infiltrates PROCEDURE: XR chest 1V: Encounter: Initial Comparison: March 17, 2018 Findings: Support devices are stable. Slightly improved airspace consolidation in the right lung base. No new or worsening airspace disease. No pneumothorax or significant effusion. Heart size and mediastinal contours are stable. Pulmonary vascularity is stable. Impression: Slightly improved aeration of the right lung base. 03/18/18 10:13 Assessment and Plan - Assessment and Plan (1) Cardiomyopathy Status: Chronic (2) HTN (hypertension) Status: Chronic (3) CAD (coronary artery disease) Status: Chronic (4) CKD (chronic kidney disease) Status: Chronic (5) Hyperlipidemia Status: Chronic (6) Acute dyspnea Status: Acute (7) Acute systolic CHF (congestive heart failure) Status: Acute (8) SVT (supraventricular tachycardia) Status: Acute (9) NSTEMI (non-ST elevated myocardial infarction) Status: Acute (10) Acute renal failure superimposed on chronic kidney disease Status: Acute - Assessment and Plan 03/12/2018 NSTEMI (non-ST elevated myocardial infarction) - Troponin 1) 0.239, 2) 0.236, 3)0.320 4.)0.412 - WBC trending up VT/ SVT (supraventricular tachycardia) - Continue amiodarone 200 mg PO BID - EKG in am - Bi-V AICD in place - EKG: Sinus Tachycardia, no acute changes - Monitor on tele Acute dyspnea - Presented from [facility] on 4l/NC - [facility], on 4L per NC this am - CXR no pneumothorax. Mild pulmonary vascular congestion or edema. Acute systolic CHF (congestive heart failure) - Echo: EF 10-15%, severe MR/TR - CXR: mild pulmonary vascular congestion or edema - Cr up to 3.5, BUN 91 - BNP 9080 - Will continue to hold diuresis - Pt admits heavy ETOH consumption 6-12 beers daily for many years prior to one year ago. - Will initiate NS 75 mL/hr x 10 hours - Start dopamine gtt to help perfuse kidneys Cardiomyopathy - Echo: EF 10-15%, severe MR/ TR HTN (hypertension) - Continue Coreg 6.25 mg BID CAD (coronary artery disease) - Heart cath on 03/07/18 revealed coronaries with nonobstructive disease - Continue ASA, BB and statin - Continue Plavix d/t to stent in RLE CKD (chronic kidney disease) - BUN increased to 91/SCr 3.5 (base line 1.6) - Will continue to hold diuresis - Potassium 5.2 - Renal U/S indicated no hydronephrosis or renal mass Hyperlipidemia - Continue Statin Ppx: SQ Heparin PO Ranitidine 03/13/2018 NSTEMI (non-ST elevated myocardial infarction) - Troponin 1) 0.239, 2) 0.236, 3)0.320 4.)0.412 - Likely demand 2/2 respiratory failure/pulmonary edema VT/ SVT (supraventricular tachycardia) - Continue amiodarone 200 mg PO BID - EKG in am - Bi-V AICD in place - EKG: Sinus Tachycardia with LBBB, left axis deviation and supraventricular premature complexes - Monitor on tele Acute dyspnea - Presented from [facility] on 4l/NC - RCAT, continues to need bi-pap intermittently - CXR no pneumothorax. Mild pulmonary vascular congestion or edema. Acute systolic CHF (congestive heart failure) - Echo: EF 10-15%, severe MR/TR - CXR: mild pulmonary vascular congestion or edema - Cr 3.5 yesterday/3.1 today, BUN 91 yesterday/100 today - BNP 9080 - Will continue to hold diuresis - Pt admits heavy ETOH consumption 6-12 beers daily for many years prior to one year ago. - Will initiate NS 75 mL/hr x 10 hours - Will d/c dopamine gtt - Flores to monitor I&O - + FB today - Unable to start JAGDISH/ARB d/t hypotension/CKD Cardiomyopathy - Echo: EF 10-15%, severe MR/ TR - Continue medical therapy - Bi-V AICD in place HTN (hypertension) - Continue Coreg 6.25 mg BID CAD (coronary artery disease) - Heart cath on 03/07/18 revealed coronaries with nonobstructive disease - Continue ASA, BB and statin - Continue Plavix d/t to stent in RLE Acute Renal Failure - BUN 100, Cr 3.1 - Renal U/S indicated no hydronephrosis or renal mass CKD (chronic kidney disease) - Baseline Cr 1.6) - Will continue to hold diuresis - Potassium 4.2 - Mg 2.7 Hyperlipidemia - Continue Statin Ppx: SQ Heparin PO Ranitidine 03/14/18 Dyspnea: CXR: Resolved pulmonary edema. Stable right lower lobe airspace disease. CKD: BUN 118/SCr 3.8 today Transfer to CCU for Milrinone 0.375mcg/kg drip NS at 75mL X 1 liter 03/15/2018 [facility]: CXR: increased pulmonary edema. Cr and BUN decreased. Cont milrinone gtt 0.375. - lungs sounds clear and edema not bad in right leg. - s/p BiV/ICD - incision looks good. he is not pacing. A/CKD: recent Cr 3.8 -> 3.3 today and BUN up to 121 today. no diuretic. 03/16/2018 [facility]: CXR: increased pulmonary edema. Cr and BUN decreased. Cont milrinone gtt 0.375. - lungs sounds clear and edema not bad in right lower leg. - U/O ave 40-60 this morning. U/O 30 ml/hr this afternoon. - add dopamine 2 mcg/kg/min to increase perfusion to kidneys and improve U/ O. - s/p BiV/ICD - incision looks good. he is not paced - Coreg held the last 2 mornings due to low BP. A/CKD: recent Cr 3.8 -> 3.3 -> 2.8 today and BUN down to 115 today. no diuretic. NSTEMI T2 s/p HC: no significant CAD. Cont ASa and Plavix. Thrush: add Nystatin swish and swallow. 03/17/18 [facility]: CXR: Improved aeration with decreasing interstitial/opacities bilateral. Mild residual interstitial opacities overlying the lower lung zones. - Hold Coreg due to low B/P - BUN/ Cr 103/2.5 today, wean Milrinone over next 8 hours - Heparin 5000 units q8h SQ for DVT 03/18/18 [facility]: CXR: Impression: Slightly improved aeration of the right lung base. - Resume Coreg 3.125mg BID - BUN/ SCr 86/2.0, BNP 7390 - Okay to transfer to Surgical, needs room close to Nurses desk for close observation Hospital Course Summary Disclaimer: The visit summary below is not to be considered part of the above Progress Note. Hospital Course: Impression Leukocytosis Tachycardia Elevated LFTs Cardiomyopathy- with acute systolic failure Non-STEMI V. tach hyperlipidemia Hypertension Coronary artery disease Schizophrenia Depression History of CVA Plan Continued cardiology care as per Dr. Stahl, planning for pacemaker/ defibrillator placement later today. Patient doesn't meet nursing sepsis criteria. Given tachycardia, tachypnea and leukocytosis. All 3 of these may be multifactorial including severe cardiomyopathy and respiratory distress. Will obtain UA, Lactate and Blood cultures, Chest Xray to rule out infectious etiology Given respiratory distress will consult pulmonary, Dr Gibbs for evaluation and recommendations Monitor renal function- known CKD- Lead Relay Tester 2.2 (Baseline Lead Relay Tester 1.6) Continues on scheduled Bumex for diuresis- Monitor renal function Appreciate medical consultation. Will continue to follow patient. At time if discharge medical care is to return to PCP in Dr Hilda Self Case discussed with attending, Dr Serna <Jose C Stahl - Last Filed: 03/26/18 08:18> Exam Vital signs: Temperature 97.6 F 03/21/18 12:18 Pulse Rate 91 03/21/18 12:18 Respiratory Rate 18 03/21/18 12:18 Blood Pressure 134/72 03/21/18 12:18 Pulse Oximetry 94 03/21/18 12:18 Inpatient Medications: Discontinued Medications Generic Name Dose Route Start Last Admin Trade Name Freq PRN Reason Stop Dose Admin Acetaminophen 650 mg 03/06/18 18:27 Tylenol PO Q5H PRN Pain Acetaminophen 325 - 650 mg 03/07/18 14:20 03/21/18 00:26 Tylenol PO 650 mg Q5H PRN Administration Pain Hydrocodone Bitart/Acetaminophen 1 - 2 tab 03/07/18 14:20 03/21/18 11:54 [place] 5/325 PO 2 tab Q5H PRN Administration Pain Adenosine 6 mg 03/06/18 16:02 03/06/18 16:02 Adenocard IVP 03/06/18 16:03 6 mg O ONE Administration Adenosine 12 mg 03/06/18 16:06 03/06/18 16:06 Adenocard IVP 03/06/18 16:07 12 mg O ONE Administration Al Hydroxide/Mg Hydroxide 30 ml 03/07/18 14:20 Maalox Plus PO Q3H PRN Indigestion Albuterol Sulfate 2.5 mg 03/12/18 02:04 03/12/18 02:06 Proventil Neb (0.083%) AEROSOL 2.5 mg Q2HR PRN Administration Albuterol/Ipratropium 3 ml 03/10/18 11:00 03/21/18 10:36 Duoneb AEROSOL 3 ml RTQID WILLAM Administration Amiodarone HCl 200 mg 03/08/18 21:25 03/21/18 08:55 Pacerone PO 200 mg BID WILLAM Administration Amoxicillin/Clavulanate Potassium 875 mg 03/20/18 21:00 03/21/18 08:54 Augmentin 875/125 PO 875 mg Q12HR WILLAM Administration Apixaban 5 mg 03/20/18 21:00 03/21/18 08:55 Eliquis PO 5 mg BID WILLAM Administration Aspirin 81 mg 03/07/18 09:00 03/21/18 08:55 Ecotrin PO 81 mg DAILY WILLAM Administration Atorvastatin Calcium 20 mg 03/07/18 18:00 03/10/18 21:34 Lipitor PO Not Given 1800 WILLAM Atorvastatin Calcium 20 mg 03/08/18 21:00 03/15/18 20:02 Lipitor PO 20 mg HS WILLAM Administration Atropine Sulfate 0.5 mg 03/07/18 14:20 Atropine IVP Q5M PRN Bradycardia Bisacodyl 5 - 10 mg 03/07/18 14:20 03/15/18 19:08 Dulcolax PO 5 mg DAILY PRN Administration Constipation Bisacodyl 10 mg 03/07/18 14:20 Dulcolax RECTALLY DAILY PRN Constipation Budesonide/Formoterol Fumarate 2 puff 03/07/18 21:00 Symbicort Inhaler ORAL INH BID WILLAM Budesonide/Formoterol Fumarate 2 puff 03/07/18 12:39 03/21/18 09:44 Symbicort Inhaler ORAL INH 2 puff BID WILLAM Administration Bumetanide 1 mg 03/06/18 16:09 03/06/18 18:08 Bumex 1 Mg/4 Ml Inj. IVP 03/06/18 16:10 1 mg O ONE Administration Bumetanide 1 mg 03/06/18 16:10 03/06/18 18:09 Bumex 1 Mg/4 Ml Inj. IVP 03/06/18 16:11 1 mg O ONE Administration Bumetanide 1 mg 03/06/18 16:11 03/06/18 16:11 Bumex 1 Mg/4 Ml Inj. IVP 03/06/18 16:12 1 mg O ONE Administration Bumetanide 2 mg 03/07/18 21:00 03/10/18 21:33 Bumex 1 Mg/4 Ml Inj. IVP Not Given QID WILLAM Bumetanide 2 mg 03/08/18 15:00 03/09/18 04:06 Bumex 1 Mg/4 Ml Inj. IVP Not Given Q6HR WILLAM Bumetanide 1 mg 03/09/18 09:00 03/10/18 08:16 Bumex 1 Mg/4 Ml Inj. IVP 1 mg BID WILLAM Administration Bumetanide 1 mg 03/09/18 14:33 03/09/18 15:41 Bumex 1 Mg/4 Ml Inj. IVP 03/09/18 14:34 1 mg O ONE Administration Bumetanide 2 mg 03/10/18 16:07 03/10/18 20:15 Bumex 1 Mg Tab PO 2 mg [id number] WILLAM Administration Carvedilol 3.125 mg 03/07/18 10:53 03/10/18 07:52 Coreg PO 3.125 mg BIDWM WILLAM Administration Carvedilol 6.25 mg 03/10/18 16:37 03/13/18 09:29 Coreg PO 6.25 mg BIDWM WILLAM Administration Carvedilol 3.125 mg 03/14/18 09:00 03/17/18 08:28 Coreg PO 3.125 mg BIDWM WILLAM Administration Carvedilol 3.125 mg 03/18/18 08:17 03/19/18 09:10 Coreg PO 3.125 mg BIDWM WILLAM Administration Carvedilol 6.25 mg 03/19/18 17:30 03/20/18 08:49 Coreg PO 6.25 mg BIDWM WILLAM Administration Carvedilol 12.5 mg 03/20/18 17:30 03/21/18 09:00 Coreg PO 12.5 mg BIDWM WILLAM Administration Clopidogrel Bisulfate 75 mg 03/07/18 09:00 03/21/18 08:55 Plavix PO 75 mg DAILY WILLAM Administration Device 1 each 03/07/18 12:57 03/07/18 12:59 Optichamber 03/07/18 12:58 1 each O ONE Administration Docusate Sodium 100 mg 03/07/18 21:00 03/21/18 08:55 Colace PO 100 mg BID WILLAM Administration Docusate Sodium 100 mg 03/07/18 12:50 Colace PO BID PRN Furosemide 40 mg 03/16/18 18:23 03/16/18 18:25 Lasix 40 Mg/4 Ml IVP 03/16/18 18:24 40 mg O ONE Administration Furosemide 40 mg 03/16/18 19:04 03/16/18 19:05 Lasix 40 Mg/4 Ml IVP 03/16/18 19:05 40 mg O ONE Administration Heparin Sodium (Beef Lung) 6,000 unit 03/06/18 17:04 03/06/18 17:22 Heparin Bolus IVP 03/06/18 17:05 6,000 unit O ONE Administration Heparin Sodium (Beef Lung) 5,000 unit 03/06/18 22:04 03/06/18 22:10 Heparin Bolus IVP 03/06/18 22:05 5,000 unit O ONE Administration Heparin Sodium (Beef Lung) 2,000 unit 03/07/18 09:00 03/07/18 09:21 Heparin Bolus IVP 03/07/18 09:01 2,000 unit O ONE Administration Heparin Sodium (Porcine) 1 each 03/06/18 16:17 Pharmacy Consult - Heparin 03/06/18 16:18 ONE TIME ONE Heparin Sodium (Porcine) 5,000 units 03/09/18 09:00 03/09/18 21:31 Heparin Sq SQ 5,000 units Q12HR WILLAM Administration Heparin Sodium (Porcine) 5,000 units 03/11/18 09:00 03/14/18 09:26 Heparin Sq SQ 5,000 units Q12HR WILLAM Administration Heparin Sodium (Porcine) 5,000 units 03/17/18 17:00 03/20/18 08:50 Heparin Sq SQ 5,000 units Q8HR WILLAM Administration Bumetanide 25 mg/ IV Solution 100 mls @ 2 mls/hr 03/06/18 16:15 03/07/18 18: 19 IV Not Given Q24H WILLAM Heparin Sodium (Porcine) 20,000 unit in 500 mls @ 30 mls/hr 03/06/18 17:05 14:00 Heparin Drip IV Infused .[id number] WILLAM Titration Protocol 1,200 UNIT/HR Amiodarone HCl 900 mg/ Sodium 500 mls @ 16.66 mls/hr 03/07/18 00:31 03/08/18 12:41 Chloride IV Not Given .Q24H WILLAM 0.5 MG/MIN Amiodarone HCl 450 mg/ Sodium 250 mls @ 33.33 mls/hr 03/06/18 18:30 03/07/18 02:11 Chloride IV 03/07/18 00:30 Infused .[id number] WILLAM Infusion 1 MG/MIN Amiodarone HCl 150 mg/ Sodium 103 mls @ 618 mls/hr 03/06/18 18:20 03/06/18 19 :59 Chloride IV 03/06/18 18:29 Infused O ONE Infusion Heparin Sodium (Porcine) 20,000 unit in 500 mls @ 35 mls/hr 03/07/18 09:00 09:19 Heparin Drip IV Not Given .[id number] WILLAM Protocol 1,400 UNIT/HR Sodium Chloride 1,000 mls @ 50 mls/hr 03/07/18 14:30 03/08/18 06:17 Normal Saline IV 03/08/18 00:30 50 mls/hr .Q20H WILLAM Infusion Cefazolin Sodium 1 g/ Sodium 100 mls @ 200 mls/hr 03/11/18 01:00 03/11/18 09: 37 Chloride IV 03/11/18 09:29 Infused Q8HR WILLAM Infusion Dopamine HCl/Dextrose 400 mg in 250 mls @ 7.073 mls/hr 03/12/18 09:46 Dopamine Drip IV .Q24H PRN Protocol 2 MCG/KG/MIN Sodium Chloride 1,000 mls @ 75 mls/hr 03/12/18 10:00 03/13/18 00:44 Normal Saline IV 03/12/18 23:19 Infused .[id number] WILLAM Infusion Dopamine HCl/Dextrose 400 mg in 250 mls @ 7.073 mls/hr 03/12/18 11:15 16:06 Dopamine Drip IV Not Given .Q24H WILLAM Protocol 2 MCG/KG/MIN Vancomycin HCl 1,000 mg/ 250 mls @ 250 mls/hr 03/14/18 08:05 03/14/18 11:38 Sodium Chloride IV 03/14/18 08:06 Infused O ONE Infusion Piperacillin Sod/Tazobactam 100 mls @ 200 mls/hr 03/14/18 08:15 03/20/18 17: 57 Sod 2.25 gm/ Sodium Chloride IV Infused Q8H WILLAM Infusion Sodium Chloride 1,000 mls @ 125 mls/hr 03/14/18 08:15 03/14/18 18:24 Normal Saline IV 03/14/18 16:14 Infused .Q8H WILLAM Infusion Milrinone Lactate/Dextrose 20 mg in 100 mls @ 11.295 mls/hr 03/14/18 15:06 03:00 Milrinone Drip Premix IV Infused .[id number] WILLAM Infusion Protocol 0.375 MCG/KG/MIN Sodium Chloride 1,000 mls @ 75 mls/hr 03/14/18 15:06 03/14/18 15:40 Normal Saline IV 75 mls/hr .[id number] WILLAM Administration Dopamine HCl/Dextrose 400 mg in 250 mls @ 7.665 mls/hr 03/16/18 15:36 17:50 Dopamine Drip IV Infused .Q24H PRN Titration Protocol 2 MCG/KG/MIN Levothyroxine Sodium 250 mcg 03/08/18 06:30 03/16/18 06:14 Synthroid PO 250 mcg SUSA@0630 WILLAM Administration Levothyroxine Sodium 125 mcg 03/10/18 06:30 03/21/18 05:59 Synthroid PO 125 mcg MOTUWETHFR@0630 WILLAM Administration Lorazepam 0.5 - 1 mg 03/07/18 14:20 03/17/18 22:37 Ativan PO 0.5 mg Q4H PRN Administration Anxiety Lorazepam 0.5 - 1 mg 03/07/18 14:20 03/17/18 02:43 Ativan Inj IVP 0.5 mg Q4H PRN Administration Anxiety Losartan Potassium 25 mg 03/07/18 11:00 03/08/18 12:50 Cozaar PO 25 mg DAILY WILLAM Administration Magnesium Hydroxide 30 ml 03/07/18 12:50 Mom PO DAILY PRN Constipation Magnesium Hydroxide 30 ml 03/07/18 14:20 03/15/18 20:02 Mom PO 30 ml DAILY PRN Administration Constipation Methylprednisolone Sodium Succinate 125 mg 03/16/18 18:29 03/16/18 18:15 Solu-Medrol IVP 03/16/18 18:30 125 mg O ONE Administration Metoclopramide HCl 5 - 10 mg 03/07/18 14:20 03/13/18 01:47 Reglan IVP 10 mg Q6H PRN Administration Nausea &/or vomiting Minocycline HCl 100 mg 03/11/18 21:00 03/18/18 08:01 Minocin PO 03/18/18 20:59 100 mg BID WILLAM Administration Mirabegron 50 mg 03/07/18 09:00 03/08/18 08:38 Myrbetriq PO 50 mg DAILY WILLAM Administration Morphine Sulfate 2 - 4 mg 03/07/18 14:20 Morphine Sulfate Inj IVP 03/08/18 14:19 Q2H PRN Pain Morphine Sulfate 2 - 4 mg 03/07/18 14:20 Morphine Sulfate Inj IVP Q5M PRN Angina Neomycin/Polymyxin/Bacitracin 1 applic 03/21/18 10:53 03/21/18 11:03 Neosporin TP 03/21/18 10:54 1 applic O ONE Administration Nitroglycerin 0.4 mg 03/07/18 14:20 Nitrostat SL Q5M PRN Angina Nystatin 5 ml 03/16/18 17:00 03/21/18 09:56 Mycostatin PO 5 ml QID WILLAM Administration Nystatin 1 applic 03/19/18 16:59 Mycostatin TP BID PRN Ondansetron HCl 4 mg 03/06/18 18:28 Zofran IVP Q6H PRN Nausea &/or vomiting Ondansetron HCl 4 mg 03/07/18 14:20 03/21/18 05:59 Zofran IVP 4 mg Q6H PRN Administration Nausea &/or vomiting Pharmacy Consult 1 each 03/11/18 15:34 Pharmacy Consult - Fall Risk 03/11/18 15:35 ONE TIME ONE Polyethylene Glycol 17 gm 03/16/18 09:00 03/21/18 09:00 Miralax PO 17 gm DAILY WILLAM Administration Potassium Chloride 20 meq 03/08/18 21:23 03/08/18 22:08 K-Dur 20 Meq Tablet PO 03/08/18 21:24 20 meq O ONE Administration Potassium Chloride 20 meq 03/09/18 14:33 03/11/18 08:59 K-Dur 20 Meq Tablet PO 20 meq WB WILLAM Administration Potassium Chloride 40 meq 03/16/18 08:40 03/16/18 09:03 K-Dur 20 Meq Tablet PO 03/16/18 08:41 40 meq O ONE Administration Promethazine HCl 12.5 - 25 mg 03/07/18 14:20 Phenergan Inj IVP Q6HR PRN Nausea &/or vomiting Ranitidine HCl 150 mg 03/07/18 18:00 03/20/18 17:41 Zantac PO 150 mg 1800 WILLAM Administration Sodium Chloride 10 - 80 ml 03/09/18 14:34 03/20/18 16:59 Iv Flush IV 20 ml PRN PRN Administration Flushing Sodium Chloride 10 ml 03/10/18 20:02 Iv Flush IV PRN PRN Flushing Sodium Chloride 500 ml 03/20/18 08:43 03/20/18 08:49 Normal Saline IV 500 ml PRN PRN Administration Tamsulosin HCl 0.4 mg 03/07/18 18:00 03/08/18 19:04 Flomax PO 0.4 mg 1800 WILLAM Administration Tramadol HCl 50 mg 03/06/18 18:28 03/20/18 23:44 Ultram PO 50 mg Q6H PRN Administration Pain - Urinary Catheter Management Urethral Cath placed during this visit: no Results 03/21/18 04:45 03/21/18 04:45 Assessment and Plan - Assessment and Plan (1) Cardiomyopathy Status: Chronic (2) HTN (hypertension) Status: Chronic (3) CAD (coronary artery disease) Status: Chronic (4) CKD (chronic kidney disease) Status: Chronic (5) Hyperlipidemia Status: Chronic (6) Acute dyspnea Status: Acute (7) Acute systolic CHF (congestive heart failure) Status: Acute (8) SVT (supraventricular tachycardia) Status: Acute (9) NSTEMI (non-ST elevated myocardial infarction) Status: Acute (10) Acute renal failure superimposed on chronic kidney disease Status: Acute - Attestation Attestation Narrative: 03/26/18 08:18 Recommendation After examining the patient I agree with the above assessment. I am involved in the formulation of the patient's plan of care. Hospital Course Summary Disclaimer: The visit summary below is not to be considered part of the above Progress Note.
--- NOTE | 2018-03-18 10:50 | Progress Note ---
- Date 03/18/18 Subjective: F/U: Acute resp failure, pulm edema, pneumonia Awake in bed. More alert and interactive. Breathing feels better - able to maintain off BiPAP. Not feeling increased work of breathing or cough/ congestion. No pain with breathing. Appetite feels okay. No nausea or ab pain. Objective Vital signs: Temperature 97.6 F 03/18/18 04:00 Pulse Rate 87 03/18/18 08:00 Respiratory Rate 21 03/18/18 07:00 Blood Pressure 145/82 H 03/18/18 07:00 Pulse Oximetry 94 03/18/18 07:00 Height/Weight/BMI: Height 1.73 m Weight 101.3 kg Body Mass Index 35.0 - Constitutional Present: well nourished, well developed, obese - Routine HEENT Exam Head: Present: normocephalic, atraumatic Eye: Present: EOMI, PERRL ENT: Present: mucous membranes moist - Routine Respiratory Exam Present: decreased breath sounds. Absent: rales, rhonchi, crackles - Routine Cardiovascular Exam Present: RRR, no murmur - Routine Abdominal Exam Present: soft, non distended, non tender. Absent: normoactive bowel sounds ( decreased) - Routine Extremities Exam Present: edema (+1 to 2 upper/lower edema). Absent: cyanosis, clubbing - Routine Musculoskeletal Exam Musculoskeletal: Present: no clubbing or cyanosis - Routine Skin Exam Present: dry, warm - Routine Neurological Exam Present: alert, moving all extremities, vision grossly intact, hearing grossly intact. Absent: motor deficit - Routine Psychiatric Exam Present: normal affect, cooperative Results - Labs CBC & Chem 7: 03/18/18 04:14 03/18/18 04:14 Microbiology Results: Microbiology 03/16/18 17:44 Sputum, Expectorated Gram Stain - Final 03/16/18 17:44 Sputum, Expectorated Sputum Culture - Final Tawnya albicans Normal Respiratory Nuria 03/14/18 08:17 Peripheral/Iv Start Blood Culture - Preliminary No Growth After 4 Days 03/10/18 09:48 Peripheral/Iv Start Gram Stain - Final Not performed 03/10/18 09:48 Peripheral/Iv Start Blood Culture - Final No Growth After 5 Days 03/10/18 09:47 Peripheral/Iv Start Gram Stain - Final Not performed 03/10/18 09:47 Peripheral/Iv Start Blood Culture - Final No Growth After 5 Days Assessment and Plan (1) Leukocytosis Current visit: Yes Status: Acute Assessment and Plan: Assessment Suspect pneumonia - infiltrate on CXR decreasing Leukocytosis Pulmonary edema Acute Dyspnea/Hypoxic respiratory failure - tolerating BiPAP Mild acidosis with +AG - resolved. VT/SVT S/P cardioversion -Bi V ICD placed on 03/10/18 -On amiodarone 200mg BID, On Beta clarita with hold parameters for BP PAF - Self converted Elevated LFTs Severe, Dilated, Non ischemic Cardiomyopathy -EF 10% with severe MR -Pt admits heavy ETOH consumption 6-12 beers daily for many years prior to one year ago. -On Coreg with hold parameters for BP -Not on JAGDISH I or ARB due to low normal BP and acute on CKD -Bi V ICD placed Systolic Heart failure Hyperlipidemia -On a statin-hold for now due to elevated LFTs Hypertension NSTEMI - Likely Type 2 Mild thrombocytopenia (Not POA) PAD Acute Kidney injury - improving Stage III CKD Hyperkalemia (Not POA) Hypokalemia (Not POA) Thrush Abdominal distention - ileus vs constipation Schizophrenia Depression History of CVA Chronic pain Obesity Plan Continue with Zosyn for pulmonary coverage. WBC with increase this am, uncertain etiology. Renal status improving - creatinine decreased to 2.0. Breathing making gains - weaning off BiPAP. Cardiac care and medications as per cardiology. Encourage nursing to use bowel prn - no stool yesterday. Will recheck CBC in am to to resolving leukocytosis/pneumonia. Will recheck CMP in am due to JIMMIE and elevated LFTs. Case discussed with CCU nursing and Dr Gibbs. Time spent with patient care 25 minutes. DVT Prophylaxis: SCD's, SQ Heparin Resuscitation Status: Full Code - Time spent with patient Time with patient PN: 25 minutes - Physician Narrative Physician: Jj Serna MD Narrative: Date: 03/18/18 Time: 1047 Hospital Course Summary Disclaimer: The visit summary below is not to be considered part of the above Progress Note.
[2018-03-18] MEDS: POLYETHYL GLYCOL 3350 17gm PACKET PO SCH (11:18)
--- NOTE | 2018-03-18 12:48 | Pulmonology Progress Note ---
Subjective Principal diagnosis: SCHF, NSTEMI Interval history: alert and awake. off milrinone. eating, though quite weak. on nasal cannula Exam Vital signs: Temperature 97.8 F 03/18/18 08:00 Pulse Rate 77 03/18/18 11:45 Respiratory Rate 32 H 03/18/18 11:00 Blood Pressure 130/72 03/18/18 11:00 Pulse Oximetry 96 03/18/18 11:00 Inpatient Medications: Generic Name Dose Route Start Last Admin Trade Name Freq PRN Reason Stop Dose Admin Acetaminophen 325 - 650 mg 03/07/18 14:20 03/14/18 21:51 Tylenol PO 650 mg Q5H PRN Administration Pain Hydrocodone Bitart/Acetaminophen 1 - 2 tab 03/07/18 14:20 03/17/18 22:37 [place] 5/325 PO 1 tab Q5H PRN Administration Pain Al Hydroxide/Mg Hydroxide 30 ml 03/07/18 14:20 Maalox Plus PO Q3H PRN Indigestion Albuterol Sulfate 2.5 mg 03/12/18 02:04 03/12/18 02:06 Proventil Neb (0.083%) AEROSOL 2.5 mg Q2HR PRN Administration Albuterol/Ipratropium 3 ml 03/10/18 11:00 03/18/18 10:45 Duoneb AEROSOL 2 ml RTQID WILLAM Administration Amiodarone HCl 200 mg 03/08/18 21:25 03/18/18 08:00 Pacerone PO 200 mg BID WILLAM Administration Aspirin 81 mg 03/07/18 09:00 03/18/18 08:00 Ecotrin PO 81 mg DAILY WILLAM Administration Atropine Sulfate 0.5 mg 03/07/18 14:20 Atropine IVP Q5M PRN Bradycardia Bisacodyl 5 - 10 mg 03/07/18 14:20 03/15/18 19:08 Dulcolax PO 5 mg DAILY PRN Administration Constipation Bisacodyl 10 mg 03/07/18 14:20 Dulcolax RECTALLY DAILY PRN Constipation Budesonide/Formoterol Fumarate 2 puff 03/07/18 12:39 03/18/18 10:59 Symbicort Inhaler ORAL INH 2 puff BID WILLAM Administration Carvedilol 3.125 mg 03/18/18 08:17 03/18/18 09:44 Coreg PO 3.125 mg BIDWM WILLAM Administration Clopidogrel Bisulfate 75 mg 03/07/18 09:00 03/18/18 08:00 Plavix PO 75 mg DAILY WILLAM Administration Docusate Sodium 100 mg 03/07/18 21:00 03/18/18 08:01 Colace PO 100 mg BID WILLAM Administration Docusate Sodium 100 mg 03/07/18 12:50 Colace PO BID PRN Heparin Sodium (Porcine) 5,000 units 03/17/18 17:00 03/18/18 08:01 Heparin Sq SQ 5,000 units Q8HR WILLAM Administration Piperacillin Sod/Tazobactam 100 mls @ 200 mls/hr 03/14/18 08:15 03/18/18 08: 31 Sod 2.25 gm/ Sodium Chloride IV Infused Q8H WILLAM Infusion Sodium Chloride 1,000 mls @ 75 mls/hr 03/14/18 15:06 03/14/18 15:40 Normal Saline IV 75 mls/hr .[id number] WILLAM Administration Levothyroxine Sodium 250 mcg 03/08/18 06:30 03/16/18 06:14 Synthroid PO 250 mcg SUSA@0630 [facility] Administration Levothyroxine Sodium 125 mcg 03/10/18 06:30 03/18/18 09:44 Synthroid PO 125 mcg MOTUWETHFR@0630 [facility] Administration Lorazepam 0.5 - 1 mg 03/07/18 14:20 03/17/18 22:37 Ativan PO 0.5 mg Q4H PRN Administration Anxiety Lorazepam 0.5 - 1 mg 03/07/18 14:20 03/17/18 02:43 Ativan Inj IVP 0.5 mg Q4H PRN Administration Anxiety Magnesium Hydroxide 30 ml 03/07/18 14:20 03/15/18 20:02 Mom PO 30 ml DAILY PRN Administration Constipation Metoclopramide HCl 5 - 10 mg 03/07/18 14:20 03/13/18 01:47 Reglan IVP 10 mg Q6H PRN Administration Nausea &/or vomiting Minocycline HCl 100 mg 03/11/18 21:00 03/18/18 08:01 Minocin PO 03/18/18 20:59 100 mg BID WILLAM Administration Morphine Sulfate 2 - 4 mg 03/07/18 14:20 Morphine Sulfate Inj IVP Q5M PRN Angina Nitroglycerin 0.4 mg 03/07/18 14:20 Nitrostat SL Q5M PRN Angina Nystatin 5 ml 03/16/18 17:00 03/18/18 08:01 Mycostatin PO 5 ml QID WILLAM Administration Ondansetron HCl 4 mg 03/07/18 14:20 03/17/18 23:37 Zofran IVP 4 mg Q6H PRN Administration Nausea &/or vomiting Polyethylene Glycol 17 gm 03/16/18 09:00 03/18/18 11:18 Miralax PO 17 gm DAILY WILLAM Administration Promethazine HCl 12.5 - 25 mg 03/07/18 14:20 Phenergan Inj IVP Q6HR PRN Nausea &/or vomiting Ranitidine HCl 150 mg 03/07/18 18:00 03/17/18 17:11 Zantac PO 150 mg 1800 WILLAM Administration Sodium Chloride 10 - 80 ml 03/09/18 14:34 03/17/18 02:43 Iv Flush IV 20 ml PRN PRN Administration Flushing Sodium Chloride 10 ml 03/10/18 20:02 Iv Flush IV PRN PRN Flushing Tramadol HCl 50 mg 03/06/18 18:28 03/18/18 01:13 Ultram PO 50 mg Q6H PRN Administration Pain Discontinued Medications Generic Name Dose Route Start Last Admin Trade Name Freq PRN Reason Stop Dose Admin Acetaminophen 650 mg 03/06/18 18:27 Tylenol PO Q5H PRN Pain Adenosine 6 mg 03/06/18 16:02 03/06/18 16:02 Adenocard IVP 03/06/18 16:03 6 mg O ONE Administration Adenosine 12 mg 03/06/18 16:06 03/06/18 16:06 Adenocard IVP 03/06/18 16:07 12 mg O ONE Administration Atorvastatin Calcium 20 mg 03/07/18 18:00 03/10/18 21:34 Lipitor PO Not Given 1800 [facility] Atorvastatin Calcium 20 mg 03/08/18 21:00 03/15/18 20:02 Lipitor PO 20 mg HS WILLAM Administration Budesonide/Formoterol Fumarate 2 puff 03/07/18 21:00 Symbicort Inhaler ORAL INH BID WILLAM Bumetanide 1 mg 03/06/18 16:09 03/06/18 18:08 Bumex 1 Mg/4 Ml Inj. IVP 03/06/18 16:10 1 mg O ONE Administration Bumetanide 1 mg 03/06/18 16:10 03/06/18 18:09 Bumex 1 Mg/4 Ml Inj. IVP 03/06/18 16:11 1 mg O ONE Administration Bumetanide 1 mg 03/06/18 16:11 03/06/18 16:11 Bumex 1 Mg/4 Ml Inj. IVP 03/06/18 16:12 1 mg O ONE Administration Bumetanide 2 mg 03/07/18 21:00 03/10/18 21:33 Bumex 1 Mg/4 Ml Inj. IVP Not Given QID WILLAM Bumetanide 2 mg 03/08/18 15:00 03/09/18 04:06 Bumex 1 Mg/4 Ml Inj. IVP Not Given Q6HR WILLAM Bumetanide 1 mg 03/09/18 09:00 03/10/18 08:16 Bumex 1 Mg/4 Ml Inj. IVP 1 mg BID WILLAM Administration Bumetanide 1 mg 03/09/18 14:33 03/09/18 15:41 Bumex 1 Mg/4 Ml Inj. IVP 03/09/18 14:34 1 mg O ONE Administration Bumetanide 2 mg 03/10/18 16:07 03/10/18 20:15 Bumex 1 Mg Tab PO 2 mg [id number] WILLAM Administration Carvedilol 3.125 mg 03/07/18 10:53 03/10/18 07:52 Coreg PO 3.125 mg BIDWM WILLAM Administration Carvedilol 6.25 mg 03/10/18 16:37 03/13/18 09:29 Coreg PO 6.25 mg BIDWM WILLAM Administration Carvedilol 3.125 mg 03/14/18 09:00 03/17/18 08:28 Coreg PO 3.125 mg BIDWM WILLAM Administration Device 1 each 03/07/18 12:57 03/07/18 12:59 Optichamber 03/07/18 12:58 1 each O ONE Administration Furosemide 40 mg 03/16/18 18:23 03/16/18 18:25 Lasix 40 Mg/4 Ml IVP 03/16/18 18:24 40 mg O ONE Administration Furosemide 40 mg 03/16/18 19:04 03/16/18 19:05 Lasix 40 Mg/4 Ml IVP 03/16/18 19:05 40 mg O ONE Administration Heparin Sodium (Beef Lung) 6,000 unit 03/06/18 17:04 03/06/18 17:22 Heparin Bolus IVP 03/06/18 17:05 6,000 unit O ONE Administration Heparin Sodium (Beef Lung) 5,000 unit 03/06/18 22:04 03/06/18 22:10 Heparin Bolus IVP 03/06/18 22:05 5,000 unit O ONE Administration Heparin Sodium (Beef Lung) 2,000 unit 03/07/18 09:00 03/07/18 09:21 Heparin Bolus IVP 03/07/18 09:01 2,000 unit O ONE Administration Heparin Sodium (Porcine) 1 each 03/06/18 16:17 Pharmacy Consult - Heparin 03/06/18 16:18 ONE TIME ONE Heparin Sodium (Porcine) 5,000 units 03/09/18 09:00 03/09/18 21:31 Heparin Sq SQ 5,000 units Q12HR WILLAM Administration Heparin Sodium (Porcine) 5,000 units 03/11/18 09:00 03/14/18 09:26 Heparin Sq SQ 5,000 units Q12HR WILLAM Administration Bumetanide 25 mg/ IV Solution 100 mls @ 2 mls/hr 03/06/18 16:15 03/07/18 18: 19 IV Not Given Q24H WILLAM Heparin Sodium (Porcine) 20,000 unit in 500 mls @ 30 mls/hr 03/06/18 17:05 14:00 Heparin Drip IV Infused .[id number] WILLAM Titration Protocol 1,200 UNIT/HR Amiodarone HCl 900 mg/ Sodium 500 mls @ 16.66 mls/hr 03/07/18 00:31 03/08/18 12:41 Chloride IV Not Given .Q24H WILLAM 0.5 MG/MIN Amiodarone HCl 450 mg/ Sodium 250 mls @ 33.33 mls/hr 03/06/18 18:30 03/07/18 02:11 Chloride IV 03/07/18 00:30 Infused .[id number] WILLAM Infusion 1 MG/MIN Amiodarone HCl 150 mg/ Sodium 103 mls @ 618 mls/hr 03/06/18 18:20 03/06/18 19 :59 Chloride IV 03/06/18 18:29 Infused O ONE Infusion Heparin Sodium (Porcine) 20,000 unit in 500 mls @ 35 mls/hr 03/07/18 09:00 09:19 Heparin Drip IV Not Given .[id number] WILLAM Protocol 1,400 UNIT/HR Sodium Chloride 1,000 mls @ 50 mls/hr 03/07/18 14:30 03/08/18 06:17 Normal Saline IV 03/08/18 00:30 50 mls/hr .Q20H WILLAM Infusion Cefazolin Sodium 1 g/ Sodium 100 mls @ 200 mls/hr 03/11/18 01:00 03/11/18 09: 37 Chloride IV 03/11/18 09:29 Infused Q8HR WILLAM Infusion Dopamine HCl/Dextrose 400 mg in 250 mls @ 7.073 mls/hr 03/12/18 09:46 Dopamine Drip IV .Q24H PRN Protocol 2 MCG/KG/MIN Sodium Chloride 1,000 mls @ 75 mls/hr 03/12/18 10:00 03/13/18 00:44 Normal Saline IV 03/12/18 23:19 Infused .[id number] WILLAM Infusion Dopamine HCl/Dextrose 400 mg in 250 mls @ 7.073 mls/hr 03/12/18 11:15 16:06 Dopamine Drip IV Not Given .Q24H WILLAM Protocol 2 MCG/KG/MIN Vancomycin HCl 1,000 mg/ 250 mls @ 250 mls/hr 03/14/18 08:05 03/14/18 11:38 Sodium Chloride IV 03/14/18 08:06 Infused O ONE Infusion Sodium Chloride 1,000 mls @ 125 mls/hr 03/14/18 08:15 03/14/18 18:24 Normal Saline IV 03/14/18 16:14 Infused .Q8H WILLAM Infusion Milrinone Lactate/Dextrose 20 mg in 100 mls @ 11.295 mls/hr 03/14/18 15:06 03:00 Milrinone Drip Premix IV Infused .[id number] WILLAM Infusion Protocol 0.375 MCG/KG/MIN Dopamine HCl/Dextrose 400 mg in 250 mls @ 7.665 mls/hr 03/16/18 15:36 17:50 Dopamine Drip IV Infused .Q24H PRN Titration Protocol 2 MCG/KG/MIN Losartan Potassium 25 mg 03/07/18 11:00 03/08/18 12:50 Cozaar PO 25 mg DAILY WILLAM Administration Magnesium Hydroxide 30 ml 03/07/18 12:50 Mom PO DAILY PRN Constipation Methylprednisolone Sodium Succinate 125 mg 03/16/18 18:29 03/16/18 18:15 Solu-Medrol IVP 03/16/18 18:30 125 mg O ONE Administration Mirabegron 50 mg 03/07/18 09:00 03/08/18 08:38 Myrbetriq PO 50 mg DAILY WILLAM Administration Morphine Sulfate 2 - 4 mg 03/07/18 14:20 Morphine Sulfate Inj IVP 03/08/18 14:19 Q2H PRN Pain Ondansetron HCl 4 mg 03/06/18 18:28 Zofran IVP Q6H PRN Nausea &/or vomiting Pharmacy Consult 1 each 03/11/18 15:34 Pharmacy Consult - Fall Risk [facility] 03/11/18 15:35 ONE TIME ONE Potassium Chloride 20 meq 03/08/18 21:23 03/08/18 22:08 K-Dur 20 Meq Tablet PO 03/08/18 21:24 20 meq O ONE Administration Potassium Chloride 20 meq 03/09/18 14:33 03/11/18 08:59 K-Dur 20 Meq Tablet PO 20 meq WB WILLAM Administration Potassium Chloride 40 meq 03/16/18 08:40 03/16/18 09:03 K-Dur 20 Meq Tablet PO 03/16/18 08:41 40 meq O ONE Administration Tamsulosin HCl 0.4 mg 03/07/18 18:00 03/08/18 19:04 Flomax PO 0.4 mg 1800 WILLAM Administration - Constitutional no acute distress - Routine HEENT Exam Eye: Present: EOMI, PERRL. Absent: conjunctival icterus ENT: Present: mucous membranes moist - Routine Neck Exam Present: supple - Routine Respiratory Exam Present: decreased breath sounds, prolonged expiratory phase - Routine Cardiovascular Exam Present: RRR - Routine Abdominal Exam Present: soft. Absent: guarding - Routine Extremities Exam Absent: cyanosis - Urinary Catheter Management Urethral Cath placed during this visit: yes Urethral indwelling: Yes Insertion date: 03/06/18 Insertion time: 16:15 Results - Laboratory Findings Laboratory: Laboratory Results - last 48 hr 03/17/18 03/17/18 03/17/18 04:00 04:00 04:00 WBC 11.5 H RBC 3.73 L Hgb 12.2 L Hct 36.3 L MCV 97.3 MCH 32.7 MCHC 33.6 RDW Std Deviation 53.7 H Plt Count 92 L MPV 12.0 Immature Gran % (Auto) Not performed Neut % (Auto) Not performed Lymph % (Auto) Not performed [place] % (Auto) Not performed Eos % (Auto) Not performed Baso % (Auto) Not performed Neut # (Auto) Not performed Lymph # (Auto) Not performed [place] # (Auto) Not performed Eos # (Auto) Not performed Baso # (Auto) Not performed Abs Immat Gran (auto) Not performed Neutrophils % (Manual) 95.0 H Band Neutrophils % 2.0 Lymphocytes % (Manual) 2.0 L Monocytes % (Manual) 1.0 Neutrophils # (Manual) 10.9 H Band Neutrophils # 0.2 Lymphocytes # (Manual) 0.2 L Monocytes # (Manual) 0.1 Poikilocytosis 1+ Anisocytosis 1+ Tear Drop Cells 1+ Ovalocytes 1+ RBC Morph Comment Abnormal Turbidity < 20 Sodium 136 Potassium 3.7 Chloride 96 L Carbon Dioxide 28 Anion Gap 12 BUN 103.0 H* Creatinine 2.5 H D GFR Calculation 27 BUN/Creatinine Ratio 41 H Glucose 240 H Calculated Osmolality 302 H Calcium 8.1 L Phosphorus Magnesium Total Bilirubin 1.20 Conjugated Bilirubin 0.00 Unconjugated Bilirubin 0.50 Icterus Index < 2 AST 192 H ALT 346 H Alkaline Phosphatase 110 NT-Pro-B Natriuret Pep Total Protein 6.3 Albumin 3.4 L Globulin 2.9 Albumin/Globulin Ratio 1.2 Procalcitonin 2.62 H* Specimen Hemolysis < 15 03/18/18 03/18/18 03/18/18 04:14 04:14 04:14 WBC 19.2 H D RBC 3.64 L Hgb 11.9 L Hct 35.7 L MCV 98.1 MCH 32.7 MCHC 33.3 RDW Std Deviation 54.5 H Plt Count 105 L MPV 11.6 Immature Gran % (Auto) Not performed Neut % (Auto) Not performed Lymph % (Auto) Not performed [place] % (Auto) Not performed Eos % (Auto) Not performed Baso % (Auto) Not performed Neut # (Auto) Not performed Lymph # (Auto) Not performed [place] # (Auto) Not performed Eos # (Auto) Not performed Baso # (Auto) Not performed Abs Immat Gran (auto) Not performed Neutrophils % (Manual) 88.0 H Band Neutrophils % Lymphocytes % (Manual) 2.0 L Monocytes % (Manual) 10.0 H Neutrophils # (Manual) 16.9 H Band Neutrophils # Lymphocytes # (Manual) 0.4 L Monocytes # (Manual) 1.9 H Poikilocytosis 1+ Anisocytosis 1+ Tear Drop Cells 1+ Ovalocytes RBC Morph Comment Abnormal Turbidity < 20 Sodium 138 Potassium 4.0 Chloride 96 L Carbon Dioxide 30 Anion Gap 12 BUN 86.0 H* Creatinine 2.0 H D GFR Calculation 35 BUN/Creatinine Ratio 43 H Glucose 297 H Calculated Osmolality 303 H Calcium 8.5 Phosphorus 3.3 Magnesium 2.8 H Total Bilirubin 1.20 Conjugated Bilirubin Unconjugated Bilirubin Icterus Index < 2 AST 103 H D ALT 270 H Alkaline Phosphatase 97 NT-Pro-B Natriuret Pep 7390 H Total Protein 6.3 Albumin 3.4 L Globulin 2.9 Albumin/Globulin Ratio 1.2 Procalcitonin Specimen Hemolysis < 15 - Diagnostic Findings Chest x-ray: report reviewed, image reviewed Assessment and Plan (1) Acute respiratory failure with hypoxemia Status: Acute Assessment and plan: Still requiring bipap 14/5, rate 12, though does seem to be improved today with improving infiltrates on CXR using BIPAP prn for pulmonary edema, decompensated CHF, renal failure due to cardiorenal syndrome Once improved and on the floor we can resume CPAP (2) COPD (chronic obstructive pulmonary disease) Status: Acute Assessment and plan: Budesonide/formoterol BID (Symbicort), neb albuterol/iprat as needed O2 to keep sat > 90% - Assessment and Plan Acute Hypoxic respiratory Failure COPD Pulmonary edema Nonischemic Cardiomyopathy/systolic HF EF 10-15% VHD svere MR/TR Vtach NSTEM JIMMIE on CKD (Baseline Group Director 1.6) Plan: Pt currently on O2 at 5L per [place] for breakfast, using bipap f16, 16/6, 35% otherwise. CXR with improving basilar infiltrates but still with congestion noted. WBC improving, afebrile and procal improving 4.15>2.62, on Zosyn. Cont on BT's with A/A QID and symbicort BID no wheezing noted. On milrinone 0.37mncg/ kg, Cr improving with good UOP noted. Continue to follow closely. - Time Spent With Patient Total time spent is greater than 50% in coordination of care (as documented) at patient's floor/unit and/or counseling patient: less than 15 minutes
[2018-03-18] MEDS: HYDROCODONE/APAP 5mg/325mg TABLET PO PRN ×2 (16:26→20:41)
[2018-03-18] MEDS: SALINE FLUSH 10ml SYRINGE IV PRN (20:43)
[2018-03-19] MEDS: HEPARIN SUB-Q 5,000units/0.5ml INJECTION SQ SCH ×3 (00:56→17:51)
[2018-03-19] MEDS: PIPERACILLIN/TAZOBACTAM 2.25 GM in NS 100 ML IV SCH ×3 (00:56→17:32)
[2018-03-19] MEDS: HYDROCODONE/APAP 5mg/325mg TABLET PO PRN ×4 (01:51→21:22)
[2018-03-19] MEDS: ACETAMINOPHEN 325 MG TABLET PO PRN (04:55)
[2018-03-19] MEDS: LEVOTHYROXINE 125 MCG TABLET PO SCH (05:57)
[2018-03-19] MEDS: ALBUTEROL/IPRATROPIUM 2.5mg-0.5mg/3ml NEB AEROSOL SCH ×4 (07:10→19:50)
--- NOTE | 2018-03-19 08:25 | XRay Report ---
Indication: F/U pulmonary edema PROCEDURE: XR chest 1V: Encounter: Initial Comparison: March 18, 2018 Findings: Aeration of the right lower lobe continues to slowly improve. Right PICC line remains in place. No new or worsening airspace disease. No pneumothorax. Cardiac silhouette remains enlarged but unchanged. Mediastinal contours are stable. Pulmonary vascularity appears normal. Impression: Slowly improving appearance of the chest. .
[2018-03-19] MEDS: CARVEDILOL 3.125 MG TABLET PO SCH ×2 (08:57→09:10)
[2018-03-19] MEDS: RANITIDINE 150 MG TABLET PO SCH ×2 (08:57→17:51)
[2018-03-19] MEDS: NYSTATIN 500,000 units/5 ml ORAL LIQUID PO SCH ×5 (08:57→20:16)
[2018-03-19] MEDS: ASPIRIN *EC* 81 MG TABLET PO SCH (09:10)
[2018-03-19] MEDS: AMIODARONE 200 MG TABLET PO SCH ×2 (09:10→20:16)
[2018-03-19] MEDS: CLOPIDOGREL 75 MG TABLET PO SCH (09:10)
[2018-03-19] MEDS: DOCUSATE SODIUM 100 MG CAPSULE PO SCH ×2 (09:11→20:15)
[2018-03-19] MEDS: POLYETHYL GLYCOL 3350 17gm PACKET PO SCH (09:11)
--- NOTE | 2018-03-19 12:17 | Cardiology Progress Note ---
<Kylee Richards M - Last Filed: 03/20/18 14:50> Subjective Principal diagnosis: SCHF, NSTEMI Interval history: Mirza is seen in follow up for NSTEMI, SVT, and sustained VT that required cardioversion at bedside. He states he hurts all over. When asked specifically about chest pain, he denies it however his pacemaker implant site is tender to palpation. He denies chest pain or pressure, SOA, dizziness or nausea. Exam Vital signs: Temperature 96.8 F 03/19/18 07:43 Pulse Rate 85 03/19/18 08:00 Respiratory Rate 18 03/19/18 11:00 Blood Pressure 135/80 03/19/18 07:43 Pulse Oximetry 100 03/19/18 11:00 Inpatient Medications: Generic Name Dose Route Start Last Admin Trade Name Freq PRN Reason Stop Dose Admin Acetaminophen 325 - 650 mg 03/07/18 14:20 03/19/18 04:55 Tylenol PO 650 mg Q5H PRN Administration Pain Hydrocodone Bitart/Acetaminophen 1 - 2 tab 03/07/18 14:20 03/19/18 06:00 [place] 5/325 PO 1 tab Q5H PRN Administration Pain Al Hydroxide/Mg Hydroxide 30 ml 03/07/18 14:20 Maalox Plus PO Q3H PRN Indigestion Albuterol Sulfate 2.5 mg 03/12/18 02:04 03/12/18 02:06 Proventil Neb (0.083%) AEROSOL 2.5 mg Q2HR PRN Administration Albuterol/Ipratropium 3 ml 03/10/18 11:00 03/19/18 11:00 Duoneb AEROSOL 3 ml RTQID WILLAM Administration Amiodarone HCl 200 mg 03/08/18 21:25 03/19/18 09:10 Pacerone PO 200 mg BID WILLAM Administration Aspirin 81 mg 03/07/18 09:00 03/19/18 09:10 Ecotrin PO 81 mg DAILY WILLAM Administration Atropine Sulfate 0.5 mg 03/07/18 14:20 Atropine IVP Q5M PRN Bradycardia Bisacodyl 5 - 10 mg 03/07/18 14:20 03/15/18 19:08 Dulcolax PO 5 mg DAILY PRN Administration Constipation Bisacodyl 10 mg 03/07/18 14:20 Dulcolax RECTALLY DAILY PRN Constipation Budesonide/Formoterol Fumarate 2 puff 03/07/18 12:39 03/19/18 09:19 Symbicort Inhaler ORAL INH 2 puff BID [facility] Administration Carvedilol 3.125 mg 03/18/18 08:17 03/19/18 09:10 Coreg PO 3.125 mg BIDWM [facility] Administration Clopidogrel Bisulfate 75 mg 03/07/18 09:00 03/19/18 09:10 Plavix PO 75 mg DAILY [facility] Administration Docusate Sodium 100 mg 03/07/18 21:00 03/19/18 09:11 Colace PO Not Given BID [facility] Docusate Sodium 100 mg 03/07/18 12:50 Colace PO BID PRN Heparin Sodium (Porcine) 5,000 units 03/17/18 17:00 03/19/18 09:11 Heparin Sq SQ 5,000 units Q8HR [facility] Administration Piperacillin Sod/Tazobactam 100 mls @ 200 mls/hr 03/14/18 08:15 03/19/18 09: 40 Sod 2.25 gm/ Sodium Chloride IV Infused Q8H [facility] Infusion Levothyroxine Sodium 250 mcg 03/08/18 06:30 03/16/18 06:14 Synthroid PO 250 mcg SUSA@0630 [facility] Administration Levothyroxine Sodium 125 mcg 03/10/18 06:30 03/19/18 05:57 Synthroid PO 125 mcg MOTUWETHFR@0630 [facility] Administration Lorazepam 0.5 - 1 mg 03/07/18 14:20 03/17/18 22:37 Ativan PO 0.5 mg Q4H PRN Administration Anxiety Lorazepam 0.5 - 1 mg 03/07/18 14:20 03/17/18 02:43 Ativan Inj IVP 0.5 mg Q4H PRN Administration Anxiety Magnesium Hydroxide 30 ml 03/07/18 14:20 03/15/18 20:02 Mom PO 30 ml DAILY PRN Administration Constipation Metoclopramide HCl 5 - 10 mg 03/07/18 14:20 03/13/18 01:47 Reglan IVP 10 mg Q6H PRN Administration Nausea &/or vomiting Morphine Sulfate 2 - 4 mg 03/07/18 14:20 Morphine Sulfate Inj IVP Q5M PRN Angina Nitroglycerin 0.4 mg 03/07/18 14:20 Nitrostat SL Q5M PRN Angina Nystatin 5 ml 03/16/18 17:00 03/19/18 09:11 Mycostatin PO 5 ml QID WILLAM Administration Ondansetron HCl 4 mg 03/07/18 14:20 03/17/18 23:37 Zofran IVP 4 mg Q6H PRN Administration Nausea &/or vomiting Polyethylene Glycol 17 gm 03/16/18 09:00 03/19/18 09:11 Miralax PO Not Given DAILY WILLAM Promethazine HCl 12.5 - 25 mg 03/07/18 14:20 Phenergan Inj IVP Q6HR PRN Nausea &/or vomiting Ranitidine HCl 150 mg 03/07/18 18:00 03/19/18 08:57 Zantac PO Not Given 1800 WILLAM Sodium Chloride 10 - 80 ml 03/09/18 14:34 03/18/18 20:43 Iv Flush IV 20 ml PRN PRN Administration Flushing Sodium Chloride 10 ml 03/10/18 20:02 Iv Flush IV PRN PRN Flushing Tramadol HCl 50 mg 03/06/18 18:28 03/18/18 01:13 Ultram PO 50 mg Q6H PRN Administration Pain Discontinued Medications Generic Name Dose Route Start Last Admin Trade Name Freq PRN Reason Stop Dose Admin Acetaminophen 650 mg 03/06/18 18:27 Tylenol PO Q5H PRN Pain Adenosine 6 mg 03/06/18 16:02 03/06/18 16:02 Adenocard IVP 03/06/18 16:03 6 mg O ONE Administration Adenosine 12 mg 03/06/18 16:06 03/06/18 16:06 Adenocard IVP 03/06/18 16:07 12 mg O ONE Administration Atorvastatin Calcium 20 mg 03/07/18 18:00 03/10/18 21:34 Lipitor PO Not Given 1800 WILLAM Atorvastatin Calcium 20 mg 03/08/18 21:00 03/15/18 20:02 Lipitor PO 20 mg HS WILLAM Administration Budesonide/Formoterol Fumarate 2 puff 03/07/18 21:00 Symbicort Inhaler ORAL INH BID WILLAM Bumetanide 1 mg 03/06/18 16:09 03/06/18 18:08 Bumex 1 Mg/4 Ml Inj. IVP 03/06/18 16:10 1 mg O ONE Administration Bumetanide 1 mg 03/06/18 16:10 03/06/18 18:09 Bumex 1 Mg/4 Ml Inj. IVP 03/06/18 16:11 1 mg O ONE Administration Bumetanide 1 mg 03/06/18 16:11 03/06/18 16:11 Bumex 1 Mg/4 Ml Inj. IVP 03/06/18 16:12 1 mg O ONE Administration Bumetanide 2 mg 03/07/18 21:00 03/10/18 21:33 Bumex 1 Mg/4 Ml Inj. IVP Not Given QID WILLAM Bumetanide 2 mg 03/08/18 15:00 03/09/18 04:06 Bumex 1 Mg/4 Ml Inj. IVP Not Given Q6HR WILLAM Bumetanide 1 mg 03/09/18 09:00 03/10/18 08:16 Bumex 1 Mg/4 Ml Inj. IVP 1 mg BID WILLAM Administration Bumetanide 1 mg 03/09/18 14:33 03/09/18 15:41 Bumex 1 Mg/4 Ml Inj. IVP 03/09/18 14:34 1 mg O ONE Administration Bumetanide 2 mg 03/10/18 16:07 03/10/18 20:15 Bumex 1 Mg Tab PO 2 mg [id number] WILLAM Administration Carvedilol 3.125 mg 03/07/18 10:53 03/10/18 07:52 Coreg PO 3.125 mg BIDWM WILLAM Administration Carvedilol 6.25 mg 03/10/18 16:37 03/13/18 09:29 Coreg PO 6.25 mg BIDWM WILLAM Administration Carvedilol 3.125 mg 03/14/18 09:00 03/17/18 08:28 Coreg PO 3.125 mg BIDWM WILLAM Administration Device 1 each 03/07/18 12:57 03/07/18 12:59 Optichamber MC 03/07/18 12:58 1 each O ONE Administration Furosemide 40 mg 03/16/18 18:23 03/16/18 18:25 Lasix 40 Mg/4 Ml IVP 03/16/18 18:24 40 mg O ONE Administration Furosemide 40 mg 03/16/18 19:04 03/16/18 19:05 Lasix 40 Mg/4 Ml IVP 03/16/18 19:05 40 mg O ONE Administration Heparin Sodium (Beef Lung) 6,000 unit 03/06/18 17:04 03/06/18 17:22 Heparin Bolus IVP 03/06/18 17:05 6,000 unit O ONE Administration Heparin Sodium (Beef Lung) 5,000 unit 03/06/18 22:04 03/06/18 22:10 Heparin Bolus IVP 03/06/18 22:05 5,000 unit O ONE Administration Heparin Sodium (Beef Lung) 2,000 unit 03/07/18 09:00 03/07/18 09:21 Heparin Bolus IVP 03/07/18 09:01 2,000 unit O ONE Administration Heparin Sodium (Porcine) 1 each 03/06/18 16:17 Pharmacy Consult - Heparin 03/06/18 16:18 ONE TIME ONE Heparin Sodium (Porcine) 5,000 units 03/09/18 09:00 03/09/18 21:31 Heparin Sq SQ 5,000 units Q12HR WILLAM Administration Heparin Sodium (Porcine) 5,000 units 03/11/18 09:00 03/14/18 09:26 Heparin Sq SQ 5,000 units Q12HR WILLAM Administration Bumetanide 25 mg/ IV Solution 100 mls @ 2 mls/hr 03/06/18 16:15 03/07/18 18: 19 IV Not Given Q24H WILLAM Heparin Sodium (Porcine) 20,000 unit in 500 mls @ 30 mls/hr 03/06/18 17:05 14:00 Heparin Drip IV Infused .[id number] WILLAM Titration Protocol 1,200 UNIT/HR Amiodarone HCl 900 mg/ Sodium 500 mls @ 16.66 mls/hr 03/07/18 00:31 03/08/18 12:41 Chloride IV Not Given .Q24H WILLAM 0.5 MG/MIN Amiodarone HCl 450 mg/ Sodium 250 mls @ 33.33 mls/hr 03/06/18 18:30 03/07/18 02:11 Chloride IV 03/07/18 00:30 Infused .[id number] WILLAM Infusion 1 MG/MIN Amiodarone HCl 150 mg/ Sodium 103 mls @ 618 mls/hr 03/06/18 18:20 03/06/18 19 :59 Chloride IV 03/06/18 18:29 Infused O ONE Infusion Heparin Sodium (Porcine) 20,000 unit in 500 mls @ 35 mls/hr 03/07/18 09:00 09:19 Heparin Drip IV Not Given .[id number] WILLAM Protocol 1,400 UNIT/HR Sodium Chloride 1,000 mls @ 50 mls/hr 03/07/18 14:30 03/08/18 06:17 Normal Saline IV 03/08/18 00:30 50 mls/hr .Q20H WILLAM Infusion Cefazolin Sodium 1 g/ Sodium 100 mls @ 200 mls/hr 03/11/18 01:00 03/11/18 09: 37 Chloride IV 03/11/18 09:29 Infused Q8HR WILLAM Infusion Dopamine HCl/Dextrose 400 mg in 250 mls @ 7.073 mls/hr 03/12/18 09:46 Dopamine Drip IV .Q24H PRN Protocol 2 MCG/KG/MIN Sodium Chloride 1,000 mls @ 75 mls/hr 03/12/18 10:00 03/13/18 00:44 Normal Saline IV 03/12/18 23:19 Infused .[id number] WILLAM Infusion Dopamine HCl/Dextrose 400 mg in 250 mls @ 7.073 mls/hr 03/12/18 11:15 16:06 Dopamine Drip IV Not Given .Q24H WILLAM Protocol 2 MCG/KG/MIN Vancomycin HCl 1,000 mg/ 250 mls @ 250 mls/hr 03/14/18 08:05 03/14/18 11:38 Sodium Chloride IV 03/14/18 08:06 Infused O ONE Infusion Sodium Chloride 1,000 mls @ 125 mls/hr 03/14/18 08:15 03/14/18 18:24 Normal Saline IV 03/14/18 16:14 Infused .Q8H WILLAM Infusion Milrinone Lactate/Dextrose 20 mg in 100 mls @ 11.295 mls/hr 03/14/18 15:06 03:00 Milrinone Drip Premix IV Infused .[id number] WILLAM Infusion Protocol 0.375 MCG/KG/MIN Sodium Chloride 1,000 mls @ 75 mls/hr 03/14/18 15:06 03/14/18 15:40 Normal Saline IV 75 mls/hr .[id number] WILLAM Administration Dopamine HCl/Dextrose 400 mg in 250 mls @ 7.665 mls/hr 03/16/18 15:36 17:50 Dopamine Drip IV Infused .Q24H PRN Titration Protocol 2 MCG/KG/MIN Losartan Potassium 25 mg 03/07/18 11:00 03/08/18 12:50 Cozaar PO 25 mg DAILY WILLAM Administration Magnesium Hydroxide 30 ml 03/07/18 12:50 Mom PO DAILY PRN Constipation Methylprednisolone Sodium Succinate 125 mg 03/16/18 18:29 03/16/18 18:15 Solu-Medrol IVP 03/16/18 18:30 125 mg O ONE Administration Minocycline HCl 100 mg 03/11/18 21:00 03/18/18 08:01 Minocin PO 03/18/18 20:59 100 mg BID WILLAM Administration Mirabegron 50 mg 03/07/18 09:00 03/08/18 08:38 Myrbetriq PO 50 mg DAILY WILLAM Administration Morphine Sulfate 2 - 4 mg 03/07/18 14:20 Morphine Sulfate Inj IVP 03/08/18 14:19 Q2H PRN Pain Ondansetron HCl 4 mg 03/06/18 18:28 Zofran IVP Q6H PRN Nausea &/or vomiting Pharmacy Consult 1 each 03/11/18 15:34 Pharmacy Consult - Fall Risk 03/11/18 15:35 ONE TIME ONE Potassium Chloride 20 meq 03/08/18 21:23 03/08/18 22:08 K-Dur 20 Meq Tablet PO 03/08/18 21:24 20 meq O ONE Administration Potassium Chloride 20 meq 03/09/18 14:33 03/11/18 08:59 K-Dur 20 Meq Tablet PO 20 meq WB WILLAM Administration Potassium Chloride 40 meq 03/16/18 08:40 03/16/18 09:03 K-Dur 20 Meq Tablet PO 03/16/18 08:41 40 meq O ONE Administration Tamsulosin HCl 0.4 mg 03/07/18 18:00 03/08/18 19:04 Flomax PO 0.4 mg 1800 WILLAM Administration - Constitutional no acute distress, well nourished, cooperative - Routine HEENT Exam Head: Present: normocephalic ENT: Present: mucous membranes dry - Routine Neck Exam Absent: JVD - Routine Chest/Breast/Axilla Exam Chest wall: Present: tenderness, pacemaker - Routine Respiratory Exam Present: decreased breath sounds. Absent: dyspnea - Routine Cardiovascular Exam Present: RRR, no murmur - Routine Abdominal Exam Present: soft, non tender - Routine Extremities Exam Present: edema - Routine Skin Exam Present: intact, dry, warm - Routine Neurological Exam Present: alert - Routine Psychiatric Exam Present: normal affect - Urinary Catheter Management Urethral Cath placed during this visit: yes Urethral indwelling: Yes Insertion date: 03/06/18 Insertion time: 16:15 Results 03/19/18 04:08 03/19/18 04:08 Cardiac Enzymes 03/19/18 Range/Units 04:08 AST 86 H (17-59) U/L CBC 03/19/18 Range/Units 04:08 WBC 17.8 H (4.5-11.0) T/MM3 RBC 4.25 L (4.50-5.90) M/MM3 Hgb 13.7 D (13.5-17.5) GM/DL Hct 42.4 D (41-53) % Plt Count 99 L (130-400) T/MM3 Neut # (Auto) Not performed Lymph # (Auto) Not performed Dickens # (Auto) Not performed Eos # (Auto) Not performed Baso # (Auto) Not performed Comprehensive Metabolic Panel 03/19/18 Range/Units 04:08 Sodium 139 (134-144) MEQ/L Potassium 4.6 (3.6-5) MEQ/L Chloride 98 (98-107) MEQ/L Carbon Dioxide 29 (22-30) MEQ/L BUN 83.0 H* (9-20) MG/DL Creatinine 2.3 H D (0.8-1.5) mg/dL Glucose 100 (75-110) MG/DL Calcium 8.5 (8.4-10.2) MG/DL AST 86 H (17-59) U/L ALT 237 H (1-50) U/L Alkaline Phosphatase 87 (38-126) U/L Total Protein 6.5 (6.3-8.2) g/dL Albumin 3.4 L (3.5-5.0) g/dL Intake and Output 03/18/18 03/19/18 03/19/18 22:59 06:59 14:59 Intake Total 700 / 700 320 / 320 460 / 460 Output Total 500 / 500 400 / 400 Balance 200 / 200 -80 / -80 460 / 460 Intake: IV 100 / 100 100 / 100 100 / 100 Piperacillin/Tazobactam 2.25 gm 100 / 100 100 / 100 100 / 100 In Ns 100 ml @ 200 mls/hr IV Q8H [facility] Rx#:[id number] Oral 600 / 600 220 / 220 360 / 360 Output: Urine Amount (Catheter) 500 / 500 400 / 400 Other: Urine Appearance Cloudy Cloudy Urine Color Dark Dark Yellow Stool Color Brown Stool Consistency Soft Size of Bowel Movement Large Weight 228 lb 6.382 oz Patient Weight 03/20/18 06:59 Weight 228 lb 6.382 oz - Imaging and Cardiology Imaging & Cardiology Narrative: Date of Exam: 03/19/18 Ordering Provider: Jj Serna MD Type of Exam(s): XR chest 1V Reason for Exam(s): F/U pulmonary edema Indication: F/U pulmonary edema PROCEDURE: XR chest 1V: Encounter: Initial Comparison: March 18, 2018 Findings: Aeration of the right lower lobe continues to slowly improve. Right PICC line remains in place. No new or worsening airspace disease. No pneumothorax. Cardiac silhouette remains enlarged but unchanged. Mediastinal contours are stable. Pulmonary vascularity appears normal. Impression: Slowly improving appearance of the chest. 03/19/18 12:01 Assessment and Plan - Assessment and Plan (1) Cardiomyopathy Status: Chronic (2) HTN (hypertension) Status: Chronic (3) CAD (coronary artery disease) Status: Chronic (4) CKD (chronic kidney disease) Status: Chronic (5) Hyperlipidemia Status: Chronic (6) Acute dyspnea Status: Acute (7) Acute systolic CHF (congestive heart failure) Status: Acute (8) SVT (supraventricular tachycardia) Status: Acute (9) NSTEMI (non-ST elevated myocardial infarction) Status: Acute (10) Acute renal failure superimposed on chronic kidney disease Status: Acute - Assessment and Plan - Assessment and Plan 03/12/2018 NSTEMI (non-ST elevated myocardial infarction) - Troponin 1) 0.239, 2) 0.236, 3)0.320 4.)0.412 - WBC trending up VT/ SVT (supraventricular tachycardia) - Continue amiodarone 200 mg PO BID - EKG in am - Bi-V AICD in place - EKG: Sinus Tachycardia, no acute changes - Monitor on tele Acute dyspnea - Presented from [facility] on 4l/NC - RCAT, on 4L per NC this am - CXR no pneumothorax. Mild pulmonary vascular congestion or edema. Acute systolic CHF (congestive heart failure) - Echo: EF 10-15%, severe MR/TR - CXR: mild pulmonary vascular congestion or edema - Cr up to 3.5, BUN 91 - BNP 9080 - Will continue to hold diuresis - Pt admits heavy ETOH consumption 6-12 beers daily for many years prior to one year ago. - Will initiate NS 75 mL/hr x 10 hours - Start dopamine gtt to help perfuse kidneys Cardiomyopathy - Echo: EF 10-15%, severe MR/ TR HTN (hypertension) - Continue Coreg 6.25 mg BID CAD (coronary artery disease) - Heart cath on 03/07/18 revealed coronaries with nonobstructive disease - Continue ASA, BB and statin - Continue Plavix d/t to stent in RLE CKD (chronic kidney disease) - BUN increased to 91/SCr 3.5 (base line 1.6) - Will continue to hold diuresis - Potassium 5.2 - Renal U/S indicated no hydronephrosis or renal mass Hyperlipidemia - Continue Statin Ppx: SQ Heparin PO Ranitidine 03/13/2018 NSTEMI (non-ST elevated myocardial infarction) - Troponin 1) 0.239, 2) 0.236, 3)0.320 4.)0.412 - Likely demand 2/2 respiratory failure/pulmonary edema VT/ SVT (supraventricular tachycardia) - Continue amiodarone 200 mg PO BID - EKG in am - Bi-V AICD in place - EKG: Sinus Tachycardia with LBBB, left axis deviation and supraventricular premature complexes - Monitor on tele Acute dyspnea - Presented from [facility] on 4l/NC - RCAT, continues to need bi-pap intermittently - CXR no pneumothorax. Mild pulmonary vascular congestion or edema. Acute systolic CHF (congestive heart failure) - Echo: EF 10-15%, severe MR/TR - CXR: mild pulmonary vascular congestion or edema - Cr 3.5 yesterday/3.1 today, BUN 91 yesterday/100 today - BNP 9080 - Will continue to hold diuresis - Pt admits heavy ETOH consumption 6-12 beers daily for many years prior to one year ago. - Will initiate NS 75 mL/hr x 10 hours - Will d/c dopamine gtt - Flores to monitor I&O - + FB today - Unable to start JAGDISH/ARB d/t hypotension/CKD Cardiomyopathy - Echo: EF 10-15%, severe MR/ TR - Continue medical therapy - Bi-V AICD in place HTN (hypertension) - Continue Coreg 6.25 mg BID CAD (coronary artery disease) - Heart cath on 03/07/18 revealed coronaries with nonobstructive disease - Continue ASA, BB and statin - Continue Plavix d/t to stent in RLE Acute Renal Failure - BUN 100, Cr 3.1 - Renal U/S indicated no hydronephrosis or renal mass CKD (chronic kidney disease) - Baseline Cr 1.6) - Will continue to hold diuresis - Potassium 4.2 - Mg 2.7 Hyperlipidemia - Continue Statin Ppx: SQ Heparin PO Ranitidine 03/14/18 Dyspnea: CXR: Resolved pulmonary edema. Stable right lower lobe airspace disease. CKD: BUN 118/SCr 3.8 today Transfer to CCU for Milrinone 0.375mcg/kg drip NS at 75mL X 1 liter 03/15/2018 [facility]: CXR: increased pulmonary edema. Cr and BUN decreased. Cont milrinone gtt 0.375. - lungs sounds clear and edema not bad in right leg. - s/p BiV/ICD - incision looks good. he is not pacing. A/CKD: recent Cr 3.8 -> 3.3 today and BUN up to 121 today. no diuretic. 03/16/2018 [facility]: CXR: increased pulmonary edema. Cr and BUN decreased. Cont milrinone gtt 0.375. - lungs sounds clear and edema not bad in right lower leg. - U/O ave 40-60 this morning. U/O 30 ml/hr this afternoon. - add dopamine 2 mcg/kg/min to increase perfusion to kidneys and improve U/ O. - s/p BiV/ICD - incision looks good. he is not paced - Coreg held the last 2 mornings due to low BP. A/CKD: recent Cr 3.8 -> 3.3 -> 2.8 today and BUN down to 115 today. no diuretic. NSTEMI T2 s/p HC: no significant CAD. Cont ASa and Plavix. Thrush: add Nystatin swish and swallow. 03/17/18 [facility]: CXR: Improved aeration with decreasing interstitial/opacities bilateral. Mild residual interstitial opacities overlying the lower lung zones. - Hold Coreg due to low B/P - BUN/ Cr 103/2.5 today, wean Milrinone over next 8 hours - Heparin 5000 units q8h SQ for DVT 03/18/18 [facility]: CXR: Impression: Slightly improved aeration of the right lung base. - Resume Coreg 3.125mg BID - BUN/ SCr 86/2.0, BNP 7390 - Okay to transfer to Surgical, needs room close to Nurses desk for close observation 03/19/18 Increase Coreg to 6.25mg BID - Continue Amiodarone at this time, LFTS trending down - Continue to monitor renal BUN/ SCr 83/2.3 Hospital Course Summary Disclaimer: The visit summary below is not to be considered part of the above Progress Note. Hospital Course: Impression Leukocytosis Tachycardia Elevated LFTs Cardiomyopathy- with acute systolic failure Non-STEMI V. tach hyperlipidemia Hypertension Coronary artery disease Schizophrenia Depression History of CVA Plan Continued cardiology care as per Dr. Stahl, planning for pacemaker/ defibrillator placement later today. Patient doesn't meet nursing sepsis criteria. Given tachycardia, tachypnea and leukocytosis. All 3 of these may be multifactorial including severe cardiomyopathy and respiratory distress. Will obtain UA, Lactate and Blood cultures, Chest Xray to rule out infectious etiology Given respiratory distress will consult pulmonary, Dr Gibbs for evaluation and recommendations Monitor renal function- known CKD- Iron Melter 2.2 (Baseline Iron Melter 1.6) Continues on scheduled Bumex for diuresis- Monitor renal function Appreciate medical consultation. Will continue to follow patient. At time if discharge medical care is to return to PCP in Dr Hilda Self Case discussed with attending, Dr Serna <Jose C Stahl - Last Filed: 03/26/18 08:20> Exam Vital signs: Temperature 97.6 F 03/21/18 12:18 Pulse Rate 91 03/21/18 12:18 Respiratory Rate 18 03/21/18 12:18 Blood Pressure 134/72 03/21/18 12:18 Pulse Oximetry 94 03/21/18 12:18 Inpatient Medications: Discontinued Medications Generic Name Dose Route Start Last Admin Trade Name Freq PRN Reason Stop Dose Admin Acetaminophen 650 mg 03/06/18 18:27 Tylenol PO Q5H PRN Pain Acetaminophen 325 - 650 mg 03/07/18 14:20 03/21/18 00:26 Tylenol PO 650 mg Q5H PRN Administration Pain Hydrocodone Bitart/Acetaminophen 1 - 2 tab 03/07/18 14:20 03/21/18 11:54 [place] 5/325 PO 2 tab Q5H PRN Administration Pain Adenosine 6 mg 03/06/18 16:02 03/06/18 16:02 Adenocard IVP 03/06/18 16:03 6 mg O ONE Administration Adenosine 12 mg 03/06/18 16:06 03/06/18 16:06 Adenocard IVP 03/06/18 16:07 12 mg O ONE Administration Al Hydroxide/Mg Hydroxide 30 ml 03/07/18 14:20 Maalox Plus PO Q3H PRN Indigestion Albuterol Sulfate 2.5 mg 03/12/18 02:04 03/12/18 02:06 Proventil Neb (0.083%) AEROSOL 2.5 mg Q2HR PRN Administration Albuterol/Ipratropium 3 ml 03/10/18 11:00 03/21/18 10:36 Duoneb AEROSOL 3 ml RTQID WILLAM Administration Amiodarone HCl 200 mg 03/08/18 21:25 03/21/18 08:55 Pacerone PO 200 mg BID WILLAM Administration Amoxicillin/Clavulanate Potassium 875 mg 03/20/18 21:00 03/21/18 08:54 Augmentin 875/125 PO 875 mg Q12HR WILLAM Administration Apixaban 5 mg 03/20/18 21:00 03/21/18 08:55 Eliquis PO 5 mg BID WILLAM Administration Aspirin 81 mg 03/07/18 09:00 03/21/18 08:55 Ecotrin PO 81 mg DAILY WILLAM Administration Atorvastatin Calcium 20 mg 03/07/18 18:00 03/10/18 21:34 Lipitor PO Not Given 1800 WILLAM Atorvastatin Calcium 20 mg 03/08/18 21:00 03/15/18 20:02 Lipitor PO 20 mg HS WILLAM Administration Atropine Sulfate 0.5 mg 03/07/18 14:20 Atropine IVP Q5M PRN Bradycardia Bisacodyl 5 - 10 mg 03/07/18 14:20 03/15/18 19:08 Dulcolax PO 5 mg DAILY PRN Administration Constipation Bisacodyl 10 mg 03/07/18 14:20 Dulcolax RECTALLY DAILY PRN Constipation Budesonide/Formoterol Fumarate 2 puff 03/07/18 21:00 Symbicort Inhaler ORAL INH BID WILLAM Budesonide/Formoterol Fumarate 2 puff 03/07/18 12:39 03/21/18 09:44 Symbicort Inhaler ORAL INH 2 puff BID WILLAM Administration Bumetanide 1 mg 03/06/18 16:09 03/06/18 18:08 Bumex 1 Mg/4 Ml Inj. IVP 03/06/18 16:10 1 mg O ONE Administration Bumetanide 1 mg 03/06/18 16:10 03/06/18 18:09 Bumex 1 Mg/4 Ml Inj. IVP 03/06/18 16:11 1 mg O ONE Administration Bumetanide 1 mg 03/06/18 16:11 03/06/18 16:11 Bumex 1 Mg/4 Ml Inj. IVP 03/06/18 16:12 1 mg O ONE Administration Bumetanide 2 mg 03/07/18 21:00 03/10/18 21:33 Bumex 1 Mg/4 Ml Inj. IVP Not Given QID WILLAM Bumetanide 2 mg 03/08/18 15:00 03/09/18 04:06 Bumex 1 Mg/4 Ml Inj. IVP Not Given Q6HR WILLAM Bumetanide 1 mg 03/09/18 09:00 03/10/18 08:16 Bumex 1 Mg/4 Ml Inj. IVP 1 mg BID WILLAM Administration Bumetanide 1 mg 03/09/18 14:33 03/09/18 15:41 Bumex 1 Mg/4 Ml Inj. IVP 03/09/18 14:34 1 mg O ONE Administration Bumetanide 2 mg 03/10/18 16:07 03/10/18 20:15 Bumex 1 Mg Tab PO 2 mg [id number] WILLAM Administration Carvedilol 3.125 mg 03/07/18 10:53 03/10/18 07:52 Coreg PO 3.125 mg BIDWM WILLAM Administration Carvedilol 6.25 mg 03/10/18 16:37 03/13/18 09:29 Coreg PO 6.25 mg BIDWM WILLAM Administration Carvedilol 3.125 mg 03/14/18 09:00 03/17/18 08:28 Coreg PO 3.125 mg BIDWM WILLAM Administration Carvedilol 3.125 mg 03/18/18 08:17 03/19/18 09:10 Coreg PO 3.125 mg BIDWM WILLAM Administration Carvedilol 6.25 mg 03/19/18 17:30 03/20/18 08:49 Coreg PO 6.25 mg BIDWM WILLAM Administration Carvedilol 12.5 mg 03/20/18 17:30 03/21/18 09:00 Coreg PO 12.5 mg BIDWM WILLAM Administration Clopidogrel Bisulfate 75 mg 03/07/18 09:00 03/21/18 08:55 Plavix PO 75 mg DAILY WILLAM Administration Device 1 each 03/07/18 12:57 03/07/18 12:59 Optichamber 03/07/18 12:58 1 each O ONE Administration Docusate Sodium 100 mg 03/07/18 21:00 03/21/18 08:55 Colace PO 100 mg BID WILLAM Administration Docusate Sodium 100 mg 03/07/18 12:50 Colace PO BID PRN Furosemide 40 mg 03/16/18 18:23 03/16/18 18:25 Lasix 40 Mg/4 Ml IVP 03/16/18 18:24 40 mg O ONE Administration Furosemide 40 mg 03/16/18 19:04 03/16/18 19:05 Lasix 40 Mg/4 Ml IVP 03/16/18 19:05 40 mg O ONE Administration Heparin Sodium (Beef Lung) 6,000 unit 03/06/18 17:04 03/06/18 17:22 Heparin Bolus IVP 03/06/18 17:05 6,000 unit O ONE Administration Heparin Sodium (Beef Lung) 5,000 unit 03/06/18 22:04 03/06/18 22:10 Heparin Bolus IVP 03/06/18 22:05 5,000 unit O ONE Administration Heparin Sodium (Beef Lung) 2,000 unit 03/07/18 09:00 03/07/18 09:21 Heparin Bolus IVP 03/07/18 09:01 2,000 unit O ONE Administration Heparin Sodium (Porcine) 1 each 03/06/18 16:17 Pharmacy Consult - Heparin 03/06/18 16:18 ONE TIME ONE Heparin Sodium (Porcine) 5,000 units 03/09/18 09:00 03/09/18 21:31 Heparin Sq SQ 5,000 units Q12HR WILLAM Administration Heparin Sodium (Porcine) 5,000 units 03/11/18 09:00 03/14/18 09:26 Heparin Sq SQ 5,000 units Q12HR WILLAM Administration Heparin Sodium (Porcine) 5,000 units 03/17/18 17:00 03/20/18 08:50 Heparin Sq SQ 5,000 units Q8HR WILLAM Administration Bumetanide 25 mg/ IV Solution 100 mls @ 2 mls/hr 03/06/18 16:15 03/07/18 18: 19 IV Not Given Q24H WILLAM Heparin Sodium (Porcine) 20,000 unit in 500 mls @ 30 mls/hr 03/06/18 17:05 14:00 Heparin Drip IV Infused .[id number] WILLAM Titration Protocol 1,200 UNIT/HR Amiodarone HCl 900 mg/ Sodium 500 mls @ 16.66 mls/hr 03/07/18 00:31 03/08/18 12:41 Chloride IV Not Given .Q24H WILLAM 0.5 MG/MIN Amiodarone HCl 450 mg/ Sodium 250 mls @ 33.33 mls/hr 03/06/18 18:30 03/07/18 02:11 Chloride IV 03/07/18 00:30 Infused .[id number] WILLAM Infusion 1 MG/MIN Amiodarone HCl 150 mg/ Sodium 103 mls @ 618 mls/hr 03/06/18 18:20 03/06/18 19 :59 Chloride IV 03/06/18 18:29 Infused O ONE Infusion Heparin Sodium (Porcine) 20,000 unit in 500 mls @ 35 mls/hr 03/07/18 09:00 09:19 Heparin Drip IV Not Given .[id number] WILLAM Protocol 1,400 UNIT/HR Sodium Chloride 1,000 mls @ 50 mls/hr 03/07/18 14:30 03/08/18 06:17 Normal Saline IV 03/08/18 00:30 50 mls/hr .Q20H WILLAM Infusion Cefazolin Sodium 1 g/ Sodium 100 mls @ 200 mls/hr 03/11/18 01:00 03/11/18 09: 37 Chloride IV 03/11/18 09:29 Infused Q8HR WILLAM Infusion Dopamine HCl/Dextrose 400 mg in 250 mls @ 7.073 mls/hr 03/12/18 09:46 Dopamine Drip IV .Q24H PRN Protocol 2 MCG/KG/MIN Sodium Chloride 1,000 mls @ 75 mls/hr 03/12/18 10:00 03/13/18 00:44 Normal Saline IV 03/12/18 23:19 Infused .[id number] WILLAM Infusion Dopamine HCl/Dextrose 400 mg in 250 mls @ 7.073 mls/hr 03/12/18 11:15 16:06 Dopamine Drip IV Not Given .Q24H WILLAM Protocol 2 MCG/KG/MIN Vancomycin HCl 1,000 mg/ 250 mls @ 250 mls/hr 03/14/18 08:05 03/14/18 11:38 Sodium Chloride IV 03/14/18 08:06 Infused O ONE Infusion Piperacillin Sod/Tazobactam 100 mls @ 200 mls/hr 03/14/18 08:15 03/20/18 17: 57 Sod 2.25 gm/ Sodium Chloride IV Infused Q8H WILLAM Infusion Sodium Chloride 1,000 mls @ 125 mls/hr 03/14/18 08:15 03/14/18 18:24 Normal Saline IV 03/14/18 16:14 Infused .Q8H WILLAM Infusion Milrinone Lactate/Dextrose 20 mg in 100 mls @ 11.295 mls/hr 03/14/18 15:06 03:00 Milrinone Drip Premix IV Infused .[id number] WILLAM Infusion Protocol 0.375 MCG/KG/MIN Sodium Chloride 1,000 mls @ 75 mls/hr 03/14/18 15:06 03/14/18 15:40 Normal Saline IV 75 mls/hr .[id number] WILLAM Administration Dopamine HCl/Dextrose 400 mg in 250 mls @ 7.665 mls/hr 03/16/18 15:36 17:50 Dopamine Drip IV Infused .Q24H PRN Titration Protocol 2 MCG/KG/MIN Levothyroxine Sodium 250 mcg 03/08/18 06:30 03/16/18 06:14 Synthroid PO 250 mcg SUSA@0630 WILLAM Administration Levothyroxine Sodium 125 mcg 03/10/18 06:30 03/21/18 05:59 Synthroid PO 125 mcg MOTUWETHFR@0630 WILLAM Administration Lorazepam 0.5 - 1 mg 03/07/18 14:20 03/17/18 22:37 Ativan PO 0.5 mg Q4H PRN Administration Anxiety Lorazepam 0.5 - 1 mg 03/07/18 14:20 03/17/18 02:43 Ativan Inj IVP 0.5 mg Q4H PRN Administration Anxiety Losartan Potassium 25 mg 03/07/18 11:00 03/08/18 12:50 Cozaar PO 25 mg DAILY WILLAM Administration Magnesium Hydroxide 30 ml 03/07/18 12:50 Mom PO DAILY PRN Constipation Magnesium Hydroxide 30 ml 03/07/18 14:20 03/15/18 20:02 Mom PO 30 ml DAILY PRN Administration Constipation Methylprednisolone Sodium Succinate 125 mg 03/16/18 18:29 03/16/18 18:15 Solu-Medrol IVP 03/16/18 18:30 125 mg O ONE Administration Metoclopramide HCl 5 - 10 mg 03/07/18 14:20 03/13/18 01:47 Reglan IVP 10 mg Q6H PRN Administration Nausea &/or vomiting Minocycline HCl 100 mg 03/11/18 21:00 03/18/18 08:01 Minocin PO 03/18/18 20:59 100 mg BID WILLAM Administration Mirabegron 50 mg 03/07/18 09:00 03/08/18 08:38 Myrbetriq PO 50 mg DAILY WILLAM Administration Morphine Sulfate 2 - 4 mg 03/07/18 14:20 Morphine Sulfate Inj IVP 03/08/18 14:19 Q2H PRN Pain Morphine Sulfate 2 - 4 mg 03/07/18 14:20 Morphine Sulfate Inj IVP Q5M PRN Angina Neomycin/Polymyxin/Bacitracin 1 applic 03/21/18 10:53 03/21/18 11:03 Neosporin TP 05/04/18 10:54 1 applic O ONE Administration Nitroglycerin 0.4 mg 03/07/18 14:20 Nitrostat SL Q5M PRN Angina Nystatin 5 ml 03/16/18 17:00 03/21/18 09:56 Mycostatin PO 5 ml QID WILLAM Administration Nystatin 1 applic 03/19/18 16:59 Mycostatin TP BID PRN Ondansetron HCl 4 mg 03/06/18 18:28 Zofran IVP Q6H PRN Nausea &/or vomiting Ondansetron HCl 4 mg 03/07/18 14:20 03/21/18 05:59 Zofran IVP 4 mg Q6H PRN Administration Nausea &/or vomiting Pharmacy Consult 1 each 03/11/18 15:34 Pharmacy Consult - Fall Risk 03/11/18 15:35 ONE TIME ONE Polyethylene Glycol 17 gm 03/16/18 09:00 03/21/18 09:00 Miralax PO 17 gm DAILY WILLAM Administration Potassium Chloride 20 meq 03/08/18 21:23 03/08/18 22:08 K-Dur 20 Meq Tablet PO 03/08/18 21:24 20 meq O ONE Administration Potassium Chloride 20 meq 03/09/18 14:33 03/11/18 08:59 K-Dur 20 Meq Tablet PO 20 meq WB WILLAM Administration Potassium Chloride 40 meq 03/16/18 08:40 03/16/18 09:03 K-Dur 20 Meq Tablet PO 03/16/18 08:41 40 meq O ONE Administration Promethazine HCl 12.5 - 25 mg 03/07/18 14:20 Phenergan Inj IVP Q6HR PRN Nausea &/or vomiting Ranitidine HCl 150 mg 03/07/18 18:00 03/20/18 17:41 Zantac PO 150 mg 1800 WILLAM Administration Sodium Chloride 10 - 80 ml 03/09/18 14:34 03/20/18 16:59 Iv Flush IV 20 ml PRN PRN Administration Flushing Sodium Chloride 10 ml 03/10/18 20:02 Iv Flush IV PRN PRN Flushing Sodium Chloride 500 ml 03/20/18 08:43 03/20/18 08:49 Normal Saline IV 500 ml PRN PRN Administration Tamsulosin HCl 0.4 mg 03/07/18 18:00 03/08/18 19:04 Flomax PO 0.4 mg 1800 WILLAM Administration Tramadol HCl 50 mg 03/06/18 18:28 03/20/18 23:44 Ultram PO 50 mg Q6H PRN Administration Pain - Urinary Catheter Management Urethral Cath placed during this visit: no Results 03/21/18 04:45 03/21/18 04:45 Assessment and Plan - Assessment and Plan (1) Cardiomyopathy Status: Chronic (2) HTN (hypertension) Status: Chronic (3) CAD (coronary artery disease) Status: Chronic (4) CKD (chronic kidney disease) Status: Chronic (5) Hyperlipidemia Status: Chronic (6) Acute dyspnea Status: Acute (7) Acute systolic CHF (congestive heart failure) Status: Acute (8) SVT (supraventricular tachycardia) Status: Acute (9) NSTEMI (non-ST elevated myocardial infarction) Status: Acute (10) Acute renal failure superimposed on chronic kidney disease Status: Acute - Attestation Attestation Narrative: 03/26/18 08:20 Recommendation After examining the patient I agree with the above assessment. I am involved in the formulation of the patient's plan of care. Hospital Course Summary Disclaimer: The visit summary below is not to be considered part of the above Progress Note.
[2018-03-19] MEDS: CARVEDILOL 6.25 MG TABLET PO SCH (17:51)
--- NOTE | 2018-03-19 18:15 | Progress Note ---
- Date 03/19/18 Subjective: F/U: Acute resp failure, pulm edema, pneumonia Stilling in bed, breathing on O2. Breathing 'fair' - some congestion, but not having pain with breathing or cough. Bowels moving-not liquid. Nursing reports urine more cloudy. Objective Vital signs: Temperature 96.2 F L 03/19/18 16:51 Pulse Rate 82 03/19/18 16:51 Respiratory Rate 16 03/19/18 16:51 Blood Pressure 121/72 03/19/18 16:51 Pulse Oximetry 100 03/19/18 16:51 Height/Weight/BMI: Height 1.73 m Weight 103.6 kg Body Mass Index 35.0 - Constitutional Present: well nourished, well developed, obese, cooperative - Routine HEENT Exam Head: Present: normocephalic, atraumatic Eye: Present: EOMI, PERRL ENT: Present: mucous membranes moist - Routine Respiratory Exam Present: decreased breath sounds, rhonchi (faint). Absent: respiratory distress - Routine Cardiovascular Exam Present: RRR - Routine Abdominal Exam Present: soft, normoactive bowel sounds, non distended, non tender - Routine Extremities Exam Present: no edema (+2 LE ), pulses intact. Absent: cyanosis, clubbing - Routine Musculoskeletal Exam Musculoskeletal: Present: no clubbing or cyanosis - Routine Skin Exam Present: dry, warm - Routine Neurological Exam Present: alert, CN II-XII intact, moving all extremities, vision grossly intact. Absent: altered mental status - Routine Psychiatric Exam Present: normal affect, cooperative. Absent: anxious, agitated (Follows commands well) Results - Labs CBC & Chem 7: 03/19/18 04:08 03/19/18 04:08 Microbiology Results: Microbiology 03/14/18 08:13 Peripheral/Iv Start Gram Stain - Final Not performed 03/14/18 08:17 Peripheral/Iv Start Blood Culture - Final No Growth After 5 Days 03/16/18 17:44 Sputum, Expectorated Gram Stain - Final 03/16/18 17:44 Sputum, Expectorated Sputum Culture - Final Tawnya albicans Normal Respiratory Nuria 03/10/18 09:48 Peripheral/Iv Start Gram Stain - Final Not performed 03/10/18 09:48 Peripheral/Iv Start Blood Culture - Final No Growth After 5 Days 03/10/18 09:47 Peripheral/Iv Start Gram Stain - Final Not performed 03/10/18 09:47 Peripheral/Iv Start Blood Culture - Final No Growth After 5 Days Assessment and Plan (1) Leukocytosis Current visit: Yes Status: Acute Assessment and Plan: Assessment Suspect pneumonia - infiltrate on CXR decreasing Leukocytosis Pulmonary edema Acute Dyspnea/Hypoxic respiratory failure - tolerating BiPAP Mild acidosis with +AG - resolved. VT/SVT S/P cardioversion -Bi V ICD placed on 03/10/18 -On amiodarone 200mg BID, On Beta clarita with hold parameters for BP PAF - Self converted Elevated LFTs Severe, Dilated, Non ischemic Cardiomyopathy -EF 10% with severe MR -Pt admits heavy ETOH consumption 6-12 beers daily for many years prior to one year ago. -On Coreg with hold parameters for BP -Not on JAGDISH I or ARB due to low normal BP and acute on CKD -Bi V ICD placed Systolic Heart failure Hyperlipidemia -On a statin-hold for now due to elevated LFTs Hypertension NSTEMI - Likely Type 2 Mild thrombocytopenia (Not POA) PAD Acute Kidney injury - improving Stage III CKD Hyperkalemia (Not POA) Hypokalemia (Not POA) Thrush Abdominal distention - ileus vs constipation Schizophrenia Depression History of CVA Chronic pain Obesity Plan Continue with Zosyn for pulmonary coverage. WBC with slight decrease today. Renal status stable - creatinine with slight increase to 2.3. Breathing making gains - weaning off BiPAP. Cardiac care and medications as per cardiology. Bowel moving well. Will check UA secondary to cloudy urine. Will recheck CBC in am to to resolving leukocytosis/pneumonia. Will recheck CMP in am due to JIMMIE and elevated LFTs. Case discussed with nursing. Time spent with patient care 25 minutes. DVT Prophylaxis: SCD's, Lovenox Resuscitation Status: Full Code - Time spent with patient Time with patient PN: 25 minutes - Physician Narrative Physician: Jj Serna MD Narrative: Date: 03/19/18 Time: 1811 Hospital Course Summary Disclaimer: The visit summary below is not to be considered part of the above Progress Note.
[2018-03-20] MEDS: PIPERACILLIN/TAZOBACTAM 2.25 GM in NS 100 ML IV SCH ×3 (00:08→16:59)
[2018-03-20] MEDS: HEPARIN SUB-Q 5,000units/0.5ml INJECTION SQ SCH ×2 (00:08→08:50)
[2018-03-20] MEDS: LEVOTHYROXINE 125 MCG TABLET PO SCH ×2 (05:46)
[2018-03-20] MEDS: ALBUTEROL/IPRATROPIUM 2.5mg-0.5mg/3ml NEB AEROSOL SCH ×4 (07:43→19:32)
[2018-03-20] MEDS ORDERED: NS FLUSH BAG 500ml IV PRN (08:43)
[2018-03-20] MEDS: CARVEDILOL 6.25 MG TABLET PO SCH (08:49)
[2018-03-20] MEDS: ASPIRIN *EC* 81 MG TABLET PO SCH (08:49)
[2018-03-20] MEDS: CLOPIDOGREL 75 MG TABLET PO SCH (08:49)
[2018-03-20] MEDS: AMIODARONE 200 MG TABLET PO SCH ×2 (08:49→22:38)
[2018-03-20] MEDS: DOCUSATE SODIUM 100 MG CAPSULE PO SCH ×2 (08:50→22:38)
[2018-03-20] MEDS: NYSTATIN 500,000 units/5 ml ORAL LIQUID PO SCH ×4 (08:50→22:37)
[2018-03-20] MEDS: TRAMADOL 50 MG TABLET PO PRN ×3 (08:50→23:44)
[2018-03-20] MEDS: POLYETHYL GLYCOL 3350 17gm PACKET PO SCH (08:51)
[2018-03-20] MEDS: SALINE FLUSH 10ml SYRINGE IV PRN ×2 (08:52→16:59)
[2018-03-20] MEDS: HYDROCODONE/APAP 5mg/325mg TABLET PO PRN ×2 (09:57→22:37)
--- NOTE | 2018-03-20 12:49 | Pulmonology Progress Note ---
Subjective Principal diagnosis: SCHF, NSTEMI Interval history: alert and awake. sitting up, on 2 lpm nc still using BIPAP at night Exam Vital signs: Temperature 97.9 F 03/20/18 07:40 Pulse Rate 103 H 03/20/18 07:40 Respiratory Rate 20 03/20/18 10:59 Blood Pressure 149/84 H 03/20/18 07:40 Pulse Oximetry 96 03/20/18 07:44 Inpatient Medications: Generic Name Dose Route Start Last Admin Trade Name Freq PRN Reason Stop Dose Admin Acetaminophen 325 - 650 mg 03/07/18 14:20 03/19/18 04:55 Tylenol PO 650 mg Q5H PRN Administration Pain Hydrocodone Bitart/Acetaminophen 1 - 2 tab 03/07/18 14:20 03/20/18 09:57 [place] 5/325 PO 2 tab Q5H PRN Administration Pain Al Hydroxide/Mg Hydroxide 30 ml 03/07/18 14:20 Maalox Plus PO Q3H PRN Indigestion Albuterol Sulfate 2.5 mg 03/12/18 02:04 03/12/18 02:06 Proventil Neb (0.083%) AEROSOL 2.5 mg Q2HR PRN Administration Albuterol/Ipratropium 3 ml 03/10/18 11:00 03/20/18 10:59 Duoneb AEROSOL 3 ml RTQID WILLAM Administration Amiodarone HCl 200 mg 03/08/18 21:25 03/20/18 08:49 Pacerone PO 200 mg BID WILLAM Administration Aspirin 81 mg 03/07/18 09:00 03/20/18 08:49 Ecotrin PO 81 mg DAILY WILLAM Administration Atropine Sulfate 0.5 mg 03/07/18 14:20 Atropine IVP Q5M PRN Bradycardia Bisacodyl 5 - 10 mg 03/07/18 14:20 03/15/18 19:08 Dulcolax PO 5 mg DAILY PRN Administration Constipation Bisacodyl 10 mg 03/07/18 14:20 Dulcolax RECTALLY DAILY PRN Constipation Budesonide/Formoterol Fumarate 2 puff 03/07/18 12:39 03/20/18 09:19 Symbicort Inhaler ORAL INH 2 puff BID WILLAM Administration Carvedilol 6.25 mg 03/19/18 17:30 03/20/18 08:49 Coreg PO 6.25 mg BIDWM [facility] Administration Clopidogrel Bisulfate 75 mg 03/07/18 09:00 03/20/18 08:49 Plavix PO 75 mg DAILY [facility] Administration Docusate Sodium 100 mg 03/07/18 21:00 03/20/18 08:50 Colace PO 100 mg BID WILLAM Administration Docusate Sodium 100 mg 03/07/18 12:50 Colace PO BID PRN Heparin Sodium (Porcine) 5,000 units 03/17/18 17:00 03/20/18 08:50 Heparin Sq SQ 5,000 units Q8HR [facility] Administration Piperacillin Sod/Tazobactam 100 mls @ 200 mls/hr 03/14/18 08:15 03/20/18 09: 19 Sod 2.25 gm/ Sodium Chloride IV Infused Q8H [facility] Infusion Levothyroxine Sodium 250 mcg 03/08/18 06:30 03/16/18 06:14 Synthroid PO 250 mcg SUSA@0630 [facility] Administration Levothyroxine Sodium 125 mcg 03/10/18 06:30 03/20/18 05:46 Synthroid PO 125 mcg MOTUWETHFR@0630 [facility] Administration Lorazepam 0.5 - 1 mg 03/07/18 14:20 03/17/18 22:37 Ativan PO 0.5 mg Q4H PRN Administration Anxiety Lorazepam 0.5 - 1 mg 03/07/18 14:20 03/17/18 02:43 Ativan Inj IVP 0.5 mg Q4H PRN Administration Anxiety Magnesium Hydroxide 30 ml 03/07/18 14:20 03/15/18 20:02 Mom PO 30 ml DAILY PRN Administration Constipation Metoclopramide HCl 5 - 10 mg 03/07/18 14:20 03/13/18 01:47 Reglan IVP 10 mg Q6H PRN Administration Nausea &/or vomiting Morphine Sulfate 2 - 4 mg 03/07/18 14:20 Morphine Sulfate Inj IVP Q5M PRN Angina Nitroglycerin 0.4 mg 03/07/18 14:20 Nitrostat SL Q5M PRN Angina Nystatin 5 ml 03/16/18 17:00 03/20/18 08:50 Mycostatin PO 5 ml QID [facility] Administration Nystatin 1 applic 03/19/18 16:59 Mycostatin TP BID PRN Ondansetron HCl 4 mg 03/07/18 14:20 03/17/18 23:37 Zofran IVP 4 mg Q6H PRN Administration Nausea &/or vomiting Polyethylene Glycol 17 gm 03/16/18 09:00 03/20/18 08:51 Miralax PO 17 gm DAILY WILLAM Administration Promethazine HCl 12.5 - 25 mg 03/07/18 14:20 Phenergan Inj IVP Q6HR PRN Nausea &/or vomiting Ranitidine HCl 150 mg 03/07/18 18:00 03/19/18 17:51 Zantac PO 150 mg 1800 WILLAM Administration Sodium Chloride 10 - 80 ml 03/09/18 14:34 03/20/18 08:52 Iv Flush IV 40 ml PRN PRN Administration Flushing Sodium Chloride 10 ml 03/10/18 20:02 Iv Flush IV PRN PRN Flushing Sodium Chloride 500 ml 03/20/18 08:43 03/20/18 08:49 Normal Saline IV 500 ml PRN PRN Administration Tramadol HCl 50 mg 03/06/18 18:28 03/20/18 08:50 Ultram PO 50 mg Q6H PRN Administration Pain Discontinued Medications Generic Name Dose Route Start Last Admin Trade Name Freq PRN Reason Stop Dose Admin Acetaminophen 650 mg 03/06/18 18:27 Tylenol PO Q5H PRN Pain Adenosine 6 mg 03/06/18 16:02 03/06/18 16:02 Adenocard IVP 03/06/18 16:03 6 mg O ONE Administration Adenosine 12 mg 03/06/18 16:06 03/06/18 16:06 Adenocard IVP 03/06/18 16:07 12 mg O ONE Administration Atorvastatin Calcium 20 mg 03/07/18 18:00 03/10/18 21:34 Lipitor PO Not Given 1800 WILLAM Atorvastatin Calcium 20 mg 03/08/18 21:00 03/15/18 20:02 Lipitor PO 20 mg HS WILLAM Administration Budesonide/Formoterol Fumarate 2 puff 03/07/18 21:00 Symbicort Inhaler ORAL INH BID WILLAM Bumetanide 1 mg 03/06/18 16:09 03/06/18 18:08 Bumex 1 Mg/4 Ml Inj. IVP 03/06/18 16:10 1 mg O ONE Administration Bumetanide 1 mg 03/06/18 16:10 03/06/18 18:09 Bumex 1 Mg/4 Ml Inj. IVP 03/06/18 16:11 1 mg O ONE Administration Bumetanide 1 mg 03/06/18 16:11 03/06/18 16:11 Bumex 1 Mg/4 Ml Inj. IVP 03/06/18 16:12 1 mg O ONE Administration Bumetanide 2 mg 03/07/18 21:00 03/10/18 21:33 Bumex 1 Mg/4 Ml Inj. IVP Not Given QID WILLAM Bumetanide 2 mg 03/08/18 15:00 03/09/18 04:06 Bumex 1 Mg/4 Ml Inj. IVP Not Given Q6HR WILLAM Bumetanide 1 mg 03/09/18 09:00 03/10/18 08:16 Bumex 1 Mg/4 Ml Inj. IVP 1 mg BID WILLAM Administration Bumetanide 1 mg 03/09/18 14:33 03/09/18 15:41 Bumex 1 Mg/4 Ml Inj. IVP 03/09/18 14:34 1 mg O ONE Administration Bumetanide 2 mg 03/10/18 16:07 03/10/18 20:15 Bumex 1 Mg Tab PO 2 mg [id number] WILLAM Administration Carvedilol 3.125 mg 03/07/18 10:53 03/10/18 07:52 Coreg PO 3.125 mg BIDWM WILLAM Administration Carvedilol 6.25 mg 03/10/18 16:37 03/13/18 09:29 Coreg PO 6.25 mg BIDWM WILLAM Administration Carvedilol 3.125 mg 03/14/18 09:00 03/17/18 08:28 Coreg PO 3.125 mg BIDWM WILLAM Administration Carvedilol 3.125 mg 03/18/18 08:17 03/19/18 09:10 Coreg PO 3.125 mg BIDWM WILLAM Administration Device 1 each 03/07/18 12:57 03/07/18 12:59 Optichamber 03/07/18 12:58 1 each O ONE Administration Furosemide 40 mg 03/16/18 18:23 03/16/18 18:25 Lasix 40 Mg/4 Ml IVP 03/16/18 18:24 40 mg O ONE Administration Furosemide 40 mg 03/16/18 19:04 03/16/18 19:05 Lasix 40 Mg/4 Ml IVP 03/16/18 19:05 40 mg O ONE Administration Heparin Sodium (Beef Lung) 6,000 unit 03/06/18 17:04 03/06/18 17:22 Heparin Bolus IVP 03/06/18 17:05 6,000 unit O ONE Administration Heparin Sodium (Beef Lung) 5,000 unit 03/06/18 22:04 03/06/18 22:10 Heparin Bolus IVP 03/06/18 22:05 5,000 unit O ONE Administration Heparin Sodium (Beef Lung) 2,000 unit 03/07/18 09:00 03/07/18 09:21 Heparin Bolus IVP 03/07/18 09:01 2,000 unit O ONE Administration Heparin Sodium (Porcine) 1 each 03/06/18 16:17 Pharmacy Consult - Heparin 03/06/18 16:18 ONE TIME ONE Heparin Sodium (Porcine) 5,000 units 03/09/18 09:00 03/09/18 21:31 Heparin Sq SQ 5,000 units Q12HR WILLAM Administration Heparin Sodium (Porcine) 5,000 units 03/11/18 09:00 03/14/18 09:26 Heparin Sq SQ 5,000 units Q12HR WILLAM Administration Bumetanide 25 mg/ IV Solution 100 mls @ 2 mls/hr 03/06/18 16:15 03/07/18 18: 19 IV Not Given Q24H WILLAM Heparin Sodium (Porcine) 20,000 unit in 500 mls @ 30 mls/hr 03/06/18 17:05 14:00 Heparin Drip IV Infused .[id number] WILLAM Titration Protocol 1,200 UNIT/HR Amiodarone HCl 900 mg/ Sodium 500 mls @ 16.66 mls/hr 03/07/18 00:31 03/08/18 12:41 Chloride IV Not Given .Q24H WILLAM 0.5 MG/MIN Amiodarone HCl 450 mg/ Sodium 250 mls @ 33.33 mls/hr 03/06/18 18:30 03/07/18 02:11 Chloride IV 03/07/18 00:30 Infused .[id number] WILLAM Infusion 1 MG/MIN Amiodarone HCl 150 mg/ Sodium 103 mls @ 618 mls/hr 03/06/18 18:20 03/06/18 19 :59 Chloride IV 03/06/18 18:29 Infused O ONE Infusion Heparin Sodium (Porcine) 20,000 unit in 500 mls @ 35 mls/hr 03/07/18 09:00 09:19 Heparin Drip IV Not Given .[id number] WILLAM Protocol 1,400 UNIT/HR Sodium Chloride 1,000 mls @ 50 mls/hr 03/07/18 14:30 03/08/18 06:17 Normal Saline IV 03/08/18 00:30 50 mls/hr .Q20H WILLAM Infusion Cefazolin Sodium 1 g/ Sodium 100 mls @ 200 mls/hr 03/11/18 01:00 03/11/18 09: 37 Chloride IV 03/11/18 09:29 Infused Q8HR WILLAM Infusion Dopamine HCl/Dextrose 400 mg in 250 mls @ 7.073 mls/hr 03/12/18 09:46 Dopamine Drip IV .Q24H PRN Protocol 2 MCG/KG/MIN Sodium Chloride 1,000 mls @ 75 mls/hr 03/12/18 10:00 03/13/18 00:44 Normal Saline IV 03/12/18 23:19 Infused .[id number] WILLAM Infusion Dopamine HCl/Dextrose 400 mg in 250 mls @ 7.073 mls/hr 03/12/18 11:15 16:06 Dopamine Drip IV Not Given .Q24H WILLAM Protocol 2 MCG/KG/MIN Vancomycin HCl 1,000 mg/ 250 mls @ 250 mls/hr 03/14/18 08:05 03/14/18 11:38 Sodium Chloride IV 03/14/18 08:06 Infused O ONE Infusion Sodium Chloride 1,000 mls @ 125 mls/hr 03/14/18 08:15 03/14/18 18:24 Normal Saline IV 03/14/18 16:14 Infused .Q8H WILLAM Infusion Milrinone Lactate/Dextrose 20 mg in 100 mls @ 11.295 mls/hr 03/14/18 15:06 03:00 Milrinone Drip Premix IV Infused .[id number] WILLAM Infusion Protocol 0.375 MCG/KG/MIN Sodium Chloride 1,000 mls @ 75 mls/hr 03/14/18 15:06 03/14/18 15:40 Normal Saline IV 75 mls/hr .[id number] WILLAM Administration Dopamine HCl/Dextrose 400 mg in 250 mls @ 7.665 mls/hr 03/16/18 15:36 17:50 Dopamine Drip IV Infused .Q24H PRN Titration Protocol 2 MCG/KG/MIN Losartan Potassium 25 mg 03/07/18 11:00 03/08/18 12:50 Cozaar PO 25 mg DAILY WILLAM Administration Magnesium Hydroxide 30 ml 03/07/18 12:50 Mom PO DAILY PRN Constipation Methylprednisolone Sodium Succinate 125 mg 03/16/18 18:29 03/16/18 18:15 Solu-Medrol IVP 03/16/18 18:30 125 mg O ONE Administration Minocycline HCl 100 mg 03/11/18 21:00 03/18/18 08:01 Minocin PO 03/18/18 20:59 100 mg BID WILLAM Administration Mirabegron 50 mg 03/07/18 09:00 03/08/18 08:38 Myrbetriq PO 50 mg DAILY WILLAM Administration Morphine Sulfate 2 - 4 mg 03/07/18 14:20 Morphine Sulfate Inj IVP 03/08/18 14:19 Q2H PRN Pain Ondansetron HCl 4 mg 03/06/18 18:28 Zofran IVP Q6H PRN Nausea &/or vomiting Pharmacy Consult 1 each 03/11/18 15:34 Pharmacy Consult - Fall Risk 03/11/18 15:35 ONE TIME ONE Potassium Chloride 20 meq 03/08/18 21:23 03/08/18 22:08 K-Dur 20 Meq Tablet PO 03/08/18 21:24 20 meq O ONE Administration Potassium Chloride 20 meq 03/09/18 14:33 03/11/18 08:59 K-Dur 20 Meq Tablet PO 20 meq WB WILLAM Administration Potassium Chloride 40 meq 03/16/18 08:40 03/16/18 09:03 K-Dur 20 Meq Tablet PO 03/16/18 08:41 40 meq O ONE Administration Tamsulosin HCl 0.4 mg 03/07/18 18:00 03/08/18 19:04 Flomax PO 0.4 mg 1800 WILLAM Administration - Constitutional no acute distress - Routine HEENT Exam Head: Present: normocephalic Eye: Absent: conjunctival icterus - Routine Neck Exam Present: supple - Routine Respiratory Exam Present: decreased breath sounds. Absent: wheezes - Routine Cardiovascular Exam Present: RRR - Urinary Catheter Management Urethral Cath placed during this visit: yes Urethral indwelling: Yes Insertion date: 03/06/18 Insertion time: 16:15 Results - Laboratory Findings Laboratory: Laboratory Results - last 48 hr 03/19/18 03/19/18 03/19/18 04:08 04:08 18:08 WBC 17.8 H RBC 4.25 L Hgb 13.7 D Hct 42.4 D MCV 99.8 MCH 32.2 MCHC 32.3 RDW Std Deviation 58.6 H Plt Count 99 L MPV 11.9 Immature Gran % (Auto) Not performed Neut % (Auto) Not performed Lymph % (Auto) Not performed [place] % (Auto) Not performed Eos % (Auto) Not performed Baso % (Auto) Not performed Neut # (Auto) Not performed Lymph # (Auto) Not performed [place] # (Auto) Not performed Eos # (Auto) Not performed Baso # (Auto) Not performed Abs Immat Gran (auto) Not performed Neutrophils % (Manual) 76.0 H Band Neutrophils % Lymphocytes % (Manual) 14.0 L Monocytes % (Manual) 10.0 H Neutrophils # (Manual) 13.5 H Band Neutrophils # Lymphocytes # (Manual) 2.5 Monocytes # (Manual) 1.8 H Nucleated RBCs 1 Poikilocytosis 1+ Anisocytosis 1+ Tear Drop Cells 1+ RBC Morph Comment Abnormal Turbidity < 20 Sodium 139 Potassium 4.6 Chloride 98 Carbon Dioxide 29 Anion Gap 12 BUN 83.0 H* Creatinine 2.3 H D GFR Calculation 30 BUN/Creatinine Ratio 36 H Glucose 100 Calculated Osmolality 293 H Calcium 8.5 Total Bilirubin 1.00 Icterus Index < 2 AST 86 H ALT 237 H Alkaline Phosphatase 87 Total Protein 6.5 Albumin 3.4 L Globulin 3.1 Albumin/Globulin Ratio 1.1 Specimen Hemolysis 18 Ur Collection Type Urine, cath mcintyre Urine Color Yellow Urine Clarity Cloudy Urine pH 6.0 Ur Specific [place] 1.020 Urine Protein 2+ A Urine Glucose (UA) Negative Urine Ketones Negative Urine Occult Blood 3+ A Urine Nitrate Negative Urine Bilirubin Negative Urine Urobilinogen 0.2 Ur Leukocyte Esterase Trace A Urine RBC 20-30 H Urine WBC 0-1 Uric Acid Crystals Moderate Urine Bacteria Trace H Ur Culture Indicated? Cult not indicated 03/20/18 03/20/18 04:32 04:32 WBC 19.0 H RBC 4.41 L Hgb 14.3 Hct 44.3 MCV 100.5 H MCH 32.4 MCHC 32.3 RDW Std Deviation 60.4 H Plt Count 148 D MPV 11.1 Immature Gran % (Auto) Not performed Neut % (Auto) Not performed Lymph % (Auto) Not performed [place] % (Auto) Not performed Eos % (Auto) Not performed Baso % (Auto) Not performed Neut # (Auto) Not performed Lymph # (Auto) Not performed [place] # (Auto) Not performed Eos # (Auto) Not performed Baso # (Auto) Not performed Abs Immat Gran (auto) Not performed Neutrophils % (Manual) 76.0 H Band Neutrophils % 1.0 Lymphocytes % (Manual) 9.0 L Monocytes % (Manual) 14.0 H Neutrophils # (Manual) 14.4 H Band Neutrophils # 0.2 Lymphocytes # (Manual) 1.7 Monocytes # (Manual) 2.7 H Nucleated RBCs Poikilocytosis Anisocytosis Tear Drop Cells RBC Morph Comment Normal Turbidity < 20 Sodium 139 Potassium 5.0 Chloride 98 Carbon Dioxide 26 Anion Gap 15 BUN 78.0 H* Creatinine 2.0 H D GFR Calculation 35 BUN/Creatinine Ratio 39 H Glucose 110 Calculated Osmolality 292 H Calcium 8.6 Total Bilirubin 1.30 Icterus Index < 2 AST 72 H ALT 187 H Alkaline Phosphatase 90 Total Protein 6.7 Albumin 3.7 Globulin 3.0 Albumin/Globulin Ratio 1.2 Specimen Hemolysis 16 Ur Collection Type Urine Color Urine Clarity Urine pH Ur Specific [place] Urine Protein Urine Glucose (UA) Urine Ketones Urine Occult Blood Urine Nitrate Urine Bilirubin Urine Urobilinogen Ur Leukocyte Esterase Urine RBC Urine WBC Uric Acid Crystals Urine Bacteria Ur Culture Indicated? Assessment and Plan (1) Acute respiratory failure with hypoxemia Status: Acute Assessment and plan: Recommend resuming CPAP at night and prn. Current Visit: Yes (2) COPD (chronic obstructive pulmonary disease) Status: Acute Assessment and plan: Budesonide/formoterol BID (Symbicort), neb albuterol/iprat as needed O2 to keep sat > 90% Current Visit: Yes - Assessment and Plan Acute Hypoxic respiratory Failure COPD Pulmonary edema Nonischemic Cardiomyopathy/systolic HF EF 10-15% VHD svere MR/TR Vtach NSTEM JMIMIE on CKD (Baseline Kitchen Lead 1.6) - Time Spent With Patient Total time spent is greater than 50% in coordination of care (as documented) at patient's floor/unit and/or counseling patient: less than 15 minutes
--- NOTE | 2018-03-20 14:50 | Cardiology Progress Note ---
<Kylee Richards - Last Filed: 03/21/18 09:36> Subjective Principal diagnosis: SCHF, NSTEMI Interval history: Mirza is seen in follow up for NSTEMI, SVT, and sustained VT that required cardioversion at bedside. He is seen in his room on Surgical, parents are at the bedside. Discussed with them the plan to discharge to care home for continue therapy for strengthening. He denies chest pain or pressure, SOA, dizziness or nausea. Exam Vital signs: Temperature 97.9 F 03/20/18 07:40 Pulse Rate 103 H 03/20/18 07:40 Respiratory Rate 20 03/20/18 10:59 Blood Pressure 149/84 H 03/20/18 07:40 Pulse Oximetry 96 03/20/18 07:44 Inpatient Medications: Generic Name Dose Route Start Last Admin Trade Name Freq PRN Reason Stop Dose Admin Acetaminophen 325 - 650 mg 03/07/18 14:20 03/19/18 04:55 Tylenol PO 650 mg Q5H PRN Administration Pain Hydrocodone Bitart/Acetaminophen 1 - 2 tab 03/07/18 14:20 03/20/18 09:57 [place] 5/325 PO 2 tab Q5H PRN Administration Pain Al Hydroxide/Mg Hydroxide 30 ml 03/07/18 14:20 Maalox Plus PO Q3H PRN Indigestion Albuterol Sulfate 2.5 mg 03/12/18 02:04 03/12/18 02:06 Proventil Neb (0.083%) AEROSOL 2.5 mg Q2HR PRN Administration Albuterol/Ipratropium 3 ml 03/10/18 11:00 03/20/18 10:59 Duoneb AEROSOL 3 ml RTQID WILLAM Administration Amiodarone HCl 200 mg 03/08/18 21:25 03/20/18 08:49 Pacerone PO 200 mg BID WILLAM Administration Aspirin 81 mg 03/07/18 09:00 03/20/18 08:49 Ecotrin PO 81 mg DAILY WILLAM Administration Atropine Sulfate 0.5 mg 03/07/18 14:20 Atropine IVP Q5M PRN Bradycardia Bisacodyl 5 - 10 mg 03/07/18 14:20 03/15/18 19:08 Dulcolax PO 5 mg DAILY PRN Administration Constipation Bisacodyl 10 mg 03/07/18 14:20 Dulcolax RECTALLY DAILY PRN Constipation Budesonide/Formoterol Fumarate 2 puff 03/07/18 12:39 03/20/18 09:19 Symbicort Inhaler ORAL INH 2 puff BID [facility] Administration Carvedilol 6.25 mg 03/19/18 17:30 03/20/18 08:49 Coreg PO 6.25 mg BIDWM [facility] Administration Clopidogrel Bisulfate 75 mg 03/07/18 09:00 03/20/18 08:49 Plavix PO 75 mg DAILY [facility] Administration Docusate Sodium 100 mg 03/07/18 21:00 03/20/18 08:50 Colace PO 100 mg BID [facility] Administration Docusate Sodium 100 mg 03/07/18 12:50 Colace PO BID PRN Heparin Sodium (Porcine) 5,000 units 03/17/18 17:00 03/20/18 08:50 Heparin Sq SQ 5,000 units Q8HR [facility] Administration Piperacillin Sod/Tazobactam 100 mls @ 200 mls/hr 03/14/18 08:15 03/20/18 09: 19 Sod 2.25 gm/ Sodium Chloride IV Infused Q8H [facility] Infusion Levothyroxine Sodium 250 mcg 03/08/18 06:30 03/16/18 06:14 Synthroid PO 250 mcg SUSA@0630 [facility] Administration Levothyroxine Sodium 125 mcg 03/10/18 06:30 03/20/18 05:46 Synthroid PO 125 mcg MOTUWETHFR@0630 [facility] Administration Lorazepam 0.5 - 1 mg 03/07/18 14:20 03/17/18 22:37 Ativan PO 0.5 mg Q4H PRN Administration Anxiety Lorazepam 0.5 - 1 mg 03/07/18 14:20 03/17/18 02:43 Ativan Inj IVP 0.5 mg Q4H PRN Administration Anxiety Magnesium Hydroxide 30 ml 03/07/18 14:20 03/15/18 20:02 Mom PO 30 ml DAILY PRN Administration Constipation Metoclopramide HCl 5 - 10 mg 03/07/18 14:20 03/13/18 01:47 Reglan IVP 10 mg Q6H PRN Administration Nausea &/or vomiting Morphine Sulfate 2 - 4 mg 03/07/18 14:20 Morphine Sulfate Inj IVP Q5M PRN Angina Nitroglycerin 0.4 mg 03/07/18 14:20 Nitrostat SL Q5M PRN Angina Nystatin 5 ml 03/16/18 17:00 03/20/18 08:50 Mycostatin PO 5 ml QID WILLAM Administration Nystatin 1 applic 03/19/18 16:59 Mycostatin TP BID PRN Ondansetron HCl 4 mg 03/07/18 14:20 03/17/18 23:37 Zofran IVP 4 mg Q6H PRN Administration Nausea &/or vomiting Polyethylene Glycol 17 gm 03/16/18 09:00 03/20/18 08:51 Miralax PO 17 gm DAILY WILLAM Administration Promethazine HCl 12.5 - 25 mg 03/07/18 14:20 Phenergan Inj IVP Q6HR PRN Nausea &/or vomiting Ranitidine HCl 150 mg 03/07/18 18:00 03/19/18 17:51 Zantac PO 150 mg 1800 WILLAM Administration Sodium Chloride 10 - 80 ml 03/09/18 14:34 03/20/18 08:52 Iv Flush IV 40 ml PRN PRN Administration Flushing Sodium Chloride 10 ml 03/10/18 20:02 Iv Flush IV PRN PRN Flushing Sodium Chloride 500 ml 03/20/18 08:43 03/20/18 08:49 Normal Saline IV 500 ml PRN PRN Administration Tramadol HCl 50 mg 03/06/18 18:28 03/20/18 08:50 Ultram PO 50 mg Q6H PRN Administration Pain Discontinued Medications Generic Name Dose Route Start Last Admin Trade Name Freq PRN Reason Stop Dose Admin Acetaminophen 650 mg 03/06/18 18:27 Tylenol PO Q5H PRN Pain Adenosine 6 mg 03/06/18 16:02 03/06/18 16:02 Adenocard IVP 03/06/18 16:03 6 mg O ONE Administration Adenosine 12 mg 03/06/18 16:06 03/06/18 16:06 Adenocard IVP 03/06/18 16:07 12 mg O ONE Administration Atorvastatin Calcium 20 mg 03/07/18 18:00 03/10/18 21:34 Lipitor PO Not Given 1800 WILLAM Atorvastatin Calcium 20 mg 03/08/18 21:00 03/15/18 20:02 Lipitor PO 20 mg HS WILLAM Administration Budesonide/Formoterol Fumarate 2 puff 03/07/18 21:00 Symbicort Inhaler ORAL INH BID WILLAM Bumetanide 1 mg 03/06/18 16:09 03/06/18 18:08 Bumex 1 Mg/4 Ml Inj. IVP 03/06/18 16:10 1 mg O ONE Administration Bumetanide 1 mg 03/06/18 16:10 03/06/18 18:09 Bumex 1 Mg/4 Ml Inj. IVP 03/06/18 16:11 1 mg O ONE Administration Bumetanide 1 mg 03/06/18 16:11 03/06/18 16:11 Bumex 1 Mg/4 Ml Inj. IVP 03/06/18 16:12 1 mg O ONE Administration Bumetanide 2 mg 03/07/18 21:00 03/10/18 21:33 Bumex 1 Mg/4 Ml Inj. IVP Not Given QID WILLAM Bumetanide 2 mg 03/08/18 15:00 03/09/18 04:06 Bumex 1 Mg/4 Ml Inj. IVP Not Given Q6HR WILLAM Bumetanide 1 mg 03/09/18 09:00 03/10/18 08:16 Bumex 1 Mg/4 Ml Inj. IVP 1 mg BID WILLAM Administration Bumetanide 1 mg 03/09/18 14:33 03/09/18 15:41 Bumex 1 Mg/4 Ml Inj. IVP 03/09/18 14:34 1 mg O ONE Administration Bumetanide 2 mg 03/10/18 16:07 03/10/18 20:15 Bumex 1 Mg Tab PO 2 mg [id number] WILLAM Administration Carvedilol 3.125 mg 03/07/18 10:53 03/10/18 07:52 Coreg PO 3.125 mg BIDWM WILLAM Administration Carvedilol 6.25 mg 03/10/18 16:37 03/13/18 09:29 Coreg PO 6.25 mg BIDWM WILLAM Administration Carvedilol 3.125 mg 03/14/18 09:00 03/17/18 08:28 Coreg PO 3.125 mg BIDWM WILLAM Administration Carvedilol 3.125 mg 03/18/18 08:17 03/19/18 09:10 Coreg PO 3.125 mg BIDWM WILLAM Administration Device 1 each 03/07/18 12:57 03/07/18 12:59 [facility] 03/07/18 12:58 1 each O ONE Administration Furosemide 40 mg 03/16/18 18:23 03/16/18 18:25 Lasix 40 Mg/4 Ml IVP 03/16/18 18:24 40 mg O ONE Administration Furosemide 40 mg 03/16/18 19:04 03/16/18 19:05 Lasix 40 Mg/4 Ml IVP 03/16/18 19:05 40 mg O ONE Administration Heparin Sodium (Beef Lung) 6,000 unit 03/06/18 17:04 03/06/18 17:22 Heparin Bolus IVP 03/06/18 17:05 6,000 unit O ONE Administration Heparin Sodium (Beef Lung) 5,000 unit 03/06/18 22:04 03/06/18 22:10 Heparin Bolus IVP 03/06/18 22:05 5,000 unit O ONE Administration Heparin Sodium (Beef Lung) 2,000 unit 03/07/18 09:00 03/07/18 09:21 Heparin Bolus IVP 03/07/18 09:01 2,000 unit O ONE Administration Heparin Sodium (Porcine) 1 each 03/06/18 16:17 Pharmacy Consult - Heparin 03/06/18 16:18 ONE TIME ONE Heparin Sodium (Porcine) 5,000 units 03/09/18 09:00 03/09/18 21:31 Heparin Sq SQ 5,000 units Q12HR WILLAM Administration Heparin Sodium (Porcine) 5,000 units 03/11/18 09:00 03/14/18 09:26 Heparin Sq SQ 5,000 units Q12HR WILLAM Administration Bumetanide 25 mg/ IV Solution 100 mls @ 2 mls/hr 03/06/18 16:15 03/07/18 18: 19 IV Not Given Q24H [facility] Heparin Sodium (Porcine) 20,000 unit in 500 mls @ 30 mls/hr 03/06/18 17:05 14:00 Heparin Drip IV Infused .[id number] WILLAM Titration Protocol 1,200 UNIT/HR Amiodarone HCl 900 mg/ Sodium 500 mls @ 16.66 mls/hr 03/07/18 00:31 03/08/18 12:41 Chloride IV Not Given .Q24H WILLAM 0.5 MG/MIN Amiodarone HCl 450 mg/ Sodium 250 mls @ 33.33 mls/hr 03/06/18 18:30 03/07/18 02:11 Chloride IV 03/07/18 00:30 Infused .[id number] WILLAM Infusion 1 MG/MIN Amiodarone HCl 150 mg/ Sodium 103 mls @ 618 mls/hr 03/06/18 18:20 03/06/18 19 :59 Chloride IV 03/06/18 18:29 Infused O ONE Infusion Heparin Sodium (Porcine) 20,000 unit in 500 mls @ 35 mls/hr 03/07/18 09:00 09:19 Heparin Drip IV Not Given .[id number] WILLAM Protocol 1,400 UNIT/HR Sodium Chloride 1,000 mls @ 50 mls/hr 03/07/18 14:30 03/08/18 06:17 Normal Saline IV 03/08/18 00:30 50 mls/hr .Q20H WILLAM Infusion Cefazolin Sodium 1 g/ Sodium 100 mls @ 200 mls/hr 03/11/18 01:00 03/11/18 09: 37 Chloride IV 03/11/18 09:29 Infused Q8HR WILLAM Infusion Dopamine HCl/Dextrose 400 mg in 250 mls @ 7.073 mls/hr 03/12/18 09:46 Dopamine Drip IV .Q24H PRN Protocol 2 MCG/KG/MIN Sodium Chloride 1,000 mls @ 75 mls/hr 03/12/18 10:00 03/13/18 00:44 Normal Saline IV 03/12/18 23:19 Infused .[id number] WILLAM Infusion Dopamine HCl/Dextrose 400 mg in 250 mls @ 7.073 mls/hr 03/12/18 11:15 16:06 Dopamine Drip IV Not Given .Q24H WILLAM Protocol 2 MCG/KG/MIN Vancomycin HCl 1,000 mg/ 250 mls @ 250 mls/hr 03/14/18 08:05 03/14/18 11:38 Sodium Chloride IV 03/14/18 08:06 Infused O ONE Infusion Sodium Chloride 1,000 mls @ 125 mls/hr 03/14/18 08:15 03/14/18 18:24 Normal Saline IV 03/14/18 16:14 Infused .Q8H WILLAM Infusion Milrinone Lactate/Dextrose 20 mg in 100 mls @ 11.295 mls/hr 03/14/18 15:06 03:00 Milrinone Drip Premix IV Infused .[id number] WILLAM Infusion Protocol 0.375 MCG/KG/MIN Sodium Chloride 1,000 mls @ 75 mls/hr 03/14/18 15:06 03/14/18 15:40 Normal Saline IV 75 mls/hr .[id number] WILLAM Administration Dopamine HCl/Dextrose 400 mg in 250 mls @ 7.665 mls/hr 03/16/18 15:36 17:50 Dopamine Drip IV Infused .Q24H PRN Titration Protocol 2 MCG/KG/MIN Losartan Potassium 25 mg 03/07/18 11:00 03/08/18 12:50 Cozaar PO 25 mg DAILY WILLAM Administration Magnesium Hydroxide 30 ml 03/07/18 12:50 Mom PO DAILY PRN Constipation Methylprednisolone Sodium Succinate 125 mg 03/16/18 18:29 03/16/18 18:15 Solu-Medrol IVP 03/16/18 18:30 125 mg O ONE Administration Minocycline HCl 100 mg 03/11/18 21:00 03/18/18 08:01 Minocin PO 03/18/18 20:59 100 mg BID WILLAM Administration Mirabegron 50 mg 03/07/18 09:00 03/08/18 08:38 Myrbetriq PO 50 mg DAILY WILLAM Administration Morphine Sulfate 2 - 4 mg 03/07/18 14:20 Morphine Sulfate Inj IVP 03/08/18 14:19 Q2H PRN Pain Ondansetron HCl 4 mg 03/06/18 18:28 Zofran IVP Q6H PRN Nausea &/or vomiting Pharmacy Consult 1 each 03/11/18 15:34 Pharmacy Consult - Fall Risk [facility] 03/11/18 15:35 ONE TIME ONE Potassium Chloride 20 meq 03/08/18 21:23 03/08/18 22:08 K-Dur 20 Meq Tablet PO 03/08/18 21:24 20 meq O ONE Administration Potassium Chloride 20 meq 03/09/18 14:33 03/11/18 08:59 K-Dur 20 Meq Tablet PO 20 meq WB WILLAM Administration Potassium Chloride 40 meq 03/16/18 08:40 03/16/18 09:03 K-Dur 20 Meq Tablet PO 03/16/18 08:41 40 meq O ONE Administration Tamsulosin HCl 0.4 mg 03/07/18 18:00 03/08/18 19:04 Flomax PO 0.4 mg 1800 WILLAM Administration - Constitutional no acute distress, well nourished, cooperative - Routine HEENT Exam Head: Present: normocephalic ENT: Present: mucous membranes dry - Routine Neck Exam Absent: JVD, carotid bruit - Routine Chest/Breast/Axilla Exam Chest wall: Present: tenderness, pacemaker - Routine Respiratory Exam Present: diminished air movement. Absent: dyspnea - Routine Cardiovascular Exam Present: no murmur, irregular rhythm - Routine Abdominal Exam Present: soft, non tender - Routine Extremities Exam Present: edema - Routine Skin Exam Present: intact, dry, warm - Routine Neurological Exam Present: alert, oriented X3 - Routine Psychiatric Exam Present: normal affect, normal thought process - Urinary Catheter Management Urethral Cath placed during this visit: yes Urethral indwelling: Yes Insertion date: 03/06/18 Insertion time: 16:15 Results 03/21/18 04:45 03/21/18 04:45 Cardiac Enzymes 03/20/18 Range/Units 04:32 AST 72 H (17-59) U/L CBC 03/20/18 Range/Units 04:32 WBC 19.0 H (4.5-11.0) T/MM3 RBC 4.41 L (4.50-5.90) M/MM3 Hgb 14.3 (13.5-17.5) GM/DL Hct 44.3 (41-53) % Plt Count 148 D (130-400) T/MM3 Neut # (Auto) Not performed Lymph # (Auto) Not performed [place] # (Auto) Not performed Eos # (Auto) Not performed Baso # (Auto) Not performed Comprehensive Metabolic Panel 03/20/18 Range/Units 04:32 Sodium 139 (134-144) MEQ/L Potassium 5.0 (3.6-5) MEQ/L Chloride 98 (98-107) MEQ/L Carbon Dioxide 26 (22-30) MEQ/L BUN 78.0 H* (9-20) MG/DL Creatinine 2.0 H D (0.8-1.5) mg/dL Glucose 110 (75-110) MG/DL Calcium 8.6 (8.4-10.2) MG/DL AST 72 H (17-59) U/L ALT 187 H (1-50) U/L Alkaline Phosphatase 90 (38-126) U/L Total Protein 6.7 (6.3-8.2) g/dL Albumin 3.7 (3.5-5.0) g/dL Intake and Output 03/19/18 03/20/18 03/20/18 22:59 06:59 14:59 Intake Total 200 / 200 100 / 100 620 / 620 Output Total 475 / 475 550 / 550 Balance -275 / -275 -450 / -450 620 / 620 Intake: IV 100 / 100 100 / 100 100 / 100 Piperacillin/Tazobactam 2.25 gm 100 / 100 100 / 100 100 / 100 In Ns 100 ml @ 200 mls/hr IV Q8H [facility] Rx#:[id number] Oral 100 / 100 520 / 520 Output: Urine Amount (Catheter) 475 / 475 550 / 550 Other: Urine Appearance Cloudy Cloudy Sediment Sediment Urine Color Dark Dark Size of Bowel Movement Large # Incontinent Voids 1 # Incontinent Bowel Movements 1 Weight 225 lb 15.581 oz Patient Weight 03/21/18 06:59 Weight 225 lb 15.581 oz Assessment and Plan - Assessment and Plan (1) Cardiomyopathy Status: Chronic (2) HTN (hypertension) Status: Chronic (3) CAD (coronary artery disease) Status: Chronic (4) CKD (chronic kidney disease) Status: Chronic (5) Hyperlipidemia Status: Chronic (6) Acute dyspnea Status: Acute (7) Acute systolic CHF (congestive heart failure) Status: Acute (8) SVT (supraventricular tachycardia) Status: Acute (9) NSTEMI (non-ST elevated myocardial infarction) Status: Acute (10) Acute renal failure superimposed on chronic kidney disease Status: Acute - Assessment and Plan 03/12/2018 NSTEMI (non-ST elevated myocardial infarction) - Troponin 1) 0.239, 2) 0.236, 3)0.320 4.)0.412 - WBC trending up VT/ SVT (supraventricular tachycardia) - Continue amiodarone 200 mg PO BID - EKG in am - Bi-V AICD in place - EKG: Sinus Tachycardia, no acute changes - Monitor on tele Acute dyspnea - Presented from [facility] on 4l/NC - RCAT, on 4L per NC this am - CXR no pneumothorax. Mild pulmonary vascular congestion or edema. Acute systolic CHF (congestive heart failure) - Echo: EF 10-15%, severe MR/TR - CXR: mild pulmonary vascular congestion or edema - Cr up to 3.5, BUN 91 - BNP 9080 - Will continue to hold diuresis - Pt admits heavy ETOH consumption 6-12 beers daily for many years prior to one year ago. - Will initiate NS 75 mL/hr x 10 hours - Start dopamine gtt to help perfuse kidneys Cardiomyopathy - Echo: EF 10-15%, severe MR/ TR HTN (hypertension) - Continue Coreg 6.25 mg BID CAD (coronary artery disease) - Heart cath on 03/07/18 revealed coronaries with nonobstructive disease - Continue ASA, BB and statin - Continue Plavix d/t to stent in RLE CKD (chronic kidney disease) - BUN increased to 91/SCr 3.5 (base line 1.6) - Will continue to hold diuresis - Potassium 5.2 - Renal U/S indicated no hydronephrosis or renal mass Hyperlipidemia - Continue Statin Ppx: SQ Heparin PO Ranitidine 03/13/2018 NSTEMI (non-ST elevated myocardial infarction) - Troponin 1) 0.239, 2) 0.236, 3)0.320 4.)0.412 - Likely demand 2/2 respiratory failure/pulmonary edema VT/ SVT (supraventricular tachycardia) - Continue amiodarone 200 mg PO BID - EKG in am - Bi-V AICD in place - EKG: Sinus Tachycardia with LBBB, left axis deviation and supraventricular premature complexes - Monitor on tele Acute dyspnea - Presented from [facility] on 4l/NC - RCAT, continues to need bi-pap intermittently - CXR no pneumothorax. Mild pulmonary vascular congestion or edema. Acute systolic CHF (congestive heart failure) - Echo: EF 10-15%, severe MR/TR - CXR: mild pulmonary vascular congestion or edema - Cr 3.5 yesterday/3.1 today, BUN 91 yesterday/100 today - BNP 9080 - Will continue to hold diuresis - Pt admits heavy ETOH consumption 6-12 beers daily for many years prior to one year ago. - Will initiate NS 75 mL/hr x 10 hours - Will d/c dopamine gtt - Flores to monitor I&O - + FB today - Unable to start REJI/ARB d/t hypotension/CKD Cardiomyopathy - Echo: EF 10-15%, severe MR/ TR - Continue medical therapy - Bi-V AICD in place HTN (hypertension) - Continue Coreg 6.25 mg BID CAD (coronary artery disease) - Heart cath on 03/07/18 revealed coronaries with nonobstructive disease - Continue ASA, BB and statin - Continue Plavix d/t to stent in RLE Acute Renal Failure - BUN 100, Cr 3.1 - Renal U/S indicated no hydronephrosis or renal mass CKD (chronic kidney disease) - Baseline Cr 1.6) - Will continue to hold diuresis - Potassium 4.2 - Mg 2.7 Hyperlipidemia - Continue Statin Ppx: SQ Heparin PO Ranitidine 03/14/18 Dyspnea: CXR: Resolved pulmonary edema. Stable right lower lobe airspace disease. CKD: BUN 118/SCr 3.8 today Transfer to CCU for Milrinone 0.375mcg/kg drip NS at 75mL X 1 liter 03/15/2018 [facility]: CXR: increased pulmonary edema. Cr and BUN decreased. Cont milrinone gtt 0.375. - lungs sounds clear and edema not bad in right leg. - s/p BiV/ICD - incision looks good. he is not pacing. A/CKD: recent Cr 3.8 -> 3.3 today and BUN up to 121 today. no diuretic. 03/16/2018 [facility]: CXR: increased pulmonary edema. Cr and BUN decreased. Cont milrinone gtt 0.375. - lungs sounds clear and edema not bad in right lower leg. - U/O ave 40-60 this morning. U/O 30 ml/hr this afternoon. - add dopamine 2 mcg/kg/min to increase perfusion to kidneys and improve U/ O. - s/p BiV/ICD - incision looks good. he is not paced - Coreg held the last 2 mornings due to low BP. A/CKD: recent Cr 3.8 -> 3.3 -> 2.8 today and BUN down to 115 today. no diuretic. NSTEMI T2 s/p HC: no significant CAD. Cont ASa and Plavix. Thrush: add Nystatin swish and swallow. 03/17/18 [facility]: CXR: Improved aeration with decreasing interstitial/opacities bilateral. Mild residual interstitial opacities overlying the lower lung zones. - Hold Coreg due to low B/P - BUN/ Cr 103/2.5 today, wean Milrinone over next 8 hours - Heparin 5000 units q8h SQ for DVT 03/18/18 [facility]: CXR: Impression: Slightly improved aeration of the right lung base. - Resume Coreg 3.125mg BID - BUN/ SCr 86/2.0, BNP 7390 - Okay to transfer to Surgical, needs room close to Nurses desk for close observation 03/19/18 Increase Coreg to 6.25mg BID - Continue Amiodarone at this time, LFTS trending down - Continue to monitor renal BUN/ SCr 83/2.3 03/20/18 Increase Coreg to 12.5mg BID, as unable to use Reji or Arb due to CKD - LFTs continues to trend down. - Pacemaker interrogation shows atrial fibrillation - Stop Heparin, start Eliquis 5mg po BID for stroke prevention Hospital Course Summary Disclaimer: The visit summary below is not to be considered part of the above Progress Note. Hospital Course: Impression Leukocytosis Tachycardia Elevated LFTs Cardiomyopathy- with acute systolic failure Non-STEMI V. tach hyperlipidemia Hypertension Coronary artery disease Schizophrenia Depression History of CVA Plan Continued cardiology care as per Dr. Stahl, planning for pacemaker/ defibrillator placement later today. Patient doesn't meet nursing sepsis criteria. Given tachycardia, tachypnea and leukocytosis. All 3 of these may be multifactorial including severe cardiomyopathy and respiratory distress. Will obtain UA, Lactate and Blood cultures, Chest Xray to rule out infectious etiology Given respiratory distress will consult pulmonary, Dr Gibbs for evaluation and recommendations Monitor renal function- known CKD- Bobbin Winder 2.2 (Baseline Bobbin Winder 1.6) Continues on scheduled Bumex for diuresis- Monitor renal function Appreciate medical consultation. Will continue to follow patient. At time if discharge medical care is to return to PCP in Dr Hilda Self Case discussed with attending, Dr Serna <Jose C Stahl - Last Filed: 03/27/18 14:00> Exam Vital signs: Temperature 97.6 F 03/21/18 12:18 Pulse Rate 91 03/21/18 12:18 Respiratory Rate 18 03/21/18 12:18 Blood Pressure 134/72 03/21/18 12:18 Pulse Oximetry 94 03/21/18 12:18 Inpatient Medications: Discontinued Medications Generic Name Dose Route Start Last Admin Trade Name Freq PRN Reason Stop Dose Admin Acetaminophen 650 mg 03/06/18 18:27 Tylenol PO Q5H PRN Pain Acetaminophen 325 - 650 mg 03/07/18 14:20 03/21/18 00:26 Tylenol PO 650 mg Q5H PRN Administration Pain Hydrocodone Bitart/Acetaminophen 1 - 2 tab 03/07/18 14:20 03/21/18 11:54 [place] 5/325 PO 2 tab Q5H PRN Administration Pain Adenosine 6 mg 03/06/18 16:02 03/06/18 16:02 Adenocard IVP 03/06/18 16:03 6 mg O ONE Administration Adenosine 12 mg 03/06/18 16:06 03/06/18 16:06 Adenocard IVP 03/06/18 16:07 12 mg O ONE Administration Al Hydroxide/Mg Hydroxide 30 ml 03/07/18 14:20 Maalox Plus PO Q3H PRN Indigestion Albuterol Sulfate 2.5 mg 03/12/18 02:04 03/12/18 02:06 Proventil Neb (0.083%) AEROSOL 2.5 mg Q2HR PRN Administration Albuterol/Ipratropium 3 ml 03/10/18 11:00 03/21/18 10:36 Duoneb AEROSOL 3 ml RTQID WILLAM Administration Amiodarone HCl 200 mg 03/08/18 21:25 03/21/18 08:55 Pacerone PO 200 mg BID WILLAM Administration Amoxicillin/Clavulanate Potassium 875 mg 03/20/18 21:00 03/21/18 08:54 Augmentin 875/125 PO 875 mg Q12HR WILLAM Administration Apixaban 5 mg 03/20/18 21:00 03/21/18 08:55 Eliquis PO 5 mg BID WILLAM Administration Aspirin 81 mg 03/07/18 09:00 03/21/18 08:55 Ecotrin PO 81 mg DAILY WILLAM Administration Atorvastatin Calcium 20 mg 03/07/18 18:00 03/10/18 21:34 Lipitor PO Not Given 1800 WILLAM Atorvastatin Calcium 20 mg 03/08/18 21:00 03/15/18 20:02 Lipitor PO 20 mg HS WILLAM Administration Atropine Sulfate 0.5 mg 03/07/18 14:20 Atropine IVP Q5M PRN Bradycardia Bisacodyl 5 - 10 mg 03/07/18 14:20 03/15/18 19:08 Dulcolax PO 5 mg DAILY PRN Administration Constipation Bisacodyl 10 mg 03/07/18 14:20 Dulcolax RECTALLY DAILY PRN Constipation Budesonide/Formoterol Fumarate 2 puff 03/07/18 21:00 Symbicort Inhaler ORAL INH BID WILLAM Budesonide/Formoterol Fumarate 2 puff 03/07/18 12:39 03/21/18 09:44 Symbicort Inhaler ORAL INH 2 puff BID WILLAM Administration Bumetanide 1 mg 03/06/18 16:09 03/06/18 18:08 Bumex 1 Mg/4 Ml Inj. IVP 03/06/18 16:10 1 mg O ONE Administration Bumetanide 1 mg 03/06/18 16:10 03/06/18 18:09 Bumex 1 Mg/4 Ml Inj. IVP 03/06/18 16:11 1 mg O ONE Administration Bumetanide 1 mg 03/06/18 16:11 03/06/18 16:11 Bumex 1 Mg/4 Ml Inj. IVP 03/06/18 16:12 1 mg O ONE Administration Bumetanide 2 mg 03/07/18 21:00 03/10/18 21:33 Bumex 1 Mg/4 Ml Inj. IVP Not Given QID WILLAM Bumetanide 2 mg 03/08/18 15:00 03/09/18 04:06 Bumex 1 Mg/4 Ml Inj. IVP Not Given Q6HR WILLAM Bumetanide 1 mg 03/09/18 09:00 03/10/18 08:16 Bumex 1 Mg/4 Ml Inj. IVP 1 mg BID WILLAM Administration Bumetanide 1 mg 03/09/18 14:33 03/09/18 15:41 Bumex 1 Mg/4 Ml Inj. IVP 03/09/18 14:34 1 mg O ONE Administration Bumetanide 2 mg 03/10/18 16:07 03/10/18 20:15 Bumex 1 Mg Tab PO 2 mg [id number] WILLAM Administration Carvedilol 3.125 mg 03/07/18 10:53 03/10/18 07:52 Coreg PO 3.125 mg BIDWM WILLAM Administration Carvedilol 6.25 mg 03/10/18 16:37 03/13/18 09:29 Coreg PO 6.25 mg BIDWM WILLAM Administration Carvedilol 3.125 mg 03/14/18 09:00 03/17/18 08:28 Coreg PO 3.125 mg BIDWM WILLAM Administration Carvedilol 3.125 mg 03/18/18 08:17 03/19/18 09:10 Coreg PO 3.125 mg BIDWM WILLAM Administration Carvedilol 6.25 mg 03/19/18 17:30 03/20/18 08:49 Coreg PO 6.25 mg BIDWM WILLAM Administration Carvedilol 12.5 mg 03/20/18 17:30 03/21/18 09:00 Coreg PO 12.5 mg BIDWM WILLAM Administration Clopidogrel Bisulfate 75 mg 03/07/18 09:00 03/21/18 08:55 Plavix PO 75 mg DAILY [facility] Administration Device 1 each 03/07/18 12:57 03/07/18 12:59 Optichamber MC 03/07/18 12:58 1 each O ONE Administration Docusate Sodium 100 mg 03/07/18 21:00 03/21/18 08:55 Colace PO 100 mg BID WILLAM Administration Docusate Sodium 100 mg 03/07/18 12:50 Colace PO BID PRN Furosemide 40 mg 03/16/18 18:23 03/16/18 18:25 Lasix 40 Mg/4 Ml IVP 03/16/18 18:24 40 mg O ONE Administration Furosemide 40 mg 03/16/18 19:04 03/16/18 19:05 Lasix 40 Mg/4 Ml IVP 03/16/18 19:05 40 mg O ONE Administration Heparin Sodium (Beef Lung) 6,000 unit 03/06/18 17:04 03/06/18 17:22 Heparin Bolus IVP 03/06/18 17:05 6,000 unit O ONE Administration Heparin Sodium (Beef Lung) 5,000 unit 03/06/18 22:04 03/06/18 22:10 Heparin Bolus IVP 03/06/18 22:05 5,000 unit O ONE Administration Heparin Sodium (Beef Lung) 2,000 unit 03/07/18 09:00 03/07/18 09:21 Heparin Bolus IVP 03/07/18 09:01 2,000 unit O ONE Administration Heparin Sodium (Porcine) 1 each 03/06/18 16:17 Pharmacy Consult - Heparin 03/06/18 16:18 ONE TIME ONE Heparin Sodium (Porcine) 5,000 units 03/09/18 09:00 03/09/18 21:31 Heparin Sq SQ 5,000 units Q12HR WILLAM Administration Heparin Sodium (Porcine) 5,000 units 03/11/18 09:00 03/14/18 09:26 Heparin Sq SQ 5,000 units Q12HR WILLAM Administration Heparin Sodium (Porcine) 5,000 units 03/17/18 17:00 03/20/18 08:50 Heparin Sq SQ 5,000 units Q8HR WILLAM Administration Bumetanide 25 mg/ IV Solution 100 mls @ 2 mls/hr 03/06/18 16:15 03/07/18 18: 19 IV Not Given Q24H WILLAM Heparin Sodium (Porcine) 20,000 unit in 500 mls @ 30 mls/hr 03/06/18 17:05 14:00 Heparin Drip IV Infused .[id number] WILLAM Titration Protocol 1,200 UNIT/HR Amiodarone HCl 900 mg/ Sodium 500 mls @ 16.66 mls/hr 03/07/18 00:31 03/08/18 12:41 Chloride IV Not Given .Q24H WILLAM 0.5 MG/MIN Amiodarone HCl 450 mg/ Sodium 250 mls @ 33.33 mls/hr 03/06/18 18:30 03/07/18 02:11 Chloride IV 03/07/18 00:30 Infused .[id number] WILLAM Infusion 1 MG/MIN Amiodarone HCl 150 mg/ Sodium 103 mls @ 618 mls/hr 03/06/18 18:20 03/06/18 19 :59 Chloride IV 03/06/18 18:29 Infused O ONE Infusion Heparin Sodium (Porcine) 20,000 unit in 500 mls @ 35 mls/hr 03/07/18 09:00 09:19 Heparin Drip IV Not Given .[id number] WILLAM Protocol 1,400 UNIT/HR Sodium Chloride 1,000 mls @ 50 mls/hr 03/07/18 14:30 03/08/18 06:17 Normal Saline IV 03/08/18 00:30 50 mls/hr .Q20H WILLAM Infusion Cefazolin Sodium 1 g/ Sodium 100 mls @ 200 mls/hr 03/11/18 01:00 03/11/18 09: 37 Chloride IV 03/11/18 09:29 Infused Q8HR WILLAM Infusion Dopamine HCl/Dextrose 400 mg in 250 mls @ 7.073 mls/hr 03/12/18 09:46 Dopamine Drip IV .Q24H PRN Protocol 2 MCG/KG/MIN Sodium Chloride 1,000 mls @ 75 mls/hr 03/12/18 10:00 03/13/18 00:44 Normal Saline IV 03/12/18 23:19 Infused .[id number] WILLAM Infusion Dopamine HCl/Dextrose 400 mg in 250 mls @ 7.073 mls/hr 03/12/18 11:15 16:06 Dopamine Drip IV Not Given .Q24H WILLAM Protocol 2 MCG/KG/MIN Vancomycin HCl 1,000 mg/ 250 mls @ 250 mls/hr 03/14/18 08:05 03/14/18 11:38 Sodium Chloride IV 03/14/18 08:06 Infused O ONE Infusion Piperacillin Sod/Tazobactam 100 mls @ 200 mls/hr 03/14/18 08:15 03/20/18 17: 57 Sod 2.25 gm/ Sodium Chloride IV Infused Q8H WILLAM Infusion Sodium Chloride 1,000 mls @ 125 mls/hr 03/14/18 08:15 03/14/18 18:24 Normal Saline IV 03/14/18 16:14 Infused .Q8H WILLAM Infusion Milrinone Lactate/Dextrose 20 mg in 100 mls @ 11.295 mls/hr 03/14/18 15:06 03:00 Milrinone Drip Premix IV Infused .Q8H52M WILLAM Infusion Protocol 0.375 MCG/KG/MIN Sodium Chloride 1,000 mls @ 75 mls/hr 03/14/18 15:06 03/14/18 15:40 Normal Saline IV 75 mls/hr .[id number] WILLAM Administration Dopamine HCl/Dextrose 400 mg in 250 mls @ 7.665 mls/hr 03/16/18 15:36 17:50 Dopamine Drip IV Infused .Q24H PRN Titration Protocol 2 MCG/KG/MIN Levothyroxine Sodium 250 mcg 03/08/18 06:30 03/16/18 06:14 Synthroid PO 250 mcg SUSA@0630 WILLAM Administration Levothyroxine Sodium 125 mcg 03/10/18 06:30 03/21/18 05:59 Synthroid PO 125 mcg MOTUWETHFR@0630 WILLAM Administration Lorazepam 0.5 - 1 mg 03/07/18 14:20 03/17/18 22:37 Ativan PO 0.5 mg Q4H PRN Administration Anxiety Lorazepam 0.5 - 1 mg 03/07/18 14:20 03/17/18 02:43 Ativan Inj IVP 0.5 mg Q4H PRN Administration Anxiety Losartan Potassium 25 mg 03/07/18 11:00 03/08/18 12:50 Cozaar PO 25 mg DAILY WILLAM Administration Magnesium Hydroxide 30 ml 03/07/18 12:50 Mom PO DAILY PRN Constipation Magnesium Hydroxide 30 ml 03/07/18 14:20 03/15/18 20:02 Mom PO 30 ml DAILY PRN Administration Constipation Methylprednisolone Sodium Succinate 125 mg 03/16/18 18:29 03/16/18 18:15 Solu-Medrol IVP 03/16/18 18:30 125 mg O ONE Administration Metoclopramide HCl 5 - 10 mg 03/07/18 14:20 03/13/18 01:47 Reglan IVP 10 mg Q6H PRN Administration Nausea &/or vomiting Minocycline HCl 100 mg 03/11/18 21:00 03/18/18 08:01 Minocin PO 03/18/18 20:59 100 mg BID WILLAM Administration Mirabegron 50 mg 03/07/18 09:00 03/08/18 08:38 Myrbetriq PO 50 mg DAILY WILLAM Administration Morphine Sulfate 2 - 4 mg 03/07/18 14:20 Morphine Sulfate Inj IVP 03/08/18 14:19 Q2H PRN Pain Morphine Sulfate 2 - 4 mg 03/07/18 14:20 Morphine Sulfate Inj IVP Q5M PRN Angina Neomycin/Polymyxin/Bacitracin 1 applic 03/21/18 10:53 03/21/18 11:03 Neosporin TP 03/21/18 10:54 1 applic O ONE Administration Nitroglycerin 0.4 mg 03/07/18 14:20 Nitrostat SL Q5M PRN Angina Nystatin 5 ml 03/16/18 17:00 03/21/18 09:56 Mycostatin PO 5 ml QID WILLAM Administration Nystatin 1 applic 03/19/18 16:59 Mycostatin TP BID PRN Ondansetron HCl 4 mg 03/06/18 18:28 Zofran IVP Q6H PRN Nausea &/or vomiting Ondansetron HCl 4 mg 03/07/18 14:20 03/21/18 05:59 Zofran IVP 4 mg Q6H PRN Administration Nausea &/or vomiting Pharmacy Consult 1 each 03/11/18 15:34 Pharmacy Consult - Fall Risk 03/11/18 15:35 ONE TIME ONE Polyethylene Glycol 17 gm 03/16/18 09:00 03/21/18 09:00 Miralax PO 17 gm DAILY WILLAM Administration Potassium Chloride 20 meq 03/08/18 21:23 03/08/18 22:08 K-Dur 20 Meq Tablet PO 03/08/18 21:24 20 meq O ONE Administration Potassium Chloride 20 meq 03/09/18 14:33 03/11/18 08:59 K-Dur 20 Meq Tablet PO 20 meq WB WILLAM Administration Potassium Chloride 40 meq 03/16/18 08:40 03/16/18 09:03 K-Dur 20 Meq Tablet PO 03/16/18 08:41 40 meq O ONE Administration Promethazine HCl 12.5 - 25 mg 03/07/18 14:20 Phenergan Inj IVP Q6HR PRN Nausea &/or vomiting Ranitidine HCl 150 mg 03/07/18 18:00 03/20/18 17:41 Zantac PO 150 mg 1800 WILLAM Administration Sodium Chloride 10 - 80 ml 03/09/18 14:34 03/20/18 16:59 Iv Flush IV 20 ml PRN PRN Administration Flushing Sodium Chloride 10 ml 03/10/18 20:02 Iv Flush IV PRN PRN Flushing Sodium Chloride 500 ml 03/20/18 08:43 03/20/18 08:49 Normal Saline IV 500 ml PRN PRN Administration Tamsulosin HCl 0.4 mg 03/07/18 18:00 03/08/18 19:04 Flomax PO 0.4 mg 1800 WILLAM Administration Tramadol HCl 50 mg 03/06/18 18:28 03/20/18 23:44 Ultram PO 50 mg Q6H PRN Administration Pain - Urinary Catheter Management Urethral Cath placed during this visit: no Results 03/21/18 04:45 03/21/18 04:45 Assessment and Plan - Assessment and Plan (1) Cardiomyopathy Status: Chronic (2) HTN (hypertension) Status: Chronic (3) CAD (coronary artery disease) Status: Chronic (4) CKD (chronic kidney disease) Status: Chronic (5) Hyperlipidemia Status: Chronic (6) Acute dyspnea Status: Acute (7) Acute systolic CHF (congestive heart failure) Status: Acute (8) SVT (supraventricular tachycardia) Status: Acute (9) NSTEMI (non-ST elevated myocardial infarction) Status: Acute (10) Acute renal failure superimposed on chronic kidney disease Status: Acute - Attestation Attestation Narrative: 03/27/18 14:00 Recommendation After examining the patient I agree with the above assessment. I am involved in the formulation of the patient's plan of care. Hospital Course Summary Disclaimer: The visit summary below is not to be considered part of the above Progress Note.
[2018-03-20] MEDS: RANITIDINE 150 MG TABLET PO SCH (17:41)
[2018-03-20] MEDS: CARVEDILOL 12.5 MG TABLET PO SCH (17:41)
--- NOTE | 2018-03-20 18:14 | Progress Note ---
- Date 03/20/18 Subjective: F/U: Acute resp failure, pulm edema, pneumonia Doing better today. More awake and interactive. Wants to go home (saying home, home). Breathing okay-denies discomfort with breathing. Eating well. No ab pain. Not had stool, but did have several yesterday. Denies ab feeling bloated ( says it's 'fat'). Objective Vital signs: Temperature 97.9 F 03/20/18 07:40 Pulse Rate 68 03/20/18 16:00 Respiratory Rate 12 03/20/18 16:58 Blood Pressure 149/84 H 03/20/18 07:40 Pulse Oximetry 96 03/20/18 07:44 Height/Weight/BMI: Height 1.73 m Weight 102.5 kg Body Mass Index 35.0 - Constitutional Present: well nourished, well developed, obese, cooperative - Routine HEENT Exam Head: Present: normocephalic, atraumatic Eye: Present: EOMI, PERRL ENT: Present: mucous membranes moist - Routine Respiratory Exam Present: decreased breath sounds. Absent: rales, respiratory distress, rhonchi - Routine Cardiovascular Exam Present: RRR - Routine Abdominal Exam Present: soft, non distended, non tender. Absent: normoactive bowel sounds ( slight decrease) - Routine Extremities Exam Present: edema (+1). Absent: cyanosis, clubbing - Routine Musculoskeletal Exam Musculoskeletal: Present: no clubbing or cyanosis - Routine Skin Exam Present: dry, warm - Routine Neurological Exam Present: alert, vision grossly intact, hearing grossly intact - Routine Psychiatric Exam Present: cooperative. Absent: agitated Results - Labs CBC & Chem 7: 03/20/18 04:32 03/20/18 04:32 Microbiology Results: Microbiology 03/14/18 08:13 Peripheral/Iv Start Gram Stain - Final Not performed 03/14/18 08:17 Peripheral/Iv Start Blood Culture - Final No Growth After 5 Days 03/16/18 17:44 Sputum, Expectorated Gram Stain - Final 03/16/18 17:44 Sputum, Expectorated Sputum Culture - Final Tawnya albicans Normal Respiratory Nuria 03/10/18 09:48 Peripheral/Iv Start Gram Stain - Final Not performed 03/10/18 09:48 Peripheral/Iv Start Blood Culture - Final No Growth After 5 Days 03/10/18 09:47 Peripheral/Iv Start Gram Stain - Final Not performed 03/10/18 09:47 Peripheral/Iv Start Blood Culture - Final No Growth After 5 Days Assessment and Plan (1) Leukocytosis Current visit: Yes Status: Acute Assessment and Plan: Assessment Suspect pneumonia - infiltrate on CXR decreasing Leukocytosis Pulmonary edema Acute Dyspnea/Hypoxic respiratory failure - Resolving Mild acidosis with +AG - resolved. VT/SVT S/P cardioversion -Bi V ICD placed on 03/10/18 -On amiodarone 200mg BID, On Beta clarita with hold parameters for BP PAF - Self converted Elevated LFTs Severe, Dilated, Non ischemic Cardiomyopathy -EF 10% with severe MR -Pt admits heavy ETOH consumption 6-12 beers daily for many years prior to one year ago. -On Coreg with hold parameters for BP -Not on JAGDISH I or ARB due to low normal BP and acute on CKD -Bi V ICD placed Systolic Heart failure Hyperlipidemia -On a statin-hold for now due to elevated LFTs Hypertension NSTEMI - Likely Type 2 Mild thrombocytopenia (Not POA) PAD Acute Kidney injury - improving Stage III CKD Hyperkalemia (Not POA) Hypokalemia (Not POA) Thrush Abdominal distention - ileus vs constipation Schizophrenia Depression History of CVA Chronic pain Obesity Plan WBC elevated today - clinically patient showing improvement. Will stop Zosyn, start Augmentin. Renal status stable - creatinine 2.0. Start bladder retraining. Breathing making gains - weaning off BiPAP, transitioning to home CPAP at night. Cardiac care and medications as per cardiology. Possible discharge tomorrow if continues to do well. Will recheck CBC in am to to resolving leukocytosis/pneumonia. Will recheck CMP in am due to JIMMIE and elevated LFTs. Case discussed with nursing,Dr Gibbs, Kylee Summers, and pt's parents. Time spent with patient care 25 minutes. DVT Prophylaxis: SCD's, Eliquis Resuscitation Status: Full Code - Time spent with patient Time with patient PN: 25 minutes - Physician Narrative Physician: Jj Serna MD Narrative: Date: 03/20/18 Time: 1810 Hospital Course Summary Disclaimer: The visit summary below is not to be considered part of the above Progress Note.
[2018-03-20] MEDS: AMOX/CLAV 875 MG/125 MG TABLET PO SCH (22:37)
[2018-03-20] MEDS: APIXABAN 5 MG TABLET PO SCH (22:38)
[2018-03-21] MEDS: ACETAMINOPHEN 325 MG TABLET PO PRN (00:26)
[2018-03-21] MEDS: HYDROCODONE/APAP 5mg/325mg TABLET PO PRN ×2 (04:54→11:54)
[2018-03-21] MEDS: LEVOTHYROXINE 125 MCG TABLET PO SCH (05:59)
[2018-03-21] MEDS: ONDANSETRON 4 MG/2 ML INJECTION IVP PRN (05:59)
[2018-03-21] MEDS: ALBUTEROL/IPRATROPIUM 2.5mg-0.5mg/3ml NEB AEROSOL SCH ×2 (06:32→10:36)
[2018-03-21] MEDS: AMOX/CLAV 875 MG/125 MG TABLET PO SCH (08:54)
[2018-03-21] MEDS: ASPIRIN *EC* 81 MG TABLET PO SCH (08:55)
[2018-03-21] MEDS: APIXABAN 5 MG TABLET PO SCH (08:55)
[2018-03-21] MEDS: AMIODARONE 200 MG TABLET PO SCH (08:55)
[2018-03-21] MEDS: CLOPIDOGREL 75 MG TABLET PO SCH (08:55)
[2018-03-21] MEDS: DOCUSATE SODIUM 100 MG CAPSULE PO SCH (08:55)
[2018-03-21] MEDS: POLYETHYL GLYCOL 3350 17gm PACKET PO SCH (09:00)
[2018-03-21] MEDS: CARVEDILOL 12.5 MG TABLET PO SCH (09:00)
--- NOTE | 2018-03-21 09:28 | XRay Report ---
Indication: dyspnea PROCEDURE: XR chest 1V: Encounter: Initial Comparison: March 19, 2018 Findings: Support devices are stable. Persistent right lower lobe airspace disease. No new or worsening consolidation. No pneumothorax or effusion. Cardiac silhouette and mediastinal contours are stable. Pulmonary vascularity is stable. Impression: Stable chest. .
--- NOTE | 2018-03-21 09:45 | Discharge Summary ---
<Kylee Richards - Last Filed: 03/21/18 09:41> Discharge Information Date of admission: 03/06/18 14:11 Anticipated date of discharge: 03/21/18 Attending Physician: Jose C Stahl MD Primary care physician: Mirza Stevens MD Consults: 03/10/18 08:48 Physician Consult [CONS] Routine Consulting Provider: Jj Serna Reason For Exam: Medical management Ordering Provider has Notified Screen Maker: No 03/10/18 10:14 Physician Consult [CONS] Routine Consulting Provider: Jeremie Gibbs Reason For Exam: respiratory distress Ordering Provider has Notified Screen Maker: Yes - Discharge Diagnosis (1) Cardiomyopathy Status: Chronic (2) HTN (hypertension) Status: Chronic (3) CAD (coronary artery disease) Status: Chronic (4) CKD (chronic kidney disease) Status: Chronic (5) Hyperlipidemia Status: Chronic (6) Acute dyspnea Status: Acute (7) Acute systolic CHF (congestive heart failure) Status: Acute (8) SVT (supraventricular tachycardia) Status: Acute (9) NSTEMI (non-ST elevated myocardial infarction) Status: Acute (10) Acute renal failure superimposed on chronic kidney disease Status: Acute Dilated nonischemic cardiomyopathy, acute systolic heart failure, V tach, AFib, CAD, CKD - Procedures Procedures: DATE OF PROCEDURE March 06, 2018 The patient is a 57-year-old gentleman with cardiomyopathy who developed arrhythmias and this afternoon he decompensated with ventricular tachycardia and was referred for cardioversion. Due to the emergent nature of the procedure consent was not obtained. PROCEDURE 1. DC cardioversion of ventricular tachycardia into sinus. TECHNIQUE Conscious sedation was performed using Versed and fentanyl. Anterolateral Zoll pads were applied. 360 joules of energy was delivered and the patient converted from ventricular tachycardia into sinus tachycardia. He tolerated the procedure well with no complications. IMPRESSION 1. Successful DC cardioversion of ventricular tachycardia into sinus tachycardia. Date of Exam: 03/07/18 Type of Exam(s): CA heart cath LT DATE OF PROCEDURE March 07, 2018 INDICATIONS The patient is a 57-year-old gentleman who was admitted with congestive heart failure and had sustained ventricular tachycardia requiring resuscitation and was referred for further evaluation by cardiac catheterization and possible intervention. INFORMED CONSENT Informed consent was obtained after explaining the procedure and the potential risks to the patient and mother who is the DPOA, who agreed to proceed with the procedure. PROCEDURE 1. Left heart catheterization. 2. Coronary angiography. 3. Measurement of the LVEDP by crossing the aortic valve and placing catheter in left ventricular cavity. TECHNIQUE He was prepped and draped in the usual sterile techniques. Conscious sedation was performed using Versed and fentanyl. 1% lidocaine was used for local anesthesia. Using modified Seldinger technique, arterial access was obtained into the right radial artery with placement of a 6-Thai arterial sheath. 3000 units of heparin, 300 mcg of nitroglycerin, and 2.5 mg of verapamil were given through the arterial sheath. Left ventricular end-diastolic pressure was 24 and there was no gradient across the aortic valve. CORONARY ANGIOGRAPHY Left main was free of significant lesions. Left anterior descending artery had minor irregularities but no significant lesions with calcification of the LAD and diagonals. Two diagonals were coming off of the LAD with calcification and no significant stenosis. Left circumflex artery had calcification with 30% proximal stenosis. Right coronary artery had minor irregularities but no significant lesions. The patient tolerated the procedure well with no complications. IMPRESSION 1. Mild coronary artery disease as described above. PLAN Continue medical management. - Laboratory Labs: 03/21/18 04:45 03/21/18 04:45 - Microbiology Microbiology 03/14/18 08:13 Peripheral/Iv Start Gram Stain - Final Not performed 03/14/18 08:17 Peripheral/Iv Start Blood Culture - Final No Growth After 5 Days 03/16/18 17:44 Sputum, Expectorated Gram Stain - Final 03/16/18 17:44 Sputum, Expectorated Sputum Culture - Final Tawnya albicans Normal Respiratory Nuria 03/10/18 09:48 Peripheral/Iv Start Gram Stain - Final Not performed 03/10/18 09:48 Peripheral/Iv Start Blood Culture - Final No Growth After 5 Days 03/10/18 09:47 Peripheral/Iv Start Gram Stain - Final Not performed 03/10/18 09:47 Peripheral/Iv Start Blood Culture - Final No Growth After 5 Days History of Present Illness HPI: Mirza is a 57 year old male who is known to Dr. Stahl's practice with a history of schizophrenia who resides at [facility]. He reports respiratory distress and severe SOA which he woke up with yesterday. He states he has been telling the staff and no one would believe him until today. He reports dizziness and near syncope but denies chest pain or pressure, palpitations, N/V. His history is gathered from patient's medications and what he and family are able to report. 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 Besides schizophrenia and hypothyroidism & CKD he also has a h/o stroke, COPD, HTN, cardiomyopathy, CAD with PCI, & PAD with LLE AKA. He is examined in his room on the Surgical unit where he is in mild distress, on O2 at 4L/NC, c/o SOA. He denies chest pain or palpitations despite HR in the 130-140s on monitor. Radial pulse is about half of rate of the rate on the monitor. He denies recent illness, fever chills, sore throat, cough, N/V/D, dysuria. Hospital Course This is a general summary of the patient's hospital course. For more details refer to the complete medical record. Hospital course: 03/14/18 Dyspnea: CXR: Resolved pulmonary edema. Stable right lower lobe airspace disease. CKD: BUN 118/SCr 3.8 today Transfer to CCU for Milrinone 0.375mcg/kg drip NS at 75mL X 1 liter 03/15/2018 [facility]: CXR: increased pulmonary edema. Cr and BUN decreased. Cont milrinone gtt 0.375. - lungs sounds clear and edema not bad in right leg. - s/p BiV/ICD - incision looks good. he is not pacing. A/CKD: recent Cr 3.8 -> 3.3 today and BUN up to 121 today. no diuretic. 03/16/2018 [facility]: CXR: increased pulmonary edema. Cr and BUN decreased. Cont milrinone gtt 0.375. - lungs sounds clear and edema not bad in right lower leg. - U/O ave 40-60 this morning. U/O 30 ml/hr this afternoon. - add dopamine 2 mcg/kg/min to increase perfusion to kidneys and improve U/ O. - s/p BiV/ICD - incision looks good. he is not paced - Coreg held the last 2 mornings due to low BP. A/CKD: recent Cr 3.8 -> 3.3 -> 2.8 today and BUN down to 115 today. no diuretic. NSTEMI T2 s/p HC: no significant CAD. Cont ASa and Plavix. Thrush: add Nystatin swish and swallow. 03/17/18 [facility]: CXR: Improved aeration with decreasing interstitial/opacities bilateral. Mild residual interstitial opacities overlying the lower lung zones. - Hold Coreg due to low B/P - BUN/ Cr 103/2.5 today, wean Milrinone over next 8 hours - Heparin 5000 units q8h SQ for DVT 03/18/18 [facility]: CXR: Impression: Slightly improved aeration of the right lung base. - Resume Coreg 3.125mg BID - BUN/ SCr 86/2.0, BNP 7390 - Okay to transfer to Surgical, needs room close to Nurses desk for close observation 03/19/18 Increase Coreg to 6.25mg BID - Continue Amiodarone at this time, LFTS trending down - Continue to monitor renal BUN/ SCr 83/2.3 03/20/18 Increase Coreg to 12.5mg BID, as unable to use Reji or Arb due to CKD - LFTs continues to trend down. - Pacemaker interrogation shows atrial fibrillation - Stop Heparin, start Eliquis 5mg po BID for stroke prevention Time spent with patient: 25 - 35 minutes Resuscitation Status: Full Code Exam Vital signs: Temperature 97.5 F 03/21/18 08:05 Pulse Rate 94 03/21/18 08:05 Respiratory Rate 18 03/21/18 08:05 Blood Pressure 119/70 03/21/18 08:05 Pulse Oximetry 94 03/21/18 08:05 - Constitutional no acute distress, well nourished, cooperative - Routine HEENT Exam Head: Present: normocephalic ENT: Present: mucous membranes moist - Routine Neck Exam Absent: JVD, carotid bruit - Routine Chest/Breast/Axilla Exam Chest wall: Present: pacemaker - Routine Respiratory Exam Present: diminished air movement. Absent: dyspnea - Routine Cardiovascular Exam Present: irregular rhythm - Routine Abdominal Exam Present: soft, non tender - Routine Extremities Exam Present: edema - Routine Skin Exam Present: intact, dry, warm - Routine Neurological Exam Present: alert - Routine Psychiatric Exam Present: normal affect Results 03/21/18 04:45 03/21/18 04:45 Cardiac Enzymes 03/21/18 Range/Units 04:45 AST 61 H (17-59) U/L CBC 03/21/18 Range/Units 04:45 WBC 20.1 H (4.5-11.0) T/MM3 RBC 4.12 L (4.50-5.90) M/MM3 Hgb 13.3 L (13.5-17.5) GM/DL Hct 41.7 (41-53) % Plt Count 169 (130-400) T/MM3 Comprehensive Metabolic Panel 03/21/18 Range/Units 04:45 Sodium 138 (134-144) MEQ/L Potassium 4.8 (3.6-5) MEQ/L Chloride 98 (98-107) MEQ/L Carbon Dioxide 27 (22-30) MEQ/L BUN 80.0 H* (9-20) MG/DL Creatinine 2.1 H (0.8-1.5) mg/dL Glucose 121 H (75-110) MG/DL Calcium 8.5 (8.4-10.2) MG/DL AST 61 H (17-59) U/L ALT 144 H (1-50) U/L Alkaline Phosphatase 78 (38-126) U/L Total Protein 6.4 (6.3-8.2) g/dL Albumin 3.5 (3.5-5.0) g/dL Intake and Output 03/20/18 03/21/18 03/21/18 22:59 06:59 14:59 Intake Total 450 / 450 200 / 200 Output Total 500 / 500 600 / 600 Balance -50 / -50 -400 / -400 Intake: IV 100 / 100 Piperacillin/Tazobactam 2.25 gm 100 / 100 In Ns 100 ml @ 200 mls/hr IV Q8H [facility] Rx#:[id number] Oral 350 / 350 200 / 200 Output: Urine Amount (Catheter) 500 / 500 600 / 600 Other: Urine Appearance Sediment Clear Urine Color Dark Yellow Yellow Urine Odor Normal Size of Bowel Movement Smear # Bowel Movements 0 Weight 232 lb 9.403 oz Patient Weight 03/22/18 06:59 Weight 232 lb 9.403 oz - Imaging and Cardiology Imaging & Cardiology Narrative: Date of Exam: 03/06/18 Type of Exam(s): US echo doppler complete DATE OF PROCEDURE March 06, 2018 This is a two-dimensional echo with spectral Doppler, color-flow and M-mode. It was obtained in a patient with congestive heart failure and ventricular tachycardia. Left atrium is dilated. Left ventricle is dilated. Left ventricle wall thickness is normal. LV systolic function is reduced with severe global hypokinesia with ejection fraction of about 10-15%. Right atrium is dilated. Right ventricle is normal. Aortic root dimension is normal. Mitral valve is morphologically normal with moderate to severe mitral regurgitation. Aortic valve is a trileaflet structure with mild aortic insufficiency and no stenosis. Tricuspid valve shows moderate to severe tricuspid regurgitation with estimated pulmonary artery systolic pressure of 62. Pulmonary valve shows mild pulmonary insufficiency. There is no pericardial effusion. IMPRESSION 1. Severe global hypokinesia with ejection fraction of 10-15%. 2. Biatrial dilation. 3. Right ventricular dilation. 4. Moderate to severe mitral regurgitation. 5. Moderate to severe tricuspid regurgitation with estimated pulmonary artery systolic pressure of 62. 6. Mild aortic insufficiency. 7. Mild pulmonary insufficiency. Date of Exam: 03/10/18 Ordering Provider: Jose C Stahl MD Type of Exam(s): XR chest 1V Reason for Exam(s): PPM Indication: PPM PROCEDURE: XR chest 1V: Encounter: Initial Comparison: March 10, 2018 Findings: New left-sided dual-lead cardiac pacemaker defibrillator with right atrial and right ventricular leads. No evidence of lead fracture. Continued mild interstitial prominence. No new or worsening consolidation. No pneumothorax. Heart size and mediastinal contours are stable. Impression: New left pacemaker without evidence of pneumothorax. Date of Exam: 03/21/18 Ordering Provider: Shena Sandoval Type of Exam(s): XR chest 1V Reason for Exam(s): dyspnea Indication: dyspnea PROCEDURE: XR chest 1V: Encounter: Initial Comparison: March 19, 2018 Findings: Support devices are stable. Persistent right lower lobe airspace disease. No new or worsening consolidation. No pneumothorax or effusion. Cardiac silhouette and mediastinal contours are stable. Pulmonary vascularity is stable. Impression: Stable chest. Date of Exam: 03/12/18 Ordering Provider: Brooke Boateng Type of Exam(s): US renal BI Reason for Exam(s): JIMMIE Indication: JIMMIE PROCEDURE: US renal BI: Encounter: Initial Comparison: None Technique: Grayscale and color Doppler sonographic imaging of both kidneys was performed. FINDINGS: Visualization of the left kidney was limited due to body habitus and acoustic shadowing. No gross hydronephrosis or renal mass. The right kidney measures 8.9 cm in length, and the left kidney measures 9.8 cm in length. IMPRESSION: No hydronephrosis. = = = = = = = = = = = = = = = = = = = = = = = = = = = = = = = = = = = = = = = = = = = = = = = = = = = = = = = = = = = Date of Exam: 03/16/18 Ordering Provider: Jackeline Rivero MD Type of Exam(s): XR KUB Reason for Exam(s): Abdominal distention Indication: Abdominal distention PROCEDURE: XR KUB: Encounter: Initial Comparison: None Findings: Airspace disease in the lower lobes. No gross free air on this supine view. Bowel gas pattern is nonobstructive and nonspecific with gas in small and large bowel to the level of the rectum. Right common iliac artery stent. Impression: Probable ileus. Discharge Plan - Med Rec/Dispo Referrals/Follow Up: Jose C Stahl MD [Physician] - 2 Weeks Quique Instructions: Pacemaker (DC) Prescriptions: New Amiodarone [Pacerone] 200 mg PO DAILY #30 tab Apixaban [Eliquis] 5 mg PO BID #60 tab Carvedilol [Coreg] 12.5 mg PO BIDWM #60 tab Nitroglycerin [Nitrostat] 0.4 mg SL Q5M PRN #25 tab PRN Reason: Angina Nystatin Oral Liq. [Mycostatin] 5 ml PO QID #12 udc Albuterol Neb (0.083%) [Proventil Neb (0.083%)] 2.5 mg AEROSOL Q2HR PRN #30 each PRN Reason: Dyspnea Amoxicillin/Potassium Clav [Amox-Clav 875-125 mg Tablet] 875 mg PO Q12HR #10 tab Continue Gabapentin 300 mg PO BID raNITIdine HCl [Ranitidine HCl] 150 mg PO 1800 Levothyroxine Sodium 125 mcg PO MOTUWETHFR@0630 Potassium Chloride [K-Tab ER] 20 meq PO DAILY Multivitamin [One Daily Multivitamin] 1 each PO DAILY Furosemide [Lasix 40 mg Tab] 1 tab PO DAILY Tamsulosin [Flomax] 0.4 mg PO 1800 Atorvastatin Calcium 20 mg PO 1800 Levothyroxine Tab [Synthroid] 250 mcg PO SUSA@0630 Budesonide/Formoterol Fumarate [Symbicort 160-4.5 Mcg Inhaler] 2 puff INH BID Docusate Sodium [Colace] 1 cap PO BID Finasteride [Proscar] 5 mg PO 1800 Polyethylene Glycol 3350 [Miralax] 17 gm PO DAILY Mirabegron [Myrbetriq] 50 mg PO DAILY Isosorbide Mononitrate ER [Imdur] 30 mg PO DAILY Clopidogrel Bisulfate [Clopidogrel] 75 mg PO DAILY Aspirin *EC* [Ecotrin] 1 tab PO DAILY Acetaminophen [Tylenol] 325 mg PO Q4H PRN PRN Reason: Pain Discontinued Losartan Potassium 25 mg PO DAILY - Disposition 03 To SNU Not [facility] (SNF) - Dismissal Complete Discharge Instructions are:: Complete <JoseC Stahl - Last Filed: 03/28/18 14:18> Discharge Information Date of admission: 03/06/18 14:11 Attending Physician: Jose C Stahl MD Primary care physician: Mirza Stevens MD Consults: 03/10/18 08:48 Physician Consult [CONS] Routine Consulting Provider: Jj Serna Reason For Exam: Medical management Ordering Provider has Notified Screen Maker: No 03/10/18 10:14 Physician Consult [CONS] Routine Consulting Provider: Jeremie Gibbs Reason For Exam: respiratory distress Ordering Provider has Notified Screen Maker: Yes - Discharge Diagnosis (1) Cardiomyopathy Status: Chronic (2) HTN (hypertension) Status: Chronic (3) CAD (coronary artery disease) Status: Chronic (4) CKD (chronic kidney disease) Status: Chronic (5) Hyperlipidemia Status: Chronic (6) Acute dyspnea Status: Acute (7) Acute systolic CHF (congestive heart failure) Status: Acute (8) SVT (supraventricular tachycardia) Status: Acute (9) NSTEMI (non-ST elevated myocardial infarction) Status: Acute (10) Acute renal failure superimposed on chronic kidney disease Status: Acute - Laboratory Labs: 03/21/18 04:45 03/21/18 04:45 - Microbiology Microbiology 03/14/18 08:13 Peripheral/Iv Start Gram Stain - Final Not performed 03/14/18 08:13 Peripheral/Iv Start Blood Culture - Final No Growth After 5 Days 03/14/18 08:17 Peripheral/Iv Start Blood Culture - Final No Growth After 5 Days 03/16/18 17:44 Sputum, Expectorated Gram Stain - Final 03/16/18 17:44 Sputum, Expectorated Sputum Culture - Final Tawnya albicans Normal Respiratory Nuria 03/10/18 09:48 Peripheral/Iv Start Gram Stain - Final Not performed 03/10/18 09:48 Peripheral/Iv Start Blood Culture - Final No Growth After 5 Days 03/10/18 09:47 Peripheral/Iv Start Gram Stain - Final Not performed 03/10/18 09:47 Peripheral/Iv Start Blood Culture - Final No Growth After 5 Days Hospital Course This is a general summary of the patient's hospital course. For more details refer to the complete medical record. Exam Vital signs: Temperature 97.6 F 03/21/18 12:18 Pulse Rate 91 03/21/18 12:18 Respiratory Rate 18 03/21/18 12:18 Blood Pressure 134/72 03/21/18 12:18 Pulse Oximetry 94 03/21/18 12:18 Results 03/21/18 04:45 03/21/18 04:45 Attestation Narriative - Attestation Attestation Narrative: 03/28/18 14:18 Recommendation After examining the patient I agree with the above assessment. I am involved in the formulation of the patient's plan of care.
[2018-03-21] MEDS: NYSTATIN 500,000 units/5 ml ORAL LIQUID PO SCH (09:56)
--- NOTE | 2018-03-21 10:05 | Extended Care Facility Orders ---
Admission Orders Admit to:: [facility] Allergies/Adverse Reactions: Allergies dopamine Allergy (Verified 03/16/18 18:02) Nausea Admitting Diagnosis: heart failure Admitting Physician: Jose C Stahl MD Attending Physician: Jose C Stahl MD Code Status: Full Code Anticiapted Length of Stay: 30 days or less Rehab Potential: fair Rehab Prognosis: fair Diet: 03/10/18 Breakfast Cardiac Diet [DIET] Sodium Restriction: 2GRAM Fluid Restriction: FR 1800ML Fat Content: LOW May use Facility Protocol or Standing Orders: Yes May have flu vaccine: Yes Evaluations/Treatment: PT, OT [facility] Certification: I certify that SNF services are required to be given on an Inpatient basis because of the patients need for nursing home care on a continuing basis for the condition(s) for which he/she received inpatient hospital services prior to his/her transfer to the SNF. SNF inpatient care is necessary for the following reasons Indication for [facility]: Med Admininistration, Assess Anticoagulation Therapy, Teach CHF - Additional Information In Event of Arrest: Start CPR,call 911,send patient to the ER Referrals: Jose C Stahl MD [Physician] - 2 Weeks
--- NOTE | 2018-03-21 10:26 | Progress Note ---
- Date 03/21/18 Subjective: F/U: Acute resp failure, pulm edema, pneumonia Patient is sitting up in bed, actively eating breakfast. Nursing at bedside. Appears to be doing better with plan to discharge back to facility today. Objective Vital signs: Temperature 97.5 F 03/21/18 08:05 Pulse Rate 94 03/21/18 08:05 Respiratory Rate 16 03/21/18 09:44 Blood Pressure 119/70 03/21/18 08:05 Pulse Oximetry 94 03/21/18 08:05 Height/Weight/BMI: Height 5 ft 8 in Weight 232 lb 9.403 oz Body Mass Index 35.0 - Constitutional Present: no acute distress, well nourished, well developed, cooperative - Routine HEENT Exam Head: Present: normocephalic, atraumatic Eye: Present: PERRL. Absent: conjunctival icterus ENT: Present: mucous membranes moist Comments: Eating on exam. - Routine Respiratory Exam Present: decreased breath sounds, crackles Comments: currently on 2L NC. - Routine Cardiovascular Exam Present: RRR, S1, S2 - Routine Abdominal Exam Present: soft, normoactive bowel sounds, non tender - Routine Extremities Exam Present: edema (trace), pulses intact - Routine Back/Spine/Pelvis Exam Back/Spine: Present: full ROM. Absent: vertebral tenderness - Routine Musculoskeletal Exam Musculoskeletal: Present: no clubbing or cyanosis, moving extremities well - Routine Skin Exam Present: dry, warm Comments: Afebrile - Routine Neurological Exam Present: alert, moving all extremities, hearing grossly intact - Routine Lymphatic Exam Lymphatic: Absent: lymphedema - Routine Psychiatric Exam Present: cooperative Results - Labs CBC & Chem 7: 03/21/18 04:45 03/21/18 04:45 Microbiology Results: Microbiology 03/14/18 08:13 Peripheral/Iv Start Gram Stain - Final Not performed 03/14/18 08:17 Peripheral/Iv Start Blood Culture - Final No Growth After 5 Days 03/16/18 17:44 Sputum, Expectorated Gram Stain - Final 03/16/18 17:44 Sputum, Expectorated Sputum Culture - Final Tawnya albicans Normal Respiratory Nuria 03/10/18 09:48 Peripheral/Iv Start Gram Stain - Final Not performed 03/10/18 09:48 Peripheral/Iv Start Blood Culture - Final No Growth After 5 Days 03/10/18 09:47 Peripheral/Iv Start Gram Stain - Final Not performed 03/10/18 09:47 Peripheral/Iv Start Blood Culture - Final No Growth After 5 Days Assessment and Plan (1) Leukocytosis Current visit: Yes Status: Acute Assessment and Plan: Assessment Suspect pneumonia - infiltrate on CXR decreasing Leukocytosis Pulmonary edema Acute Dyspnea/Hypoxic respiratory failure - Resolving Mild acidosis with +AG - resolved. VT/SVT S/P cardioversion -Bi V ICD placed on 03/10/18 -On amiodarone 200mg BID, On Beta clarita with hold parameters for BP PAF - Self converted Elevated LFTs Severe, Dilated, Non ischemic Cardiomyopathy -EF 10% with severe MR -Pt admits heavy ETOH consumption 6-12 beers daily for many years prior to one year ago. -On Coreg with hold parameters for BP -Not on REJI I or ARB due to low normal BP and acute on CKD -Bi V ICD placed Systolic Heart failure Hyperlipidemia -On a statin-hold for now due to elevated LFTs Hypertension NSTEMI - Likely Type 2 Mild thrombocytopenia (Not POA) PAD Acute Kidney injury - improving Stage III CKD Hyperkalemia (Not POA) Hypokalemia (Not POA) Thrush Abdominal distention - ileus vs constipation Schizophrenia Depression History of CVA Chronic pain Obesity Plan WBC continues to trend up. Remains afebrile. Will continue Augmentin. Repeat CXR revealed stable chest. Plan to discharge back to facility today. Renal function stable. DVT Prophylaxis: SCD's Resuscitation Status: Full Code - Time spent with patient Time with patient PN: 25 minutes - Physician Narrative Physician: Jj Serna MD Narrative: Date: 03/21/18 Time: 1110 Have independently interviewed and examined pt. Chart reviewed. Case discussed with Kylee Deras and my PA. Above care plan developed with my supervision; agree with above. Doing okay. Attempting to communicate, but very difficult to understand what he is trying to get across. Not feeling ab pain or bloating. No nausea. Breathing fair. Lungs: decreased CV: regular AB: soft nt BS present Plan: Anticipate discharge today. Would continue Augmenting for 5 days. Hospital Course Summary Disclaimer: The visit summary below is not to be considered part of the above Progress Note. Hospital Course: 03/14/18 Dyspnea: CXR: Resolved pulmonary edema. Stable right lower lobe airspace disease. CKD: BUN 118/SCr 3.8 today Transfer to CCU for Milrinone 0.375mcg/kg drip NS at 75mL X 1 liter 03/15/2018 [facility]: CXR: increased pulmonary edema. Cr and BUN decreased. Cont milrinone gtt 0.375. - lungs sounds clear and edema not bad in right leg. - s/p BiV/ICD - incision looks good. he is not pacing. A/CKD: recent Cr 3.8 -> 3.3 today and BUN up to 121 today. no diuretic. 03/16/2018 [facility]: CXR: increased pulmonary edema. Cr and BUN decreased. Cont milrinone gtt 0.375. - lungs sounds clear and edema not bad in right lower leg. - U/O ave 40-60 this morning. U/O 30 ml/hr this afternoon. - add dopamine 2 mcg/kg/min to increase perfusion to kidneys and improve U/ O. - s/p BiV/ICD - incision looks good. he is not paced - Coreg held the last 2 mornings due to low BP. A/CKD: recent Cr 3.8 -> 3.3 -> 2.8 today and BUN down to 115 today. no diuretic. NSTEMI T2 s/p HC: no significant CAD. Cont ASa and Plavix. Thrush: add Nystatin swish and swallow. 03/17/18 [facility]: CXR: Improved aeration with decreasing interstitial/opacities bilateral. Mild residual interstitial opacities overlying the lower lung zones. - Hold Coreg due to low B/P - BUN/ Cr 103/2.5 today, wean Milrinone over next 8 hours - Heparin 5000 units q8h SQ for DVT 03/18/18 [facility]: CXR: Impression: Slightly improved aeration of the right lung base. - Resume Coreg 3.125mg BID - BUN/ SCr 86/2.0, BNP 7390 - Okay to transfer to Surgical, needs room close to Nurses desk for close observation 03/19/18 Increase Coreg to 6.25mg BID - Continue Amiodarone at this time, LFTS trending down - Continue to monitor renal BUN/ SCr 83/2.3 03/20/18 Increase Coreg to 12.5mg BID, as unable to use Reji or Arb due to CKD - LFTs continues to trend down. - Pacemaker interrogation shows atrial fibrillation - Stop Heparin, start Eliquis 5mg po BID for stroke prevention 03/21/18 WBC continues to trend up. Remains afebrile. Will continue Augmentin. Repeat CXR revealed stable chest. Plan to discharge back to facility today. Renal function stable.
[2018-03-21 10:38] VITALS: RESP 18
[2018-03-21] MEDS ORDERED: NEOMYCIN/POLYMYXIN/BACITRACIN OINT PACKET TP ONE (10:53)
[2018-03-21 12:19] VITALS: BP 134/72; PULSE 91; TEMP 97.6; O2SAT 94
== END 2018-03-21 13:27 | DRG 222 ==
LOC: SRG → OBSVTOIN 14:11 → CCU 17:30 → SRG 03-11 15:06 → CCU 03-14 15:30 → SRG 03-18 16:05
PROVIDERS: ADMIT Internal Medicine Cardiovascular Disease; ATTEND Internal Medicine Cardiovascular Disease